=== PATIENT | female | born 1955 | race Caucasian/White ===

== ENCOUNTER → 2020-07-25 07:34 | Outpatient (BNVA) | payer MEDICARE, OTHER, SELFPAY | PROVIDERS: PCP Internal Medicine; Referring Provider Internal Medicine; Visit Provider Nurse Practitioner Gerontology | DX: E13.9 Other specified diabetes mellitus without complications (principal); S36.209S Unspecified injury of unspecified part of pancreas, sequela; E78.5 Hyperlipidemia, unspecified; E55.9 Vitamin D deficiency, unspecified; Z79.4 Long term (current) use of insulin | CPT/HCPCS: 82947; 99212 ==

== ENCOUNTER 2020-10-25 06:12 | Outpatient (REF) | payer MEDICARE, OTHER, SELFPAY ==
[2020-10-25 11:22] LABS: Estimated Average Glucose 169 mg/dL; Glucose Urine UA NEG (NEG); Hemoglobin A1c % 7.5 %; Leukocyte Esterase Urine 1+ (NEG); Nitrite Urine NEG (NEG); PH 7.5 (5.0-8.0); Specific Gravity - Urine 1.015 (1.005-1.025); Urine Blood NEG (NEG); Urine Ketones NEG (NEG); Urine Protein NEG (NEG-TRACE)
[2020-10-25 11:23] LABS: Basophils Percent Auto 0.4 % (0-2); Eosinophils Absolute Auto 0.2 X10*3/uL (0.0-0.4); Eosinophils Percent Auto 2.2 % (0-4); Hematocrit 41.7 % (37-47); Imm Gran Abs Auto 0.02 X10*3/uL (0.00-0.03); Imm Gran Pct Auto 0.2 % (0.0-0.4); Lymphocytes Absolute Auto 5.2 X10*3/uL (1.2-4.9); Lymphocytes Percent Auto 48.9 % (20-40); MANUAL DIFF FLAG SCAN; Mean Corpuscular HGB Conc 33.6 g/dl (31.0-35.0); Mean Corpuscular Hemoglobin 29.7 pg (27.0-33.0); Mean Corpuscular Volume 88.5 fL (80-98); Mean Platelet Volume 10.3 fL (9.4-12.3); Monocytes Absolute Auto 1.1 X10*3/uL (0.1-1.2); Monocytes Percent Auto 10.1 % (2-11); Neutrophils Absolute Auto 4.1 X10*3/uL (2.0-8.3); Neutrophils Percent Auto 38.2 % (45-73); Platelet Count 419 X10*3/uL (160-400); Red Blood Count 4.71 X10*6/uL (4.20-5.50); Red Cell Distribution Width 13.2 % (11.0-16.0); SCAN SMEAR FLAG 1; White Blood Count 10.6 X10*3/uL (4.8-10.8)
[2020-10-25 11:24] LABS: Appearance Urine HAZY; Color Urine YELLOW
[2020-10-25 11:44] LABS: Bacteria Urine TRACE /LPF; RBC Urine 0 /HPF (0); Squamous Epithelial Cell Urine 3+ /LPF
[2020-10-25 11:53] LABS: Alanine Aminotransferase 22 U/L (0-31); Albumin Level 4.4 g/dL (3.5-5.0); Alkaline Phosphatase 108 U/L (39-117); Anion Gap 14 (12-20); Aspartate Amino Transferase 20 U/L (5-31); Bilirubin Total 0.6 mg/dL (0.0-1.0); Blood Urea Nitrogen 14 mg/dL (9-16); Calcium 9.3 mg/dL (8.4-10.2); Carbon Dioxide 27 mmol/L (22-29); Chloride 102 mmol/L (96-108); Cholesterol 157 mg/dL; Estimated Glomerular Filt Rate > 60; Glucose Fasting 148 mg/dL (60-99); HDL Cholesterol 50 mg/dL; LDL Cholesterol Calculated 79 mg/dl; Potassium 4.3 mmol/L (3.3-5.1); Sodium 139 mmol/L (135-145); Total Protein 7.3 g/dL (6.5-8.0); Triglycerides 143 mg/dL
[2020-10-25 12:02] LABS: Creatinine Urine 64.37 mg/dL; Thyroid Stimulating Hormone 2.03 uIU/mL (0.32-4.0)
[2020-10-25 12:04] LABS: Creatinine Urine 64.89 mg/dL; Microalbum/Creatinine Ratio Ur 38.5 ug/mg cr
[2020-10-25 12:11] LABS: SLIDE REVIEW VERIFIED
[2020-10-25 12:21] LABS: Folate 18.4 ng/mL (> or = 4.0); Vitamin B12 449 pg/mL (200-900)
[2020-10-26 08:39] LABS: SARS COV2 IgG Negative (Negative)
== END 2020-10-25 06:13 | disposition home or self-care (01) ==
LOC: HO.HMGCLDS 06:12
PROVIDERS: PCP Internal Medicine; Visit Provider Internal Medicine
DX: E13.9 Other specified diabetes mellitus without complications (principal); S36.209S Unspecified injury of unspecified part of pancreas, sequela; E78.5 Hyperlipidemia, unspecified; E78.00 Pure hypercholesterolemia, unspecified; Z01.84 Encounter for antibody response examination
CPT/HCPCS: 36415; 80053; 80061; 81001; 82043; 82306; 82607; 82746; 83036; 84439; 84443; 85025; 86769

== ENCOUNTER 2020-11-06 11:11 | Outpatient (REF) | payer MEDICARE, OTHER, SELFPAY ==
[2020-11-06 13:53] LABS: Glucose Urine UA NEG (NEG); Leukocyte Esterase Urine TRACE (NEG); Nitrite Urine NEG (NEG); Specific Gravity - Urine <= 1.005 (1.005-1.025); UACC Culture Trigger YES; Urine Blood NEG (NEG); Urine Ketones NEG (NEG); Urine Protein NEG (NEG-TRACE)
[2020-11-06 13:55] LABS: Appearance Urine CLEAR; Color Urine YELLOW
[2020-11-06 14:05] LABS: Bacteria Urine TRACE /LPF; RBC Urine 0-2 /HPF (0); Squamous Epithelial Cell Urine 1+ /LPF; UACC CULT YES; WBC Urine 0-2 /HPF (0-4)
== END 2020-11-06 11:12 | disposition home or self-care (01) ==
LOC: HO.HMGCLDS 11:11
PROVIDERS: PCP Internal Medicine; Visit Provider Internal Medicine
DX: R30.0 Dysuria (principal); E78.5 Hyperlipidemia, unspecified
CPT/HCPCS: 81001; 87086

== ENCOUNTER → 2020-11-22 08:27 | Outpatient (BNVA) | payer MEDICARE, OTHER, SELFPAY | PROVIDERS: PCP Internal Medicine; Visit Provider Nurse Practitioner Gerontology | DX: Z13.89 Encounter for screening for other disorder (principal) | CPT/HCPCS: Q3014 ==

== ENCOUNTER 2021-02-05 15:10 | Outpatient (REF) | payer MEDICARE, OTHER, SELFPAY ==
--- NOTE | ~2021-02-05 | US_ITS ---
EXAMINATION: US THYROID CLINICAL INFORMATION: Nontoxic multinodular goiter. COMPARISON: Ultrasound soft tissue head/neck thyroid dated 02/09/2020 and 10/27/2018 TECHNIQUE: Linear transducer lind-scale and color Doppler examination with attention to the region of the thyroid. FINDINGS: SIZE: Measurements of the thyroid lobes and nodules are given in sagittal, anteroposterior and transverse dimensions respectively. Right Thyroid Lobe: 4.7 x 1.68 x 1.46 cm, volume 4.74 mL. Previously 4.1 x 1.8 x 1.7 cm, volume 6.6 mL. Parenchyma: The gland echotexture is homogeneous. Thyroid vascularity is normal. Left Thyroid Lobe: 3.73 x 1.68 x 1.47 cm, volume 4.83 mL. Previously 4.8 x 1.9 x 1.8 cm, volume 8.6 mL. Parenchyma: The gland echotexture is homogeneous. Thyroid vascularity is normal. Isthmus: 0.48 cm in maximum AP dimension. Previously 0.40 cm. Estimated total number of nodules greater than or equal to 1 cm: 2. Kennel Technician nodules are described as follows: 1. Location: Right inferior. Size: 1.1 x 0.75 x 0.81 cm, volume 0.35 mL. Previously: 0.90 x 0.60 x 0.90 cm, volume 0.25 mL. Nodule characteristics: Composition: Mixed cystic and solid (1). Echogenicity: Cannot be determined (1). Shape: Not taller than wide (0). Margins: Smooth (0). Echogenic Foci: Punctate echogenic foci (3). There are punctate echogenic foci. ACR TI-RADS total points: 5 Previous: n/a ACR TI-RADS category: 4 Previous: n/a Significant change in size (>/= 20% in 2 dimensions and minimal increase of 2 mm or 50% or greater increase in volume): None Change in features: None Change in ACR TI-RADS risk category: n/a 2. Location: Left mid. Size: 1.32 x 0.82 x 1.07 cm, volume 0.61 mL. Previously: 1.2 x 0.75 x 0.90 cm, volume 0.42 mL. Nodule characteristics: Composition: Spongiform (0). Echogenicity: Anechoic (0). Shape: Not taller than wide (0). Margins: Smooth (0). Echogenic Foci: None (0). ACR TI-RADS total points: 0 Previous: n/a ACR TI-RADS category: 1 Previous: n/a Significant change in size (>/= 20% in 2 dimensions and minimal increase of 2 mm or 50% or greater increase in volume): None Change in features: None Change in ACR TI-RADS risk category: n/a 3. Location: Left inferior. Size: 0.33 x 0.32 x 0.34 cm, volume 0.02 mL. Previously: 0.44 x 0.36 x 0.33 cm, volume 0.02 mL. Nodule characteristics: Composition: Cystic(0). ACR TI-RADS total points: 0 Previous: n/a ACR TI-RADS category: 1 Previous: n/a Significant change in size (>/= 20% in 2 dimensions and minimal increase of 2 mm or 50% or greater increase in volume): None Change in features: None Change in ACR TI-RADS risk category: Not available 4. Location: Left mid. Size: 0.92 x 0.55 x 0.85 cm, volume 0.22 mL. Previously: 0.85 x 0.51 x 0.63 cm, volume 0.27 mL. Nodule characteristics: Composition: Spongiform (0). Echogenicity: Anechoic (0). Shape: Not taller than wide (0). Margins: Smooth (0). Echogenic Foci: None (0). ACR TI-RADS total points: 0 Previous: n/a ACR TI-RADS category: 1 Previous: n/a Significant change in size (>/= 20% in 2 dimensions and minimal increase in TI-RADS 2 mm or 50% or greater increase in volume): None Change in features: None Change in ACR TI-RADS risk category: n/a NODES: No lymphadenopathy is seen in the tissue surrounding the thyroid gland. US/US thyroid IMPRESSION: Multiple thyroid nodules which are benign except for a right upper pole nodule which is 1.1 cm borderline ACR TI-RADS Category 4. ACR TI-RADS RECOMMENDATION REFERENCE: Ultrasound-guided fine-needle aspiration, followup ultrasound, no further followup. * TR1 (0 point) and TR 2 (2 points): No FNA or followup * TR3 (3 points): FNA if more than or equal to 2.5 cm in maximum dimension, followup ultrasound in 1, 3 and 5 years if 1.5 to 2.4 cm in maximum dimension. * TR4 (4-6 points): FNA if more than or equal to 1.5 cm in maximum dimension, followup ultrasound in 1, 2, 3 and 5 years if 1 to 1.4 cm in maximum dimension. * TR5 (more than or equal to 7 points): FNA if more than or equal to 1 cm in maximum dimension, followup ultrasound every year for 5 years if 0.5 to 0.9 cm in maximum dimension. * TR3, TR4 or TR5 nodules that are below the size threshold for followup receive no followup.
[2021-02-05 18:03] LABS: Free T4 (Free Thyroxine) 0.91 ng/dL (0.71-1.85)
== END 2021-02-05 15:11 | disposition home or self-care (01) ==
LOC: HO.HMGCX 15:10
PROVIDERS: PCP Internal Medicine; Visit Provider Internal Medicine Endocrinology, Diabetes & Metabolism
DX: E04.2 Nontoxic multinodular goiter (principal)
CPT/HCPCS: 36415; 76536; 84439; 84443

== ENCOUNTER → 2021-02-23 08:55 | Outpatient (BNVA) | payer MEDICARE, OTHER, SELFPAY | PROVIDERS: PCP Internal Medicine; Visit Provider Nurse Practitioner Gerontology | DX: E13.65 Other specified diabetes mellitus with hyperglycemia (principal); E78.5 Hyperlipidemia, unspecified; E55.9 Vitamin D deficiency, unspecified; S36.209S Unspecified injury of unspecified part of pancreas, sequela | CPT/HCPCS: 82947; 99212 ==

== ENCOUNTER → 2021-02-26 09:42 | Outpatient (BNVA) | payer MEDICARE, OTHER, SELFPAY | PROVIDERS: PCP Internal Medicine; Visit Provider Internal Medicine Endocrinology, Diabetes & Metabolism | CPT/HCPCS: Q3014 ==

== ENCOUNTER 2021-03-08 08:57 | Outpatient (REF) | payer MEDICARE, OTHER, SELFPAY ==
--- NOTE | 2021-03-08 09:34 | PM.OP ---
Brief Operative Note Date of Service: 03/08/21 Pre-op diagnosis: Nontoxic multinodular goiter Post-op diagnosis: same Procedure: This procedure was explained to the patient. Alternatives, risks and benefits were discussed. Written consent was obtained. After sterile preparation of the skin, fine-needle aspiration biopsy of right mid posterior thyroid nodule size 1.1 x 0.8 x 0.9 cm was performed under direct ultrasound guidance to confirm accurate needle placement. Four passes were performed with 27 gauge needles. Sample was submitted to cytology, initial cytology reading was adequate. Two passes were dedicated for [employer] genomic sequencing plaster model and mold maker test. Patient tolerated procedure well. Aftercare instructions were provided. Impression: uncomplicated fine-needle aspiration biopsy of right mid posterior thyroid nodule under direct ultrasound guidance. Surgeon: Aziza Orozco MD Anesthesia: local (Lidocaine 1 % 1ml) Was an Imagery Intelligence used for this Procedure?: No Estimated blood loss (mL): 0 Condition: stable Disposition: same day
== END 2021-03-08 08:58 | disposition home or self-care (01) ==
LOC: HO.US 08:57
PROVIDERS: Visit Provider Internal Medicine Endocrinology, Diabetes & Metabolism
DX: E04.2 Nontoxic multinodular goiter (principal)
CPT/HCPCS: 10005; 88172; 88173; 88177; 88305

== ENCOUNTER → 2021-03-23 09:02 | Outpatient (BNVA) | payer MEDICARE, OTHER, SELFPAY | PROVIDERS: PCP Internal Medicine; Visit Provider Internal Medicine Endocrinology, Diabetes & Metabolism | CPT/HCPCS: Q3014 ==

== ENCOUNTER → 2021-05-31 08:24 | Outpatient (BNVA) | payer MEDICARE, OTHER, SELFPAY | PROVIDERS: PCP Internal Medicine; Visit Provider Nurse Practitioner Gerontology | DX: E13.65 Other specified diabetes mellitus with hyperglycemia (principal); E78.5 Hyperlipidemia, unspecified; E55.9 Vitamin D deficiency, unspecified; S36.209S Unspecified injury of unspecified part of pancreas, sequela | CPT/HCPCS: 82947; 83036; 99212 ==

== ENCOUNTER 2021-07-27 08:36 | Outpatient (REF) | payer MEDICARE, OTHER, SELFPAY ==
[2021-07-27 11:41] LABS: Appearance Urine HAZY; Color Urine YELLOW; Glucose Urine UA NEG (NEG); Leukocyte Esterase Urine TRACE (NEG); Nitrite Urine NEG (NEG); PH 7.5 (5.0-8.0); UACC Culture Trigger YES; Urine Blood NEG (NEG); Urine Ketones NEG (NEG); Urine Protein NEG (NEG-TRACE)
[2021-07-27 12:14] LABS: RBC Urine 0-2 /HPF (0); Renal Epithelial Cells Urine TRACE /LPF; Squamous Epithelial Cell Urine 1+ /LPF; UACC CULT YES
== END 2021-07-27 08:37 | disposition home or self-care (01) ==
LOC: HO.HMGCLDS 08:36
PROVIDERS: PCP Internal Medicine; Visit Provider Internal Medicine
DX: E11.9 Type 2 diabetes mellitus without complications (principal); J44.9 Chronic obstructive pulmonary disease, unspecified; F41.1 Generalized anxiety disorder
CPT/HCPCS: 81001; 87086

== ENCOUNTER 2021-08-30 09:52 | Outpatient (REF) | payer MEDICARE, OTHER, SELFPAY ==
[2021-08-30 11:42] LABS: Creatinine Urine 157.08 mg/dL; Microalbum/Creatinine Ratio Ur 17.1 ug/mg cr
[2021-08-30 11:55] LABS: Alanine Aminotransferase 24 U/L (0-31); Albumin Level 4.3 g/dL (3.5-5.0); Alkaline Phosphatase 100 U/L (39-117); Anion Gap 15 (12-20); Aspartate Amino Transferase 21 U/L (5-31); Bilirubin Total 0.4 mg/dL (0.0-1.0); Blood Urea Nitrogen 14 mg/dL (9-16); Calcium 9.6 mg/dL (8.4-10.2); Carbon Dioxide 26 mmol/L (22-29); Chloride 105 mmol/L (96-108); Cholesterol 157 mg/dL; Estimated Glomerular Filt Rate > 60; Glucose Fasting 133 mg/dL (60-99); HDL Cholesterol 51 mg/dL; LDL Cholesterol Calculated 87 mg/dl; Potassium 4.3 mmol/L (3.3-5.1); Sodium 142 mmol/L (135-145); Total Protein 7.2 g/dL (6.5-8.0); Triglycerides 96 mg/dL
[2021-08-30 12:04] LABS: Vitamin D 25-OH Total 38.2 ng/mL (>30)
== END 2021-08-30 09:53 | disposition home or self-care (01) ==
LOC: HO.HMGCLDS 09:52
PROVIDERS: PCP Internal Medicine; Visit Provider Nurse Practitioner Gerontology
DX: E13.9 Other specified diabetes mellitus without complications (principal); S36.209S Unspecified injury of unspecified part of pancreas, sequela
CPT/HCPCS: 36415; 80053; 80061; 82043; 82306

== ENCOUNTER → 2021-10-03 08:26 | Outpatient (BNVA) | payer MEDICARE, OTHER, SELFPAY | PROVIDERS: PCP Internal Medicine; Visit Provider Nurse Practitioner Gerontology | DX: E13.65 Other specified diabetes mellitus with hyperglycemia (principal); S36.209S Unspecified injury of unspecified part of pancreas, sequela; E78.5 Hyperlipidemia, unspecified; I10 Essential (primary) hypertension; E55.9 Vitamin D deficiency, unspecified; Z79.4 Long term (current) use of insulin | CPT/HCPCS: 82947; 99212 ==

== ENCOUNTER 2021-12-10 15:57 | Inpatient (IN) | payer MEDICARE, OTHER, SELFPAY ==
--- NOTE | ~2021-12-10 | US_ITS ---
EXAMINATION: US VENOUS ULTRASOUND WITH DOPPLER LOWER EXTREMITY, BILATERAL CLINICAL INFORMATION: Pain. Cellulitis x10 days. COMPARISON: None TECHNIQUE: Ultrasound of the deep veins is performed from the hip to the calf with compression sonography and color and pulse Doppler assessment. Spectral analysis with color-flow imaging is performed. FINDINGS: RIGHT: There is normal venous compression and respiratory variation and augmented flow. The visualized common femoral vein, superficial femoral vein, profunda femoral vein, popliteal vein, and the trifurcation region shows no evidence of deep venous thrombosis. There is no significant popliteal fossa cyst. Prominent, though morphologically normal inguinal lymph node measuring up to 9 mm in short axis. LEFT: There is normal venous compression and respiratory variation and augmented flow. The visualized common femoral vein, superficial femoral vein, profunda femoral vein, popliteal vein, and the trifurcation region shows no evidence of deep venous thrombosis. There is no significant popliteal fossa cyst. Prominent though morphologically normal left inguinal lymph node measuring up to 7 mm in short axis. If the patient's symptoms persist, followup ultrasound in 5 days 7 days might be of value to exclude proximal propagation from a non-visualized calf vein. US/US venous duplex LE BI IMPRESSION: No DVT demonstrated in the bilateral lower extremities.
--- NOTE | ~2021-12-10 | XR_ITS ---
EXAMINATION: XR TIBIA AND FIBULA, RIGHT CLINICAL INFORMATION: Pain, cellulitis, suspicion for underlying osteomyelitis COMPARISON: 10/07/2019 TECHNIQUE: AP and lateral views of the right tibia and fibula were obtained. FINDINGS: There is a single partially threaded cannulated screw traversing the tibial plateau with adjacent bone cement. No fracture or malalignment. Bone mineralization is normal. No focal osteolysis. Mild soft tissue swelling in the lower leg and subcutaneous edema. No subcutaneous gas. Ankle is unremarkable. Mild lateral compartment osteoarthritis at the knee. XR/XR tibia fibula RT 2V IMPRESSION: Mild soft tissue swelling and subcutaneous edema at the right lower leg without radiographic findings of underlying osteomyelitis.
--- NOTE | ~2021-12-10 | XR_ITS ---
EXAMINATION: XR CHEST CLINICAL INFORMATION: Cough COMPARISON: 09/14/2019 TECHNIQUE: Frontal view of the chest was obtained. FINDINGS: Lungs are hyperexpanded. No consolidation, pneumothorax, or pleural effusion. Cardiac and mediastinal contours are normal. Pulmonary vasculature is normal. Bones are osteopenic. No acute osseous findings. Osteoarthritis is present in the acromioclavicular and glenohumeral joints. XR/XR chest 1V IMPRESSION: Hyperexpanded lungs. No acute pulmonary findings
[2021-12-10 16:58] VITALS: BP 187/107; PULSE 92; RESP 15; TEMP 36.3; O2SAT 98; BMI 26.9
[2021-12-10 18:01] LABS: Basophils Percent Auto 0.2 % (0-2); Eosinophils Absolute Auto 0.1 X10*3/uL (0.0-0.4); Eosinophils Percent Auto 0.7 % (0-4); Hematocrit 34.6 % (37.0-47.0); Hemoglobin 11.6 g/dl (12.0-16.0); Imm Gran Abs Auto 0.14 X10*3/uL (0.00-0.03); Imm Gran Pct Auto 0.8 % (0.0-0.4); Lymphocytes Absolute Auto 3.8 X10*3/uL (1.2-4.9); Lymphocytes Percent Auto 21.4 % (20-40); MANUAL DIFF FLAG SCAN; Mean Corpuscular HGB Conc 33.5 g/dl (31.0-35.0); Mean Corpuscular Hemoglobin 29.2 pg (27.0-33.0); Mean Corpuscular Volume 87.2 fL (80.0-98.0); Mean Platelet Volume 8.7 fL (9.4-12.3); Monocytes Absolute Auto 1.6 X10*3/uL (0.1-1.2); Monocytes Percent Auto 8.8 % (2-11); Neutrophils Absolute Auto 12.1 x10*3/uL (2.0-8.3); Neutrophils Percent Auto 68.1 % (45-73); Platelet Count 629 X10*3/uL (160-400); Red Blood Count 3.97 X10*6/uL (4.20-5.50); Red Cell Distribution Width 13.7 % (11.0-16.0); SCAN SMEAR FLAG 1; White Blood Count 17.7 X10*3/uL (4.8-10.8)
[2021-12-10 18:17] LABS: Lactic Acid 0.8 mmol/L (0.5-2.0)
[2021-12-10 18:21] LABS: Alanine Aminotransferase 31 U/L (0-31); Albumin Level 3.8 g/dL (3.5-5.0); Alkaline Phosphatase 135 U/L (39-117); Anion Gap 15 (12-20); Aspartate Amino Transferase 32 U/L (5-31); Bilirubin Total 0.3 mg/dL (0.0-1.0); Blood Urea Nitrogen 6 mg/dL (9-16); Calcium 9.6 mg/dL (8.4-10.2); Carbon Dioxide 28 mmol/L (22-29); Chloride 98 mmol/L (96-108); Creatinine Clr Calc Pharmacy 73.7; Estimated Glomerular Filt Rate > 60; Glucose Random 178 mg/dL (60-115); Potassium 3.6 mmol/L (3.3-5.1); Sodium 137 mmol/L (135-145); Total Protein 7.4 g/dL (6.5-8.0)
[2021-12-10 18:38] LABS: SLIDE REVIEW VERIFIED
[2021-12-11] VITALS (8 sets, daily range): BP systolic 139–164; BP diastolic 72–90; PULSE 78–94; RESP 14–24; TEMP 36.7–36.8; O2SAT 93–99
--- NOTE | 2021-12-11 00:50 | ED_ITS ---
HPI - Extremity Injury (Lower) General Chief Complaint: Skin/Abscess/Foreign Body Stated Complaint: both legs swelling infection Time Seen by Provider: 12/11/21 00:37 Source: patient and family Mode of arrival: ambulatory History of Present Illness HPI Narrative: 66-year-old female with history of Bechet's, bladder CA (recently completed her course of BCG), diabetes, and now presents with worsening lower extremity swelling with pain and noted worsening redness to the right ankle that initially was treated with outpatient antibiotics by her primary care provider but without improvement. Patient does describe associated chills as well as nausea. Patient states that she is been unable to take her medication for Bechet's due to undergoing the treatment for her bladder CA and then was additionally informed that she was unable to initiate treatment due to the infection in her right lower extremity. Patient states that she is developed ulcerations and painful lesions secondary to her untreated Bechet's. Related Data Home Medications Medication Instructions Recorded Confirmed aspirin 81 mg tablet,delayed 81 mg PO DAILY 07/18/20 10/03/21 release (Adult Aspirin Regimen) certolizumab pegol (Cimzia) 200 mg SUBCUT Q4W ea 07/18/20 05/31/21 multivitamin 1 tab PO DAILY 07/18/20 10/03/21 omega-3 fatty acids 1,000 mg 1,000 mg PO DAILY 07/18/20 10/03/21 capsule (Fish Oil Concentrate) biotin 10,000 mcg disintegrating 10,000 mcg PO DAILY 08/24/20 05/31/21 tablet blood-glucose meter #1 ea 08/24/20 05/31/21 omeprazole 40 mg capsule,delayed 40 mg PO DAILY cap 01/24/21 05/31/21 release cholecalciferol (vitamin D3) 10 20 mcg PO DAILY 05/31/21 10/03/21 mcg (400 unit) capsule Previous Rx's Medication Instructions Recorded blood-glucose meter (OneTouch #1 ea 07/18/20 Verio Flex Start) alcohol swabs (Alcohol Prep Pads) 1 pad TOPICAL QID #400 pad 09/19/20 pen needle, diabetic 32 gauge x #450 ea 05/03/21 atorvastatin 20 mg tablet 20 mg PO DAILY 30 Days #90 tab 07/17/21 blood sugar diagnostic (OneTouch #100 ea 12/28/21 Verio test strips) insulin lispro 100 unit/mL 2 - 6 unit (0.02 - 0.06 mL) .ROUTE 10/03/21 subcutaneous pen (Humalog KwikPen TID #15 ml (U-100) Insulin) lisinopril 2.5 mg tablet 2.5 mg PO DAILY #30 tab 10/03/21 lorazepam 1 mg tablet 1 mg PO DAILY PRN 30 Days #30 tab 10/17/21 insulin glargine 100 unit/mL (3 13 unit (0.13 mL) SUBCUT QPM 90 11/06/21 mL) subcutaneous pen (Lantus Days #11.7 ml Solostar U-100 Insulin) fluticasone propionate 50 2 spray INTRANASAL DAILY #16 g 11/09/21 mcg/actuation nasal spray,suspension (Flonase Allergy Relief) clindamycin HCl 150 mg capsule 150 mg PO Q6H 7 Days #28 cap 12/07/21 Allergies Allergy/AdvReac Type Severity Reaction Status Date / Time amoxicillin [AMOXICILLIN] Allergy Unknown HIVES Verified 12/10/21 15:09 azathioprine [From IMURAN] Allergy Unknown ABNORMAL Verified 12/10/21 15:09 LABS,HIVES etanercept [From ENBREL] Allergy Unknown HIVES Verified 12/10/21 15:09 infliximab [From REMICADE] Allergy Unknown RASH Verified 12/10/21 15:09 levofloxacin Allergy Unknown GI Upset Verified 12/10/21 15:09 nickel [NICKEL] Allergy Unknown UNKNOWN Verified 12/10/21 15:09 penicillin V Allergy Unknown hives Verified 12/10/21 15:09 Penicillins [PCN] Allergy Unknown HIVES Verified 12/10/21 15:09 Review of Systems Review of Systems: Pertinent positives and negatives as stated in HPI 10 point review of systems is otherwise negative. 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 Dysuria Essential hypertension Fractured coccyx GERD (gastroesophageal reflux disease) History of DVT (deep vein thrombosis) Hyperlipidemia LDL goal <100 Malignant neoplasm of pancreas, unspecified Non-toxic multinodular goiter Obstructive sleep apnea Osteoporosis Pulmonary nodule Right tibial fracture Thyroid nodule Tobacco abuse Type 2 diabetes mellitus with hyperglycemia Uncontrolled diabetes mellitus Vitamin D insufficiency Surgical History H/O splenectomy History of cholecystectomy History of colonoscopy History of open reduction and internal fixation (ORIF) procedure History of pancreatic surgery History of surgery History of varicose veins of lower extremity Family History Family History Father Diabetes Advanced cardiac disease Mother Asthma Osteoporosis Brain cancer Brother Lung cancer Sister Breast cancer History of Coumadin therapy Brother Colostomy in place Daughter No problems noted. Son No problems noted. Social History Social History Household Members: None Housing: House Alcohol intake: never Patient Tobacco Use Status: Current everyday Tobacco user Tobacco use type: Cigarette Cigarette Packs Per Day: 0.5 e-Cigarette/Vaping Use: Never Used Second Hand Smoke Exposure: No Advance Directives: No Advance Directives Information Provided: Yes Current occupational status: disabled Physical Exam Vital Signs: Vital Signs: Last Vital Signs Temp 98.1 F 12/11/21 00:24 Pulse 90 12/11/21 00:24 Resp 20 12/11/21 01:28 BP 164/90 H 12/11/21 00:24 Pulse Ox 99 12/11/21 00:24 BMI result Body Mass Index 26.9 VITAL SIGNS: Reviewed. GENERAL: Well developed, well nourished, in no acute distress. HEAD: Normocephalic/atraumatic EYES: PERRLA, EOMI EARS: Ext canals without abnormality OROPHARYNX: Intra oral lesions noted, posterior pharynx clear and non- erythematous without noted tonsillar enlargement/erythema/exudates NECK: Supple, no adenopathy LUNGS: Normal breath sounds. No adventitious sounds or accessory muscle use. SpO2<99> CARDIOVASCULAR: Regular rate and rhythm without noted murmurs, no JVD or lower extremity edema. ABDOMEN: Soft, non-tender, non-distended with bowel sounds. MUSCULOSKELETAL: No tenderness, deformities, or effusions noted on gross inspe ction. EXTREMITIES: No cyanosis, clubbing or edema. SKIN: Inspection of the skin reveals red lesions noted to extremities consistent with Bechet's NEUROLOGIC: Alert and oriented x 4. Strength and sensation to light touch were grossly intact x 4. Course Course Course Narrative: 66-year-old female with history and clinical presentation most consistent with cellulitis and suspect the possibility of osteomyelitis at the side prior tibial fracture. Patient will receive antibiotics after lactic acid blood cultures are obtained, COVID-19 testing is pending, no clinical suspicion for PE/DVT, chest and abdomen exams are benign at this time. 0045: I suspect infection Review of all investigations demonstrates likely cellulitic infection, patient provided with initial antibiotics, pain medication, and I discussed the case with the inpatient hospitalist who accepts admission. MDM - Extremity Injury (Lower) Lab Data Result diagrams: 12/10/21 17:51 12/10/21 17:51 Labs: Lab Results 12/10/21 12/10/21 12/10/21 Range/Units 17:51 17:51 17:51 WBC 17.7 H (4.8-10.8) X10*3/uL RBC 3.97 L (4.20-5.50) X10*6/uL Hgb 11.6 L (12.0-16.0) g/dl Hct 34.6 L (37.0-47.0) % MCV 87.2 (80.0-98.0) fL MCH 29.2 (27.0-33.0) pg MCHC 33.5 (31.0-35.0) g/dl RDW 13.7 (11.0-16.0) % Plt Count 629 H (160-400) X10*3/uL MPV 8.7 L (9.4-12.3) fL Immature Gran % (Auto) 0.8 H (0.0-0.4) % Neut % (Auto) 68.1 (45-73) % Lymph % (Auto) 21.4 (20-40) % [place] % (Auto) 8.8 (2-11) % Eos % (Auto) 0.7 (0-4) % Baso % (Auto) 0.2 (0-2) % Lymph # (Auto) 3.8 (1.2-4.9) X10*3/uL [place] # (Auto) 1.6 H (0.1-1.2) X10*3/uL Eos # (Auto) 0.1 (0.0-0.4) X10*3/uL Baso # (Auto) 0.0 (0.0-0.2) X10*3/uL Abs Immat Gran (auto) 0.14 H (0.00-0.03) X10*3/uL Absolute Neuts (auto) 12.1 H (2.0-8.3) x10*3/uL Absolute Nucleated RBC 0.000 (0.0-0.012) X10*3/uL Nucleated RBC % (auto) 0.0 (0.0-0.2) /100WBC Smear Tech's Comments VERIFIED Sodium 137 (135-145) mmol/L Potassium 3.6 (3.3-5.1) mmol/L Chloride 98 (96-108) mmol/L Carbon Dioxide 28 (22-29) mmol/L Anion Gap 15 (12-20) BUN 6 L D (9-16) mg/dL Creatinine 0.69 (0.5-1.4) mg/dL Estim Creat Clear Calc 73.7 Estimated GFR > 60 Random Glucose 178 H (60-115) mg/dL Lactic Acid 0.8 (0.5-2.0) mmol/L Calcium 9.6 (8.4-10.2) mg/dL Total Bilirubin 0.3 (0.0-1.0) mg/dL AST 32 H D (5-31) U/L ALT 31 (0-31) U/L Alkaline Phosphatase 135 H D (39-117) U/L C-Reactive Protein 17.16 H (< or = 0.50) mg/dL Total Protein 7.4 (6.5-8.0) g/dL Albumin 3.8 (3.5-5.0) g/dL COVID-19 (ANGEL) (Negative) COVID-19 Clin Com 12/11/21 12/11/21 Range/Units 01:26 01:26 WBC (4.8-10.8) X10*3/uL RBC (4.20-5.50) X10*6/uL Hgb (12.0-16.0) g/dl Hct (37.0-47.0) % MCV (80.0-98.0) fL MCH (27.0-33.0) pg MCHC (31.0-35.0) g/dl RDW (11.0-16.0) % Plt Count (160-400) X10*3/uL MPV (9.4-12.3) fL Immature Gran % (Auto) (0.0-0.4) % Neut % (Auto) (45-73) % Lymph % (Auto) (20-40) % [place] % (Auto) (2-11) % Eos % (Auto) (0-4) % Baso % (Auto) (0-2) % Lymph # (Auto) (1.2-4.9) X10*3/uL [place] # (Auto) (0.1-1.2) X10*3/uL Eos # (Auto) (0.0-0.4) X10*3/uL Baso # (Auto) (0.0-0.2) X10*3/uL Abs Immat Gran (auto) (0.00-0.03) X10*3/uL Absolute Neuts (auto) (2.0-8.3) x10*3/uL Absolute Nucleated RBC (0.0-0.012) X10*3/uL Nucleated RBC % (auto) (0.0-0.2) /100WBC Smear Tech's Comments Sodium (135-145) mmol/L Potassium (3.3-5.1) mmol/L Chloride (96-108) mmol/L Carbon Dioxide (22-29) mmol/L Anion Gap (12-20) BUN (9-16) mg/dL Creatinine (0.5-1.4) mg/dL Estim Creat Clear Calc Estimated GFR Random Glucose (60-115) mg/dL Lactic Acid 0.8 (0.5-2.0) mmol/L Calcium (8.4-10.2) mg/dL Total Bilirubin (0.0-1.0) mg/dL AST (5-31) U/L ALT (0-31) U/L Alkaline Phosphatase (39-117) U/L C-Reactive Protein (< or = 0.50) mg/dL Total Protein (6.5-8.0) g/dL Albumin (3.5-5.0) g/dL COVID-19 (ANGEL) Negative (Negative) COVID-19 Clin Com See Note Critical Care Time Critical Care Time Critical Care Time: Yes Total Critical Care Time: 30 Attestation: I personally attest to this time spent taking care of the patient. Discharge Plan Discharge Clinical Impression: Cellulitis, Sepsis, Behcet's disease, Diabetes, Bladder cancer Patient Disposition: Admitted As Inpatient
--- NOTE | 2021-12-11 00:51 | ECG_ITS ---
Test Reason : SOB Blood Pressure : / mmHG Vent. Rate : 089 BPM Atrial Rate : 089 BPM P-R Int : 188 ms QRS Dur : 080 ms QT Int : 360 ms P-R-T Axes : 052 -44 036 degrees QTc Int : 438 ms Normal sinus rhythm Left axis deviation Abnormal ECG No previous ECGs available Referred By: Gail Butcher Electronically Signed By:Tanmay King
[2021-12-11 01:15] LABS: C Reactive Protein 17.16 mg/dL (< or = 0.50)
[2021-12-11] MEDS: HYDROmorphone HCl 0.5 MG/0.5 ML SYRINGE 0.25 MG IVPUSH (01:28)
[2021-12-11] MEDS: cefTRIAXone sodium 1 GM in 0.9 % Sodium Chloride 50 ML IV (01:38)
[2021-12-11 01:40] LABS: COVID-19 Test Negative (Negative); IDNOW Serial# 16C4AD1C
[2021-12-11 01:42] LABS: Lactic Acid 0.8 mmol/L (0.5-2.0)
[2021-12-11] MEDS: vancomycin HCL 1,000 MG in 0.9 % Sodium Chloride 250 ML 270 MG IV (02:09)
[2021-12-11] MEDS: cefEPime HCl 1 GM in 0.9 % Sodium Chloride 50 ML IV (04:08)
[2021-12-11] MEDS: Cyclobenzaprine HCl 10 MG TABLET PO (04:09)
[2021-12-11] MEDS: Enoxaparin Sodium 40 MG/0.4 ML SYRINGE SUBCUT (04:10)
--- NOTE | 2021-12-11 06:15 | PM.IMHP ---
History of Present Illness Date of Service: 12/11/21 Chief Complaint: ankle pain this is a 66-year-old female with significant past medical history that includes fish at syndrome COPD, diabetes due to pancreatic cancer, hypertension, currently being treated for bladder cancer status post hyperlipidemia, anxiety, CHARLI on CPAP, presents the hospital with complaints of right ankle pain, swelling, and redness. Patient reports that her symptoms started about 1-2 weeks ago, she was seen by her manufacturing test technician without was infection but obtained labs from her without treating with antibiotics, she had worsening pain, went to [facility] last , was admitted but because she was left in the hallway due to lack of beds patient signed herself out AMA on Friday. She says that over the weekend her pain worsened to become 10/10, developed a fever of 101.2, worsening swelling as well as redness in her ankle. she called her PCP who prescribed her antibiotics over the last 3 days with clindamycin but her pain continued to worsen and therefore she decided to come to the hospital. Patient reports that the pain is now constant, associated with fever and chills, nonradiating. She otherwise has no chest pain, no shortness of breath, no abdominal pain nausea or vomiting, no diarrhea constipation, no urinary symptoms. No headache or change in vision. No orthopnea PND, no weakness numbness or tingling. patient does report pain in her calves bilaterally on arrival to the ED patient hemodynamically stable with no significant abnormal vitals Labs are significant for WBC count of 17.7, hemoglobin of 11.6, hematocrit 34.6, CRP of 17.16 no significant other abnormality venous duplex of legs bilaterally negative for any DVT Tibia fibula x-ray shows mild soft tissue swelling and subcutaneous edema at the right lower leg without radiographic findings of underlying osteomyelitis patient started on IV antibiotics and will be admitted for further management Review of Systems Review of Systems: Yes all other systems are reviewed and are negative [facility] Medical History Anxiety Behcet's syndrome COPD (chronic obstructive pulmonary disease) 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 Dysuria Essential hypertension Fractured coccyx GERD (gastroesophageal reflux disease) History of DVT (deep vein thrombosis) Hyperlipidemia LDL goal <100 Malignant neoplasm of pancreas, unspecified Non-toxic multinodular goiter Obstructive sleep apnea Osteoporosis Pulmonary nodule Right tibial fracture Thyroid nodule Tobacco abuse Type 2 diabetes mellitus with hyperglycemia Uncontrolled diabetes mellitus Vitamin D insufficiency Family History Father Diabetes Advanced cardiac disease Mother Asthma Osteoporosis Brain cancer Brother Lung cancer Sister Breast cancer History of Coumadin therapy Brother Colostomy in place Daughter No problems noted. Son No problems noted. Surgical History H/O splenectomy History of cholecystectomy History of colonoscopy History of open reduction and internal fixation (ORIF) procedure History of pancreatic surgery History of surgery History of varicose veins of lower extremity Social History Household Members: None Housing: House Alcohol intake: never Patient Tobacco Use Status: Current everyday Tobacco user Tobacco use type: Cigarette Cigarette Packs Per Day: 0.5 e-Cigarette/Vaping Use: Never Used Second Hand Smoke Exposure: No Advance Directives: No Advance Directives Information Provided: Yes Current occupational status: disabled Meds Allergies Allergy/AdvReac Type Severity Reaction Status Date / Time amoxicillin [AMOXICILLIN] Allergy Unknown HIVES Verified 12/10/21 15:09 azathioprine [From IMURAN] Allergy Unknown ABNORMAL Verified 12/10/21 15:09 LABS,HIVES etanercept [From ENBREL] Allergy Unknown HIVES Verified 12/10/21 15:09 infliximab [From REMICADE] Allergy Unknown RASH Verified 12/10/21 15:09 levofloxacin Allergy Unknown GI Upset Verified 12/10/21 15:09 nickel [NICKEL] Allergy Unknown UNKNOWN Verified 12/10/21 15:09 penicillin V Allergy Unknown hives Verified 12/10/21 15:09 Penicillins [PCN] Allergy Unknown HIVES Verified 12/10/21 15:09 Active Medications: Current Medications Acetaminophen (Acetaminophen 325 Mg Tablet) 650 mg PO Q6H PRN PRN Reason: Pain, Mild (Pain Scale 1-3) Dextrose (Dextrose 50 % 25 Gm/50 Ml Vial) 25 gm IVPUSH Q15M PRN; Protocol PRN Reason: per Hypoglycemia Standing Ord. Docusate Sodium (Docusate Sodium 100 Mg Capsule) 100 mg PO DAILY PRN PRN Reason: Constipation Enoxaparin Sodium (Enoxaparin Sodium 40 Mg/0.4 Ml Syringe) 40 mg SUBCUT Q24H MACY Last Admin: 12/11/21 04:10 Dose: 40 mg Documented by: Glucose (Glucose Gel 15 Gm Gel..Gram.) 15 gm PO Q15M PRN; Protocol PRN Reason: per Hypoglycemia Standing Ord. Vancomycin HCl 1,250 mg/ (Sodium Chloride) 250 mls @ 166.667 mls/hr IV Q24H [facility] Cefepime HCl 1 gm/ Sodium (Chloride) 50 mls @ 100 mls/hr IV Q8H [facility] Last Admin: 12/11/21 04:08 Dose: 100 mls/hr Documented by: Insulin Human Lispro (Insulin Lispro 100 Unit/Ml 3 Ml Vial) 0 unit SUBCUT QIDACHS [facility]; Protocol Morphine Sulfate (Morphine Sulfate 4 Mg/Ml Cartridge) 4 mg IVPUSH Q4H PRN; Protocol PRN Reason: Pain, Severe (Pain Scale 7-10) Ondansetron HCl (Ondansetron Hcl 4 Mg/2 Ml Vial) 4 mg IVPUSH Q8H PRN PRN Reason: Nausea and Vomiting Pharmacy Consult (Consult Rx Vancomycin Dosing) 1 each MISCELLANE DAILY PRN PRN Reason: Consult order Pharmacy Consult (Consult Rx Vancomycin Dosing) 1 each MISCELLANE DAILY PRN PRN Reason: Consult order Sodium Chloride (0.9 % Sodium Chloride Flush 3 Ml Syringe) 3 ml IVFLUSH QSHIFT [facility] Home Medications Medication Instructions Recorded Confirmed Last Taken Type aspirin 81 mg tablet,delayed 81 mg PO DAILY 07/18/20 10/03/21 Unknown History release (Adult Aspirin Regimen) certolizumab pegol (Cimzia) 200 mg SUBCUT Q4W 07/18/20 05/31/21 Unknown History multivitamin 1 tab PO DAILY 07/18/20 10/03/21 Unknown History omega-3 fatty acids 1,000 mg 1,000 mg PO DAILY 07/18/20 10/03/21 Unknown History capsule (Fish Oil Concentrate) biotin 10,000 mcg disintegrating 10,000 mcg PO DAILY 08/24/20 05/31/21 Unknown History tablet blood-glucose meter #1 ea 08/24/20 05/31/21 Unknown History omeprazole 40 mg capsule,delayed 40 mg PO DAILY cap 01/24/21 05/31/21 Unknown History release cholecalciferol (vitamin D3) 10 20 mcg PO DAILY 05/31/21 10/03/21 Unknown History mcg (400 unit) capsule Physical Exam Vital Signs and Narrative: Vital Signs: Last Vital Signs Temp 98.1 F 12/11/21 00:24 Pulse 79 12/11/21 05:55 Resp 24 H 12/11/21 05:55 BP 159/83 H 12/11/21 05:55 Pulse Ox 98 12/11/21 05:55 BMI result Body Mass Index 26.9 Const: General: cooperative and no acute distress Orientation/consciousness: patient oriented x3 Eyes: General: appearance normal, both eyes and all related structures Resp: Effort & Inspection: normal respiratory effort Auscultation: clear to auscultation bilaterally Cardio: Rate: regular rate Rhythm: regular rhythm GI: Palpation (GI): Soft to palpation Auscultation: normal bowel sounds Skin: Other: Erythema of medial aspect of right lower extremity around the ankle region Neuro: General: patient oriented x3 Cognition (Neuro): normal cognition Extrem: Other: erythema, warmth, tenderness, at the medial aspect of right ankle region Results Labs CBC and Chem 7: 12/10/21 17:51 12/10/21 17:51 Labs: Laboratory Results - last 24 hr 12/10/21 12/10/21 12/10/21 17:51 17:51 17:51 MCV 87.2 MCH 29.2 MCHC 33.5 RDW 13.7 Plt Count 629 H MPV 8.7 L Immature Gran % (Auto) 0.8 H Neut % (Auto) 68.1 Lymph % (Auto) 21.4 [place] % (Auto) 8.8 Eos % (Auto) 0.7 Baso % (Auto) 0.2 Lymph # (Auto) 3.8 [place] # (Auto) 1.6 H Eos # (Auto) 0.1 Baso # (Auto) 0.0 Abs Immat Gran (auto) 0.14 H Absolute Neuts (auto) 12.1 H Absolute Nucleated RBC 0.000 Nucleated RBC % (auto) 0.0 Smear Tech's Comments VERIFIED Anion Gap 15 Estim Creat Clear Calc 73.7 Estimated GFR > 60 Random Glucose 178 H Lactic Acid 0.8 Calcium 9.6 Total Bilirubin 0.3 AST 32 H D ALT 31 Alkaline Phosphatase 135 H D C-Reactive Protein 17.16 H Total Protein 7.4 Albumin 3.8 COVID-19 (ANGEL) COVID-19 Clin Com 12/11/21 12/11/21 01:26 01:26 MCV MCH MCHC RDW Plt Count MPV Immature Gran % (Auto) Neut % (Auto) Lymph % (Auto) [place] % (Auto) Eos % (Auto) Baso % (Auto) Lymph # (Auto) [place] # (Auto) Eos # (Auto) Baso # (Auto) Abs Immat Gran (auto) Absolute Neuts (auto) Absolute Nucleated RBC Nucleated RBC % (auto) Smear Tech's Comments Anion Gap Estim Creat Clear Calc Estimated GFR Random Glucose Lactic Acid 0.8 Calcium Total Bilirubin AST ALT Alkaline Phosphatase C-Reactive Protein Total Protein Albumin COVID-19 (ANGEL) Negative COVID-19 Clin Com See Note Imaging Radiologist's Impressions: Impressions Chest X-Ray 12/11/21 02:24 IMPRESSION: Hyperexpanded lungs. No acute pulmonary findings Tibia/Fibula X-Ray 12/11/21 02:28 IMPRESSION: Mild soft tissue swelling and subcutaneous edema at the right lower leg without radiographic findings of underlying osteomyelitis. Venous Duplex 12/11/21 04:05 IMPRESSION: No DVT demonstrated in the bilateral lower extremities. Assessment and Plan (1) Cellulitis: Status: Acute (2) Sepsis: Status: Acute Plan 66-year-old female with various medical history including pancreatic cancer status post surgical intervention, diabetes, recent bladder cancer status post mass removal from the bladder, being admitted for management of cellulitis in the right ankle # sepsis - has tachypnea, leukocytosis - no lactic acidosis, afebrile - source likely cellulitis versus osteomyelitis given her history of diabetes as well as elevated CRP - patient failed outpatient antibiotic therapy - will treat with IV antibiotics - follow cultures # right ankle cellulitis - his elevated CRP, erythema, tenderness, warmth around the medial aspect of right ankle - will treat with IV antibiotics - follow cultures - will consult Infectious Disease to rule out osteomyelitis - will not order MRI pending infectious disease recommendation # CHARLI - CPAP at bedtime # hyperlipidemia - continue statin patient will be admitted for IV antibiotics as she had failed outpatient therapy with clindamycin DVT prophylaxis: Lovenox Quality Stroke Does the patient have a stroke diagnosis?: No VTE Prior VTE?: No VTE Risk Level:: Medical - moderate - high VTE Device Contraindication: Treatment Not Indicated VTE Drug Contraindication: N/A - Med Ordered
[2021-12-11] MEDS: Morphine Sulfate 4 MG/ML CARTRIDGE IVPUSH ×3 (06:38→16:29)
[2021-12-11 06:58] LABS: Basophils Percent Auto 0.2 % (0-2); Eosinophils Absolute Auto 0.1 X10*3/uL (0.0-0.4); Eosinophils Percent Auto 0.8 % (0-4); Hematocrit 33.5 % (37.0-47.0); Hemoglobin 11.2 g/dl (12.0-16.0); Imm Gran Abs Auto 0.14 X10*3/uL (0.00-0.03); Imm Gran Pct Auto 0.8 % (0.0-0.4); Lymphocytes Absolute Auto 3.8 X10*3/uL (1.2-4.9); MANUAL DIFF FLAG SCAN; Mean Corpuscular HGB Conc 33.4 g/dl (31.0-35.0); Mean Corpuscular Hemoglobin 28.9 pg (27.0-33.0); Mean Corpuscular Volume 86.6 fL (80.0-98.0); Mean Platelet Volume 8.6 fL (9.4-12.3); Monocytes Absolute Auto 1.7 X10*3/uL (0.1-1.2); Monocytes Percent Auto 9.6 % (2-11); Neutrophils Absolute Auto 12.1 x10*3/uL (2.0-8.3); Neutrophils Percent Auto 67.6 % (45-73); Platelet Count 608 X10*3/uL (160-400); Red Blood Count 3.87 X10*6/uL (4.20-5.50); Red Cell Distribution Width 13.9 % (11.0-16.0); SCAN SMEAR FLAG 1; White Blood Count 17.9 X10*3/uL (4.8-10.8)
[2021-12-11 07:14] LABS: Anion Gap 13 (12-20); Blood Urea Nitrogen 6 mg/dL (9-16); Calcium 8.6 mg/dL (8.4-10.2); Carbon Dioxide 27 mmol/L (22-29); Chloride 99 mmol/L (96-108); Creatinine Clr Calc Pharmacy 79.4; Estimated Glomerular Filt Rate > 60; Glucose Random 218 mg/dL (60-115); Potassium 3.8 mmol/L (3.3-5.1); Sodium 135 mmol/L (135-145)
[2021-12-11 07:24] LABS: Glucose, Whole Blood 210 mg/dL (60-115)
[2021-12-11 07:27] LABS: SLIDE REVIEW VERIFIED
[2021-12-11 07:33] LABS: Erythrocyte Sedimentation Rate 65 MM/HR (0-20)
--- NOTE | 2021-12-11 08:00 | PHA.MEDREC ---
Pharmacy Consult ? Medication Reconciliation Pharmacy has reviewed the medication reconciliation completed by Nicholas. Daphney Joshi, PharmD
[2021-12-11] MEDS: Insulin Lispro 100 UNIT/ML 3 ML VIAL SUBCUT ×4 (08:04→22:30)
[2021-12-11] MEDS: 0.9 % Sodium Chloride Flush 3 ML SYRINGE IVFLUSH (08:06)
[2021-12-11] MEDS: Omeprazole 40 MG CAPSULE.DR PO (08:15)
[2021-12-11] MEDS: Aspirin Enteric Coated 81 MG TABLET.DR PO (08:15)
[2021-12-11] MEDS: Atorvastatin Calcium 20 MG TABLET PO (08:15)
[2021-12-11] MEDS: lisinopriL 2.5 MG TABLET PO (08:15)
[2021-12-11] MEDS: Multivitamin TABLET 1 TAB PO (08:15)
--- NOTE | 2021-12-11 09:00 | PHA.PROG ---
Admission Date/Time: December 11, 2021 02:02 Indication: Sepsis - cellutlis/possible osteomylitis Weight in k.946 kg Adjusted body weight in K.018 kg [place] body weight in K.4 kg Obesity Dosing Indication % IBW: Serum Creatinine - Last 168 Hours 12/10/21 12/11/21 17:51 06:37 Creatinine 0.69 0.64 Estimated CrCl and GFR - Last 168 Hours 12/10/21 12/11/21 17:51 06:37 Estim Creat Clear Calc 73.7 79.4 Estimated GFR > 60 > 60 Vancomycin Loading Dose: 1000 mg (14 mg/kg) Current Vancomycin Dosing Regimen: 750 mg Q12H Date and Time for next Vancomycin Level to be drawn: 12/12 @ 1200 Pharmacist Comments on Vancomycin Plan: Patient was given vancomycin 1000 mg in the ED 12/11 @ 0209. Since patient was no given a full loading dose, we will start the patient on Q12H dose. Due to age patient may need Q24H dosing however renal function is good therefore will trial the Q12H to get patient to therapeutic levels. Vancomycin 750 mg Q12H will begin 12/11 @ 1400. Expected AUC 196 with a trough of 15.7 Trough will be drawn prior to 4th dose. Pharmacy will monitor renal fucntion daily Daphney Joshi PharmD Vancomycin dosing will take advantage of [employer] as a clinical decision support tool that uses Bayesian modeling to calculate individual patient's pharmacokinetic parameters and forecast the patient's drug concentration time course with the target goal AUC 24 range of 400 - 600 mg/L/hr.
--- NOTE | 2021-12-11 09:17 | MHC.CM.PN ---
PT REPORTS SHE LIVES ALONE AND IS USUALLY INDEPENDENT WITH CARE PT REPORTS AT BASELINE SHE USES NO DME HOWEVER SHE HAD TO BORROW A WALKER DUE TO THE CONDITION OF HER FEET PT HAS NO SERVICES IN THE HOME PT REPORTS SHE IS VACCINATED AGAINST COVID-19, AND HAS RECEIVED THE BOOSTER PT PROVIDED A COPY OF HER HCP TODAY WHICH WILL BE SCANNED INTO EMR PT CONFIRMS HER PCP IS JOSE SCHULZ IMM DELIVERED, COPY SENT TO [facility] DC PLAN IS TBD PENDING WORKUP. HOME VS HOME WITH VNA AND POSSIBLY HI IF + FOR OSTEOMYELITIS VS STR. PTS PREFERENCE IS TO RETURN HOME IF POSSIBLE
[2021-12-11] MEDS: methylPREDNISolone Sod Succ 40 MG/ML VIAL IVPUSH (10:17)
--- NOTE | 2021-12-11 10:50 | HO.PM.IMPN ---
Subjective Subjective Date of Service: 12/11/21 Interval History: cc: right ankle pain interval history:unchanged Cardiovascular Cardiovascular: Reports no additional cardiovascular complaints Respiratory Respiratory: Reports no additional respiratory complaints Physical Exam Vital Signs: Vital Signs: Last Vital Signs Temp 98.2 F 12/11/21 09:15 Pulse 79 12/11/21 10:24 Resp 18 12/11/21 10:24 BP 139/76 12/11/21 10:24 Pulse Ox 93 12/11/21 10:24 BMI result Body Mass Index 26.9 General: AO X 3, in pain Resp: CTA bilateral, no accessory muscles used CVS: S1,S2,RRR GI: soft, non tender, non distended Neuro: motor grossly intact, alert Psych: appropriate affect, appropriate insight ext: right ankle swelling, overlying erythema Objective Data Active Medications Acetaminophen (Acetaminophen 325 Mg Tablet) 650 mg PO Q6H PRN PRN Reason: Pain, Mild (Pain Scale 1-3) Aspirin (Aspirin Enteric Coated 81 Mg Tablet.) 81 mg PO DAILY [facility] Last Admin: 12/11/21 08:15 Dose: 81 mg Documented by: AMA Atorvastatin Calcium (Atorvastatin Calcium 20 Mg Tablet) 20 mg PO DAILY [facility] Last Admin: 12/11/21 08:15 Dose: 20 mg Documented by: AMA Dextrose (Dextrose 50 % 25 Gm/50 Ml Vial) 25 gm IVPUSH Q15M PRN; Protocol PRN Reason: per Hypoglycemia Standing Ord. Docusate Sodium (Docusate Sodium 100 Mg Capsule) 100 mg PO DAILY PRN PRN Reason: Constipation Enoxaparin Sodium (Enoxaparin Sodium 40 Mg/0.4 Ml Syringe) 40 mg SUBCUT Q24H [facility] Last Admin: 12/11/21 04:10 Dose: 40 mg Documented by: JOIE Glucose (Glucose Gel 15 Gm Gel..Gram.) 15 gm PO Q15M PRN; Protocol PRN Reason: per Hypoglycemia Standing Ord. Vancomycin HCl 750 mg/ Sodium (Chloride) 265 mls @ 265 mls/hr IV Q12H [facility] Insulin Glargine (Insulin Glargine,Hum.Rec.Anlog 100 Unit/Ml 10 Ml Vial) 13 unit SUBCUT BEDTIME [facility] Insulin Human Lispro (Insulin Lispro 100 Unit/Ml 3 Ml Vial) 0 unit SUBCUT QIDACHS [facility]; Protocol Last Admin: 12/11/21 08:04 Dose: 4 unit Documented by: AMA Lisinopril (Lisinopril 2.5 Mg Tablet) 2.5 mg PO DAILY [facility]; Protocol Last Admin: 12/11/21 08:15 Dose: 2.5 mg Documented by: AMA Lorazepam (Lorazepam 1 Mg Tablet) 1 mg PO DAILY PRN PRN Reason: anxiety Morphine Sulfate (Morphine Sulfate 4 Mg/Ml Cartridge) 4 mg IVPUSH Q4H PRN; Protocol PRN Reason: Pain, Severe (Pain Scale 7-10) Last Admin: 12/11/21 10:23 Dose: 4 mg Documented by: BRAYAN Multivitamins/Vitamin C (Multivitamin Tablet) 1 tab PO DAILY [facility] Last Admin: 12/11/21 08:15 Dose: 1 tab Documented by: AMA Omeprazole (Omeprazole 40 Mg Capsule.Dr) 40 mg PO DAILY@0630 [facility] Last Admin: 12/11/21 08:15 Dose: 40 mg Documented by: AMA Ondansetron HCl (Ondansetron Hcl 4 Mg/2 Ml Vial) 4 mg IVPUSH Q8H PRN PRN Reason: Nausea and Vomiting Pharmacy Consult (Consult Rx Vancomycin Dosing) 1 each MISCELLANE DAILY PRN PRN Reason: Consult order Prednisone (Prednisone 20 Mg Tablet) 40 mg PO DAILY [facility] Sodium Chloride (0.9 % Sodium Chloride Flush 3 Ml Syringe) 3 ml IVFLUSH QSHIFT [facility] Last Admin: 12/11/21 08:06 Dose: 3 ml Documented by: AMA Labs CBC & Chem 7: 12/11/21 06:37 12/11/21 06:37 Labs: Laboratory Results - last 24 hr 12/10/21 12/10/21 12/10/21 17:51 17:51 17:51 MCV 87.2 MCH 29.2 MCHC 33.5 RDW 13.7 Plt Count 629 H MPV 8.7 L Immature Gran % (Auto) 0.8 H Neut % (Auto) 68.1 Lymph % (Auto) 21.4 [place] % (Auto) 8.8 Eos % (Auto) 0.7 Baso % (Auto) 0.2 Lymph # (Auto) 3.8 [place] # (Auto) 1.6 H Eos # (Auto) 0.1 Baso # (Auto) 0.0 Abs Immat Gran (auto) 0.14 H Absolute Neuts (auto) 12.1 H Absolute Nucleated RBC 0.000 Nucleated RBC % (auto) 0.0 Smear Tech's Comments VERIFIED ESR Anion Gap 15 Estim Creat Clear Calc 73.7 Estimated GFR > 60 POC Glucose Random Glucose 178 H Lactic Acid 0.8 Calcium 9.6 Total Bilirubin 0.3 AST 32 H D ALT 31 Alkaline Phosphatase 135 H D C-Reactive Protein 17.16 H Total Protein 7.4 Albumin 3.8 COVID-19 (ANGEL) COVID-19 Clin Com 12/11/21 12/11/21 12/11/21 01:26 01:26 06:37 MCV 86.6 MCH 28.9 MCHC 33.4 RDW 13.9 Plt Count 608 H MPV 8.6 L Immature Gran % (Auto) 0.8 H Neut % (Auto) 67.6 Lymph % (Auto) 21.0 [place] % (Auto) 9.6 Eos % (Auto) 0.8 Baso % (Auto) 0.2 Lymph # (Auto) 3.8 [place] # (Auto) 1.7 H Eos # (Auto) 0.1 Baso # (Auto) 0.0 Abs Immat Gran (auto) 0.14 H Absolute Neuts (auto) 12.1 H Absolute Nucleated RBC 0.000 Nucleated RBC % (auto) 0.0 Smear Tech's Comments VERIFIED ESR Anion Gap Estim Creat Clear Calc Estimated GFR POC Glucose Random Glucose Lactic Acid 0.8 Calcium Total Bilirubin AST ALT Alkaline Phosphatase C-Reactive Protein Total Protein Albumin COVID-19 (ANGEL) Negative COVID-19 Clin Com See Note 12/11/21 12/11/21 12/11/21 06:37 06:37 07:21 MCV MCH MCHC RDW Plt Count MPV Immature Gran % (Auto) Neut % (Auto) Lymph % (Auto) [place] % (Auto) Eos % (Auto) Baso % (Auto) Lymph # (Auto) [place] # (Auto) Eos # (Auto) Baso # (Auto) Abs Immat Gran (auto) Absolute Neuts (auto) Absolute Nucleated RBC Nucleated RBC % (auto) Smear Tech's Comments ESR 65 H Anion Gap 13 Estim Creat Clear Calc 79.4 Estimated GFR > 60 POC Glucose 210 H Random Glucose 218 H Lactic Acid Calcium 8.6 D Total Bilirubin AST ALT Alkaline Phosphatase C-Reactive Protein Total Protein Albumin COVID-19 (ANGEL) COVID-19 Clin Com Assessment and Plan (1) Behcet's disease: Status: Acute Plan 66F presented with right ankle pain and erythema SIRS due to inflammatory arthritis of right ankle in setting of Behcets flare doubt infection, but will continue iv vanc for now, follow up cultures, ID gram negative infection very unlikely, will dc cefepime will give solumedrol 40mg iv times one, then prednisone 40mg daily DM basal bolus insulin monitor closely for hyperglycemia while on steroids CHARLI cpap htn lisinopril hld statin gerd prilosec dvt prophlyaxis - lovenox full code reason for continued hospitalization:severe pain requiring iv pain meds, inability to ambulate Quality Stroke Does the patient have a stroke diagnosis?: No VTE Prior VTE?: No VTE Risk Level:: Medical - moderate - high VTE Device Contraindication: Treatment Not Indicated VTE Drug Contraindication: N/A - Med Ordered
[2021-12-11 12:35] LABS: Glucose, Whole Blood 202 mg/dL (60-115)
--- NOTE | 2021-12-11 12:54 | W.PM.IDCN ---
History of Present Illness Data of Consult Service Date: 12/11/21 Requesting physician: Vijay Orellana Primary Care Provider: Gloria Villarreal MD HPI Reason for consult: right lower redness She presents with redness and pain right lower extremity near ankle and pain on skin and pain moving ankle. Symptoms started 11/[address] from chemotherapy/ She has hospitalization at [facility] recently for this and saw Dr Granda of Rheumatology in house. 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 She also has had pancreatic cancer and surgery. While at [facility] her ESR was 30 and CRP 12.6 She had aspiration from ankle joint on 11/29 and no crystals and 30,000 WBC with negative cultures. She recieved Vancomycin,Cefepime and Flagyl there Orthopedics recommended no further aspiration. She has no tick bites or Lyme disease. Area wasnt give injection of steroids because patient has believed to be steroid induced hyperglycemia over 500 due to prior intrarticular injection. She had fever and chills then and now and now has mouth ulcers and right wrist painful reddened macular lesion which is new. 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 Dysuria Essential hypertension Fractured coccyx GERD (gastroesophageal reflux disease) History of DVT (deep vein thrombosis) Hyperlipidemia LDL goal <100 Malignant neoplasm of pancreas, unspecified Non-toxic multinodular goiter Obstructive sleep apnea Osteoporosis Pulmonary nodule Right tibial fracture Thyroid nodule Tobacco abuse Type 2 diabetes mellitus with hyperglycemia Uncontrolled diabetes mellitus Vitamin D insufficiency Family History Family History Father Diabetes Advanced cardiac disease Mother Asthma Osteoporosis Brain cancer Brother Lung cancer Sister Breast cancer History of Coumadin therapy Brother Colostomy in place Daughter No problems noted. Son No problems noted. Family history: reviewed and not pertinent Surgical History Surgical History H/O splenectomy History of cholecystectomy History of colonoscopy History of open reduction and internal fixation (ORIF) procedure History of pancreatic surgery History of surgery History of varicose veins of lower extremity Social History Social History Household Members: None Housing: House Alcohol intake: never Patient Tobacco Use Status: Current everyday Tobacco user Tobacco use type: Cigarette Cigarette Packs Per Day: 0.5 e-Cigarette/Vaping Use: Never Used Second Hand Smoke Exposure: No Advance Directives Date on File: 12/11/21 service: No Current occupational status: retired Meds Allergies Allergy/AdvReac Type Severity Reaction Status Date / Time amoxicillin [AMOXICILLIN] Allergy Unknown HIVES Verified 12/10/21 15:09 azathioprine [From IMURAN] Allergy Unknown ABNORMAL Verified 12/10/21 15:09 LABS,HIVES etanercept [From ENBREL] Allergy Unknown HIVES Verified 12/10/21 15:09 infliximab [From REMICADE] Allergy Unknown RASH Verified 12/10/21 15:09 levofloxacin Allergy Unknown GI Upset Verified 12/10/21 15:09 nickel [NICKEL] Allergy Unknown UNKNOWN Verified 12/10/21 15:09 penicillin V Allergy Unknown hives Verified 12/10/21 15:09 Penicillins [PCN] Allergy Unknown HIVES Verified 12/10/21 15:09 Active Medications: Current Medications Acetaminophen (Acetaminophen 325 Mg Tablet) 650 mg PO Q6H PRN PRN Reason: Pain, Mild (Pain Scale 1-3) Aspirin (Aspirin Enteric Coated 81 Mg Tablet.Dr) 81 mg PO DAILY [facility]S [facility]CLUDE 234 BEDS AT THE [facility] Last Admin: 12/11/21 08:15 Dose: 81 mg Documented by: Atorvastatin Calcium (Atorvastatin Calcium 20 Mg Tablet) 20 mg PO DAILY [facility]CLUDE 234 BEDS AT THE [facility] Last Admin: 12/11/21 08:15 Dose: 20 mg Documented by: Dextrose (Dextrose 50 % 25 Gm/50 Ml Vial) 25 gm IVPUSH Q15M PRN; Protocol PRN Reason: per Hypoglycemia Standing Ord. Docusate Sodium (Docusate Sodium 100 Mg Capsule) 100 mg PO DAILY PRN PRN Reason: Constipation Enoxaparin Sodium (Enoxaparin Sodium 40 Mg/0.4 Ml Syringe) 40 mg SUBCUT Q24H [facility]S [facility]CLUDE 234 BEDS AT THE [facility] Last Admin: 12/11/21 04:10 Dose: 40 mg Documented by: Glucose (Glucose Gel 15 Gm Gel..Gram.) 15 gm PO Q15M PRN; Protocol PRN Reason: per Hypoglycemia Standing Ord. Vancomycin HCl 750 mg/ Sodium (Chloride) 265 mls @ 265 mls/hr IV Q12H [facility] 234 BEDS AT THE [facility] Insulin Glargine (Insulin Glargine,Hum.Rec.Anlog 100 Unit/Ml 10 Ml Vial) 13 unit SUBCUT BEDTIME [facility]CLUDE 234 BEDS AT THE [facility] Insulin Human Lispro (Insulin Lispro 100 Unit/Ml 3 Ml Vial) 0 unit SUBCUT QIDACHS [facility]S [facility]CLUDE 234 BEDS AT THE [facility]; Protocol Last Admin: 12/11/21 08:04 Dose: 4 unit Documented by: Lisinopril (Lisinopril 2.5 Mg Tablet) 2.5 mg PO DAILY [facility] 234 BEDS AT [facility]; Protocol Last Admin: 12/11/21 08:15 Dose: 2.5 mg Documented by: Lorazepam (Lorazepam 1 Mg Tablet) 1 mg PO DAILY PRN PRN Reason: anxiety Morphine Sulfate (Morphine Sulfate 4 Mg/Ml Cartridge) 4 mg IVPUSH Q4H PRN; Protocol PRN Reason: Pain, Severe (Pain Scale 7-10) Last Admin: 12/11/21 10:23 Dose: 4 mg Documented by: Multivitamins/Vitamin C (Multivitamin Tablet) 1 tab PO DAILY [facility]CLUDE 234 BEDS AT THE [facility] Last Admin: 12/11/21 08:15 Dose: 1 tab Documented by: Omeprazole (Omeprazole 40 Mg Capsule.) 40 mg PO DAILY@0630 [facility]S [facility]CLUDE 234 BEDS AT THE [facility] Last Admin: 12/11/21 08:15 Dose: 40 mg Documented by: Ondansetron HCl (Ondansetron Hcl 4 Mg/2 Ml Vial) 4 mg IVPUSH Q8H PRN PRN Reason: Nausea and Vomiting Pharmacy Consult (Consult Rx Vancomycin Dosing) 1 each MISCELLANE DAILY PRN PRN Reason: Consult order Prednisone (Prednisone 20 Mg Tablet) 40 mg PO DAILY [facility]CLUDE 234 BEDS AT THE [facility] Sodium Chloride (0.9 % Sodium Chloride Flush 3 Ml Syringe) 3 ml IVFLUSH QSHIFT COUNTS INCLUDE 234 BEDS AT THE [facility] Last Admin: 12/11/21 08:06 Dose: 3 ml Documented by: Home Medications Medication Instructions Recorded Confirmed Last Taken Type aspirin 81 mg tablet,delayed 81 mg PO DAILY 07/18/20 12/11/21 Unknown History release (Adult Aspirin Regimen) certolizumab pegol (Cimzia) 200 mg SUBCUT Q4W ea 07/18/20 12/11/21 Unknown History multivitamin 1 tab PO DAILY 07/18/20 12/11/21 Unknown History omega-3 fatty acids 1,000 mg 1,000 mg PO DAILY 07/18/20 12/11/21 Unknown History capsule (Fish Oil Concentrate) biotin 10,000 mcg disintegrating 10,000 mcg PO DAILY 08/24/20 12/11/21 Unknown History tablet blood-glucose meter #1 ea 08/24/20 05/31/21 Unknown History omeprazole 40 mg capsule,delayed 40 mg PO DAILY cap 01/24/21 12/11/21 Unknown History release cholecalciferol (vitamin D3) 10 20 mcg PO DAILY 05/31/21 12/11/21 Unknown History mcg (400 unit) capsule clindamycin HCl 150 mg capsule 1 cap PO Q6H 12/11/21 12/11/21 Unknown History Physical Exam Vital Signs: Vital Signs: Last Vital Signs Temp 98.2 F 12/11/21 09:15 Pulse 79 12/11/21 10:24 Resp 18 12/11/21 10:24 BP 139/76 12/11/21 10:24 Pulse Ox 93 12/11/21 10:24 BMI result Body Mass Index 26.9 Const: General: cooperative HEENT: Head: Yes normal to inspection Mouth/tongue images: 1. apthous lesion 2. second apthous lesion Resp: Effort & Inspection: normal respiratory effort Cardio: Rate: regular rate Rhythm: regular rhythm GI: Palpation (GI): Soft to palpation and nontender Skin: General skin exam: no rashes or lesions noted Extrem: Hand/finger images: 1. macular lesion Ankle/foot/toe images: 1. pain on flexion ankle and touching skin Results Labs CBC & Chem 7: 12/11/21 06:37 12/11/21 06:37 Labs: Short CBC 12/10/21 12/11/21 Range/Units 17:51 06:37 WBC 17.7 H 17.9 H (4.8-10.8) X10*3/uL Hgb 11.6 L 11.2 L (12.0-16.0) g/dl Hct 34.6 L 33.5 L (37.0-47.0) % Plt Count 629 H 608 H (160-400) X10*3/uL BMP 12/10/21 12/11/21 17:51 06:37 Sodium 137 135 Potassium 3.6 3.8 Chloride 98 99 Carbon Dioxide 28 27 BUN 6 L D 6 L Creatinine 0.69 0.64 Calcium 9.6 8.6 D Liver Function 12/10/21 Range/Units 17:51 Total Bilirubin 0.3 (0.0-1.0) mg/dL AST 32 H D (5-31) U/L ALT 31 (0-31) U/L Alkaline Phosphatase 135 H D (39-117) U/L Albumin 3.8 (3.5-5.0) g/dL Assessment and Plan (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 There are multiple areas involved with tongue, and right wrist and ankle painful to touch in a method similar to erythema nodosum (2) Diabetes: Status: Acute (3) Bladder cancer: Status: Acute Plan No antibiotics (no evidence of septic joint and has been tapped) Steroids oral and possible steroid cream.
--- NOTE | 2021-12-11 16:32 | PC.NURSE ---
Pt A&Ox4, LCA, RLE medial ankle with redness and swelling, per pt, swelling has decreased since her arrival to the hospital.+ pulses on both LE at this time. Pt states she is doing foot exercises while in bed to strengthen them. Pt states pain 5-6/10 at this time, medicated as per [facility] orders for pain. Pt has sore in her mouth which appear as ulcers at this time. Call cortes within reach. Pt questioning next dose of IV antibiotics. made aware. Will continue to monitor
[2021-12-11 18:30] LABS: Glucose, Whole Blood 446 mg/dL (60-115)
--- NOTE | 2021-12-11 20:16 | PC.NURSE ---
Pt A&OX3. Pleasant and cooperative. Speech is clear and appropriate. LS-CTA. Pt denies sob/cough. BS+. Pt tolerating diet with no c/o N/V/D. PP+, slight edema to bilater feet. Skin-right medical ankle, red/warm. ALPHONSO. Pt states pain is a 2/10 with ambulation, none at rest. Declines need for pain meds at this time. Will continue to monitor.
[2021-12-11 22:09] LABS: Glucose, Whole Blood 432 mg/dL (60-115)
[2021-12-11] MEDS: Insulin Glargine,Hum.rec.anlog 100 UNIT/ML 10 ML VIAL 13 UNIT SUBCUT (22:31)
[2021-12-12 01:06] LABS: Glucose, Whole Blood 265 mg/dL (60-115)
--- NOTE | 2021-12-12 01:08 | PC.NURSE ---
HS POC 432. ordered 15 units to cover and scheduled Lantus. Pt declined the 15 units. She took 10 units and asked that we recheck her BS later. Recheck of BS around 0100, 265. Pt back to bed. Will continue to monitor.
[2021-12-12] MEDS: Enoxaparin Sodium 40 MG/0.4 ML SYRINGE SUBCUT (03:26)
[2021-12-12] MEDS: 0.9 % Sodium Chloride Flush 3 ML SYRINGE IVFLUSH ×2 (03:26→08:00)
[2021-12-12 04:00] VITALS: BP 141/89; PULSE 72; RESP 17; TEMP 36.5; O2SAT 95
[2021-12-12 05:57] LABS: Hematocrit 31.8 % (37.0-47.0); Hemoglobin 10.6 g/dl (12.0-16.0); Mean Corpuscular HGB Conc 33.3 g/dl (31.0-35.0); Mean Corpuscular Volume 86.9 fL (80.0-98.0); Mean Platelet Volume 8.8 fL (9.4-12.3); Platelet Count 626 X10*3/uL (160-400); Red Blood Count 3.66 X10*6/uL (4.20-5.50); Red Cell Distribution Width 13.8 % (11.0-16.0); White Blood Count 18.2 X10*3/uL (4.8-10.8)
[2021-12-12 06:39] LABS: Anion Gap 13 (12-20); Blood Urea Nitrogen 14 mg/dL (9-16); Calcium 9.4 mg/dL (8.4-10.2); Carbon Dioxide 28 mmol/L (22-29); Chloride 98 mmol/L (96-108); Creatinine Clr Calc Pharmacy 70.6; Estimated Glomerular Filt Rate > 60; Glucose Fasting 229 mg/dL (60-99); Potassium 4.4 mmol/L (3.3-5.1); Sodium 135 mmol/L (135-145)
[2021-12-12] MEDS: Omeprazole 40 MG CAPSULE.DR PO (07:11)
[2021-12-12 07:27] VITALS: BP 147/73; PULSE 58; RESP 18; TEMP 36.3; O2SAT 95
[2021-12-12 07:46] LABS: Glucose, Whole Blood 227 mg/dL (60-115)
[2021-12-12] MEDS: Insulin Lispro 100 UNIT/ML 3 ML VIAL SUBCUT ×2 (07:58→12:02)
[2021-12-12] MEDS: predniSONE 20 MG TABLET 40 MG PO (07:58)
[2021-12-12] MEDS: lisinopriL 2.5 MG TABLET PO (07:59)
[2021-12-12] MEDS: Multivitamin TABLET 1 TAB PO (07:59)
[2021-12-12] MEDS: Aspirin Enteric Coated 81 MG TABLET.DR PO (07:59)
[2021-12-12] MEDS: Atorvastatin Calcium 20 MG TABLET PO (07:59)
[2021-12-12] MEDS: Acetaminophen 325 MG TABLET 650 MG PO (08:04)
[2021-12-12] MEDS: Insulin Glargine,Hum.rec.anlog 100 UNIT/ML 10 ML VIAL SUBCUT (09:09)
[2021-12-12 10:51] VITALS: BP 144/67; PULSE 85; RESP 18; TEMP 36.6; O2SAT 95
--- NOTE | 2021-12-12 10:56 | PM.DS ---
DS: Providers Provider Date of Service: 12/12/21 Date of admission: 12/11/21 02:02 Primary care physician: Gloria Villarreal MD Consults: 12/11/21 02:01 Consult to Infectious Diseases Routine Consulting Provider: Paula Lopez Reason for consultation: cellulitis/ osteo? 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 hyperlipidemia, anxiety, CHARLI on CPAP, presents the hospital with complaints of right ankle pain, swelling, and redness.? Patient reports that her symptoms started about 1-2 weeks ago, she was seen by her front office clerk without was infection but obtained labs from her without treating with antibiotics, she had worsening pain, went to [facility]? last , was admitted but because she was left in the hallway due to lack of? beds patient signed herself out AMA on Friday.? She says that over the weekend her pain worsened to become 10/10, developed a fever of 101.2, worsening swelling as well as redness in her ankle. she called her PCP who prescribed her antibiotics over the last 3 days with clindamycin but her pain continued to worsen and therefore she decided to come to the hospital.? Patient reports that the pain is now constant, associated with fever and chills, nonradiating. ? She otherwise has no chest pain, no shortness of breath, no abdominal pain nausea or vomiting, no diarrhea constipation, no urinary symptoms.? No headache or change in vision.? No orthopnea PND, no weakness numbness or tingling. ? patient does report pain in her calves? bilaterally. Tibia fibula x-ray shows mild soft tissue swelling and subcutaneous edema at the right lower leg without radiographic findings of underlying osteomyelitis ?patient started on IV antibiotics and will be admitted for further management Hospital course The patient was evaluated for possible infectious etiology by infectious disease specialist who recommended no antibiotic needed as her symptoms typically describes Behcet's disease exacerbation treated with IV steroids for the 1st days then changed to p.o. prednisone with good response as the wounds and the mouth ulcers improved significantly and patient was able to tolerate diet with no reported pain in her mouth And was able to ambulate walking in the floor and going to the bathroom with no reported pain. Noted to have hyperglycemia associated with steroid usage. Lantus insulin increased to 20 units at bedtime and advised to continue with that at home while on prednisone. To follow-up with primary front office clerk as outpatient for preventive measures. Continue tapering dose of prednisone over the next 4 weeks. Time Spent with Patient Time attestation: Total time spent providing and/or coordinating discharge services: Discharge coordination time: Greater than 30 minutes Quality: Stroke Does the patient have a stroke diagnosis?: No Physical Exam Vital Signs: Vital Signs: Last Vital Signs Temp 98 F 12/12/21 10:51 Pulse 85 12/12/21 10:51 Resp 18 12/12/21 10:51 BP 144/67 H 12/12/21 10:51 Pulse Ox 95 12/12/21 10:51 BMI result Body Mass Index 26.9 Const: Other: Constitutional : Alert, oriented, not in distress Neck : Normal inspection, Supple, mouth ulcers improved Cardiovascular : RRR, S1 S2, no lower extremity edema Respiratory : Good bilateral air entry, no crackles, wheezes or rhonchi Gastrointestinal: soft, lax, Normal bowel sounds, Non tender Skin : Warm, Dry , erythema in both upper wrists and right lower extremity improved significantly with no tenderness or warmth Neurological : Alert & oriented x3, No focal deficit DS: Data Data Completed and Pending Labs on day of discharge: Laboratory Results - last 24 hr 12/11/21 12/11/21 12/11/21 12:32 18:21 22:06 WBC RBC Hgb Hct MCV MCH MCHC RDW Plt Count MPV Absolute Nucleated RBC Nucleated RBC % (auto) Sodium Potassium Chloride Carbon Dioxide Anion Gap BUN Creatinine Estim Creat Clear Calc Estimated GFR POC Glucose 202 H 446 H* 432 H* Fasting Glucose Calcium 12/12/21 12/12/21 12/12/21 01:00 05:17 05:17 WBC 18.2 H RBC 3.66 L Hgb 10.6 L Hct 31.8 L MCV 86.9 MCH 29.0 MCHC 33.3 RDW 13.8 Plt Count 626 H MPV 8.8 L Absolute Nucleated RBC 0.000 Nucleated RBC % (auto) 0.0 Sodium 135 Potassium 4.4 Chloride 98 Carbon Dioxide 28 Anion Gap 13 BUN 14 D Creatinine 0.72 Estim Creat Clear Calc 70.6 Estimated GFR > 60 POC Glucose 265 H Fasting Glucose 229 H Calcium 9.4 D 12/12/21 07:22 WBC RBC Hgb Hct MCV MCH MCHC RDW Plt Count MPV Absolute Nucleated RBC Nucleated RBC % (auto) Sodium Potassium Chloride Carbon Dioxide Anion Gap BUN Creatinine Estim Creat Clear Calc Estimated GFR POC Glucose 227 H Fasting Glucose Calcium Preliminary micro results at discharge 12/11/21 01:26 Blood Culture - Preliminary Blood - Venous No growth after 24 hours. 12/11/21 01:26 Blood Culture - Preliminary Blood - Venous No growth after 24 hours. Discharge Plan Discharge Patient Disposition: Home, Self-Care Discharge Diagnosis: Behcet's disease flare up Referrals: Gloria Villarreal MD [Primary Care Provider] - 1 Week Discharge Medications: New prednisone 10 mg tablet See Taper mg PO DAILY Qty: 55 0RF Taper: Prednisone 40 mg daily for 5 Days and 0 Hour 30 mg daily for 5 Days and 0 Hour 20 mg daily for 5 Days and 0 Hour 10 mg daily for 5 Days and 0 Hour 5 mg daily for 5 Days Rx Instructions: 40 mg for 5 days 30 mg for 5 days 20 mg for 5 days 10 mg for 5 days 5 mg for 5 days Continued (DME) blood-glucose meter [OneTouch Verio Flex Start] Kit See Rx Instructions .ROUTE .MEDSUPPLY Qty: 1 0RF Rx Instructions: As directed (DME) pen needle, diabetic 32 gauge x 5/32 needle See Rx Instructions ea subcut .MEDSUPPLY Qty: 450 11RF Rx Instructions: 4x daily atorvastatin 20 mg tablet 20 mg PO DAILY 30 Days Qty: 90 1RF (DME) OneTouch Verio test strips Strip See Rx Instructions ea Not Applicable QID Qty: 100 11RF Rx Instructions: As directed 3x daily. lorazepam 1 mg tablet 1 mg PO DAILY PRN (Reason: anxiety) 30 Days Qty: 30 2RF Lantus Solostar U-100 Insulin 100 unit/mL (3 mL) insulin pen 13 unit subcut QPM 90 Days Qty: 11.7 1RF fluticasone propionate [Flonase Allergy Relief] 50 mcg/actuation spray,suspension 2 spray intranasal DAILY Qty: 16 3RF Rx Instructions: administer into each nostril multivitamin Tablet 1 tab PO DAILY 0RF omega-3 fatty acids [Fish Oil Concentrate] 1,000 mg capsule 1,000 mg PO DAILY 0RF aspirin [Adult Aspirin Regimen] 81 mg tablet,delayed release (DR/EC) 81 mg PO DAILY 0RF Cimzia 400 mg/2 mL (200 mg/mL x 2) syringe kit 200 mg subcut Q4W 0RF omeprazole 40 mg capsule,delayed release(DR/EC) 40 mg PO DAILY 0RF Label Comments: 01/2021 taper to prn biotin 10,000 mcg tablet,disintegrating 10,000 mcg PO DAILY 0RF (DME) blood-glucose meter Misc See Rx Instructions ea .ROUTE DIRECTED Qty: 1 0RF Rx Instructions: As directed cholecalciferol (vitamin D3) 10 mcg (400 unit) capsule 20 mcg PO DAILY 0RF insulin lispro [Humalog KwikPen Insulin] 100 unit/mL insulin pen 2 - 6 unit .ROUTE TID Qty: 15 1RF Rx Instructions: 2 - 6 units 3 times a day; lisinopril 2.5 mg tablet 2.5 mg PO DAILY Qty: 30 6RF Discontinued clindamycin HCl 150 mg capsule 1 cap PO Q6H 0RF Discharge Orders: Discharge Order (Routine); Ordered 12/12/21 Ordered By: Nakul Plascencia Diet: advance to usual diet Activity on Discharge: As tolerated Stand Alone Forms: Patient Portal Discharge page Care Plan Goals: Read below Health Concerns: Read below Plan of Treatment: Read below Assessment: You were admitted to the hospital for evaluation of upper and lower extremity skin lesions associated with mouth ulcers. Believed to be a result of Behcet's disease exacerbation. Responded well to treatment with steroids. continue prednisone tapering dose as prescribed To follow-up with your front office clerk as outpatient for preventive measures Increase your Lantus insulin to 20 units at bedtime while on prednisone and continue mealtime insulin protocol Discharge Date/Time: 12/12/21 14:30
[2021-12-12 11:01] LABS: Glucose, Whole Blood 315 mg/dL (60-115)
--- NOTE | 2021-12-12 12:25 | MHC.CM.PN ---
PT MEDICALLY CLEARED FOR D/C HOME SELF CARE, NO HOME SERVICES ORDERED AND PT DENIES NEED, PT REPORTS SHE IS MUCH BETTER AND HAS BEEN VERY HAPPY W/THE CARE SHE HAS RECEIVED WHILE INPT, PT REPORTS SHE WILL NOW COME HERE IF NEEDING ED. PT'S DTR WILL BE HERE BETWEEN 1:30-2PM FOR TRANSPORT.
== END 2021-12-12 14:30 | disposition home or self-care (01) | DRG 546 ==
LOC: HO.ED 12-11 01:05 → HO.EDOVER 12-11 02:14 → HO.S3 12-12 02:16
PROVIDERS: Internal Medicine; Admitting Provider Internal Medicine; Emergency Provider Student in an Organized Health Care Education/Training Program; PCP Internal Medicine; Visit Provider Student in an Organized Health Care Education/Training Program
DX: M35.2 Behcet's disease (principal); L03.116 Cellulitis of left lower limb; E08.9 Diabetes mellitus due to underlying condition without complications; Z20.822 Contact with and (suspected) exposure to COVID-19; F17.210 Nicotine dependence, cigarettes, uncomplicated; C67.9 Malignant neoplasm of bladder, unspecified; G47.33 Obstructive sleep apnea (adult) (pediatric); E78.5 Hyperlipidemia, unspecified; Z99.89 Dependence on other enabling machines and devices; Z71.6 Tobacco abuse counseling; Z88.0 Allergy status to penicillin; Z79.4 Long term (current) use of insulin; Z79.51 Long term (current) use of inhaled steroids; Z79.52 Long term (current) use of systemic steroids; Z79.82 Long term (current) use of aspirin; Z79.899 Other long term (current) drug therapy
CPT/HCPCS: 36415; 71045; 73590; 80048; 80053; 82947; 83605; 85025; 85027; 85652; 86140; 87040; 87635; 93005; 93970; 99285; J0692; J0696; J1170; J1650; J2270; J2920; J3370

== ENCOUNTER → 2021-12-14 08:25 | Outpatient (BNVA) | payer MEDICARE, OTHER, SELFPAY | PROVIDERS: PCP Internal Medicine; Visit Provider Nurse Practitioner Gerontology | DX: E13.65 Other specified diabetes mellitus with hyperglycemia (principal); S36.209S Unspecified injury of unspecified part of pancreas, sequela; I10 Essential (primary) hypertension; E55.9 Vitamin D deficiency, unspecified; Z79.4 Long term (current) use of insulin; Z79.899 Other long term (current) drug therapy | CPT/HCPCS: 82947; 99212 ==

== ENCOUNTER 2022-01-15 08:01 | Outpatient (REF) | payer MEDICARE, OTHER, SELFPAY ==
[2022-01-15 11:38] LABS: MANUAL DIFF FLAG NO
[2022-01-15 12:00] LABS: Basophils Percent Auto 0.4 % (0-2); Eosinophils Absolute Auto 0.3 X10*3/uL (0.0-0.4); Eosinophils Percent Auto 3.7 % (0-4); Hematocrit 40.3 % (37.0-47.0); Hemoglobin 13.3 g/dl (12.0-16.0); Imm Gran Abs Auto 0.02 X10*3/uL (0.00-0.03); Imm Gran Pct Auto 0.2 % (0.0-0.4); Immature Retic Fraction 4.1 % (3.0-15.9); Lymphocytes Percent Auto 47.6 % (20-40); Mean Corpuscular Hemoglobin 29.4 pg (27.0-33.0); Mean Corpuscular Volume 89.2 fL (80.0-98.0); Mean Platelet Volume 9.6 fL (9.4-12.3); Monocytes Absolute Auto 0.8 X10*3/uL (0.1-1.2); Monocytes Percent Auto 9.4 % (2-11); Neutrophils Absolute Auto 3.2 x10*3/uL (2.0-8.3); Neutrophils Percent Auto 38.7 % (45-73); Platelet Count 433 X10*3/uL (160-400); Red Blood Count 4.52 X10*6/uL (4.20-5.50); Red Cell Distribution Width 16.1 % (11.0-16.0); Retic HGB Equivalent 34.2 pg (30.0-35.0); Reticulocyte Percent 1.2 % (0.5-1.8); Reticulocytes Absolute 0.053 X10*6/uL (0.026-0.095)
[2022-01-15 12:03] LABS: White Blood Count 8.4 X10*3/uL (4.8-10.8)
[2022-01-15 12:23] LABS: Ferritin 90 ng/mL (10-250)
[2022-01-15 12:25] LABS: Alanine Aminotransferase 17 U/L (0-31); Albumin Level 4.2 g/dL (3.5-5.0); Alkaline Phosphatase 88 U/L (39-117); Anion Gap 13 (12-20); Aspartate Amino Transferase 19 U/L (5-31); Bilirubin Total 0.4 mg/dL (0.0-1.0); Blood Urea Nitrogen 15 mg/dL (9-16); Calcium 9.7 mg/dL (8.4-10.2); Carbon Dioxide 28 mmol/L (22-29); Chloride 104 mmol/L (96-108); Cholesterol 162 mg/dL; Estimated Glomerular Filt Rate > 60; Glucose Fasting 113 mg/dL (60-99); HDL Cholesterol 56 mg/dL; Iron 72 mcg/dL (30-160); LDL Cholesterol Calculated 93 mg/dl; Percent Iron Saturation 21 % (15-50); Potassium 4.4 mmol/L (3.3-5.1); Sodium 141 mmol/L (135-145); Total Iron Binding Capacity 344 mcg/dL (228-428); Total Protein 7.1 g/dL (6.5-8.0); Triglycerides 65 mg/dL; Unsaturated Iron Binding 272 ug/dL
[2022-01-15 12:26] LABS: Erythrocyte Sedimentation Rate 5 MM/HR (0-20)
[2022-01-15 12:27] LABS: Vitamin D 25-OH Total 40.2 ng/mL (>30)
[2022-01-15 12:31] LABS: Creatinine Urine 82.03 mg/dL; Microalbum/Creatinine Ratio Ur 9.7 ug/mg cr
[2022-01-15 12:45] LABS: Folate 19.1 ng/mL (> or = 4.0); Vitamin B12 458 pg/mL (200-900)
[2022-01-17 05:25] LABS: LDL Cholesterol Direct 89 mg/dL (<100)
== END 2022-01-15 08:02 | disposition home or self-care (01) ==
LOC: HO.HMGCLDS 08:01
PROVIDERS: Absent Provider Internal Medicine; PCP Internal Medicine; Referring Provider Internal Medicine Rheumatology; Visit Provider Nurse Practitioner Gerontology
DX: D64.9 Anemia, unspecified (principal); M35.2 Behcet's disease; E13.9 Other specified diabetes mellitus without complications; S36.209S Unspecified injury of unspecified part of pancreas, sequela; E55.9 Vitamin D deficiency, unspecified; E13.65 Other specified diabetes mellitus with hyperglycemia
CPT/HCPCS: 36415; 80053; 80061; 82043; 82306; 82607; 82728; 82746; 83540; 83721; 85025; 85045; 85652

== ENCOUNTER → 2022-01-28 08:52 | Outpatient (BNVA) | payer MEDICARE, OTHER, SELFPAY | PROVIDERS: PCP Internal Medicine; Visit Provider Nurse Practitioner Gerontology | DX: E13.65 Other specified diabetes mellitus with hyperglycemia (principal); S36.209S Unspecified injury of unspecified part of pancreas, sequela; E78.5 Hyperlipidemia, unspecified; E55.9 Vitamin D deficiency, unspecified; I10 Essential (primary) hypertension; R06.2 Wheezing; Z79.4 Long term (current) use of insulin | CPT/HCPCS: 82947; 99212 ==

== ENCOUNTER 2022-02-06 16:01 | Outpatient (REF) | payer MEDICARE, OTHER, SELFPAY ==
--- NOTE | ~2022-02-06 | XR_ITS ---
EXAMINATION: XR LUMBAR SPINE XR SACRUM XR KNEE, LEFT CLINICAL INFORMATION: Low back pain and left knee pain. COMPARISON: None TECHNIQUE: Lumbar spine 2 views. Sacrum and coccyx 3 views. Left knee 3 views. FINDINGS: LUMBAR SPINE: There is normal lumbar lordosis. The vertebral heights and alignment is normal. There is loss of L4-L5 and L5-S1 disc height. No visible acute fracture, dislocation or lytic process seen. The SI joints are symmetrical and normal. SACRUM AND COCCYX: The SI joints are symmetrical and normal. No visible acute fracture, dislocation or subluxation seen. There is acute angulation of the sacrococcygeal junction without soft tissue swelling likely old injury. LEFT KNEE: The tricompartment joint space is mildly reduced. No visible fracture, dislocation or loose body seen. There is minimal suprapatellar joint effusion. No soft tissue swelling seen. XR/XR lumbar spine 2-3V IMPRESSION: Mild degenerative disc changes L4-L5 and L5-S1 disc levels; otherwise unremarkable lumbar spine. Unremarkable sacrum and coccyx exam. Mild degenerative changes tricompartment left knee. No acute fracture or dislocation seen.
--- NOTE | ~2022-02-06 | XR_ITS ---
EXAMINATION: XR LUMBAR SPINE XR SACRUM XR KNEE, LEFT CLINICAL INFORMATION: Low back pain and left knee pain. COMPARISON: None TECHNIQUE: Lumbar spine 2 views. Sacrum and coccyx 3 views. Left knee 3 views. FINDINGS: LUMBAR SPINE: There is normal lumbar lordosis. The vertebral heights and alignment is normal. There is loss of L4-L5 and L5-S1 disc height. No visible acute fracture, dislocation or lytic process seen. The SI joints are symmetrical and normal. SACRUM AND COCCYX: The SI joints are symmetrical and normal. No visible acute fracture, dislocation or subluxation seen. There is acute angulation of the sacrococcygeal junction without soft tissue swelling likely old injury. LEFT KNEE: The tricompartment joint space is mildly reduced. No visible fracture, dislocation or loose body seen. There is minimal suprapatellar joint effusion. No soft tissue swelling seen. XR/XR knee LT 3V IMPRESSION: Mild degenerative disc changes L4-L5 and L5-S1 disc levels; otherwise unremarkable lumbar spine. Unremarkable sacrum and coccyx exam. Mild degenerative changes tricompartment left knee. No acute fracture or dislocation seen.
--- NOTE | ~2022-02-06 | XR_ITS ---
EXAMINATION: XR LUMBAR SPINE XR SACRUM XR KNEE, LEFT CLINICAL INFORMATION: Low back pain and left knee pain. COMPARISON: None TECHNIQUE: Lumbar spine 2 views. Sacrum and coccyx 3 views. Left knee 3 views. FINDINGS: LUMBAR SPINE: There is normal lumbar lordosis. The vertebral heights and alignment is normal. There is loss of L4-L5 and L5-S1 disc height. No visible acute fracture, dislocation or lytic process seen. The SI joints are symmetrical and normal. SACRUM AND COCCYX: The SI joints are symmetrical and normal. No visible acute fracture, dislocation or subluxation seen. There is acute angulation of the sacrococcygeal junction without soft tissue swelling likely old injury. LEFT KNEE: The tricompartment joint space is mildly reduced. No visible fracture, dislocation or loose body seen. There is minimal suprapatellar joint effusion. No soft tissue swelling seen. XR/XR sacrum coccyx min 2V IMPRESSION: Mild degenerative disc changes L4-L5 and L5-S1 disc levels; otherwise unremarkable lumbar spine. Unremarkable sacrum and coccyx exam. Mild degenerative changes tricompartment left knee. No acute fracture or dislocation seen.
== END 2022-02-06 16:02 | disposition home or self-care (01) ==
LOC: HO.HMGCX 16:01
PROVIDERS: PCP Internal Medicine; Visit Provider Nurse Practitioner Family
DX: M25.562 Pain in left knee (principal); M79.605 Pain in left leg; M54.50 Low back pain, unspecified
CPT/HCPCS: 72100; 72220; 73562

== ENCOUNTER 2022-02-14 16:20 | Outpatient (REF) | payer MEDICARE, OTHER, SELFPAY ==
--- NOTE | ~2022-02-14 | XR_ITS ---
EXAMINATION: XR HIP, LEFT CLINICAL INFORMATION: Pain with no known injury. COMPARISON: None TECHNIQUE: Two views of the left hip. FINDINGS: No fracture or dislocation. The left hip is well aligned. Joint space is maintained. The visualized left hemipelvis is intact. Normal bowel gas pattern. XR/XR hip LT min 2V IMPRESSION: Unremarkable left hip radiographs.
--- NOTE | ~2022-02-14 | US_ITS ---
EXAMINATION: US VENOUS ULTRASOUND WITH DOPPLER LOWER EXTREMITY, LEFT CLINICAL INFORMATION: Left leg pain and swelling, rule out deep venous thrombosis. COMPARISON: None TECHNIQUE: Ultrasound of the deep veins is performed from the hip to the calf with compression sonography and color and pulse Doppler assessment. Spectral analysis with color-flow imaging is performed. FINDINGS: There is normal venous compression and respiratory variation and augmented flow. The visualized common femoral vein, superficial femoral vein, profunda femoral vein, popliteal vein, and the trifurcation region shows no evidence of deep venous thrombosis. No left popliteal cyst. The subcutaneous soft tissues are unremarkable. If the patient's symptoms persist, followup ultrasound in 5 days 7 days might be of value to exclude proximal propagation from a non-visualized calf vein. US/US venous duplex LE IMPRESSION: No evidence for deep venous thrombosis in the visualized veins of the left lower extremity.
== END 2022-02-14 16:21 | disposition home or self-care (01) ==
LOC: HO.US 16:20
PROVIDERS: PCP Internal Medicine; Visit Provider Nurse Practitioner Family
DX: I82.402 Acute embolism and thrombosis of unspecified deep veins of left lower extremity (principal); M25.552 Pain in left hip
CPT/HCPCS: 73502; 93971

== ENCOUNTER 2022-02-22 17:02 | Emergency (ER) | payer MEDICARE, OTHER, SELFPAY ==
[2022-02-22 17:40] VITALS: BP 151/91; PULSE 77; RESP 20; TEMP 36.7; O2SAT 98; BMI 27.4
[2022-02-22 17:54] LABS: Hematocrit 38.8 % (37.0-47.0); Hemoglobin 13.2 g/dl (12.0-16.0); Mean Corpuscular Hemoglobin 29.3 pg (27.0-33.0); Mean Corpuscular Volume 86.2 fL (80.0-98.0); Mean Platelet Volume 8.8 fL (9.4-12.3); Platelet Count 424 X10*3/uL (160-400); Red Cell Distribution Width 15.9 % (11.0-16.0); White Blood Count 16.6 X10*3/uL (4.8-10.8)
[2022-02-22 18:16] LABS: Alanine Aminotransferase 20 U/L (0-31); Albumin Level 4.2 g/dL (3.5-5.0); Alkaline Phosphatase 79 U/L (39-117); Anion Gap 12 (12-20); Aspartate Amino Transferase 18 U/L (5-31); Bilirubin Total 0.4 mg/dL (0.0-1.0); Blood Urea Nitrogen 10 mg/dL (9-16); Calcium 9.7 mg/dL (8.4-10.2); Carbon Dioxide 27 mmol/L (22-29); Chloride 102 mmol/L (96-108); Creatinine Clr Calc Pharmacy 59.3; Estimated Glomerular Filt Rate > 60; Glucose Random 199 mg/dL (60-115); Potassium 4.3 mmol/L (3.3-5.1); Sodium 137 mmol/L (135-145); Total Protein 7.2 g/dL (6.5-8.0)
--- NOTE | 2022-02-22 18:40 | ED_ITS ---
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 Patient tells me she has been evaluated multiple times by her PCP and specialist such as rheumatology and they do not know what is wrong with her. They told her that if this continues she needs to go to an emergency department so that is why she is here today. Patient tells me she has been taking Tylenol and ibuprofen as as well as steroids and has also had antibiotics at 1 point. Patient denies chest pain, shortness of breath, fevers, chills, nausea, vomiting, weight loss, fatigue. Related Data Home Medications Medication Instructions Recorded Confirmed aspirin 81 mg tablet,delayed 81 mg PO DAILY 07/18/20 01/24/22 release (Adult Aspirin Regimen) certolizumab pegol (Cimzia) 200 mg SUBCUT Q4W ea 07/18/20 01/24/22 multivitamin 1 tab PO DAILY 07/18/20 01/28/22 omega-3 fatty acids 1,000 mg 1,000 mg PO DAILY 07/18/20 01/28/22 capsule (Fish Oil Concentrate) biotin 10,000 mcg disintegrating 10,000 mcg PO DAILY 08/24/20 01/24/22 tablet blood-glucose meter #1 ea 08/24/20 01/24/22 omeprazole 40 mg capsule,delayed 40 mg PO DAILY cap 01/24/21 01/28/22 release cholecalciferol (vitamin D3) 10 2 PO DAILY 12/14/21 01/28/22 mcg (400 unit) tablet (Vitamin D3) blood-glucose sensor (Dexcom G6 12/24/21 01/28/22 Sensor) blood-glucose transmitter (Dexcom 12/24/21 01/28/22 G5 Transmitter) insulin glargine 100 unit/mL (3 13 unit SUBCUT QPM ml 01/28/22 01/28/22 mL) subcutaneous pen (Lantus Solostar U-100 Insulin) Previous Rx's Medication Instructions Recorded blood-glucose meter (OneTouch #1 ea 07/18/20 Verio Flex Start) pen needle, diabetic 32 gauge x #450 ea 05/03/21 atorvastatin 20 mg tablet 20 mg PO DAILY 30 Days #90 tab 07/17/21 blood sugar diagnostic (OneTouch #100 ea 09/18/21 Verio test strips) lorazepam 1 mg tablet 1 mg PO DAILY PRN 30 Days #30 tab 10/17/21 fluticasone propionate 50 2 spray INTRANASAL DAILY #16 g 11/09/21 mcg/actuation nasal spray,suspension (Flonase Allergy Relief) lisinopril 5 mg tablet 5 mg PO DAILY #30 tab 12/14/21 meloxicam 7.5 mg tablet 7.5 mg PO DAILY #14 tab 01/24/22 albuterol sulfate 90 mcg/actuation 1 inh INHALATION QID PRN #6.7 g 01/28/22 aerosol inhaler insulin lispro 100 unit/mL 5 - 12 unit (0.05 - 0.12 mL) 01/28/22 subcutaneous pen (Humalog KwikPen .ROUTE TID #15 ml (U-100) Insulin) sulfamethoxazole 800 1 tab PO BID 7 Days #14 tab 01/28/22 mg-trimethoprim 160 mg tablet (Bactrim DS) tizanidine 2 mg tablet 2 mg PO Q12H PRN #10 tab 01/30/22 lidocaine 4 % topical patch 1 patch TOPICAL DAILY PRN #15 ea 02/06/22 (Aspercreme (lidocaine)) methylprednisolone 4 mg tablets in See Rx Instructions PO PER PKG DIR 02/13/22 a dose pack (Medrol (Cj)) #21 ea morphine 15 mg immediate release 15 mg PO Q8H PRN #8 tab 02/22/22 tablet prednisone 20 mg tablet 40 mg PO DAILY 5 Days #10 tab 02/22/22 Allergies Allergy/AdvReac Type Severity Reaction Status Date / Time amoxicillin [AMOXICILLIN] Allergy Unknown HIVES Verified 01/28/22 16:31 azathioprine [From IMURAN] Allergy Unknown ABNORMAL Verified 01/28/22 16:31 LABS,HIVES etanercept [From ENBREL] Allergy Unknown HIVES Verified 01/28/22 16:31 infliximab [From REMICADE] Allergy Unknown RASH Verified 01/28/22 16:31 levofloxacin Allergy Unknown GI Upset Verified 01/28/22 16:31 nickel [NICKEL] Allergy Unknown UNKNOWN Verified 01/28/22 16:31 penicillin V Allergy Unknown hives Verified 01/28/22 16:31 Penicillins [PCN] Allergy Unknown HIVES Verified 01/28/22 16:31 Review of Systems Review of Systems: Constitutional : No Weight loss, No Fever, No Chills, No Fatigue, No Malaise ENT/Mouth : No sore throat, No Rhinorrhea Eyes: No Eye Pain, No Swelling, No Redness Cardiovascular : No Chest Pain, No SOB, No Dyspnea on Exertion, No Orthopnea, No Edema, No Palpitations Respiratory : No Cough, No Sputum, No Wheezing Gastrointestinal : No Nausea, No Vomiting, No Diarrhea, No Constipation, No abdominal Pain, No Hematochezia, No Melena Genitourinary : No Dysuria, No Urinary Frequency, No Hematuria, Musculoskeletal : No joint pain, No Myalgias, No Joint Swelling Skin : No Skin Lesions, No rash Neuro : No Weakness, No Numbness, No Dizziness, No Headache Psych : No Anxiety/Panic, No Depression All other systems reviewed and are negative Yes all other systems are reviewed and are negative PMFSH Past Medical History Attestation statement: The following information was validated with the patient. 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 Dysuria Essential hypertension Fractured coccyx GERD (gastroesophageal reflux disease) History of DVT (deep vein thrombosis) Hyperlipidemia LDL goal <100 Malignant neoplasm of pancreas, unspecified Non-toxic multinodular goiter Obstructive sleep apnea Osteoporosis Pulmonary nodule Right tibial fracture Thyroid nodule Tobacco abuse Type 2 diabetes mellitus with hyperglycemia Uncontrolled diabetes mellitus Vitamin D insufficiency Surgical History H/O splenectomy History of cholecystectomy History of colonoscopy History of open reduction and internal fixation (ORIF) procedure History of pancreatic surgery History of surgery History of surgery History of varicose veins of lower extremity Family History Family History Father Diabetes Advanced cardiac disease Mother Asthma Osteoporosis Brain cancer Brother Lung cancer Sister Breast cancer History of Coumadin therapy Brother Colostomy in place Daughter No problems noted. Son No problems noted. Social History Social History Household Members: None Housing: House Do you presently have visiting nurse or other home services: No Alcohol intake: never Patient Tobacco Use Status: Current someday Tobacco user Tobacco use type: Cigarette Cigarette Packs Per Day: 0.5 e-Cigarette/Vaping Use: Never Used Second Hand Smoke Exposure: No Advance Directives: Yes Advance Directives on File: Yes Advance Directives Date on File: 12/11/21 service: No Current occupational status: retired Cognitive needs: No Hearing needs: No Vision needs: Yes Physical Exam ED Vital Signs: Vital Signs - 24 hr 02/22/22 17:40 02/22/22 18:59 02/22/22 19:03 Temperature 98.0 F 97.7 F 97.8 F Pulse Rate 77 80 60 Respiratory Rate 20 16 16 Blood Pressure 151/91 H 140/85 H 111/69 Pulse Oximetry 98 96 94 02/22/22 22:10 Temperature 97.5 F Pulse Rate 64 Respiratory Rate 16 Blood Pressure 147/83 H Pulse Oximetry 97 BMI result Body Mass Index 27.4 VSS Appearance: Alert.? Oriented X3.? No acute distress.? Head: Normocephalic, atraumatic, no step-offs or deformities Eyes: Pupils equal, round and reactive to light.? ENT: Pharynx normal.? Neck: Normal inspection.? Neck supple.? CVS: Normal heart rate and rhythm.? Pulses normal.? Respiratory: No respiratory distress.? Breath sounds normal.? Abdomen: Soft and nontender.? Skin: Skin warm and dry.? Normal skin color.? Normal skin turgor.? Extremities: No lower extremity edema.? No calf ttp, neagitve chalo b/l. 5/5 strength to bilateral upper and lower extremities Back: No midline tenderness, no C-spine tenderness, full range of motion, no CVA tenderness bilaterally Neuro: Oriented X 3.? No motor deficit.? No sensory deficit. CN 2-12 intact . Normal hand key account representative bilaterally. Normal steady gait with coordination intact. Negative Romberg and no pronator drift Course Course Course Narrative: This case was discussed with my attending who went and obtained history and did a physical exam on this patient and he tells me that this is likely from her Bechets disease. Patient has been experiencing these symptoms unchanged for the past 2 months, is followed by a outpatient providers as well as specialist. He recommends that patient be put on a short dose of steroids, follow-up with outpatient providers and specialist as well as medication for pain control. Reevaluation(s) Reevaluation #1: Patient is noted to have an elevated white blood cell count however she has been on steroids for a while. Patient's platelets also noted to be elevated however this appears chronic in nature. No acute electrolyte abnormalities requiring intervention. CPK normal. ESR and CRP within normal limits. Time: 22:27 Reevaluation #2: Patient tells me she is feeling much better after morphine, fluids. Patient ambulating with a steady gait. She appears much better. Time: 22:27 Reevaluation #3: Plan at this time is to discharge patient home with a short course of steroids, morphine p.o.. Advised her to follow-up with specialist and PCP. Comfortable discharge home. Patient tells me she is feeling much better than she did when she arrived. Time: 22:29 Medical Decision Making [facility] Narrative Medical decision making narrative: 1841 67-year-old male presents to the emergency department atraumatic left-sided body pain x2 months worsening. Physical examination benign I suspect this is likely from patient's chronic condition as this has been going on for 2 months. Patient has been seen by multiple specialists as well as her PCP who tell her that she has Bechets disease in their not able to figure out what is causing this pain. Based off patient history and physical examination I do not suspect traumatic injury as patient does not report any trauma, there is no focal neuro deficits, unlikely that this is a stroke, ICH. Patient does not complain of chest pain or shortness of breath unlikely PE/DVT. Plan at this time is basic labs. Medical Records Medical records reviewed: Yes I reviewed the patient's medical records. Lab Data Lab results reviewed: Yes I reviewed the patient's lab results. Result diagrams: 02/22/22 17:49 02/22/22 17:49 Labs: Lab Results 02/22/22 02/22/22 02/22/22 Range/Units 17:49 17:49 17:49 WBC 16.6 H (4.8-10.8) X10*3/uL RBC 4.50 (4.20-5.50) X10*6/uL Hgb 13.2 (12.0-16.0) g/dl Hct 38.8 (37.0-47.0) % MCV 86.2 (80.0-98.0) fL MCH 29.3 (27.0-33.0) pg MCHC 34.0 (31.0-35.0) g/dl RDW 15.9 (11.0-16.0) % Plt Count 424 H (160-400) X10*3/uL MPV 8.8 L (9.4-12.3) fL Absolute Nucleated RBC 0.000 (0.0-0.012) X10*3/uL Nucleated RBC % (auto) 0.0 (0.0-0.2) /100WBC ESR 3 (0-20) MM/HR Sodium 137 (135-145) mmol/L Potassium 4.3 (3.3-5.1) mmol/L Chloride 102 (96-108) mmol/L Carbon Dioxide 27 (22-29) mmol/L Anion Gap 12 (12-20) BUN 10 (9-16) mg/dL Creatinine 0.82 (0.5-1.4) mg/dL Estim Creat Clear Calc 59.3 Estimated GFR > 60 Random Glucose 199 H (60-115) mg/dL Calcium 9.7 (8.4-10.2) mg/dL Magnesium 2.2 (1.6-2.6) mg/dL Total Bilirubin 0.4 (0.0-1.0) mg/dL AST 18 (5-31) U/L ALT 20 (0-31) U/L Alkaline Phosphatase 79 (39-117) U/L Total Creatine Kinase 77 (26-140) U/L C-Reactive Protein 0.39 (< or = 0.50) mg/dL Total Protein 7.2 (6.5-8.0) g/dL Albumin 4.2 (3.5-5.0) g/dL Critical Care Time Critical Care Time Critical Care Time: No Discharge Plan Discharge Clinical Impression: Behcet's disease Patient Disposition: Home, Self-Care Instructions: Behcet Syndrome (ED) Additional Instructions: Take your medications as prescribed. If you were prescribed antibiotics today, it is important that you take your medication to their entirety, do not skip any doses, do not finish them early. Follow-up with your primary care provider this week. Please follow-up with Hematology/rheumatology as soon as possible. Return to the emergency department with new or worsening symptoms. Such as fevers, chills, chest pain, shortness of breath, nausea, vomiting, dizziness, headache, vision changes, lethargy In case of emergency call 911 Prescriptions: New prednisone 20 mg tablet 40 mg PO DAILY 5 Days Qty: 10 0RF morphine 15 mg tablet 15 mg PO Q8H PRN (Reason: pain) Qty: 8 0RF Rx Instructions: Patient can partially filled this prescription upon request No Action (DME) blood-glucose meter [OneTouch Verio Flex Start] Kit See Rx Instructions .ROUTE .MEDSUPPLY Qty: 1 0RF Rx Instructions: As directed (DME) pen needle, diabetic 32 gauge x 5/32 needle See Rx Instructions ea subcut .MEDSUPPLY Qty: 450 11RF Rx Instructions: 4x daily atorvastatin 20 mg tablet 20 mg PO DAILY 30 Days Qty: 90 1RF (DME) OneTouch Verio test strips Strip See Rx Instructions ea Not Applicable QID Qty: 100 11RF Rx Instructions: As directed 3x daily. lorazepam 1 mg tablet 1 mg PO DAILY PRN (Reason: anxiety) 30 Days Qty: 30 2RF fluticasone propionate [Flonase Allergy Relief] 50 mcg/actuation spray ,suspension 2 spray intranasal DAILY Qty: 16 3RF Rx Instructions: administer into each nostril (DME) Dexcom G6 Sensor Device See Rx Instructions .Route 0RF Rx Instructions: As directed (DME) Dexcom G5 Transmitter Device See Rx Instructions .Route 0RF Rx Instructions: As directed tizanidine 2 mg tablet 2 mg PO Q12H PRN (Reason: muscle spasticity) Qty: 10 0RF lidocaine [Aspercreme (lidocaine HCl)] 4 % adhesive patch,medicated 1 patch topical DAILY PRN (Reason: pain) Qty: 15 0RF methylprednisolone [Medrol (Cj)] 4 mg tablets,dose pack See Rx Instructions PO PER PKG DIR Qty: 21 0RF Rx Instructions: PO PER PKG DIR multivitamin Tablet 1 tab PO DAILY 0RF omega-3 fatty acids [Fish Oil Concentrate] 1,000 mg capsule 1,000 mg PO DAILY 0RF aspirin [Adult Aspirin Regimen] 81 mg tablet,delayed release (DR/EC) 81 mg PO DAILY 0RF Cimzia 400 mg/2 mL (200 mg/mL x 2) syringe kit 200 mg subcut Q4W 0RF omeprazole 40 mg capsule,delayed release(DR/EC) 40 mg PO DAILY 0RF Label Comments: 01/2021 taper to prn sulfamethoxazole-trimethoprim [Bactrim DS] 800-160 mg tablet 1 tab PO BID 7 Days Qty: 14 0RF albuterol sulfate 90 mcg/actuation HFA aerosol inhaler 1 inh inhalation QID PRN (Reason: shortness of breath or wheezing) Qty: 6.7 1RF meloxicam 7.5 mg tablet 7.5 mg PO DAILY Qty: 14 0RF biotin 10,000 mcg tablet,disintegrating 10,000 mcg PO DAILY 0RF (DME) blood-glucose meter Misc See Rx Instructions ea .ROUTE DIRECTED Qty: 1 0RF Rx Instructions: As directed cholecalciferol (vitamin D3) [Vitamin D3] 10 mcg (400 unit) tablet 2 PO DAILY 0RF lisinopril 5 mg tablet 5 mg PO DAILY Qty: 30 11RF Lantus Solostar U-100 Insulin 100 unit/mL (3 mL) insulin pen 13 unit subcut QPM 0RF insulin lispro [Humalog KwikPen Insulin] 100 unit/mL insulin pen 5 - 12 unit .ROUTE TID Qty: 15 3RF Rx Instructions: 5 - 12 units 3 times a day; Referrals: Po,Gloria Lynn MD [Primary Care Provider] - 2 days
[2022-02-22 18:59] VITALS: BP 140/85; PULSE 80; RESP 16; TEMP 36.5; O2SAT 96
[2022-02-22 19:03] VITALS: BP 111/69; PULSE 60; RESP 16; TEMP 36.6; O2SAT 94
[2022-02-22 19:10] LABS: C Reactive Protein 0.39 mg/dL (< or = 0.50)
[2022-02-22] MEDS: Morphine Sulfate 4 MG/ML CARTRIDGE IVPUSH (19:24)
[2022-02-22 19:34] LABS: Erythrocyte Sedimentation Rate 3 MM/HR (0-20)
[2022-02-22 19:43] LABS: Magnesium 2.2 mg/dL (1.6-2.6)
[2022-02-22 22:10] VITALS: BP 147/83; PULSE 64; RESP 16; TEMP 36.4; O2SAT 97
[2022-02-22] MEDS: Morphine Sulfate 2 MG/ML CARTRIDGE IVPUSH (22:19)
[2022-02-22 22:49] LABS: Appearance Urine CLEAR; Color Urine YELLOW; Glucose Urine UA NEG (NEG); Leukocyte Esterase Urine NEG (NEG); Nitrite Urine NEG (NEG); PH 6.5 (5.0-8.0); UACC Culture Trigger NO; Urine Blood TRACE (NEG); Urine Ketones NEG (NEG); Urine Protein NEG (NEG-TRACE)
[2022-02-22 22:54] LABS: Bacteria Urine 1+ /LPF; RBC Urine 0-2 /HPF (0); Squamous Epithelial Cell Urine 2+ /LPF; WBC Urine 0 /HPF (0-4)
== END 2022-02-22 23:36 | disposition home or self-care (01) ==
PROVIDERS: Physician Assistant; Emergency Provider Internal Medicine; PCP Internal Medicine
DX: M35.2 Behcet's disease (principal); I10 Essential (primary) hypertension; E11.9 Type 2 diabetes mellitus without complications; J44.9 Chronic obstructive pulmonary disease, unspecified; G47.33 Obstructive sleep apnea (adult) (pediatric); Z86.718 Personal history of other venous thrombosis and embolism; Z79.52 Long term (current) use of systemic steroids; Z99.89 Dependence on other enabling machines and devices
CPT/HCPCS: 36415; 80053; 81001; 82550; 83735; 85027; 85652; 86140; 96374; 96376; 99283; 99284; J2270

== ENCOUNTER 2022-02-25 10:18 | Outpatient (REF) | payer MEDICARE, OTHER, SELFPAY ==
--- NOTE | ~2022-02-25 | US_ITS ---
EXAMINATION: US THYROID CLINICAL INFORMATION: Nontoxic multinodular goiter. COMPARISON: US thyroid 02/05/2021 and 02/09/2020. TECHNIQUE: Linear transducer grayscale and color Doppler examination with attention to the region of the thyroid. FINDINGS: SIZE: Measurements of the thyroid lobes and nodules are given in sagittal, anteroposterior and transverse dimensions respectively. Right Thyroid Lobe: 4.5 x 1.7 x 1.6 cm, volume 6.4 mL. Previously 4.7 x 1.7 x 1.5 cm, volume 4.7 mL. Parenchyma: The gland echotexture is homogeneous. Thyroid vascularity is normal. Left Thyroid Lobe: 4.4 x 1.7 x 1.9 cm, volume 7.4 mL. Previously 3.7 x 1.7 x 1.5 cm, volume 4.8 mL. Parenchyma: The gland echotexture is homogeneous. Thyroid vascularity is normal. Isthmus: 0.4 cm in maximum AP dimension. Previously 0.5 cm. Estimated total number of nodules greater than or equal to 1 cm: 3. Manager Primary nodules are described as follows: 1. Location: Right superior. Size: 1.0 x 0.7 x 1.0 cm, volume 0.39 mL. Previously: 1.1 x 0.8 x 0.8 cm, volume 0.35 mL. Nodule characteristics: Composition: Mixed cystic and solid (1). Echogenicity: Cannot be determined (1). Shape: Not taller than wide (0). Margins: Smooth (0). Echogenic Foci: Punctate echogenic foci (3). ACR TI-RADS total points: 5 Previous: 5 ACR TI-RADS category: 4 Previous: 4 Significant change in size (>/= 20% in 2 dimensions and minimal increase of 2 mm or 50% or greater increase in volume): Change in features: Change in ACR TI-RADS risk category: 2. Location: Left superior/mid. Size: 1.1 x 0.6 x 1.0 cm, volume 0.31 mL. Previously: 0.9 x 0.6 x 0.9 cm, volume 0.22 mL. Nodule characteristics: Composition: Spongiform (0). Echogenicity: Anechoic (0). Shape: Not taller than wide (0). Margins: Smooth (0). Echogenic Foci: None (0). ACR TI-RADS total points: 0 Previous: 0 ACR TI-RADS category: 1 Previous: 1 Significant change in size (>/= 20% in 2 dimensions and minimal increase of 2 mm or 50% or greater increase in volume): Change in features: Change in ACR TI-RADS risk category: 3. Location: Left mid. Size: 1.5 x 0.9 x 0.8 cm, volume 0.79 mL. Previously: 1.3 x 0.8 x 1.1 cm, volume 0.61 mL. Nodule characteristics: Composition: Solid/almost completely solid (2). Echogenicity: Isoechoic (1). Shape: Not taller than wide (0). Margins: Smooth (0). Echogenic Foci: None (0). ACR TI-RADS total points: 3 Previous: 0 ACR TI-RADS category: 3 Previous: 1 Significant change in size (>/= 20% in 2 dimensions and minimal increase of 2 mm or 50% or greater increase in volume): Change in features: Change in ACR TI-RADS risk category: 4. Location: Left inferior. Size: 0.4 x 0.4 x 0.4 cm, volume 0.03 mL. Previously: 0.3 x 0.3 x 0.3 cm, volume 0.02 mL. Nodule characteristics: Composition: Cystic(0). ACR TI-RADS total points: 0 Previous: 0 ACR TI-RADS category: 1 Previous: 1 Significant change in size (>/= 20% in 2 dimensions and minimal increase of 2 mm or 50% or greater increase in volume): Change in features: Change in ACR TI-RADS risk category: NODES: There is a small left level 4 cervical lymph node. US/US thyroid IMPRESSION: Stable bilateral thyroid nodules. ACR TI-RADS RECOMMENDATION REFERENCE: Ultrasound-guided fine-needle aspiration, followup ultrasound, no further follow up. * TR1 (0 point) and TR 2 (2 points): No FNA or follow up * TR3 (3 points): FNA if more than or equal to 2.5 cm in maximum dimension, followup ultrasound in 1, 3 and 5 years if 1.5 to 2.4 cm in maximum dimension. * TR4 (4-6 points): FNA if more than or equal to 1.5 cm in maximum dimension, followup ultrasound in 1, 2, 3 and 5 years if 1 to 1.4 cm in maximum dimension. * TR5 (more than or equal to 7 points): FNA if more than or equal to 1 cm in maximum dimension, followup ultrasound every year for 5 years if 0.5 to 0.9 cm in maximum dimension. * TR3, TR4 or TR5 nodules that are below the size threshold for follow up receive no follow up.
== END 2022-02-25 10:19 | disposition home or self-care (01) ==
LOC: HO.HMGCX 10:18
PROVIDERS: PCP Internal Medicine; Visit Provider Internal Medicine Endocrinology, Diabetes & Metabolism
DX: E04.2 Nontoxic multinodular goiter (principal)
CPT/HCPCS: 76536

== ENCOUNTER → 2022-02-27 14:29 | Outpatient (BNVA) | payer MEDICARE, OTHER, SELFPAY | PROVIDERS: PCP Internal Medicine; Visit Provider Internal Medicine Endocrinology, Diabetes & Metabolism | DX: E04.2 Nontoxic multinodular goiter (principal); E13.65 Other specified diabetes mellitus with hyperglycemia; S36.209S Unspecified injury of unspecified part of pancreas, sequela | CPT/HCPCS: 99212 ==

== ENCOUNTER 2022-03-01 10:32 | Outpatient (REF) | payer MEDICARE, OTHER, SELFPAY ==
[2022-03-01 12:34] LABS: Thyroid Stimulating Hormone 0.74 uIU/mL (0.32-4.0)
== END 2022-03-01 10:33 | disposition home or self-care (01) ==
LOC: HO.HMGCLDS 10:32
PROVIDERS: PCP Internal Medicine; Visit Provider Internal Medicine Endocrinology, Diabetes & Metabolism
DX: E04.2 Nontoxic multinodular goiter (principal)
CPT/HCPCS: 36415; 84439; 84443

== ENCOUNTER 2022-03-20 08:14 | Outpatient (REF) | payer MEDICARE, OTHER, SELFPAY ==
--- NOTE | ~2022-03-20 | US_ITS ---
EXAMINATION: US ABDOMEN COMPLETE CLINICAL INFORMATION: Elevated LFTs. Dilation of biliary tract. COMPARISON: MRI abdomen 09/24/2017. TECHNIQUE: Real-time imaging of the abdominal viscera. FINDINGS: PANCREAS: The visualized head and the uncinate process of the pancreas is homogeneous in echotexture. The body and tail is not seen well. The patient has a history of neoplasm with surgical resection. ABDOMINAL AORTA: The proximal, mid, and distal segments are normal in caliber. INFERIOR VENA CAVA: Visualized portions are normal. LIVER: The liver is enlarged measuring 17.4 cm in length. The intrahepatic ducts are dilated. The right hepatic duct measures 0.43 cm and the left hepatic duct measures 0.35 cm. The liver contour is normal. The liver is coarse echogenic. Previously seen cyst on MRI is not visualized on the present exam. No focal hepatic lesion. GALLBLADDER: Surgically absent. COMMON BILE DUCT: Normal in caliber measuring 1.6 cm in diameter. RIGHT KIDNEY: There is an anechoic cyst lower pole measuring 0.2 x 0.2 x 0.3 cm. No hydronephrosis or focal parenchymal lesions. The kidney measures 11.1 cm in maximum dimension. LEFT KIDNEY: Normal. No hydronephrosis. No renal calculi or focal parenchymal lesions. The kidney measures 11.4 cm in maximum dimension. SPLEEN: The spleen has been surgically removed. FREE FLUID: None. US/US abdomen complete IMPRESSION: Hepatomegaly measuring 17.4 cm. Mildly dilated intrahepatic duct. Mild hepatic steatosis. No focal lesion seen. Anechoic right renal cyst. Part of the pancreas is removed. The head and the uncinate process of the pancreas is unremarkable.
== END 2022-03-20 08:15 | disposition home or self-care (01) ==
LOC: HO.HMGCX 08:14
PROVIDERS: Visit Provider Internal Medicine
DX: K83.8 Other specified diseases of biliary tract (principal); R79.89 Other specified abnormal findings of blood chemistry
CPT/HCPCS: 76700

== ENCOUNTER → 2022-04-03 09:18 | Outpatient (BNVA) | payer MEDICARE, OTHER, SELFPAY | PROVIDERS: PCP Internal Medicine; Visit Provider Registered Nurse Diabetes Educator | DX: E13.9 Other specified diabetes mellitus without complications (principal); S36.209S Unspecified injury of unspecified part of pancreas, sequela | CPT/HCPCS: 99211 ==

== ENCOUNTER → 2022-04-08 08:58 | Outpatient (BNVA) | payer MEDICARE, OTHER, SELFPAY | PROVIDERS: PCP Internal Medicine; Visit Provider Dietitian, Registered | DX: E13.65 Other specified diabetes mellitus with hyperglycemia (principal); Z71.3 Dietary counseling and surveillance | CPT/HCPCS: 97802 ==

== ENCOUNTER → 2022-07-10 12:10 | Outpatient (BNVA) | payer MEDICARE, OTHER, SELFPAY | PROVIDERS: PCP Internal Medicine; Visit Provider Internal Medicine Endocrinology, Diabetes & Metabolism | DX: E13.9 Other specified diabetes mellitus without complications (principal); S36.209S Unspecified injury of unspecified part of pancreas, sequela | CPT/HCPCS: 82947; 83036; 99212 ==

== ENCOUNTER 2022-07-18 08:16 | Outpatient (REF) | payer MEDICARE, OTHER, SELFPAY ==
[2022-07-18 11:28] LABS: Cholesterol 157 mg/dL; HDL Cholesterol 57 mg/dL; LDL Cholesterol Calculated 86 mg/dl; Triglycerides 70 mg/dL
== END 2022-07-18 08:17 | disposition home or self-care (01) ==
LOC: HO.HMGCLDS 08:16
PROVIDERS: PCP Internal Medicine; Visit Provider Internal Medicine Endocrinology, Diabetes & Metabolism
DX: E13.9 Other specified diabetes mellitus without complications (principal); S36.209S Unspecified injury of unspecified part of pancreas, sequela
CPT/HCPCS: 36415; 80061

== ENCOUNTER → 2022-09-24 08:25 | Outpatient (BNVA) | payer MEDICARE, OTHER, SELFPAY | PROVIDERS: PCP Internal Medicine; Visit Provider Registered Nurse Diabetes Educator | DX: E13.9 Other specified diabetes mellitus without complications (principal); S36.209S Unspecified injury of unspecified part of pancreas, sequela | CPT/HCPCS: 99211 ==

== ENCOUNTER → 2022-10-30 12:53 | Outpatient (BNVA) | payer MEDICARE, OTHER, SELFPAY | PROVIDERS: PCP Internal Medicine; Visit Provider Internal Medicine Endocrinology, Diabetes & Metabolism | DX: E13.9 Other specified diabetes mellitus without complications (principal); S36.209D Unspecified injury of unspecified part of pancreas, subsequent encounter; Z79.4 Long term (current) use of insulin | CPT/HCPCS: 82947; 83036; 99212 ==

== ENCOUNTER 2022-12-02 06:17 | Observation (INO) | payer MEDICARE, OTHER, SELFPAY ==
[2022-12-02] VITALS (7 sets, daily range): BP systolic 144–177; BP diastolic 73–91; PULSE 62–95; RESP 12–24; TEMP 36.8–37.4; O2SAT 94–96; BMI 29.2; BMI 29.7
--- NOTE | ~2022-12-02 | CT_ITS ---
EXAMINATION: CT CHEST, ABDOMEN AND PELVIS WITH CONTRAST. CLINICAL INFORMATION: Shortness of breath, back pain, fever. Nausea and vomiting. COMPARISON: Abdominal ultrasound 03/20/2022. TECHNIQUE: Multidetector volumetric imaging was performed from the thoracic inlet through the pubic symphysis following administration of 85 mL Omnipaque 350 intravenous contrast. Sagittal and coronal reformatted images were obtained on the technologist's workstation. This CT examination was performed using dose optimization techniques as appropriate, variously including the following: *Automated exposure control *Adjustment of mA and/or kV according to patient size (this includes techniques or standardized protocols for targeted exams where dose is matched to indication/reason for exam; i.e. extremities or head) *Use of iterative reconstruction technique DLP: 227 and 507 mGy-cm FINDINGS: CHEST: Lung: Patchy and ground-glass opacities in the right lower lobe, for instance anteriorly just posterior to the major fissure on image 320, series 8. Background of diffuse bronchial wall thickening and scattered mucus plugging. Platelike opacities in the lung apices, right greater than left, favoring to represent scarring or subsegmental atelectasis. The central airways are patent. Scattered solid sub-6 mm pulmonary nodules bilaterally, some examples (series 8): 1. A 3 mm nodule in the right upper lobe, image 110. 2. A 5 mm nodule in the right lower lobe, image 355. 3. A 4 mm nodule in the left lower lobe, image 333. 4. A 5 mm nodule in the medial left lower lobe, image 284. Mediastinum: Normal heart size. No pericardial effusion. Coronary artery calcifications are present. Mediastinal and right hilar lymphadenopathy, for instance a technical account representative subcarinal lymph node measuring 1.1 cm short axis (8:216) and a right hilar/peribronchial lymph node measuring 2.1 x 1.6 cm (8, and 217). Pericardium/Pleura: No pleural effusion. No pleural mass or thickening. No pneumothorax. Chest Wall/Axilla: No lymphadenopathy by size criteria. ABDOMEN/PELVIS: Peritoneal Space: No free air or free fluid. Liver, Gallbladder, Biliary Tree: The liver is normal in size, shape and attenuation. There is a 1.1 cm hypodensity in the periphery of the right hepatic lobe (6:18) with heterogeneous attenuation measuring higher than simple fluid, nonspecific. The gallbladder is not identified, presumably surgically removed. There is intrahepatic and extrahepatic biliary ductal dilatation, for instance the common hepatic duct measures up to 1.6 cm in diameter and the CBD measures up to 1 cm in diameter with cut off in the periampullary region, best seen on coronal image 29 series 16. No radiopaque choledocholithiasis. Pancreas: The patient is status post distal pancreatectomy. The remaining head and uncinate process are within normal limits. No peripancreatic free fluid or fat stranding. The main duct is nondilated. Spleen: Splenectomy. Adrenal Glands: Unremarkable. Kidneys and Ureters: The kidneys are normal in size, shape, and attenuation. No hydronephrosis, hydroureter, or calculi seen. No perinephric stranding. Bladder: Unremarkable. Gastrointestinal Tract: The stomach and the small bowel are nondilated. Normal appendix. Colonic diverticulosis without pericolonic inflammatory changes. No evidence of bowel obstruction. Abdominal Wall: No significant hernia is appreciated. Lymphovascular Structures: Scattered subcentimeter short axis abdominopelvic lymph nodes, including for example a prominent 0.8 cm short axis right external iliac lymph node (14:527). No pathologically enlarged lymph nodes by CT short axis size criteria. Scattered atherosclerotic disease. The abdominal aorta is of normal diameter. Pelvic Viscera: No pelvic mass. No free fluid. Osseous Structures: No acute or aggressive osseous findings. Degenerative changes of the spine. CT/CT chest w IV con IMPRESSION: CHEST: 1. Patchy and groundglass opacities in the right lower lobe concerning for an infectious/inflammatory process, including pneumonia. A short-term followup imaging is recommended after treatment to ensure appropriate resolution. 2. Scattered sub-6 mm pulmonary nodules. There are postsurgical changes from distal pancreatectomy, suggesting perhaps the history of neoplasia; in this context metastatic disease is not excluded, and followup according to oncology guidelines with a short-term followup chest CT is recommended. 3. Nonspecific mediastinal and right hilar lymphadenopathy that could be followup with the above recommended chest CT. ABDOMEN/PELVIS: 1. Intra and extrahepatic biliary ductal dilatation with cut off of the CBD in the periampullary region; recommend further evaluation with an MR/MRCP. 2. Indeterminate 1.1 cm hypodensity in the right hepatic lobe, measuring higher than simple fluid in attenuation, this could potentially represent volume averaging within a simple cyst due to small size. Further evaluation with the above stated MRI is recommended for definite characterization. 3. Colonic diverticulosis but no evidence of acute diverticulitis.
--- NOTE | ~2022-12-02 | MR_ITS ---
EXAMINATION: MR ABDOMEN WITHOUT CONTRAST CLINICAL INFORMATION: Dilated common bile duct. COMPARISON: CT scan of the abdomen and pelvis dated 12/02/2022, abdominal ultrasound dated 03/20/2022. TECHNIQUE: MR abdomen is performed without gadolinium contrast. MRCP was performed with 3-D reformatted images performed on a separate workstation. FINDINGS: LUNG BASES: The visualized lung bases are unremarkable. LIVER, GALLBLADDER, AND BILIARY TREE: Several small T2 hyperintense foci are seen. A sales representative raw fibers focus posterolaterally in the right lobe measures 1.2 cm in AP dimension (image 4, series 4). Status post cholecystectomy. The common hepatic duct measures up to 1.6 cm (image 20, series 11). The common bile duct measures up to 1.1 cm with normal tapering distally to the pancreatic head. No intraluminal abnormality. PANCREAS: Status post distal pancreatectomy. The pancreatic head is unremarkable. No significant pancreatic ductal dilatation. SPLEEN: Unremarkable. ADRENAL GLANDS: Unremarkable. KIDNEYS AND URETERS: The kidneys are normal in size and shape. No hydronephrosis. No perinephric stranding. GASTROINTESTINAL TRACT: The stomach, visualized small bowel bowel and visualized large bowel are unremarkable. ABDOMINAL WALL: No significant hernia is appreciated. LYMPH NODES: No lymphadenopathy. VASCULAR: Unremarkable. OSSEOUS STRUCTURES: Marrow signal normal. MR/MR MRCP IMPRESSION: 1. Dilatation of the common bile duct without associated abnormality. This is similar to the previous abdominal ultrasound and is within normal limits for patient of this age status post cholecystectomy. 2. Postsurgical pancreatic changes without significant abnormality.
--- NOTE | 2022-12-02 07:07 | ECG_ITS ---
Test Reason : ABD PAIN Blood Pressure : / mmHG Vent. Rate : 092 BPM Atrial Rate : 092 BPM P-R Int : 144 ms QRS Dur : 076 ms QT Int : 360 ms P-R-T Axes : 038 -67 034 degrees QTc Int : 445 ms Normal sinus rhythm Pulmonary disease pattern Left anterior fascicular block Abnormal ECG When compared with ECG of 11-DEC-2021 01:12, No significant change was found Referred By: Gail Butcher Electronically Signed By:Tanmay King
[2022-12-02 07:26] LABS: MANUAL DIFF FLAG NO
[2022-12-02 07:29] LABS: Basophils Percent Auto 0.4 % (0-2); Eosinophils Percent Auto 0.5 % (0-4); Hematocrit 41.5 % (37.0-47.0); Hemoglobin 14.2 g/dl (12.0-16.0); Imm Gran Abs Auto 0.03 X10*3/uL (0.00-0.03); Imm Gran Pct Auto 0.4 % (0.0-0.4); Lymphocytes Absolute Auto 2.4 X10*3/uL (1.2-4.9); Lymphocytes Percent Auto 29.4 % (20-40); Mean Corpuscular HGB Conc 34.2 g/dl (31.0-35.0); Mean Corpuscular Volume 87.7 fL (80.0-98.0); Mean Platelet Volume 9.2 fL (9.4-12.3); Monocytes Percent Auto 12.7 % (2-11); Neutrophils Absolute Auto 4.6 x10*3/uL (2.0-8.3); Neutrophils Percent Auto 56.6 % (45-73); Platelet Count 323 X10*3/uL (160-400); Red Blood Count 4.73 X10*6/uL (4.20-5.50); Red Cell Distribution Width 13.6 % (11.0-16.0); White Blood Count 8.1 X10*3/uL (4.8-10.8)
--- NOTE | 2022-12-02 07:39 | ED_ITS ---
HPI - General Adult General Chief complaint: General Medical Stated complaint: abd pain Time Seen by Provider: 12/02/22 06:33 Source: patient Mode of arrival: ambulatory History of Present Illness HPI narrative: 67-year-old female with a significant past medical history of pancreatic cancer for which she had a Whipple in 2018, patient has also recently had bladder cancer and she is seen in [place] for both of these conditions that are co nsidered to be in remission/cured at this time. Patient comes in with a cough for 1 week associated with fevers and then 4 days ago began experiencing significant abdominal discomfort as well as bilateral lower extremity discomfort and then extending into the upper back with occasional headaches. Patient otherwise denies any urinary pain/burning/frequency. She reports nausea and vomiting and has been unable to eat to treat her underlying diabetes. Related Data Home Medications Medication Instructions Recorded Confirmed certolizumab pegol 400 mg/2 mL 200 mg subcut Q4W 07/18/20 11/19/22 (200 mg/mL x2) subcutaneous syringe kit ([facility]) multivitamin 1 tab PO DAILY 07/18/20 11/19/22 omega-3 fatty acids 1,000 mg 1,000 mg PO DAILY 07/18/20 11/19/22 capsule (Fish Oil Concentrate) biotin 10,000 mcg disintegrating 10,000 mcg PO DAILY 08/24/20 11/19/22 tablet blood-glucose meter #1 ea 08/24/20 11/19/22 blood-glucose sensor (Dexcom G6 12/24/21 11/19/22 Sensor device) blood-glucose transmitter (Dexcom 12/24/21 11/19/22 G5 Transmitter device) docusate sodium 100 mg capsule 100 mg PO BID 07/10/22 11/19/22 insulin glargine 100 unit/mL (3 14 unit subcut QPM 07/10/22 11/19/22 mL) subcutaneous pen (Lantus Solostar U-100 Insulin) bolus insulin pump, 200 unit 2 #10 ea 10/30/22 11/19/22 unit bolus insulin patch pump, 200 unit, disposable ([employer]) cholecalciferol (vitamin D3) 25 25 mcg PO DAILY 10/30/22 11/19/22 mcg (1,000 unit) capsule diabetic supplies, [employer]. #1 ea 10/30/22 11/19/22 ([employer] [facility] Libr[facility] Extension Department) Previous Rx's Medication Instructions Recorded blood-glucose meter (OneTouch #1 ea 07/18/20 Verio Flex Start kit) fluticasone propionate 50 2 spray intranasal DAILY #16 grams 11/09/21 mcg/actuation nasal spray,suspension (Flonase Allergy Relief) albuterol sulfate 90 mcg/actuation 1 inh inhalation QID PRN shortness 01/28/22 aerosol inhaler of breath or wheezing #6.7 grams tizanidine 2 mg tablet 2 mg PO Q12H PRN muscle spasticity 01/30/22 #10 tabs lidocaine 4 % topical patch 1 patch topical DAILY PRN pain #15 02/06/22 (Aspercreme (lidocaine)) ea omeprazole 40 mg capsule,delayed 40 mg PO DAILY #90 caps 03/26/22 release blood pressure monitor (Blood #1 ea 05/09/22 Pressure Kit) lorazepam 1 mg tablet 1 mg PO DAILY PRN anxiety 30 days 05/09/22 #30 tabs pen needle, diabetic 32 gauge x #450 ea 06/07/22 glucagon 3 mg/actuation nasal 3 mg intranasal ONCE #2 ea 07/10/22 spray (Baqsimi) blood sugar diagnostic (OneTouch #100 strips 09/20/22 Verio test strips) alcohol swabs (Alcohol Prep Pads) 400 pad topical 4-6XD #400 ea 09/26/22 insulin lispro 100 unit/mL See Rx Instructions subcut 10/08/22 subcutaneous solution (Humalog USEASDIRECTD #10 mL U-100 Insulin) atorvastatin 20 mg tablet 20 mg PO DAILY #90 tabs 11/04/22 lisinopril 10 mg tablet 10 mg PO DAILY #30 tabs 11/19/22 Allergies Allergy/AdvReac Type Severity Reaction Status Date / Time amoxicillin [AMOXICILLIN] Allergy Unknown HIVES Verified 11/19/22 13:37 azathioprine [From IMURAN] Allergy Unknown ABNORMAL Verified 11/19/22 13:37 LABS,HIVES etanercept [From ENBREL] Allergy Unknown HIVES Verified 11/19/22 13:37 infliximab [From REMICADE] Allergy Unknown RASH Verified 11/19/22 13:37 levofloxacin Allergy Unknown GI Upset Verified 11/19/22 13:37 nickel [NICKEL] Allergy Unknown UNKNOWN Verified 11/19/22 13:37 penicillin V Allergy Unknown hives Verified 11/19/22 13:37 Penicillins [PCN] Allergy Unknown HIVES Verified 11/19/22 13:37 tramadol AdvReac Nausea, Verified 11/19/22 13:37 sweating, dizzy tramadol AdvReac Intermediate Sweats Uncoded 11/19/22 13:37 Review of Systems Review of Systems: Pertinent positives and negatives as stated in HPI [facility] Past Medical History Source: nursing notes reviewed Medical History Acute sinusitis Anxiety Behcet's disease Behcet's syndrome Bladder cancer COPD (chronic obstructive pulmonary disease) 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 Dysuria Essential hypertension Fractured coccyx GERD (gastroesophageal reflux disease) History of DVT (deep vein thrombosis) Hyperlipidemia LDL goal <100 Malignant neoplasm of pancreas, unspecified Non-toxic multinodular goiter Obstructive sleep apnea Osteoporosis Pulmonary nodule Right tibial fracture Thyroid nodule Tobacco abuse Type 2 diabetes mellitus with hyperglycemia Uncontrolled diabetes mellitus Vitamin D insufficiency Surgical History H/O splenectomy History of back surgery History of cholecystectomy History of colonoscopy History of open reduction and internal fixation (ORIF) procedure History of pancreatic surgery History of surgery History of surgery History of varicose veins of lower extremity Family History Family History Father Diabetes Advanced cardiac disease Mother Asthma Osteoporosis Brain cancer Brother Lung cancer Sister Breast cancer History of Coumadin therapy Brother Colostomy in place Daughter No problems noted. Son No problems noted. Social History Social History Household Members: None Housing: House Do you presently have visiting nurse or other home services: No Alcohol intake: never Patient Tobacco Use Status: Current someday Tobacco user Tobacco use type: Cigarette Cigarette Packs Per Day: 0.5 Smoked in Last 30 Days: Yes e-Cigarette/Vaping Use: Never Used Second Hand Smoke Exposure: No Use of substances other than those prescribed or required for medical reasons: No Advance Directives: Yes Advance Directives on File: Yes Advance Directives Date on File: 12/11/21 service: No Current occupational status: retired Cognitive needs: No Hearing needs: No Vision needs: Yes Physical Exam ED Vital Signs: Vital Signs - 24 hr 12/02/22 06:23 12/02/22 09:21 12/02/22 10:30 Temperature 99.3 F Pulse Rate 95 85 Respiratory Rate 16 24 H 14 Blood Pressure 156/91 H 151/86 H Pulse Oximetry 94 94 Oxygen Delivery Method Room Air Room Air 12/02/22 11:28 Temperature 98.7 F Pulse Rate 74 Respiratory Rate 12 Blood Pressure 147/82 H Pulse Oximetry 96 Oxygen Delivery Method Room Air BMI result Body Mass Index 29.2 VITAL SIGNS: Reviewed. GENERAL: Well developed, well nourished, in moderate distress. HEAD: Normocephalic/atraumatic EYES: PERRLA, EOMI EARS: Ext canals without abnormality, TMs non-bulging and non-erythematous NOSE: Nares patent bilateral OROPHARYNX: no oral lesions noted, posterior pharynx clear NECK: Supple, no adenopathy LUNGS: Normal breath sounds. No adventitious sounds or accessory muscle use. SpO2<94> CARDIOVASCULAR: Regular rate and rhythm without noted murmurs, no JVD or lower extremity edema. ABDOMEN: Soft, diffuse mild tenderness, no pulsatile masses, distended with bowel sounds. MUSCULOSKELETAL: No tenderness, deformities, or effusions noted on gross inspection. EXTREMITIES: No cyanosis, clubbing or edema. SKIN: Inspection of the skin reveals no rashes NEUROLOGIC: Alert and oriented x 4. Strength and sensation to light touch were grossly intact x 4. Medications Administered Discontinued Medications Generic Name Dose Route Start Last Admin Trade Name Freq PRN Reason Stop Dose Admin Acetaminophen 975 mg 12/02/22 11:12 12/02/22 11:22 Acetaminophen 325 Mg Tablet PO 12/02/22 11:13 975 mg ONCE ONE Administration Fentanyl 25 mcg 12/02/22 07:41 12/02/22 08:03 Fentanyl Citrate/Pf 100 Mcg/2 Ml Vial IVPUSH 12/02/22 07:42 25 mcg ONCE ONE Administration Protocol Fentanyl 25 mcg 12/02/22 10:24 12/02/22 10:30 Fentanyl Citrate/Pf 100 Mcg/2 Ml Vial IVPUSH 12/02/22 10:25 25 mcg ONCE ONE Administration Protocol Sodium Chloride 1,000 mls @ 999 mls/hr 12/02/22 07:45 12/02/22 11:30 Ns IV 12/02/22 08:45 Infused .Q1H1M MACY Infusion Iohexol 85 ml 12/02/22 09:00 12/02/22 09:01 Iohexol 350 Mg/Ml 100 Ml Infus..Btl IV 12/02/22 09:01 85 ml ONCE ONE Administration Ketorolac Tromethamine 15 mg 12/02/22 11:12 12/02/22 11:21 Ketorolac Tromethamine 30 Mg/Ml Vial IVPUSH 12/02/22 11:13 15 mg ONCE ONE Administration Medical Decision Making Medical Decision Making [facility] Narrative: 0747: 67-year-old female with history and clinical presentation significant for past surgical history and possible SBO, verses perforation with fevers verses cancer recurrence. 1000: On review of all investigations my interpretation is that this patient dilated biliary system and known pancreatic cancer with prior surgery and removal of part of the pancreas (according to the patient). CT scan with findings of possible pneumonia in the right lower lobe although patient has no white count and is afebrile she has reported chills and has a persistent cough. Will treat empirically with antibiotics and request records from [place]. On re-evaluation patient continues to describe significant amount of body pain, given Tylenol and Toradol, lactic acid and blood cultures as well as antibiotics have been ordered. Differential Diagnosis Please see the discussion above Consult Healthcare Provider Management of the patient was discussed with: Hospitalist [id number]: Contacted the hospitalist for admission for pneumonia and intractable pain who agrees with admission. Lab Data Please see the discussion above 12/02/22 07:22 12/02/22 07:22 Labs: Lab Results 12/02/22 12/02/22 12/02/22 Range/Units 07:22 07:22 07:32 WBC 8.1 (4.8-10.8) X10*3/uL RBC 4.73 (4.20-5.50) X10*6/uL Hgb 14.2 (12.0-16.0) g/dl Hct 41.5 (37.0-47.0) % MCV 87.7 (80.0-98.0) fL MCH 30.0 (27.0-33.0) pg MCHC 34.2 (31.0-35.0) g/dl RDW 13.6 (11.0-16.0) % Plt Count 323 (160-400) X10*3/uL MPV 9.2 L (9.4-12.3) fL Immature Gran % (Auto) 0.4 (0.0-0.4) % Neut % (Auto) 56.6 (45-73) % Lymph % (Auto) 29.4 (20-40) % [place] % (Auto) 12.7 H (2-11) % Eos % (Auto) 0.5 (0-4) % Baso % (Auto) 0.4 (0-2) % Lymph # (Auto) 2.4 (1.2-4.9) X10*3/uL [place] # (Auto) 1.0 (0.1-1.2) X10*3/uL Eos # (Auto) 0.0 (0.0-0.4) X10*3/uL Baso # (Auto) 0.0 (0.0-0.2) X10*3/uL Abs Immat Gran (auto) 0.03 (0.00-0.03) X10*3/uL Absolute Neuts (auto) 4.6 (2.0-8.3) x10*3/uL Absolute Nucleated RBC 0.000 (0.0-0.012) X10*3/uL Nucleated RBC % (auto) 0.0 (0.0-0.2) /100WBC Sodium 138 (135-145) mmol/L Potassium 4.4 (3.3-5.1) mmol/L Chloride 103 (96-108) mmol/L Carbon Dioxide 27 (22-29) mmol/L Anion Gap 12 (12-20) BUN 11 (9-16) mg/dL Creatinine 0.73 (0.5-1.4) mg/dL Estim Creat Clear Calc 68.8 Estimated GFR > 60 Random Glucose 149 H (60-115) mg/dL Calcium 8.4 D (8.4-10.2) mg/dL Total Bilirubin 0.3 (0.0-1.0) mg/dL AST 30 (5-31) U/L ALT 30 (0-31) U/L Alkaline Phosphatase 86 (39-117) U/L Total Protein 6.8 (6.5-8.0) g/dL Albumin 4.0 (3.5-5.0) g/dL Lipase 16 (8-78) U/L Urine Color Yellow Urine Appearance Clear Urine pH 6.5 (5.0-9.0) Ur Specific [place] 1.015 (1.005-1.025) Urine Protein Negative (Neg-Trace) mg/dL Urine Glucose (UA) Negative (Negative) mg/dL Urine Ketones Negative (Negative) mg/dL Urine Blood Negative (Negative) Urine Nitrite Negative (Negative) Ur Leukocyte Esterase Moderate (2+) H (Negative) Urine RBC 0-2 (0-2) /HPF Urine WBC 0-5 (0-5) /HPF Ur Squamous Epith Cells 6-10 (0-2) /HPF Urine Bacteria None Seen (None Seen) Hyaline Casts 0-2 (0-2) /LPF Influenza Type A (PCR) (Negative) Influenza Type B (PCR) (Negative) RSV RNA Qual (PCR) (Negative) SARS-CoV-2 RNA (RT-PCR) (Negative) 12/02/22 Range/Units 07:46 WBC (4.8-10.8) X10*3/uL RBC (4.20-5.50) X10*6/uL Hgb (12.0-16.0) g/dl Hct (37.0-47.0) % MCV (80.0-98.0) fL MCH (27.0-33.0) pg MCHC (31.0-35.0) g/dl RDW (11.0-16.0) % Plt Count (160-400) X10*3/uL MPV (9.4-12.3) fL Immature Gran % (Auto) (0.0-0.4) % Neut % (Auto) (45-73) % Lymph % (Auto) (20-40) % [place] % (Auto) (2-11) % Eos % (Auto) (0-4) % Baso % (Auto) (0-2) % Lymph # (Auto) (1.2-4.9) X10*3/uL [place] # (Auto) (0.1-1.2) X10*3/uL Eos # (Auto) (0.0-0.4) X10*3/uL Baso # (Auto) (0.0-0.2) X10*3/uL Abs Immat Gran (auto) (0.00-0.03) X10*3/uL Absolute Neuts (auto) (2.0-8.3) x10*3/uL Absolute Nucleated RBC (0.0-0.012) X10*3/uL Nucleated RBC % (auto) (0.0-0.2) /100WBC Sodium (135-145) mmol/L Potassium (3.3-5.1) mmol/L Chloride (96-108) mmol/L Carbon Dioxide (22-29) mmol/L Anion Gap (12-20) BUN (9-16) mg/dL Creatinine (0.5-1.4) mg/dL Estim Creat Clear Calc Estimated GFR Random Glucose (60-115) mg/dL Calcium (8.4-10.2) mg/dL Total Bilirubin (0.0-1.0) mg/dL AST (5-31) U/L ALT (0-31) U/L Alkaline Phosphatase (39-117) U/L Total Protein (6.5-8.0) g/dL Albumin (3.5-5.0) g/dL Lipase (8-78) U/L Urine Color Urine Appearance Urine pH (5.0-9.0) Ur Specific [place] (1.005-1.025) Urine Protein (Neg-Trace) mg/dL Urine Glucose (UA) (Negative) mg/dL Urine Ketones (Negative) mg/dL Urine Blood (Negative) Urine Nitrite (Negative) Ur Leukocyte Esterase (Negative) Urine RBC (0-2) /HPF Urine WBC (0-5) /HPF Ur Squamous Epith Cells (0-2) /HPF Urine Bacteria (None Seen) Hyaline Casts (0-2) /LPF Influenza Type A (PCR) NEGATIVE (Negative) Influenza Type B (PCR) NEGATIVE (Negative) RSV RNA Qual (PCR) NEGATIVE (Negative) SARS-CoV-2 RNA (RT-PCR) NEGATIVE (Negative) Independent Interpretation I performed an independent interpretation of an: EKG Interpretation: Normal sinus rhythm, HR-92, no STEMI, NE/QRS/QTC is within normal limits. Radiology Impression Radiologist Impression: My interpretation is in agreement with radiology's impression of the imaging studies. External Record Review External record reviewed: Outpatient record and Prior outpatient labs Chronic Conditions Patient?s care impacted by: Diabetes Critical Care Time Critical Care Time Critical Care Time: Yes Total Critical Care Time: 60 Attestation: I personally attest to this time spent taking care of the patient. Discharge Plan Discharge Clinical Impression: Pneumonia, Intractable pain Patient Disposition: Admitted As Inpatient
[2022-12-02 07:40] LABS: Appearance Urine Clear; Color Urine Yellow; Glucose Urine UA Negative (Negative); Leukocyte Esterase Urine Moderate (2+) (Negative); Nitrite Urine Negative (Negative); PH 6.5 (5.0-9.0); Specific Gravity - Urine 1.015 (1.005-1.025); UMIC TRIGGER UACC YES; Urine Blood Negative (Negative); Urine Ketones Negative (Negative); Urine Protein Negative (Neg-Trace)
[2022-12-02 07:42] LABS: Alanine Aminotransferase 30 U/L (0-31); Alkaline Phosphatase 86 U/L (39-117); Anion Gap 12 (12-20); Aspartate Amino Transferase 30 U/L (5-31); Bilirubin Total 0.3 mg/dL (0.0-1.0); Blood Urea Nitrogen 11 mg/dL (9-16); Calcium 8.4 mg/dL (8.4-10.2); Carbon Dioxide 27 mmol/L (22-29); Chloride 103 mmol/L (96-108); Creatinine Clr Calc Pharmacy 68.8; Estimated Glomerular Filt Rate > 60; Glucose Random 149 mg/dL (60-115); Lipase 16 U/L (8-78); Potassium 4.4 mmol/L (3.3-5.1); Sodium 138 mmol/L (135-145); Total Protein 6.8 g/dL (6.5-8.0)
[2022-12-02 07:51] LABS: Bacteria Urine None Seen (None Seen); Hyaline Casts Urine 0-2 /LPF (0-2); RBC Urine 0-2 /HPF (0-2); WBC Urine 0-5 /HPF (0-5)
[2022-12-02] MEDS: 0.9 % Sodium Chloride 1,000 ML 999 ML IV (07:59)
[2022-12-02] MEDS: fentaNYL citrate/PF 100 MCG/2 ML VIAL 25 MCG IVPUSH ×2 (08:03→10:30)
[2022-12-02 08:28] LABS: Influenza A PCR NEGATIVE (Negative); Influenza B PCR NEGATIVE (Negative); Resp Syncy Virus RNA Qual PCR NEGATIVE (Negative); SARS COV2 PCR INHOUSE NEGATIVE (Negative)
--- NOTE | 2022-12-02 08:36 | PC.NURSE ---
pt son sts pt is in pain 10 mins s/p medical authorization specialist. pt appears wincing in bed, vss, rr even/unlabored. provider aware. awaiting ct scan.
[2022-12-02] MEDS: iohexoL 350 MG/ML 100 ML INFUS..BTL 85 ML IV (09:01)
[2022-12-02] MEDS: Ketorolac Tromethamine 30 MG/ML VIAL 15 MG IVPUSH (11:21)
[2022-12-02] MEDS: Acetaminophen 325 MG TABLET 975 MG PO (11:22)
[2022-12-02 12:49] LABS: Lactic Acid 0.6 mmol/L (0.5-2.0)
--- NOTE | 2022-12-02 12:59 | P.HPHOSP_ITS ---
History of Present Illness Date of Service: 12/02/22 Attending physician on admission: Nakul Plascencia Chief Complaint: abd pain 59-year-old female with history insulin-dependent type 2 diabetes, history bladder cancer on maintenance therapy and history pancreatic cancer s/p Whipple procedure in 2018 both in remission per patient following at [facility], hypertension, COPD, Behcet's disease, disease, obstructive sleep apnea on CPAP, osteoporosis, GERD, hyperlipidemia, among others presented to the ED earlier today for evaluation of cough, fevers, and abdominal is comfort. States symptoms began about 1 week ago. States there is also bilateral lower extremity discomfort radiating to the upper back associated with the abdominal pain, which is primarily epigastric. Also endorsing occasional headaches. There has been associated nausea and vomiting and decreased p.o. intake. Denies sick contacts. No sore throat, nasal congestion, dysphagia, vomiting, diarrhea, shortness of breath, wheezing, chest pain. On arrival, vital signs stable. Renal function baseline, electrolyte levels normal. Urinalysis unremarkable except for 2+ leukocytes. Negative for influenza, COVID-19, and RSV. Chest CT with right lower lobe patchy/ground- glass opacities concerning for infectious versus inflammatory process including pneumonia as well as scattered tiny pulmonary nodules. Given history of malignancy, short-term follow-up with chest CT is recommended as metastatic disease is not excluded given clinical picture. There is also nonspecific mediastinal and right hilar lymphadenopathy that should be followed up with the above-mentioned recommended chest CT. CT of the abdomen/pelvis shows intra and extrahepatic biliary ductal dilatation with cutoff of CBD in the periampullary region, recommend follow-up with MRCP. In ED, given IV ceftriaxone as well as fentanyl, ketorolac, Tylenol for pain management. She denies etoh use or illicit drug use or marijuana use. Does endorse smoking 0.5-0.75 ppd cigarettes. Review of Systems Review of Systems: General: +fevers. No malaise, unintentional weight loss HEENT: No blurred vision, diplopia. No sore throat, nasal congestion, rhinorrhe a, sinus pain, ear pain Cardiovascular: No chest pain, palpitations, or leg edema Respiratory: +cough. No shortness of breath, wheezing GI: +n/v, +abd pain. No diarrhea, constipation, melena, hematochezia : No dysuria, hematuria, increased urinary frequency, decreased urinary output MSK: No myalgia, back pain. 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 Dysuria Essential hypertension Fractured coccyx GERD (gastroesophageal reflux disease) History of DVT (deep vein thrombosis) Hyperlipidemia LDL goal <100 Malignant neoplasm of pancreas, unspecified Non-toxic multinodular goiter Obstructive sleep apnea Osteoporosis Pulmonary nodule Right tibial fracture Thyroid nodule Tobacco abuse Type 2 diabetes mellitus with hyperglycemia Uncontrolled diabetes mellitus Vitamin D insufficiency Family History Father Diabetes Advanced cardiac disease Mother Asthma Osteoporosis Brain cancer Brother Lung cancer Sister Breast cancer History of Coumadin therapy Brother Colostomy in place Daughter No problems noted. Son No problems noted. Surgical History H/O splenectomy History of back surgery History of cholecystectomy History of colonoscopy History of open reduction and internal fixation (ORIF) procedure History of pancreatic surgery History of surgery History of surgery History of varicose veins of lower extremity Social History Household Members: None Housing: House Do you presently have visiting nurse or other home services: No Alcohol intake: never Patient Tobacco Use Status: Current someday Tobacco user Tobacco use type: Cigarette Cigarette Packs Per Day: 0.5 Smoked in Last 30 Days: Yes e-Cigarette/Vaping Use: Never Used Second Hand Smoke Exposure: No Use of substances other than those prescribed or required for medical reasons: No Advance Directives: Yes Advance Directives on File: Yes Advance Directives Date on File: 12/11/21 service: No Current occupational status: retired Cognitive needs: No Hearing needs: No Vision needs: Yes Meds Allergies Allergy/AdvReac Type Severity Reaction Status Date / Time amoxicillin [AMOXICILLIN] Allergy Unknown HIVES Verified 11/19/22 13:37 azathioprine [From IMURAN] Allergy Unknown ABNORMAL Verified 11/19/22 13:37 LABS,HIVES etanercept [From ENBREL] Allergy Unknown HIVES Verified 11/19/22 13:37 infliximab [From REMICADE] Allergy Unknown RASH Verified 11/19/22 13:37 levofloxacin Allergy Unknown GI Upset Verified 11/19/22 13:37 nickel [NICKEL] Allergy Unknown UNKNOWN Verified 11/19/22 13:37 penicillin V Allergy Unknown hives Verified 11/19/22 13:37 Penicillins [PCN] Allergy Unknown HIVES Verified 11/19/22 13:37 tramadol AdvReac Nausea, Verified 11/19/22 13:37 sweating, dizzy tramadol AdvReac Intermediate Sweats Uncoded 11/19/22 13:37 Home Medications Medication Instructions Recorded Confirmed Last Taken Type certolizumab pegol 400 mg/2 mL 200 mg subcut Q4W 07/18/20 12/02/22 11/21/22 Hi story (200 mg/mL x2) subcutaneous syringe kit (Availinkzia) multivitamin 1 tab PO DAILY 07/18/20 12/02/22 Unknown History omega-3 fatty acids 1,000 mg 1,000 mg PO DAILY 07/18/20 12/02/22 Unknown History capsule (Fish Oil Concentrate) blood-glucose meter #1 ea 08/24/20 11/19/22 Unknown History blood-glucose sensor (Dexcom G6 12/24/21 11/19/22 Unknown History Sensor device) blood-glucose transmitter (Dexcom 12/24/21 11/19/22 Unknown History G5 Transmitter device) docusate sodium 100 mg capsule 100 mg PO BID 07/10/22 12/02/22 Unknown History insulin glargine 100 unit/mL (3 16 unit subcut BEDTIME 07/10/22 12/02/22 Unknown History mL) subcutaneous pen (Lantus Solostar U-100 Insulin) bolus insulin pump, 200 unit 2 #10 ea 10/30/22 11/19/22 Unknown History unit bolus insulin patch pump, 200 unit, disposable (CeQur Simplicity) cholecalciferol (vitamin D3) 25 25 mcg PO DAILY 10/30/22 12/02/22 Unknown History mcg (1,000 unit) capsule diabetic supplies, miscellan. #1 ea 10/30/22 11/19/22 Unknown History (CeQur Simplicity Parts Processor) bolus insulin pump, 200 unit 2 12/02/22 12/02/22 Unknown History unit bolus insulin patch pump, 200 unit, disposable (CeQur Simplicity) glucagon 3 mg/actuation nasal 3 mg intranasal ONCE PRN 12/02/22 12/02/22 Unknown History spray (Baqsimi) Hypoglycemia omeprazole 40 mg capsule,delayed 40 mg PO DAILY@0630 12/02/22 12/02/22 Unknown History release tizanidine 2 mg tablet 2 mg PO BID PRN Muscle Spasm 12/02/22 12/02/22 Unknown History Physical Exam Vital Signs and Narrative: Vital Signs: Last Vital Signs Temp 98.7 F 12/02/22 11:28 Pulse 74 12/02/22 11:28 Resp 12 12/02/22 11:28 BP 147/82 H 12/02/22 11:28 Pulse Ox 96 12/02/22 11:28 O2 Del Method 12/02/22 11:28 BMI result Body Mass Index 29.2 Constitutional - Awake and Alert, No apparent distress Eyes - PERRLA, EOMI Cardiovascular - S1S2, RRR, No edema Respiratory - Normal lung expansion, Normal respiratory effort, No respiratory distress, scattered wheezes bilaterally most prominent in RLL with rhonchi Gastrointestinal - mild epigastric ttp without guarding or rebound. ND; +BS - No CVA tenderness Extremities - no calf tenderness bilaterally, no swelling Skin - Warm/Dry Neurological - Alert & oriented x3, 5/5 strength BUE and BLE Psychological - Appropriate affect Results Labs 12/02/22 07:22 12/02/22 07:22 Labs: Laboratory Results - last 24 hr 12/02/22 12/02/22 12/02/22 07:22 07:22 07:32 MCV 87.7 MCH 30.0 MCHC 34.2 RDW 13.6 Plt Count 323 MPV 9.2 L Immature Gran % (Auto) 0.4 Neut % (Auto) 56.6 Lymph % (Auto) 29.4 [place] % (Auto) 12.7 H Eos % (Auto) 0.5 Baso % (Auto) 0.4 Lymph # (Auto) 2.4 [place] # (Auto) 1.0 Eos # (Auto) 0.0 Baso # (Auto) 0.0 Abs Immat Gran (auto) 0.03 Absolute Neuts (auto) 4.6 Absolute Nucleated RBC 0.000 Nucleated RBC % (auto) 0.0 Anion Gap 12 Estim Creat Clear Calc 68.8 Estimated GFR > 60 Random Glucose 149 H Lactic Acid Calcium 8.4 D Total Bilirubin 0.3 AST 30 ALT 30 Alkaline Phosphatase 86 Total Protein 6.8 Albumin 4.0 Lipase 16 Urine Color Yellow Urine Appearance Clear Urine pH 6.5 Ur Specific [place] 1.015 Urine Protein Negative Urine Glucose (UA) Negative Urine Ketones Negative Urine Blood Negative Urine Nitrite Negative Ur Leukocyte Esterase Moderate (2+) H Urine RBC 0-2 Urine WBC 0-5 Ur Squamous Epith Cells 6-10 Urine Bacteria None Seen Hyaline Casts 0-2 Influenza Type A (PCR) Influenza Type B (PCR) RSV RNA Qual (PCR) SARS-CoV-2 RNA (RT-PCR) 12/02/22 12/02/22 07:46 12:31 MCV MCH MCHC RDW Plt Count MPV Immature Gran % (Auto) Neut % (Auto) Lymph % (Auto) [place] % (Auto) Eos % (Auto) Baso % (Auto) Lymph # (Auto) [place] # (Auto) Eos # (Auto) Baso # (Auto) Abs Immat Gran (auto) Absolute Neuts (auto) Absolute Nucleated RBC Nucleated RBC % (auto) Anion Gap Estim Creat Clear Calc Estimated GFR Random Glucose Lactic Acid 0.6 Calcium Total Bilirubin AST ALT Alkaline Phosphatase Total Protein Albumin Lipase Urine Color Urine Appearance Urine pH Ur Specific [place] Urine Protein Urine Glucose (UA) Urine Ketones Urine Blood Urine Nitrite Ur Leukocyte Esterase Urine RBC Urine WBC Ur Squamous Epith Cells Urine Bacteria Hyaline Casts Influenza Type A (PCR) NEGATIVE Influenza Type B (PCR) NEGATIVE RSV RNA Qual (PCR) NEGATIVE SARS-CoV-2 RNA (RT-PCR) NEGATIVE Imaging Radiologist's Impressions: Impressions Abdomen/Pelvis CT 12/02/22 09:19 IMPRESSION: CHEST: 1. Patchy and groundglass opacities in the right lower lobe concerning for an infectious/inflammatory process, including pneumonia. A short-term followup imaging is recommended after treatment to ensure appropriate resolution. 2. Scattered sub-6 mm pulmonary nodules. There are postsurgical changes from distal pancreatectomy, suggesting perhaps the history of neoplasia; in this context metastatic disease is not excluded, and followup according to oncology guidelines with a short-term followup chest CT is recommended. 3. Nonspecific mediastinal and right hilar lymphadenopathy that could be followup with the above recommended chest CT. ABDOMEN/PELVIS: 1. Intra and extrahepatic biliary ductal dilatation with cut off of the CBD in the periampullary region; recommend further evaluation with an MR/MRCP. 2. Indeterminate 1.1 cm hypodensity in the right hepatic lobe, measuring higher than simple fluid in attenuation, this could potentially represent volume averaging within a simple cyst due to small size. Further evaluation with the above stated MRI is recommended for definite characterization. 3. Colonic diverticulosis but no evidence of acute diverticulitis. Chest CT 12/02/22 09:19 IMPRESSION: CHEST: 1. Patchy and groundglass opacities in the right lower lobe concerning for an infectious/inflammatory process, including pneumonia. A short-term followup imaging is recommended after treatment to ensure appropriate resolution. 2. Scattered sub-6 mm pulmonary nodules. There are postsurgical changes from distal pancreatectomy, suggesting perhaps the history of neoplasia; in this context metastatic disease is not excluded, and followup according to oncology guidelines with a short-term followup chest CT is recommended. 3. Nonspecific mediastinal and right hilar lymphadenopathy that could be followup with the above recommended chest CT. ABDOMEN/PELVIS: 1. Intra and extrahepatic biliary ductal dilatation with cut off of the CBD in the periampullary region; recommend further evaluation with an MR/MRCP. 2. Indeterminate 1.1 cm hypodensity in the right hepatic lobe, measuring higher than simple fluid in attenuation, this could potentially represent volume averaging within a simple cyst due to small size. Further evaluation with the above stated MRI is recommended for definite characterization. 3. Colonic diverticulosis but no evidence of acute diverticulitis. Assessment and Plan (1) Pneumonia: Status: Acute (2) Common bile duct dilatation: Status: Acute Plan 59-year-old female with history insulin-dependent type 2 diabetes, history bladder cancer on maintenance therapy and history pancreatic cancer s/p Whipple procedure in 2018 both in remission per patient following at [facility], hypertension, COPD, Behcet's disease, disease, obstructive sleep apnea on CPAP, osteoporosis, GERD, hyperlipidemia, among others to be observed for PO intolerance with biliary ductal dilitation and RLL pneumonia. #Nausea/PO intolerance- related to possible biliary duct obstruction -CT abdomen/pelvis showing intra and extrahepatic biliary ductal dilatation with cutoff of the CBD in periampullary region -Clear liquid diet. Keep NPO after midnight for MRCP am for further evaluation. Advance diet as tolerated -Appreciate GI input -ondansetron p.r.n. for nausea -pain management p.r.n. #Acute RLL pneumonia -Legionella antigen, strep pneumo antigen, and MRSA screen pending -continue IV ceftriaxone and doxycycline 100 mg b.i.d. (initiated 12/02) -guaifenesin p.r.n., tylenol prn fevers -albuterol p.r.n. 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 she has asthma, but COPD noted in multiple areas of pt chart -CT chest does not appear consistent with COPD -albuterol prn -Outpt follow up #HTN- bp reasonably controlled -continue home meds #HLD -continue statin #H/o bladder cancer on maintenance therapy and history of pancreatic cancer s/p Whipple procedure in 2018 -in remission per patient -outpatient follow-up with [facility] -Obtain most recent imaging studies from [facility] of chest and abd/pelvis given multiple pulmonary nodules and 1.1 cm hypodensity in right hepatic lobe seen on imaging studies in ED #anxiety/depression -continue home meds #GERD -continue ppi DVT prophylaxis-Lovenox Full code Time Spent With Patient Time: Total time managing care of this patient today ____ minutes. Quality Stroke Does the patient have a stroke diagnosis?: No VTE Prior VTE?: No VTE Risk Level:: Medical - moderate - high VTE Device Contraindication: Treatment Not Indicated VTE Drug Contraindication: N/A - Med Ordered
--- NOTE | 2022-12-02 13:07 | PHA.MEDREC ---
Pharmacy Consult ? Medication Reconciliation Pharmacy has completed the medication reconciliation. Pt with list at bedside. Confirmed last cimzia dose was 11/21/22. Pt with insulin patches on her person.
[2022-12-02] MEDS: cefTRIAXone sodium 1 GM in 0.9 % Sodium Chloride 50 ML IV (13:42)
[2022-12-02] MEDS: Enoxaparin Sodium 40 MG/0.4 ML SYRINGE SUBCUT (16:55)
[2022-12-02] MEDS: Doxycycline Hyclate 100 MG in 0.9 % Sodium Chloride 250 ML 166.67 MG IV (16:56)
[2022-12-02] MEDS: 0.9 % Sodium Chloride 1,000 ML 100 ML IVCONT (16:59)
[2022-12-02 18:23] LABS: Glucose, Whole Blood 190 mg/dL (60-115)
--- NOTE | 2022-12-02 19:19 | PC.NURSE ---
RN to RN report given to nurse Osullivan. Pt being transferred to room 346 and aware of plan of care. Miguel text sent to hospital transport for assistance.
[2022-12-02] MEDS: 0.9 % Sodium Chloride Flush 3 ML SYRINGE IVFLUSH (20:03)
[2022-12-02 20:11] LABS: Glucose, Whole Blood 164 mg/dL (60-115)
[2022-12-02] MEDS: Insulin Glargine,Hum.rec.anlog 100 UNIT/ML 10 ML VIAL 12 UNIT SUBCUT (22:37)
[2022-12-02] MEDS: Docusate Sodium 100 MG CAPSULE PO (22:37)
[2022-12-02] MEDS: Acetaminophen 325 MG TABLET 650 MG PO (22:54)
[2022-12-03] MEDS: 0.9 % Sodium Chloride 1,000 ML 100 ML IVCONT ×2 (02:08→20:18)
[2022-12-03] MEDS: Doxycycline Hyclate 100 MG in 0.9 % Sodium Chloride 250 ML 166.67 MG IV ×2 (02:16→15:02)
--- NOTE | 2022-12-03 02:51 | CONS_ITS ---
DATE OF SERVICE: 12/02/2022 REFERRING PHYSICIAN: FOX Diana REASON FOR CONSULTATION: Common bile duct dilation and abdominal pain. HISTORY OF PRESENT ILLNESS: The patient is a pleasant 67-year-old woman, who was admitted to the hospital after presenting to the emergency room with complaints of abdominal discomfort. She reports about 1 week of generalized abdominal discomfort with cough, fevers, and back pain. She denies any hematemesis or melena. She does have a history of distal pancreatectomy for pancreatic neuroendocrine tumor and at that time had cholecystectomy. She was evaluated with CT scanning in the emergency department, which is reviewed. This is interpreted as showing surgical changes from her distal pancreatectomy and intra and extrahepatic biliary ductal dilation, for which MRI was recommended. Liver function tests have been normal. PAST MEDICAL HISTORY: 1. Pancreatic neuroendocrine tumor as above. 2. Diabetes mellitus. 3. Bladder cancer. 4. COPD. 5. Hypertension. 6. Behcet's disease. 7. Sleep apnea, for which she uses CPAP. 8. Osteoporosis. 9. Reflux disease. 10. Hyperlipidemia. CURRENT MEDICATIONS: Her current medication list is reviewed in the chart. ALLERGIES: THERE ARE MULTIPLE ALLERGIES NOTED AND REVIEWED. FAMILY HISTORY: Noncontributory. SOCIAL HISTORY: There is no current tobacco, alcohol, or substance abuse. REVIEW OF SYSTEMS: SKIN: No pruritus. HEENT: Negative. CARDIOPULMONARY: No shortness of breath or chest pain. GASTROINTESTINAL: As above. GENITOURINARY: Negative. NEUROPSYCHIATRIC: Negative. PHYSICAL EXAMINATION: GENERAL: Shows a pleasant female, sitting comfortably in bed. VITAL SIGNS: Reviewed in the electronic medical record and are stable. SKIN: Anicteric. HEENT: Shows no scleral icterus. NECK: Without lymphadenopathy or thyromegaly. LUNGS: Clear. HEART: Shows a regular rate and rhythm. S1, S2. No murmur. ABDOMEN: Soft without focal masses or tenderness. There is no guarding or rebound. EXTREMITIES: Without edema. LABORATORY DATA: Reviewed. IMPRESSION: Abdominal pain with dilated common bile duct. There does not appear to be any evidence of biliary obstruction based on her normal liver profile and I suspect her common bile duct dilation is chronic, having been related to postcholecystectomy state. I would recommend monitoring liver functions and await the results of MRI imaging. She has been started on a proton pump inhibitor, which should treat any acid related issues as a cause of her symptoms. Thanks for asking me to see her. I will follow her in the hospital with you. MD GABY Webb/PACHECO / [phone]
[2022-12-03] MEDS: Morphine Sulfate 4 MG/ML CARTRIDGE 2 MG IVPUSH (03:26)
[2022-12-03 03:46] VITALS: BP 128/88; PULSE 66; RESP 18; TEMP 36.1; O2SAT 95
[2022-12-03] MEDS: Omeprazole 40 MG CAPSULE.DR PO (06:23)
[2022-12-03 06:47] LABS: MANUAL DIFF FLAG NO
[2022-12-03 07:07] LABS: Anion Gap 13 (12-20); Blood Urea Nitrogen 7 mg/dL (9-16); Calcium 8.3 mg/dL (8.4-10.2); Carbon Dioxide 26 mmol/L (22-29); Chloride 106 mmol/L (96-108); Creatinine Clr Calc Pharmacy 68.4; Estimated Glomerular Filt Rate > 60; Glucose Random 135 mg/dL (60-115); Potassium 3.9 mmol/L (3.3-5.1); Sodium 141 mmol/L (135-145)
[2022-12-03 07:44] LABS: Basophils Percent Auto 0.4 % (0-2); Eosinophils Absolute Auto 0.1 X10*3/uL (0.0-0.4); Eosinophils Percent Auto 1.2 % (0-4); Hematocrit 39.7 % (37.0-47.0); Hemoglobin 13.4 g/dl (12.0-16.0); Imm Gran Abs Auto 0.02 X10*3/uL (0.00-0.03); Imm Gran Pct Auto 0.3 % (0.0-0.4); Lymphocytes Absolute Auto 3.1 X10*3/uL (1.2-4.9); Lymphocytes Percent Auto 40.9 % (20-40); Mean Corpuscular HGB Conc 33.8 g/dl (31.0-35.0); Mean Corpuscular Hemoglobin 29.6 pg (27.0-33.0); Mean Corpuscular Volume 87.6 fL (80.0-98.0); Mean Platelet Volume 10.1 fL (9.4-12.3); Monocytes Absolute Auto 0.9 X10*3/uL (0.1-1.2); Monocytes Percent Auto 11.5 % (2-11); Neutrophils Absolute Auto 3.5 x10*3/uL (2.0-8.3); Neutrophils Percent Auto 45.7 % (45-73); Platelet Count 316 X10*3/uL (160-400); Red Blood Count 4.53 X10*6/uL (4.20-5.50); Red Cell Distribution Width 13.8 % (11.0-16.0); White Blood Count 7.6 X10*3/uL (4.8-10.8)
[2022-12-03 07:58] LABS: Glucose, Whole Blood 161 mg/dL (60-115)
[2022-12-03 08:00] VITALS: BP 170/88; PULSE 66; RESP 18; TEMP 36.4; O2SAT 92
[2022-12-03] MEDS: Atorvastatin Calcium 20 MG TABLET PO (10:14)
[2022-12-03] MEDS: lisinopriL 10 MG TABLET PO (10:14)
[2022-12-03] MEDS: Cholecalciferol (Vitamin D3) 25 MCG TABLET PO (10:15)
[2022-12-03] MEDS: Acetaminophen 325 MG TABLET 650 MG PO (10:15)
[2022-12-03] MEDS: Docusate Sodium 100 MG CAPSULE PO (10:15)
[2022-12-03] MEDS: Multivitamin TABLET 1 TAB PO (10:16)
[2022-12-03] MEDS: ondansetron HCL 4 MG/2 ML VIAL IVPUSH (10:16)
[2022-12-03] MEDS: 0.9 % Sodium Chloride Flush 3 ML SYRINGE IVFLUSH ×2 (10:17→15:03)
--- NOTE | 2022-12-03 10:53 | MHC.CM.PN ---
met with pt who lives alone pt had no previous servceis ,is covid vax x 4 has won ride home dc plan home no servceis
--- NOTE | 2022-12-03 11:07 | HO.PM.IMPN ---
Subjective Subjective Date of Service: 12/03/22 Interval History: Feels better overall but complain of headaches and LE pain No Abd pain coughing but no SOB Pending MRCP no other overnight events Review of Systems Review of Systems: Yes all other systems are reviewed and are negative Physical Exam Vital Signs: Vital Signs: Last Vital Signs Temp 97.5 F 12/03/22 08:00 Pulse 66 12/03/22 08:00 Resp 18 12/03/22 08:00 BP 170/88 H 12/03/22 08:00 Pulse Ox 92 12/03/22 08:00 O2 Del Method 12/03/22 08:00 BMI result Body Mass Index 29.7 Const: Other: Constitutional : Awake, interactive, not in distress Neck : Normal inspection, Supple Cardiovascular : RRR, no JVP, no lower extremity edema Respiratory : good bilateral air entry, RLL crackles, no wheezes Gastrointestinal: soft, lax, Normal bowel sounds, Non tender Skin : Warm, Dry Neurological : Alert & oriented x3, No focal deficit Objective Data Active Medications Acetaminophen (Acetaminophen 325 Mg Tablet) 650 mg PO Q6H PRN PRN Reason: Pain, Mild (Pain Scale 1-3) Last Admin: 12/03/22 10:15 Dose: 650 mg Documented By: SHARONA Albuterol Sulfate (Albuterol Sulfate (0.083%) 2.5 Mg/3 Ml Vial.Neb) 2.5 mg INHALE Q4H PRN PRN Reason: Shortness of Breath/Wheezing Atorvastatin Calcium (Atorvastatin Calcium 20 Mg Tablet) 20 mg PO DAILY [facility] Last Admin: 12/03/22 10:14 Dose: 20 mg Documented By: SHARONA Cyclobenzaprine HCl (Cyclobenzaprine Hcl 5 Mg Tablet) 5 mg PO TID PRN PRN Reason: Muscle Spasm Docusate Sodium (Docusate Sodium 100 Mg Capsule) 100 mg PO BID [facility] Last Admin: 12/03/22 10:15 Dose: 100 mg Documented By: SHARONA Enoxaparin Sodium (Enoxaparin Sodium 40 Mg/0.4 Ml Syringe) 40 mg SUBCUT Q24H [facility] Last Admin: 12/02/22 16:55 Dose: 40 mg Documented By: TAN Fluticasone Propionate (Fluticasone Propionate Nasal 16 Gm [place]) 2 spray NOSTRIL-B DAILY [facility] Last Admin: 12/03/22 10:17 Dose: Not Given Documented By: SHARONA Non-Admin Reason: Patient Refused Glucose (Glucose Gel 15 Gm Gel..Gram.) 15 gm PO Q15M PRN; Protocol PRN Reason: per Hypoglycemia Standing Ord. Guaifenesin (Guaifenesin 200 Mg/10 Ml 10 Ml Liquid) 10 ml PO Q4H PRN PRN Reason: Cough Ceftriaxone Sodium 1 gm/ (Sodium Chloride) 50 mls @ 100 mls/hr IV Q24H MACY Sodium Chloride (Ns) 1,000 mls @ 100 mls/hr IVCONT .Q10H [facility] Last Admin: 12/03/22 02:08 Dose: 100 mls/hr Documented By: JEANNETTE Doxycycline Hyclate 100 mg/ (Sodium Chloride) 250 mls @ 166.67 mls/hr IV Q12H [facility] Last Infusion: 12/03/22 03:55 Dose: 0 mls/hr Documented By: JEANNETTE Dextrose (D10) 250 mls @ 750 mls/hr IV Q15M PRN; Protocol PRN Reason: per Hypoglycemia Standing Ord. Insulin Glargine (Insulin Glargine,Hum.Rec.Anlog 100 Unit/Ml 10 Ml Vial) 12 unit SUBCUT BEDTIME [facility] Last Admin: 12/02/22 22:37 Dose: 12 unit Documented By: JEANNETTE Insulin Human Lispro (Insulin Lispro 100 Unit/Ml 3 Ml Vial) 0 unit SUBCUT TIDWM [facility] Last Admin: 12/03/22 10:19 Dose: Not Given Documented By: SHARONA Non-Admin Reason: pt's used own insulin pump Insulin Pump (Subcutaneous Insulin Pump) 1 each SUBCUT QIDACHS [facility]; Protocol Last Admin: 12/03/22 10:20 Dose: Not Given Documented By: SHARONA Non-Admin Reason: pt used own insulin pump Ketorolac Tromethamine (Ketorolac Tromethamine 30 Mg/Ml Vial) 15 mg IVPUSH Q6H PRN PRN Reason: Pain, Mild (Pain Scale 1-3) Stop: 12/07/22 13:50 Lisinopril (Lisinopril 10 Mg Tablet) 10 mg PO DAILY [facility]; Protocol Last Admin: 12/03/22 10:14 Dose: 10 mg Documented By: SHARONA Lorazepam (Lorazepam 1 Mg Tablet) 1 mg PO DAILY PRN PRN Reason: anxiety Morphine Sulfate (Morphine Sulfate 4 Mg/Ml Cartridge) 2 mg IVPUSH Q4H PRN; Protocol PRN Reason: Pain, Severe (Pain Scale 7-10) Last Admin: 12/03/22 03:26 Dose: 2 mg Documented By: JEANNETTE Multivitamins/Vitamin C (Multivitamin Tablet) 1 tab PO DAILY [facility] Last Admin: 12/03/22 10:16 Dose: 1 tab Documented By: SHARONA Omeprazole (Omeprazole 40 Mg Capsule.Dr) 40 mg PO DAILY@0630 [facility] Last Admin: 12/03/22 06:23 Dose: 40 mg Documented By: JEANNETTE Ondansetron HCl (Ondansetron Hcl 4 Mg/2 Ml Vial) 4 mg IVPUSH Q8H PRN PRN Reason: Nausea and Vomiting Last Admin: 12/03/22 10:16 Dose: 4 mg Documented By: SHARONA Sodium Chloride (0.9 % Sodium Chloride Flush 3 Ml Syringe) 3 ml IVFLUSH [facility] Last Admin: 12/03/22 10:17 Dose: 3 ml Documented By: SHARONA Tizanidine HCl (Tizanidine Hcl 4 Mg Tablet) 2 mg PO BID PRN PRN Reason: Muscle Spasm Vitamin D (Cholecalciferol (Vitamin D3) 25 Mcg Tablet) 25 mcg PO DAILY [facility] Last Admin: 12/03/22 10:15 Dose: 25 mcg Documented By: SHARONA Labs 12/03/22 05:41 12/03/22 05:41 Labs: Laboratory Results - last 24 hr 12/02/22 12/02/22 12/02/22 12:31 18:14 20:00 MCV MCH MCHC RDW Plt Count MPV Immature Gran % (Auto) Neut % (Auto) Lymph % (Auto) [place] % (Auto) Eos % (Auto) Baso % (Auto) Lymph # (Auto) [place] # (Auto) Eos # (Auto) Baso # (Auto) Abs Immat Gran (auto) Absolute Neuts (auto) Absolute Nucleated RBC Nucleated RBC % (auto) Anion Gap Estim Creat Clear Calc Estimated GFR POC Glucose 190 H 164 H Random Glucose Lactic Acid 0.6 Calcium 12/03/22 12/03/22 12/03/22 05:41 05:41 07:42 MCV 87.6 MCH 29.6 MCHC 33.8 RDW 13.8 Plt Count 316 MPV 10.1 Immature Gran % (Auto) 0.3 Neut % (Auto) 45.7 Lymph % (Auto) 40.9 H [place] % (Auto) 11.5 H Eos % (Auto) 1.2 Baso % (Auto) 0.4 Lymph # (Auto) 3.1 [place] # (Auto) 0.9 Eos # (Auto) 0.1 Baso # (Auto) 0.0 Abs Immat Gran (auto) 0.02 Absolute Neuts (auto) 3.5 Absolute Nucleated RBC 0.000 Nucleated RBC % (auto) 0.0 Anion Gap 13 Estim Creat Clear Calc 68.4 Estimated GFR > 60 POC Glucose 161 H Random Glucose 135 H Lactic Acid Calcium 8.3 L Assessment and Plan (1) Common bile duct dilatation: Status: Acute (2) Pneumonia: Status: Acute Plan 59-year-old female with history insulin-dependent type 2 diabetes, history bladder cancer on maintenance therapy and history pancreatic cancer s/p Whipple procedure in 2018 both in remission per patient following at [facility], hypertension, COPD, Behcet's disease, disease, obstructive sleep apnea on CPAP, osteoporosis, GERD, hyperlipidemia, among others to be observed for PO intolerance with biliary ductal dilitation and RLL pneumonia. # Nausea/PO intolerance Likely 2/2 RLL pneumonia improving Zofran as needed advance diet # Dilated CBD CT abdomen/pelvis showing intra and extrahepatic biliary ductal dilatation with cutoff of the CBD in periampullary region MRCP negative for any acute findings likely a result of old surgery with normal LFT GI following # Acute RLL pneumonia pending Legionella antigen, strep pneumo antigen, and MRSA screen IV ceftriaxone and doxycycline 100 mg b.i.d. (initiated 12/02) guaifenesin p.r.n tylenol prn fevers albuterol p.r.n. # Multiple sub 6mm pulmonary nodules seen on chest CT Has annual scans with [facility] given history malignancy Outpt follow up advised smoking cessation # insulin-dependent type 2 diabetes without hyperglycemia Lantus insulin continue use of insulin pump SSI diabetic diet #Mild intermittent COPD without acute exacerbation albuterol prn Outpt follow up #HTN controlled continue home meds #HLD continue statin #H/o bladder cancer on maintenance therapy and history of pancreatic cancer s/p Whipple procedure in 2018 in remission per patient outpatient follow-up with [facility] #anxiety/depression continue home meds #GERD continue ppi DVT prophylaxis-Lovenox Full code Patient will need overnight hospital stay pending final blood cultures , GI eval and safe discharge plan Time Spent With Patient Time: Total time managing care of this patient today ____ minutes. Quality Stroke Does the patient have a stroke diagnosis?: No VTE Prior VTE?: No VTE Risk Level:: Medical - moderate - high VTE Device Contraindication: Treatment Not Indicated VTE Drug Contraindication: N/A - Med Ordered
[2022-12-03] MEDS: Cyclobenzaprine HCl 10 MG TABLET PO (11:17)
[2022-12-03 11:44] LABS: Glucose, Whole Blood 202 mg/dL (60-115)
[2022-12-03] MEDS: Enoxaparin Sodium 40 MG/0.4 ML SYRINGE SUBCUT (13:17)
[2022-12-03] MEDS: Insulin Lispro 100 UNIT/ML 3 ML VIAL SUBCUT ×3 (13:18→20:30)
[2022-12-03] MEDS: cefTRIAXone sodium 1 GM in 0.9 % Sodium Chloride 50 ML IV (13:18)
[2022-12-03 16:00] VITALS: BP 145/81; PULSE 57; RESP 18; TEMP 36.6; O2SAT 93
[2022-12-03 16:28] LABS: Glucose, Whole Blood 165 mg/dL (60-115)
[2022-12-03 19:55] VITALS: BP 139/74; PULSE 59; RESP 16; TEMP 36.2; O2SAT 95
[2022-12-03 20:20] LABS: Glucose, Whole Blood 257 mg/dL (60-115)
[2022-12-03] MEDS: Insulin Glargine,Hum.rec.anlog 100 UNIT/ML 10 ML VIAL 12 UNIT SUBCUT (20:30)
[2022-12-04] MEDS: Acetaminophen 325 MG TABLET 650 MG PO (00:06)
[2022-12-04] MEDS: Cyclobenzaprine HCl 5 MG TABLET PO (00:06)
[2022-12-04] MEDS: guaiFENesin 200 MG/10 ML 10 ML LIQUID PO (00:06)
[2022-12-04] MEDS: Doxycycline Hyclate 100 MG in 0.9 % Sodium Chloride 250 ML 166.67 MG IV (02:16)
[2022-12-04 03:19] VITALS: BP 140/80; PULSE 50; RESP 16; TEMP 36.3; O2SAT 99
[2022-12-04] MEDS: Omeprazole 40 MG CAPSULE.DR PO (06:04)
[2022-12-04 06:20] LABS: Anion Gap 12 (12-20); Blood Urea Nitrogen 9 mg/dL (9-16); Calcium 8.3 mg/dL (8.4-10.2); Carbon Dioxide 26 mmol/L (22-29); Chloride 106 mmol/L (96-108); Creatinine Clr Calc Pharmacy 76.8; Estimated Glomerular Filt Rate > 60; Glucose Random 139 mg/dL (60-115); Potassium 4.1 mmol/L (3.3-5.1); Sodium 140 mmol/L (135-145)
[2022-12-04 06:24] LABS: Hematocrit 37.2 % (37.0-47.0); Hemoglobin 12.5 g/dl (12.0-16.0); Mean Corpuscular HGB Conc 33.6 g/dl (31.0-35.0); Mean Corpuscular Hemoglobin 29.7 pg (27.0-33.0); Mean Corpuscular Volume 88.4 fL (80.0-98.0); Mean Platelet Volume 10.1 fL (9.4-12.3); Platelet Count 286 X10*3/uL (160-400); Red Blood Count 4.21 X10*6/uL (4.20-5.50); Red Cell Distribution Width 13.7 % (11.0-16.0)
[2022-12-04 07:55] LABS: Glucose, Whole Blood 136 mg/dL (60-115)
[2022-12-04 07:57] VITALS: BP 174/82; PULSE 56; RESP 18; TEMP 36.6; O2SAT 93
[2022-12-04] MEDS: 0.9 % Sodium Chloride Flush 3 ML SYRINGE IVFLUSH (08:42)
[2022-12-04] MEDS: 0.9 % Sodium Chloride 1,000 ML 100 ML IVCONT (08:42)
[2022-12-04] MEDS: Atorvastatin Calcium 20 MG TABLET PO (08:43)
[2022-12-04] MEDS: Multivitamin TABLET 1 TAB PO (08:44)
[2022-12-04] MEDS: Fluticasone Propionate Nasal 16 GM SPRAY 2 SPRAY NOSTRIL-B (08:44)
[2022-12-04] MEDS: Docusate Sodium 100 MG CAPSULE PO (08:44)
[2022-12-04] MEDS: Cholecalciferol (Vitamin D3) 25 MCG TABLET PO (08:44)
[2022-12-04] MEDS: lisinopriL 10 MG TABLET PO (08:44)
--- NOTE | 2022-12-04 11:16 | P.DS_ITS ---
DS: Providers Provider Date of Service: 12/04/22 Date of admission: 12/02/22 13:51 Primary care physician: Gloria Villarreal MD Consults: 12/02/22 14:22 Consult to Gastroenterology Routine Consulting Provider: Arron Thapa Reason for consultation: epigastric pain, CBD dilitation DS: Diagnosis Discharge Diagnosis (1) Common bile duct dilatation: Status: Acute (2) Pneumonia: Status: Acute DS: Summary Hospital Course Hospital Course: from initial hpi: 59-year-old female with history insulin-dependent type 2 diabetes, history bladder cancer on maintenance therapy and history pancreatic cancer s/p Whipple procedure in 2018 both in remission per patient following at [facility], hypertension, COPD, Behcet's disease, disease, obstructive sleep apnea on CPAP, osteoporosis, GERD, hyperlipidemia, among others presented to the ED earlier today for evaluation of cough, fevers, and abdominal is comfort.? States symptoms began about 1 week ago.? States there is also bilateral lower extremity discomfort radiating to the upper back associated with the abdominal pain, which is primarily epigastric. Also endorsing occasional headaches.? There has been a ssociated nausea and vomiting and decreased p.o. intake.? Denies sick contacts.? No sore throat, nasal congestion, dysphagia, vomiting, diarrhea, shortness of breath, wheezing, chest pain. On arrival, vital signs stable.? Renal function baseline, electrolyte levels normal.? Urinalysis unremarkable except for 2+ leukocytes.? Negative for influenza, COVID-19, and RSV.? Chest CT with right lower lobe patchy/ground- glass opacities concerning for infectious versus inflammatory process including pneumonia as well as scattered tiny pulmonary nodules.? Given history of malignancy, short-term follow-up with chest CT is recommended as metastatic disease is not excluded given clinical picture.? There is also nonspecific mediastinal and right hilar lymphadenopathy that should be followed up with the above-mentioned recommended chest CT.? CT of the abdomen/pelvis shows intra and extrahepatic biliary ductal dilatation with cutoff of CBD in the periampullary region, recommend follow-up with MRCP. In ED, given IV ceftriaxone as well as fentanyl, ketorolac, Tylenol for pain management. She denies etoh use or illicit drug use or marijuana use.? Does endorse smoking 0.5-0.75 ppd cigarettes. hospital course: Patient was admitted for nausea vomiting. This resolved. Patient was able to tolerate p.o.. Imaging with right lower lobe opacities likely some aspiration pneumonitis, doubt bacterial pneumonia. Antibiotics discontinued. Dilated CBD is noted on MRCP but likely to be postsurgical changes. For diabetes she was continued on basal bolus insulin. For COPD she was given p.r.n. albuterol. For hypertension should continue antihypertensives. Hyperlipidemia is continue statin. For history of pancreatic and bladder CA she will follow-up at [facility]. For mood disorder she was continued on lorazepam. For GERD she was continued on PPI. Patient is feeling better will be discharged home. Time Spent with Patient Time attestation: Total time managing care of this patient today ____ minutes. Discharge coordination time: Greater than 30 minutes Quality: Safe Use of Opioids Does Pt have an Active Cancer Diagnosis on the Problem List?: Yes Opioid Measure Date for [facility] Report: 11/04/22 Opioid Measure Time for [facility] Report: 11:16 Quality: Stroke Does the patient have a stroke diagnosis?: No Physical Exam Vital Signs: Vital Signs: Last Vital Signs Temp 97.9 F 12/04/22 07:57 Pulse 56 12/04/22 07:57 Resp 18 12/04/22 07:57 BP 174/82 H 12/04/22 07:57 Pulse Ox 93 12/04/22 07:57 O2 Del Method 12/04/22 07:57 BMI result Body Mass Index 29.7 General: AO X 3, no acute distress Resp: CTA bilateral, no accessory muscles used CVS: S1,S2,RRR GI: soft, non tender, non distended Neuro: motor grossly intact, alert Psych: appropriate affect, appropriate insight DS: Data Data Completed and Pending Labs on day of discharge: Laboratory Results - last 24 hr 12/03/22 12/03/22 12/03/22 11:41 16:11 20:01 WBC RBC Hgb Hct MCV MCH MCHC RDW Plt Count MPV Absolute Nucleated RBC Nucleated RBC % (auto) Sodium Potassium Chloride Carbon Dioxide Anion Gap BUN Creatinine Estim Creat Clear Calc Estimated GFR POC Glucose 202 H 165 H 257 H Random Glucose Calcium 12/04/22 12/04/22 12/04/22 04:59 04:59 07:41 WBC 9.0 RBC 4.21 Hgb 12.5 Hct 37.2 MCV 88.4 MCH 29.7 MCHC 33.6 RDW 13.7 Plt Count 286 MPV 10.1 Absolute Nucleated RBC 0.000 Nucleated RBC % (auto) 0.0 Sodium 140 Potassium 4.1 Chloride 106 Carbon Dioxide 26 Anion Gap 12 BUN 9 Creatinine 0.66 Estim Creat Clear Calc 76.8 Estimated GFR > 60 POC Glucose 136 H Random Glucose 139 H Calcium 8.3 L Preliminary micro results at discharge 12/02/22 13:16 Blood Culture - Preliminary Blood - Venous No growth after 24 hours. 12/02/22 12:31 Blood Culture - Preliminary Blood - Venous No growth after 24 hours. Discharge Plan Discharge Anticipated Discharge Date/Time: 12/04/22 11:13 Patient Disposition: Home, Self-Care Discharge Diagnosis: abd pain Referrals: Po,Gloria Lynn MD [Primary Care Provider] - 1 Week Discharge Medications: Continued (DME) blood-glucose meter [OneTouch Verio Flex Start] Kit See Rx Instructions .ROUTE .MEDSUPPLY Qty: 1 0RF Rx Instructions: As directed fluticasone propionate [Flonase Allergy Relief] 50 mcg/actuation spray,suspension 2 spray intranasal DAILY Qty: 16 3RF Rx Instructions: administer into each nostril (DME) Dexcom G6 Sensor Device See Rx Instructions .Route Rx Instructions: As directed (DME) Dexcom G5 Transmitter Device See Rx Instructions .Route Rx Instructions: As directed (DME) pen needle, diabetic 32 gauge x 5/32 needle See Rx Instructions subcut .MEDSUPPLY Qty: 450 11RF Rx Instructions: 4x daily (DME) OneTouch Verio test strips Strip See Rx Instructions .ROUTE .COMPLEX Qty: 100 11RF Dose Instruction: TEST 3 TIMES A DAY Rx Instructions: TEST 3 TIMES A DAY insulin lispro [Humalog U-100 Insulin] 100 unit/mL solution See Rx Instructions subcut USEASDIRECTD Qty: 10 4RF Rx Instructions: 1 unit for small meal, 2 units for medium-size meal and 3 units for large meal subcutaneously use as directed; atorvastatin 20 mg tablet 20 mg PO DAILY Qty: 90 2RF tizanidine 2 mg Tablet 2 mg PO BID PRN (Reason: Muscle Spasm) omeprazole 40 mg Capsule,Delayed Release(Dr/Ec) 40 mg PO DAILY@0630 Baqsimi 3 mg/actuation spray,non-aerosol 3 mg intranasal ONCE PRN (Reason: Hypoglycemia) (DME) CeQur Simplicity 2 unit Device MISCELLANEOUS multivitamin Tablet 1 tab PO DAILY omega-3 fatty acids [Fish Oil Concentrate] 1,000 mg capsule 1,000 mg PO DAILY Cimzia 400 mg/2 mL (200 mg/mL x 2) syringe kit 200 mg subcut Q4W albuterol sulfate 90 mcg/actuation HFA aerosol inhaler 1 inh inhalation QID PRN (Reason: shortness of breath or wheezing) Qty: 6.7 1RF (DME) blood pressure monitor [Blood Pressure Kit] Kit See Rx Instructions .ROUTE .MEDSUPPLY Qty: 1 0RF Rx Instructions: As directed lorazepam 1 mg tablet 1 mg PO DAILY PRN (Reason: anxiety) 30 Days Qty: 30 2RF lisinopril 10 mg tablet 10 mg PO DAILY Qty: 30 11RF (DME) blood-glucose meter Misc See Rx Instructions .ROUTE DIRECTED Qty: 1 Rx Instructions: As directed docusate sodium 100 mg capsule 100 mg PO BID (DME) CeQur Simplicity 2 unit device See Rx Instructions .ROUTE .MEDSUPPLY Qty: 10 Rx Instructions: As directed (DME) CeQur Simplicity Firer Kiln Misc See Rx Instructions .ROUTE .MEDSUPPLY Qty: 1 Rx Instructions: As directed cholecalciferol (vitamin D3) 25 mcg (1,000 unit) capsule 25 mcg PO DAILY Lantus Solostar U-100 Insulin 100 unit/mL (3 mL) insulin pen 16 unit subcut BEDTIME Discharge Orders: Discharge Order (Routine); Ordered 12/04/22 Ordered By: Vijay Orellana Diet: Advance to usual diet Activity on Discharge: As tolerated Stand Alone Forms: Patient Portal Discharge page Care Plan Goals: recovery Health Concerns: n/v Plan of Treatment: resolved Assessment: see above
--- NOTE | 2022-12-04 11:33 | MHC.CM.PN ---
pt dcd home no skilled servcies ordered by
[2022-12-04 11:43] LABS: Glucose, Whole Blood 192 mg/dL (60-115)
== END 2022-12-04 12:29 | disposition home or self-care (01) ==
LOC: HO.ED 12:07 → HO.EDOVER 14:23 → HO.S3 14:44
PROVIDERS: Student in an Organized Health Care Education/Training Program; Admitting Provider Physician Assistant; Emergency Provider Student in an Organized Health Care Education/Training Program; PCP Internal Medicine; Visit Provider Internal Medicine
DX: R10.9 Unspecified abdominal pain (principal); J18.1 Lobar pneumonia, unspecified organism; K83.8 Other specified diseases of biliary tract; Z20.822 Contact with and (suspected) exposure to COVID-19; Z20.828 Contact with and (suspected) exposure to other viral communicable diseases; E11.9 Type 2 diabetes mellitus without complications; I10 Essential (primary) hypertension; E78.5 Hyperlipidemia, unspecified; M35.2 Behcet's disease; G47.33 Obstructive sleep apnea (adult) (pediatric); E04.1 Nontoxic single thyroid nodule; R91.8 Other nonspecific abnormal finding of lung field; F17.210 Nicotine dependence, cigarettes, uncomplicated; Z99.89 Dependence on other enabling machines and devices; Z85.07 Personal history of malignant neoplasm of pancreas; Z85.51 Personal history of malignant neoplasm of bladder; Z96.41 Presence of insulin pump (external) (internal); Z79.4 Long term (current) use of insulin; Z79.899 Other long term (current) drug therapy; Z79.02 Long term (current) use of antithrombotics/antiplatelets
CPT/HCPCS: 0241U; 36415; 71260; 74177; 74181; 80048; 80053; 81001; 82947; 83605; 83690; 85025; 85027; 87040; 93005; 94660; 96361; 96365; 96366; 96367; 96372; 96375; 96376; 99221; 99285; J0696; J1650; J1885; J2270; J2405; J3010; Q9967

== ENCOUNTER 2022-12-09 12:38 | Outpatient (REF) | payer MEDICARE, OTHER, SELFPAY ==
--- NOTE | ~2022-12-09 | US_ITS ---
EXAMINATION: US EXTRACRANIAL CAROTID DUPLEX, BILATERAL CLINICAL INFORMATION: Urticaria. History of diabetes mellitus, hypertension and hyperlipidemia COMPARISON: None available. TECHNIQUE: Real-time ultrasound and Doppler techniques (integrating B-mode 2-D vascular images, Doppler spectral analysis and color-flow Doppler imaging) were utilized to interrogate the extracranial carotid arteries, the vertebral arteries and proximal subclavian arteries bilaterally. The degree of stenosis is determined by criteria similar to NASCET. FINDINGS: Right Side: 1. There is no significant atherosclerotic plaque seen in the bifurcation/proximal ICA region. 2. The common carotid artery PSV proximally is 102 cm/s and distally 65.1 cm/s. 3. The proximal internal carotid artery velocities are 51.5 cm/s systolic and 14.5 cm/s diastolic. 4. The proximal external carotid artery PSV is 94.8 cm/s. 5. The vertebral artery shows antegrade flow. 6. The subclavian artery waveforms are normal. Left Side: 1. There is no significant atherosclerotic plaque seen in the bifurcation/proximal ICA region. 2. The common carotid artery PSV proximally is 95.1 cm/s and distally 76.2 cm/s. 3. The proximal internal carotid artery velocities are 30.5 cm/s systolic and 10.2 cm/s diastolic. 4. The proximal external carotid artery PSV is 76.3 cm/s. 5. The vertebral artery shows the great flow. 6. The subclavian artery waveforms are normal. US/US carotid duplex BI IMPRESSION: 1. RIGHT: Normal right internal carotid artery without atherosclerotic plaque or hemodynamically significant stenosis. 2. LEFT: Normal left internal carotid artery without atherosclerotic plaque or hemodynamically significant stenosis.
== END 2022-12-09 12:39 | disposition home or self-care (01) ==
LOC: HO.HMGCX 12:38
PROVIDERS: PCP Internal Medicine; Visit Provider Internal Medicine
DX: I65.23 Occlusion and stenosis of bilateral carotid arteries (principal); L50.9 Urticaria, unspecified
CPT/HCPCS: 93880

== ENCOUNTER → 2022-12-26 07:37 | Outpatient (BNVA) | payer MEDICARE, OTHER, SELFPAY | PROVIDERS: PCP Internal Medicine; Visit Provider Nurse Practitioner Family | DX: G47.33 Obstructive sleep apnea (adult) (pediatric) (principal); R40.0 Somnolence | CPT/HCPCS: 99202 ==

== ENCOUNTER → 2023-01-02 09:35 | Outpatient (REF) | payer MEDICARE, OTHER, SELFPAY | LOC: HO.SL 09:35 | PROVIDERS: PCP Internal Medicine; Visit Provider Nurse Practitioner Family | DX: G47.33 Obstructive sleep apnea (adult) (pediatric) (principal); R40.0 Somnolence | CPT/HCPCS: 95806 ==

== ENCOUNTER 2023-01-10 08:12 | Outpatient (REF) | payer MEDICARE, OTHER, SELFPAY ==
--- NOTE | ~2023-01-10 | US_ITS ---
EXAMINATION: US THYROID CLINICAL INFORMATION: Nontoxic multinodular goiter. COMPARISON: Thyroid ultrasound 02/21/2022 and 02/05/2021. Ultrasound-guided thyroid biopsy 03/08/2021. TECHNIQUE: Linear transducer grayscale and color Doppler examination with attention to the region of the thyroid. FINDINGS: SIZE: Measurements of the thyroid lobes and nodules are given in sagittal, anteroposterior and transverse dimensions respectively. Right Thyroid Lobe: 4.6 x 1.9 x 1.5 cm, volume 6.7 mL. Previously 4.5 x 1.7 x 1.6 cm, volume 6.4 mL. Parenchyma: The gland echotexture is homogeneous. Thyroid vascularity is normal. Left Thyroid Lobe: 4.3 x 2.3 x 1.7 cm, volume 8.5 mL. Previously 4.4 x 1.7 x 1.9 cm, volume 7.4 mL. Parenchyma: The gland echotexture is homogeneous. Thyroid vascularity is normal. Isthmus: 0.5 cm in maximum AP dimension. Previously 0.4 cm. Estimated total number of nodules greater than or equal to 1 cm: 2. Sewer Maintenance Supervisor nodules are described as follows: 1. Location: Right mid pole. Size: 0.8 x 0.8 x 0.8 cm, volume 0.28 mL. Previously: 1.0 x 0.7 x 1.0 cm, volume 0.39 mL. Nodule characteristics: Composition: Mixed cystic and solid (1). Echogenicity: Isoechoic (1). Shape: Not taller than wide (0). Margins: Smooth (0). Echogenic Foci: Punctate echogenic foci (3). ACR TI-RADS total points: 5 Previous: 5 ACR TI-RADS category: 4 Previous: 4 Significant change in size (>/= 20% in 2 dimensions and minimal increase of 2 mm or 50% or greater increase in volume): No 2. Location: Left mid pole. Size: 1.6 x 0.9 x 1.1 cm, volume 0.84 mL. Previously: 1.5 x 0.9 x 1.1 cm, volume 0.80 mL. Nodule characteristics: Composition: Mixed cystic and solid (1). Echogenicity: Hypoechoic (2). Shape: Not taller than wide (0). Margins: Smooth (0). Echogenic Foci: No definite calcification appreciated over punctate echogenic foci (0) ACR TI-RADS total points: 3 Previous: 3 ACR TI-RADS category: 3 Previous: 3 Significant change in size (>/= 20% in 2 dimensions and minimal increase of 2 mm or 50% or greater increase in volume): No 3. Location: Left mid pole. Size: 1.1 x 0.5 x 0.9 cm, volume 0.27 mL. Previously: 1.1 x 0.6 x 1.0 cm, volume 0.31 mL. Composition: Mixed cystic and solid (1). Echogenicity: Hypoechoic (2). Shape: Not taller than wide (0). Margins: Smooth (0). Echogenic Foci: None (0). ACR TI-RADS total points: 3 Previous: 0 ACR TI-RADS category: 3 Previous: 1 Significant change in size (>/= 20% in 2 dimensions and minimal increase of 2 mm or 50% or greater increase in volume): No Change in features: Yes, appears less spongiform on today's exam Change in ACR TI-RADS risk category: Yes 4. Location: Left lower pole. Size: 0.4 x 0.3 x 0.5 cm, volume 0.03 mL. Previously: 0.4 x 0.4 x 0.4 cm, volume 0.03 mL. Nodule characteristics: Composition: Cystic(0). ACR TI-RADS total points: 0 Previous: 0 ACR TI-RADS category: 1 Previous: 1 5. Location: Left lower pole. Size: 0.5 x 0.2 x 0.4 cm, volume 0.02 mL. Previously: Not seen previously. Nodule characteristics: Composition: Spongiform (0). ACR TI-RADS total points: 0 ACR TI-RADS category: 1 NODES: No lymphadenopathy is seen in the tissue surrounding the thyroid gland. US/US thyroid IMPRESSION: A 0.8 cm TR 4 right thyroid nodule is not significantly changed in size. This was previously sampled. Recommend correlation with prior pathology. A 1.6 cm TR 3 left midpole thyroid nodule is not significantly changed in size and meets criteria for continued surveillance. Remainder of thyroid nodule does not meet criteria for follow-up. ACR TI-RADS RECOMMENDATION REFERENCE: Ultrasound-guided fine-needle aspiration, followup ultrasound, no further follow up. * TR1 (0 point) and TR2 (2 points): No FNA or follow up * TR3 (3 points): FNA if more than or equal to 2.5 cm in maximum dimension, followup ultrasound in 1, 3 and 5 years if 1.5 to 2.4 cm in maximum dimension. * TR4 (4-6 points): FNA if more than or equal to 1.5 cm in maximum dimension, followup ultrasound in 1, 2, 3 and 5 years if 1 to 1.4 cm in maximum dimension. * TR5 (more than or equal to 7 points): FNA if more than or equal to 1 cm in maximum dimension, followup ultrasound every year for 5 years if 0.5 to 0.9 cm in maximum dimension. * TR3, TR4 or TR5 nodules that are below the size threshold for follow up receive no follow up.
== END 2023-01-10 08:13 | disposition home or self-care (01) ==
LOC: HO.HMGCX 08:12
PROVIDERS: PCP Internal Medicine; Visit Provider Internal Medicine Endocrinology, Diabetes & Metabolism
DX: E04.2 Nontoxic multinodular goiter (principal)
CPT/HCPCS: 76536

== ENCOUNTER → 2023-02-26 08:48 | Outpatient (BNVA) | payer MEDICARE, OTHER, SELFPAY | PROVIDERS: PCP Internal Medicine; Visit Provider Internal Medicine Endocrinology, Diabetes & Metabolism | DX: E13.9 Other specified diabetes mellitus without complications (principal); S36.209S Unspecified injury of unspecified part of pancreas, sequela; E04.2 Nontoxic multinodular goiter; Z79.4 Long term (current) use of insulin | CPT/HCPCS: 82947; 99212 ==

== ENCOUNTER → 2023-02-27 07:44 | Outpatient (BNVA) | payer MEDICARE, OTHER, SELFPAY | PROVIDERS: PCP Internal Medicine; Visit Provider Nurse Practitioner Family | DX: G47.33 Obstructive sleep apnea (adult) (pediatric) (principal); R40.0 Somnolence | CPT/HCPCS: 99212 ==

== ENCOUNTER 2023-04-04 07:59 | Outpatient (AMB) | payer MEDICARE, OTHER, SELFPAY ==
--- NOTE | 2023-04-04 08:26 | A.OFFVIS_ITS ---
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: No Accompanied by: Self / Same As Patient Allergies amoxicillin [AMOXICILLIN] Allergy (Unknown, Verified 03/05/23 08:41) HIVES azathioprine [From IMURAN] Allergy (Unknown, Verified 03/05/23 08:41) ABNORMAL LABS,HIVES etanercept [From ENBREL] Allergy (Unknown, Verified 03/05/23 08:41) HIVES infliximab [From REMICADE] Allergy (Unknown, Verified 03/05/23 08:41) RASH levofloxacin Allergy (Unknown, Verified 03/05/23 08:41) GI Upset nickel [NICKEL] Allergy (Unknown, Verified 03/05/23 08:41) UNKNOWN penicillin V Allergy (Unknown, Verified 03/05/23 08:41) hives Penicillins [PCN] Allergy (Unknown, Verified 03/05/23 08:41) HIVES tramadol Adverse Reaction (Verified 03/05/23 08:41) Nausea, sweating, dizzy HPI Comprehensive Diabetes Asmnt Most Recent Diabetes Results: No Data to Display [facility] Medical History Anxiety Behcet's disease Behcet's syndrome Bladder cancer Colon cancer screening Common bile duct dilatation COPD (chronic obstructive pulmonary disease) COVID-19 virus infection Daytime sleepiness 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 Dysuria Essential hypertension Fractured coccyx GERD (gastroesophageal reflux disease) History of DVT (deep vein thrombosis) Hyperlipidemia LDL goal <100 Left hip pain Left knee pain Low back pain radiating to left lower extremity Malignant neoplasm of pancreas, unspecified Non-toxic multinodular goiter Obstructive sleep apnea Osteoporosis Pulmonary nodule Right tibial fracture Thyroid nodule Tobacco abuse Type 2 diabetes mellitus with hyperglycemia Uncontrolled diabetes mellitus Vitamin D insufficiency Wheezes Surgical History H/O splenectomy History of back surgery History of cholecystectomy History of colonoscopy History of open reduction and internal fixation (ORIF) procedure History of pancreatic surgery History of surgery History of surgery History of varicose veins of lower extremity Family History Father Diabetes Advanced cardiac disease Mother Asthma Osteoporosis Brain cancer Brother Lung cancer Sister Breast cancer History of Coumadin therapy Brother Colostomy in place Daughter No problems noted. Son No problems noted. Social History Household Members: None Housing: House Do you presently have visiting nurse or other home services: No Alcohol intake: never Patient Tobacco Use Status: Current someday Tobacco user Tobacco use type: Cigarette Cigarette Packs Per Day: 0.5 Cigarettes Per Day: 8 Years Smoked: 50 e-Cigarette/Vaping Use: Never Used Second Hand Smoke Exposure: No Advance Directives Date on File: 12/11/21 service: No Current occupational status: retired Cognitive needs: No Hearing needs: No Vision needs: Yes Assessment & Plan Assessment & Plan (1) Type 2 diabetes mellitus with hyperglycemia: Code(s): E11.65 - Type 2 diabetes mellitus with hyperglycemia Qualifiers: Diabetes mellitus correction insulin use: with terminal press operator use Qualified Code(s): E11.65 - Type 2 diabetes mellitus with hyperglycemia; Z79.4 - terminal press operator (current) use of insulin Plan: Personal Continuous Glucose Monitor: Patients CGM information reviewed Reviewed patient's sensor data: Hypoglycemia: ? 0% Hyperglycemia:?20% Time in Range:? 80% Average glucose for the last 2 weeks? 146 mg/dL Patient reports she has stopped using CeQue device because [id number] cost is too high. Spoke with patient's insurance, insurance agreed to cover device with higher co- pay, but denied to reduce co-pay amount Will try to appeal, based on approved device Vgo is not appropriate due to basal dose of 20 units is higher than patient's basal dose of 16 units Patient's last A1c on 01/20/2023 was 6.9% At this time patient is well controlled but is interested in appealing insurance decision on CeQue device Reviewed how to interpret trend arrows Reminded patient that to check finger sticks if symptoms do not match sensor reading. Discussed lag time between finger stick and sensor data.? Patient able to insert sensor independently at home without issue.? Patient Instructions: Pt will f/u with [facility] in 3 months Coding Level of Care Code Est Pt Level 1 (70136) Diagnoses Type 2 diabetes mellitus with hyperglycemia E11.65; Z79.4 Diabetes mellitus terminal press operator insulin use: with correction use
== END 2023-04-04 08:33 | disposition home or self-care (01) ==
PROVIDERS: PCP Internal Medicine; Visit Provider Registered Nurse Diabetes Educator
DX: E11.65 Type 2 diabetes mellitus with hyperglycemia (principal); Z79.4 Long term (current) use of insulin

== ENCOUNTER → 2023-04-04 07:59 | Outpatient (BNVA) | payer MEDICARE, OTHER, SELFPAY | PROVIDERS: PCP Internal Medicine; Visit Provider Registered Nurse Diabetes Educator | DX: E11.65 Type 2 diabetes mellitus with hyperglycemia (principal); Z79.4 Long term (current) use of insulin | CPT/HCPCS: 99211 ==

== ENCOUNTER 2023-04-25 08:26 | Outpatient (AMB) | payer MEDICARE, OTHER, SELFPAY ==
--- NOTE | 2023-04-25 08:44 | AM.OFFWIN_ITS ---
Intake Vital Signs 04/25/23 08:48 BP 140/80 H Blood Pressure Location Rt brachial Position Sitting Pulse 72 Pulse Source Pulse Oximeter Temp 98.2 F Temp Source Temporal Artery Scan Pulse Oximetry (%) 98 Oxygen Delivery Method Room Air Intake Visit Reasons: EP Bee Sting/Face swelling/Hot (lobby) Intake Note: Patient here because friday she was cleaning the yard and she hot a bee nest and was stung on on the left side of face, last night she noticed she had swelling, warm to the touch and now it is traveling down her neck. Patient Tobacco Use Status: Current someday Tobacco user Allergies amoxicillin [AMOXICILLIN] Allergy (Unknown, Verified 04/25/23 09:37) HIVES azathioprine [From IMURAN] Allergy (Unknown, Verified 04/25/23 09:37) ABNORMAL LABS,HIVES etanercept [From ENBREL] Allergy (Unknown, Verified 04/25/23 09:37) HIVES infliximab [From REMICADE] Allergy (Unknown, Verified 04/25/23 09:37) RASH levofloxacin Allergy (Unknown, Verified 04/25/23 09:37) GI Upset nickel [NICKEL] Allergy (Unknown, Verified 04/25/23 09:37) UNKNOWN penicillin V Allergy (Unknown, Verified 04/25/23 09:37) hives Penicillins [PCN] Allergy (Unknown, Verified 04/25/23 09:37) HIVES tramadol Adverse Reaction (Verified 04/25/23 09:37) Nausea, sweating, dizzy Medication List - Last Reconciled 04/25/23 by Omar Duran MD [AutoPAP 5-15 cm of water humidified AIR As directed] albuterol sulfate 90 mcg/actuation 1 puff inhalation QID PRN ascorbate calcium (vitamin C) 500 mg PO DAILY 30 days atorvastatin 20 mg PO DAILY blood pressure monitor (Blood Pressure Kit) As directed blood sugar diagnostic (OneTouch Verio test strips) TEST 3 TIMES A DAY blood-glucose meter (PodioTouch Verio Flex Start kit) As directed blood-glucose sensor (Feedlooks G6 Sensor device) As directed certolizumab pegol (Cimzia) 200 mg subcut Q4W cholecalciferol (vitamin D3) 25 mcg PO DAILY fluticasone propionate 50 mcg/actuation (Flonase Allergy Relief) 2 sprays intranasal DAILY insulin glargine (Lantus Solostar U-100 Insulin) 16 units subcut BEDTIME insulin lispro (Humalog KwikPen (U-100) Insulin) inject 3-5 units prior to meals subcutaneously 3 times a day; lisinopril 20 mg PO DAILY lorazepam 1 mg PO DAILY PRN 30 days multivitamin 1 tab PO DAILY omega-3 fatty acids (Fish Oil Concentrate) 1,000 mg PO DAILY omeprazole 40 mg PO .prn ondansetron HCl 8 mg PO Q8H PRN pen needle, diabetic (Comfort EZ Pen [place]) As directed injects 4 X/day Do you need a note to return to daycare/school/sports/work: No HPI EP Bee Sting/Face swelling/Hot (lobby) HPI Details 68-year-old female presents to the office for a sick visit. Patient was stung by a bee on the left side of her cheek. Reports swelling and discomfort. 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 Dysuria Essential hypertension Fractured coccyx GERD (gastroesophageal reflux disease) History of DVT (deep vein thrombosis) Hyperlipidemia LDL goal <100 Left hip pain Left knee pain Low back pain radiating to left lower extremity Malignant neoplasm of pancreas, unspecified Non-toxic multinodular goiter Obstructive sleep apnea Osteoporosis Pulmonary nodule Right tibial fracture Thyroid nodule Tobacco abuse Type 2 diabetes mellitus with hyperglycemia Uncontrolled diabetes mellitus Vitamin D insufficiency Wheezes Surgical History H/O splenectomy History of back surgery History of cholecystectomy History of colonoscopy History of open reduction and internal fixation (ORIF) procedure History of pancreatic surgery History of surgery History of surgery History of varicose veins of lower extremity Family History Father Diabetes Advanced cardiac disease Mother Asthma Osteoporosis Brain cancer Brother Lung cancer Sister Breast cancer History of Coumadin therapy Brother Colostomy in place Daughter No problems noted. Son No problems noted. Social History Household Members: None Housing: House Do you presently have visiting nurse or other home services: No Alcohol intake: never Patient Tobacco Use Status: Current someday Tobacco user Tobacco use type: Cigarette Cigarette Packs Per Day: 0.5 Cigarettes Per Day: 8 Years Smoked: 50 e-Cigarette/Vaping Use: Never Used Second Hand Smoke Exposure: No Advance Directives Date on File: 12/11/21 service: No Current occupational status: retired Cognitive needs: No Hearing needs: No Vision needs: Yes Physical Exam Vital Signs: Last Vital Signs Temp 98.2 F 04/25/23 08:48 Pulse 72 04/25/23 08:48 BP 140/80 H 04/25/23 08:48 Pulse Ox 98 04/25/23 08:48 Oxygen Delivery Method Room Air 04/25/23 08:48 Skin Other: Face: Erythematous area over the left cheek. Tender to touch. Assessment & Plan Assessment & Plan (1) Bee sting allergy: Code(s): Z91.030 - Bee allergy status Plan: Prednisone called in. If symptoms not better to follow-up here. Coding Level of Care Code Est Pt Level 3 (81052) Diagnoses Bee sting allergy Z91.030
[2023-04-25 08:48] VITALS: BP 140/80; PULSE 72; TEMP 36.8; O2SAT 98
== END 2023-04-25 11:33 | disposition home or self-care (01) ==
PROVIDERS: PCP Internal Medicine; Visit Provider Internal Medicine
DX: Z91.030 Bee allergy status (principal)
CPT/HCPCS: 99213

== ENCOUNTER 2023-05-23 07:11 | Outpatient (REF) | payer MEDICARE, OTHER, SELFPAY ==
[2023-05-23 12:27] LABS: Free T4 (Free Thyroxine) 1.01 ng/dL (0.71-1.85); Thyroid Stimulating Hormone 1.51 uIU/mL (0.32-4.0)
== END 2023-05-23 07:12 | disposition home or self-care (01) ==
LOC: HO.HMGCLDS 07:11
PROVIDERS: PCP Internal Medicine; Visit Provider Internal Medicine Endocrinology, Diabetes & Metabolism
DX: E04.2 Nontoxic multinodular goiter (principal)
CPT/HCPCS: 36415; 84439; 84443

== ENCOUNTER 2023-05-28 08:29 | Outpatient (AMB) | payer MEDICARE, OTHER, SELFPAY ==
[2023-05-28 08:30] VITALS: BP 118/72; PULSE 74; BMI 28.7
--- NOTE | 2023-05-28 08:30 | MHC.OFFVIS ---
Intake Vital Signs 05/28/23 08:30 Height 5 ft 2.5 in Weight 159 lb 9.835 oz BMI 28.7 BP 118/72 Blood Pressure Location Lt brachial Position Sitting Pulse 74 Pulse Source Pulse Oximeter Intake Visit Reasons: DM Intake Note: Patient present today to follow up on Type 1 Diabetes Mellitus. Patient receives DME supplies through: [facility] Last Diabetic Eye exam: 09/12/2022 Last Podiatry Visit: 04/2023 Random Glucose: 181 mg/dl HgA1C: 8.0% Planograph Operator Required: No Accompanied by: Self / Same As Patient Allergies amoxicillin [AMOXICILLIN] Allergy (Unknown, Verified 05/28/23 08:34) HIVES azathioprine [From IMURAN] Allergy (Unknown, Verified 05/28/23 08:34) ABNORMAL LABS,HIVES etanercept [From ENBREL] Allergy (Unknown, Verified 05/28/23 08:34) HIVES infliximab [From REMICADE] Allergy (Unknown, Verified 05/28/23 08:34) RASH levofloxacin Allergy (Unknown, Verified 05/28/23 08:34) GI Upset nickel [NICKEL] Allergy (Unknown, Verified 05/28/23 08:34) UNKNOWN penicillin V Allergy (Unknown, Verified 05/28/23 08:34) hives Penicillins [PCN] Allergy (Unknown, Verified 05/28/23 08:34) HIVES tramadol Adverse Reaction (Verified 05/28/23 08:34) Nausea, sweating, dizzy Medication List - Last Reconciled 05/28/23 by Sukhdeep Grimm MD [AutoPAP 5-15 cm of water humidified AIR As directed] albuterol sulfate 90 mcg/actuation 1 puff inhalation QID PRN ascorbate calcium (vitamin C) 500 mg PO DAILY 30 days atorvastatin 20 mg PO DAILY blood pressure monitor (Blood Pressure Kit) As directed blood sugar diagnostic (VayaFelizTouch Verio test strips) TEST 3 TIMES A DAY blood-glucose meter (OneTouch Verio Flex Start kit) As directed blood-glucose sensor (Perfect Price G6 Sensor device) As directed certolizumab pegol (Cimzia) 200 mg subcut Q4W cholecalciferol (vitamin D3) 25 mcg PO DAILY fluticasone propionate 50 mcg/actuation (Flonase Allergy Relief) 2 sprays intranasal DAILY hydroxyzine HCl 25 mg PO TID PRN insulin glargine (Lantus Solostar U-100 Insulin) 16 units subcut BEDTIME insulin lispro (Humalog KwikPen (U-100) Insulin) inject 3-5 units prior to meals subcutaneously 3 times a day; lisinopril 20 mg PO DAILY lorazepam 1 mg PO DAILY PRN 30 days multivitamin 1 tab PO DAILY omega-3 fatty acids (Fish Oil Concentrate) 1,000 mg PO DAILY omeprazole 40 mg PO .prn ondansetron HCl 8 mg PO Q8H PRN pen needle, diabetic (Comfort EZ Pen [place]) As directed injects 4 X/day HPI HPI Comments History of Present Illness Details ?Patient is 68 yo female with DM diagnosed with diabetes s/p pancreatectomy in October 2017, who presents for continued management of diabetes.? Past medical history: malignant neoplasm of the pancreas with resection on 11/06/17, 30+ years of smoking quit in 2018, anxiety, osteoporosis, depression, MNG Bechet's Syndrome,? bladder ca w/ resection in late 2020 ?Diabetes medications: Lantus 18 units daily? Currentlly using 2? units Previous scale was Humalog Kwik pen 1 unit for small meals, 2 units for medium meals and 3 units for large meals plus correction scale.? 0.5 units for snack at night. ? Humalog correction for bg by Dean ? >200 0.5 unit ? >250 1.0 unit ? >300 1.5 unit ? Lantus for prednisone 20 units. ? Humalog for prednisone use:? ? 5 units for small meals 7 units for large meals plus a correction scale ? ? ? >200 2 unit ? >250 3 unit ? >300 4 unit ? >350 5 unit Continuous glucose monitoring:? For the past 2 weeks average blood glucose 197 ? No low blood glucose.?49 % in? target range of 70-180. 41% high, over 10?% very high, over 250.? CGM is active 93%.? Coefficient variation 51.? GMI is 7.8 . Patent shows persistent hyperglycemia throughout the day Symptoms:? reports? numbness and tingling in lower extremities Hypoglycemia:? rarely Hyperglycemia: + polyuria,? but drinks tea frequently Exercise: very active around home and works in her yard Eye exam: Aug 2023 next appt 10/2023 -? 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 Dysuria Essential hypertension Fractured coccyx GERD (gastroesophageal reflux disease) History of DVT (deep vein thrombosis) Hyperlipidemia LDL goal <100 Left hip pain Left knee pain Low back pain radiating to left lower extremity Malignant neoplasm of pancreas, unspecified Non-toxic multinodular goiter Obstructive sleep apnea Osteoporosis Pulmonary nodule Right tibial fracture Thyroid nodule Tobacco abuse Type 2 diabetes mellitus with hyperglycemia Uncontrolled diabetes mellitus Vitamin D insufficiency Wheezes Surgical History H/O splenectomy History of back surgery History of cholecystectomy History of colonoscopy History of open reduction and internal fixation (ORIF) procedure History of pancreatic surgery History of surgery History of surgery History of varicose veins of lower extremity Family History Father Diabetes Advanced cardiac disease Mother Asthma Osteoporosis Brain cancer Brother Lung cancer Sister Breast cancer History of Coumadin therapy Brother Colostomy in place Daughter No problems noted. Son No problems noted. Social History Household Members: None Housing: House Do you presently have visiting nurse or other home services: No Alcohol intake: never Patient Tobacco Use Status: Current someday Tobacco user Tobacco use type: Cigarette Cigarette Packs Per Day: 0.5 Cigarettes Per Day: 8 Years Smoked: 50 e-Cigarette/Vaping Use: Never Used Second Hand Smoke Exposure: No Advance Directives Date on File: 12/11/21 service: No Current occupational status: retired Cognitive needs: No Hearing needs: No Vision needs: Yes Physical Exam Vital Signs: Last Vital Signs Pulse 74 05/28/23 08:30 BP 118/72 05/28/23 08:30 BMI result Body Mass Index 28.7 Absence of Cushingoid features. Absence of acromegalic features. Neck exam reveals nl size thyroid about 15 gms. No thyroid nodules palpable. No carotid bruits present. Lungs CTA. Heart S1 S2, Reg R/R. No M/R/ G. Skin exam reveals absence of vitiligo or acanthosis nigricans. Abdominal exam reveals Soft NT/ND with NA BS. No organomegaly present. Extrem Other: Visual exam of foot performed. No ulcerations or open lesions. No onchomycosis, no callouses.Pulses 2 + distally. Sensation intact to monofilament exam. 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 . Plan is to Increase Lantus to 20 units and 24 units after a few days to keep AM POC<180 . Patient would be a good candidate for a automated insulin delivery system like either tandem X 2 orOmnipod and we spoke about this. If she is interested in going this direction she was schedule follow-up with the geospatial information scientist. Also prescribed glucagon rescue Baquimi . Will check lipid profile microalbumin to creatinine ratio ordered by primary care next month (2) Non-toxic multinodular goiter: Code(s): E04.2 - Nontoxic multinodular goiter Plan: This 67-year-old white female with a history of multinodular goiter status post FNA of left and right thyroid nodule with benign cytology. Recent thyroid ultrasounds are no appreciable change in the size of the nodules. She appears to be clinically euthyroid. Recent thyroid ultrasound shows stability in the size of the nodules Plan is to recheck TSH and free T4 . 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
[2023-05-28 08:45] LABS: Glucose, Whole Blood 181 mg/dL (60-115)
== END 2023-05-28 09:24 | disposition home or self-care (01) ==
PROVIDERS: PCP Internal Medicine; Visit Provider Internal Medicine Endocrinology, Diabetes & Metabolism
DX: E13.9 Other specified diabetes mellitus without complications (principal); S36.209S Unspecified injury of unspecified part of pancreas, sequela; E04.2 Nontoxic multinodular goiter; E11.65 Type 2 diabetes mellitus with hyperglycemia
CPT/HCPCS: 99214

== ENCOUNTER → 2023-05-28 08:29 | Outpatient (BNVA) | payer MEDICARE, OTHER, SELFPAY | PROVIDERS: PCP Internal Medicine; Visit Provider Internal Medicine Endocrinology, Diabetes & Metabolism | DX: E13.9 Other specified diabetes mellitus without complications (principal); S36.209S Unspecified injury of unspecified part of pancreas, sequela; E04.2 Nontoxic multinodular goiter; Z79.4 Long term (current) use of insulin | CPT/HCPCS: 82947; 83036; 99212 ==

== ENCOUNTER 2023-06-16 06:02 | Outpatient (REF) | payer MEDICARE, OTHER, SELFPAY ==
[2023-06-16 12:19] LABS: Estimated Average Glucose 180 mg/dL; Hemoglobin A1c % 7.9 % (<6.0)
[2023-06-16 12:31] LABS: Basophils Percent Auto 0.4 % (0-2); Eosinophils Absolute Auto 0.4 X10*3/uL (0.0-0.4); Eosinophils Percent Auto 3.9 % (0-4); Hematocrit 41.1 % (37.0-47.0); Hemoglobin 13.9 g/dl (12.0-16.0); Imm Gran Abs Auto 0.04 X10*3/uL (0.00-0.03); Imm Gran Pct Auto 0.4 % (0.0-0.4); Lymphocytes Absolute Auto 5.4 X10*3/uL (1.2-4.9); Lymphocytes Percent Auto 48.1 % (20-40); MANUAL DIFF FLAG SCAN; Mean Corpuscular HGB Conc 33.8 g/dl (31.0-35.0); Mean Corpuscular Hemoglobin 30.2 pg (27.0-33.0); Mean Corpuscular Volume 89.3 fL (80.0-98.0); Mean Platelet Volume 10.4 fL (9.4-12.3); Monocytes Absolute Auto 1.1 X10*3/uL (0.1-1.2); Neutrophils Absolute Auto 4.2 x10*3/uL (2.0-8.3); Neutrophils Percent Auto 37.2 % (45-73); Platelet Count 421 X10*3/uL (160-400); Red Cell Distribution Width 13.2 % (11.0-16.0); SCAN SMEAR FLAG 1; White Blood Count 11.1 X10*3/uL (4.8-10.8)
[2023-06-16 12:46] LABS: Alanine Aminotransferase 20 U/L (0-31); Albumin Level 4.1 g/dL (3.5-5.0); Alkaline Phosphatase 90 U/L (39-117); Anion Gap 15 (12-20); Aspartate Amino Transferase 22 U/L (5-31); Bilirubin Total 0.5 mg/dL (0.0-1.0); Blood Urea Nitrogen 12 mg/dL (9-16); Calcium 9.4 mg/dL (8.4-10.2); Carbon Dioxide 24 mmol/L (22-29); Chloride 105 mmol/L (96-108); Cholesterol 144 mg/dL (<200); Estimated Glomerular Filt Rate > 60; Glucose Random 120 mg/dL (60-115); HDL Cholesterol 44 mg/dL (>40); LDL Cholesterol Calculated 80 mg/dL (<100); Potassium 4.1 mmol/L (3.3-5.1); Sodium 140 mmol/L (135-145); Total Protein 7.4 g/dL (6.5-8.0); Triglycerides 102 mg/dL (<150)
[2023-06-16 13:07] LABS: Free T4 (Free Thyroxine) 0.87 ng/dL (0.71-1.85); Thyroid Stimulating Hormone 2.52 uIU/mL (0.32-4.0)
[2023-06-16 13:13] LABS: Creatinine Urine 81.95 mg/dL; Microalbum/Creatinine Ratio Ur 12.2 ug/mg cr (<30)
[2023-06-16 13:28] LABS: Folate 15.4 ng/mL (> or = 4.0); Vitamin B12 729 pg/mL (200-900)
[2023-06-16 13:36] LABS: SLIDE REVIEW VERIFIED
== END 2023-06-16 06:03 | disposition home or self-care (01) ==
LOC: HO.HMGCLDS 06:02
PROVIDERS: PCP Internal Medicine; Visit Provider Internal Medicine
DX: E11.65 Type 2 diabetes mellitus with hyperglycemia (principal); E78.00 Pure hypercholesterolemia, unspecified; Z79.4 Long term (current) use of insulin; I10 Essential (primary) hypertension
CPT/HCPCS: 36415; 80053; 80061; 82043; 82570; 82607; 82746; 83036; 84439; 84443; 85025

== ENCOUNTER 2023-06-19 09:14 | Outpatient (AMB) | payer MEDICARE, OTHER, SELFPAY ==
[2023-06-19 09:35] VITALS: BP 142/70; PULSE 73; O2SAT 96; BMI 28.6
--- NOTE | 2023-06-19 09:35 | MHC.PC.OV ---
Vital Signs 06/19/23 09:35 Height 5 ft 2.5 in Weight 159 lb BMI 28.6 BP 142/70 H Blood Pressure Location Lt brachial Position Sitting Pulse 73 Pulse Source Pulse Oximeter Pulse Oximetry (%) 96 Oxygen Delivery Method Room Air Intake Visit Reasons: 3 month f/u Allergies amoxicillin [AMOXICILLIN] Allergy (Unknown, Verified 06/19/23 09:35) HIVES azathioprine [From IMURAN] Allergy (Unknown, Verified 06/19/23 09:35) ABNORMAL LABS,HIVES etanercept [From ENBREL] Allergy (Unknown, Verified 06/19/23 09:35) HIVES infliximab [From REMICADE] Allergy (Unknown, Verified 06/19/23 09:35) RASH levofloxacin Allergy (Unknown, Verified 06/19/23 09:35) GI Upset nickel [NICKEL] Allergy (Unknown, Verified 06/19/23 09:35) UNKNOWN penicillin V Allergy (Unknown, Verified 06/19/23 09:35) hives Penicillins [PCN] Allergy (Unknown, Verified 06/19/23 09:35) HIVES tramadol Adverse Reaction (Verified 06/19/23 09:35) Nausea, sweating, dizzy Medication List - Last Reconciled 06/19/23 by Gloria Villarreal MD [AutoPAP 5-15 cm of water humidified AIR As directed] albuterol sulfate 90 mcg/actuation 1 puff inhalation QID PRN ascorbate calcium (vitamin C) 500 mg PO DAILY 30 days atorvastatin 20 mg PO DAILY blood pressure monitor (Blood Pressure Kit) As directed blood sugar diagnostic (OneTouch Verio test strips) TEST 3 TIMES A DAY blood-glucose meter (OneTouch Verio Flex Start kit) As directed blood-glucose sensor (Dexcom G6 Sensor device) As directed certolizumab pegol (Cimzia) 200 mg subcut Q4W cholecalciferol (vitamin D3) 25 mcg PO DAILY fluticasone propionate 50 mcg/actuation (Flonase Allergy Relief) 2 sprays intranasal DAILY glucagon 3 mg/actuation (Baqsimi) 3 mg intranasal ONCE hydroxyzine HCl 25 mg PO TID PRN insulin glargine (Lantus Solostar U-100 Insulin) 20 units (0.2 mL) subcut BEDTIME insulin lispro (Humalog KwikPen (U-100) Insulin) inject 3-5 units prior to meals subcutaneously 3 times a day; lisinopril 20 mg PO DAILY lorazepam 1 mg PO DAILY PRN 30 days multivitamin 1 tab PO DAILY omega-3 fatty acids (Fish Oil Concentrate) 1,000 mg PO DAILY omeprazole 40 mg PO .prn ondansetron HCl 8 mg PO Q8H PRN pen needle, diabetic (Comfort EZ [place]) As directed injects 4 X/day Tobacco use date assessed: 02/26/23 Fall risk assessment: No Falls in past year Last assessed Fall Risk: 06/19/23 Dental Screening Dental Screen Date: 06/19/23 Did you have a dental visit in the last 12 months?: Yes Did you have a dental problem in the last 6 months where you did not have access to dental care?: No Was dental information given to patient?: Patient has dentist HPI 3 month f/u HPI Details 68-year-old overweight female smoker with diabetes mellitus hypertension obstructive sleep apnea GERD COPD osteoporosis hypercholesterolemia generalized anxiety disorder 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 Patient has a pancreatic mass that is under surveillance. Colonoscopy is up-to-date mammogram due for next month. Patient follows up with Rheumatology blood work requested patient does have osteoporosis also and is on alendronate as for the Behcet's treated with Cimzia. Patient also follows up with endocrinology for the diabetes type 1(had pancreatectomy October 2017). Patient also has a mild obstructive sleep apnea under the CPAP/AutoPAP 5-15 cm water and has been using this. 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 Thyroid nodule Right tibial fracture Tobacco abuse Fractured coccyx Pulmonary nodule History of DVT (deep vein thrombosis) Behcet's syndrome COPD (chronic obstructive pulmonary disease) Osteoporosis Anxiety GERD (gastroesophageal reflux disease) Malignant neoplasm of pancreas, unspecified Obstructive sleep apnea Surgical History History of back surgery History of surgery History of colonoscopy History of varicose veins of lower extremity History of surgery History of pancreatic surgery History of open reduction and internal fixation (ORIF) procedure H/O splenectomy History of cholecystectomy Family History Father Diabetes Advanced cardiac disease Mother Asthma Osteoporosis Brain cancer Brother Lung cancer Sister Breast cancer History of Coumadin therapy Brother Colostomy in place Daughter No problems noted. Son No problems noted. Social History Household Members: None Housing: House Do you presently have visiting nurse or other home services: No Alcohol intake: never Patient Tobacco Use Status: Current someday Tobacco user Tobacco use type: Cigarette Cigarette Packs Per Day: 0.5 Cigarettes Per Day: 8 Years Smoked: 50 e-Cigarette/Vaping Use: Never Used Second Hand Smoke Exposure: No Advance Directives Date on File: 12/11/21 service: No Current occupational status: retired Cognitive needs: No Hearing needs: No Vision needs: Yes Questionnaire PHQ-9 Over the last 2 weeks, how often have you been bothered by any of the following problems? 1. Little interest or pleasure in doing things: not at all 2. Feeling down, depressed, or hopeless: not at all 3. Trouble falling or staying asleep, or sleeping too much: not at all 4. Feeling tired or having little energy: not at all 5. Poor appetite or overeating: not at all 6. Feeling bad about yourself - or that you are a failure or have let yourself or your family down: not at all 7. Trouble concentrating on things, such as reading the newspaper or watching television: not at all 8. Moving or speaking so slowly that other people could have noticed. Or the opposite - being so fidgety or restless that you have been moving around a lot more than usual: not at all 9. Thoughts that you would be better off or of hurting yourself in some way: not at all Total score: 0 Depression Screening Interpretation: Negative Source: Developed by Drs. Sukhdeep Franz, Ana Alexander, Varinder Muro and colleagues, with an educational malachi from [employer]. Thrive Questionnaire Date Thrive assessed: 11/19/22 AUDIT C Alcohol Use Questionnaire (AUDIT-C) 1. How often do you have a drink containing alcohol?: Never 3. How often do you have six or more drinks on one occasion?: Never Total Score: 0 Score Reviewed/Action Taken: No LISHA-7 AMB Questionnaire LISHA-7 Date LISHA - 7 assessed: 11/19/22 Source: Developed by Drs. Sukhdeep Franz, Ana Alexander, Varinder Muro and colleagues, with an educational malachi from [employer]. Physical exam (Primary Care) Vital Signs: Last Vital Signs Pulse 73 06/19/23 09:35 BP 142/70 H 06/19/23 09:35 Pulse Ox 96 06/19/23 09:35 Oxygen Delivery Method Room Air 06/19/23 09:35 BMI result Body Mass Index 28.6 Tobacco/Smoking Status: Tobacco use Status Tobacco use date assessed 02/26/23 06/19/23 09:36 Patient Tobacco Use Status Current someday Tobacco 06/19/23 09:36 Tobacco use type Cigarette 06/19/23 09:36 e-Cigarette/Vaping Use Never Used 06/19/23 09:36 PHQ-9: PHQ-9 Score PHQ-9: Total score 0 06/19/23 09:43 Depression Screening Interpretation: Negative Thrive Assessment: Date of Thrive Assessment Date Thrive assessed 11/19/22 06/19/23 09:36 Const General: alert; No acute distress Eyes Conjunctivae: conjunctivae normal Resp Auscultation: clear to auscultation bilaterally Cardio Rate: regular rate Rhythm: regular rhythm GI Inspection: Yes normal to inspection Extrem General: Yes normal to inspection and No edema Assessment and Plan Assessment & Plan (1) 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 Patient follows up with endocrinology and planned insulin pump patient uses the continues glucose monitor (2) Hyperlipidemia LDL goal <100: Code(s): E78.5 - Hyperlipidemia, unspecified Plan: Avoid fried foods, chicken skin, eggs, butter margarine, pastries and meat. Be it pork or beef they have a lot of cholesterol LDL goal of less than 100 and triglyceride of less than 150 patient takes atorvastatin 20 mg once a day (3) COPD (chronic obstructive pulmonary disease): Code(s): J44.9 - Chronic obstructive pulmonary disease, unspecified Qualifiers: COPD type: emphysema Emphysema type: unspecified Qualified Code(s): J43.9 - Emphysema, unspecified Plan: Patient is advised strongly to stop smoking. Patient is on inhalers (4) Tobacco abuse: Code(s): Z72.0 - Tobacco use Plan: Strongly advised to stop smoke! (5) Osteoporosis: Comment: Alendronate June 2012, September 2018 Code(s): M81.0 - Age-related osteoporosis without current pathological fracture Qualifiers: Osteoporosis type: age-related Presence of current pathological fracture: without current pathological fracture Qualified Code(s): M81.0 - Age-related osteoporosis without current pathological fracture Plan: Patient is on alendronate bone density request to be done (6) GERD (gastroesophageal reflux disease): Code(s): K21.9 - Gastro-esophageal reflux disease without esophagitis Qualifiers: Esophagitis presence: without esophagitis Qualified Code(s): K21.9 - Gastro-esophageal reflux disease without esophagitis Plan: Avoid the foods that causes that usually spicy foods, tomato products, juices, coffee, soda and foods that your sensitive to. After eating do not lie down, allow 3-4 hours before in lie down. And keep the head of bed above 30 degrees to avoid the acid from going up. (7) Obstructive sleep apnea: Comment: Study done 01/02/2023 mild, AutoPAP 5-15 cm of water Code(s): G47.33 - Obstructive sleep apnea (adult) (pediatric) Plan: Patient continues to follow-up with Neurology and continues to use the CPAP more than 4 hours a night benefits from this (8) Essential hypertension: Code(s): I10 - Essential (primary) hypertension Plan: Continue with blood pressure medication. 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
== END 2023-06-19 10:23 | disposition home or self-care (01) ==
PROVIDERS: PCP Internal Medicine; Visit Provider Internal Medicine
DX: E13.9 Other specified diabetes mellitus without complications (principal); J43.9 Emphysema, unspecified; S36.209S Unspecified injury of unspecified part of pancreas, sequela; M35.2 Behcet's disease; E78.5 Hyperlipidemia, unspecified; Z72.0 Tobacco use; M81.0 Age-related osteoporosis without current pathological fracture; K21.9 Gastro-esophageal reflux disease without esophagitis; G47.33 Obstructive sleep apnea (adult) (pediatric); I10 Essential (primary) hypertension; N32.89 Other specified disorders of bladder
CPT/HCPCS: 99214

== ENCOUNTER 2023-07-08 08:09 | Outpatient (AMB) | payer MEDICARE, OTHER, SELFPAY ==
--- NOTE | 2023-07-08 08:10 | MHC.OFFWIV ---
Intake Vital Signs 07/08/23 08:14 Weight 158 lb BP 140/80 H Blood Pressure Location Rt brachial Position Sitting Pulse 102 H Pulse Source Pulse Oximeter Temp 98.5 F Temp Source Oral Pulse Oximetry (%) 94 Oxygen Delivery Method Room Air Intake Visit Reasons: Ep, sore throat, headache (masked) Intake Note: Patient here for sore throat and headaches that started Friday. Patient Tobacco Use Status: Current someday Tobacco user Allergies amoxicillin [AMOXICILLIN] Allergy (Unknown, Verified 07/08/23 08:15) HIVES azathioprine [From IMURAN] Allergy (Unknown, Verified 07/08/23 08:15) ABNORMAL LABS,HIVES etanercept [From ENBREL] Allergy (Unknown, Verified 07/08/23 08:15) HIVES infliximab [From REMICADE] Allergy (Unknown, Verified 07/08/23 08:15) RASH levofloxacin Allergy (Unknown, Verified 07/08/23 08:15) GI Upset nickel [NICKEL] Allergy (Unknown, Verified 07/08/23 08:15) UNKNOWN penicillin V Allergy (Unknown, Verified 07/08/23 08:15) hives Penicillins [PCN] Allergy (Unknown, Verified 07/08/23 08:15) HIVES tramadol Adverse Reaction (Verified 07/08/23 08:15) Nausea, sweating, dizzy Do you need a note to return to daycare/school/sports/work: No HPI HPI Comments History of Present Illness Details This is a 68 year old female with a past medical history of insulin dependent diabetes, hypertension, OSD, hyperlipidemia and generalized anxiety disorder presenting for evaluation of a sore throat that she has had for the past 4 days. Patient denies having any fevers but has had chills and finds it difficult to swallow. She has taken Tylenol and ibuprofen with only minimal relief for discomfort. Patient denies having any hyperglycemia, cough, shortness of breath, chest pain or ear pain. 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 Thyroid nodule Right tibial fracture Tobacco abuse Fractured coccyx Pulmonary nodule History of DVT (deep vein thrombosis) Behcet's syndrome COPD (chronic obstructive pulmonary disease) Osteoporosis Anxiety GERD (gastroesophageal reflux disease) Malignant neoplasm of pancreas, unspecified Obstructive sleep apnea Surgical History History of back surgery History of surgery History of colonoscopy History of varicose veins of lower extremity History of surgery History of pancreatic surgery History of open reduction and internal fixation (ORIF) procedure H/O splenectomy History of cholecystectomy Family History Father Diabetes Advanced cardiac disease Mother Asthma Osteoporosis Brain cancer Brother Lung cancer Sister Breast cancer History of Coumadin therapy Brother Colostomy in place Daughter No problems noted. Son No problems noted. Social History Household Members: None Housing: House Do you presently have visiting nurse or other home services: No Alcohol intake: never Patient Tobacco Use Status: Current someday Tobacco user Tobacco use type: Cigarette Cigarette Packs Per Day: 0.5 Cigarettes Per Day: 8 Years Smoked: 50 e-Cigarette/Vaping Use: Never Used Second Hand Smoke Exposure: No Advance Directives Date on File: 12/11/21 service: No Current occupational status: retired Cognitive needs: No Hearing needs: No Vision needs: Yes Review of Systems Const Reports chills, Denies fever(s) and Denies headache(s) Eyes Reports as per HPI ENT Reports as per HPI, Denies dental pain, Denies headache(s), Denies sinus pressure, Reports sore throat and Denies throat swelling Card Reports as per HPI and Denies dyspnea Resp Reports as per HPI, Denies cough, Denies dyspnea and Denies wheezing GI Reports as per HPI Neuro Denies headache(s) Jose F/Lymph Denies lymphadenopathy Aller/Immun Denies throat swelling and Denies wheezing Physical Exam Vital Signs: Last Vital Signs Temp 98.5 F 07/08/23 08:14 Pulse 102 H 07/08/23 08:14 BP 140/80 H 07/08/23 08:14 Pulse Ox 94 07/08/23 08:14 Oxygen Delivery Method Room Air 07/08/23 08:14 Const General: cooperative, healthy appearing, comfortable, no acute distress, alert and awake Nutritional Appearance: overweight Orientation/consciousness: patient oriented x3 Limitations: no limitations HEENT Ears: external ears normal, TM's normal bilaterally and EAC's normal General nose exam: Normal external nose present Face and sinus: Yes sinuses nontender Mouth: lip normal, tongue normal, moist mucous membranes and malodorous breath Teeth and gingiva: dentition normal and gingiva normal Throat: Yes posterior oropharynx abnormal ( There is edema and erythema of the posterior oropharynx, uvula is midline) and Yes other (no exudates of the posterior oropharynx) Eyes General: appearance normal, both eyes and all related structures Conjunctivae: conjunctivae normal Sclerae: sclerae normal Resp Effort & Inspection: normal respiratory effort, able to speak in complete sentences and no audible wheezes Auscultation: clear to auscultation bilaterally Cardio Rate: regular rate (hr 92) Rhythm: regular rhythm Neuro General: patient oriented x3 Psych Appearance: grossly normal Mental Status: mental status grossly normal Insight: Good insight present (Psych) Judgement: Good judgement present (Psych) Results AMB Rapid Strep AMB Rapid Strep Negative Last Edit by ADIN Magallon on 07/08/23 08:26 Results Reviewed Results Reviewed: Laboratory Last Values Strep Scn Rapid Clinic Negative 07/08/23 08:25 rapid strep negative Assessment & Plan Assessment & Plan (1) Acute pharyngitis: Code(s): J02.9 - Acute pharyngitis, unspecified Plan: Given this patient's history coupled with her examination, patient will be discharged home with antibiotic therapy for management of this acute pharyngitis that clinically appears bacterial in origin. Plan antibiotic therapy as prescribed, please follow-up with your primary care physician within 5 days if your symptoms are not improving. Orders: Orders AMB Rapid Strep Screen Today Z13.9 - Encounter for screening, unspecified Medications: New clindamycin HCl 300 mg PO TID 30 caps 0RF Coding Level of Care Code Est Pt Level 3 (09852) Diagnoses Acute pharyngitis J02.9 Time Spent (min) 20
[2023-07-08 08:14] VITALS: BP 140/80; PULSE 102; TEMP 36.9; O2SAT 94
== END 2023-07-08 09:08 | disposition home or self-care (01) ==
PROVIDERS: PCP Internal Medicine; Visit Provider Physician Assistant
DX: J02.9 Acute pharyngitis, unspecified (principal)
CPT/HCPCS: 87880; 99213

== ENCOUNTER 2023-09-03 09:08 | Outpatient (AMB) | payer MEDICARE, OTHER, SELFPAY ==
--- NOTE | 2023-09-03 09:19 | MHC.OFFVIS ---
Intake Vital Signs 09/03/23 09:20 Height 5 ft 2.5 in Weight 161 lb 6 oz BMI 29.0 BP 158/90 H Blood Pressure Location Lt brachial Position Sitting Respiration 17 Pulse 91 Pulse Source Pulse Oximeter Pulse Oximetry (%) 98 Oxygen Delivery Method Room Air Intake Visit Reasons: 6m follow up CHARLI-Confirmed Intake Note: Pt presents for a 6 month follow up for CHARLI. 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: No Allergies amoxicillin [AMOXICILLIN] Allergy (Unknown, Verified 09/03/23 09:19) HIVES azathioprine [From IMURAN] Allergy (Unknown, Verified 09/03/23 09:19) ABNORMAL LABS,HIVES etanercept [From ENBREL] Allergy (Unknown, Verified 09/03/23 09:19) HIVES infliximab [From REMICADE] Allergy (Unknown, Verified 09/03/23:19) RASH levofloxacin Allergy (Unknown, Verified 09/03/23 09:19) GI Upset nickel [NICKEL] Allergy (Unknown, Verified 09/03/23 09:19) UNKNOWN penicillin V Allergy (Unknown, Verified 09/03/23 09:19) hives Penicillins [PCN] Allergy (Unknown, Verified 09/03/23 09:19) HIVES tramadol Adverse Reaction (Verified 09/03/23 09:19) Nausea, sweating, dizzy HPI HPI Comments History of Present Illness Details 68 y/o female patient presents for follow up of CHARLI on CPAP. Pt reports she still has sinus issue, congestion and phlegm in the morning. She has new CPAP and change the filter weekly. She had allergy test done and confirm that she has dust mite allergy, and started Xyzal, and it seems like help a little bit. Pt's CPAP company is [facility] but getting supplies from [facility] in [place]. The CPAP compliance and therapy response reviewed. She is on APAP [id number]. The average usage hours 5 hr 44 min. The median pressure is 12.6 and the residual AHI was 0.4/hr. She sleeps better, having rested and refresh sleep, and daytime tired has been improved. She still smokes cigarets but cut down to half pack a day. 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 Thyroid nodule Right tibial fracture Tobacco abuse Fractured coccyx Pulmonary nodule History of DVT (deep vein thrombosis) Behcet's syndrome COPD (chronic obstructive pulmonary disease) Osteoporosis Anxiety GERD (gastroesophageal reflux disease) Malignant neoplasm of pancreas, unspecified Obstructive sleep apnea Surgical History History of back surgery History of surgery History of colonoscopy History of varicose veins of lower extremity History of surgery History of pancreatic surgery History of open reduction and internal fixation (ORIF) procedure H/O splenectomy History of cholecystectomy Family History Father Diabetes Advanced cardiac disease Mother Asthma Osteoporosis Brain cancer Brother Lung cancer Sister Breast cancer History of Coumadin therapy Brother Colostomy in place Daughter No problems noted. Son No problems noted. Social History Household Members: None Housing: House Do you presently have visiting nurse or other home services: No Alcohol intake: never Patient Tobacco Use Status: Current someday Tobacco user Tobacco use type: Cigarette Cigarette Packs Per Day: 0.5 Cigarettes Per Day: 8 Years Smoked: 50 e-Cigarette/Vaping Use: Never Used Second Hand Smoke Exposure: No Advance Directives Date on File: 12/11/21 service: No Current occupational status: retired Cognitive needs: No Hearing needs: No Vision needs: Yes Review of Systems Const All systems reviewed & are unremarkable except as noted in HPI and below ENT Reports Normal hearing present Neuro Reports Normal hearing present Physical Exam Vital Signs: Last Vital Signs Pulse 91 09/03/23 09:20 Resp 17 09/03/23 09:20 BP 158/90 H 09/03/23 09:20 Pulse Ox 98 09/03/23 09:20 Oxygen Delivery Method Room Air 09/03/23 09:20 BMI result Body Mass Index 29.0 Const Orientation/consciousness: patient oriented x3 Neck Neck: Yes full ROM and Yes supple Resp Effort & Inspection: normal respiratory effort and able to speak in complete sentences Neuro General: patient oriented x3 and gait normal Cranial nerves: Yes Bilaterally intact EOM present, Yes Normal facial strength present, Yes Midline tongue present, Yes Symmetric palate elevation present, Yes Normal hearing present, Yes Ability to bilaterally rotate head present and Yes Ability to bilaterally elevate shoulders present Cognition (Neuro): normal cognition Gait exam (Neuro): Normal gait present Motor exam (neuro): 5/5 motor strength present throughout, Pronator motor function not present and no tremor noted Psych Appearance: grossly normal Mental Status: mental status grossly normal Speech and movement: Normal speech and movement present Affect: normal affect Attitude: cooperative Assessment & Plan Assessment & Plan (1) Daytime sleepiness: Code(s): R40.0 - Somnolence (2) Obstructive sleep apnea: Comment: Study done 01/02/2023 mild, AutoPAP 5-15 cm of water Code(s): G47.33 - Obstructive sleep apnea (adult) (pediatric) Plan Pt is advised to continue to use APAP 5-15cm2O. Stressed compliance, use CPAP nightly and more than 4 hours. Advised patient to cut evening smoking. Coding Level of Care Code Est Pt Level 3 (35955) Diagnoses Daytime sleepiness R40.0 Obstructive sleep apnea G47.33
[2023-09-03 09:20] VITALS: BP 158/90; PULSE 91; RESP 17; O2SAT 98; BMI 29.0
== END 2023-09-03 09:47 | disposition home or self-care (01) ==
PROVIDERS: PCP Internal Medicine; Visit Provider Nurse Practitioner Family
DX: R40.0 Somnolence (principal); G47.33 Obstructive sleep apnea (adult) (pediatric)
CPT/HCPCS: 99213

== ENCOUNTER → 2023-09-03 09:08 | Outpatient (BNVA) | payer MEDICARE, OTHER, SELFPAY | PROVIDERS: PCP Internal Medicine; Visit Provider Nurse Practitioner Family | DX: G47.33 Obstructive sleep apnea (adult) (pediatric) (principal); R40.0 Somnolence | CPT/HCPCS: 99212 ==

== ENCOUNTER 2023-09-23 08:05 | Outpatient (AMB) | payer MEDICARE, OTHER, SELFPAY ==
[2023-09-23 08:16] VITALS: BP 160/92; PULSE 97; TEMP 36.7; O2SAT 98
--- NOTE | 2023-09-23 08:16 | AM.OFFWIN_ITS ---
Intake Vital Signs 09/23/23 08:16 Height 5 ft 2.5 in BP 160/92 H Blood Pressure Location Rt brachial Position Sitting Pulse 97 Pulse Source Pulse Oximeter Temp 98.1 F Temp Source Oral Pulse Oximetry (%) 98 Oxygen Delivery Method Room Air Intake Visit Reasons: EP, sore throat, bilateral ear pain ([phone]) Intake Note: pt is here for c/o headache, sore throat, headache, possible uti Patient Tobacco Use Status: Current someday Tobacco user Allergies amoxicillin [AMOXICILLIN] Allergy (Unknown, Verified 09/23/23 08:41) HIVES azathioprine [From IMURAN] Allergy (Unknown, Verified 09/23/23 08:41) ABNORMAL LABS,HIVES etanercept [From ENBREL] Allergy (Unknown, Verified 09/23/23 08:41) HIVES infliximab [From REMICADE] Allergy (Unknown, Verified 09/23/23 08:41) RASH levofloxacin Allergy (Unknown, Verified 09/23/23 08:41) GI Upset nickel [NICKEL] Allergy (Unknown, Verified 09/23/23 08:41) UNKNOWN penicillin V Allergy (Unknown, Verified 09/23/23 08:41) hives Penicillins [PCN] Allergy (Unknown, Verified 09/23/23 08:41) HIVES tramadol Adverse Reaction (Verified 09/23/23 08:41) Nausea, sweating, dizzy Medication List - Last Reconciled 09/23/23 by Omar Duran MD [AutoPAP 5-15 cm of water humidified AIR As directed] albuterol sulfate 90 mcg/actuation 1 puff inhalation QID PRN alendronate mg PO ascorbic acid (vitamin C) 500 mg PO DAILY 90 days atorvastatin 20 mg PO DAILY blood pressure monitor (Blood Pressure Kit) As directed blood sugar diagnostic (HomeSpaceTouch Verio test strips) TEST 3 TIMES A DAY blood-glucose meter (OneTouch Verio Flex Start kit) As directed blood-glucose sensor ([facility] G6 Sensor device) As directed certolizumab pegol (Cimzia) 200 mg subcut Q4W cholecalciferol (vitamin D3) 25 mcg PO DAILY fluticasone propionate 50 mcg/actuation (Flonase Allergy Relief) 2 sprays intranasal DAILY glucagon 3 mg/actuation (Baqsimi) 3 mg intranasal ONCE hydroxyzine HCl 25 mg PO TID PRN insulin glargine (Lantus Solostar U-100 Insulin) 20 units (0.2 mL) subcut B EDTIME insulin lispro (Humalog KwikPen (U-100) Insulin) inject 3-5 units prior to meals subcutaneously 3 times a day; levocetirizine 5 mg PO DAILY lisinopril 20 mg PO DAILY lorazepam 1 mg PO DAILY PRN 30 days multivitamin 1 tab PO DAILY omega-3 fatty acids (Fish Oil Concentrate) 1,000 mg PO DAILY omeprazole 40 mg PO .prn ondansetron HCl 8 mg PO Q8H PRN pen needle, diabetic (Comfort EZ Pen [place]) As directed injects 4 X/day Do you need a note to return to daycare/school/sports/work: No HPI EP, sore throat, bilateral ear pain ([phone]) HPI Details 68-year-old female presents to the [facility] for a sick visit. Patient is reporting symptoms of sore throat, sinus congestion and ear pain. Symptoms started a few days ago. In addition patient is complaining of increased frequency of urination, burning on urination. The symptoms also started a few days ago. Patient has history of bladder cancer and sees a urologist in [place]. 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 Thyroid nodule Right tibial fracture Tobacco abuse Fractured coccyx Pulmonary nodule History of DVT (deep vein thrombosis) Behcet's syndrome COPD (chronic obstructive pulmonary disease) Osteoporosis Anxiety GERD (gastroesophageal reflux disease) Malignant neoplasm of pancreas, unspecified Obstructive sleep apnea Surgical History History of back surgery History of surgery History of colonoscopy History of varicose veins of lower extremity History of surgery History of pancreatic surgery History of open reduction and internal fixation (ORIF) procedure H/O splenectomy History of cholecystectomy Family History Father Diabetes Advanced cardiac disease Mother Asthma Osteoporosis Brain cancer Brother Lung cancer Sister Breast cancer History of Coumadin therapy Brother Colostomy in place Daughter No problems noted. Son No problems noted. Social History Household Members: None Housing: House Do you presently have visiting nurse or other home services: No Alcohol intake: never Patient Tobacco Use Status: Current someday Tobacco user Tobacco use type: Cigarette Cigarette Packs Per Day: 0.5 Cigarettes Per Day: 8 Years Smoked: 50 e-Cigarette/Vaping Use: Never Used Second Hand Smoke Exposure: No Advance Directives Date on File: 12/11/21 service: No Current occupational status: retired Cognitive needs: No Hearing needs: No Vision needs: Yes Physical Exam Vital Signs: Last Vital Signs Temp 98.1 F 09/23/23 08:16 Pulse 97 09/23/23 08:16 BP 160/92 H 09/23/23 08:16 Pulse Ox 98 09/23/23 08:16 Oxygen Delivery Method Room Air 09/23/23 08:16 Const General: cooperative and healthy appearing Nutritional Appearance: well nourished Orientation/consciousness: patient oriented x3 Limitations: no limitations HEENT Other: Throat: Congested, mild tonsillar enlargement. Head: Yes normal to inspection Eyes General: appearance normal, both eyes and all related structures Neck Neck: Yes normal visual inspection Chest Chest palpation & inspection: normal palpation of entire chest wall Resp Effort & Inspection: normal respiratory effort General: Yes no CVA tenderness Back/Spine/Pelvis Back: no CVA tenderness Neuro General: patient oriented x3 Results AMB Urinalysis, Automated UA Leukoctes 500 Chacho/uL Last Edit by Tessy Velasquez CMA on 09/23/23 08:34 UA Nitrite Negative Last Edit by Tessy Velasquez CMA on 09/23/23 08:34 UA Urobilinogen 0.2 mg/dL Last Edit by Tessy Velasquez CMA on 09/23/23 08:34 UA Protein 15 mg/dL Last Edit by Tessy Velasquez CMA on 09/23/23 08:34 UA pH 6.0 Last Edit by Tessy Velasquez CMA on 09/23/23 08:34 UA Blood 25 Leonard/uL Last Edit by Tessy Velasquez CMA on 09/23/23 08:34 UA Specific [place] 1.015 Last Edit by Tessy Velasquez CMA on 09/23/23 08:34 UA Ketone Negative Last Edit by Tessy Velasquez CMA on 09/23/23 08:34 UA Bilirubin 0 mg/dL Last Edit by Tessy Velasquez CMA on 09/23/23 08:34 UA Glucose 0 mg/dL Last Edit by Tessy Velasquez CMA on 09/23/23 08:34 Results Reviewed Results Reviewed: Laboratory Last Values Urine pH (Auto) 6.0 09/23/23 08:32 Specific [place] (Auto) 1.015 09/23/23 08:32 Urine Protein (Auto) 15 mg/dL 09/23/23 08:32 Glucose (UA)(Auto) 0 mg/dL 09/23/23 08:32 Urine Ketones (Auto) Negative 09/23/23 08:32 Urine Blood (Auto) 25 Leonard/uL 09/23/23 08:32 Urine Nitrite (Auto) Negative 09/23/23 08:32 Urine Bilirubin (Auto) 0 mg/dL 09/23/23 08:32 Urine Urobilinogen (Auto) 0.2 mg/dL 09/23/23 08:32 Leukocyte Esterase (Auto) 500 Chacho/uL 09/23/23 08:32 Assessment & Plan Assessment & Plan (1) Acute pharyngitis: Code(s): J02.9 - Acute pharyngitis, unspecified Plan: Strep test was negative. Antibiotics ordered for the bladder infection will cover the symptoms of the throat infection. (2) Urinary tract infection: Code(s): N39.0 - Urinary tract infection, site not specified Plan: Urinalysis positive for infection. Bactrim and Pyridium ordered. If symptoms do not improve to follow-up here. Orders: Orders AMB Urinalysis Automated Today Z13.9 - Encounter for screening, unspecified Coding Level of Care Code Est Pt Level 4 (23688) Diagnoses Acute pharyngitis J02.9 Urinary tract infection N39.0
== END 2023-09-23 08:46 | disposition home or self-care (01) ==
PROVIDERS: PCP Internal Medicine; Visit Provider Internal Medicine
DX: J02.9 Acute pharyngitis, unspecified (principal); N39.0 Urinary tract infection, site not specified; R39.15 Urgency of urination
CPT/HCPCS: 81003; 87880; 99214

== ENCOUNTER 2023-09-25 08:26 | Outpatient (AMB) | payer MEDICARE, OTHER, SELFPAY ==
[2023-09-25 08:27] VITALS: BP 144/78; PULSE 79; BMI 29.1
--- NOTE | 2023-09-25 08:27 | MHC.OFFVIS ---
Intake Vital Signs 09/25/23 08:27 Height 5 ft 2.5 in Weight 161 lb 13.109 oz BMI 29.1 BP 144/78 H Blood Pressure Location Lt brachial Position Sitting Pulse 79 Pulse Source Pulse Oximeter Intake Visit Reasons: f/u pancreolytic diabetes-LVM Intake Note: Patient present today to follow up on Pancreolytic Diabetes. Patient receives DME supplies through: [facility] Last Diabetic Eye exam: 08/2022 Last Podiatry Visit: 08/25/2023 Random Glucose: 157 mg/dl HgA1C: 8.7% Weather Analyst Required: No Accompanied by: Self / Same As Patient Allergies amoxicillin [AMOXICILLIN] Allergy (Unknown, Verified 09/25/23 08:34) HIVES azathioprine [From IMURAN] Allergy (Unknown, Verified 09/25/23 08:34) ABNORMAL LABS,HIVES etanercept [From ENBREL] Allergy (Unknown, Verified 09/25/23 08:34) HIVES infliximab [From REMICADE] Allergy (Unknown, Verified 09/25/23 08:34) RASH levofloxacin Allergy (Unknown, Verified 09/25/23 08:34) GI Upset nickel [NICKEL] Allergy (Unknown, Verified 09/25/23 08:34) UNKNOWN penicillin V Allergy (Unknown, Verified 09/25/23 08:34) hives Penicillins [PCN] Allergy (Unknown, Verified 09/25/23 08:34) HIVES tramadol Adverse Reaction (Verified 09/25/23 08:34) Nausea, sweating, dizzy Medication List - Last Reconciled 09/25/23 by Sukhdeep Grimm MD [AutoPAP 5-15 cm of water humidified AIR As directed] albuterol sulfate 90 mcg/actuation 1 puff inhalation QID PRN alendronate mg PO ascorbic acid (vitamin C) 500 mg PO DAILY 90 days atorvastatin 20 mg PO DAILY blood pressure monitor (Blood Pressure Kit) As directed blood sugar diagnostic (OneTouch Verio test strips) TEST 3 TIMES A DAY blood-glucose meter (OneTouch Verio Flex Start kit) As directed blood-glucose sensor ([employer] G6 Sensor device) As directed certolizumab pegol (Cimzia) 200 mg subcut Q4W cholecalciferol (vitamin D3) 25 mcg PO DAILY fluticasone propionate 50 mcg/actuation (Flonase Allergy Relief) 2 sprays intranasal DAILY glucagon 3 mg/actuation (Baqsimi) 3 mg intranasal ONCE hydroxyzine HCl 25 mg PO TID PRN insulin glargine (Lantus Solostar U-100 Insulin) 20 units (0.2 mL) subcut BEDTIME insulin lispro (Humalog KwikPen (U-100) Insulin) inject 3-5 units prior to meals subcutaneously 3 times a day; levocetirizine 5 mg PO DAILY lisinopril 20 mg PO DAILY lorazepam 1 mg PO DAILY PRN 30 days multivitamin 1 tab PO DAILY omega-3 fatty acids (Fish Oil Concentrate) 1,000 mg PO DAILY omeprazole 40 mg PO .prn ondansetron HCl 8 mg PO Q8H PRN pen needle, diabetic (Comfort EZ Pen [place]) As directed injects 4 X/day phenazopyridine (Pyridium) 200 mg PO TID 3 days sulfamethoxazole-trimethoprim 800-160 mg (Bactrim DS) 1 tab PO BID 7 days HPI HPI Comments History of Present Illness Details ?Patient is 68 yo female with DM diagnosed with diabetes s/p pancreatectomy in October 2017, who presents for continued management of diabetes.? Past medical history: malignant neoplasm of the pancreas with resection on 11/06/17, 30+ years of smoking quit in 2018, anxiety, osteoporosis, depression, MNG Bechet's Syndrome,? bladder ca w/ resection in late 2020 ?Diabetes medications: Lantus 18 units daily? Currentlly using 2? units Previous scale was Humalog Kwik pen 1 unit for small meals, 2 units for medium meals and 3 units for large meals plus correction scale.? 0.5 units for snack at night. ? Humalog correction for bg ? >200 0.5 unit ? >250 1.0 unit ? >300 1.5 unit ? Lantus for prednisone 20 units. ? Humalog for prednisone use:? ? 5 units for small meals 7 units for large meals plus a correction scale ? ? ? >200 2 unit ? >250 3 unit ? >300 4 unit ? >350 5 unit Continuous glucose monitoring:? For the past 2 weeks average blood glucose 169 ? No low blood glucose.?61 % in? target range of 70-180. 34% high, over 4?% very high, over 250.? CGM is active 93%.? Coefficient variation 46.? GMI is 7.3 . Patent shows elevated point of care post-breakfast and the persistent throughout afternoon Symptoms:? reports? numbness and tingling in lower extremities Hypoglycemia:? rarely but happens when more active Hyperglycemia: + polyuria,? but drinks tea frequently Exercise: very active around home and works in her yard Eye exam: next appt 10/2023 -? 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 Thyroid nodule Right tibial fracture Tobacco abuse Fractured coccyx Pulmonary nodule History of DVT (deep vein thrombosis) Behcet's syndrome COPD (chronic obstructive pulmonary disease) Osteoporosis Anxiety GERD (gastroesophageal reflux disease) Malignant neoplasm of pancreas, unspecified Obstructive sleep apnea Surgical History History of back surgery History of surgery History of colonoscopy History of varicose veins of lower extremity History of surgery History of pancreatic surgery History of open reduction and internal fixation (ORIF) procedure H/O splenectomy History of cholecystectomy Family History Father Diabetes Advanced cardiac disease Mother Asthma Osteoporosis Brain cancer Brother Lung cancer Sister Breast cancer History of Coumadin therapy Brother Colostomy in place Daughter No problems noted. Son No problems noted. Social History Household Members: None Housing: House Do you presently have visiting nurse or other home services: No Alcohol intake: never Patient Tobacco Use Status: Current someday Tobacco user Tobacco use type: Cigarette Cigarette Packs Per Day: 0.5 Cigarettes Per Day: 8 Years Smoked: 50 e-Cigarette/Vaping Use: Never Used Second Hand Smoke Exposure: No Advance Directives Date on File: 12/11/21 service: No Current occupational status: retired Cognitive needs: No Hearing needs: No Vision needs: Yes Physical Exam Vital Signs: Last Vital Signs Pulse 79 09/25/23 08:27 BP 144/78 H 09/25/23 08:27 BMI result Body Mass Index 29.1 Absence of Cushingoid features. Absence of acromegalic features. Neck exam reveals nl size thyroid about 15 gms. No thyroid nodules palpable. No carotid bruits present. Lungs CTA. Heart S1 S2, Reg R/R. No M/R/ G. Skin exam reveals absence of vitiligo or acanthosis nigricans. Abdominal exam reveals Soft NT/ND with NA BS. No organomegaly present. Extrem Other: Visual exam of foot performed. No ulcerations or open lesions. No onchomycosis, no callouses.Pulses 2 + distally. Sensation intact to monofilament exam. 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 . Plan is to Increase Humalog by 1 unit at a time before breakfast over several days to keep point care from increasing post-. Patient would be a good candidate for a automated insulin delivery system particularly an iLet device. I gave her information on this. IIf she is interested in going this direction she was schedule follow-up with the conservation educator. . (2) Non-toxic multinodular goiter: Code(s): E04.2 - Nontoxic multinodular goiter Plan: This 67-year-old white female with a history of multinodular goiter status post FNA of left and right thyroid nodule with benign cytology. Recent thyroid ultrasounds are no appreciable change in the size of the nodules. She appears to be clinically euthyroid. Recent thyroid ultrasound shows stability in the size of the nodules Plan is to recheck TSH and free T4 . 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
== END 2023-09-25 09:05 | disposition home or self-care (01) ==
PROVIDERS: PCP Internal Medicine; Visit Provider Internal Medicine Endocrinology, Diabetes & Metabolism
DX: E13.9 Other specified diabetes mellitus without complications (principal); S36.209S Unspecified injury of unspecified part of pancreas, sequela; E04.2 Nontoxic multinodular goiter
CPT/HCPCS: 99214

== ENCOUNTER → 2023-09-25 08:26 | Outpatient (BNVA) | payer MEDICARE, OTHER, SELFPAY | PROVIDERS: PCP Internal Medicine; Visit Provider Internal Medicine Endocrinology, Diabetes & Metabolism | DX: E13.69 Other specified diabetes mellitus with other specified complication (principal); S36.209S Unspecified injury of unspecified part of pancreas, sequela; E04.2 Nontoxic multinodular goiter | CPT/HCPCS: 82947; 83036; 99212 ==

== ENCOUNTER 2023-10-01 09:41 | Outpatient (AMB) | payer MEDICARE, OTHER, SELFPAY ==
[2023-10-01 10:07] VITALS: BP 138/80; PULSE 77; O2SAT 97; BMI 28.8
--- NOTE | 2023-10-01 10:07 | MHC.PC.OV ---
Vital Signs 10/01/23 10:07 Height 5 ft 2.5 in Weight 160 lb BMI 28.8 BP 138/80 Blood Pressure Location Lt brachial Position Sitting Pulse 77 Pulse Source Pulse Oximeter Pulse Oximetry (%) 97 Oxygen Delivery Method Room Air Intake Visit Reasons: DM Allergies amoxicillin [AMOXICILLIN] Allergy (Unknown, Verified 10/01/23 10:07) HIVES azathioprine [From IMURAN] Allergy (Unknown, Verified 10/01/23 10:07) ABNORMAL LABS,HIVES etanercept [From ENBREL] Allergy (Unknown, Verified 10/01/23 10:07) HIVES infliximab [From REMICADE] Allergy (Unknown, Verified 10/01/23 10:07) RASH levofloxacin Allergy (Unknown, Verified 10/01/23 10:07) GI Upset nickel [NICKEL] Allergy (Unknown, Verified 10/01/23 10:07) UNKNOWN penicillin V Allergy (Unknown, Verified 10/01/23 10:07) hives Penicillins [PCN] Allergy (Unknown, Verified 10/01/23 10:07) HIVES tramadol Adverse Reaction (Verified 10/01/23 10:07) Nausea, sweating, dizzy Medication List - Last Reconciled 10/01/23 by Gloria Villarreal MD [AutoPAP 5-15 cm of water humidified AIR As directed] albuterol sulfate 90 mcg/actuation 1 puff inhalation QID PRN alendronate mg PO ascorbic acid (vitamin C) 500 mg PO DAILY 90 days atorvastatin 20 mg PO DAILY blood pressure monitor (Blood Pressure Kit) As directed blood sugar diagnostic (OneTouch Verio test strips) TEST 3 TIMES A DAY blood-glucose meter (OneTouch Verio Flex Start kit) As directed blood-glucose sensor (Dexcom G6 Sensor device) As directed certolizumab pegol (Cimzia) 200 mg subcut Q4W cholecalciferol (vitamin D3) 25 mcg PO DAILY fluticasone propionate 50 mcg/actuation (Flonase Allergy Relief) 2 sprays intranasal DAILY glucagon 3 mg/actuation (Baqsimi) 3 mg intranasal ONCE hydroxyzine HCl 25 mg PO TID PRN insulin glargine (Lantus Solostar U-100 Insulin) 20 units (0.2 mL) subcut BEDTIME insulin lispro (Humalog KwikPen (U-100) Insulin) inject 3-5 units prior to meals subcutaneously 3 times a day; levocetirizine 5 mg PO DAILY lisinopril 20 mg PO DAILY lorazepam 1 mg PO DAILY PRN 30 days multivitamin 1 tab PO DAILY nitrofurantoin monohyd/m-cryst 100 mg (Macrobid) 100 mg PO Q12H 7 days omega-3 fatty acids (Fish Oil Concentrate) 1,000 mg PO DAILY omeprazole 40 mg PO .prn ondansetron HCl 8 mg PO Q8H PRN pen needle, diabetic (Comfort EZ Pen Line [place]) As directed injects 4 X/day Tobacco use date assessed: 10/01/23 Fall risk assessment: No Falls in past year Last assessed Fall Risk: 10/01/23 Dental Screening Dental Screen Date: 10/01/23 Did you have a dental visit in the last 12 months?: Yes Did you have a dental problem in the last 6 months where you did not have access to dental care?: No Was dental information given to patient?: Patient has dentist HPI DM HPI Details 68-year-old overweight female smoker with 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 Patient does follow-up with Endocrinology for the diabetes Humalog and considering insulin delivery system as for the multinodular goiter biopsy-proven benign stable. [facility] for pharyngitis antibiotic was prescribed Bactrim. Patient also has seen marine engineer for the allergic rhinitis and hives has had allergy testing and autoimmune urticaria Flonase, Xyzal treatment. Patient also has followed up with Neurology for the sleep apnea continuing with APAP 5-15 cm water. Patient also sees Rheumatology for the Behcet's syndrome and osteoarthritis continuing with Cimzia, alendronate. For the bladder cancer goes to [facility] October 2017(low-grade bladder cancer as status post TURBT August 2021 in remission) had UTI, treated with BCG. Awaiting decision for the insulin pump. [facility] Medical History Intractable pain Pneumonia Daytime sleepiness Common bile duct dilatation Colon cancer screening Left hip pain Left knee pain Wheezes Low back pain radiating to left lower extremity Bladder cancer Behcet's disease COVID-19 virus infection Essential hypertension Uncontrolled diabetes mellitus Non-toxic multinodular goiter Dysuria Hyperlipidemia LDL goal <100 Vitamin D insufficiency 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 Thyroid nodule Right tibial fracture Tobacco abuse Fractured coccyx Pulmonary nodule History of DVT (deep vein thrombosis) Behcet's syndrome COPD (chronic obstructive pulmonary disease) Osteoporosis Anxiety GERD (gastroesophageal reflux disease) Malignant neoplasm of pancreas, unspecified Obstructive sleep apnea Surgical History History of back surgery History of surgery History of colonoscopy History of varicose veins of lower extremity History of surgery History of pancreatic surgery History of open reduction and internal fixation (ORIF) procedure H/O splenectomy History of cholecystectomy Family History Father Diabetes Advanced cardiac disease Mother Asthma Osteoporosis Brain cancer Brother Lung cancer Sister Breast cancer History of Coumadin therapy Brother Colostomy in place Daughter No problems noted. Son No problems noted. Social History Household Members: None Housing: House Do you presently have visiting nurse or other home services: No Alcohol intake: never Patient Tobacco Use Status: Current someday Tobacco user Tobacco use type: Cigarette Cigarette Packs Per Day: 0.5 Cigarettes Per Day: 8 Years Smoked: 50 e-Cigarette/Vaping Use: Never Used Second Hand Smoke Exposure: No Advance Directives Date on File: 12/11/21 service: No Current occupational status: retired Cognitive needs: No Hearing needs: No Vision needs: Yes Questionnaire PHQ-9 Over the last 2 weeks, how often have you been bothered by any of the following problems? 1. Little interest or pleasure in doing things: not at all 2. Feeling down, depressed, or hopeless: not at all 3. Trouble falling or staying asleep, or sleeping too much: not at all 4. Feeling tired or having little energy: not at all 5. Poor appetite or overeating: not at all 6. Feeling bad about yourself - or that you are a failure or have let yourself or your family down: not at all 7. Trouble concentrating on things, such as reading the newspaper or watching television: not at all 8. Moving or speaking so slowly that other people could have noticed. Or the opposite - being so fidgety or restless that you have been moving around a lot more than usual: not at all 9. Thoughts that you would be better off or of hurting yourself in some way: not at all Total score: 0 Depression Screening Interpretation: Negative Depression Screening Done: Yes Source: Developed by Drs. Sukhdeep Franz, Ana Alexander, Varinder Muro and colleagues, with an educational malachi from [employer]. Thrive Questionnaire Date Thrive assessed: 10/01/23 I am a: Patient What is your living situation today?: I have a steady place to live Within the past 12 months, did the food you bought not last and you didn't have the money to get more?: Never true Within the past 12 months, did you worry whether your food would run out before you got money to buy more?: Never true Do you have trouble paying for medicines?: No Do you have trouble getting transportation to medical appointments?: No Do you have trouble paying your heating and electricity bill?: No Do you have trouble taking care of your child, family member or friend?: No Do you have trouble with day-to-day activities such as bathing, preparing meals, shopping, managing finances, etc.?: No Are you currently unemployed and looking for a job?: No Are you interested in more education?: No Currently or been in a relationship where the following occur: no concerns reported AUDIT C Alcohol Use Questionnaire (AUDIT-C) 1. How often do you have a drink containing alcohol?: Never 3. How often do you have six or more drinks on one occasion?: Never Total Score: 0 Score Reviewed/Action Taken: No LISHA-7 AMB Questionnaire LISHA-7 Date LISHA - 7 assessed: 10/01/23 Feeling nervous, anxious, or on edge: 0 = Not at all Not being able to stop or control worryin = Not at all Worrying too much about different things: 0 = Not at all Trouble relaxin = Not at all Being so restless that it is hard to sit still: 0 = Not at all Becoming easily annoyed or irritable: 0 = Not at all Feeling afraid as if something awful might happen: 0 = Not at all Total LISHA-7 score (0-4 normal; 5-9 mild; 10-14 moderate; 15-21 severe): 0 Source: Developed by Drs. Sukhdeep Franz, Ana Alexander, Varinder Muro and colleagues, with an educational malachi from [employer]. Physical exam (Primary Care) Vital Signs: Last Vital Signs Pulse 77 10/01/23 10:07 BP 138/80 10/01/23 10:07 Pulse Ox 97 10/01/23 10:07 Oxygen Delivery Method Room Air 10/01/23 10:07 BMI result Body Mass Index 28.8 Tobacco/Smoking Status: Tobacco use Status Tobacco use date assessed 10/01/23 10/01/23 10:12 Patient Tobacco Use Status Current someday Tobacco 10/01/23 10:12 Tobacco use type Cigarette 10/01/23 10:12 e-Cigarette/Vaping Use Never Used 10/01/23 10:12 PHQ-9: PHQ-9 Score PHQ-9: Total score 0 10/01/23 10:49 Depression Screening Interpretation: Negative Thrive Assessment: Date of Thrive Assessment Date Thrive assessed 10/01/23 10/01/23 10:12 Currently or been in a relationship where the following occur: no concerns reported Const General: alert; No acute distress Eyes Conjunctivae: conjunctivae normal Resp Auscultation: clear to auscultation bilaterally Cardio Rate: regular rate Rhythm: regular rhythm GI Inspection: Yes normal to inspection Extrem General: Yes normal to inspection and No edema Results AMB Urinalysis, Automated UA Leukoctes 500 Chacho/uL Last Edit by Sarita Urbina CMA on 10/01/23 10:53 UA Nitrite Negative Last Edit by Sarita Urbina CMA on 10/01/23 10:53 UA Urobilinogen 0.2 mg/dL Last Edit by Sarita Urbina CMA on 10/01/23 10:53 UA Protein 0 mg/dL Last Edit by Sarita Urbina CMA on 10/01/23 10:53 UA pH 6.0 Last Edit by Sarita Urbina CMA on 10/01/23 10:53 UA Blood 0 Leonard/uL Last Edit by Sarita Urbina CMA on 10/01/23 10:53 UA Specific Bulger 1.015 Last Edit by Sarita Urbina CMA on 10/01/23 10:53 UA Ketone Negative Last Edit by Sarita Urbina CMA on 10/01/23 10:53 UA Bilirubin 0 mg/dL Last Edit by Sarita Urbina CMA on 10/01/23 10:53 UA Glucose 0 mg/dL Last Edit by Sarita Urbina CMA on 10/01/23 10:53 Assessment and Plan Assessment & Plan (1) Obstructive sleep apnea: Comment: Study done 01/02/2023 mild, AutoPAP 5-15 cm of water Code(s): G47.33 - Obstructive sleep apnea (adult) (pediatric) Plan: Patient follows up with Neurology and continue to use the CPAP more than 4 hours a night and benefits from this (2) GERD (gastroesophageal reflux disease): Code(s): K21.9 - Gastro-esophageal reflux disease without esophagitis Qualifiers: Esophagitis presence: without esophagitis Qualified Code(s): K21.9 - Gastro-esophageal reflux disease without esophagitis Plan: GERD plan (3) COPD (chronic obstructive pulmonary disease): Code(s): J44.9 - Chronic obstructive pulmonary disease, unspecified Qualifiers: COPD type: emphysema Emphysema type: unspecified Qualified Code(s): J43.9 - Emphysema, unspecified Plan: Patient is strongly advised to stop smoking! (4) Osteoporosis: Comment: Alendronate June 2012, September 2018 Code(s): M81.0 - Age-related osteoporosis without current pathological fracture Qualifiers: Osteoporosis type: age-related Presence of current pathological fracture: without current pathological fracture Qualified Code(s): M81.0 - Age-related osteoporosis without current pathological fracture Plan: Patient on alendronate will need follow-up bone density (5) Tobacco abuse: Code(s): Z72.0 - Tobacco use Plan: Patient is strongly advised to stop smoking (6) 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 Hicks Code(s): E13.9 - Other specified diabetes mellitus without complications; S36.209S - Unspecified injury of unspecified part of pancreas, sequela Plan: Decrease the amount of carbohydrate intake, pasta, bread, rice and potatoes are all sugar and that is aside from all the sweet stuff, remember that fruits are good but they are Sweet also. Patient follows up with endocrinology planned pump for insulin (7) Hyperlipidemia LDL goal <100: Code(s): E78.5 - Hyperlipidemia, unspecified Plan: Avoid fried foods, chicken skin, eggs, butter margarine, pastries and meat. Be it pork or beef they have a lot of cholesterol LDL goal of less than 100 and triglyceride of less than 150 (8) Generalized anxiety disorder: Comment: Declined any referral for counseling Code(s): F41.1 - Generalized anxiety disorder Plan: Continue with therapy (9) Urticaria: Code(s): L50.9 - Urticaria, unspecified Plan: Patient follows up with Allergy and immunology on Xyzal as well as Flonase (10) UTI (urinary tract infection): Code(s): N39.0 - Urinary tract infection, site not specified Plan: antibiotic sent Orders: Orders AMB Urinalysis Automated Today R30.0 - Dysuria, R35.0 - Frequency of micturition UA CC w/rflx Micro + Cult 2 Weeks N39.0 - Urinary tract infection, site not specified, R30.0 - Dysuria Medications: New nitrofurantoin monohyd/m-cryst 100 mg (Macrobid) must administer with a meal/food 100 mg PO Q12H 7 days 14 caps 0RF N39.0 - Urinary tract infection, site not specified Changed From lisinopril 20 mg PO DAILY 30 tabs 11RF I10 - Essential (primary) hypertension To lisinopril 30 mg PO DAILY 30 tabs 11RF I10 - Essential (primary) hypertension Refilled lorazepam 1 mg PO DAILY 30 days PRN 30 tabs 2RF anxiety I10 - Essential (primary) hypertension Coding Level of Care Code Est Pt Level 4 (12899) Diagnoses Obstructive sleep apnea G47.33 Gastroesophageal reflux disease without esophagitis K21.9 Esophagitis presence: without esophagitis Pulmonary emphysema, unspecified emphysema type J43.9 COPD type: emphysema Emphysema type: unspecified Age-related osteoporosis without current pathological fracture M81.0 Osteoporosis type: age-related Presence of current pathological fracture: without current pathological fracture Tobacco abuse Z72.0 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 E13.9; S36.209S Hyperlipidemia LDL goal <100 E78.5 Generalized anxiety disorder F41.1 Urticaria L50.9 UTI (urinary tract infection) N39.0 Additional Codes PHQ-9 - 75982 - PHQ-9 Billing: ([id number])
== END 2023-10-01 11:11 | disposition home or self-care (01) ==
PROVIDERS: PCP Internal Medicine; Visit Provider Internal Medicine
DX: R30.0 Dysuria (principal); R35.0 Frequency of micturition
CPT/HCPCS: 81003; 99214

== ENCOUNTER 2023-10-15 11:44 | Outpatient (REF) | payer MEDICARE, OTHER, SELFPAY ==
[2023-10-15 15:04] LABS: Appearance Urine Clear; Color Urine Yellow; Glucose Urine UA Negative (Negative); Leukocyte Esterase Urine Large (3+) (Negative); Nitrite Urine Negative (Negative); PH 7.5 (5.0-9.0); Specific Gravity - Urine <= 1.005 (1.005-1.025); UMIC TRIGGER UACC YES; Urine Blood Negative (Negative); Urine Ketones Negative (Negative); Urine Protein Negative (Neg-Trace)
[2023-10-15 15:07] LABS: Bacteria Urine None Seen (None Seen); Hyaline Casts Urine 0-2 /LPF (0-2); RBC Urine 0-2 /HPF (0-2); UACC Culture Trigger YES; WBC Urine 21-50 /HPF (0-5)
== END 2023-10-15 11:45 | disposition home or self-care (01) ==
LOC: HO.HMGCLDS 11:44
PROVIDERS: PCP Internal Medicine; Visit Provider Internal Medicine
DX: R30.0 Dysuria (principal); N39.0 Urinary tract infection, site not specified
CPT/HCPCS: 81001; 81003; 87086; 87147

== ENCOUNTER 2023-10-29 11:18 | Outpatient (REF) | payer MEDICARE, OTHER, SELFPAY ==
[2023-10-29 13:32] LABS: Appearance Urine Clear; Color Urine Yellow; Glucose Urine UA Negative (Negative); Leukocyte Esterase Urine Moderate (2+) (Negative); Nitrite Urine Negative (Negative); Specific Gravity - Urine <= 1.005 (1.005-1.025); UMIC TRIGGER UACC YES; Urine Blood Negative (Negative); Urine Ketones Negative (Negative); Urine Protein Negative (Neg-Trace)
[2023-10-29 13:41] LABS: Bacteria Urine None Seen (None Seen); Hyaline Casts Urine 0-2 /LPF (0-2); RBC Urine 0-2 /HPF (0-2); UACC Culture Trigger YES
== END 2023-10-29 11:19 | disposition home or self-care (01) ==
LOC: HO.HMGCLDS 11:18
PROVIDERS: PCP Internal Medicine; Visit Provider Internal Medicine
DX: R30.0 Dysuria (principal)
CPT/HCPCS: 81001; 87086; 87147

== ENCOUNTER 2024-01-02 08:23 | Outpatient (AMB) | payer MEDICARE, OTHER, SELFPAY ==
--- NOTE | 2024-01-02 08:31 | A.OFFPC_ITS ---
Vital Signs 01/02/24 08:33 Height 5 ft 2.5 in Weight 160 lb BMI 28.8 BP 130/80 Blood Pressure Location Lt brachial Position Sitting Pulse 76 Pulse Source Pulse Oximeter Pulse Oximetry (%) 97 Oxygen Delivery Method Room Air Intake Visit Reasons: HTN DM , Intake Note: Patient is here to follow up on HTN, DM. [employer] Required: No Manager Inventory: Not Required per policy Accompanied by: Self / Same As Patient Allergies amoxicillin [AMOXICILLIN] Allergy (Unknown, Verified 01/02/24 08:32) HIVES azathioprine [From IMURAN] Allergy (Unknown, Verified 01/02/24 08:32) ABNORMAL LABS,HIVES etanercept [From ENBREL] Allergy (Unknown, Verified 01/02/24 08:32) HIVES infliximab [From REMICADE] Allergy (Unknown, Verified 01/02/24 08:32) RASH levofloxacin Allergy (Unknown, Verified 01/02/24 08:32) GI Upset nickel [NICKEL] Allergy (Unknown, Verified 01/02/24 08:32) UNKNOWN penicillin V Allergy (Unknown, Verified 01/02/24 08:32) hives Penicillins [PCN] Allergy (Unknown, Verified 01/02/24 08:32) HIVES tramadol Adverse Reaction (Verified 01/02/24 08:32) Nausea, sweating, dizzy Medication List - Last Reconciled 01/02/24 by Gloria Villarreal MD [AutoPAP 5-15 cm of water humidified AIR As directed] albuterol sulfate 90 mcg/actuation 1 puff inhalation QID PRN alendronate mg PO ascorbic acid (vitamin C) 500 mg PO DAILY 90 days atorvastatin 20 mg PO DAILY blood pressure monitor (Blood Pressure Kit) As directed blood sugar diagnostic (OneTouch Verio test strips) TEST 3 TIMES A DAY blood-glucose meter (OneTouch Verio Flex Start kit) As directed blood-glucose sensor ([employer] G6 Sensor device) As directed certolizumab pegol (Cimzia) 200 mg subcut Q4W cholecalciferol (vitamin D3) 25 mcg PO DAILY fluticasone propionate 50 mcg/actuation (Flonase Allergy Relief) 2 sprays intranasal DAILY glucagon 3 mg/actuation (Baqsimi) 3 mg intranasal ONCE hydroxyzine HCl 25 mg PO TID PRN insulin glargine (Lantus Solostar U-100 Insulin) 20 units (0.2 mL) subcut BEDTIME insulin lispro (Humalog KwikPen (U-100) Insulin) inject 3-5 units prior to meals subcutaneously 3 times a day; levocetirizine 5 mg PO DAILY lisinopril 30 mg PO DAILY lorazepam 1 mg PO DAILY PRN 30 days multivitamin 1 tab PO DAILY omega-3 fatty acids (Fish Oil Concentrate) 1,000 mg PO DAILY omeprazole 40 mg PO .prn ondansetron HCl 8 mg PO Q8H PRN pen needle, diabetic (Comfort EZ Pen Laona) As directed injects 4 X/day Tobacco use date assessed: 01/02/24 Fall risk assessment: No Falls in past year Last assessed Fall Risk: 01/02/24 Dental Screening Dental Screen Date: 10/01/23 HPI HTN DM , HPI Details 68-year-old overweight female smoker wit h uncontrolled diabetes mellitus, obstructive sleep apnea GERD COPD hypercholesterolemia generalized anxiety disorder coming in for follow-up. Last seen in September 2023. Mammogram is up-to-date colonoscopy is up-to-date June 2022. will see Dr. Grimm has dysuria and recurrent UTI finds problem in [facility] and so went to [facility] - will have a cystoscopy 01/14/2024. Also for the PET scan May requested by oncologist. 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 Thyroid nodule Right tibial fracture Tobacco abuse Fractured coccyx Pulmonary nodule History of DVT (deep vein thrombosis) Behcet's syndrome COPD (chronic obstructive pulmonary disease) Osteoporosis Anxiety GERD (gastroesophageal reflux disease) Malignant neoplasm of pancreas, unspecified Obstructive sleep apnea Surgical History History of back surgery History of surgery History of colonoscopy History of varicose veins of lower extremity History of surgery History of pancreatic surgery History of open reduction and internal fixation (ORIF) procedure H/O splenectomy History of cholecystectomy Family History Father Diabetes Advanced cardiac disease Mother Asthma Osteoporosis Brain cancer Brother Lung cancer Sister Breast cancer History of Coumadin therapy Brother Colostomy in place Daughter No problems noted. Son No problems noted. Social History Household Members: None Housing: House Do you presently have visiting nurse or other home services: No Alcohol intake: never Patient Tobacco Use Status: Current everyday Tobacco user Tobacco use type: Cigarette Cigarette Packs Per Day: 1 Cigarettes Per Day: 13 Years Smoked: 50 e-Cigarette/Vaping Use: Never Used Second Hand Smoke Exposure: No Advance Directives Date on File: 12/11/21 service: No Current occupational status: retired Cognitive needs: No Hearing needs: No Vision needs: Yes Questionnaire Thrive Questionnaire Date Thrive assessed: 10/01/23 LISHA-7 AMB Questionnaire LISHA-7 Date LISHA - 7 assessed: 10/01/23 Source: Developed by Drs. Sukhdeep Franz, Ana Alexander, Varinder Muro and colleagues, with an educational malachi from [employer]. Physical exam (Primary Care) Tobacco/Smoking Status: Tobacco use Status Tobacco use date assessed 10/01/23 10/01/23 10:12 Patient Tobacco Use Status Current someday Tobacco 10/01/23 10:12 Tobacco use type Cigarette 10/01/23 10:12 e-Cigarette/Vaping Use Never Used 10/01/23 10:12 Thrive Assessment: Date of Thrive Assessment Date Thrive assessed 10/01/23 10/01/23 10:12 Const General: alert; No acute distress Eyes Conjunctivae: conjunctivae normal Resp Auscultation: clear to auscultation bilaterally Cardio Rate: regular rate Rhythm: regular rhythm GI Inspection: Yes normal to inspection Extrem General: Yes normal to inspection and No edema Results AMB Hemoglobin A1c AMB Hemoglobin A1c 8.7 % Last Edit by NARA Wolf on 01/02/24 08:46 Assessment and Plan Assessment & Plan (1) 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 Hicks Code(s): E13.9 - Other specified diabetes mellitus without complications; S36.209S - Unspecified injury of unspecified part of pancreas, sequela Plan: Decrease the amount of carbohydrate intake, pasta, bread, rice and potatoes are all sugar and that is aside from all the sweet stuff, remember that fruits are good but they are Sweet also. Presently on Lantus 20 units once a day Humalog sliding scale (2) Hyperlipidemia LDL goal <100: Code(s): E78.5 - Hyperlipidemia, unspecified Plan: Avoid fried foods, chicken skin, eggs, butter margarine, pastries and meat. Be it pork or beef they have a lot of cholesterol LDL goal of less than 100 and triglyceride of less than 150 on atorvastatin 20 mg once a day (3) Tobacco abuse: Code(s): Z72.0 - Tobacco use Plan: Patient is strongly advised to stop smoking! (4) COPD (chronic obstructive pulmonary disease): Code(s): J44.9 - Chronic obstructive pulmonary disease, unspecified Qualifiers: COPD type: emphysema Emphysema type: unspecified Qualified Code(s): J43.9 - Emphysema, unspecified Plan: Stop smoking! Continue with the albuterol inhaler as needed (5) GERD (gastroesophageal reflux disease): Code(s): K21.9 - Gastro-esophageal reflux disease without esophagitis Qualifiers: Esophagitis presence: without esophagitis Qualified Code(s): K21.9 - Gastro-esophageal reflux disease without esophagitis Plan: Avoid the foods that causes that usually spicy foods, tomato products, juices, coffee, soda and foods that your sensitive to. After eating do not lie down, allow 3-4 hours before in lie down. And keep the head of bed above 30 degrees to avoid the acid from going up. (6) Osteoporosis: Comment: Alendronate June 2012, September 2018 Code(s): M81.0 - Age-related osteoporosis without current pathological fracture Qualifiers: Osteoporosis type: age-related Presence of current pathological fracture: without current pathological fracture Qualified Code(s): M81.0 - Age- related osteoporosis without current pathological fracture Plan: Patient is reminded about bone density (7) Obstructive sleep apnea: Comment: Study done 01/02/2023 mild, AutoPAP 5-15 cm of water Code(s): G47.33 - Obstructive sleep apnea (adult) (pediatric) Plan: Continue with CPAP more than 4 hours a night and benefits from the (8) Malignant neoplasm of pancreas, unspecified: Comment: Dr. Driver, Dr. Angeles sent to Dr. Pope 10/2017 CT scan September 2019 status post distal pancreatectomy 2017 Code(s): C25.9 - Malignant neoplasm of pancreas, unspecified Plan: Presently being monitored (9) Generalized anxiety disorder: Comment: Declined any referral for counseling Code(s): F41.1 - Generalized anxiety disorder Plan: Continue with present medication lorazepam (10) Essential hypertension: Code(s): I10 - Essential (primary) hypertension Plan: Continue with blood pressure medication. 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
[2024-01-02 08:33] VITALS: BP 130/80; PULSE 76; O2SAT 97; BMI 28.8
== END 2024-01-02 09:15 | disposition home or self-care (01) ==
PROVIDERS: PCP Internal Medicine; Visit Provider Internal Medicine
DX: E13.9 Other specified diabetes mellitus without complications (principal); J43.9 Emphysema, unspecified; C25.9 Malignant neoplasm of pancreas, unspecified; S36.209S Unspecified injury of unspecified part of pancreas, sequela; E78.5 Hyperlipidemia, unspecified; Z72.0 Tobacco use; K21.9 Gastro-esophageal reflux disease without esophagitis; M81.0 Age-related osteoporosis without current pathological fracture; G47.33 Obstructive sleep apnea (adult) (pediatric); F41.1 Generalized anxiety disorder; I10 Essential (primary) hypertension
CPT/HCPCS: 83036; 99214

== ENCOUNTER 2024-01-21 11:20 | Outpatient (AMB) | payer MEDICARE, OTHER, SELFPAY ==
[2024-01-21 11:22] VITALS: BP 160/80; PULSE 73; BMI 29.3
--- NOTE | 2024-01-21 11:22 | MHC.OFFVIS ---
Vital Signs 01/21/24 11:22 Height 5 ft 2.5 in Weight 162 lb 14.746 oz BMI 29.3 BP 160/80 H Blood Pressure Location Lt brachial Position Sitting Pulse 73 Pulse Source Pulse Oximeter Intake Visit Reasons: Type 2 dm Intake Note: Patient presents today to follow up on DMT. Last Diabetic Eye exam: 10/2023 Last Podiatry Visit: 12/01/23 Random Glucose: 197 mg/dl HgA1c: 8.7% 01/02/24 Chrome [employer]ater Required: No Accompanied by: Self / Same As Patient Allergies amoxicillin [AMOXICILLIN] Allergy (Unknown, Verified 01/21/24 11:27) HIVES azathioprine [From IMURAN] Allergy (Unknown, Verified 01/21/24 11:27) ABNORMAL LABS,HIVES etanercept [From ENBREL] Allergy (Unknown, Verified 01/21/24 11:27) HIVES infliximab [From REMICADE] Allergy (Unknown, Verified 01/21/24 11:27) RASH levofloxacin Allergy (Unknown, Verified 01/21/24 11:27) GI Upset nickel [NICKEL] Allergy (Unknown, Verified 01/21/24 11:27) UNKNOWN penicillin V Allergy (Unknown, Verified 01/21/24 11:27) hives Penicillins [PCN] Allergy (Unknown, Verified 01/21/24 11:27) HIVES tramadol Adverse Reaction (Verified 01/21/24 11:27) Nausea, sweating, dizzy Medication List - Last Reconciled 01/21/24 by Sukhdeep Grimm MD [AutoPAP 5-15 cm of water humidified AIR As directed] albuterol sulfate 90 mcg/actuation 1 puff inhalation QID PRN alendronate mg PO ascorbic acid (vitamin C) 500 mg PO DAILY 90 days atorvastatin 20 mg PO DAILY blood pressure monitor (Blood Pressure Kit) As directed blood sugar diagnostic (OneTouch Verio test strips) TEST 3 TIMES A DAY blood-glucose meter (OneTouch Verio Flex Start kit) As directed blood-glucose sensor ([employer] G6 Sensor device) As directed certolizumab pegol (Cimzia) 200 mg subcut Q4W cholecalciferol (vitamin D3) 25 mcg PO DAILY fluticasone propionate 50 mcg/actuation (Flonase Allergy Relief) 2 sprays intranasal DAILY glucagon 3 mg/actuation (Baqsimi) 3 mg intranasal ONCE hydroxyzine HCl 25 mg PO TID PRN insulin glargine (Lantus Solostar U-100 Insulin) 20 units (0.2 mL) subcut BEDTIME insulin lispro (Humalog KwikPen (U-100) Insulin) inject 3-5 units prior to meals subcutaneously 3 times a day; levocetirizine 5 mg PO DAILY lisinopril 30 mg PO DAILY lorazepam 1 mg PO DAILY PRN 30 days multivitamin 1 tab PO DAILY omega-3 fatty acids (Fish Oil Concentrate) 1,000 mg PO DAILY omeprazole 40 mg PO .prn ondansetron HCl 8 mg PO Q8H PRN pen needle, diabetic (BD Ultra-Fine Margaret Pen Needle) USE 4 PEN NEEDLES DAILY WITH INSULIN HPI Comments Details: ?Patient is 68 yo female with DM diagnosed with diabetes s/p pancreatectomy in October 2017, who presents for continued management of diabetes.? Past medical history: malignant neoplasm of the pancreas with resection on 11/06/17, 30+ years of smoking quit in 2018, anxiety, osteoporosis, depression, MNG Bechet's Syndrome,? bladder ca w/ resection in late 2020 ?Diabetes medications: Lantus 20 units daily? Currentlly using 2? units Previous scale was Humalog Kwik pen 1 unit for small meals, 2 units for medium meals and 3 units for large meals plus correction scale.? 0.5 units for snack at night. ? Humalog correction for bg ? >200 0.5 unit ? >250 1.0 unit ? >300 1.5 unit ? Lantus for prednisone 20 units. ? Humalog for prednisone use:? ? 5 units for small meals 7 units for large meals plus a correction scale ? ? ? >200 2 unit ? >250 3 unit ? >300 4 unit ? >350 5 unit Continuous glucose monitoring:? For the past 2 weeks average blood glucose 152 ?74 % in? target range of 70-180. 25% high, over 0?% very high, over 250.? CGM is active 50%.? Coefficient variation 39.? . Symptoms:? reports? numbness and tingling in lower extremities Hypoglycemia:? rarely but happens when more active Hyperglycemia: + polyuria,? but drinks tea frequently Exercise: very active around home and works in her yard Eye exam: last appt 10/2023 -? 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 Thyroid nodule Right tibial fracture Tobacco abuse Fractured coccyx Pulmonary nodule History of DVT (deep vein thrombosis) Behcet's syndrome COPD (chronic obstructive pulmonary disease) Osteoporosis Anxiety GERD (gastroesophageal reflux disease) Malignant neoplasm of pancreas, unspecified Obstructive sleep apnea Surgical History History of back surgery History of surgery History of colonoscopy History of varicose veins of lower extremity History of surgery History of pancreatic surgery History of open reduction and internal fixation (ORIF) procedure H/O splenectomy History of cholecystectomy Family History Father Diabetes Advanced cardiac disease Mother Asthma Osteoporosis Brain cancer Brother Lung cancer Sister Breast cancer History of Coumadin therapy Brother Colostomy in place Daughter No problems noted. Son No problems noted. Social History (Updated 01/02/24 @ 08:42 by NARA Wolf) Household Members: None Housing: House Do you presently have visiting nurse or other home services: No Alcohol intake: never Patient Tobacco Use Status: Current everyday Tobacco user Tobacco use type: Cigarette Cigarette Packs Per Day: 1 Cigarettes Per Day: 13 Years Smoked: 50 e-Cigarette/Vaping Use: Never Used Second Hand Smoke Exposure: No Advance Directives Date on File: 12/11/21 service: No Current occupational status: retired Cognitive needs: No Hearing needs: No Vision needs: Yes Physical Exam Vital Signs: Last Vital Signs Pulse 73 01/21/24 11:22 BP 160/80 H 01/21/24 11:22 BMI result Body Mass Index 29.3 Absence of Cushingoid features. Absence of acromegalic features. Neck exam reveals nl size thyroid about 15 gms. No thyroid nodules palpable. No carotid bruits present. Lungs CTA. Heart S1 S2, Reg R/R. No M/R/ G. Skin exam reveals absence of vitiligo or acanthosis nigricans. Abdominal exam reveals Soft NT/ND with NA BS. No organomegaly present. Extrem Other: Visual exam of foot performed. No ulcerations or open lesions. No onchomycosis, no callouses.Pulses 2 + distally. Sensation intact to monofilament exam. 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 Hicks Code(s): E13.9 - Other specified diabetes mellitus without complications; S36.209S - Unspecified injury of unspecified part of pancreas, sequela Category: Medical Plan: This 68-year-old white female with a history of diabetes status post pancreatectomy being treated with basal -bolus insulin with improved good glycemic control over the past week and no known microvascular or macrovascular complications. . Plan is to continue the current regimen Patient would be a good candidate for a automated insulin delivery system particularly an iLet device. I gave her information on this. IIf she is interested in going this direction she was schedule follow-up with the photo tech. . Will instruct patient to use the Dexcom sensor more frequently (2) Non-toxic multinodular goiter: Code(s): E04.2 - Nontoxic multinodular goiter Category: Medical Plan: This 67-year-old white female with a history of multinodular goiter status post FNA of left and right thyroid nodule with benign cytology. Recent thyroid ultrasounds are no appreciable change in the size of the nodules. She appears to be clinically euthyroid. 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
== END 2024-01-21 12:02 | disposition home or self-care (01) ==
PROVIDERS: PCP Internal Medicine; Visit Provider Internal Medicine Endocrinology, Diabetes & Metabolism
DX: E13.9 Other specified diabetes mellitus without complications (principal); S36.209S Unspecified injury of unspecified part of pancreas, sequela; E04.2 Nontoxic multinodular goiter
CPT/HCPCS: 99214

== ENCOUNTER → 2024-01-21 11:20 | Outpatient (BNVA) | payer MEDICARE, OTHER, SELFPAY | PROVIDERS: PCP Internal Medicine; Visit Provider Internal Medicine Endocrinology, Diabetes & Metabolism | DX: E13.9 Other specified diabetes mellitus without complications (principal); S36.209S Unspecified injury of unspecified part of pancreas, sequela; E04.2 Nontoxic multinodular goiter; Z79.899 Other long term (current) drug therapy; Z79.4 Long term (current) use of insulin; X58.XXXS Exposure to other specified factors, sequela | CPT/HCPCS: 82947; 99212 ==

== ENCOUNTER 2024-02-02 08:58 | Outpatient (AMB) | payer MEDICARE, OTHER, SELFPAY ==
--- NOTE | 2024-02-02 09:37 | A.OFFVIS_ITS ---
Intake Intake Visit Reasons: DM/LVM Pulmonary Function Technician Required: No Accompanied by: Self / Same As Patient Allergies amoxicillin [AMOXICILLIN] Allergy (Unknown, Verified 01/21/24 11:27) HIVES azathioprine [From IMURAN] Allergy (Unknown, Verified 01/21/24 11:) ABNORMAL LABS,HIVES etanercept [From ENBREL] Allergy (Unknown, Verified 01/21/24 11:) HIVES infliximab [From REMICADE] Allergy (Unknown, Verified 01/21/24 11:) RASH levofloxacin Allergy (Unknown, Verified 01/21/24 11:) GI Upset nickel [NICKEL] Allergy (Unknown, Verified 01/21/24 11:) UNKNOWN penicillin V Allergy (Unknown, Verified 01/21/24 11:) hives Penicillins [PCN] Allergy (Unknown, Verified 01/21/24 11:) HIVES tramadol Adverse Reaction (Verified 01/21/24 11:) Nausea, sweating, dizzy HPI Comprehensive Diabetes Asmnt Most Recent Diabetes Results: Microalb/Creat Ratio 12.2 ug/mg cr (<30) 06/16/23 Cholesterol 144 mg/dL (<200) 06/16/23 HDL Cholesterol 44 mg/dL (>40) 06/16/23 Triglycerides 102 mg/dL (<150) 06/16/23 Creatinine 0.78 mg/dL (0.5-1.4) 06/16/23 Blood Urea Nitrogen 12 mg/dL (9-16) 06/16/23 Sodium 140 mmol/L (135-145) 06/16/23 Potassium 4.1 mmol/L (3.3-5.1) 06/16/23 Chloride 105 mmol/L (96-108) 06/16/23 Carbon Dioxide 24 mmol/L (22-29) 06/16/23 Calcium 9.4 mg/dL (8.4-10.2) 06/16/23 AST 22 U/L (5-31) 06/16/23 ALT 20 U/L (0-31) 06/16/23 Total Protein 7.4 g/dL (6.5-8.0) 06/16/23 Albumin 4.1 g/dL (3.5-5.0) 06/16/23 [facility] Medical History (Updated 01/02/24 @ 08:41 by Gloria Villarreal MD) Intractable pain Pneumonia Daytime sleepiness Common bile duct dilatation Colon cancer screening Left hip pain Left knee pain Wheezes Low back pain radiating to left lower extremity Bladder cancer Behcet's disease COVID-19 virus infection Essential hypertension Uncontrolled diabetes mellitus Non-toxic multinodular goiter Dysuria Hyperlipidemia LDL goal <100 Vitamin D insufficiency 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 Thyroid nodule Right tibial fracture Tobacco abuse Fractured coccyx Pulmonary nodule History of DVT (deep vein thrombosis) Behcet's syndrome COPD (chronic obstructive pulmonary disease) Osteoporosis Anxiety GERD (gastroesophageal reflux disease) Malignant neoplasm of pancreas, unspecified Obstructive sleep apnea Surgical History History of back surgery History of surgery History of colonoscopy History of varicose veins of lower extremity History of surgery History of pancreatic surgery History of open reduction and internal fixation (ORIF) procedure H/O splenectomy History of cholecystectomy Family History Father Diabetes Advanced cardiac disease Mother Asthma Osteoporosis Brain cancer Brother Lung cancer Sister Breast cancer History of Coumadin therapy Brother Colostomy in place Daughter No problems noted. Son No problems noted. 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 Hicks Code(s): E13.9 - Other specified diabetes mellitus without complications; S36.209S - Unspecified injury of unspecified part of pancreas, sequela Plan: Pump Assessment: Type of DM: type 1 Previous DKA: no Current Insulin Rx: MDI Patient takes insulin as prescribed: yes Patient? checks BG Dexcom G7 Downloaded meter today? yes Is for the past 7 days 152 mg/dL Patient? reports glycemic control as: Good Most recent Hgb A1C: 8.7% Frequency of low BG: Several times a week Low BG treatment: Fruit juice Frequency of high BG: Several times a week Does patient check Ketones? No Reviewed with patient rules about testing for ketones, will send message to Dr. Grimm to send prescription for ketone strips to patient's pharmacy Has pt been on a pump in the past? No Reviewed insulin pump basics today with Patient. Explained pros and cons of insulin pumps. Showed pt various pumps, infusion sets, and cgms currently available. Reviewed need to wear pump / and need to change infusion set every 3 days. Also stressed importance of frequent BG checks, 4x daily minimum or use pump that is integrated with CGM.? TDD:74 units Patient demonstrated motivation for continued insulin pump education and understands the need to complete education prior to starting insulin pump for best outcome. Will follow up for continued education Patient at visit to set up an insert Dexcom G7 Instructed patient sensors water proof you can shower, or swim do not submerge sensor in water for over 30 minutes Is sensor falls off cannot put back in you need to replace sensor, customer service number given to patient for sensor replacement Sensor placed on the back of L arm Patient left visit with sensor in warmup Reviewed how to interpret trend arrows Reminded patient that to check finger sticks if symptoms do not match sensor reading. Discussed lag time between finger stick and sensor data.? Instructed patient she should always keep blood glucometer for backup testing if needed Reviewed delay of CGM from fingersticks Reminded pt that if symptoms do not match sensor still needs to check fingersticks. Patient Instructions: DIABETES PROBLEMS HOMECARE INSTRUCTIONS? for High Blood Sugar and When to Test for Ketones Hyperglycemia is the technical term for high blood glucose (blood sugar). High blood sugar happens when the body has too little insulin or when the body can't use insulin properly. What causes hyperglycemia? A number of things can cause hyperglycemia: * If you have type 1, you may not have given yourself enough insulin. ? If you have type 2, your body may have enough insulin, but it is not as effective as it should be. * You ate more than planned or exercised less than planned. * You have stress from an illness, such as a cold or flu. * You have other stress, such as family conflicts or school or dating problems. How to lower your blood sugar level. ? Take medications as directed by physician. ? Drink extra water or noncaffeinated, nonsugared drinks to prevented hydration. ? Exercise if you are not sick However, if your blood sugar is above 250 mg/dl, check your urine for ketones. If you have ketones, do not exercise Exercising when ketones are present may make your blood sugar level go even higher. You'll need to work with your doctor to find the safest way for you to lower your blood sugar level. Regularly check blood sugar or urine for sugar and acetone during illness. Diabetic ketoacidosis (DKA) Is serious condition that can lead to diabetic coma (passing out for a long time) or even . When your cells don't get the glucose they need for energy, your body begins to burn fat for energy, which produces ketones. Ketones are chemicals that the body creates when it breaks down fat to use for energy. The body does this when it doesn?t have enough insulin to use glucose, the body?s normal source of energy. When ketones build up in the blood, they make it more acidic. They are a warning sign that your diabetes is out of control or that you are getting sick. Symptoms of Diabetic Ketoacidosis (DKA) ? DKA usually develops slowly. But when vomiting occurs, this life- threatening condition can develop in a few hours. Early symptoms include the following: ? Thirst or a very dry mouth ? Frequent urination ? High blood glucose (blood sugar) levels ? High levels of ketones in the urine ? Then, other symptoms appear: ? Constantly feeling tired ? Dry or flushed skin ? Nausea, vomiting, or abdominal pain ? (Vomiting can be caused by many illnesses, not just ketoacidosis. If vomiting continues for more than 2 hours, contact your health care provider.) ? Difficulty breathing ? Fruity odor on breath ? A hard time paying attention, or confusion When should you test for ketones? It is advisable to check for ketones under the following conditions when: Your blood glucose is higher than 250mg/dl. Feeling nauseated, throwing up, or have pains in your abdominal region. Have a cold or flu. Have general body fatigue. Feel thirsty or have a very dry mouth. Have flushed skin. Have a fruity breath or a hard time breathing. You feel perplexed or in fog. How to Test Urine for Ketones You can detect ketones with a simple urine test using a test strip, similar to a blood testing strip. Ask your health care provider when and how you should test for ketones. Many experts advise to check your urine for ketones when your blood glucose is more than 250 mg/dl. When you are ill (when you have a cold or the flu, for example), check for ketones every 4 to 6 hours. And check every 4 to 6 hours when your blood sugar is more than 250 mg/dl. Also, check for ketones when you have any symptoms of DKA. How to lower your blood sugar level. ? Take medications as directed by physician. ? Drink extra water or noncaffeinated, nonsugared drinks to prevented hydration. ? Exercise if you are not sick However, if your blood sugar is above 250 mg/dl, check your urine for ketones. If you have ketones, do not exercise Exercising when ketones are present may make your blood sugar level go even higher. You'll need to work with your doctor to find the safest way for you to lower your blood sugar level. 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
== END 2024-02-02 10:06 | disposition home or self-care (01) ==
PROVIDERS: PCP Internal Medicine; Visit Provider Registered Nurse Diabetes Educator
DX: E13.9 Other specified diabetes mellitus without complications (principal); S36.209S Unspecified injury of unspecified part of pancreas, sequela

== ENCOUNTER → 2024-02-02 08:58 | Outpatient (BNVA) | payer MEDICARE, OTHER, SELFPAY | PROVIDERS: PCP Internal Medicine; Visit Provider Registered Nurse Diabetes Educator | DX: E13.9 Other specified diabetes mellitus without complications (principal); S36.209S Unspecified injury of unspecified part of pancreas, sequela | CPT/HCPCS: 99211 ==

== ENCOUNTER 2024-02-09 07:21 | Outpatient (REF) | payer MEDICARE, OTHER, SELFPAY ==
[2024-02-09 10:46] LABS: Glucose Fasting 88 mg/dL (60-99)
[2024-02-10 13:08] LABS: C Peptide 0.48 ng/mL (0.80-3.85)
== END 2024-02-09 07:22 | disposition home or self-care (01) ==
LOC: HO.HMGCLDS 07:21
PROVIDERS: PCP Internal Medicine; Visit Provider Internal Medicine Endocrinology, Diabetes & Metabolism
DX: E13.9 Other specified diabetes mellitus without complications (principal); S36.209S Unspecified injury of unspecified part of pancreas, sequela
CPT/HCPCS: 36415; 82947; 84681

== ENCOUNTER 2024-04-28 06:57 | Outpatient (AMB) | payer MEDICARE, OTHER, SELFPAY ==
--- NOTE | 2024-04-28 08:34 | MHC.AMDMED ---
Intake Intake Visit Reasons: pump training-confirmed Rivet Passer Required: No Accompanied by: Self / Same As Patient Allergies amoxicillin [AMOXICILLIN] Allergy (Unknown, Verified 01/21/24 11:27) HIVES azathioprine [From IMURAN] Allergy (Unknown, Verified 01/21/24 11:27) ABNORMAL LABS,HIVES etanercept [From ENBREL] Allergy (Unknown, Verified 01/21/24 11:) HIVES infliximab [From REMICADE] Allergy (Unknown, Verified 01/21/24 11:) RASH levofloxacin Allergy (Unknown, Verified 01/21/24 11:) GI Upset nickel [NICKEL] Allergy (Unknown, Verified 01/21/24 11:) UNKNOWN penicillin V Allergy (Unknown, Verified 01/21/24 11:) hives Penicillins [PCN] Allergy (Unknown, Verified 01/21/24 11:) HIVES tramadol Adverse Reaction (Verified 01/21/24 11:) Nausea, sweating, dizzy HPI Comprehensive Diabetes Asmnt Most Recent Diabetes Results: Microalb/Creat Ratio 12.2 ug/mg cr (<30) 06/16/23 Cholesterol 144 mg/dL (<200) 06/16/23 HDL Cholesterol 44 mg/dL (>40) 06/16/23 Triglycerides 102 mg/dL (<150) 06/16/23 Creatinine 0.78 mg/dL (0.5-1.4) 06/16/23 Blood Urea Nitrogen 12 mg/dL (9-16) 06/16/23 Sodium 140 mmol/L (135-145) 06/16/23 Potassium 4.1 mmol/L (3.3-5.1) 06/16/23 Chloride 105 mmol/L (96-108) 06/16/23 Carbon Dioxide 24 mmol/L (22-29) 06/16/23 Calcium 9.4 mg/dL (8.4-10.2) 06/16/23 AST 22 U/L (5-31) 06/16/23 ALT 20 U/L (0-31) 06/16/23 Total Protein 7.4 g/dL (6.5-8.0) 06/16/23 Albumin 4.1 g/dL (3.5-5.0) 06/16/23 [facility] Medical History (Updated 01/02/24 @ 08:41 by Gloria Villarreal MD) Intractable pain Pneumonia Daytime sleepiness Common bile duct dilatation Colon cancer screening Left hip pain Left knee pain Wheezes Low back pain radiating to left lower extremity Bladder cancer Behcet's disease COVID-19 virus infection Essential hypertension Uncontrolled diabetes mellitus Non-toxic multinodular goiter Dysuria Hyperlipidemia LDL goal <100 Vitamin D insufficiency 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 Thyroid nodule Right tibial fracture Tobacco abuse Fractured coccyx Pulmonary nodule History of DVT (deep vein thrombosis) Behcet's syndrome COPD (chronic obstructive pulmonary disease) Osteoporosis Anxiety GERD (gastroesophageal reflux disease) Malignant neoplasm of pancreas, unspecified Obstructive sleep apnea Surgical History History of back surgery History of surgery History of colonoscopy History of varicose veins of lower extremity History of surgery History of pancreatic surgery History of open reduction and internal fixation (ORIF) procedure H/O splenectomy History of cholecystectomy Family History Father Diabetes Advanced cardiac disease Mother Asthma Osteoporosis Brain cancer Brother Lung cancer Sister Breast cancer History of Coumadin therapy Brother Colostomy in place Daughter No problems noted. Son No problems noted. 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 Hicks Code(s): E13.9 - Other specified diabetes mellitus without complications; S36.209S - Unspecified injury of unspecified part of pancreas, sequela Plan: Patient presents for pump training for iLet pump and CGM training today. The following topics were reviewed today: -Pump therapy basic concepts: Basal/bolus -Device settings: Bluetooth/mobile connection (if applicable), correct date and time, sound volume -CGM settings(if integrated system): CGM graft views and trend arrows, alerts and alarms, Start new sensor Insulin delivery settings Instructed patient to only use room temperature insulin, how to load cartridge or fill pod, with insulin. Fill tubing and cannula (if applicable) Inserting infusion set or starting pod Troubleshooting after starting new pod or inserting new insulin set: Occlusion, adhesive tape sensitivity, redness Check BG 2 hours after site change Safety information: Importance of a backup plan, for manual injections, proper prescriptions and emergency supplies ketone strips, and rules for testing for ketones Patient was able to insert insulin set today without difficulty. Patient understands the basic concepts of pump therapy, how to give insulin for meals and snacks, how to troubleshoot for hyper and hypoglycemia. We were unable to connect insulin pump to patient's phone, patient's iPhone 7 can not run [employer]ix mikie. Licha Ladd pump instructor trainer canine service will connect with patient's daughter to download mikie on her phone so that when they are together pump data will be uploaded Patient will follow up with CDE as instructed Patient will contact CDE with questions or concerns, patient given IT number to support in any technical issues related to insulin pump Portions of this note were created using voice recognition software, please excuse any words or phrases that may have been misinterpreted. 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
== END 2024-04-28 09:04 | disposition home or self-care (01) ==
PROVIDERS: PCP Internal Medicine; Visit Provider Registered Nurse Diabetes Educator
DX: E13.9 Other specified diabetes mellitus without complications (principal); S36.209S Unspecified injury of unspecified part of pancreas, sequela

== ENCOUNTER → 2024-04-28 06:57 | Outpatient (BNVA) | payer MEDICARE, OTHER, SELFPAY | PROVIDERS: PCP Internal Medicine; Visit Provider Registered Nurse Diabetes Educator | DX: E13.9 Other specified diabetes mellitus without complications (principal); S36.209S Unspecified injury of unspecified part of pancreas, sequela | CPT/HCPCS: 99211 ==

== ENCOUNTER 2024-05-04 09:34 | Outpatient (AMB) | payer MEDICARE, OTHER, SELFPAY ==
--- NOTE | 2024-05-04 09:35 | A.OFFVIS_ITS ---
Vital Signs 05/04/24 09:36 Height 5 ft 2.5 in Weight 158 lb 11.725 oz BMI 28.6 BP 140/88 H Blood Pressure Location Rt brachial Position Sitting Pulse 76 Pulse Source Pulse Oximeter Intake Visit Reasons: T2DM/CONFIRMED Intake Note: Patient presents today to re-establish treatment for Type 2 Diabetes Mellitus: Last Diabetic eye exam was on: 10/2023 Last Podiatry exam was on: DUE, has a coming up appt Most recent HbA1c: 8.5%, 05/04/2024 Random Glucose- 111 mg/dL, Today Heading Repairer Required: No Accompanied by: Self / Same As Patient Allergies amoxicillin [AMOXICILLIN] Allergy (Unknown, Verified 05/04/24 09:42) HIVES azathioprine [From IMURAN] Allergy (Unknown, Verified 05/04/24 09:42) ABNORMAL LABS,HIVES etanercept [From ENBREL] Allergy (Unknown, Verified 05/04/24 09:42) HIVES infliximab [From REMICADE] Allergy (Unknown, Verified 05/04/24 09:42) RASH levofloxacin Allergy (Unknown, Verified 05/04/24 09:42) GI Upset nickel [NICKEL] Allergy (Unknown, Verified 05/04/24 09:42) UNKNOWN penicillin V Allergy (Unknown, Verified 05/04/24 09:42) hives Penicillins [PCN] Allergy (Unknown, Verified 05/04/24 09:42) HIVES tramadol Adverse Reaction (Verified 05/04/24 09:42) Nausea, sweating, dizzy HPI Comments Details: ?Patient is 68 yo female with DM diagnosed with diabetes s/p pancreatectomy in October 2017, who presents for continued management of diabetes.? Past medical history: malignant neoplasm of the pancreas with resection on 11/06/17, 30+ years of smoking quit in 2018, anxiety, osteoporosis, depression, MNG Bechet's Syndrome,? bladder ca w/ resection in late 2020 ?Diabetes medications: Lantus 18-20 units daily?back up insulin plan She was recently started on an islet insulin pump. She had some problems over the weekend with the pump telling her to change her reservoir after 2 days despite fact that she had insulin in place. She did use lantus insulin for back up until she was able to work through the issues with the islet IT. She reports she is a little unsure was set changes and still getting a custom to the technology and has questions about entering her usual meals. Dexcom average glucose: [139 ] Glucose Management indicator [ more data required%] TIme in range: [0] % very high (above 250) 13.7 % high (181-250) 85.1 % in range (70-180] 0.2 % low (69-55) 0 % very low (below 54) [ 35] Standard Deviation Total daily dose 23.2 basal 11.4. Symptoms:? reports? numbness and tingling in lower extremities Hypoglycemia:? rarely but happens when more active Hyperglycemia: + polyuria,? but drinks tea frequently Exercise: very active around home and works in her yard Eye exam: last appt 10/2023 -? no retinopathy she has a podiatry exam this week. She had a small problem with the great toe in the corner of the nail bed. No longer reddened. EXAMINATION: US THYROID CLINICAL INFORMATION: Nontoxic multinodular goiter. COMPARISON: Thyroid ultrasound 02/21/2022 and 02/05/2021. Ultrasound-guided thyroid biopsy 03/08/2021. TECHNIQUE: Linear transducer grayscale and color Doppler examination with attention to the region of the thyroid. FINDINGS: SIZE: Measurements of the thyroid lobes and nodules are given in sagittal, anteroposterior and transverse dimensions respectively. Right Thyroid Lobe: 4.6 x 1.9 x 1.5 cm, volume 6.7 mL. Previously 4.5 x 1.7 x 1.6 cm, volume 6.4 mL. Parenchyma: The gland echotexture is homogeneous. Thyroid vascularity is normal. Left Thyroid Lobe: 4.3 x 2.3 x 1.7 cm, volume 8.5 mL. Previously 4.4 x 1.7 x 1.9 cm, volume 7.4 mL. Parenchyma: The gland echotexture is homogeneous. Thyroid vascularity is normal. Isthmus: 0.5 cm in maximum AP dimension. Previously 0.4 cm. Estimated total number of nodules greater than or equal to 1 cm: 2. Registered Radiation Therapist nodules are described as follows: 1. Location: Right mid pole. Size: 0.8 x 0.8 x 0.8 cm, volume 0.28 mL. Previously: 1.0 x 0.7 x 1.0 cm, volume 0.39 mL. Nodule characteristics: Composition: Mixed cystic and solid (1). Echogenicity: Isoechoic (1). Shape: Not taller than wide (0). Margins: Smooth (0). Echogenic Foci: Punctate echogenic foci (3). ACR TI-RADS total points: 5 Previous: 5 ACR TI-RADS category: 4 Previous: 4 Significant change in size (>/= 20% in 2 dimensions and minimal increase of 2 mm or 50% or greater increase in volume): No 2. Location: Left mid pole. Size: 1.6 x 0.9 x 1.1 cm, volume 0.84 mL. Previously: 1.5 x 0.9 x 1.1 cm, volume 0.80 mL. Nodule characteristics: Composition: Mixed cystic and solid (1). Echogenicity: Hypoechoic (2). Shape: Not taller than wide (0). Margins: Smooth (0). Echogenic Foci: No definite calcification appreciated over punctate echogenic foci (0) ACR TI-RADS total points: 3 Previous: 3 ACR TI-RADS category: 3 Previous: 3 Significant change in size (>/= 20% in 2 dimensions and minimal increase of 2 mm or 50% or greater increase in volume): No 3. Location: Left mid pole. Size: 1.1 x 0.5 x 0.9 cm, volume 0.27 mL. Previously: 1.1 x 0.6 x 1.0 cm, volume 0.31 mL. Composition: Mixed cystic and solid (1). Echogenicity: Hypoechoic (2). Shape: Not taller than wide (0). Margins: Smooth (0). Echogenic Foci: None (0). ACR TI-RADS total points: 3 Previous: 0 ACR TI-RADS category: 3 Previous: 1 Significant change in size (>/= 20% in 2 dimensions and minimal increase of 2 mm or 50% or greater increase in volume): No Change in features: Yes, appears less spongiform on today's exam Change in ACR TI-RADS risk category: Yes 4. Location: Left lower pole. Size: 0.4 x 0.3 x 0.5 cm, volume 0.03 mL. Previously: 0.4 x 0.4 x 0.4 cm, volume 0.03 mL. Nodule characteristics: Composition: Cystic(0). ACR TI-RADS total points: 0 Previous: 0 ACR TI-RADS category: 1 Previous: 1 5. Location: Left lower pole. Size: 0.5 x 0.2 x 0.4 cm, volume 0.02 mL. Previously: Not seen previously. Nodule characteristics: Composition: Spongiform (0). ACR TI-RADS total points: 0 ACR TI-RADS category: 1 NODES: No lymphadenopathy is seen in the tissue surrounding the thyroid gland. US/US thyroid IMPRESSION: A 0.8 cm TR 4 right thyroid nodule is not significantly changed in size. This was previously sampled. Recommend correlation with prior pathology. A 1.6 cm TR 3 left midpole thyroid nodule is not significantly changed in size and meets criteria for continued surveillance. Remainder of thyroid nodule does not meet criteria for follow-up. 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 Thyroid nodule Right tibial fracture Tobacco abuse Fractured coccyx Pulmonary nodule History of DVT (deep vein thrombosis) Behcet's syndrome COPD (chronic obstructive pulmonary disease) Osteoporosis Anxiety GERD (gastroesophageal reflux disease) Malignant neoplasm of pancreas, unspecified Obstructive sleep apnea Surgical History History of back surgery History of surgery History of colonoscopy History of varicose veins of lower extremity History of surgery History of pancreatic surgery History of open reduction and internal fixation (ORIF) procedure H/O splenectomy History of cholecystectomy Family History Father Diabetes Advanced cardiac disease Mother Asthma Osteoporosis Brain cancer Brother Lung cancer Sister Breast cancer History of Coumadin therapy Brother Colostomy in place Daughter No problems noted. Son No problems noted. Social History Household Members: None Housing: House Do you presently have visiting nurse or other home services: No Alcohol intake: never Patient Tobacco Use Status: Current everyday Tobacco user Tobacco use type: Cigarette Cigarette Packs Per Day: 1 Cigarettes Per Day: 13 Years Smoked: 50 e-Cigarette/Vaping Use: Never Used Second Hand Smoke Exposure: No Advance Directives Date on File: 12/11/21 service: No Current occupational status: retired Cognitive needs: No Hearing needs: No Vision needs: Yes Physical Exam Vital Signs: Last Vital Signs Pulse 76 05/04/24 09:36 BP 140/88 H 05/04/24 09:36 BMI result Body Mass Index 28.6 Const Other: Absence of Cushingoid features. Absence of acromegalic features. Neck exam reveals nl size thyroid about 15 gms. No thyroid nodules palpable. No carotid bruits present. Denies on ultrasound she uses this month ultrasound in a year okay okay when we check on the shows her lower before com in Heart S1 S2, Reg R/R. No M/R G. Skin exam reveals absence of vitiligo or acanthosis nigricans. 1 Extrem Other: Visual exam of foot performed. No ulcerations or open lesions. + onchomycosis, no callouses. Sensation diminshed to monofilament exam. Vibratory sensation is diminished with 128 Hz tuning fork. Results AMB Hemoglobin A1c AMB Hemoglobin A1c 8.5 % Last Edit by NARA Schaffer on 05/04/24 10:02 Results Reviewed Results Reviewed: Laboratory Last Values Glucose (Clinic) 111 mg/dL (60-115) 05/04/24 09:47 Laboratory Tests 06/16/23 09/25/23 01/02/24 06:14 08:44 08:30 Potassium 4.1 BUN 12 Creatinine 0.78 Estimated GFR > 60 Hgb A1c (Clinic) 8.7 H 8.7 H Hemoglobin A1c % 7.9 H C-Peptide AST 22 ALT 20 Triglycerides 102 Cholesterol 144 LDL Cholesterol, Calc 80 HDL Cholesterol 44 Urine Creatinine 81.95 Urine Microalbumin 10.0 Microalb/Creat Ratio 12.2 02/09/24 07:27 Potassium BUN Creatinine Estimated GFR Hgb A1c (Clinic) Hemoglobin A1c % C-Peptide 0.48 L AST ALT Triglycerides Cholesterol LDL Cholesterol, Calc HDL Cholesterol Urine Creatinine Urine Microalbumin Microalb/Creat Ratio Assessment & Plan Assessment & Plan (1) 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 She will be seeing the community health educator later this morning and is requesting clarification on meal announcements and set changes. Had difficulty over the weekend with pump requesting early set change and needed to use [employer] for assistance. Orders: Orders Basic Metabolic Panel 3 Months E13.9 - Other specified diabetes mellitus without complications, S36.209S - Unspecified injury of unspecified part of pancreas, sequela Lipid Panel 3 Months E13.9 - Other specified diabetes mellitus without complications, S36.209S - Unspecified injury of unspecified part of pancreas, sequela AMB Hemoglobin A1c Today E11.65 - Type 2 diabetes mellitus with hyperglycemia, Z79.4 - terminal make up operator (current) use of insulin Microalbumin, Random (w Creat) 3 Months E13.9 - Other specified diabetes mellitus without complications, S36.209S - Unspecified injury of unspecified part of pancreas, sequela Thyroid Stimulating Hormone 3 Months E13.9 - Other specified diabetes mellitus without complications, S36.209S - Unspecified injury of unspecified part of pancreas, sequela Creatinine Urine 3 Months E13.9 - Other specified diabetes mellitus without complications, S36.209S - Unspecified injury of unspecified part of pancreas, sequela Medications: New glucagon 3 mg/actuation (Baqsimi) 3 mg intranasal BID 30 days PRN 2 ea 1RF unresponsive hypoglycemia E13.9 - Other specified diabetes mellitus without complications, S36.209S - Unspecified injury of unspecified part of pancreas, sequela Patient Instructions: Symptoms of DKA were reviewed: early: frequent urination, dry mouth, fatigue, feeling ill, severe symptoms: ketones in the urine, abdominal pain, nausea, vomiting and weakness. It is important to hydrate with sugar free liquids every 30 minutes and bring the sugars down to normal levels. Backup insulin plan. 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
[2024-05-04 09:36] VITALS: BP 140/88; PULSE 76; BMI 28.6
[2024-05-04 09:51] LABS: Glucose, Whole Blood 111 mg/dL (60-115)
== END 2024-05-04 10:18 | disposition home or self-care (01) ==
PROVIDERS: PCP Internal Medicine; Visit Provider Nurse Practitioner Adult Health
DX: E11.65 Type 2 diabetes mellitus with hyperglycemia (principal); Z79.4 Long term (current) use of insulin; E13.9 Other specified diabetes mellitus without complications; S36.209S Unspecified injury of unspecified part of pancreas, sequela
CPT/HCPCS: 99214; G2211

== ENCOUNTER 2024-05-04 09:34 | Outpatient (AMB) | payer MEDICARE, OTHER, SELFPAY ==
--- NOTE | 2024-05-04 11:17 | MHC.AMDMED ---
Intake Intake Visit Reasons: DM-confirmed Meat Molder Required: No Accompanied by: Self / Same As Patient Allergies amoxicillin [AMOXICILLIN] Allergy (Unknown, Verified 05/04/24 09:42) HIVES azathioprine [From IMURAN] Allergy (Unknown, Verified 05/04/24 09:42) ABNORMAL LABS,HIVES etanercept [From ENBREL] Allergy (Unknown, Verified 05/04/24 09:42) HIVES infliximab [From REMICADE] Allergy (Unknown, Verified 05/04/24 09:42) RASH levofloxacin Allergy (Unknown, Verified 05/04/24 09:42) GI Upset nickel [NICKEL] Allergy (Unknown, Verified 05/04/24 09:42) UNKNOWN penicillin V Allergy (Unknown, Verified 05/04/24 09:42) hives Penicillins [PCN] Allergy (Unknown, Verified 05/04/24 09:42) HIVES tramadol Adverse Reaction (Verified 05/04/24 09:42) Nausea, sweating, dizzy HPI Comprehensive Diabetes Asmnt Most Recent Diabetes Results: No Data to Display [facility] Medical History Intractable pain Pneumonia Daytime sleepiness Common bile duct dilatation Colon cancer screening Left hip pain Left knee pain Wheezes Low back pain radiating to left lower extremity Bladder cancer Behcet's disease COVID-19 virus infection Essential hypertension Uncontrolled diabetes mellitus Non-toxic multinodular goiter Dysuria Hyperlipidemia LDL goal <100 Vitamin D insufficiency 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 Thyroid nodule Right tibial fracture Tobacco abuse Fractured coccyx Pulmonary nodule History of DVT (deep vein thrombosis) Behcet's syndrome COPD (chronic obstructive pulmonary disease) Osteoporosis Anxiety GERD (gastroesophageal reflux disease) Malignant neoplasm of pancreas, unspecified Obstructive sleep apnea Surgical History History of back surgery History of surgery History of colonoscopy History of varicose veins of lower extremity History of surgery History of pancreatic surgery History of open reduction and internal fixation (ORIF) procedure H/O splenectomy History of cholecystectomy Family History Father Diabetes Advanced cardiac disease Mother Asthma Osteoporosis Brain cancer Brother Lung cancer Sister Breast cancer History of Coumadin therapy Brother Colostomy in place Daughter No problems noted. Son No problems noted. 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 The following topics were reviewed today: -Pump therapy basic concepts: Basal/bolus -Always dose 15 minutes prior to meals - Off pump backup insulin plan ??? High Alert: 300 mg/dl ??? Low Alert: 75 mg/dl CGM : Patient above target 13.7 % Patient at target 86.1% Patient below target 0.2% Patient's average glucose for the 3 days worth of data was 139 mg/dL Patient's data is being uploaded by her daughter's phone TDD:23.2 units Basal:11.4 Reviewed with patient how to change out insulin delivery set Patient has not been announcing meals Instructed patient to only use room temperature insulin, how to load cartridge or fill pod, with insulin. Fill tubing and cannula (if applicable) Troubleshooting after starting new pod or inserting new insulin set: Occlusion, adhesive tape sensitivity, redness Check BG 2 hours after site change Reviewed Safety information: Importance of a backup plan, for manual injections, proper prescriptions and emergency supplies ketone strips, and rules for testing for ketones Patient understands the basic concepts of pump therapy, how to give insulin for meals and snacks, how to troubleshoot for hyper and hypoglycemia. Patient will follow up with [facility] as instructed Patient will contact [facility] with questions or concerns, patient given IT number to support in any technical issues related to insulin pump Portions of this note were created using voice recognition software, please excuse any words or phrases that may have been misinterpreted. 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
== END 2024-05-04 11:23 | disposition home or self-care (01) ==
PROVIDERS: PCP Internal Medicine; Visit Provider Registered Nurse Diabetes Educator
DX: E13.9 Other specified diabetes mellitus without complications (principal); S36.209S Unspecified injury of unspecified part of pancreas, sequela

== ENCOUNTER → 2024-05-04 09:34 | Outpatient (BNVA) | payer MEDICARE, OTHER, SELFPAY | PROVIDERS: PCP Internal Medicine; Visit Provider Registered Nurse Diabetes Educator | DX: E13.9 Other specified diabetes mellitus without complications (principal); S36.209S Unspecified injury of unspecified part of pancreas, sequela | CPT/HCPCS: 82947; 83036; 99211; 99212 ==

== ENCOUNTER 2024-05-18 07:24 | Outpatient (AMB) | payer MEDICARE, OTHER, SELFPAY ==
--- NOTE | 2024-05-18 08:21 | MHC.AMDMED ---
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: No Accompanied by: Self / Same As Patient Allergies amoxicillin [AMOXICILLIN] Allergy (Unknown, Verified 05/04/24 09:42) HIVES azathioprine [From IMURAN] Allergy (Unknown, Verified 05/04/24 09:42) ABNORMAL LABS,HIVES etanercept [From ENBREL] Allergy (Unknown, Verified 05/04/24 09:42) HIVES infliximab [From REMICADE] Allergy (Unknown, Verified 05/04/24 09:42) RASH levofloxacin Allergy (Unknown, Verified 05/04/24 09:42) GI Upset nickel [NICKEL] Allergy (Unknown, Verified 05/04/24 09:42) UNKNOWN penicillin V Allergy (Unknown, Verified 05/04/24 09:42) hives Penicillins [PCN] Allergy (Unknown, Verified 05/04/24 09:42) HIVES tramadol Adverse Reaction (Verified 05/04/24 09:42) Nausea, sweating, dizzy HPI Comprehensive Diabetes Asmnt Most Recent Diabetes Results: No Data to Display [facility] Medical History Intractable pain Pneumonia Daytime sleepiness Common bile duct dilatation Colon cancer screening Left hip pain Left knee pain Wheezes Low back pain radiating to left lower extremity Bladder cancer Behcet's disease COVID-19 virus infection Essential hypertension Uncontrolled diabetes mellitus Non-toxic multinodular goiter Dysuria Hyperlipidemia LDL goal <100 Vitamin D insufficiency 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 Thyroid nodule Right tibial fracture Tobacco abuse Fractured coccyx Pulmonary nodule History of DVT (deep vein thrombosis) Behcet's syndrome COPD (chronic obstructive pulmonary disease) Osteoporosis Anxiety GERD (gastroesophageal reflux disease) Malignant neoplasm of pancreas, unspecified Obstructive sleep apnea Surgical History History of back surgery History of surgery History of colonoscopy History of varicose veins of lower extremity History of surgery History of pancreatic surgery History of open reduction and internal fixation (ORIF) procedure H/O splenectomy History of cholecystectomy Family History Father Diabetes Advanced cardiac disease Mother Asthma Osteoporosis Brain cancer Brother Lung cancer Sister Breast cancer History of Coumadin therapy Brother Colostomy in place Daughter No problems noted. Son No problems noted. 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 The following topics were reviewed today: -Pump therapy basic concepts: Basal/bolus -Always dose 15 minutes prior to meals - Off pump backup insulin plan iLet Alerts: ??? High Alert: 300 mg/dl ??? Low Alert: 75 mg/dl CGM: Above target: 16.3% At target: 83% Below target:0.7% Patient's average glucose for the past 5 days 141 mg/dL TDD:19.2 units Basal:33 units Patient reports having allergic reaction to steal cannula on true steel insulin delivery set At today's visit instructed patient on how to use Inset insulin delivery set Instructed patient to only use room temperature insulin, how to load cartridge or fill pod, with insulin. Fill tubing and cannula (if applicable) Troubleshooting after starting new pod or inserting new insulin set: Occlusion, adhesive tape sensitivity, redness Check BG 2 hours after site change Reviewed Safety information: Importance of a backup plan, for manual injections, proper prescriptions and emergency supplies ketone strips, and rules for testing for ketones Patient understands the basic concepts of pump therapy, how to give insulin for meals and snacks, how to troubleshoot for hyper and hypoglycemia. Patient will follow up with [facility] as instructed Patient will contact [facility] with questions or concerns, patient given IT number to support in any technical issues related to insulin pump Portions of this note were created using voice recognition software, please excuse any words or phrases that may have been misinterpreted. 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
== END 2024-05-18 08:28 | disposition home or self-care (01) ==
PROVIDERS: PCP Internal Medicine; Visit Provider Registered Nurse Diabetes Educator
DX: E13.9 Other specified diabetes mellitus without complications (principal); S36.209S Unspecified injury of unspecified part of pancreas, sequela

== ENCOUNTER → 2024-05-18 07:24 | Outpatient (BNVA) | payer MEDICARE, OTHER, SELFPAY | PROVIDERS: PCP Internal Medicine; Visit Provider Registered Nurse Diabetes Educator | DX: E13.9 Other specified diabetes mellitus without complications (principal); S36.209S Unspecified injury of unspecified part of pancreas, sequela | CPT/HCPCS: 99211 ==

== ENCOUNTER 2024-05-20 08:26 | Outpatient (AMB) | payer MEDICARE, OTHER, SELFPAY ==
--- NOTE | 2024-05-20 08:32 | A.OFFPC_ITS ---
Vital Signs 05/20/24 08:33 Height 5 ft 2.5 in Weight 162 lb BMI 29.2 BP 160/98 H Blood Pressure Location Rt brachial Position Sitting Pulse 79 Pulse Source Pulse Oximeter Pulse Oximetry (%) 98 Oxygen Delivery Method Room Air Intake Visit Reasons: DM ., HTN, LISHA, CHARLI Allergies amoxicillin [AMOXICILLIN] Allergy (Unknown, Verified 05/20/24 08:34) HIVES azathioprine [From IMURAN] Allergy (Unknown, Verified 05/20/24 08:34) ABNORMAL LABS,HIVES etanercept [From ENBREL] Allergy (Unknown, Verified 05/20/24 08:34) HIVES infliximab [From REMICADE] Allergy (Unknown, Verified 05/20/24 08:34) RASH levofloxacin Allergy (Unknown, Verified 05/20/24 08:34) GI Upset nickel [NICKEL] Allergy (Unknown, Verified 05/20/24 08:34) UNKNOWN penicillin V Allergy (Unknown, Verified 05/20/24 08:34) hives Penicillins [PCN] Allergy (Unknown, Verified 05/20/24 08:34) HIVES tramadol Adverse Reaction (Verified 05/20/24 08:34) Nausea, sweating, dizzy Tobacco use date assessed: 01/02/24 Fall risk assessment: No Falls in past year Last assessed Fall Risk: 05/20/24 Dental Screening Dental Screen Date: 10/01/23 HPI DM ., HTN, LISHA, CHARLI HPI Details 69-year-old overweight female smoker wit h diabetes mellitus hypertension hypercholesterolemia COPD GERD osteoporosis obstructive sleep apnea pancreatic cancer(resection of 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 Last seen in December 2023. Patient is up-to-date with colonoscopy in 07/11/2022 mammogram is up-to-date. Patient has been following up with endocrinology on the eyelid pump and CGM. Received notes also from Allergy and immunology 04/10/2024 idiopathic urticaria on Xyzal was added Flonase patient is for penicillin testing. Patient also follows up with Hematology-Oncology [facility] patient besides the pancreatic tumor had also bladder papillary urothelial carcinoma being followed by Urology concern about suspicious sites having intra-abdominal nodules and continued to be monitored. Patient also is having blood work under your rheumatology sed rate of 12 patient is being seen for the osteoporosis, alendronate, osteoarthritis of the knee and visits on Cimzia.. concern that neighbor has cancer. 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 Thyroid nodule Right tibial fracture Tobacco abuse Fractured coccyx Pulmonary nodule History of DVT (deep vein thrombosis) Behcet's syndrome COPD (chronic obstructive pulmonary disease) Osteoporosis Anxiety GERD (gastroesophageal reflux disease) Malignant neoplasm of pancreas, unspecified Obstructive sleep apnea Surgical History History of back surgery History of surgery History of colonoscopy History of varicose veins of lower extremity History of surgery History of pancreatic surgery History of open reduction and internal fixation (ORIF) procedure H/O splenectomy History of cholecystectomy Family History Father Diabetes Advanced cardiac disease Mother Asthma Osteoporosis Brain cancer Brother Lung cancer Sister Breast cancer History of Coumadin therapy Brother Colostomy in place Daughter No problems noted. Son No problems noted. Social History Household Members: None Housing: House Do you presently have visiting nurse or other home services: No Alcohol intake: never Patient Tobacco Use Status: Current everyday Tobacco user Tobacco use type: Cigarette Cigarette Packs Per Day: 1 Cigarettes Per Day: 13 Years Smoked: 50 Packs Per Year: 50 Packs per year/per ci.50 e-Cigarette/Vaping Use: Never Used Second Hand Smoke Exposure: No Advance Directives Date on File: 12/11/21 service: No Current occupational status: retired Cognitive needs: No Hearing needs: No Vision needs: Yes Questionnaire PHQ-9 Over the last 2 weeks, how often have you been bothered by any of the following problems? 1. Little interest or pleasure in doing things: not at all 2. Feeling down, depressed, or hopeless: not at all 3. Trouble falling or staying asleep, or sleeping too much: not at all 4. Feeling tired or having little energy: not at all 5. Poor appetite or overeating: not at all 6. Feeling bad about yourself - or that you are a failure or have let yourself or your family down: not at all 7. Trouble concentrating on things, such as reading the newspaper or watching television: not at all 8. Moving or speaking so slowly that other people could have noticed. Or the opposite - being so fidgety or restless that you have been moving around a lot more than usual: not at all 9. Thoughts that you would be better off or of hurting yourself in some way: not at all Total score: 0 Depression Screening Interpretation: Negative Depression Screening Done: Yes Source: Developed by Drs. Sukhdeep Franz, Ana Alexander, Varinder Muro and colleagues, with an educational malachi from [employer]. Thrive Questionnaire Date Thrive assessed: 10/01/23 AUDIT C Alcohol Use Questionnaire (AUDIT-C) 1. How often do you have a drink containing alcohol?: Never 3. How often do you have six or more drinks on one occasion?: Never Total Score: 0 Score Reviewed/Action Taken: No LISHA-7 AMB Questionnaire LISHA-7 Date LISHA - 7 assessed: 10/01/23 Source: Developed by Drs. Sukhdeep Franz, Ana Alexander, Varinder Muro and colleagues, with an educational malachi from [employer]. Physical exam (Primary Care) Vital Signs: Last Vital Signs Pulse 79 05/20/24 08:33 BP 160/98 H 05/20/24 08:33 Pulse Ox 98 05/20/24 08:33 Oxygen Delivery Method Room Air 05/20/24 08:33 BMI result Body Mass Index 29.2 Tobacco/Smoking Status: Tobacco use Status Tobacco use date assessed 01/02/24 05/20/24 08:38 Patient Tobacco Use Status Current everyday Tobacco 05/20/24 08:38 Tobacco use type Cigarette 05/20/24 08:38 e-Cigarette/Vaping Use Never Used 05/20/24 08:38 PHQ-9: PHQ-9 Score PHQ-9: Total score 0 05/20/24 08:38 Depression Screening Interpretation: Negative Thrive Assessment: Date of Thrive Assessment Date Thrive assessed 10/01/23 05/20/24 08:38 Const General: alert; No acute distress Eyes Conjunctivae: conjunctivae normal Resp Auscultation: clear to auscultation bilaterally Cardio Rate: regular rate Rhythm: regular rhythm GI Inspection: Yes normal to inspection Extrem General: Yes normal to inspection and No edema Assessment and Plan Assessment & Plan (1) 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 Hemoglobin A1c goal of less than 7.0. Patient is being followed up by Endocrinology and is on the insulin pump. stressed about the ilet having a tomy but can kink. (2) Hyperlipidemia LDL goal <100: Code(s): E78.5 - Hyperlipidemia, unspecified Plan: Avoid fried foods, chicken skin, eggs, butter margarine, pastries and meat. Be it pork or beef they have a lot of cholesterol patient is taking atorvastatin 20 mg once a day but has not had blood work for cholesterol yet and reminded about this. (3) Tobacco abuse: Code(s): Z72.0 - Tobacco use Plan: Patient is advised to strongly stop smoking! (4) COPD (chronic obstructive pulmonary disease): Code(s): J44.9 - Chronic obstructive pulmonary disease, unspecified Qualifiers: COPD type: emphysema Emphysema type: unspecified Qualified Code(s): J43.9 - Emphysema, unspecified Plan: Patient is advised to stop smoking! On albuterol right now (5) Osteoporosis: Comment: Alendronate June 2012, September 2018 Code(s): M81.0 - Age-related osteoporosis without current pathological fracture Qualifiers: Osteoporosis type: age-related Presence of current pathological fracture: without current pathological fracture Qualified Code(s): M81.0 - Age- related osteoporosis without current pathological fracture Plan: Patient is being seen by Rheumatology on alendronate and awaiting bone density (6) GERD (gastroesophageal reflux disease): Code(s): K21.9 - Gastro-esophageal reflux disease without esophagitis Qualifiers: Esophagitis presence: without esophagitis Qualified Code(s): K21.9 - Gastro-esophageal reflux disease without esophagitis Plan: Avoid the foods that causes that usually spicy foods, tomato products, juices, coffee, soda and foods that your sensitive to. After eating do not lie down, allow 3-4 hours before in lie down. And keep the head of bed above 30 degrees to avoid the acid from going up. (7) Malignant neoplasm of pancreas, unspecified: Comment: Dr. Driver, Dr. Angeles sent to Dr. Pope 10/2017 CT scan September 2019 status post distal pancreatectomy 2017 Code(s): C25.9 - Malignant neoplasm of pancreas, unspecified Plan: Continue to follow-up with Hematology-Oncology concern about intra-abdominal nodule (8) Obstructive sleep apnea: Comment: Study done 01/02/2023 mild, AutoPAP 5-15 cm of water Code(s): G47.33 - Obstructive sleep apnea (adult) (pediatric) Plan: Continue to use the CPAP more than 4 hours a night and benefits from this (9) Bladder mass: Comment: Urinary bladder cancer Code(s): N32.89 - Other specified disorders of bladder Plan: Patient continues to follow-up with urology (10) Essential hypertension: Code(s): I10 - Essential (primary) hypertension Plan: Continue with blood pressure medication. Decrease salt intake and exercise on lisinopril 30 mg once a day Orders: Orders Comprehensive Met. 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 E13.9; S36.209S Hyperlipidemia LDL goal <100 E78.5 Tobacco abuse Z72.0 Pulmonary emphysema, unspecified emphysema type J43.9 COPD type: emphysema Emphysema type: unspecified Age-related osteoporosis without current pathological fracture M81.0 Osteoporosis type: age-related Presence of current pathological fracture: without current pathological fracture Gastroesophageal reflux disease without esophagitis K21.9 Esophagitis presence: without esophagitis Malignant neoplasm of pancreas, unspecified C25.9 Obstructive sleep apnea G47.33 Bladder mass N32.89 Essential hypertension I10 Additional Codes PHQ-9 - 66736 - PHQ-9 Billing: ([id number])
[2024-05-20 08:33] VITALS: BP 160/98; PULSE 79; O2SAT 98; BMI 29.2
== END 2024-05-20 09:15 | disposition home or self-care (01) ==
PROVIDERS: PCP Internal Medicine; Visit Provider Internal Medicine
DX: E13.9 Other specified diabetes mellitus without complications (principal); J43.9 Emphysema, unspecified; C25.9 Malignant neoplasm of pancreas, unspecified; S36.209S Unspecified injury of unspecified part of pancreas, sequela; E78.5 Hyperlipidemia, unspecified; Z72.0 Tobacco use; M81.0 Age-related osteoporosis without current pathological fracture; K21.9 Gastro-esophageal reflux disease without esophagitis; G47.33 Obstructive sleep apnea (adult) (pediatric); N32.89 Other specified disorders of bladder; I10 Essential (primary) hypertension
CPT/HCPCS: 99214; G2211

== ENCOUNTER 2024-05-21 10:12 | Outpatient (AMB) | payer MEDICARE, OTHER, SELFPAY ==
--- NOTE | 2024-05-21 10:12 | A.OFFVIS_ITS ---
Vital Signs 05/21/24 10:19 Height 5 ft 2.5 in Weight 160 lb 14.999 oz BMI 29.0 BP 146/88 H Blood Pressure Location Rt brachial Position Sitting Pulse 66 Pulse Source Pulse Oximeter Intake Visit Reasons: Pump issues Intake Note: Patient presents today to address insulin pump issues: Last Diabetic eye exam was on: 10/2023 Last Podiatry exam was on: DUE, has a coming up appt Most recent HbA1c: 8.5%, 05/04/2024 Random Glucose- 181mg/dL, Today Student Activities Director Required: No Accompanied by: Self / Same As Patient Allergies amoxicillin [AMOXICILLIN] Allergy (Unknown, Verified 05/20/24 08:34) HIVES azathioprine [From IMURAN] Allergy (Unknown, Verified 05/20/24 08:34) ABNORMAL LABS,HIVES etanercept [From ENBREL] Allergy (Unknown, Verified 05/20/24 08:34) HIVES infliximab [From REMICADE] Allergy (Unknown, Verified 05/20/24 08:34) RASH levofloxacin Allergy (Unknown, Verified 05/20/24 08:34) GI Upset nickel [NICKEL] Allergy (Unknown, Verified 05/20/24 08:34) UNKNOWN penicillin V Allergy (Unknown, Verified 05/20/24 08:34) hives Penicillins [PCN] Allergy (Unknown, Verified 05/20/24 08:34) HIVES tramadol Adverse Reaction (Verified 05/20/24 08:34) Nausea, sweating, dizzy HPI Comments Details: ?Patient is 68 yo female with DM diagnosed with diabetes s/p pancreatectomy in October 2017, who presents today for trouble shooting her islet insulin pump. She started the pump earlier this month and had allergic reaction to the steel cannula and so was changed to the inlet?set. Over the past few days she has had to change the set several times for non delivery of insulin. Her blood sugars filiberto to 400 and she was negative to trace on ketones. She took the set out ye sterday and took 21 units of Lantus and has been bolusing with Humalog 4 units. She reports that she tried to get CeQUr insulin patch which was not covered by her insurance despite prior authorization. She is not certain she would like to continue with the islet pump. How can ??Back up insulin plan: ? ?Diabetes medications: Lantus 20 units daily? Humalog 2-4 No current abd pain, weakness, nausea or vomiting. 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 Thyroid nodule Right tibial fracture Tobacco abuse Fractured coccyx Pulmonary nodule History of DVT (deep vein thrombosis) Behcet's syndrome COPD (chronic obstructive pulmonary disease) Osteoporosis Anxiety GERD (gastroesophageal reflux disease) Malignant neoplasm of pancreas, unspecified Obstructive sleep apnea Surgical History History of back surgery History of surgery History of colonoscopy History of varicose veins of lower extremity History of surgery History of pancreatic surgery History of open reduction and internal fixation (ORIF) procedure H/O splenectomy History of cholecystectomy Family History Father Diabetes Advanced cardiac disease Mother Asthma Osteoporosis Brain cancer Brother Lung cancer Sister Breast cancer History of Coumadin therapy Brother Colostomy in place Daughter No problems noted. Son No problems noted. Social History Household Members: None Housing: House Do you presently have visiting nurse or other home services: No Alcohol intake: never Patient Tobacco Use Status: Current everyday Tobacco user Tobacco use type: Cigarette Cigarette Packs Per Day: 1 Cigarettes Per Day: 13 Years Smoked: 50 e-Cigarette/Vaping Use: Never Used Second Hand Smoke Exposure: No Advance Directives Date on File: 12/11/21 service: No Current occupational status: retired Cognitive needs: No Hearing needs: No Vision needs: Yes Physical Exam Vital Signs: Last Vital Signs Pulse 66 05/21/24 10:19 BP 146/88 H 05/21/24 10:19 BMI result Body Mass Index 29.0 Const General: cooperative and healthy appearing Nutritional Appearance: average body habitus Resp Effort & Inspection: normal respiratory effort and able to speak in complete sentences Results Reviewed Results Reviewed: Laboratory Last Values Glucose (Clinic) 181 mg/dL (60-115) H 05/21/24 10:22 Assessment & Plan Assessment & Plan (1) 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 She had allergic reaction to steal cannula and had an inlet set inserted 3 days ago since that time she has had to replace a twice for non delivery. She was advised to contact islet to trouble shoot in until she is back on the pump or if she decides not to go back on the pump to revert back to her previous insulin plan of Lantus 20 units and Humalog 2-4 units t.i.d. she will discuss the return/warranty policy with [employer] and we will follow up next available appointment with Caitlin ANNE to determine further course of action . We in depth reviewed Symptoms of DKA : early: frequent urination, dry mouth, fatigue, feeling ill, severe symptoms: ketones in the urine, abdominal pain, na usea, vomiting and weakness. It is important to hydrate with sugar free liquids every 30 minutes and bring the sugars down to normal levels. 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
[2024-05-21 10:19] VITALS: BP 146/88; PULSE 66; BMI 29.0
[2024-05-21 10:27] LABS: Glucose, Whole Blood 181 mg/dL (60-115)
== END 2024-05-21 10:49 | disposition home or self-care (01) ==
PROVIDERS: PCP Internal Medicine; Visit Provider Nurse Practitioner Adult Health
DX: E13.9 Other specified diabetes mellitus without complications (principal); S36.209S Unspecified injury of unspecified part of pancreas, sequela
CPT/HCPCS: 99213

== ENCOUNTER → 2024-05-21 10:12 | Outpatient (BNVA) | payer MEDICARE, OTHER, SELFPAY | PROVIDERS: PCP Internal Medicine; Visit Provider Nurse Practitioner Adult Health | DX: E13.9 Other specified diabetes mellitus without complications (principal); S36.209S Unspecified injury of unspecified part of pancreas, sequela; X58.XXXS Exposure to other specified factors, sequela; Z46.81 Encounter for fitting and adjustment of insulin pump; Z90.410 Acquired total absence of pancreas; Z79.4 Long term (current) use of insulin | CPT/HCPCS: 82947; 99212 ==

== ENCOUNTER 2024-05-25 07:45 | Outpatient (AMB) | payer MEDICARE, OTHER, SELFPAY ==
[2024-05-25 08:38] LABS: Glucose, Whole Blood 176 mg/dL (60-115)
--- NOTE | 2024-05-25 08:40 | MHC.AMDMED ---
Intake Intake Visit Reasons: Pump issues Behavioral Interventionist Required: No Accompanied by: Self / Same As Patient Allergies amoxicillin [AMOXICILLIN] Allergy (Unknown, Verified 05/20/24 08:34) HIVES azathioprine [From IMURAN] Allergy (Unknown, Verified 05/20/24 08:34) ABNORMAL LABS,HIVES etanercept [From ENBREL] Allergy (Unknown, Verified 05/20/24 08:34) HIVES infliximab [From REMICADE] Allergy (Unknown, Verified 05/20/24 08:34) RASH levofloxacin Allergy (Unknown, Verified 05/20/24 08:34) GI Upset nickel [NICKEL] Allergy (Unknown, Verified 05/20/24 08:34) UNKNOWN penicillin V Allergy (Unknown, Verified 05/20/24 08:34) hives Penicillins [PCN] Allergy (Unknown, Verified 05/20/24 08:34) HIVES tramadol Adverse Reaction (Verified 05/20/24 08:34) Nausea, sweating, dizzy HPI Comprehensive Diabetes Asmnt Most Recent Diabetes Results: Microalb/Creat Ratio 12.2 ug/mg cr (<30) 06/16/23 Cholesterol 144 mg/dL (<200) 06/16/23 HDL Cholesterol 44 mg/dL (>40) 06/16/23 Triglycerides 102 mg/dL (<150) 06/16/23 Creatinine 0.78 mg/dL (0.5-1.4) 06/16/23 Blood Urea Nitrogen 12 mg/dL (9-16) 06/16/23 Sodium 140 mmol/L (135-145) 06/16/23 Potassium 4.1 mmol/L (3.3-5.1) 06/16/23 Chloride 105 mmol/L (96-108) 06/16/23 Carbon Dioxide 24 mmol/L (22-29) 06/16/23 Calcium 9.4 mg/dL (8.4-10.2) 06/16/23 AST 22 U/L (5-31) 06/16/23 ALT 20 U/L (0-31) 06/16/23 Total Protein 7.4 g/dL (6.5-8.0) 06/16/23 Albumin 4.1 g/dL (3.5-5.0) 06/16/23 [facility] Medical History Intractable pain Pneumonia Daytime sleepiness Common bile duct dilatation Colon cancer screening Left hip pain Left knee pain Wheezes Low back pain radiating to left lower extremity Bladder cancer Behcet's disease COVID-19 virus infection Essential hypertension Uncontrolled diabetes mellitus Non-toxic multinodular goiter Dysuria Hyperlipidemia LDL goal <100 Vitamin D insufficiency 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 Thyroid nodule Right tibial fracture Tobacco abuse Fractured coccyx Pulmonary nodule History of DVT (deep vein thrombosis) Behcet's syndrome COPD (chronic obstructive pulmonary disease) Osteoporosis Anxiety GERD (gastroesophageal reflux disease) Malignant neoplasm of pancreas, unspecified Obstructive sleep apnea Surgical History History of back surgery History of surgery History of colonoscopy History of varicose veins of lower extremity History of surgery History of pancreatic surgery History of open reduction and internal fixation (ORIF) procedure H/O splenectomy History of cholecystectomy Family History Father Diabetes Advanced cardiac disease Mother Asthma Osteoporosis Brain cancer Brother Lung cancer Sister Breast cancer History of Coumadin therapy Brother Colostomy in place Daughter No problems noted. Son No problems noted. 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 Patient has decided to discontinue insulin pump therapy Over the past 5 or 6 days she has had very high readings from glucometer, has been concerned because her Dexcom was reading 50 mg/dL less than glucometer Has resumed Lantus 20 units daily Humalog 3-5 units before meals While at visit today patient requested fingerstick to be done so she can compare to her to glucometer and her CGM Clinic fingerstick reading 176 mg/dL Dexcom G7 readings 183 mg/dL OneTouch Verio: 185 mg/dL OneTouch Verio flex: 195 mg/dL The following topics were reviewed today: -Always dose 15 minutes prior to meals - Off pump backup insulin plan Message sent to provider to reorder Humalog insulin pump Patient had conversation with ELECTRICAL PROJECT MANAGER regarding insulin patch alternative to insulin pump [facility] as [facility] Portions of this note were created using voice recognition software, please excuse any words or phrases that may have been misinterpreted. 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
== END 2024-05-25 13:00 | disposition home or self-care (01) ==
PROVIDERS: PCP Internal Medicine; Visit Provider Registered Nurse Diabetes Educator
DX: E13.9 Other specified diabetes mellitus without complications (principal); S36.209S Unspecified injury of unspecified part of pancreas, sequela

== ENCOUNTER → 2024-05-25 07:45 | Outpatient (BNVA) | payer MEDICARE, OTHER, SELFPAY | PROVIDERS: PCP Internal Medicine; Visit Provider Registered Nurse Diabetes Educator | DX: E13.9 Other specified diabetes mellitus without complications (principal); S36.209S Unspecified injury of unspecified part of pancreas, sequela | CPT/HCPCS: 82947; 99211 ==

== ENCOUNTER 2024-08-04 08:20 | Outpatient (AMB) | payer MEDICARE, OTHER, SELFPAY ==
--- NOTE | 2024-08-04 08:32 | A.OFFVIS_ITS ---
Vital Signs 08/04/24 08:40 Height 5 ft 2.5 in Weight 163 lb BMI 29.3 BP 132/82 Blood Pressure Location Rt brachial Position Sitting Pulse 74 Pulse Source Pulse Oximeter Intake Visit Reasons: f/u DM2/CONF Intake Note: Patient presents today to address insulin pump issues: Last Diabetic eye exam was on: 10/2023 Last Podiatry exam was on: DUE, has a coming up appt Most recent HbA1c: 8.2%, 08/04/2024 Random Glucose- 113 mg/dL, Today Engineering Project Designer Required: No Accompanied by: Self / Same As Patient Allergies azathioprine [From IMURAN] Allergy (Unknown, Verified 05/20/24 08:34) ABNORMAL LABS,HIVES etanercept [From ENBREL] Allergy (Unknown, Verified 05/20/24 08:34) HIVES infliximab [From REMICADE] Allergy (Unknown, Verified 05/20/24 08:34) RASH levofloxacin Allergy (Unknown, Verified 05/20/24 08:34) GI Upset nickel [NICKEL] Allergy (Unknown, Verified 05/20/24 08:34) UNKNOWN tramadol Adverse Reaction (Verified 05/20/24 08:34) Nausea, sweating, dizzy HPI Comments Details: Patient is 69 yo female with DM diagnosed with diabetes s/p pancreatectomy in October 2017, who presents for continued management of diabetes.? She was started on an islet insulin pump and did not do well with the technology and she is back on basal/bolus insulin. Past medical history: malignant neoplasm of the pancreas with resection on 11/06/17, 30+ years of smoking quit in 2018, anxiety, osteoporosis, depression, MNG Bechet's Syndrome,? bladder ca w/ resection in late 2020 ?? ? Diabetes medications: Lantus 18-20 units Humalog 3-5 units Dexcom average glucose: 163 14 day continuous glucose monitor report reviewed Glucose Managment indicator 7.2 % Days with CGM data 100 % TIme in ranges: Five % very high (above 250) 32 % high ?(181-250) 63 % in range ?(70-180] 0 % low (69-55) Less than 1 % ?very low (below 54) 49 Standard Deviation Interpretation [ ] Symptoms:? reports? numbness and tingling in lower extremities Hypoglycemia:? rarely but happens when more active Hyperglycemia: + polyuria,? but drinks tea frequently Exercise: very active around home and works in her yard Eye exam: last appt 09/13 no retinopathy has appt in October Sees health program analyst regularly:has appt next week . She had a small problem with the great toe in the corner of the nail bed. No longer reddened. EXAMINATION: US THYROID CLINICAL INFORMATION: Nontoxic multinodular goiter. COMPARISON: Thyroid ultrasound 02/21/2022 and 02/05/2021. Ultrasound-guided thyroid biopsy 03/08/2021. TECHNIQUE: Linear transducer grayscale and color Doppler examination with attention to the region of the thyroid. FINDINGS: SIZE: Measurements of the thyroid lobes and nodules are given in sagittal, anteroposterior and transverse dimensions respectively. Right Thyroid Lobe: 4.6 x 1.9 x 1.5 cm, volume 6.7 mL. Previously 4.5 x 1.7 x 1.6 cm, volume 6.4 mL. Parenchyma: The gland echotexture is homogeneous. Thyroid vascularity is normal. Left Thyroid Lobe: 4.3 x 2.3 x 1.7 cm, volume 8.5 mL. Previously 4.4 x 1.7 x 1.9 cm, volume 7.4 mL. Parenchyma: The gland echotexture is homogeneous. Thyroid vascularity is normal. Isthmus: 0.5 cm in maximum AP dimension. Previously 0.4 cm. Estimated total number of nodules greater than or equal to 1 cm: 2. Multifocal Lens Assembler nodules are described as follows: 1. Location: Right mid pole. Size: 0.8 x 0.8 x 0.8 cm, volume 0.28 mL. Previously: 1.0 x 0.7 x 1.0 cm, volume 0.39 mL. Nodule characteristics: Composition: Mixed cystic and solid (1). Echogenicity: Isoechoic (1). Shape: Not taller than wide (0). Margins: Smooth (0). Echogenic Foci: Punctate echogenic foci (3). ACR TI-RADS total points: 5 Previous: 5 ACR TI-RADS category: 4 Previous: 4 Significant change in size (>/= 20% in 2 dimensions and minimal increase of 2 mm or 50% or greater increase in volume): No 2. Location: Left mid pole. Size: 1.6 x 0.9 x 1.1 cm, volume 0.84 mL. Previously: 1.5 x 0.9 x 1.1 cm, volume 0.80 mL. Nodule characteristics: Composition: Mixed cystic and solid (1). Echogenicity: Hypoechoic (2). Shape: Not taller than wide (0). Margins: Smooth (0). Echogenic Foci: No definite calcification appreciated over punctate echogenic foci (0) ACR TI-RADS total points: 3 Previous: 3 ACR TI-RADS category: 3 Previous: 3 Significant change in size (>/= 20% in 2 dimensions and minimal increase of 2 mm or 50% or greater increase in volume): No 3. Location: Left mid pole. Size: 1.1 x 0.5 x 0.9 cm, volume 0.27 mL. Previously: 1.1 x 0.6 x 1.0 cm, volume 0.31 mL. Composition: Mixed cystic and solid (1). Echogenicity: Hypoechoic (2). Shape: Not taller than wide (0). Margins: Smooth (0). Echogenic Foci: None (0). ACR TI-RADS total points: 3 Previous: 0 ACR TI-RADS category: 3 Previous: 1 Significant change in size (>/= 20% in 2 dimensions and minimal increase of 2 mm or 50% or greater increase in volume): No Change in features: Yes, appears less spongiform on today's exam Change in ACR TI-RADS risk category: Yes 4. Location: Left lower pole. Size: 0.4 x 0.3 x 0.5 cm, volume 0.03 mL. Previously: 0.4 x 0.4 x 0.4 cm, volume 0.03 mL. Nodule characteristics: Composition: Cystic(0). ACR TI-RADS total points: 0 Previous: 0 ACR TI-RADS category: 1 Previous: 1 5. Location: Left lower pole. Size: 0.5 x 0.2 x 0.4 cm, volume 0.02 mL. Previously: Not seen previously. Nodule characteristics: Composition: Spongiform (0). ACR TI-RADS total points: 0 ACR TI-RADS category: 1 NODES: No lymphadenopathy is seen in the tissue surrounding the thyroid gland. US/US thyroid IMPRESSION: A 0.8 cm TR 4 right thyroid nodule is not significantly changed in size. This was previously sampled. Recommend correlation with prior pathology. A 1.6 cm TR 3 left midpole thyroid nodule is not significantly changed in size and meets criteria for continued surveillance. Remainder of thyroid nodule does not meet criteria for follow-up. 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 Thyroid nodule Right tibial fracture Tobacco abuse Fractured coccyx Pulmonary nodule History of DVT (deep vein thrombosis) Behcet's syndrome COPD (chronic obstructive pulmonary disease) Osteoporosis Anxiety GERD (gastroesophageal reflux disease) Malignant neoplasm of pancreas, unspecified Obstructive sleep apnea Surgical History History of back surgery History of surgery History of colonoscopy History of varicose veins of lower extremity History of surgery History of pancreatic surgery History of open reduction and internal fixation (ORIF) procedure H/O splenectomy History of cholecystectomy Family History Father Diabetes Advanced cardiac disease Mother Asthma Osteoporosis Brain cancer Brother Lung cancer Sister Breast cancer History of Coumadin therapy Brother Colostomy in place Daughter No problems noted. Son No problems noted. Social History Household Members: None Housing: House Do you presently have visiting nurse or other home services: No Alcohol intake: never Patient Tobacco Use Status: Current everyday Tobacco user Tobacco use type: Cigarette Cigarette Packs Per Day: 1 Cigarettes Per Day: 13 Years Smoked: 50 e-Cigarette/Vaping Use: Never Used Second Hand Smoke Exposure: No Advance Directives Date on File: 12/11/21 service: No Current occupational status: retired Cognitive needs: No Hearing needs: No Vision needs: Yes Physical Exam Vital Signs: Last Vital Signs Pulse 74 08/04/24 08:40 BP 132/82 08/04/24 08:40 BMI result Body Mass Index 29.3 Const Other: Absence of Cushingoid features. Absence of acromegalic features. Neck exam reveals nl size thyroid about 15 gms. No thyroid nodules palpable. Heart S1 S2, Reg R/R. No M/R G. Skin exam reveals absence of vitiligo or acanthosis nigricans. 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 She has no retinopathy, neuropathy or nephropathy. Most recent sensor download shows an average glucose of 163 on basal bolus insulin. She had a brief trial on an insulin pump but did not do well with the technology and chose to go back to basal bolus insulin. She continues on a continuous glucose sensor. No change in insulin dose today The patient had an opportunity to ask questions regarding treatment plan. The patient expressed understanding and agreement with the above treatment plan. The patient is aware they should contact our office by phone for worsening glucose readings or for any low blood sugars which may warrant a change in diabetes medication. Compliance is encouraged with medications and any followup testing/consults which may have been ordered. Orders: Orders US thyroid 08/04/24 E04.2 - Nontoxic multinodular goiter AMB Hemoglobin A1c 08/04/24 E13.9 - Other specified diabetes mellitus without complications, S36.209S - Unspecified injury of unspecified part of pancreas, sequela Patient Instructions: The patient was counseled to always carry a source of sugar and on the rule of 15's: Take 3 glucose tablets and repeat again in 15 minutes if blood sugar is not in normal range. Continue to repeat every 15 minutes until blood sugar is normal. The patient was counseled to achieve a target A1C of 7% (154 avg). Fasting blood sugars should be 90-130 in the morning and less than 180 two hours after meals. Reviewed the relationship between poor diabetic control and the development of complications. 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
[2024-08-04 08:40] VITALS: BP 132/82; PULSE 74; BMI 29.3
[2024-08-04 08:44] LABS: Glucose, Whole Blood 113 mg/dL (60-115)
== END 2024-08-04 09:14 | disposition home or self-care (01) ==
PROVIDERS: PCP Internal Medicine; Visit Provider Nurse Practitioner Adult Health
DX: E13.9 Other specified diabetes mellitus without complications (principal); S36.209S Unspecified injury of unspecified part of pancreas, sequela
CPT/HCPCS: 99214

== ENCOUNTER → 2024-08-04 08:20 | Outpatient (BNVA) | payer MEDICARE, OTHER, SELFPAY | PROVIDERS: PCP Internal Medicine; Visit Provider Nurse Practitioner Adult Health | DX: E13.9 Other specified diabetes mellitus without complications (principal); E04.2 Nontoxic multinodular goiter; Z79.4 Long term (current) use of insulin; Z90.411 Acquired partial absence of pancreas | CPT/HCPCS: 82947; 83036; 99212 ==

== ENCOUNTER 2024-09-02 08:32 | Outpatient (REF) | payer MEDICARE, OTHER, SELFPAY ==
[2024-09-02 10:02] LABS: Creatinine Urine 117.35 mg/dL; Microalbum/Creatinine Ratio Ur 15.3 ug/mg cr (<30)
[2024-09-02 10:20] LABS: Estimated Average Glucose 171 mg/dL; Hemoglobin A1C 207.4047 umol/L; Hemoglobin A1c % 7.6 % (<6.0)
[2024-09-02 11:13] LABS: Alanine Aminotransferase 34 U/L (0-31); Alkaline Phosphatase 81 U/L (39-117); Anion Gap 11 (12-20); Aspartate Amino Transferase 29 U/L (5-31); Bilirubin Total 0.3 mg/dL (0.0-1.0); Blood Urea Nitrogen 10 mg/dL (9-16); Calcium 9.6 mg/dL (8.4-10.2); Carbon Dioxide 26 mmol/L (22-29); Chloride 108 mmol/L (96-108); Cholesterol 133 mg/dL (<200); Estimated Glomerular Filt Rate > 60; Glucose Random 124 mg/dL (60-115); HDL Cholesterol 48 mg/dL (>40); LDL Cholesterol Calculated 73 mg/dL (<100); Potassium 4.4 mmol/L (3.3-5.1); Sodium 141 mmol/L (135-145); Total Protein 7.1 g/dL (6.5-8.0); Triglycerides 61 mg/dL (<150)
[2024-09-02 11:32] LABS: Thyroid Stimulating Hormone 1.65 uIU/mL (0.32-4.0)
== END 2024-09-02 08:33 | disposition home or self-care (01) ==
LOC: HO.HMGCLDS 08:32
PROVIDERS: Nurse Practitioner Adult Health; PCP Internal Medicine; Visit Provider Internal Medicine
DX: E13.9 Other specified diabetes mellitus without complications (principal); S36.209S Unspecified injury of unspecified part of pancreas, sequela
CPT/HCPCS: 36415; 80053; 80061; 82043; 82570; 83036; 84443

== ENCOUNTER 2024-09-03 10:18 | Outpatient (REF) | payer MEDICARE, OTHER, SELFPAY | END 2024-09-03 10:19 | disposition home or self-care (01) | LOC: HO.HMGCX 10:18 | PROVIDERS: PCP Internal Medicine; Visit Provider Nurse Practitioner Adult Health | DX: E04.2 Nontoxic multinodular goiter (principal) | CPT/HCPCS: 76536 ==

== ENCOUNTER 2024-09-06 08:53 | Outpatient (AMB) | payer MEDICARE, OTHER, SELFPAY ==
[2024-09-06 08:56] VITALS: BP 144/80; PULSE 76; O2SAT 96; BMI 29.4
--- NOTE | 2024-09-06 08:56 | MHC.OFFVIS ---
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 Gas Operator Required: No Accompanied by: Self / Same As Patient Allergies azathioprine [From IMURAN] Allergy (Unknown, Verified 09/06/24 08:59) ABNORMAL LABS,HIVES etanercept [From ENBREL] Allergy (Unknown, Verified 09/06/24 08:59) HIVES infliximab [From REMICADE] Allergy (Unknown, Verified 09/06/24 08:59) RASH levofloxacin Allergy (Unknown, Verified 09/06/24 08:59) GI Upset nickel [NICKEL] Allergy (Unknown, Verified 09/06/24 08:59) UNKNOWN tramadol Adverse Reaction (Verified 09/06/24 08:59) Nausea, sweating, dizzy Do you need a note to return to daycare/school/sports/work: No HPI Comments Details: 68 y/o female patient presents for follow up of CHARLI on CPAP. Pt reports she still has sinus issue, congestion and phlegm in the morning. She is still feeling fatigued d/t the cat keeping her awake at night. She has new CPAP and cleans her mask, changes the filters weekly. Pt's CPAP company is [facility] but getting supplies from [employer] in [place]. Compliance Report 06/03/2024- 08/26/2024 Total Avg use >4 hours 69 days = 77%, Avg use total per night 5 hours 29 min Press [id number] w/ therapy at 8.9 to 12.4m, Leaks 10.9 -38.7 AHI 0.5 She has been a bit more stressed lately with her health concerns, pancreatic cancer, she is insulin dependent, and mammogram is pending, she has Bechet's syndrome, followed by Tax Compliance Manager. She still smokes cigarettes but wants to cut down to less than half a pack a day, would like to try sustained release Wellbutrin. BP is elevated today will f/u with Dr. Kimble, as she has been more anxious. 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 Thyroid nodule Right tibial fracture Tobacco abuse Fractured coccyx Pulmonary nodule History of DVT (deep vein thrombosis) Behcet's syndrome COPD (chronic obstructive pulmonary disease) Osteoporosis Anxiety GERD (gastroesophageal reflux disease) Malignant neoplasm of pancreas, unspecified Obstructive sleep apnea Surgical History History of back surgery History of surgery History of colonoscopy History of varicose veins of lower extremity History of surgery History of pancreatic surgery History of open reduction and internal fixation (ORIF) procedure H/O splenectomy History of cholecystectomy Family History Father Diabetes Advanced cardiac disease Mother Asthma Osteoporosis Brain cancer Brother Lung cancer Sister Breast cancer History of Coumadin therapy Brother Colostomy in place Daughter No problems noted. Son No problems noted. Social History Household Members: None Housing: House Do you presently have visiting nurse or other home services: No Alcohol intake: never Patient Tobacco Use Status: Current everyday Tobacco user Tobacco use type: Cigarette Cigarette Packs Per Day: 1 Cigarettes Per Day: 13 Years Smoked: 50 e-Cigarette/Vaping Use: Never Used Second Hand Smoke Exposure: No Advance Directives Date on File: 12/11/21 service: No Current occupational status: retired Cognitive needs: No Hearing needs: No Vision needs: Yes Review of Systems Const All systems reviewed & are unremarkable except as noted in HPI and below ENT Reports Normal hearing present Neuro Reports Normal hearing present Physical Exam Vital Signs: Last Vital Signs Pulse 76 09/06/24 08:56 BP 144/80 H 09/06/24 08:56 Pulse Ox 96 09/06/24 08:56 Oxygen Delivery Method Room Air 09/06/24 08:56 BMI result Body Mass Index 29.4 Const Orientation/consciousness: patient oriented x3 Neck Neck: Yes full ROM and Yes supple Resp Effort & Inspection: normal respiratory effort and able to speak in complete sentences Neuro General: patient oriented x3 and gait normal Cranial nerves: Yes Bilaterally intact EOM present, Yes Normal facial strength present, Yes Midline tongue present, Yes Symmetric palate elevation present, Yes Normal hearing present, Yes Ability to bilaterally rotate head present and Yes Ability to bilaterally elevate shoulders present Cognition (Neuro): normal cognition Gait exam (Neuro): Normal gait present Motor exam (neuro): 5/5 motor strength present throughout, Pronator motor function not present and no tremor noted Psych Appearance: grossly normal Mental Status: mental status grossly normal Speech and movement: Normal speech and movement present Affect: normal affect Attitude: cooperative Results Reviewed Results Reviewed: Compliance 06/03/2024- 08/26/2024 Total Avg use >4 hours 69 days = 77% Avg use total 5 hours 29 min Press [id number] w/ therapy at 8.9 to 12.4 Leaks 10.9 -38.7 AHI 0.5 Assessment & Plan Assessment & Plan (1) Mood complaints in sleep disorder: Code(s): G47.9 - Sleep disorder, unspecified Category: Medical (2) Obstructive sleep apnea: Comment: Study done 01/02/2023 mild, AutoPAP 5-15 cm of water Code(s): G47.33 - Obstructive sleep apnea (adult) (pediatric) Category: Medical (3) Fatigue due to depression: Code(s): F32.A - Depression, unspecified; R53.83 - Other fatigue Category: Medical (4) Daytime sleepiness: Code(s): R40.0 - Somnolence Category: Medical Plan Pt is advised to adjust temperature on her machine for dry mouth, drink plenty of water through the day, limit fluid intake 2-4 hours prior to bedtime. Sleep hygiene education provided. Exercise, such as low intensity yoga for stress and mood. Will start her on 100mg PO at bedtime SR Wellbutrin for mood and anxiety. Advised patient to continue to use CPAP daily, adjust temperature of the room, and try a humidifier or plants in the room to bring moisture into the air. Pt to call with any worsening concerns or questions. Coding Level of Care Code Est Pt Level 3 (27494) Diagnoses Mood complaints in sleep disorder G47.9 Obstructive sleep apnea G47.33 Fatigue due to depression F32.A; R53.83 Daytime sleepiness R40.0 Time Spent (min) 30 Comment Sleep quality improved yet still anxious
== END 2024-09-06 09:45 | disposition home or self-care (01) ==
PROVIDERS: PCP Internal Medicine; Visit Provider Physician Assistant Medical
DX: G47.9 Sleep disorder, unspecified (principal); G47.33 Obstructive sleep apnea (adult) (pediatric); F32.A Depression, unspecified; R53.83 Other fatigue; R40.0 Somnolence
CPT/HCPCS: 99213

== ENCOUNTER → 2024-09-06 08:53 | Outpatient (BNVA) | payer MEDICARE, OTHER, SELFPAY | PROVIDERS: PCP Internal Medicine; Visit Provider Physician Assistant Medical | DX: G47.33 Obstructive sleep apnea (adult) (pediatric) (principal); R53.83 Other fatigue; R40.0 Somnolence; F32.A Depression, unspecified; Z99.89 Dependence on other enabling machines and devices | CPT/HCPCS: 99212 ==

== ENCOUNTER 2024-09-10 08:34 | Outpatient (AMB) | payer MEDICARE, OTHER, SELFPAY ==
--- NOTE | 2024-09-10 08:39 | A.OFFPC_ITS ---
Vital Signs 09/10/24 08:41 Height 5 ft 2.5 in Weight 163 lb 4 oz BMI 29.4 BP 132/78 Blood Pressure Location Lt brachial Position Sitting Pulse 73 Pulse Source Pulse Oximeter Pulse Oximetry (%) 96 Oxygen Delivery Method Room Air Intake Visit Reasons: 3-4 month Follow up DM , Pancreatic cancer, CHARLI, Intake Note: Patient is here to follow up on DM, Pancreatic cancer, CAHRLI. Citizen Participation Specialist Required: No Audio Visual Design Engineer: Not Required per policy Accompanied by: Self / Same As Patient Allergies azathioprine [From IMURAN] Allergy (Unknown, Verified 09/10/24 08:40) ABNORMAL LABS,HIVES etanercept [From ENBREL] Allergy (Unknown, Verified 09/10/24 08:40) HIVES infliximab [From REMICADE] Allergy (Unknown, Verified 09/10/24 08:40) RASH levofloxacin Allergy (Unknown, Verified 09/10/24 08:40) GI Upset nickel [NICKEL] Allergy (Unknown, Verified 09/10/24 08:40) UNKNOWN tramadol Adverse Reaction (Verified 09/10/24 08:40) Nausea, sweating, dizzy Tobacco use date assessed: 09/10/24 Fall risk assessment: No Falls in past year Last assessed Fall Risk: 09/10/24 Dental Screening Dental Screen Date: 10/01/23 HPI 3-4 month Follow up DM , Pancreatic cancer, CHARLI, HPI Details The patient is a 69-year-old female presenting with concerns surrounding previous and ongoing management of Type 2 Diabetes Mellitus, obstructive sleep apnea, nicotine dependence, and arthritis. Her diabetes management has been adjusted back to insulin therapy (Fiasp, Lantus, and Humalog) due to pump complications. She reports difficulties in returning the pump and worries about potential Medicare charges. Recent lab results show a hemoglobin A1c of 7.6%, an improvement from previous values. For obstructive sleep apnea, the patient continues using CPAP therapy but reports issues with dry mouth. She mentions adjustments in the climate control settings were suggested to ameliorate this symptom. She is attempting smoking cessation with a new prescription for Wellbutrin but has yet to begin the medication. The prescription aims to support nicotine dependence management, and a structured initiation process was advised. Her rheumatoid arthritis is being managed with Simponi and recent x-rays confirmed the presence of arthritis, though she has not received direct communication regarding these results. Concerning thyroid nodules, an ultrasound indicated stability from prior assessments without any significant change. Additionally, a recent PET scan in [place] highlighted a small abnormality in the pelvis, with recommendations for follow-up scan in six months. The patient has been advised to repeat a mammogram due to dense breast tissue on previous imaging, necessitating further evaluation with diagnostic testing and an ultrasound focused on the right breast. 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 This stress has been exacerbated by her half-pack per day smoking habit and ongoing medical follow-ups. 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 Thyroid nodule Right tibial fracture Tobacco abuse Fractured coccyx Pulmonary nodule History of DVT (deep vein thrombosis) Behcet's syndrome COPD (chronic obstructive pulmonary disease) Osteoporosis Anxiety GERD (gastroesophageal reflux disease) Malignant neoplasm of pancreas, unspecified Obstructive sleep apnea Surgical History History of back surgery History of surgery History of colonoscopy History of varicose veins of lower extremity History of surgery History of pancreatic surgery History of open reduction and internal fixation (ORIF) procedure H/O splenectomy History of cholecystectomy Family History Father Diabetes Advanced cardiac disease Mother Asthma Osteoporosis Brain cancer Brother Lung cancer Sister Breast cancer History of Coumadin therapy Brother Colostomy in place Daughter No problems noted. Son No problems noted. Social History Household Members: None Housing: House Do you presently have visiting nurse or other home services: No Alcohol intake: never Patient Tobacco Use Status: Current everyday Tobacco user Tobacco use type: Cigarette Cigarette Packs Per Day: 0.5 Cigarettes Per Day: 10 Years Smoked: 50 e-Cigarette/Vaping Use: Never Used Second Hand Smoke Exposure: No Advance Directives Date on File: 12/11/21 service: No Current occupational status: retired Cognitive needs: No Hearing needs: No Vision needs: Yes Questionnaire Thrive Questionnaire Date Thrive assessed: 10/01/23 LISHA-7 AMB Questionnaire LISHA-7 Date LISHA - 7 assessed: 10/01/23 Source: Developed by Drs. Sukhdeep Franz, Ana Alexander, Varinder Muro and colleagues, with an educational malachi from [employer]. Physical exam (Primary Care) Vital Signs: Last Vital Signs Pulse 73 09/10/24 08:41 BP 132/78 09/10/24 08:41 Pulse Ox 96 09/10/24 08:41 Oxygen Delivery Method Room Air 09/10/24 08:41 BMI result Body Mass Index 29.4 Tobacco/Smoking Status: Tobacco use Status Tobacco use date assessed 09/10/24 09/10/24 08:47 Patient Tobacco Use Status Current everyday Tobacco 09/10/24 08:47 Tobacco use type Cigarette 09/10/24 08:47 e-Cigarette/Vaping Use Never Used 09/10/24 08:47 Thrive Assessment: Date of Thrive Assessment Date Thrive assessed 10/01/23 09/10/24 08:47 Const General: alert; No acute distress Eyes Conjunctivae: conjunctivae normal Resp Auscultation: clear to auscultation bilaterally Cardio Rate: regular rate Rhythm: regular rhythm GI Inspection: Yes normal to inspection Extrem General: Yes normal to inspection and No edema Coding Level of Care Code Est Pt Level 4 (61756) Complex EM visit Add On G2211 Diagnoses 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 E13.9; S36.S Malignant neoplasm of pancreas, unspecified C25.9 Age-related osteoporosis without current pathological fracture M81.0 Osteoporosis type: age-related Presence of current pathological fracture: without current pathological fracture Pulmonary emphysema, unspecified emphysema type J43.9 COPD type: emphysema Emphysema type: unspecified Tobacco abuse Z72.0 Hyperlipidemia LDL goal <100 E78.5 Generalized anxiety disorder F41.1 Gastroesophageal reflux disease without esophagitis K21.9 Esophagitis presence: without esophagitis Obstructive sleep apnea G47.33 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 Essential hypertension I10 Assessment & Plan Assessment & Plan (1) 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 Driver, Dr. Angeles sent to Dr. Pope 10/2017 CT scan September 2019 status post distal pancreatectomy 2018 ff up in [place] Code(s): C25.9 - Malignant neoplasm of pancreas, unspecified Category: Medical (3) Osteoporosis: Comment: Alendronate June 2012, September 201812/2022 Code(s): M81.0 - Age-related osteoporosis without current pathological fracture Category: Medical Qualifiers: Osteoporosis type: age-related Presence of current pathological fracture: without current pathological fracture Qualified Code(s): M81.0 - Age- related osteoporosis without current pathological fracture (4) COPD (chronic obstructive pulmonary disease): Code(s): J44.9 - Chronic obstructive pulmonary disease, unspecified Category: Medical Qualifiers: COPD type: emphysema Emphysema type: unspecified Qualified Code(s): J43.9 - Emphysema, unspecified (5) Tobacco abuse: Code(s): Z72.0 - Tobacco use Category: Medical (6) Hyperlipidemia LDL goal <100: Code(s): E78.5 - Hyperlipidemia, unspecified Category: Medical (7) Generalized anxiety disorder: Comment: Declined any referral for counseling Code(s): F41.1 - Generalized anxiety disorder Category: Medical (8) GERD (gastroesophageal reflux disease): Code(s): K21.9 - Gastro-esophageal reflux disease without esophagitis Category: Medical Qualifiers: Esophagitis presence: without esophagitis Qualified Code(s): K21.9 - Gastro-esophageal reflux disease without esophagitis (9) Obstructive sleep apnea: Comment: Study done 01/02/2023 mild, AutoPAP 5-15 cm of water Code(s): G47.33 - Obstructive sleep apnea (adult) (pediatric) Category: Medical (10) Behcet's disease: Code(s): M35.2 - Behcet's disease Category: Medical (11) Essential hypertension: Code(s): I10 - Essential (primary) hypertension Category: Medical Plan - Monitor Type 2 Diabetes Mellitus closely, with continuation on Fiasp, Lantus, and Humalog. Follow-up on resolution of pump issues and coordinate with Medicare as needed. - For obstructive sleep apnea, adjust CPAP settings to alleviate dry mouth symptoms and assess for further improvements. - Initiate Wellbutrin as planned for nicotine dependence, following structured dosage guidelines. Follow-up on smoking cessation progress. - Continue Simponi for rheumatoid arthritis management and follow up on x-ray results. - Monitor thyroid nodules with regular ultrasounds to ensure stability. Follow up on communication from endocrinology. - Schedule a follow-up PET scan in six months for the pelvic abnormality. - Proceed with diagnostic mammogram and ultrasound for the right breast due to dense tissue findings. Await further instructions from the imaging center. - Encourage stress management strategies, considering volunteering commitments. Discuss lifestyle modifications to support health.
[2024-09-10 08:41] VITALS: BP 132/78; PULSE 73; O2SAT 96; BMI 29.4
== END 2024-09-10 09:23 | disposition home or self-care (01) ==
PROVIDERS: PCP Internal Medicine; Visit Provider Internal Medicine
DX: E13.9 Other specified diabetes mellitus without complications (principal); J43.9 Emphysema, unspecified; C25.9 Malignant neoplasm of pancreas, unspecified; M35.2 Behcet's disease; S36.209S Unspecified injury of unspecified part of pancreas, sequela; M81.0 Age-related osteoporosis without current pathological fracture; Z72.0 Tobacco use; E78.5 Hyperlipidemia, unspecified; F41.1 Generalized anxiety disorder; K21.9 Gastro-esophageal reflux disease without esophagitis; G47.33 Obstructive sleep apnea (adult) (pediatric); I10 Essential (primary) hypertension

== ENCOUNTER → 2024-09-10 08:34 | Outpatient (BNVA) | payer MEDICARE, OTHER, SELFPAY | PROVIDERS: PCP Internal Medicine; Visit Provider Internal Medicine | DX: E13.9 Other specified diabetes mellitus without complications (principal); S36.209S Unspecified injury of unspecified part of pancreas, sequela; C25.9 Malignant neoplasm of pancreas, unspecified; M81.0 Age-related osteoporosis without current pathological fracture; J43.9 Emphysema, unspecified; Z72.0 Tobacco use; E78.5 Hyperlipidemia, unspecified; F41.1 Generalized anxiety disorder; K21.9 Gastro-esophageal reflux disease without esophagitis; G47.33 Obstructive sleep apnea (adult) (pediatric); M35.2 Behcet's disease; I10 Essential (primary) hypertension | CPT/HCPCS: 99212 ==

== ENCOUNTER 2024-10-27 09:08 | Outpatient (REF) | payer MEDICARE, OTHER, SELFPAY ==
[2024-10-27 14:46] LABS: Influenza A PCR POSITIVE (Negative); Influenza B PCR NEGATIVE (Negative); Resp Syncy Virus RNA Qual PCR NEGATIVE (Negative); SARS COV2 PCR INHOUSE NEGATIVE (Negative)
== END 2024-10-27 09:09 | disposition home or self-care (01) ==
LOC: HO.LAB 09:08
PROVIDERS: Physician Assistant; PCP Internal Medicine
DX: Z13.89 Encounter for screening for other disorder (principal)
CPT/HCPCS: 0241U

== ENCOUNTER 2024-10-27 09:46 | Outpatient (REF) | payer MEDICARE, OTHER, SELFPAY ==
--- NOTE | ~2024-10-27 | XR_ITS ---
EXAMINATION: XR CHEST CLINICAL INFORMATION: R05.9 - Cough, unspecified COMPARISON: December 11, 2021 TECHNIQUE: 2 views of the chest were obtained. FINDINGS: Pulmonary reticular pattern. Hyperinflated lungs. No consolidation pleural effusion or pneumothorax. Cardiomediastinal silhouette is normal in size. Kyphotic deformity thoracic spine with multilevel spondylosis. Vascular clips in the left upper quadrant abdomen below the left hemidiaphragm. XR/XR chest 2V IMPRESSION: Consider chronic interstitial lung disease without acute airspace disease. Electronically signed by: Richard Forbes MD 10/27/2024 10:11 AM MARICEL VALENTIN
== END 2024-10-27 09:47 | disposition home or self-care (01) ==
LOC: HO.HMGCX 09:46
PROVIDERS: Visit Provider Physician Assistant
DX: R05.9 Cough, unspecified (principal); J98.8 Other specified respiratory disorders; B97.89 Other viral agents as the cause of diseases classified elsewhere; R50.9 Fever, unspecified
CPT/HCPCS: 0241U; 71046; 99212

== ENCOUNTER → 2024-10-27 09:51 | Outpatient (BNV) | payer MEDICARE, OTHER, SELFPAY | PROVIDERS: Visit Provider Radiology Diagnostic Radiology | DX: R05.9 Cough, unspecified (principal) | CPT/HCPCS: 71046 ==

== ENCOUNTER 2024-11-05 07:44 | Outpatient (AMB) | payer MEDICARE, OTHER, SELFPAY ==
--- NOTE | 2024-11-05 07:10 | A.OFFVIS_ITS ---
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: No longer using the insulin pump/Pt was on prednisone: Last Diabetic eye exam was on: 10/2023 Last Podiatry exam was on: DUE, has a coming up appt Most recent HbA1c: 8.8%, 11/05/2024 Random Glucose- 201 UUmg/dL, Today Sales Stock Associate Required: No Accompanied by: Self / Same As Patient Allergies azathioprine [From IMURAN] Allergy (Unknown, Verified 10/27/24 09:25) ABNORMAL LABS,HIVES etanercept [From ENBREL] Allergy (Unknown, Verified 10/27/24 09:25) HIVES infliximab [From REMICADE] Allergy (Unknown, Verified 10/27/24 09:25) RASH levofloxacin Allergy (Unknown, Verified 10/27/24 09:25) GI Upset nickel [NICKEL] Allergy (Unknown, Verified 10/27/24 09:25) UNKNOWN tramadol Adverse Reaction (Verified 10/27/24 09:25) Nausea, sweating, dizzy Medication List - Last Reconciled 11/05/24 by Teresa Valdez NP [AutoPAP 5-15 cm of water humidified AIR As directed] acetone (urine) test (Ketostix strips) As directed albuterol sulfate 90 mcg/actuation 1 puff inhalation QID PRN alcohol swabs 400 pad topical 6XD alendronate 70 mg PO ascorbic acid (vitamin C) 500 mg PO DAILY 90 days atorvastatin 20 mg PO DAILY blood glucose control, high As directed to calibrate meter blood pressure monitor (Blood Pressure Kit) As directed blood sugar diagnostic (OneTouch Verio test strips) TEST 3 TIMES A DAY blood-glucose meter ([employer] Verio Flex Start kit) As directed blood-glucose sensor (Dexcom G7 Sensor device) As directed change every 10 days bupropion HCl SR 100 mg PO BEDTIME certolizumab pegol (Cimzia) 200 mg subcut Q4W cholecalciferol (vitamin D3) 25 mcg PO DAILY fluticasone propionate 50 mcg/actuation (Flonase Allergy Relief) 2 sprays intranasal DAILY glucagon 3 mg/actuation (Baqsimi) 3 mg intranasal BID PRN 30 days hydroxyzine HCl 25 mg PO TID PRN insulin aspart (B3) pump cart 100 unit/mL (1.6 mL) (Fiasp Pumpcart) subcutaneous ly infuse up to 50 units day of the insulin pump; 1 month insulin degludec (Tresiba FlexTouch U-200 insulin) 20 units (0.1 mL) subcut BEDTIME 90 days insulin lispro (Humalog KwikPen (U-100) Insulin) inject 3-5 units prior to meals subcutaneously 3 times a day; levocetirizine 5 mg PO DAILY PRN lisinopril 30 mg PO DAILY lorazepam 1 mg PO DAILY PRN 30 days methylprednisolone PO PER PKG DIR for 6 days multivitamin 1 tab PO DAILY omega-3 fatty acids (Fish Oil Concentrate) 1,000 mg PO DAILY omeprazole 40 mg PO .prn ondansetron 8 mg PO Q8H PRN ondansetron HCl 8 mg PO Q8H PRN pen needle, diabetic (BD Ultra-Fine Margaret Pen Needle) USE 4 PEN NEEDLES DAILY WITH INSULIN HPI Comments Details: Patient is 69 yo female with DM diagnosed with diabetes s/p pancreatectomy in October 2017, who presents for continued management of diabetes.? She was started on an islet insulin pump and did not do well with the technology and she is back on basal/bolus insulin. She was last seen in the office on 08/04 with an A1c of 8.2%, A1c 11/05/2024 8.8% Past medical history: malignant neoplasm of the pancreas with resection on 11/06/17, 30+ years of smoking quit in 2018, anxiety, osteoporosis, depression, MNG Bechet's Syndrome,? bladder ca w/ resection in late 2020 Was sick for two weeks on prednisone for 6 days ?? ? Diabetes medications: Lantus 18-20 units Humalog 3-5 units Dexcom average glucose: 179 14 day continuous glucose monitor report reviewed Glucose Managment indicator 7.6 % Days with CGM data 95 % No lows in range 52% of the time higher than target 48% of the time Numbers start to increase after breakfast No retinopathy has annual eye exam. Has a appointment scheduled for October Has neuropathy Symptoms:? reports? numbness and tingling in lower extremities. Sees podiatry. Had an area that was reddened on 1 of her nail beds which has resolved. No Nephropathy: 09/02/2024 eGFR>60 microalbumin 18.0 on BERKLEY inhibitor Has hyperlipidemiaL on statin most recent LDL 73 09/02/2024 Hypoglycemia:? rarely but happens when more active Hyperglycemia: + polyuria,? 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 Thyroid nodule Right tibial fracture Tobacco abuse Fractured coccyx Pulmonary nodule History of DVT (deep vein thrombosis) Behcet's syndrome COPD (chronic obstructive pulmonary disease) Osteoporosis Anxiety GERD (gastroesophageal reflux disease) Malignant neoplasm of pancreas, unspecified Obstructive sleep apnea Surgical History History of back surgery History of surgery History of colonoscopy History of varicose veins of lower extremity History of surgery History of pancreatic surgery History of open reduction and internal fixation (ORIF) procedure H/O splenectomy History of cholecystectomy Family History Father Diabetes Advanced cardiac disease Mother Asthma Osteoporosis Brain cancer Brother Lung cancer Sister Breast cancer History of Coumadin therapy Brother Colostomy in place Daughter No problems noted. Son No problems noted. Social History Household Members: None Housing: House Do you presently have visiting nurse or other home services: No Alcohol intake: never Patient Tobacco Use Status: Current everyday Tobacco user Tobacco use type: Cigarette Cigarette Packs Per Day: 0.5 Cigarettes Per Day: 10 Years Smoked: 50 e-Cigarette/Vaping Use: Never Used Second Hand Smoke Exposure: No Advance Directives Date on File: 12/11/21 service: No Current occupational status: retired Cognitive needs: No Hearing needs: No Vision needs: Yes Physical Exam Vital Signs: Last Vital Signs Pulse 91 11/05/24 07:56 BP 122/70 11/05/24 07:56 BMI result Body Mass Index 28.6 Const Other: Absence of Cushingoid features. Absence of acromegalic features. Neck exam reveals nl size thyroid about 15 gms. No thyroid nodules palpable. Lungs occasional scattered end-expiratory wheeze. Heart S1 S2, Reg R/R. No M/R G. Skin exam reveals absence of vitiligo or acanthosis nigricans. Visual exam of foot performed. No ulcerations or open lesions. No inter digit maceration or fissuring. No onychomycosis, no callouses. Sensation intact to monofilament exam. Vibratory sensation is normal with 128 Hz tuning fork. 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 She was ill with an upper respiratory for 2 weeks and on steroids for 6 days which did drive up her number but are overall trends show that she has high throughout the day. Unable to increase Lantus because by the morning time 4-6 a.m. she is in good range any increase of Lantus would cause hypoglycemia at night. We will switch to Tresiba insulin which has a longer and flatter affect. I will see the patient back within the month to review her numbers. (2) Non-toxic multinodular goiter: Code(s): E04.2 - Nontoxic multinodular goiter Category: Medical Plan: Refer to Dr. Castaneda Orders: Orders AMB Glucose Monitoring Today E13.9 - Other specified diabetes mellitus without complications, S36.209S - Unspecified injury of unspecified part of pancreas, sequela AMB Hemoglobin A1c Today E13.9 - Other specified diabetes mellitus without complications, S36.209S - Unspecified injury of unspecified part of pancreas, sequela Referrals Endocrinology Referral E04.2 - Nontoxic multinodular goiter Medications: New insulin degludec (Tresiba FlexTouch U-200 insulin) 20 units (0.1 mL) subcut BEDTIME 90 days 9 mL 3RF Patient Instructions: The patient had an opportunity to ask questions regarding treatment plan. The p atient expressed understanding and agreement with the above treatment plan. The patient is aware they should contact our office by phone for worsening glucose readings or for any low blood sugars which may warrant a change in diabetes medication. Compliance is encouraged with medications and any followup testing/consults which may have been ordered. Take 15 carb carbohydrate grams to treat a low sugar (3-4 glucose tablets, half a glass of juice or 15 carbohydrate grams of soft candy such as gummie snacks). Recheck your sugar in 15 minutes and re-treat again with 15 carbohydrate grams if low or still with symptoms. Do not drive a car or operate machinery if you do not know what your blood sugar is, if it is low or in excess of 300. Check your feet daily looking for any signs of infection, drainage, redness, ulceration and seek medical attention if this occurs. Break in shoes gradually and do not wear open-toed shoes or walk stocking footed or barefooted. 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
[2024-11-05 07:56] VITALS: BP 122/70; PULSE 91; BMI 28.6
[2024-11-05 08:06] LABS: Glucose, Whole Blood 201 mg/dL (60-115)
== END 2024-11-05 08:26 | disposition home or self-care (01) ==
PROVIDERS: PCP Internal Medicine; Visit Provider Nurse Practitioner Adult Health
DX: E13.9 Other specified diabetes mellitus without complications (principal); S36.209S Unspecified injury of unspecified part of pancreas, sequela; E04.2 Nontoxic multinodular goiter
CPT/HCPCS: 95251; 99214; G2211

== ENCOUNTER → 2024-11-05 07:44 | Outpatient (BNVA) | payer MEDICARE, OTHER, SELFPAY | PROVIDERS: PCP Internal Medicine; Visit Provider Nurse Practitioner Adult Health | DX: E13.9 Other specified diabetes mellitus without complications (principal); E04.2 Nontoxic multinodular goiter; S36.209S Unspecified injury of unspecified part of pancreas, sequela; X58.XXXS Exposure to other specified factors, sequela | CPT/HCPCS: 82947; 83036; 99212 ==

== ENCOUNTER 2024-12-13 07:46 | Outpatient (AMB) | payer MEDICARE, OTHER, SELFPAY ==
--- NOTE | 2024-12-13 07:47 | A.OFFVIS_ITS ---
Vital Signs 12/13/24 07:48 Height 5 ft 2.5 in Weight 164 lb 3.91 oz BMI 29.6 BP 120/82 Blood Pressure Location Lt brachial Position Sitting Pulse 78 Pulse Source Pulse Oximeter Pulse Oximetry (%) 98 Oxygen Delivery Method Room Air Intake Visit Reasons: Nontoxic multinodular goiter Intake Note: Patient present today for Nontoxic multinodular goiter office visit. Allergies azathioprine [From IMURAN] Allergy (Unknown, Verified 12/13/24 07:50) ABNORMAL LABS,HIVES etanercept [From ENBREL] Allergy (Unknown, Verified 12/13/24 07:50) HIVES infliximab [From REMICADE] Allergy (Unknown, Verified 12/13/24 07:50) RASH levofloxacin Allergy (Unknown, Verified 12/13/24 07:50) GI Upset nickel [NICKEL] Allergy (Unknown, Verified 12/13/24 07:50) UNKNOWN tramadol Adverse Reaction (Verified 12/13/24 07:50) Nausea, sweating, dizzy Medication List - Last Reconciled 12/13/24 by Regla Mcmullen MD [AutoPAP 5-15 cm of water humidified AIR As directed] acetone (urine) test (Ketostix strips) As directed albuterol sulfate 90 mcg/actuation 1 puff inhalation QID PRN alcohol swabs 400 pad topical 6XD alendronate 70 mg PO ascorbic acid (vitamin C) 500 mg PO DAILY 90 days atorvastatin 20 mg PO DAILY blood glucose control, high As directed to calibrate meter blood pressure monitor (Blood Pressure Kit) As directed blood sugar diagnostic (OneTouch Verio test strips) TEST 3 TIMES A DAY blood-glucose meter (OneTouch Verio Flex Start kit) As directed blood-glucose sensor (Dex[employer] G7 Sensor device) As directed change every 10 days bupropion HCl SR 100 mg PO BEDTIME certolizumab pegol (Cimzia) 200 mg subcut Q4W cholecalciferol (vitamin D3) 25 mcg PO DAILY fluticasone propionate 50 mcg/actuation (Flonase Allergy Relief) 2 sprays intranasal DAILY glucagon 3 mg/actuation (Baqsimi) 3 mg intranasal BID PRN 30 days hydroxyzine HCl 25 mg PO TID PRN insulin aspart (B3) pump cart 100 unit/mL (1.6 mL) (Fiasp Pumpcart) subcutaneously infuse up to 50 units day of the insulin pump; 1 month insulin degludec (Tresiba FlexTouch U-200 insulin) 20 units (0.1 mL) subcut BEDTIME 90 days insulin lispro (Humalog KwikPen (U-100) Insulin) inject 3-5 units prior to meals subcutaneously 3 times a day; levocetirizine 5 mg PO DAILY PRN lisinopril 30 mg PO DAILY lorazepam 1 mg PO DAILY PRN 30 days multivitamin 1 tab PO DAILY omega-3 fatty acids (Fish Oil Concentrate) 1,000 mg PO DAILY omeprazole 40 mg PO .prn ondansetron 8 mg PO Q8H PRN ondansetron HCl 8 mg PO Q8H PRN pen needle, diabetic (BD Ultra-Fine Margaret Pen Needle) USE 4 PEN NEEDLES DAILY WITH INSULIN HPI Comments Details: 69-year-old female coming in today for follow up of nontoxic multinodular goiter. She also sees Teresa Lua APRN for diabetes mellitus and our practice, this was not addressed today, last visit October 2024, next visit for diabetes mellitus in November 2024. HPI She has had a history of thyroid nodules at least dating back to 2016. Apparently FNA in 2016 of a right dominant nodule with benign cytology. 03/08/2021: FNA of the right midpole nodule with benign cytology, [place] category 2. Per chart review in 2020 the left-sided nodule was also biopsied with benign cytology. Interval history 09/03/2024: Ultrasound thyroid, I reviewed the images myself which showed stable size of the left superior 1.2 cm dominant nodule TR 3 category, stable left midpole 1.5 cm which even though was reported as a TR 5 category nodule due to punctate echogenic foci, when I reviewed the images myself it looks more like a spongiform nodule. Other subcentimeter right-sided nodules noted. At this point I do not have records of the left nodule biopsies, however per my review of the images none of the left-sided nodules need FNA at this point. We will continue to monitor these with surveillance ultrasounds. Reports some intermittent trouble swallowing not too often, per patient she has had dilatation before. No changes in voice. No hyperthyroid or hypothyroid symptoms. no history of head or neck radiation sister had thyroid disease , not sure if she had cancer. Physical exam General: sitting comfortably in no acute distress HEENT: normocephalic/atraumatic, Neck: supple, symmetrical, no thyromegaly , no dorsocervical or supraclavicular fat pads Cardiac: normal heart sounds Pulm: normal breath sounds B/L, no added breath sounds Abd: not distended, no tenderness Extremities: no edema, no signs of myxedema Laboratory Tests 09/02/24 08:42 TSH 1.65 US THYROID 09/03/24 CLINICAL INFORMATION: Multinodular goiter. COMPARISON: 01/10/2023, 02/25/2022. 02/05/2021. FNA right thyroid nodule 03/08/2021. TECHNIQUE: Linear transducer grayscale and color Doppler examination with attention to the region of the thyroid. FINDINGS: SIZE: Measurements of the thyroid lobes and nodules are given in sagittal, anteroposterior and transverse dimensions respectively. Right Thyroid Lobe: 4.4 x 1.9 x 1.6 cm, volume 7.0 mL. (Previously 6.7 mL). Parenchyma: The gland echotexture is homogeneous. Thyroid vascularity is normal. Left Thyroid Lobe: 4.4 x 2.0 x 1.9 cm, volume 8.8 mL. (Previously 8.5 mL). Parenchyma: The gland echotexture is homogeneous. Thyroid vascularity is normal. Isthmus: 0.5 cm in maximum AP dimension. Estimated total number of nodules greater than or equal to 1 cm: 2. Avionics Manager nodules are described as follows: 1. Location: Right upper pole. Size: 0.8 x 0.7 x 0.8 cm, volume 0.22 mL. (Unchanged) Nodule characteristics: Composition: Mixed cystic and solid (1). Echogenicity: Isoechoic (1). Shape: Not taller than wide (0). Margins: Smooth (0). Echogenic Foci: Punctate echogenic foci (3). ACR TI-RADS total points: 5 ACR TI-RADS category: 4 2. Location: Left upper pole. Size: 1.2 x 0.7 x 0.9 cm, volume 0.38 mL. (Previously 0.27 mL) Nodule characteristics: Composition: Mixed cystic and solid (1). Echogenicity: Hypoechoic (2). Shape: Not taller than wide (0). Margins: Smooth (0). Echogenic Foci: None (0). ACR TI-RADS total points: 3 ACR TI-RADS category: 3 3. Location: Left midpole. Size: 1.5 x 1.0 x 1.1 cm, volume 0.82 mL. (Unchanged) Nodule characteristics: Composition: Solid/almost completely solid (2). Echogenicity: Hypoechoic (2). Shape: Not taller than wide (0). Margins: Smooth (0). Echogenic Foci: Punctate echogenic foci (3). ACR TI-RADS total points: 7 ACR TI-RADS category: 5 4. Location: Right lower pole. Size: 0.8 x 0.5 x 0.6 cm, volume 0.12 mL. (Previously not seen) Nodule characteristics: Composition: Solid (2). Echogenicity: Isoechoic (1). Shape: Not taller than wide (0). Margins: Smooth (0). Echogenic Foci: None (0). ACR TI-RADS total points: 3 ACR TI-RADS category: 3 5. Location: Right upper pole. Size: 0.4 x 0.3 x 0.4 cm, volume 0.02 mL. (Previously not seen) Nodule characteristics: Composition: Mixed cystic and solid (1). Echogenicity: Cannot be determined (1). Shape: Not taller than wide (0). Margins: Smooth (0). Echogenic Foci: Macrocalcifications (1). ACR TI-RADS total points: 3 ACR TI-RADS category: 3 NODES: No lymphadenopathy is seen in the tissue surrounding the thyroid gland. US/US thyroid IMPRESSION: 1. Multinodular goiter. 2. Stable 0.8 cm TR category 4 nodule right upper pole. 3. Minimally enlarged 1.2 cm TR category 3 nodule left upper pole. 4. Stable 1.5 cm TR category 5 nodule left midpole. 5. Not previously imaged, 0.8 cm TR category 4 nodule right lower pole. No follow-up suggested. 6. Not previously imaged, 0.4 cm TR category 3 nodule right upper pole. No follow-up suggested. 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 Thyroid nodule Right tibial fracture Tobacco abuse Fractured coccyx Pulmonary nodule History of DVT (deep vein thrombosis) Behcet's syndrome COPD (chronic obstructive pulmonary disease) Osteoporosis Anxiety GERD (gastroesophageal reflux disease) Malignant neoplasm of pancreas, unspecified Obstructive sleep apnea Surgical History History of back surgery History of surgery History of colonoscopy History of varicose veins of lower extremity History of surgery History of pancreatic surgery History of open reduction and internal fixation (ORIF) procedure H/O splenectomy History of cholecystectomy Family History Father Diabetes Advanced cardiac disease Mother Asthma Osteoporosis Brain cancer Brother Lung cancer Sister Breast cancer History of Coumadin therapy Brother Colostomy in place Daughter No problems noted. Son No problems noted. Social History Household Members: None Housing: House Do you presently have visiting nurse or other home services: No Alcohol intake: never Patient Tobacco Use Status: Current everyday Tobacco user Tobacco use type: Cigarette Cigarette Packs Per Day: 0.5 Cigarettes Per Day: 10 Years Smoked: 50 e-Cigarette/Vaping Use: Never Used Second Hand Smoke Exposure: No Advance Directives Date on File: 12/11/21 service: No Current occupational status: retired Cognitive needs: No Hearing needs: No Vision needs: Yes Physical Exam Vital Signs: Last Vital Signs Pulse 78 12/13/24 07:48 BP 120/82 12/13/24 07:48 Pulse Ox 98 12/13/24 07:48 Oxygen Delivery Method Room Air 12/13/24 07:48 BMI result Body Mass Index 29.6 Assessment & Plan Assessment & Plan (1) Non-toxic multinodular goiter: Code(s): E04.2 - Nontoxic multinodular goiter Category: Medical Plan: 69-year-old female with a history of pancreatic and bladder cancer, with no personal history head or neck radiation, with no family history of thyroid cancer, who is coming in today for follow up of nontoxic multinodular goiter. She has had a history of thyroid nodules at least dating back to 2017. Apparently FNA in 2017 of a right dominant nodule with benign cytology. 03/08/2021: FNA of the right midpole nodule with benign cytology, [place] category 2. Per chart review in 2020 the left-sided nodule was also biopsied with benign cytology. 09/03/2024: Ultrasound thyroid, I reviewed the images myself which showed stable size of the left superior 1.2 cm dominant nodule TR 3 category, stable left midpole 1.5 cm which even though was reported as a TR 5 category nodule due to punctate echogenic foci, when I reviewed the images myself it looks more like a spongiform nodule. Other subcentimeter right-sided nodules noted. At this point I do not have records of the left nodule biopsies, however per my review of the images none of the left-sided nodules need FNA at this point. We will continue to monitor these with surveillance ultrasounds. Plan: -ordered ultrasound of the thyroid to be done in August 2025 -TSH with reflex free T4 to be done in August 2025 -follow up in September 2025 Plan See above Orders: Orders US thyroid 09/07/25 E04.2 - Nontoxic multinodular goiter TSH reflex Free T4 Today E04.2 - Nontoxic multinodular goiter Patient Instructions: Do thyroid ultrasound in August 2025, somebody is going to call you to schedule this Do thyroid blood work in August 2025 Follow up in September 2025 to discuss results Coding Level of Care Code Est Pt Level 3 (88788) Diagnoses Non-toxic multinodular goiter E04.2
[2024-12-13 07:48] VITALS: BP 120/82; PULSE 78; O2SAT 98; BMI 29.6
== END 2024-12-13 08:21 | disposition home or self-care (01) ==
LOC: HO.ENCR 07:47
PROVIDERS: PCP Internal Medicine; Visit Provider Student in an Organized Health Care Education/Training Program
DX: E04.2 Nontoxic multinodular goiter (principal)
CPT/HCPCS: 99213

== ENCOUNTER → 2024-12-13 07:46 | Outpatient (BNVA) | payer MEDICARE, OTHER, SELFPAY | PROVIDERS: PCP Internal Medicine; Visit Provider Student in an Organized Health Care Education/Training Program | DX: E04.2 Nontoxic multinodular goiter (principal) | CPT/HCPCS: 99212 ==

== ENCOUNTER 2024-12-15 12:30 | Outpatient (AMB) | payer MEDICARE, OTHER, SELFPAY ==
--- NOTE | 2024-12-15 12:33 | MHC.PC.OV ---
Vital Signs 12/15/24 12:43 12/15/24 13:15 Height 5 ft 2.5 in Weight 161 lb 8 oz BMI 29.1 BP 140/72 H 138/80 Blood Pressure Location Lt brachial Lt brachial Position Sitting Sitting Pulse 95 Pulse Source Pulse Oximeter Temp 97.0 F Temp Source Temporal Artery Scan Pulse Oximetry (%) 96 Oxygen Delivery Method Room Air Intake Visit Reasons: DM, LISHA, tobacco abuse Allergies azathioprine [From IMURAN] Allergy (Unknown, Verified 12/15/24 12:44) ABNORMAL LABS,HIVES etanercept [From ENBREL] Allergy (Unknown, Verified 12/15/24 12:44) HIVES infliximab [From REMICADE] Allergy (Unknown, Verified 12/15/24 12:44) RASH levofloxacin Allergy (Unknown, Verified 12/15/24 12:44) GI Upset nickel [NICKEL] Allergy (Unknown, Verified 12/15/24 12:44) UNKNOWN tramadol Adverse Reaction (Verified 12/15/24 12:44) Nausea, sweating, dizzy Tobacco use date assessed: 12/15/24 Fall risk assessment: No Falls in past year Last assessed Fall Risk: 12/15/24 Dental Screening Dental Screen Date: 12/15/24 Did you have a dental visit in the last 12 months?: Yes Did you have a dental problem in the last 6 months where you did not have access to dental care?: No Was dental information given to patient?: Patient has dentist HPI DM, LISHA, tobacco abuse HPI Details seeing ENDO, concern on alot of low BS- decline counselling PFS Medical History Intractable pain Pneumonia Daytime sleepiness Common bile duct dilatation Colon cancer screening Left hip pain Left knee pain Wheezes Low back pain radiating to left lower extremity Bladder cancer Behcet's disease COVID-19 virus infection Essential hypertension Uncontrolled diabetes mellitus Non-toxic multinodular goiter Dysuria Hyperlipidemia LDL goal <100 Vitamin D insufficiency 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 Thyroid nodule Right tibial fracture Tobacco abuse Fractured coccyx Pulmonary nodule History of DVT (deep vein thrombosis) Behcet's syndrome COPD (chronic obstructive pulmonary disease) Osteoporosis Anxiety GERD (gastroesophageal reflux disease) Malignant neoplasm of pancreas, unspecified Obstructive sleep apnea Surgical History History of back surgery History of surgery History of colonoscopy History of varicose veins of lower extremity History of surgery History of pancreatic surgery History of open reduction and internal fixation (ORIF) procedure H/O splenectomy History of cholecystectomy Family History Father Diabetes Advanced cardiac disease Mother Asthma Osteoporosis Brain cancer Brother Lung cancer Sister Breast cancer History of Coumadin therapy Brother Colostomy in place Daughter No problems noted. Son No problems noted. Social History Household Members: None Housing: House Do you presently have visiting nurse or other home services: No Alcohol intake: never Patient Tobacco Use Status: Current everyday Tobacco user Tobacco use type: Cigarette Cigarette Packs Per Day: 0.5 Cigarettes Per Day: 10 Years Smoked: 50 e-Cigarette/Vaping Use: Never Used Second Hand Smoke Exposure: No Advance Directives Date on File: 12/11/21 service: No Current occupational status: retired Cognitive needs: No Hearing needs: No Vision needs: Yes Questionnaire PHQ-9 Over the last 2 weeks, how often have you been bothered by any of the following problems? 1. Little interest or pleasure in doing things: not at all 2. Feeling down, depressed, or hopeless: several days 3. Trouble falling or staying asleep, or sleeping too much: not at all 4. Feeling tired or having little energy: several days 5. Poor appetite or overeating: several days 6. Feeling bad about yourself - or that you are a failure or have let yourself or your family down: not at all 7. Trouble concentrating on things, such as reading the newspaper or watching television: several days 8. Moving or speaking so slowly that other people could have noticed. Or the opposite - being so fidgety or restless that you have been moving around a lot more than usual: several days 9. Thoughts that you would be better off or of hurting yourself in some way: not at all Total score: 5 Depression Screening Interpretation: Negative Depression Screening Done: Yes 10827 - PHQ-9 Billing: Yes Source: Developed by Drs. Sukhdeep Franz, Ana Alexander, Varinder Muro and colleagues, with an educational malachi from [employer]. Thrive Questionnaire Date Thrive assessed: 12/15/24 I am a: Patient What is your living situation today?: I have a steady place to live Within the past 12 months, did the food you bought not last and you didn't have the money to get more?: Never true Within the past 12 months, did you worry whether your food would run out before you got money to buy more?: Never true Do you have trouble paying for medicines?: No Do you have trouble getting transportation to medical appointments?: No Do you have trouble paying your heating and electricity bill?: No Do you have trouble taking care of your child, family member or friend?: No Do you have trouble with day-to-day activities such as bathing, preparing meals, shopping, managing finances, etc.?: No Are you currently unemployed and looking for a job?: No Are you interested in more education?: No THRIVE Score: 0 AUDIT C Alcohol Use Questionnaire (AUDIT-C) 1. How often do you have a drink containing alcohol?: Never 3. How often do you have six or more drinks on one occasion?: Never Total Score: 0 Score Reviewed/Action Taken: No LISHA-7 AMB Questionnaire LISHA-7 Date LISHA - 7 assessed: 12/15/24 Feeling nervous, anxious, or on edge: 1 = Several days Not being able to stop or control worryin = Several days Worrying too much about different things: 1 = Several days Trouble relaxin = Several days Being so restless that it is hard to sit still: 1 = Several days Becoming easily annoyed or irritable: 0 = Not at all Feeling afraid as if something awful might happen: 1 = Several days Total LISHA-7 score (0-4 normal; 5-9 mild; 10-14 moderate; 15-21 severe): 6 Source: Developed by Drs. Sukhdeep Farnz, Ana Alexander, Varinder Muro and colleagues, with an educational malahci from [employer]. LISHA-7 Assessment Billing ILSHA-7 Assessment Tool: LISHA-7 Assessment 43947 Physical exam (Primary Care) Vital Signs: Last Vital Signs Temp 97.0 F 12/15/24 12:43 Pulse 95 12/15/24 12:43 BP 138/80 12/15/24 13:15 Pulse Ox 96 12/15/24 12:43 Oxygen Delivery Method Room Air 12/15/24 12:43 BMI result Body Mass Index 29.1 Tobacco/Smoking Status: Tobacco use Status Tobacco use date assessed 12/15/24 12/15/24 12:49 Patient Tobacco Use Status Current everyday Tobacco 12/15/24 12:35 Tobacco use type Cigarette 12/15/24 12:35 e-Cigarette/Vaping Use Never Used 12/15/24 12:35 PHQ-9: PHQ-9 Score PHQ-9: Total score 5 12/15/24 13:12 Depression Screening Interpretation: Negative Thrive Assessment: Date of Thrive Assessment Date Thrive assessed 12/15/24 12/15/24 12:49 Const General: alert; No acute distress Eyes Conjunctivae: conjunctivae normal Resp Auscultation: clear to auscultation bilaterally Cardio Rate: regular rate Rhythm: regular rhythm GI Inspection: Yes normal to inspection Extrem General: Yes normal to inspection and No edema Coding Level of Care Code Est Pt Level 4 (72578) Complex EM visit Add On G2211 Diagnoses Tobacco abuse Z72.0 Pulmonary emphysema, unspecified emphysema type J43.9 COPD type: emphysema Emphysema type: unspecified Obstructive sleep apnea G47.33 Hyperlipidemia LDL goal <100 E78.5 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 (2) COPD (chronic obstructive pulmonary disease): Code(s): J44.9 - Chronic obstructive pulmonary disease, unspecified Category: Medical Qualifiers: COPD type: emphysema Emphysema type: unspecified Qualified Code(s): J43.9 - Emphysema, unspecified Plan: Patient is advised to stopsmoking (3) Obstructive sleep apnea: Comment: Study done 01/02/2023 mild, AutoPAP 5-15 cm of water Code(s): G47.33 - Obstructive sleep apnea (adult) (pediatric) Category: Medical Plan: Continue to use the CPAP more than 4 hours a night and benefits from this. (4) Hyperlipidemia LDL goal <100: Code(s): E78.5 - Hyperlipidemia, unspecified Category: Medical Plan: Avoid fried foods, chicken skin, eggs, butter margarine, pastries and meat. Be it pork or beef they have a lot of cholesterol LDL goal of less than 100 and triglyceride of less than 150. 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 On Tresiba 20 units once a day Humalog sliding scale (6) Generalized anxiety disorder: Comment: Declined any referral for counseling Code(s): F41.1 - Generalized anxiety disorder Category: Medical Plan: Continue with present medication (7) Behcet's disease: Code(s): M35.2 - Behcet's disease Category: Medical Plan: Patient follows up with Rheumatology on Cimzia (8) Essential hypertension: Code(s): I10 - Essential (primary) hypertension Category: Medical Plan: Continue with blood pressure medication. Decrease salt intake and exercise lisinopril 30 mg once a day Plan History of Present Illness The patient is a 69-year-old female presenting for follow-up on chronic conditions, primarily diabetes and hypertension. She was previously treated successfully for pancreatic cancer with a pancreatectomy in 2018. She has a notable history of obstructive sleep apnea, which is managed with CPAP use for more than four hours nightly, and chronic obstructive pulmonary disease exacerbated by her smoking habit. Despite ongoing attempts to quit smoking with pharmacological support from Wellbutrin, she reports continued smoking. Her diabetes management was transitioned to Tresiba at a 20-unit dose daily, with reported delays due to the completion of previous insulin therapy. She described issues with conflicting blood glucose readings between her Dexcom device and fingerstick checks, reporting a considerable variance that has led to confusion regarding her glucose control. Her A1c filiberto to 8.8, possibly due to a short course of prednisone prescribed during her recent flu illness episode, which was accompanied by respiratory symptoms necessitating urgent care. Her GERD and osteoporosis are under routine observation, with osteoporosis previously treated with alendronate. The patient?s hypercholesterolemia is managed with atorvastatin, and most recent lab work shows an LDL of 73 mg/dL. She also receives management for her anxiety disorder without current engagement in counseling or therapy. Health Maintenance - Up-to-date mammogram: July 2024 - Bone density scan: December 2022 - CPAP therapy usage recommendation: >4 hours/night - Smoking cessation support: ongoing with Wellbutrin - Cholesterol LDL management goal: <100 mg/dL - Triglyceride management goal: <150 mg/dL - Endocrinology follow-up for thyroid: Ultrasound and blood work planned for August 2025 - Vaccinations: Flu shot received, pneumonia, and shingles vaccines updated Social History - Smoking: Ongoing habit with attempts to quit using Wellbutrin 100 mg - Living arrangements: Lives alone, exploring shared living options - Family: Daughter involved in healthcare sector - Lifestyle: Potential shared living plan for companionship and financial support Review of Systems - Respiratory: Reports wheezing associated with recent flu - Endocrine: Reports episodes of glucose discrepancies between Dexcom and fingerstick readings Physical Exam Results - Lab: LDL level of 73 mg/dL as of August 2024 - Past imaging: Chest X-ray in October showed chronic interstitial lung disease Plan The treatment plan focuses on managing her diabetes with Tresiba, with careful observation of blood glucose discrepancies between her devices to gauge adjustments accordingly. Her hypertension treatment with lisinopril will continue as is, though she is advised to monitor readings due to time shifts in her routine. Smoking cessation remains pivotal for her COPD management, with current efforts supported by Wellbutrin therapy necessitating potential recalibration for greater efficacy. Her regimen will continue to support her cardiovascular risk profile with atorvastatin therapy aimed at maintaining her LDL and triglycerides within conventional therapeutic targets. Regular rheumatology and endocrinology check-ups provide necessary coverage of her osteoporosis and thyroid-associated conditions. Follow-up appointments are encouraged to ensure continuity in managing these chronic health issues effectively. Patient was informed and verbally consented to the use of an ambient scribe for clinic note documentation during this visit. Discussion Notes I reviewed the significance of her recent glucose fluctuations and advised a cautious approach toward adjusting insulin therapy while promptly reporting any further discrepancies. The flu?s exacerbation of symptoms was acknowledged, emphasizing avoiding future steroid use to avert such glucose disruptions. There was reiterated encouragement on smoking cessation, particularly as it perturbs her COPD status, with Wellbutrin already in use for support. We focused on her cardiovascular risk reduction, ensuring atorvastatin dosage aligns with cholesterol management objectives. We discussed vigilance concerning blood pressure, leveraging essential records, especially observing shifts in routine as she adjusts the timing of lisinopril intake. Anticipatory guidance was issued regarding upcoming specialty appointments and procedural needs for continued health oversight. Patient Instructions - Continue Tresiba 20 units daily; monitor blood glucose for discrepancies. - Keep regular logs of blood pressure to assess stability post-time change in medication. - Strive for complete smoking cessation; continue Wellbutrin at recommended dosage. - Maintain CPAP therapy usage as recommended for obstructive sleep apnea. - Ensure follow-up with endocrinology in August 2025 for thyroid assessment. - Report any significant symptom changes or medication side effects promptly. - Follow cholesterol management goals; maintain atorvastatin regimen. - Attend scheduled specialist appointments for comprehensive health management. Medications: Refilled lorazepam 1 mg PO DAILY PRN 30 tabs 2RF anxiety 30 days I10 - Essential (primary) hypertension ondansetron 8 mg PO Q8H PRN 14 tabs 0RF nausea and vomiting
[2024-12-15 12:43] VITALS: BP 140/72; PULSE 95; TEMP 36.1; O2SAT 96; BMI 29.1
[2024-12-15 13:15] VITALS: BP 138/80
== END 2024-12-15 13:34 | disposition home or self-care (01) ==
LOC: HO.HMCH 12:30
PROVIDERS: Visit Provider Internal Medicine
DX: J43.9 Emphysema, unspecified (principal); E13.9 Other specified diabetes mellitus without complications; Z72.0 Tobacco use; M35.2 Behcet's disease; G47.33 Obstructive sleep apnea (adult) (pediatric); E78.5 Hyperlipidemia, unspecified; S36.209S Unspecified injury of unspecified part of pancreas, sequela; F41.1 Generalized anxiety disorder; I10 Essential (primary) hypertension

== ENCOUNTER → 2024-12-15 12:30 | Outpatient (BNVA) | payer MEDICARE, OTHER, SELFPAY | PROVIDERS: Visit Provider Internal Medicine | DX: J43.9 Emphysema, unspecified (principal); G47.33 Obstructive sleep apnea (adult) (pediatric); E78.5 Hyperlipidemia, unspecified; E13.9 Other specified diabetes mellitus without complications; S36.209S Unspecified injury of unspecified part of pancreas, sequela; F41.1 Generalized anxiety disorder; M35.2 Behcet's disease; I10 Essential (primary) hypertension; Z72.0 Tobacco use | CPT/HCPCS: 96127; 99212 ==

== ENCOUNTER 2025-01-12 09:21 | Outpatient (AMB) | payer MEDICARE, OTHER, SELFPAY ==
--- NOTE | 2025-01-12 09:26 | A.OFFVIS_ITS ---
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: Last Diabetic eye exam was on: 10/2023 Last Podiatry exam was on: 11/15/2024 at [facility] Most recent HbA1c: 8.8%, 11/05/2024 Random Glucose- 99 mg/dL, Today Mortician Investigator Required: No Accompanied by: Self / Same As Patient Allergies azathioprine [From IMURAN] Allergy (Unknown, Verified 01/12/25 09:27) ABNORMAL LABS,HIVES etanercept [From ENBREL] Allergy (Unknown, Verified 01/12/25 09:27) HIVES infliximab [From REMICADE] Allergy (Unknown, Verified 01/12/25 09:27) RASH levofloxacin Allergy (Unknown, Verified 01/12/25 09:27) GI Upset nickel [NICKEL] Allergy (Unknown, Verified 01/12/25 09:27) UNKNOWN tramadol Adverse Reaction (Verified 01/12/25 09:27) Nausea, sweating, dizzy Medication List - Last Reconciled 01/12/25 by Teresa Valdez NP [AutoPAP 5-15 cm of water humidified AIR As directed] acetone (urine) test (Ketostix strips) As directed albuterol sulfate 90 mcg/actuation 1 puff inhalation QID PRN alcohol swabs 400 pad topical 6XD alendronate 70 mg PO ascorbic acid (vitamin C) 500 mg PO DAILY 90 days atorvastatin 20 mg PO DAILY blood glucose control, high As directed to calibrate meter blood pressure monitor (Blood Pressure Kit) As directed blood sugar diagnostic (OneTouch Verio test strips) TEST 3 TIMES A DAY blood-glucose meter (bMenuTouch Verio Flex Start kit) As directed blood-glucose sensor (Dexcom G7 Sensor device) As directed change every 10 days bupropion HCl SR 100 mg PO BEDTIME certolizumab pegol (Cimzia) 200 mg subcut Q4W cholecalciferol (vitamin D3) 25 mcg PO DAILY fluticasone propionate 50 mcg/actuation (Flonase Allergy Relief) 2 sprays intranasal DAILY glucagon 3 mg/actuation (Baqsimi) 3 mg intranasal BID PRN 30 days hydroxyzine HCl 25 mg PO TID PRN insulin lispro (Humalog KwikPen (U-100) Insulin) inject 3-5 units prior to meals subcutaneously 3 times a day; levocetirizine 5 mg PO DAILY PRN lisinopril 30 mg PO DAILY lorazepam 1 mg PO DAILY PRN 30 days multivitamin 1 tab PO DAILY omega-3 fatty acids (Fish Oil Concentrate) 1,000 mg PO DAILY omeprazole 40 mg PO .prn ondansetron 8 mg PO Q8H PRN ondansetron HCl 8 mg PO Q8H PRN pen needle, diabetic (BD Ultra-Fine Margaret Pen Needle) USE 4 PEN NEEDLES DAILY WITH INSULIN Tresiba FlexTouch U-200 (insulin degludec) 20 units (0.1 mL) subcut BEDTIME 90 days NS HPI Comments Details: Patient is 69 yo female with DM diagnosed with diabetes s/p pancreatectomy in October 2017, who presents for continued management of diabetes.? She was started on an islet insulin pump and did not do well with the technology and she is back on basal/bolus insulin. She was last seen in the office on 08/04 with an A1c of 8.2%, A1c 11/05/2024 8.8% Past medical history: malignant neoplasm of the pancreas with resection on 11/06/17, 30+ years of smoking quit in 2018, anxiety, osteoporosis, depression, MNG Bechet's Syndrome,? bladder ca w/ resection in late 2020 Was sick for two weeks on prednisone for 6 days ?? ? Diabetes medications: Tresiba 20 units Humalog 2-4 units occasionally will take 5 units for cereal or bagel when she is doing yard work, stacking wood she will skip nshot acting dose before Always busy this time of year expecting 4 cords of wood to be stacked No retinopathy has annual eye exam each year in Oct Has neuropathy Symptoms:? reports? numbness and tingling in lower extremities. Sees podiatry. No Nephropathy: 09/02/2024 eGFR>60 microalbumin 18.0 on BERKLEY inhibitor Has hyperlipidemiaL on statin most recent LDL 73 09/02/2024 Hypoglycemia:? rarely but happens when more active Hyperglycemia: + polyuria,? 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 Thyroid nodule Right tibial fracture Tobacco abuse Fractured coccyx Pulmonary nodule History of DVT (deep vein thrombosis) Behcet's syndrome COPD (chronic obstructive pulmonary disease) Osteoporosis Anxiety GERD (gastroesophageal reflux disease) Malignant neoplasm of pancreas, unspecified Obstructive sleep apnea Surgical History History of back surgery History of surgery History of colonoscopy History of varicose veins of lower extremity History of surgery History of pancreatic surgery History of open reduction and internal fixation (ORIF) procedure H/O splenectomy History of cholecystectomy Family History Father Diabetes Advanced cardiac disease Mother Asthma Osteoporosis Brain cancer Brother Lung cancer Sister Breast cancer History of Coumadin therapy Brother Colostomy in place Daughter No problems noted. Son No problems noted. Social History Household Members: None Housing: House Do you presently have visiting nurse or other home services: No Alcohol intake: never Patient Tobacco Use Status: Current everyday Tobacco user Tobacco use type: Cigarette Cigarette Packs Per Day: 0.5 Cigarettes Per Day: 10 Years Smoked: 50 e-Cigarette/Vaping Use: Never Used Second Hand Smoke Exposure: No Advance Directives Date on File: 12/11/21 service: No Current occupational status: retired Cognitive needs: No Hearing needs: No Vision needs: Yes Physical Exam Vital Signs: Last Vital Signs Pulse 71 01/12/25 09:27 BP 122/70 01/12/25 09:27 Pulse Ox 98 01/12/25 09:27 Oxygen Delivery Method Room Air 01/12/25 09:27 BMI result Body Mass Index 29.0 Const Other: Absence of Cushingoid features. Absence of acromegalic features. Neck exam reveals nl size thyroid about 15 gms. No thyroid nodules palpable. No carotid bruits present. Lungs CTA. Heart S1 S2, Reg R/R. No M/R G. Skin exam reveals absence of vitiligo or acanthosis nigricans. No edema Visual exam of foot performed. No ulcerations or open lesions. No inter digit maceration or fissuring. + onychomycosis, no callouses. Sensation intact to monofilament exam. Vibratory sensation is normal with 128 Hz tuning fork. 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 Her glucose management indicator is substantially lower than her last A1c. She also reports that she will be expanding her activity levels stacking cord was doing yd work daily. She skips Humalog dosing pre yd work to prevent hypoglycemia. We will continue current dosing. Per insurance request degludec changed to Tresiba The patient had an opportunity to ask questions regarding treatment plan. The patient expressed understanding and agreement with the above treatment plan. The patient is aware they should contact our office by phone for worsening glucose readings or for any low blood sugars which may warrant a change in diabetes medication. Compliance is encouraged with medications and any followup testing/consults which may have been ordered. Medications: Changed From insulin degludec (Tresiba FlexTouch U-200 insulin) 20 units (0.1 mL) subcut BEDTIME 90 days 9 mL 3RF To Tresiba FlexTouch U-200 (insulin degludec) 20 units (0.1 mL) subcut BEDTIME 90 days 9 mL 3RF NS Refilled cholecalciferol (vitamin D3) 25 mcg PO DAILY 90 caps 2RF Tresiba FlexTouch U-200 (insulin degludec) 20 units (0.1 mL) subcut BEDTIME 90 days 9 mL 3RF NS Patient Instructions: Take 15 carb carbohydrate grams to treat a low sugar (3-4 glucose tablets, half a glass of juice or 15 carbohydrate grams of soft candy such as gummie snacks). Recheck your sugar in 15 minutes and re-treat again with 15 carbohydrate grams if low or still with symptoms. Do not drive a car or operate machinery if you do not know what your blood sugar is, if it is low or in excess of 300. The patient was counseled to achieve a target A1C of 7% (154 avg). Fasting blood sugars should be 90-130 in the morning and less than 180 two hours after meals. Reviewed the relationship between poor diabetic control and the development of complications. 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
[2025-01-12 09:27] VITALS: BP 122/70; PULSE 71; O2SAT 98; BMI 29.0
[2025-01-12 09:41] LABS: Glucose, Whole Blood 99 mg/dL (60-115)
--- OUTSIDE RECORDS SUMMARY | 2025-01-12 10:17 | XMS_ITS ---
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 Name Role Phone Gloria Villarreal Primary Care Provider Unavailabl e Black, Chelsie Unavailable [phone] Allergies Allergen (clinical drug ingredient) Drug/Non Drug Allergy documented on EMR Reaction Allergy Type Onset Date Status azathioprine Imuran Unknown Drug Allergy Acti ve infliximab Remicade rash Drug Allergy Active dexamethasone Dexamethasone blood pressure goes up Drug Allergy Active etanercept Etanercept hives,welt,itc jay jay Drug Allergy Active nickel Nickel Unknown Allergy Active REASON FOR VISIT At Risk Footcare, Toe Irritation Medications Medication SIG (Take, Route, Frequency, Duration) Notes Start Date End Date Status Allergy Not-Taking EpiPen 2-Cj Not-Demar ing Fosamax Not-Taking Calcium Not-Taking Vitamin D Not-Taking Alendronate Sodium 70 MG 1 tablet Orally for 30 day(s) Not-Taking LORazepam 1 MG 1 tablet at bedtime as needed Orally Once a day PRN Not-Taking Colcrys Not-Taking predniSONE Not-Takin g Humira Not-Taking Clindamycin HCl 300 MG 2 capsules Orally every 8 hrs for 10 day(s) 03/22/2021 Not-Taking predniSONE 20 MG 3 tablet Orally Once a day Not-Taking Remicade Not-Taking buPROPion HCl 100 MG 1 tablet Orally Twi ce a day for 30 day(s) Not-Taking Ibuprofen Not-Taking Aspir-81 Not-Taking Prednisone 1 tab Oral for 14 days Not-Taking Extra Depth Orthopedic Shoes (1 Pair) with Customized Heat Molded Multidensity Innersoles (3 Pair) as directed Dx: NIDDM/Polyneuropathy (E11.42), Hammertoe Foot Deformity (M20.41,M20.42), Preulcerative Skin Lesion(s) (L85.1 02/04/2019 Not-Taking Extra Depth Orthopedic Shoes (1 Pair) with Customized Heat Molded Multidensity Innersoles (3 Pair) as directed Dx: NIDDM/Polyneuropathy (E11.42), Hammertoe Foot Deformity (M20.41,M20.42), Preulcerative Skin Lesion(s) (L85.1 05/15/2020 Not-Taking Cefdinir 300 MG as directed Orally Not-Taking Cranberry Not-Taking Estradiol 0.1 MG/GM Vaginal for 90 Not-Taking Lantus Not-Taking Extra Depth Orthopedic Shoes (1 Pair) with Customized Heat Molded Multidensity Innersoles (3 Pair) as directed Dx: NIDDM/Polyneuropathy (E11.42), Hammertoe Foot Deformity (M20.41,M20.42), Preulcerative Skin Lesion(s) (L85.1 12/17/2021 Not-Taking zzzCompression Stockings 20-30mm Hg . . . for . Not-Taking Fish Oil Active HumaLOG Active Multivitamin Active Omeprazole PRN Active Extra Depth Orthopedic Shoes (1 Pair) with Customized Heat Molded Multidensity Innersoles (3 Pair) as directed Dx: IDDM/Polyneuropathy (E10.42), Hammertoe Foot Deformity (M20.41,M20.42), Preulcerative Skin Lesion(s) (L85.1) 12/01/2023 Active Vitamin C Active zzzCompression Stockings 20-30mm Hg . . . for . Active Atorvastatin Calcium 20 MG Orally Active Biotin Active Cimzia Active Social History Tobacco Use: Social History Observation Description Date Details (start date - stop date) Current Smoker NA - NA Tobacco use other than smoking: Question Answer Notes Are you an other tobacco user? No Tobacco Control (Standard) Question Answer Notes Tobacco use: Current smoker How often do you smoke cigarettes? Every day How many cigarettes a day do you smoke? 11-20 How soon after you wake up d o you smoke your first cigarette? 31-60 minutes Are you interested in quitting? Thinking about q uitting AUDIT-C (Standard) Question Answer Notes Did you have a drink containing alcohol in the p ast year? No Points 0 Interpretation Negative Vital Signs Height 5ft 2in in 08/12/2024 Weight 160 lbs 08/12/2024 BMI 29.26 kg/m2 08/12/2024 Procedures Procedure Date Ordered Date Performed Result Body Sit e 23411-IOSNYKM NAIL, 6 OR MORE 08/12/2024 N/A 18961-WMKI SKIN LESIONS, 2 TO 4 08/12/2024 N/A Encounters Encounter Location Date Provider Diagnosis [facility] [address] [place] [address] 08/12/2024 Chelsie Li Neuralgia and neuritis, unspecified M79.2 ; Type 1 diabetes mellitus with diabetic polyneuropathy E10.42 ; Tinea unguium B35.1 and Neuropathy G62.9 Assessments Encounter Date Diagnosis (ICD Code) Assessment Notes Treatment Notes Treatment Clinical Notes Section Notes 08/12/2024 Neuralgia and neuritis, unspecified (ICD-10 - M79.2) 08/12/2024 Type 1 diabetes mellitus with diabetic polyneuropathy (ICD-10 - E10.42) 08/12/2024 Tinea unguium (ICD-10 - B35.1) 08/12/2024 Neuropathy (ICD-10 - G62.9) Plan Of Treatment Pending Test Test Name Order Date 69906-RFUBVUK NAIL, 6 OR MORE 08/12/2024 [id number]-LJRN SKIN LESIONS, 2 TO 4 08/12/20 24 Next Appt Details Follow Up: prn, Reason: Provider Name:Chelsie Li , 02/21/2025 08:15:00 AM, [address] [place] [address], [phone], Procedure Notes * Category Sub-Category Detail Notes Debride Nail 6-10 Nail debridement Performance o f this nail treatment by a nonprofessional would put this patients foot and overall health at risk. Therefore, debridement to affected nail(s), as described in exam, was performed extensively to reduce/remove overall nail length, girth, thickness, subungual debris, and necrotic tissue, by manual and/or electrical means through the use of a nail nipper and/or dremel-type grinder hardboard, to a more viable healthy nail plate or bed tissue 6-10 nails in total. Silver nitrate was used for any petechial bleeding as necessary. Definitive antifungal treatment options, both pharmaceutical and surgical, have been reviewed and discussed with the patient. The patient solely prefers the use of intermittent/as needed professional debridement services for their nail condition and understands the need for additional periodic treatments to maintain effectiveness in symptomatic relief - 09583 Keratoma Treatment Parring or Cutting o f Benign Hyperkeratotic Lesion(s) (-56) 2-4 Lesions - The Benign hyperkeratotic lesions, ( _4_ ) in total, as described in exam, were pared, and/or cut utilizing a sterile 15 blade, tissue nippers, and/or power [employer] instrumentation - 01617 Progress Notes * Ana BARAJAS MDOB:[birth year] (69 yo F)Acc No.[id number]:08/12/2024 Progress Note Patient:?Ana BARAJAS M Provider:?Chelsie Li DPM :1955???Age:69 Y???Sex:Female D ate:08/12/2024 Address:[address] [place] [address] Pcp:Golria Villarreal Subjective: * Chief Complaints: * ???At Risk FootcareToe Irrit ation * HPI: ???At Risk footcare:?Pt States Last PCP Visit:?Date?05/20/2024 ???Toe pain:?Nature:?numbness.?Location:?B/L feet.?Duration:?several years.?Course:?, improved, at 60 percent, intermittent.?Aggravated by:?shoes, any pressure.?Treatments:?change in shoes-DIABETIC SHOES, have helped Voltaren gel did not help.?Pt stopped using the pump due to mechanical issues. * ROS:?General/Constitutional:?Nausea?denies.?Vomiting?denies.?Hunger Thirst?denies.?Loss appetite?denies.?Chills?denies.?Fatigue?denies.?Fever?denies.?Night Sweats?denies.?Unexplained weight loss?denies.?Unexplained weight gain?denies.?HEENTM:?Dentures?denies.?Dizziness?denies.?Glasses/contacts?denies.?Retinopathy?den ies.?Blurred/double vision?denies.?TMJ?denies.?Discharge/drainage?denies.?Implants?denies.?Sore throat?denies.?Dental implants?denies.?Hard of hearing ?denies.?Difficulty chewing/swallowing/speaking?denies.?Nose bleeds?denies.?Sore mouth?denies.?Respiratory:?On O xygen?denies.?Pneumonia/pleurisy?denies.?Bronchitis?denies.?Emphysema?denies.?Co ughing?denies.?Cough blood?denies.?Shortness of breath?denies.?Wheezing?denies.?Cardiovascular:?Pacemaker?denies.?MVP?denies.?WPW?denies.?CHF?denies.?Heart attack?denies.?Septal defect?denies.?Rapid beat?denies.?Chest pain ?denies.?Atrial Fib.?denies.?Murmur/Palpitations?denies.?Gastrointestinal:?Hemorrhoids?denies.?Stomach/Abdominal pain?denies.?Dark blood stool?denies.?Irritable bowel ?denies.?Constipation?denies.?Diarrhea?denies.?Hematology:?Swelling?denies.?Clots?denies.?Varicose Veins?denies.?Bruising?denies.?Bleeding problem?denies.?Genitourinary:?Blood urine?denies.?Frequent/Painfu/urination/bladder control?denies.?Kidney stones?denies.?Infection (UTI)?denies.?Nephropathy?denies.?sex trans dis (STD)?denies.?Prostate?denies.?Musculoskeletal:?Hammertoes?admits.?Bunions?denies.?Back Pain?denies.?Muscle Cramps/ Resting?denies.?Muscle cramps / walking?denies.?Generalized aches and pains?denies.?Weakness?denies.?Integ.:?Fritz?denies.?Scars?denies.?Corns/calluses?denies.?Ingrown nails?admits.?Painful nails?admits.?Open Sores?denies.?Rashes?denies.?Neurologic:?Difficulty sleeping?denies.?Brain disorder?denies.?Numbness?denies.?Balance t rouble?denies.?Confusion?denies.?Fainting/blackouts?denies.?Tingling?denies.?Bienvenido mors?denies.? * Medical History:? * Surgical History:?Both legs Lasser surgery & 04/2014removed galbladder 11/05/2016spline removal broken leg required surgery 07/2019bladder cancer iopsy done on leg, infection, traveled from leg to ankle- mersa right leg 05/29/24 * Hospitalization/Major Diagno stic Procedure:?TBC bladder cancer treatments-Ended 11/29/2021 2[facility] - Hospitalized for feet/Leg swelling-Left hospital because was on bed in hallway 22 hrs 11/2021[facility]- Was on Prednisone for swelling feet and legs- 2 nights 12/10/2021 * Family History:?Mother: dece ased, diagnosed with Other malignant neoplasm of unspecified site, Family history of arthritis.?Father: , diagnosed with Diabetic - NIDDM, Unspecified heart disease.? * Social History:?Tobacco Use:?Tobacco use other than smoking?Are you an other tobacco user??No ?Tobacco Control (Standard)?Tobacco use:?Current smoker ?How often do you smoke cigarettes??Every day ?How many cigarettes a day do you smoke??11-20 ?How soon after you wake up do you smoke your first cigarette??31-60 minutes ?Are you interested in quitting??Thinking about quitting ???Drugs/Alcohol:?Drugs?Have you used drugs other than those for medical reasons in the past 12 months??No ???Miscellaneous:?Caffeine: yes, frequency:, more than 4 cups per day tea. ?Children: yes, 4. ?Exercise: yes, walking, up and down stairs, yard work, house work, volunteering [employer]. ?Marital status: . 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 ???Drug/Alcohol:?AUDIT-C (Standard)?Did you have a drink containing alcohol in the past year??No ?Points?0 ?Interpretation?Negative * Medications:?TakingVitamin C zzzCompression Stockings 20-30mm Hg 1 pair closed toe- knee high . . . Atorvastatin Calcium 20 MG Tablet Orally Biotin Cimzia Fish Oil HumaLOG Multivitamin Omeprazole , Notes to Pharmacist: PRNExtra Depth Orthopedic Shoes (1 Pair) with Customized Heat Molded Multidensity Innersoles (3 Pair) as directed Dx: IDDM/Polyneuropathy (E10.42), Hammertoe Foot Deformity (M20.41,M20.42), Preulcerative Skin Lesion(s) (L85.1) Taking Vitamin C Taking zzzCompression Stockings 20-30mm Hg 1 pair closed toe- knee high . . . Taking Atorvastatin Calcium 20 MG Tablet Orally Taking Biotin Taking Cimzia Taking Fish Oil Taking HumaLOG Taking Multivitamin Taking Omeprazole , Notes to Pharmacist: PRNTaking Extra Depth Orthopedic Shoes (1 Pair) with Customized Heat Molded Multidensity Innersoles (3 Pair) as directed Dx: IDDM/Polyneuropathy (E10.42), Hammertoe Foot Deformity (M20.41,M20.42), Preulcerative Skin Lesion(s) (L85.1) Not-Taking/PRNCranberry Estradiol 0.1 MG/GM Cream Vaginal Lantus Extra Depth Orthopedic Shoes (1 Pair) with Customized Heat Molded Multidensity Innersoles (3 Pair) as directed Dx: NIDDM/Polyneuropathy (E11.42), Hammertoe Foot Deformity (M20.41,M20.42), Preulcerative Skin Lesion(s) (L85.1 zzzCompression Stockings 20-30mm Hg 1 pair closed toe- knee high . . . Aspir-81 Prednisone 1 tab Oral Extra Depth Orthopedic Shoes (1 Pair) with Customized Heat Molded Multidensity Innersoles (3 Pair) as directed Dx: NIDDM/Polyneuropathy (E11.42), Hammertoe Foot Deformity (M20.41,M20.42), Preulcerative Skin Lesion(s) (L85.1 Extra Depth Orthopedic Shoes (1 Pair) with Customized Heat Molded Multidensity Innersoles (3 Pair) as directed Dx: NIDDM/Polyneuropathy (E11.42), Hammertoe Foot Deformity (M20.41,M20.42), Preulcerative Skin Lesion(s) (L85.1 Cefdinir 300 MG Capsule as directed Orally Clindamycin HCl 300 MG Capsule 2 capsules Orally every 8 hrs predniSONE 20 MG Tablet 3 tablet Orally Once a day Remicade buPROPion HCl 100 MG Tablet 1 tablet Orally Twice a day Ibuprofen Humira Alendronate Sodium 70 MG Tablet 1 tablet Orally LORazepam 1 MG Tablet 1 tablet at bedtime as needed Orally Once a day , Notes to Pharmacist: PRNColcrys predniSONE Allergy EpiPen 2-Cj Fosamax Calcium Vitamin D Medication List reviewed and reconciled with the patientNot-Taking/PRN Cranberry Not-Taking/PRN Estradiol 0.1 MG/GM Cream Vaginal Not-Taking/PRN Lantus Not-Taking/PRN Extra Depth Orthopedic Shoes (1 Pair) with Customized Heat Molded Multidensity Innersoles (3 Pair) as directed Dx: NIDDM/Polyneuropathy (E11.42), Hammertoe Foot Deformity (M20.41,M20.42), Preulcerative Skin Lesion(s) (L85.1 Not-Taking/PRN zzzCompression Stockings 20-30mm Hg 1 pair closed toe- knee high . . . Not-Taking/PRN Aspir-81 Not-Taking/PRN Prednisone 1 tab Oral Not-Taking/PRN Extra Depth Orthopedic Shoes (1 Pair) with Customized Heat Molded Multidensity Innersoles (3 Pair) as directed Dx: NIDDM/Polyneuropathy (E11.42), Hammertoe Foot Deformity (M20.41,M20.42), Preulcerative Skin Lesion(s) (L85.1 Not-Taking/PRN Extra Depth Orthopedic Shoes (1 Pair) with Customized Heat Molded Multidensity Innersoles (3 Pair) as directed Dx: NIDDM/Polyneuropathy (E11.42), Hammertoe Foot Deformity (M20.41,M20.42), Preulcerative Skin Lesion(s) (L85.1 Not-Taking/PRN Cefdinir 300 MG Capsule as directed Orally Not-Taking/PRN Clindamycin HCl 300 MG Capsule 2 capsules Orally every 8 hrs Not-Taking/PRN predniSONE 20 MG Tablet 3 tablet Orally Once a day Not-Taking/PRN Remicade Not-Taking/PRN buPROPion HCl 100 MG Tablet 1 tablet Orally Twice a day Not-Taking/PRN Ibuprofen Not-Taking/PRN Humira Not-Taking/PRN Alendronate Sodium 70 MG Tablet 1 tablet Orally Not-Taking/PRN LORazepam 1 MG Tablet 1 tablet at bedtime as needed Orally Once a day , Notes to Pharmacist: PRNNot-Taking/PRN Colcrys Not-Taking/PRN predniSONE Not-Taking/PRN Allergy Not-Taking/PRN EpiPen 2-Cj Not-Taking/PRN Fosamax Not-Taking/PRN Calcium Not-Taking/PRN Vitamin D Medication List reviewed and reconciled with the patient * Allergies:?ImuranRemicade: r ashNickelEtanercept: hives,welt,itchingDexamethasone: blood pressure goes upyes[Allergies Verified] Objective: * Vitals:?Ht: 5ft 2in, Wt:160, BMI:29.26, Shoe size: 9, BS: 105, Ht-cm: 157.48 cm, Wt-k.57 kg. * ???Past Orders: ???Lab:HEMOGLOBIN A1C (GLYCO HEMOGLOBIN) (Order Date - 04/22/2024) (Collection Date & Time - 04/22/2024 08:45 AM) ? Value Reference Range ?TOTAL HEMOGLOBIN (HGBA1C) 7.1 * Examination: ???Ophthalmology Referral: ?DIABETES EYE EXAM?Procedure Performed:?Yes ?Date of Exam Performed?08/22/2023 ?Diabetic Retinopathy Screening:?Yes ?Findings of Diabetic Eye Exam:?no retinopathy?General Examination: ?GENERAL APPEARANCE:?Reveals a pleasant, alert, well nourished, well- developed, well hydrated individual, who demonstrates proper attention to hygiene/body habitus, and is in no acute distress, Pt serves as own historian for office visit today.?ORIENTED:?person, place, and time.?FOOT EXAM:?Lower Extremity Neurological Exam performed:?Yes ?Footwear Evaluation?Footwear Evaluation performed:?Yes?Neurological: ?SENSORY:?Neurological exam demonstrates, reduced sharp/dull pin prick discrimination , reduced vibration sensation, reduced light touch sensation, 5.07 monofilament test performed at plantar aspects of 5 varied sites per foot shows sensation, reduced, at absent , B/L, Pt relates, increased anesthesia, tingling burning right midfoot.?TINEL'S COMPRESSION:? Negative, Saphenous nerve distribution, , Medial dorsal cutaneous nerve distribution, Intermediate dorsal cutaneous nerve distribution right.?Vascular: ?DP PULSES(B):?2/4, B/L.?PT PULSES(B):?1/4, B/L.?VARICOSITIES:?present, moderate, nonpainful, B/L.?Dermatologic: ?SKIN FINDINGS:?Skin exam reveals keratotic lesion(s) located at,SUB MTH (s),2,3,Right , plantar?Heel(s) , B/L ,?.?Nails: ?NAILS are:?elongated,overgrown,dystrophic,greater than 3mm thick,discolored and friable with crumbly malodorous subungual debris, , TA, T2, T3,T5, T4, T6, T8, T9, .?Orthopedic: ?DIGITAL DEFORMITIES:?Digital contracture, PIPJ, 2-5 B/L, incompl-reducible to push-up test, no over, nor underlapping, with no further evidence of shoe producing skin irritation.?FOOTWEAR:?good condition.? Assessment: * Assessment: 1.?Neuralgia and neuritis, u nspecified - M79.2???2.?Type 1 diabetes mellitus with diabetic polyneuropathy - E10.42 (Primary)???3.?Tinea unguium - B35.1???4.?Neuropathy - G62.9??? Plan: * Treatment: 2.?Tinea unguium?Procedure: 33609-ONPUWUC NAIL, 6 OR MORE * Procedures:?Debride Nail 6-10:?Nail debridement?Performance of this nail treatment by a nonprofessional would put this patients foot and overall health at risk. Therefore, debridement to affected nail(s), as described in exam, was performed extensively to reduce/remove overall nail length, girth, thickness, subungual debris, and necrotic tissue, by manual and/or electrical means through the use of a nail nipper and/or dremel-type grinder hardboard, to a more viable healthy nail plate or bed tissue 6-10 nails in total. Silver nitrate was used for any petechial bleeding as necessary. Definitive antifungal treatment options, both pharmaceutical and surgical, have been reviewed and discussed with the patient. The patient solely prefers the use of intermittent/as needed professional debridement services for their nail condition and understands the need for additional periodic treatments to maintain effectiveness in symptomatic relief - 76065.?Keratoma Treatment:?Parring or Cutting of Benign Hyperkeratotic Lesion(s)?(-56) 2-4 Lesions - The Benign hyperkeratotic lesions, ( _4_ ) in total, as described in exam, were pared, and/or cut utilizing a sterile 15 blade, tissue nippers, and/or power dremel instrumentation - 17055.? * Procedure Codes:?94836 DEBRI DE NAIL, 6 OR MORE, Modifiers: XS 22683 TRIM SKIN LESIONS, 2 TO 4, Modifiers: XS * Preventive Medicine:? ??Counseling:?Discussion:?-12: Office or other outpatient visit for the evaluation and management of an established patient, which required a medically appropriate history and/or examination and STRAIGHTFORWARD level of MEDICAL DECISION MAKING, 1 SELF-LIMITED OR MINOR PROBLEM, MINIMAL- NO AMOUNT/COMPLEXITY OF DATA TO BE REVIEWED/ANALYZED, AND MINIMAL RISK OF COMPLICATION/MORBIDITY. The visit on the day of the encounter encompassed interpreting the data and educating the patient as to the nature of their condition, treatment options available according to their individual PMH, meds, allergies, and overall health/living conditions, as well as any potential risks or complications that may occur from a failure to adhere to, and participate in, the recommended course of therapy. The discussion included a complete verbal, and/or written explanation of the examination results, any x-rays taken, the proposed diagnosis, and outline of the treatment plan. A schedule for future care needs was also explained. The patient verbalized an understanding of the instructions at this time and agreed to be an active participant in their treatment. If the patient should think of any questions or concerns after the visit, I have encouraged the patient to call the office.?F/u Visit:?The Pt. was counseled on the remaining treatment options and importance of adherence to recomm; Discussed possible topical pain medication from a compound pharmacy. Pt defers at this time and wishes to continue with present plan.? * Follow Up:?prn * Images: * Sign off status: Completed true * Provider:?Chelsie Li DPM Date:?2023 Generated for Aquiles lomas/Lewis/Antonioitting on:?01/12/2025 10:17 AM EDT History and Physical Notes * HPI (History of Present Illness) Category Sub-Category Detail Notes Category Not es Toe pain Nature: numbness Pt stopped usin g the pump due to mechanical issues Location: B/L feet Duration: several years Course: , improved, at 60 pe rcent, intermittent Aggravated by: shoes, any pressure Treatments: change in shoes-DIAB ETIC SHOES, have helped Voltaren gel did not help At Risk footcare Pt States Last PCP Visit: Date: 4 Examination Category Sub-Category Detail Notes Category Not es Ingrown Nail INSPECTION: Neurological SENSORY: Neurological exa m demonstrates, reduced sharp/dull pin prick discrimination , reduced vibration sensation, reduced light touch sensation, 5.07 monofilament test performed at plantar aspects of 5 varied sites per foot shows sensation, reduced, at absent , B/L, Pt relates, increased anesthesia, tingling burning right midfoot TINEL'S COMPRESSION: Negative, Saphenous nerve distribution, , Medial dorsal cutaneous nerve distribution, Intermediate dorsal cutaneous nerve distribution right Dermatologic SKIN FINDINGS: Skin exam reveal s keratotic lesion(s) located at,SUB MTH (s),2,3,Right , plantar Heel(s) , B/L , Orthopedic FOOTWEAR EVALUATION: good condition DIGITAL DEFORMITIES: Digital contracture , PIPJ, 2-5 B/L, incompl-reducible to push-up test, no over, nor underlapping, with no further evidence of shoe producing skin irritation General Examination GENERAL APPEARANCE: Reveals a pleasant, alert, well nourished, well-developed, well hydrated individual, who demonstrates proper attention to hygiene/body habitus, and is in no acute distress, Pt serves as own historian for office visit today FOOT EXAM: Lower Extremity Neurological Exa m performed:: Yes ORIENTED: person, place, and t mitchell Footwear Evaluation Footwear Evaluation performe d:: Yes Ophthalmology Referral DIABETES EYE EXAM Procedure Perform ed:: Yes ?Date of Exam Performed: 08/22/2023 Diabetic Retinopathy Screening:: Yes Findings of Diabetic Eye Exam:: no retin opathy Vascular DP PULSES (B): 2/4, B/L PT PULSES (B): 1/4, B/L VARICOSITIES: present, moderate, n onpainful, B/L ROMAINE'S SIGN: PALPABLE CORDS: COMPRESSION STOCKINGS: Nails NAILS are: elongated,overgr own,dystrophic,greater than 3mm thick,discolored and friable with crumbly malodorous subungual debris, , TA, T2, T3,T5, T4, T6, T8, T9,
--- OUTSIDE RECORDS SUMMARY | 2025-01-12 10:17 | XMS_ITS ---
Author Organization [facility] [place] Address [address] 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 Name Role Phone Gloria Villarreal Primary Care Provider Unavailabl e Black, Chelsie Unavailable [phone] Allergies Allergen (clinical drug ingredient) Drug/Non Drug Allergy documented on EMR Reaction Allergy Type Onset Date Status amoxicillin Amoxicillin swelling, hives welts,itching Drug Allergy Active azathioprine Imuran Unknown Drug Allergy Acti ve infliximab Remicade rash Drug Allergy Active dexamethasone Dexamethasone blood pressure goes up Drug Allergy Active etanercept Etanercept hives,welt,itc jay jay Drug Allergy Active nickel Nickel Unknown Allergy Active Penicillin hives ,welts, swelling, itching Drug Allergy Active REASON FOR VISIT At Risk Footcare, Toe Irritation Medications Medication SIG (Take, Route, Frequency, Duration) Notes Start Date End Date Status Remicade Not-Taking Ibuprofen Not-Taking buPROPion HCl 100 MG 1 tablet Orally Twi ce a day for 30 day(s) Not-Taking Humira Not-Taking Alendronate Sodium 70 MG 1 tablet Orally for 30 day(s) Not-Taking predniSONE 20 MG 3 tablet Orally Once a day Not-Taking Extra Depth Orthopedic Shoes (1 Pair) with Customized Heat Molded Multidensity Innersoles (3 Pair) as directed Dx: NIDDM/Polyneuropathy (E11.42), Hammertoe Foot Deformity (M20.41,M20.42), Preulcerative Skin Lesion(s) (L85.1 05/15/2020 Not-Taking Extra Depth Orthopedic Shoes (1 Pair) with Customized Heat Molded Multidensity Innersoles (3 Pair) as directed Dx: NIDDM/Polyneuropathy (E11.42), Hammertoe Foot Deformity (M20.41,M20.42), Preulcerative Skin Lesion(s) (L85.1 02/04/2019 Not-Taking Clindamycin HCl 300 MG 2 capsules Orally every 8 hrs for 10 day(s) 03/22/2021 Not-Taking Cefdinir 300 MG as directed Orally Not-Taking Estradiol 0.1 MG/GM Vaginal for 90 Active zzzCompression Stockings 20-30mm Hg . . . for . Not-Taking Prednisone 1 tab Oral for 14 days Not-Taking Aspir-81 Not-Taking Extra Depth Orthopedic Shoes (1 Pair) with Customized Heat Molded Multidensity Innersoles (3 Pair) as directed Dx: IDDM/Polyneuropathy (E10.42), Hammertoe Foot Deformity (M20.41,M20.42), Preulcerative Skin Lesion(s) (L85.1) 12/01/2023 Active Extra Depth Orthopedic Shoes (1 Pair) with Customized Heat Molded Multidensity Innersoles (3 Pair) as directed Dx: NIDDM/Polyneuropathy (E11.42), Hammertoe Foot Deformity (M20.41,M20.42), Preulcerative Skin Lesion(s) (L85.1 12/17/2021 Not-Taking Omeprazole PRN Active HumaLOG Active Multivitamin Active Lantus Not-Taking zzzCompression Stockings 20-30mm Hg . . . for . Active Fish Oil Active Cimzia Active Biotin Active Atorvastatin Calcium 20 MG Orally Active Cranberry Active Calcium Not-Taking Fosamax Not-Taking Vitamin C Active Vitamin D Not-Taking predniSONE Not-Takin g Colcrys Not-Taking EpiPen 2-Cj Not-Demar ing Allergy Not-Taking LORazepam 1 MG 1 tablet at bedtime as needed Orally Once a day PRN Not-Taking Social History Tobacco Use: Social History Observation Description Date Details (start date - stop date) Current Smoker NA - NA Tobacco Use/Smoking Question Answer Notes Are you a: current smoker How often do you smoke cigarettes? every day How many cigarettes a day do you smoke? 6-10 Additional Findings: Tobacco User Light cigarett e smoker ((1-9 cigs/day) Alcohol Screen Question Answer Notes Did you have a drink containing alcohol in the p ast year? No Points 0 Interpretation Negative Tobacco use other than smoking: Question Answer Notes Are you an other tobacco user? No Problems Problem Type SNOMED Code ICD Code Onset Dates Problem Status W/U Status Risk Notes Problem Neuropathy (581192782) Neuropathy (G62.9) Active confirmed Vital Signs Height 5ft 2in in 05/07/2024 Weight 160 lbs 05/07/2024 BMI 29.26 kg/m2 05/07/2024 Procedures Procedure Date Ordered Date Performed Result Body Sit e 31580-VNQSGPE NAIL, 6 OR MORE 05/07/2024 N/A 83228-PQVV SKIN LESIONS, 2 TO 4 05/07/2024 N/A Encounters Encounter Location Date Provider Diagnosis [facility] [address] 05/07/2024 Chelsie Li Tinea unguium B35.1 ; Neuralgia and neuritis, unspecified M79.2 ; Type 1 diabetes mellitus with diabetic polyneuropathy E10.42 and Neuropathy G62.9 Assessments Encounter Date Diagnosis (ICD Code) Assessment Notes Treatment Notes Treatment Clinical Notes Section Notes 05/07/2024 Tinea unguium (ICD-10 - B35.1) 05/07/2024 Neuralgia and neuritis, unspecified (ICD-10 - M79.2) 05/07/2024 Type 1 diabetes mellitus with diabetic polyneuropathy (ICD-10 - E10.42) 05/07/2024 Neuropathy (ICD-10 - G62.9) 05/07/2024 Other Plan Of Treatment Pending Test Test Name Order Date 30002-XWTDKPV NAIL, 6 OR MORE 05/07/2024 99460-JWKZ SKIN LESIONS, 2 TO 4 05/07/20 24 Next Appt Details Follow Up: prn, Reason: Provider Name:Cehlsie Li , 02/21/2025 08:15:00 AM, [address] [facility], [place], [address], Procedure Notes * Category Sub-Category Detail Notes Debride Nail 6-10 Nail debridement Nail debridem ent performed extensively to reduce/remove overall nail length and girth, subungual debris, and necrotic tissue, by manual and electrical means with use of a nail nipper and/or dremel, to more viable healthy nail plate or bed tissue 6-10. Silver nitrate used for any petechial bleeding as necessary. Patient chooses, no pharmaceutical tx (15590) Keratoma Treatment Parring or Cutting o f Benign Hyperkeratotic Lesion(s) 70192 (2-4 Lesions) - The Benign hyperkeratotic lesions, as described above were pared, and/or cut utilizing a sterile #15 blade, tissue nippers, and/or dremel Progress Notes * Ana BARAJAS MDOB:[birth year] (69 yo F)Acc No.[id number]:05/07/2024 Progress Note Patient:?Ana Barajas M Provider:?Chelsie Li DPM :1955???Age:69 Y???Sex:Female D ate:05/07/2024 Address:[address] [place] [address] Pcp:Gloria Villarreal Subjective: * Chief Complaints: * ???At Risk FootcareToe Irrit ation * HPI: ???At Risk footcare:?Pt States Last PCP Visit:?Date?02/11/2024 ???Toe pain:?Nature:?numbness.?Location:?B/L feet.?Duration:?several years.?Course:?worse.?Aggravated by:?shoes, any pressure.?Treatments:?change in shoes.? Recent Pump fpr diabetes. * ROS:?General/Constitutional:?Nausea?denies.?Vomiting?denies.?Hunger Thirst?denies.?Loss appetite?denies.?Chills?denies.?Fatigue?denies.?Fever?denies.?Night Sweats?denies.?Unexplained weight loss?denies.?Unexplained weight gain?denies.?HEENTM:?Dentures?denies.?Dizziness?denies.?Glasses/contacts?denies.?Retinopathy?de nies.?Blurred/double vision?denies.?TMJ?denies.?Discharge/drainage?denies.?Implants?denies.?Sore throat?denies.?Dental implants?denies.?Hard of hearing ?denies.?Difficulty chewing/swallowing/speaking?denies.?Nose bleeds?denies.?Sore mouth?denies.?Respiratory:?On Oxygen?denies.?Pneumonia/pleurisy?denies.?Bronchitis?denies.?Emphysema?denies.?C oughing?denies.?Cough blood?denies.?Shortness of breath?denies.?Wheezing?denies.?Cardiovascular:?Pacemaker?denies.?MVP?denies.?WPW?denies.?CHF?denies.?Heart attack?denies.?Septal defect?denies.?Rapid beat?denies.?Chest pain ?denies.?Atrial Fib.?denies.?Murmur/Palpitations?denies.?Gastrointestinal:?Hemorrhoids?denies.?Stomach/Abdominal pain?denies.?Dark blood stool?denies.?Irritable bowel ?denies.?Constipation?denies.?Diarrhea?denies.?Hematology:?Swelling?denies.?Clots?denies.?Varicose Veins?denies.?Bruising?denies.?Bleeding problem?denies.?Genitourinary:?Blood urine?denies.?Frequent/Painfu/urination/bladder control?denies.?Kidney stones?denies.?Infection (UTI)?denies.?Nephropathy?denies.?sex trans dis (STD)?denies.?Prostate?denies.?Musculoskeletal:?Hammertoes?admits.?Bunions?denies.?Back Pain?denies.?Muscle Cramps/ Resting?denies.?Muscle cramps / walking?denies.?Generalized aches and pains?denies.?Weakness?denies.?Integ.:?Rfitz?denies.?Scars?denies.?Corns/calluses?denies.?Ingrown nails?admits.?Painful nails?admits.?Open Sores?denies.?Rashes?denies.?Neurologic:?Difficulty sleeping?denies.?Brain disorder?denies.?Numbness?denies.?Balance trouble?denies.?Confusion?denies.?Fainting/blackouts?denies.?Tingling?denies.?Tr emors?denies.? * Medical History:? * Surgical History:?Both legs Lasser surgery & 04/2014removed galbladder 11/05/2016spline removal broken leg required surgery 07/2019bladder cancer 08/2021 * Hospitalization/Major Diagno stic Procedure:?TBC bladder cancer treatments-Ended 11/29/2021 10/25/20[facility] - Hospitalized for feet/Leg swelling-Left hospital because was on bed in hallway 22 hrs 11/2021[facility]- Was on Prednisone for swelling feet and legs- 2 nights 12/10/2021 * Family History:?Mother: dece ased, diagnosed with Family history of arthritis, Other malignant neoplasm of unspecified site.?Father: , diagnosed with Diabetic - NIDDM, Unspecified heart disease.? * Social History:?Tobacco Use:?Tobacco Use/Smoking?Are you a:?current smoker ?How often do you smoke cigarettes??every day ?How many cigarettes a day do you smoke??6-10 ?Additional Findings: Tobacco User?Light cigarette smoker ((1-9 cigs/day) ?Tobacco use other than smoking?Are you an other tobacco user??No ???Drugs/Alcohol:?Drugs?Have you used drugs other than those for medical reasons in the past 12 months??No ?Alcohol Screen?Did you have a drink containing alcohol in the past year??No ?Points?0 ?Interpretation?Negative ???Miscellaneous:?Caffeine: yes, frequency:, more than 4 cups per day tea. ?Children: yes, 4. ?Exercise: yes, walking, up and down stairs, yard work, house work, volunteering [employer]. ?Marital status: . ?Occupation: Retired. * Medications:?TakingCranberry Vitamin C zzzCompression Stockings 20-30mm Hg 1 pair closed toe- knee high . . .Atorvastatin Calcium 20 MG Tablet Orally Biotin Cimzia Fish Oil HumaLOG Multivitamin Omeprazole , Notes: PRNEstradiol 0.1 MG/GM Cream Vaginal Extra Depth Orthopedic Shoes (1 Pair) with Customized Heat Molded Multidensity Innersoles (3 Pair) as directed Dx: IDDM/Polyneuropathy (E10.42), Hammertoe Foot Deformity (M20.41,M20.42), Preulcerative Skin Lesion(s) (L85.1)Taking Cranberry Taking Vitamin C Taking zzzCompression Stockings 20-30mm Hg 1 pair closed toe- knee high . . .Taking Atorvastatin Calcium 20 MG Tablet Orally Taking Biotin Taking Cimzia Taking Fish Oil Taking HumaLOG Taking Multivitamin Taking Omeprazole , Notes: PRNTaking Estradiol 0.1 MG/GM Cream Vaginal Taking Extra Depth Orthopedic Shoes (1 Pair) with Customized Heat Molded Multidensity Innersoles (3 Pair) as directed Dx: IDDM/Polyneuropathy (E10.42), Hammertoe Foot Deformity (M20.41,M20.42), Preulcerative Skin Lesion(s) (L85.1)Not-Taking/PRNLantus Extra Depth Orthopedic Shoes (1 Pair) with Customized Heat Molded Multidensity Innersoles (3 Pair) as directed Dx: NIDDM/Polyneuropathy (E11.42), Hammertoe Foot Deformity (M20.41,M20.42), Preulcerative Skin Lesion(s) (L85.1zzzCompression Stockings 20-30mm Hg 1 pair closed toe- knee high . . .Aspir-81 Prednisone 1 tab Oral Extra Depth Orthopedic Shoes (1 Pair) with Customized Heat Molded Multidensity Innersoles (3 Pair) as directed Dx: NIDDM/Polyneuropathy (E11.42), Hammertoe Foot Deformity (M20.41,M20.42), Preulcerative Skin Lesion(s) (L85.1Extra Depth Orthopedic Shoes (1 Pair) with Customized Heat Molded Multidensity Innersoles (3 Pair) as directed Dx: NIDDM/Polyneuropathy (E11.42), Hammertoe Foot Deformity (M20.41,M20.42), Preulcerative Skin Lesion(s) (L85.1Cefdinir 300 MG Capsule as directed Orally Clindamycin HCl 300 MG Capsule 2 capsules Orally every 8 hrspredniSONE 20 MG Tablet 3 tablet Orally Once a dayRemicade buPROPion HCl 100 MG Tablet 1 tablet Orally Twice a dayIbuprofen Humira Alendronate Sodium 70 MG Tablet 1 tablet Orally LORazepam 1 MG Tablet 1 tablet at bedtime as needed Orally Once a day, Notes: PRNColcrys predniSONE Allergy EpiPen 2-Cj Fosamax Calcium Vitamin D Medication List reviewed and reconciled with the patientNot-Taking/PRN Lantus Not-Taking/PRN Extra Depth Orthopedic Shoes (1 Pair) with Customized Heat Molded Multidensity Innersoles (3 Pair) as directed Dx: NIDDM/Polyneuropathy (E11.42), Hammertoe Foot Deformity (M20.41,M20.42), Preulcerative Skin Lesion(s) (L85.1Not-Taking/PRN zzzCompression Stockings 20-30mm Hg 1 pair closed toe- knee high . . .Not-Taking/PRN Aspir-81 Not-Taking/PRN Prednisone 1 tab Oral Not-Taking/PRN Extra Depth Orthopedic Shoes (1 Pair) with Customized Heat Molded Multidensity Innersoles (3 Pair) as directed Dx: NIDDM/Polyneuropathy (E11.42), Hammertoe Foot Deformity (M20.41,M20.42), Preulcerative Skin Lesion(s) (L85.1Not-Taking/PRN Extra Depth Orthopedic Shoes (1 Pair) with Customized Heat Molded Multidensity Innersoles (3 Pair) as directed Dx: NIDDM/Polyneuropathy (E11.42), Hammertoe Foot Deformity (M20.41,M20.42), Preulcerative Skin Lesion(s) (L85.1Not-Taking/PRN Cefdinir 300 MG Capsule as directed Orally Not-Taking/PRN Clindamycin HCl 300 MG Capsule 2 capsules Orally every 8 hrsNot-Taking/PRN predniSONE 20 MG Tablet 3 tablet Orally Once a dayNot- Taking/PRN Remicade Not-Taking/PRN buPROPion HCl 100 MG Tablet 1 tablet Orally Twice a dayNot-Taking/PRN Ibuprofen Not-Taking/PRN Humira Not-Taking/PRN Alendronate Sodium 70 MG Tablet 1 tablet Orally Not-Taking/PRN LORazepam 1 MG Tablet 1 tablet at bedtime as needed Orally Once a day, Notes: PRNNot-Taking/PRN Colcrys Not-Taking/PRN predniSONE Not-Taking/PRN Allergy Not-Taking/PRN EpiPen 2-Cj Not-Taking/PRN Fosamax Not-Taking/PRN Calcium Not-Taking/PRN Vitamin D Medication List reviewed and reconciled with the patient * Allergies:?Amoxicillin: swel ling, hives welts,itchingImuranRemicade: rashNickelEtanercept: hives,welt,itchingDexamethasone: blood pressure goes upPenicillin: hives ,welts, swelling, itchingyes[Allergies Verified] Objective: * Vitals:?Ht: 5ft 2in, Wt:160, BMI:29.26, Shoe size: 9, BS: 97, Ht-cm: 157.48 cm, Wt-k.57 kg. * ???Past Orders: ???Lab:HEMOGLOBIN A1C (GLYCO HEMOGLOBIN) (Order Date - 12/05/2023) (Collection Date - 12/05/2023) ? Value Reference Range ?HEMOGLOBIN A1C (HH) 8.8 * Examination: ???Ophthalmology Referral: ?DIABETES EYE EXAM?Diabetic Retinopathy Screening:?Yes ?Findings of Diabetic Eye Exam:?no [...] Intermediate dorsal cutaneous nerve distribution right.?Vascular: ?DP PULSES:?2/4, B/L.?PT PULSES:?1/4, B/L.?VARICOSITIES:?present, moderate, nonpainful, B/L.?Dermatologic: ?SKIN FINDINGS:?Skin exam reveals keratotic lesion(s) located at,SUB MTH (s),2,3,Right , Heel(s) , B/L ,?.?Nails: ?NAILS are:?elongated,overgrown,dystrophic,greater than 3mm thick,discolored and friable with crumbly malodorous subungual debris, ,?T2, T3, T4,?T6, T8, T9, .?Ingrown Nail: ?INSPECTION:?Reveals nail incurvation, pain on palpation, groove hypertrophy , groove ischemia , Lateral nail border , TA , T5.?Orthopedic: ?DIGITAL DEFORMITIES:?Digital contracture, PIPJ, 2-5 B/L, incompl-reducible to push-up test, no over, nor underlapping, with evidence of shoe producing skin irritation.?FOOTWEAR:?worn, non-supportive, shoe gear properties exacerbate patient's foot/toe deformity , shoe gear properties exacerbate patients foot/toe deformity.? Assessment: * Assessment: 1.?Tinea unguium - B35.1?2.? Neuralgia and neuritis, unspecified - M79.2 (Primary)?3.?Type 1 diabetes mellitus with diabetic polyneuropathy - E10.42?4.?Neuropathy - G62.9? Plan: * Treatment: 2.?Neuropathy?Procedure: [id number] SKIN LESIONS, 2 TO 4 * Procedures:?Debride Nail 6-10:?Nail debridement?Nail debridement performed extensively to reduce/remove overall nail length and girth, subungual debris, and necrotic tissue, by manual and electrical means with use of a nail nipper and/or dremel, to more viable healthy nail plate or bed tissue 6-10. Silver nitrate used for any petechial bleeding as necessary. Patient chooses, no pharmaceutical tx (90162).?Keratoma Treatment:?Parring or Cutting of Benign Hyperkeratotic Lesion(s)?86816 (2-4 Lesions) - The Benign hyperkeratotic lesions, as described above were pared, and/or cut utilizing a sterile #15 blade, tissue nippers, and/or dremel.? * Procedure Codes:?46726 DEBRI DE NAIL, 6 OR MORE, Modifiers: XS 85921 TRIM SKIN LESIONS, 2 TO 4, Modifiers: XS * Preventive Medicine:? ??Counseling:?Discussion:?-13: Office or other outpatient visit for the evaluation and management of an established patient, which required a medically appropriate history and/or examination and LOW level of DECISION MAKING for: 1 STABLE ACUTE UNCOMPLICATED PROBLEM, 2 OR MORE MINOR PROBLEMS, OR 1 STABLE CHRONIC PROBLEM, THAT POSE(S) A LOW RISK FOR MORBIDITY/MORTALITY. The visit on the day of the [...] have encouraged the patient to call the office.?Neuritis/Neuropathy:?The patient was counseled on the diagnosis, possible etiologies (including mechanical stress, injury, entrapment, chemotherapy, diabetes, vertebral disk herniation if hx), treatment options, and importance for adherence to recommendations in order to address the patients Neuritis/Neuropathy. The advantages and disadvantages re: Accomidative mechanical support/offloading, Topical vs PO analgesics including aspercream/Voltaren gel/Lidoderm patches/Neurontin/Lyrica along with their potential side effects were discussed with the patient to their satisfaction. Also discussed the use of therapeutic injectable cortisone if needed. Surgical treatment, if considered an option, was discussed as well. If surgery is warranted, we discussed the potential successful outcomes as well as the possible complications such as failure, painful scar, permanent tingling/numbness/neuralgea/or intractable pain. Patient questions re: medication use, dosage, and possible side effects and drug interactions were reviewed and the answers to each understood. If the condition worsens, the patient was instructed to contact the office for an appointment. The patient verbally confirmed a full understanding of the above, tight glycemic control, Recommened Alpha Lipoic Acid 600mg Daily, Recommended Topical analgesics including aspercream/Voltaren gel/Lidoderm patches.? * Follow Up:?prn * Images: * Sign off status: Completed true * Provider:?Chelsie Li DPM Date:?2023 Generated for Aquiles lomas/Lewis/Martin on:?01/12/2025 10:17 AM EDT History and Physical Notes * HPI (History of Present Illness) Category Sub-Category Detail Notes Category Not es Toe pain Nature: numbness Recent Pump fpr diabetes Location: B/L feet Duration: several years Course: worse Aggravated by: shoes, any pressure Treatments: change in shoes At Risk footcare Pt States Last PCP Visit: Date: 4 Examination Category Sub-Category Detail Notes Category Not es Ingrown Nail INSPECTION: Reveals nail inc urvation, pain on palpation, groove hypertrophy , groove ischemia , Lateral nail border , TA , T5 Neurological SENSORY: Neurological exa m demonstrates, reduced [...] keratotic lesion(s) located at,SUB MTH (s),2,3,Right , Heel(s) , B/L , Orthopedic FOOTWEAR EVALUATION: worn, non-s upportive, shoe gear properties exacerbate patient's foot/toe deformity , shoe gear properties exacerbate patients foot/toe deformity DIGITAL DEFORMITIES: Digital contracture , PIPJ, 2-5 B/L, incompl-reducible to push-up test, no over, nor underlapping, with evidence of shoe producing skin irritation General [...] d:: Yes Ophthalmology Referral DIABETES EYE EXAM Diabetic Retinopa thy Screening:: Yes Findings of Diabetic Eye Exam:: no retin opathy Vascular DP PULSES (B): 2/4, B/L PT PULSES (B): 1/4, B/L VARICOSITIES: present, moderate, n onpainful, B/L ROMAINE'S SIGN: PALPABLE CORDS: COMPRESSION STOCKINGS: Nails NAILS are: elongated,overgr own,dystrophic,greater than 3mm thick,discolored and friable with crumbly malodorous subungual debris, , T2, T3, T4, T6, T8, T9,
--- OUTSIDE RECORDS SUMMARY | 2025-01-12 10:18 | XMS_ITS ---
Author Organization [facility] [place] Address [address] [facility] [place] [address] Care Team Providers Care Oleo Hasher And Renderer Name Role Phone Gloria Villarreal Primary Care Provider Unavailabl e Black, Chelsie Unavailable [phone] Allergies Allergen (clinical drug ingredient) Drug/Non Drug Allergy documented on EMR Reaction Allergy Type Onset Date Status azathioprine Imuran Unknown Drug Allergy Acti ve infliximab Remicade rash Drug Allergy Active dexamethasone Dexamethasone blood pressure goes up Drug Allergy Active etanercept Etanercept hives,welt,itc jay jay Drug Allergy Active nickel Nickel Unknown Allergy Active REASON FOR VISIT At Risk Footcare, Ingrown Nail, Skin problem(s) Medications Medication SIG (Take, Route, Frequency, Duration) Notes Start Date End Date Status Fish Oil Active Cimzia Active Biotin Active Atorvastatin Calcium 20 MG Orally Active zzzCompression Stockings 20-30mm Hg . . . for . Active Vitamin C Active Calcium Not-Taking Calcium Active Ammonium Lactate 12 % 1 application Externally to affected areas of dry skin to feet except for between the toes Twice a day for 30 days Active Vitamin D Not-Taking Fosamax Not-Taking EpiPen 2-Cj Not-Demar ing Allergy Not-Taking predniSONE Not-Takin g Colcrys Not-Taking LORazepam 1 MG 1 tablet at bedtime as needed Orally Once a day PRN Not-Taking Alendronate Sodium 70 MG 1 tablet Orally for 30 day(s) Not-Taking Humira Not-Taking Ibuprofen Not-Taking buPROPion HCl 100 MG 1 tablet Orally Twi ce a day for 30 day(s) Not-Taking Remicade Not-Taking predniSONE 20 MG 3 tablet Orally Once a day Not-Taking Clindamycin HCl 300 MG 2 capsules Orally every 8 hrs for 10 day(s) 03/22/2021 Not-Taking Cefdinir 300 MG as directed Orally Not-Taking Extra Depth Orthopedic Shoes (1 Pair) with Customized Heat Molded Multidensity Innersoles (3 Pair) as directed Dx: NIDDM/Polyneuropathy (E11.42), Hammertoe Foot Deformity (M20.41,M20.42), Preulcerative Skin Lesion(s) (L85.1 05/15/2020 Not-Taking Extra Depth Orthopedic Shoes (1 Pair) with Customized Heat Molded Multidensity Innersoles (3 Pair) as directed Dx: NIDDM/Polyneuropathy (E11.42), Hammertoe Foot Deformity (M20.41,M20.42), Preulcerative Skin Lesion(s) (L85.1 02/04/2019 Not-Taking Prednisone 1 tab Oral for 14 days Not-Taking Aspir-81 Not-Taking zzzCompression Stockings 20-30mm Hg . . . for . Not-Taking Extra Depth Orthopedic Shoes (1 Pair) with Customized Heat Molded Multidensity Innersoles (3 Pair) as directed Dx: NIDDM/Polyneuropathy (E11.42), Hammertoe Foot Deformity (M20.41,M20.42), Preulcerative Skin Lesion(s) (L85.1 12/17/2021 Not-Taking Estradiol 0.1 MG/GM Vaginal for 90 Not-Taking Cranberry Not-Taking Extra Depth Orthopedic Shoes (1 Pair) with Customized Heat Molded Multidensity Innersoles (3 Pair) as directed Dx: IDDM/Polyneuropathy (E10.42), Hammertoe Foot Deformity (M20.41,M20.42), Preulcerative Skin Lesion(s) (L85.1) 12/01/2023 Active Omeprazole PRN Active Lantus Not-Taking Multivitamin Active HumaLOG Active Social History Tobacco Use: Social History Observation Description Date Details (start date - stop date) Current Smoker 10/25/1991 - NA Tobacco use other than smoking: Question Answer Notes Are you an other tobacco user? No Tobacco Control (Standard) Question Answer Notes Tobacco use: Current smoker When did you start smoking? 10/25/1991 How often do you smoke cigarettes? Every day How many cigarettes a day do you smoke? 11-20 How soon after you wake up d o you smoke your first cigarette? 31-60 minutes Are you interested in quitting? Thinking about q uitting Additional Findings: Tobacco user Modera te cigarette smoker (10-19 cigs/day) AUDIT-C (Standard) Question Answer Notes Did you have a drink containing alcohol in the p ast year? No Points 0 Interpretation Negative Vital Signs Height 5ft 2in in 11/15/2024 Weight 160 lbs 11/15/2024 BMI 29.26 kg/m2 11/15/2024 Blood pressure systolic 120 mm Hg 11/15/19 25 Blood pressure diastolic 60 mm Hg 025 Procedures Procedure Date Ordered Date Performed Result Body Sit e 81124-XQDHXQJ NAIL, 6 OR MORE 11/15/2024 N/A 78100-Ilnsnjxb Plate 11/15/2024 N/A 43737-IWYV SKIN LESIONS, 2 TO 4 11/15/2024 N/A Encounters Encounter Location Date Provider Diagnosis [facility] [place] [address] [place] [address] 11/15/2024 Chelsie Black Type 1 diabetes mellitus with diabetic polyneuropathy E10.42 ; Tinea unguium B35.1 ; Ingrown nail L60.0 and Xerosis of skin L85.3 Assessments Encounter Date Diagnosis (ICD Code) Assessment Notes Treatment Notes Treatment Clinical Notes Section Notes 11/15/2024 Type 1 diabetes mellitus with diabetic polyneuropathy (ICD-10 - E10.42) 11/15/2024 Tinea unguium (ICD-10 - B35.1) 11/15/2024 Ingrown nail (ICD-10 - L60.0) 11/15/2024 Xerosis of skin (ICD-10 - L85.3) Plan Of Treatment Medication Medication Name Sig Start Date Stop Date Notes Ammonium Lactate 12 % 1 application Exte rnally to affected areas of dry skin to feet except for between the toes Twice a day for 30 days Pending Test Test Name Order Date 72736-VZANWRI NAIL, 6 OR MORE 11/15/2024 42205-Bpysedzd Plate 11/15/2024 70941-FWUT SKIN LESIONS, 2 TO 4 11/15/19 25 Next Appt Details Follow Up: 2 Weeks,prn, Reas on: Provider Name:Chelsie Li , 02/21/2025 08:15:00 AM, [address] [place] [address], [place], [address], Procedure Notes * Category Sub-Category Detail Notes Nail Avulsion Procedure A fine sterile e levator was placed between the eponychium, nail fold, and nail plate to separate the structures. A sterile nail splitter, and/or sterile 316 blade, was then used to longitudinally section the nail along its entire length through the eponychium to the area under the nail fold. The offending portion of nail was from the nail bed with a rolling action and then removed with a hemostat. No underlying bone was identified. There was minimal bleeding as hemostasis was achieved through the temporary use of either a digital tourniquet or the aforementioned local with epinephrine. A bacitracin sterile dressing was applied. Local wound aftercare instructions were discussed and dispensed. The patient was informed of both conservative and future surgical procedures to prevent recurrence. Tylenol or Motrin was recommended for pain or discomfort (62984), DIABETES: Matricectomy deferred at this time due to diabetes risk Anesthesia , was deferred - MARCIE ROPATHY: patient has medically documented neuropathic condition affecting sensation Location , Lateral nail borde r, TA Debride Nail 6-10 Nail debridement Due to the cl inical pathology outlined in the exam findings, performance of this nail treatment is medically necessary as its management by an unskilled/untrained nonprofessional would put this patients foot and overall health at risk. Therefore, debridement to affected nail(s), as described in exam ( , T2, T3,T5, T4, T6, T8, T9_ ), was performed exclusively by the physician of record to reduce/remove overall nail length, girth, thickness, subungual debris, and necrotic tissue, by manual and/or electrical means through the use of a nail nipper and/or dremel-type gold nib grinder, to a more viable healthy nail plate [...] to maintain effectiveness in symptomatic relief - 19319 Keratoma Treatment Parring or Cutting o f Benign Hyperkeratotic Lesion(s) (-56) 2-4 Lesions - Due to the at risk nature of the patients medical condition as documented in the exam findings, performance of this keratoderma treatment is medically necessary as its management by an unskilled/untrained nonprofessional would put this patients foot and overall health at risk. Therefore, the benign hyperkeratotic lesions, ( 4 ) in total, locations as stated and described in the exam ( ,SUB MTH (s),2,3,Right , plantar Heel(s) , B/L , ), were pared, and/or cut utilizing a sterile 15 blade, tissue nippers, and/or power dremel instrumentation by the physician of record - 57225 Progress Notes * Ana BARAJAS MDOB:[birth year] (69 yo F)Acc No.[id number]:11/15/2024 Progress Note Patient:?Ana BARAJAS M Provider:?Chelsie Li DPM :1955???Age:69 Y???Sex:Female D ate:11/15/2024 Address:[address] [place], [place] [id number] Pcp:Gloria Villarreal Subjective: * Chief Complaints: * ???At Risk FootcareIngrown N ailSkin problem(s) * HPI: ???At Risk footcare:?Pt States Last PCP Visit:?Date?05/20/2024 ???Skin problems:?Nature:?dryness , scaling.?Location:?B/L .?Duration:?several days.?Course:?worse.? * ROS:?General/Constitutional:?Nausea?denies.?Vomiting?denies.?Hunger Thirst?denies.?Loss appetite?denies.?Chills?denies.?Fatigue?denies.?Fever?denies.?Night Sweats?denies.?Unexplained weight loss?denies.?Unexplained [...] was on bed in hallway 22 hrs 11/2021[facility]- Was on Prednisone for swelling feet and legs- 2 nights 12/10/2021 * Family History:?Mother: dece ased, diagnosed with Other malignant neoplasm of unspecified site, Family history of arthritis.?Father: , diagnosed with Diabetic - NIDDM, Unspecified heart disease.? * Social History:?Tobacco Use:?Tobacco use other than smoking?Are you an other tobacco user??No ?Tobacco Control (Standard)?Tobacco use:?Current smoker ?When did you start smoking??10/25/1991 ?How often do you smoke cigarettes??Every day ?How many cigarettes a day do you smoke??11-20 ?How soon after you wake up do you smoke your first cigarette??31-60 minutes ?Are you interested in quitting??Thinking about quitting ?Additional Findings: Tobacco user?Moderate cigarette smoker (10-19 cigs/day) ???Drugs/Alcohol:?Drugs?Have you used drugs other than those for medical reasons in the past 12 months??No ???Miscellaneous:?Caffeine: yes, frequency:, more than 4 cups per day tea. ?Children: yes, 4. ?Exercise: yes, walking, up and down stairs, yard work, house work, volunteering [employer]. ?Marital status: . 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 ???Drug/Alcohol:?AUDIT-C (Standard)?Did you have a drink containing alcohol in the past year??No ?Points?0 ?Interpretation?Negative * Medications:?TakingCalcium V itamin C zzzCompression Stockings 20-30mm Hg 1 pair closed toe- knee high . . . Atorvastatin Calcium 20 MG Tablet Orally Biotin Cimzia Fish Oil HumaLOG Multivitamin Omeprazole , Notes to Pharmacist: PRNExtra Depth Orthopedic Shoes (1 Pair) with Customized Heat Molded Multidensity Innersoles (3 Pair) as directed Dx: IDDM/Polyneuropathy (E10.42), Hammertoe Foot Deformity (M20.41,M20.42), Preulcerative Skin Lesion(s) (L85.1) Taking Calcium Taking Vitamin C Taking zzzCompression Stockings 20-30mm [...] Allergies:?ImuranRemicade: r ashNickelEtanercept: hives,welt,itchingDexamethasone: blood pressure goes up Objective: * Vitals:?Ht:5ft 2in, Wt:160, BMI:29.26, Shoe size:9, BP:120/60mm Hg, BS:169, Ht- cm: 157.48 cm, Wt-k.58 kg. * ???Past Orders: ???Lab:HEMOGLOBIN A1C (GLYCO HEMOGLOBIN) (Order Date - 07/23/2024) (Collection Date & Time - 11/15/2024 07:59 AM) ? Value Reference Range ?HEMOGLOBIN A1C % (HH) 8.3 * Examination: ???Ophthalmology Referral: ?DIABETES EYE EXAM?Procedure Performed:?Yes ?Date of Exam Performed?07/24/2024 ?Diabetic Retinopathy Screening:?Yes ?Retinal Screening Performed:?Yes ?Findings of Diabetic Eye Exam:?no retinopathy?General Examination: ?GENERAL APPEARANCE:?Reveals a pleasant, alert, well nourished, well- developed, well hydrated individual, who demonstrates proper attention to hygiene/body habitus, and is in no acute distress, Pt serves as own historian for office visit today.?ORIENTED:?person, place, and time.?FOOT EXAM:?Lower Extremity Neurological Exam performed:?Yes ?Visual exam of foot performed:?Yes ?Date?11/15/2024 ?Sensory testing performed:?sensations diminished ?Sensory and motor testing performed:?sensations diminished ?Pedal pulse taking performed:?1+?Neurological: ?SENSORY:?Neurological exam demonstrates, reduced sharp/dull pin prick discrimination , reduced vibration sensation, reduced light touch sensation, 5.07 monofilament test performed at plantar aspects of 5 varied sites per foot shows sensation, reduced, at absent , B/L, Pt relates?anesthesia, tingling burning right midfoot.?Vascular: ?DP PULSES (B):?2, B/L.?PT PULSES (B):?/, B/L.?VARICOSITIES:?present, moderate, nonpainful, B/L.?Dermatologic: ?SKIN FINDINGS:?Skin exam reveals keratotic lesion(s) located at?,SUB MTH (s),2,3,Right , plantar?Heel(s) , B/L ,? , Skin shows sign(s) of, dryness, scaling, in a stocking fashion, no fissure(s) present, B/L.?Nails: ?NAILS are:?elongated,overgrown,dystrophic,greater than 3mm thick,discolored and friable with crumbly malodorous subungual debris, ?T2, T3,T5, T4, T6, T8, T9, .?Ingrown Nail: ?INSPECTION:?Reveals nail incurvation, dull pain on palpation due to neuropathy, groove hypertrophy, Lateral nail border, TA.? Assessment: * Assessment: 1.?Type 1 diabetes mellitus with diabetic polyneuropathy - E10.42 (Primary)???2.?Tinea unguium - B35.1???3.?Ingrown nail - L60.0???4.?Xerosis of skin - L85.3???Specify :Acute problem, Uncomplicated (3),Rx Management (4)??? Plan: * Treatment: 2.?Tinea unguium?Procedure: 07554-LHDBALM NAIL, 6 OR MORE 3.?Ingrown nail?Procedure: 23631-Uwufsbmy Plate 4.?Xerosis of skin? Start Ammonium Lactate Cream, 12 %, 1 application, Externally to affected areas of dry skin to feet except for between the toes, Twice a day, 30 days, 280, Refills 3.?? * Procedures:?Debride Nail 6-10:?Nail debridement?Due to the clinical pathology outlined in the exam findings, performance of this nail treatment is medically necessary as its management by an unskilled/untrained nonprofessional would put this patients foot and overall health at risk. Therefore, debridement to affected nail(s), as described in exam ( , T2, T3,T5, T4, T6, T8, T9_ ), was performed exclusively by the physician of record to reduce/remove overall nail length, girth, thickness, subungual debris, and necrotic tissue, by manual and/or electrical means through the use of a nail nipper and/or dremel-type gold nib grinder, to a more viable healthy nail plate [...] to maintain effectiveness in symptomatic relief - 40986.?Keratoma Treatment:?Parring or Cutting of Benign Hyperkeratotic Lesion(s)?(-56) 2-4 Lesions - Due to the at risk nature of the patients medical condition as documented in the exam findings, performance of this keratoderma treatment is medically necessary as its management by an unskilled/untrained nonprofessional would put this patients foot and overall health at risk. Therefore, the benign hyperkeratotic lesions, ( 4 ) in total, locations as stated and described in the exam ( ,SUB MTH (s),2,3,Right , plantar Heel(s) , B/L , ), were pared, and/or cut utilizing a sterile 15 blade, tissue nippers, and/or power dremel instrumentation by the physician of record - 00128.?Nail Avulsion:?Location?, Lateral nail border, TA.?Anesthesia?, was deferred - NEUROPATHY: patient has medically documented neuropathic condition affecting sensation.?Procedure?A fine sterile elevator was placed between the eponychium, nail fold, and nail plate to separate the structures. A sterile nail splitter, and/or sterile 316 blade, was then used to longitudinally section the nail along its entire length through the eponychium to the area under the nail fold. The offending portion of nail was from the nail bed with a rolling action and then removed with a hemostat. No underlying bone was identified. There was minimal bleeding as hemostasis was achieved through the temporary use of either a digital tourniquet or the aforementioned local with epinephrine. A bacitracin sterile dressing was applied. Local wound aftercare instructions were discussed and dispensed. The patient was informed of both conservative and future surgical procedures to prevent recurrence. Tylenol or Motrin was recommended for pain or discomfort (01727), DIABETES: Matricectomy deferred at this time due to diabetes risk.? * Procedure Codes:?87129 DEBRI DE NAIL, 6 OR MORE, Modifiers: XS 70706 Avulsion Plate, [place]: [place] [address] TRIM SKIN LESIONS, 2 TO 4, Modifiers: XS 3052F HG A1C>EQUAL 8.0%<EQUAL 9.0% * Preventive Medicine:? ??Counseling:?Tobacco use:?Type of Tobacco Use Cessation Counseling provided?Smoking cessation education ?Patient counseled on the dangers of smoking and urged to quit:?11/15/2024 ?Discussion:?-13: Office or other outpatient visit for the [...] have encouraged the patient to call the office.?Xerosis:?The patient was counseled on the diagnosis, potential etiologies, and treatment options for their skin condition. We discussed the risks and benefits of each option from performing no treatment, to utilizing OTC topical skin creams/ointments, to utilizing prescription topical creams/ointments, to utilizing customized compounded topical medications and use of nocturnal occlusion with any/all previously detailed therapies. We discussed the advantages and disadvantages of each possible treatment and importance for adherence to all the recommended therapies for optimum success and avoid potential complications such as open sore/infection/possible hospitalization. We discussed the potential effectiveness of each topical preparation as well as each ones possible side effects and/or patient medication interactions. Patient questions re: use, dosage, successful outcomes, and application consistency were reviewed and the patient verbalized that all answers were clearly understood. The patient has decided to apply Rx skin creams to their feet save the interspaces while paying special attention to the heels. Such was sent to their pharmacy at the time of visit.? ??Screening/Special Tests:?Fall Risk?Screening:?No falls in the past year ?FALLS: Screening for Future Fall Risk?Have you had any falls with injury in the past year??No * Follow Up:?2 Weeks,prn * Images: * Sign off status: Completed true * Provider:?Chelsie Li DPM Date:?2024 Generated for Aquiles lomas/Lewis/Antonioitting on:?01/12/2025 10:17 AM EDT History and Physical Notes * HPI (History of Present Illness) Category Sub-Category Detail Notes Category Not es Skin problems Nature: dryness , scaling Location: B/L Duration: several days Course: worse At Risk footcare Pt States Last PCP Visit: Date: Examination Category Sub-Category Detail Notes Category Not es Ingrown Nail INSPECTION: Reveals nail inc urvation, dull pain on palpation due to neuropathy, groove hypertrophy, Lateral nail border, TA Neurological SENSORY: Neurological exa m demonstrates, reduced sharp/dull pin prick discrimination , reduced vibration sensation, reduced light touch sensation, 5.07 monofilament test performed at plantar aspects of 5 varied sites per foot shows sensation, reduced, at absent , B/L, Pt relates anesthesia, tingling burning right midfoot Dermatologic SKIN FINDINGS: Skin exam reveal s keratotic lesion(s) located at ,SUB MTH (s),2,3,Right , plantar Heel(s) , B/L , , Skin shows sign(s) of, dryness, scaling, in a stocking fashion, no fissure(s) present, B/L General Examination GENERAL APPEARANCE: Reveals a pleasant, alert, well nourished, well-developed, well hydrated individual, who demonstrates proper attention to hygiene/body habitus, and is in no acute distress, Pt serves as own historian for office visit today FOOT EXAM: Lower Extremity Neurological Exa m performed:: Yes Visual exam of foot performed:: Yes Date: 11/15/2024 Sensory testing performed:: sensations d iminished Sensory and motor testing performed:: se nsations diminished Pedal pulse taking performed:: 1+ ORIENTED: person, place, and t mitchell Ophthalmology Referral DIABETES EYE EXAM Procedure Perform ed:: Yes ?Date of Exam Performed: 07/24/2024 Diabetic Retinopathy Screening:: Yes Retinal Screening Performed:: Yes Findings of Diabetic Eye Exam:: no retin opathy Vascular DP PULSES (B): 2/4, B/L PT PULSES (B): 1/4, B/L VARICOSITIES: present, moderate, n onpainful, B/L ROMAINE'S SIGN: PALPABLE CORDS: COMPRESSION STOCKINGS: Nails NAILS are: elongated,overgr own,dystrophic,greater than 3mm thick,discolored and friable with crumbly malodorous subungual debris, T2, T3,T5, T4, T6, T8, T9,
--- OUTSIDE RECORDS SUMMARY | 2025-01-12 10:18 | XMS_ITS | Patient Health Record ---
Author Organization [facility] Lor Epstein Address [address] [place] [address] Care Team Providers Care Senior Naval Parachutist Name Role Phone PhilGloria Primary Care Provider Unavailabl e Black, Chelsie Unavailable [phone] Allergies Allergen (clinical drug ingredient) Drug/Non Drug Allergy documented on EMR Reaction Allergy Type Onset Date Status azathioprine Imuran Unknown Drug Allergy Acti ve infliximab Remicade rash Drug Allergy Active dexamethasone Dexamethasone blood pressure goes up Drug Allergy Active etanercept Etanercept hives,welt,itc jay jay Drug Allergy Active nickel Nickel Unknown Allergy Active Results Component Value Reference Range Notes HEMOGLOBIN A1C (GLYCOHEMOGLO BIN) Reviewed date:08/12/2024 08:46:24 AM Interpretation: Performing Lab: Notes/Report: TOTAL HEMOGLOBIN (HGBA1C) 7.1 HEMOGLOBIN A1C (GLYCOHEMOGLO BIN) Reviewed date:11/15/2024 08:00:00 AM Interpretation: Performing Lab: Notes/Report: HEMOGLOBIN A1C % (HH) 8.3 Reason For Referral No Information Medications Medication SIG (Take, Route, Frequency, Duration) Notes Start Date End Date Status Vitamin C Active Remicade Not-Taking Calcium Active predniSONE 20 MG 3 tablet Orally Once [...] 1 tab Oral for 14 days Not-Taking Fish Oil Active Cimzia Active Biotin Active Humira Not-Taking Atorvastatin Calcium 20 MG Orally Active Ibuprofen Not-Taking zzzCompression Stockings 20-30mm Hg . . . for . Active buPROPion HCl 100 MG 1 tablet Orally Twi ce a day for 30 day(s) Not-Taking Estradiol 0.1 MG/GM Vaginal for 90 Not-Taking Calcium Not-Taking Cranberry Not-Taking Fosamax Not-Taking Extra Depth Orthopedic Shoes (1 Pair) with Customized Heat Molded Multidensity Innersoles (3 Pair) as directed Dx: IDDM/Polyneuropathy (E10.42), Hammertoe Foot Deformity (M20.41,M20.42), Preulcerative Skin Lesion(s) (L85.1) 12/01/2023 Active EpiPen 2-Cj Not-Demar ing Omeprazole PRN Active Allergy Not-Taking Multivitamin Active predniSONE Not-Takin g HumaLOG Active Colcrys Not-Taking LORazepam 1 MG 1 tablet at bedtime as needed Orally Once a day PRN Not-Taking Alendronate Sodium 70 MG 1 tablet Orally for 30 day(s) Not-Taking Aspir-81 Not-Taking zzzCompression Stockings 20-30mm Hg . . . for . Not-Taking Extra Depth Orthopedic Shoes (1 Pair) with Customized Heat Molded Multidensity Innersoles (3 Pair) as directed Dx: NIDDM/Polyneuropathy (E11.42), Hammertoe Foot Deformity (M20.41,M20.42), Preulcerative Skin Lesion(s) (L85.1 12/17/2021 Not-Taking Ammonium Lactate 12 % 1 application Externally to affected areas of dry skin to feet except for between the toes Twice a day for 30 days Active Lantus Not-Taking Vitamin D Not-Taking Immunizations Vaccine Route Administration Date Status Comme nts COVID-19 Moderna Vaccine Unknown 11/23/2020 Administere d 1st 10/26/20 Influenza Unknown 10/23/2018 Administered Influenza Unknown 05/24/2019 Administered Influenza Unknown 04/24/2020 Administered Influenza Unknown 05/23/2022 Administered Influenza Unknown 06/23/2023 Administered Social History Tobacco Use: Social History Observation [...] ast year? No Points 0 Interpretation Negative Problems Problem Type SNOMED Code ICD Code Onset Dates Problem Status W/U Status Risk Notes Problem Acquired hammer toe of right foot (757617803808993 5) Other hammer toe(s) (acquired), right foot (M20.41) Active confirmed Problem Acquired hammer toe of left foot (150389560014703 3) Other hammer toe(s) (acquired), left foot (M20.42) Active confirmed Problem Acquired hallux valgus (46013478) Hallux valgus (acquired), right foot (M20.11) Active confirmed Problem Polyneuropathy due to diabetes mellitus type I (290382607) Type 1 diabetes mellitus with diabetic polyneuropathy (E10.42) Active confirmed Problem Arthritis (1179148) Arthritis (M19.90) Active confirmed Problem Neuropathy (146948757) Neuropathy (G62.9) Active confirmed Problem Ulcer of toe of right foot (disorder) (471689892684253 01) Skin ulcer of toe of right foot, limited to breakdown of skin (L97.511) Active confirmed Problem Localized, primary osteoarthritis of the ankle and/or foot (419708451) Arthritis of joint of lesser toe, left (M19.072) Active confirmed Problem Ulcer of toe of left foot (disorder) (796358520610056 02) Skin ulcer of toe of left foot, limited to breakdown of skin (L97.521) Active confirmed Nonapplicable Vital Signs Blood pressure diastolic 60 mm Hg 11/15/2024 Height 5ft 2in in 11/15/2024 Blood pressure systolic 120 mm Hg 11/15/2024 Weight 160 lbs 11/15/2024 BMI 29.26 kg/m2 11/15/2024 Procedures Procedure Date Ordered Date Performed Result Body Sit e 19358-ZIGJIJD NAIL, 6 OR MORE 02/04/2024 N/A 29874 I&D ABSCESS- SIMPLE,SINGLE 02/04/2024 N/A 29496-RUSO SKIN LESIONS, 2 TO 4 02/04/2024 N/A 45060- Removal of Foreign Body, Subcut 02/04/2024 N/A 06870-IPBZILT NAIL, 6 OR MORE 05/07/2024 N/A 15519-LZVC SKIN LESIONS, 2 TO 4 05/07/2024 N/A 40319-ZRAWZTQ NAIL, 6 OR MORE 08/12/2024 N/A 27367-HUDF SKIN LESIONS, 2 TO 4 08/12/2024 N/A 29378-UWJFUOM NAIL, 6 OR MORE 11/15/2024 N/A 45387-Wyrqoltv Plate 11/15/2024 N/A 48412-QBMD SKIN LESIONS, 2 TO 4 11/15/2024 N/A Encounters Encounter Location Date Provider Diagnosis [facility] [address] [place] [address] [place] [address] 02/04/2024 Chelsie Black Tinea unguium B35.1 ; Type 1 diabetes mellitus with diabetic polyneuropathy E10.42 ; Abscess of toe, right L02.611 and Puncture wound with foreign body, right foot, initial encounter S91.341A [facility] [place] [address] 02/18/2024 Chelsie Black Skin ulcer of toe of right foot, limited to breakdown of skin L97.511 [facility] [place] [address] 05/07/2024 Chelsie Black Tinea unguium B35.1 ; Neuralgia and neuritis, unspecified M79.2 ; Type 1 diabetes mellitus with diabetic polyneuropathy E10.42 and Neuropathy G62.[address] [address] 08/12/2024 Chelsie Li Neuralgia and neuritis, unspecified M79.2 ; Type 1 diabetes mellitus with diabetic polyneuropathy E10.42 ; Tinea unguium B35.1 and Neuropathy G62.[address] [address] 11/15/2024 Chelsie Li Type 1 diabetes mellitus with diabetic polyneuropathy E10.42 ; Tinea unguium B35.1 ; Ingrown nail L60.0 and Xerosis of skin L85.[address] [address] 02/03/2024 Chelsie Li Assessments Encounter Date Diagnosis (ICD Code) Assessment Notes Treatment Notes Treatment Clinical Notes Section Notes 02/04/2024 Tinea unguium (ICD-10 - B35.1) 02/18/2024 Skin ulcer of toe of right foot, limited to breakdown of skin (ICD-10 - L97.511) Patient Educated with: WOUND CARE INSTRUCTIONS. pdf (WOUND CARE INSTRUCTIONS. pdf) 05/07/2024 Tinea unguium (ICD-10 - B35.1) 05/07/2024 Neuralgia and neuritis, unspecified (ICD-10 - M79.2) 08/12/2024 Neuralgia and neuritis, unspecified (ICD-10 - M79.2) 08/12/2024 Type 1 diabetes mellitus with diabetic polyneuropathy (ICD-10 - E10.42) 11/15/2024 Type 1 diabetes mellitus with diabetic polyneuropathy (ICD-10 - E10.42) 11/15/2024 Tinea unguium (ICD-10 - B35.1) 05/07/2024 Type 1 diabetes mellitus with diabetic polyneuropathy (ICD-10 - E10.42) 02/04/2024 Type 1 diabetes mellitus with diabetic polyneuropathy (ICD-10 - E10.42) 08/12/2024 Tinea unguium (ICD-10 - B35.1) 02/04/2024 Abscess of toe, right (ICD-10 - L02.611) Patient Educated with: WOUND CARE INSTRUCTIONS. pdf (WOUND CARE INSTRUCTIONS. pdf) 05/07/2024 Neuropathy (ICD-10 - G62.9) 11/15/2024 Ingrown nail (ICD-10 - L60.0) 08/12/2024 Neuropathy (ICD-10 - G62.9) 11/15/2024 Xerosis of skin (ICD-10 - L85.3) 02/04/2024 Puncture wound with foreign body, right foot, initial encounter (ICD-10 - S91.341A) 02/04/2024 Other 02/18/2024 Other 05/07/2024 Other Plan Of Treatment Pending Test Test Name Order Date 60811-DEREVRO NAIL, 6 OR MORE 02/04/2019 04001-TZURBCJ NAIL, 6 OR MORE 05/06/2019 36261-SJSBREF NAIL, 6 OR MORE 08/09/2019 35040-PFHFMDM NAIL, 6 OR MORE 11/04/2019 93692-PXHULSU NAIL, 6 OR MORE 02/10/2020 07496-JFIRQNO NAIL, 6 OR MORE 05/15/2020 30421-GHYGCDO NAIL, 6 OR MORE 08/21/2020 07039-FCRURCC NAIL, 6 OR MORE 11/20/2020 05193-GTRSOAM NAIL, 6 OR MORE 03/22/2021 89835-KTCZUHR NAIL, 6 OR MORE 07/05/2021 87874-XLMFNLE NAIL, 6 OR MORE 09/20/2021 97596-KTYOMYT NAIL, 6 OR MORE 12/17/2021 46726-GNVFOCH NAIL, 6 OR MORE 03/04/2022 81772-HAYLGZF NAIL, 6 OR MORE 05/16/2022 07111-PHDCJBY NAIL, 6 OR MORE 07/22/2022 52257-MVHICKA NAIL, 6 OR MORE 10/31/2022 89754-FYXCTKI NAIL, 6 OR MORE 01/09/2023 36756-VEFUTUO NAIL, 6 OR MORE 03/20/2023 30337-GFNYDBO NAIL, 6 OR MORE 06/09/2023 61926-UNGURYO NAIL, 6 OR MORE 08/25/2023 74182-AMTSXMG NAIL, 6 OR MORE 12/01/2023 89592-GWIOQWQ NAIL, 6 OR MORE 02/04/2024 16685-IWEMXUA NAIL, 6 OR MORE 05/07/2024 91349-RRLQRNF NAIL, 6 OR MORE 08/12/2024 65482-IVFOMNR NAIL, 6 OR MORE 11/15/2024 20452-GHRSCOG NAIL, 1-5 02/20/2015 65852-Tdamrtqw Plate 08/09/2019 76055-Tsismxwa Plate 12/17/2021 00682-Qyzkaqpu Plate 05/15/2020 88082-Enywkgid Plate 11/20/2020 38352-Swapzkrk Plate 11/15/2024 48680-Kytsrjma Plate 12/01/2023 42217-Yaxmbywu Plate 10/31/2022 70458-Egqntnnw Plate 07/05/2021 63058-Wvcsgxlv Plate Each Additional 05/2023 33072-Xkybirwf Plate Each Additional 07/2024 15105-Bunsqskq Plate Each Additional 64944-Fsabjiah Plate Each Additional 57862- Debride <25 sq cm 06/09/2023 74089 I&D ABSCESS- SIMPLE,SINGLE 024 71924-FKDS SKIN LESIONS, OVER 4 06/09/20 23 27757-UOSU SKIN LESIONS, OVER 4 08/25/20 23 74599-ITQU SKIN LESIONS, OVER 4 01/10/20 23 64940-TYYQ SKIN LESIONS, OVER 4 03/20/20 23 34128-FHSN SKIN LESIONS, 2 TO 4 10/31/19 27575-TGEQ SKIN LESIONS, 2 TO 4 07/22/20 83935-UAVT SKIN LESIONS, 2 TO 4 05/16/20 66819-ZSQR SKIN LESIONS, 2 TO 4 02/04/20 59220-RIYL SKIN LESIONS, 2 TO 4 12/01/19 09928-ZXHZ SKIN LESIONS, 2 TO 4 11/15/19 15269-WVAK SKIN LESIONS, 2 TO 4 08/12/20 80497-DHRI SKIN LESIONS, 2 TO 4 05/07/20 98446-NVWI SKIN LESIONS, 2 TO 4 08/09/20 34858-YIUG SKIN LESIONS, 2 TO 4 02/05/20 82449-RITK SKIN LESIONS, 2 TO 4 05/06/20 56935-PDDH SKIN LESIONS, 2 TO 4 08/21/20 20 11821-NKKN SKIN LESIONS, 2 TO 4 05/15/20 55609-MSJJ SKIN LESIONS, 2 TO 4 02/10/20 20 19417-FAKV SKIN LESIONS, 2 TO 4 11/04/19 20 72380-CVCN SKIN LESIONS, 2 TO 4 03/04/20 11624-QSGF SKIN LESIONS, 2 TO 4 12/18/19 84825-EBAH SKIN LESIONS, 2 TO 4 09/20/20 21 44810-DPCU SKIN LESIONS, 2 TO 4 11/21/19 12481-IYBP SKIN LESIONS, 2 TO 4 07/05/20 11376-LNUU SKIN LESIONS, 2 TO 4 03/22/20 89246- Removal of Foreign Body, Subcut 0 02/04/2024 Next Appt Details Provider Name:Chelsie Li , 02/21/2025 08:15:00 AM, [address] [place] [address], [address], Insurance Providers Payer Name Payer Address Payer Phone Subscriber Number Group Number Insured Name Patient Relationship to Insured Coverage Start Date Coverage End Date [facility] [employer] [address] [facility] [address] [id number] Ana Childress Self - patient is the insured [facility] [address] [place] [id number] Ana Childress Self - patient is the insured Medical (General) History Medical History History ICD Code Anxiety Arthritis Cataracts Neuropathy Mumps Chicken pox Back,Hip,and Knee pain CAD (Cholesterol) Cancer Depression Diabetes mellitus Numbness Osteoporosis Reflux ( GERD) Stomach ulcer Urinary tract infections Surgical History Surgery Date(Month/Year) Both legs [facility] surgery & 04/2014 removed galbladder 11/05/2016 spline removal broken leg required surgery 07/2019 bladder cancer 08/2021 biopsy done on leg, andrae n, traveled from leg to ankle- mersa right leg 05/29/24 Hospitalization History Reason Date(Month/Year) [facility]- Was on Pre dnisone for swelling feet and legs- 2 nights 12/10/2021 [facility] ER - Hospitalized f or feet/Leg swelling-Left hospital because was on bed in hallway 22 hrs 11/2021 [facility] bladder cancer treatments-Ended 11/2910/25/2021
== END 2025-01-12 10:01 | disposition home or self-care (01) ==
LOC: HO.ENCR 09:21
PROVIDERS: Visit Provider Nurse Practitioner Adult Health
DX: E13.9 Other specified diabetes mellitus without complications (principal); S36.209S Unspecified injury of unspecified part of pancreas, sequela
CPT/HCPCS: 99214; G2211

== ENCOUNTER → 2025-01-12 09:21 | Outpatient (BNVA) | payer MEDICARE, OTHER, SELFPAY | PROVIDERS: Visit Provider Nurse Practitioner Adult Health | DX: E13.9 Other specified diabetes mellitus without complications (principal); S36.209S Unspecified injury of unspecified part of pancreas, sequela; Z79.4 Long term (current) use of insulin | CPT/HCPCS: 82947; 99212 ==

== ENCOUNTER 2025-02-18 10:12 | Outpatient (AMB) | payer MEDICARE, OTHER, SELFPAY ==
[2025-02-18 10:18] VITALS: BP 148/94; PULSE 85; TEMP 36.8; O2SAT 96; BMI 29.8
--- NOTE | 2025-02-18 10:18 | AM.OFFWIN_ITS ---
Intake Vital Signs 02/18/25 10:18 Height 5 ft 2.5 in Weight 165 lb 8 oz BMI 29.8 BP 148/94 H Blood Pressure Location Lt brachial Position Sitting Pulse 85 Pulse Source Pulse Oximeter Temp 98.2 F Temp Source Oral Pulse Oximetry (%) 96 Oxygen Delivery Method Room Air Intake Visit Reasons: EP ?infection on arms Intake Note: Pt presents to the office today for c/o possible poison kathy on her arms and face x6 days. Pt states she was working outside in her yard last friday. Patient Tobacco Use Status: Current everyday Tobacco user Allergies azathioprine [From IMURAN] Allergy (Unknown, Verified 02/18/25 10:22) ABNORMAL LABS,HIVES etanercept [From ENBREL] Allergy (Unknown, Verified 02/18/25 10:22) HIVES infliximab [From REMICADE] Allergy (Unknown, Verified 02/18/25 10:22) RASH levofloxacin Allergy (Unknown, Verified 02/18/25 10:22) GI Upset nickel [NICKEL] Allergy (Unknown, Verified 02/18/25 10:22) UNKNOWN tramadol Adverse Reaction (Verified 02/18/25 10:22) Nausea, sweating, dizzy HPI EP ?infection on arms HPI Details This is a 70-year-old female patient who presents to the walk-in clinic today with a worsening poison kathy rash. She states that she was exposed to poison kathy while working in her yd last Friday, and developed a rash the following day. She states that she has been using sybp-yvz-sudalxw products, however rash only seems to be spreading. She is extremely itchy, and having difficulty sleeping at night due to this. Rash is on her arms, R>L, and she also has some areas developing on her face. 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 Thyroid nodule Right tibial fracture Tobacco abuse Fractured coccyx Pulmonary nodule History of DVT (deep vein thrombosis) Behcet's syndrome COPD (chronic obstructive pulmonary disease) Osteoporosis Anxiety GERD (gastroesophageal reflux disease) Malignant neoplasm of pancreas, unspecified Obstructive sleep apnea Surgical History History of back surgery History of surgery History of colonoscopy History of varicose veins of lower extremity History of surgery History of pancreatic surgery History of open reduction and internal fixation (ORIF) procedure H/O splenectomy History of cholecystectomy Family History Father Diabetes Advanced cardiac disease Mother Asthma Osteoporosis Brain cancer Brother Lung cancer Sister Breast cancer History of Coumadin therapy Brother Colostomy in place Daughter No problems noted. Son No problems noted. Social History Household Members: None Housing: House Do you presently have visiting nurse or other home services: No Alcohol intake: never Patient Tobacco Use Status: Current everyday Tobacco user Tobacco use type: Cigarette Cigarette Packs Per Day: 0.5 Cigarettes Per Day: 10 Years Smoked: 50 e-Cigarette/Vaping Use: Never Used Second Hand Smoke Exposure: No Advance Directives Date on File: 12/11/21 service: No Current occupational status: retired Cognitive needs: No Hearing needs: No Vision needs: Yes Review of Systems Const All systems reviewed & are unremarkable except as noted in HPI and below Physical Exam Const General: cooperative and no acute distress Resp Effort & Inspection: normal respiratory effort Auscultation: clear to auscultation bilaterally Cardio Rate: regular rate Rhythm: regular rhythm Skin Other: Rash consistent with contact dermatitis most significantly on her right arm, with some blistered areas, and some areas that have scabbed over. Surrounding erythema and scratch gomez present. Smaller areas also present on left arm and on left cheek/upper lip area. Extrem General: Yes capillary refill normal and Yes no clubbing, cyanosis or edema Psych Appearance: grossly normal Mental Status: mental status grossly normal Speech and movement: Normal speech and movement present Assessment & Plan Assessment & Plan (1) Contact dermatitis due to plant: Code(s): L25.5 - Unspecified contact dermatitis due to plants, except food Plan: Will start patient on prednisone taper and also hydroxyzine for bedtime. We reviewed indications, use, possible side effects of these medications, including increased glucose levels on the prednisone. History of DM, and is aware she will need to monitor BS more closely. If she does not improve with time and treatment, she can return to the clinic for further evaluation. She verbalizes understanding and agrees to plan. Medications: New 2 prednisone Take 4 tabs for two days, then take 3 tabs for two days, then take 2 tabs for two days, then take 1 tab for 2 days. 10 mg PO DAILY 20 tabs 0RF L25.5 - Unspecified contact dermatitis due to plants, except food hydroxyzine HCl Take one tablet up to twice a day as needed for itching. Do not take other hydroxyzine-containing medication while taking this med. 25 mg PO BID 7 days 14 tabs 0RF L25.5 - Unspecified contact dermatitis due to plants, except food Coding Level of Care Code Est Pt Level 4 (18299) Diagnoses Contact dermatitis due to plant L25.5
--- OUTSIDE RECORDS SUMMARY | 2025-02-18 10:51 | XMS_ITS | Patient Health Record ---
Author Organization [facility] Address [address] [place] [address] Care Team Providers Care Industrial Maintenance Tech Name Role Phone PhilGloria Primary Care Provider Unavailabl e Black, Chelsie Unavailable [phone] Allergies Allergen (clinical drug ingredient) Drug/Non Drug [...] Problem Acquired hammer toe of right foot (689802304431419 5) Other hammer toe(s) (acquired), right foot (M20.41) Active confirmed Problem Acquired hammer toe of left foot (781717333744764 3) Other hammer toe(s) (acquired), left foot (M20.42) Active confirmed Problem Acquired hallux valgus (41108882) Hallux valgus (acquired), right foot (M20.11) Active confirmed Problem Polyneuropathy due to diabetes mellitus type I (614208576) Type 1 diabetes mellitus with diabetic polyneuropathy (E10.42) Active confirmed Problem Arthritis (2873470) Arthritis (M19.90) Active confirmed Problem Neuropathy (170222001) Neuropathy (G62.9) Active confirmed Problem Ulcer of toe of right foot (disorder) (010015897161311 01) Skin ulcer of toe of right foot, limited to breakdown of skin (L97.511) Active confirmed Problem Localized, primary osteoarthritis of the ankle and/or foot (391018318) Arthritis of joint of lesser toe, left (M19.072) Active confirmed Problem Ulcer of toe of left foot (disorder) (985709104790299 02) Skin ulcer of toe of left foot, limited to breakdown of skin (L97.521) Active confirmed Nonapplicable Vital Signs Blood pressure diastolic 60 mm Hg 11/15/2024 Height 5ft 2in in 11/15/2024 Blood pressure systolic 120 mm Hg 11/15/2024 Weight 160 lbs 11/15/2024 BMI 29.26 kg/m2 11/15/2024 Procedures Procedure Date Ordered Date Performed Result Body Sit e 94443-EHRQHXH NAIL, 6 OR MORE 05/07/2024 N/A 33793-ERER SKIN LESIONS, 2 TO 4 05/07/2024 N/A 91113-PJYOTOX NAIL, 6 OR MORE 08/12/2024 N/A 56691-IUAW SKIN LESIONS, 2 TO 4 08/12/2024 N/A 10961-COZYEUD NAIL, 6 OR MORE 11/15/2024 N/A 66273-Cqdkratd Plate 11/15/2024 N/A 37941-IAHV SKIN LESIONS, 2 TO 4 11/15/2024 N/A Encounters Encounter Location Date Provider Diagnosis [address] [address] 05/07/2024 Chelsie Black Tinea unguium B35.1 ; Neuralgia and neuritis, unspecified M79.2 ; Type 1 diabetes mellitus with diabetic polyneuropathy E10.42 and Neuropathy G62.[address] [address] 08/12/2024 Chelsie Black Neuralgia and neuritis, unspecified M79.2 ; Type 1 diabetes mellitus with diabetic polyneuropathy E10.42 ; Tinea unguium B35.1 and Neuropathy G62.[address] [address] 11/15/2024 Chelsie Black Type 1 diabetes mellitus [...] E10.42) 08/12/2024 Tinea unguium (ICD-10 - B35.1) 05/07/2024 Neuropathy (ICD-10 - G62.9) 11/15/2024 Ingrown nail (ICD-10 - L60.0) 08/12/2024 Neuropathy (ICD-10 - G62.9) 11/15/2024 Xerosis of skin (ICD-10 - L85.3) 05/07/2024 Other Plan Of Treatment Pending Test Test Name Order Date 48719-VDGZGQJ NAIL, 6 OR MORE 02/04/2019 81292-TQSLKUI NAIL, 6 OR MORE 05/06/2019 04607-JCVMAEY NAIL, 6 OR MORE 08/09/2019 69124-GMDHMYR NAIL, 6 OR MORE 11/04/2019 77842-RXNHXSZ NAIL, 6 OR MORE 02/10/2020 81333-QIZXHLT NAIL, 6 OR MORE 05/15/2020 55804-WDLGUXD NAIL, 6 OR MORE 08/21/2020 91167-LMOVYZT NAIL, 6 OR MORE 11/20/2020 16792-ERMFPKG NAIL, 6 OR MORE 03/22/2021 97556-KJBBDBH NAIL, 6 OR MORE 07/05/2021 38843-WMVMPIQ NAIL, 6 OR MORE 09/20/2021 73618-DACOWYR NAIL, 6 OR MORE 12/17/2021 74065-NRDVMUS NAIL, 6 OR MORE 03/04/2022 12306-VJJSGXD NAIL, 6 OR MORE 05/16/2022 53380-JKZZITP NAIL, 6 OR MORE 07/22/2022 28402-KYTQVWW NAIL, 6 OR MORE 10/31/2022 45622-RCQBARN NAIL, 6 OR MORE 01/09/2023 46967-RQCPQZW NAIL, 6 OR MORE 03/20/2023 65349-DMSLMKB NAIL, 6 OR MORE 06/09/2023 42150-KFZIHPH NAIL, 6 OR MORE 08/25/2023 45861-ZVWUQTN NAIL, 6 OR MORE 12/01/2023 86359-CMCWKWY NAIL, 6 OR MORE 02/04/2024 83365-JSSAFEM NAIL, 6 OR MORE 05/07/2024 39916-DMQRNRJ NAIL, 6 OR MORE 08/12/2024 09576-HATIDBJ NAIL, 6 OR MORE 11/15/2024 16456-XFYGQUJ NAIL, 1-5 02/20/2015 55765-Sjcjphrs Plate 08/09/2019 63437-Qemrhkqd Plate 12/17/2021 59718-Afiszapz Plate 05/15/2020 60800-Wurgdevb Plate 11/20/2020 21060-Ycypzhvl Plate 11/15/2024 30026-Wxwlugvq Plate 12/01/2023 13565-Ldveegwe Plate 10/31/2022 34162-Cuuasjeq Plate 07/05/2021 11158-Hpthfcoz Plate Each Additional 05/2023 27035-Lwlnibot Plate Each Additional 07/2024 97917-Ozqibphg Plate Each Additional 39734-Bkqywrex Plate Each Additional 01007- Debride <25 sq cm 06/09/2023 54919 I&D ABSCESS- SIMPLE,SINGLE 024 33657-AXNK SKIN LESIONS, OVER 4 06/09/20 23 57014-DOHJ SKIN LESIONS, OVER 4 08/25/20 23 05949-NATM SKIN LESIONS, OVER 4 01/10/20 23 59583-MMFV SKIN LESIONS, OVER 4 03/20/20 23 69990-IFXS SKIN LESIONS, 2 TO 4 10/31/19 23 40810-MQPW SKIN LESIONS, 2 TO 4 07/22/20 26484-OXYH SKIN LESIONS, 2 TO 4 05/16/20 49721-VRZL SKIN LESIONS, 2 TO 4 02/04/20 24 87329-NLWN SKIN LESIONS, 2 TO 4 12/01/19 09661-JLSR SKIN LESIONS, 2 TO 4 11/15/19 25 21282-YMOL SKIN LESIONS, 2 TO 4 08/12/20 24 21604-XDIF SKIN LESIONS, 2 TO 4 05/07/20 24 76349-JEXZ SKIN LESIONS, 2 TO 4 08/09/20 62400-BDCN SKIN LESIONS, 2 TO 4 02/05/20 26650-STDB SKIN LESIONS, 2 TO 4 05/06/20 91443-IVKO SKIN LESIONS, 2 TO 4 08/21/20 33076-RYFU SKIN LESIONS, 2 TO 4 05/15/20 74580-KCLS SKIN LESIONS, 2 TO 4 02/10/20 33676-DSJQ SKIN LESIONS, 2 TO 4 11/04/19 70923-FZSF SKIN LESIONS, 2 TO 4 03/04/20 32593-LZJS SKIN LESIONS, 2 TO 4 12/18/19 17655-HMEU SKIN LESIONS, 2 TO 4 09/20/20 91177-MAKC SKIN LESIONS, 2 TO 4 11/21/19 04283-ABLW SKIN LESIONS, 2 TO 4 07/05/20 79465-LUKX SKIN LESIONS, 2 TO 4 03/22/20 90400- Removal of Foreign Body, Subcut 0 02/04/2024 Next Appt Details Provider Name:Chelsie Li , 02/21/2025 08:15:00 AM, [address] [facility], [place], [address], Insurance Providers Payer Name Payer Address Payer Phone Subscriber Number Group Number Insured Name Patient Relationship to Insured Coverage Start Date Coverage End Date Medicare National [employer] [address] [facility] [place] [address] [id number] Ana Childress Self - patient is the insured [facility] [address] [place] [address] [id number] Ana Childress Self - patient is the [...] bladder cancer 08/2021 biopsy done on leg, infectio n, traveled from leg to ankle- [place] right leg 05/29/24 Hospitalization History Reason Date(Month/Year) [facility]- Was on Pre dnisone for swelling feet and legs- 2 nights 12/10/2021 [facility] ER - Hospitalized f or feet/Leg swelling-Left hospital because was on bed in hallway 22 hrs 11/2021 [facility] bladder cancer treatments-Ended 11/2910/25/2021
== END 2025-02-18 10:58 | disposition home or self-care (01) ==
PROVIDERS: PCP Internal Medicine; Visit Provider Nurse Practitioner Family
DX: L25.5 Unspecified contact dermatitis due to plants, except food (principal)

== ENCOUNTER → 2025-02-18 10:12 | Outpatient (BNVA) | payer MEDICARE, OTHER, SELFPAY | PROVIDERS: PCP Internal Medicine; Visit Provider Nurse Practitioner Family | DX: L25.5 Unspecified contact dermatitis due to plants, except food (principal) | CPT/HCPCS: 99212 ==

== ENCOUNTER 2025-05-31 11:18 | Outpatient (AMB) | payer MEDICARE, OTHER, SELFPAY ==
--- OUTSIDE RECORDS SUMMARY | 2012-04-01 | XMS_ITS | Encounter Summary ---
Author Organization [facility] Address [address] [place] [address] Phone Care Team Providers Care Home Hospice Rn Name Role Phone Unavailable Primary Care Provider Unavailabl e Encounter Details Date Type Department Care Team (Late st Contact Info) Description 04/01/2012 Hospital Encounter [facility],Outside Imaging [address] [place] [address] Unknown, Unknown, Social History Tobacco Use Types [...] It is not the complete legal health record.[facility]
--- OUTSIDE RECORDS SUMMARY | 2013-08-27 01:00 | XMS_ITS | Encounter Summary ---
Author Organization [facility] Address [address] [place] [address] Phone Care Team Providers Care Application Security Engineer Name Role Phone Unavailable Primary Care Provider Unavailabl e Encounter Details Date Type Department Care Team (Late st Contact Info) Description 08/27/2013 Hospital Encounter [facility],Outside Imaging [address] [place], [place] [phone] Unknown, Unknown, Social History Tobacco Use Types [...] It is not the complete legal health record.[facility]
[2025-05-31 11:18] VITALS: BP 134/76; PULSE 74; O2SAT 97; BMI 29.0
--- NOTE | 2025-05-31 11:18 | A.OFFPC_ITS ---
Vital Signs 05/31/25 11:18 Height 5 ft 2.5 in Weight 161 lb BMI 29.0 BP 134/76 Blood Pressure Location Lt brachial Position Sitting Pulse 74 Pulse Source Pulse Oximeter Pulse Oximetry (%) 97 Oxygen Delivery Method Room Air Intake Visit Reasons: Annual Exam - see comments Allergies azathioprine (From IMURAN) Allergy (Unknown, Verified 05/31/25 11:19) ABNORMAL LABS,HIVES etanercept (From ENBREL) Allergy (Unknown, Verified 05/31/25 11:19) HIVES infliximab (From REMICADE) Allergy (Unknown, Verified 05/31/25 11:19) RASH levofloxacin Allergy (Unknown, Verified 05/31/25 11:19) GI Upset nickel (NICKEL) Allergy (Unknown, Verified 05/31/25 11:19) UNKNOWN tramadol Adverse Reaction (Verified 05/31/25 11:19) Nausea, sweating, dizzy Medication List - Last Reconciled 05/31/25 by Gloria Villarreal MD [AutoPAP 5-15 cm of water humidified AIR As directed] acetone (urine) test (Ketostix strips) As directed albuterol sulfate 90 mcg/actuation 1 puff inhalation QID PRN alcohol swabs 400 pad topical 6XD alendronate 70 mg PO ascorbic acid (vitamin C) 500 mg PO DAILY 90 days atorvastatin 20 mg PO DAILY blood glucose control, high As directed to calibrate meter blood pressure monitor (Blood Pressure Kit) As directed blood sugar diagnostic (OneTouch Verio test strips) TEST 3 TIMES A DAY blood-glucose meter (OneTouch Verio Flex Start kit) As directed blood-glucose sensor ([employer] G7 Sensor device) As directed change every 10 days bupropion HCl XL (Wellbutrin XL) 300 mg PO QAM certolizumab pegol (Cimzia) 200 mg subcut Q4W cholecalciferol (vitamin D3) 25 mcg PO DAILY fluticasone propionate 50 mcg/actuation (Flonase Allergy Relief) 2 sprays intranasal DAILY glucagon 3 mg/actuation (Baqsimi) 3 mg intranasal BID PRN 30 days hydroxyzine HCl 25 mg PO BID 7 days insulin lispro (Humalog KwikPen (U-100) Insulin) inject 3-5 units prior to meals subcutaneously 3 times a day; levocetirizine 5 mg PO DAILY PRN lisinopril 30 mg PO DAILY lorazepam 1 mg PO DAILY PRN 30 days multivitamin 1 tab PO DAILY omega-3 fatty acids (Fish Oil Concentrate) 1,000 mg PO DAILY omeprazole 40 mg PO .prn ondansetron 8 mg PO Q8H PRN pen needle, diabetic (BD Ultra-Fine Margaret Pen Needle) USE 4 PEN NEEDLES DAILY WITH INSULIN Tresiba FlexTouch U-200 (insulin degludec) 20 units (0.1 mL) subcut BEDTIME 90 days NS Tobacco use date assessed: 12/15/24 Fall risk assessment: No Falls in past year Last assessed Fall Risk: 05/31/25 Dental Screening Dental Screen Date: 12/15/24 HPI Annual Exam - see comments HPI Details seeing [place] doctor for the pancreatic mass- july MRI to check increase in size 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 Thyroid nodule Right tibial fracture Tobacco abuse Fractured coccyx Pulmonary nodule History of DVT (deep vein thrombosis) Behcet's syndrome COPD (chronic obstructive pulmonary disease) Osteoporosis Anxiety GERD (gastroesophageal reflux disease) Malignant neoplasm of pancreas, unspecified Obstructive sleep apnea Surgical History History of back surgery History of surgery History of colonoscopy History of varicose veins of lower extremity History of surgery History of pancreatic surgery History of open reduction and internal fixation (ORIF) procedure H/O splenectomy History of cholecystectomy Family History Father Diabetes Advanced cardiac disease Mother Asthma Osteoporosis Brain cancer Brother Lung cancer Sister Breast cancer History of Coumadin therapy Brother Colostomy in place Daughter No problems noted. Son No problems noted. Social History (Updated 05/31/25 @ 12:04 by Gloria Villarreal MD) Household Members: None Housing: House Do you presently have visiting nurse or other home services: No Alcohol intake: never Patient Tobacco Use Status: Current everyday Tobacco user Tobacco use type: Cigarette Cigarette Packs Per Day: 0.5 Cigarettes Per Day: 10 Years Smoked: 49 , still smoking (05/2025) e-Cigarette/Vaping Use: Never Used Second Hand Smoke Exposure: No Advance Directives Date on File: 12/11/21 service: No Current occupational status: retired Cognitive needs: No Hearing needs: No Vision needs: Yes Questionnaire PHQ-9 Over the last 2 weeks, how often have you been bothered by any of the following problems? 1. Little interest or pleasure in doing things: not at all 2. Feeling down, depressed, or hopeless: several days 3. Trouble falling or staying asleep, or sleeping too much: not at all 4. Feeling tired or having little energy: several days 5. Poor appetite or overeating: several days 6. Feeling bad about yourself - or that you are a failure or have let yourself or your family down: not at all 7. Trouble concentrating on things, such as reading the newspaper or watching television: several days 8. Moving or speaking so slowly that other people could have noticed. Or the opposite - being so fidgety or restless that you have been moving around a lot more than usual: several days 9. Thoughts that you would be better off or of hurting yourself in some way: not at all Total score: 5 Depression Screening Interpretation: Negative Depression Screening Done: Yes Source: Developed by Drs. Sukhdeep Franz, Ana Alexander, Varinder Muro and colleagues, with an educational malachi from [employer]. Thrive Questionnaire Date Thrive assessed: 12/15/24 AUDIT C Alcohol Use Questionnaire (AUDIT-C) 1. How often do you have a drink containing alcohol?: Never 3. How often do you have six or more drinks on one occasion?: Never Total Score: 0 Score Reviewed/Action Taken: No LISHA-7 AMB Questionnaire LISHA-7 Date LISHA - 7 assessed: 12/15/24 Source: Developed by Drs. Sukhdeep Franz, Ana Alexander, Varinder Muro and colleagues, with an educational malachi from [employer]. Review of Systems Const Denies poor appetite and Denies weakness Eyes Denies no additional complaints ENT Reports Normal hearing present, Denies dizziness, Denies nasal congestion, Denies tinnitus and Denies sore throat Card Denies chest pain, Denies syncope, Denies rapid heart rate and Denies dyspnea Resp Denies cough and Denies dyspnea GI Denies change in stool character, Reports constipation, Denies diarrhea, Denies nausea and Denies vomiting Denies urinary frequency, Denies difficulty voiding and Denies dysuria Neuro Reports Normal hearing present, Denies confusion, Denies dizziness, Denies syncope and Denies weakness Psych Denies confusion Physical exam (Primary Care) Vital Signs: Last Vital Signs Pulse 74 05/31/25 11:18 BP 134/76 05/31/25 11:18 Pulse Ox 97 05/31/25 11:18 Oxygen Delivery Method Room Air 05/31/25 11:18 BMI result Body Mass Index 29.0 Tobacco/Smoking Status: Tobacco use Status Tobacco use date assessed 12/15/24 05/31/25 11:20 Patient Tobacco Use Status Current everyday Tobacco 05/31/25 12:04 Tobacco use type Cigarette 05/31/25 12:04 e-Cigarette/Vaping Use Never Used 05/31/25 12:04 PHQ-9: PHQ-9 Score PHQ-9: Total score 5 05/31/25 17:18 Depression Screening Interpretation: Negative Thrive Assessment: Date of Thrive Assessment Date Thrive assessed 12/15/24 05/31/25 11:20 Const General: No confusion Orientation/consciousness: No confusion HENMT Head: Yes normocephalic Ears: external ears normal and TM's normal bilaterally Face and sinus: Yes normal facial exam Mouth: moist mucous membranes Throat: Yes tonsils normal Eyes Conjunctivae: conjunctivae normal Pupils: Equal, round and reactive pupils present and Pupil accommodation reflex normal Direct Ophthalmoscopy: normal light reflex Neck Neck: No lymphadenopathy Thyroid: Thyroid normal Chest Chest palpation & inspection: normal inspection of the chest Resp Effort & Inspection: normal respiratory effort and no audible wheezes Auscultation: clear to auscultation bilaterally, no crackles, no wheezes and lung sounds not diminished Cardio Rate: regular rate Rhythm: regular rhythm Peripheral pulses: radial pulses present and dorsalis pedis present GI Palpation (GI): no masses Auscultation: normal bowel sounds and normoactive bowel sounds Rectal Exam - Female: deferred Skin General skin exam: no rashes or lesions noted Rashes: no rashes Neuro General: No confusion Cranial nerves: Yes Equal, round and reactive pupils present and Yes Normal hearing present Cognition (Neuro): normal cognition Gait exam (Neuro): Normal gait present Motor exam (neuro): 5/5 motor strength present throughout Deep tendon reflexes (DTR's): Right brachioradialis reflex intensity grade: 2+, Left brachioradialis reflex intensity grade: 2+, Right patellar reflex intensity grade: 2+ and Left patellar reflex intensity grade: 2+ Extrem General: No edema Results AMB Hemoglobin A1c AMB Hemoglobin A1c 7.7 % Last Edit by Sarita Urbina CMA on 05/31/25 11 :42 Immunizations pneumoc 20-benita conj-dip cr(PF) 0.5 mL IM syringe Performing Provider: Gloria Villarreal MD [facility] Administered by: NARA Rivera on 05/31/25 12:20 Dose Route Admin Location Dispensed Lot Number Expiration Date [facility] Inspector Plumbing 0.5 mL IM Left Deltoid 0.5 mL [id number] 05/23/26 [employer] Total Dispensed Waste 0.5 mL 0 % VIS Given Date VIS Provided VIS Publication Date 05/31/25 Single Vaccine 25 Eligibility Eligibility Date Funding Source Not [facility] Eligible 05/31/25 Private Results Reviewed Results Reviewed: Laboratory Last Values Hgb A1c (Clinic) 7.7 % (4.0-6.0) H 05/31/25 11:21 Coding Level of Care Code Est Pt Prev Care >65y(08418) Diagnoses Annual physical exam Z00.00 Tobacco abuse Z72.0 Obstructive sleep apnea G47.33 Pulmonary emphysema, unspecified emphysema type J43.9 COPD type: emphysema Emphysema type: unspecified Bladder mass N32.89 Gastroesophageal reflux disease without esophagitis K21.9 Esophagitis presence: without esophagitis Age-related osteoporosis without current pathological fracture M81.0 Osteoporosis type: age-related Presence of current pathological fracture: without current pathological fracture Hyperlipidemia LDL goal <100 E78.5 Essential hypertension I10 Generalized anxiety disorder F41.1 Type 2 diabetes mellitus with hyperglycemia E11.65 Tinnitus H93.19 Malignant neoplasm of pancreas, unspecified C25.9 Right shoulder pain M25.511 Primary pancreatic neuroendocrine tumor D3A.8 Assessment & Plan Assessment & Plan (1) Annual physical exam: Code(s): Z00.00 - Encounter for general adult medical examination without abnormal findings Category: Medical Plan: Patient is advised to eat healthy, keep well hydrated, keep active and have adequate sleep. (2) Tobacco abuse: Code(s): Z72.0 - Tobacco use Category: Medical Plan: Patient is advised strongly to stop smoking! (3) Obstructive sleep apnea: Comment: Study done 01/02/2023 mild, AutoPAP 5-15 cm of water Code(s): G47.33 - Obstructive sleep apnea (adult) (pediatric) Category: Medical Plan: Continue to use the CPAP more than 4 hours a night and benefits from this (4) COPD (chronic obstructive pulmonary disease): Code(s): J44.9 - Chronic obstructive pulmonary disease, unspecified Category: Medical Qualifiers: COPD type: emphysema Emphysema type: unspecified Qualified Code(s): J43.9 - Emphysema, unspecified Plan: Stop smoking patient point patient on albuterol inhaler (5) Bladder mass: Comment: Urinary bladder cancer [facility] Dr. Aranda. 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 After eating do not lie down, allow 3-4 hours before in lie down. And keep the head of bed above 30 degrees to avoid the acid from going up. (7) Osteoporosis: Comment: Alendronate June 2012, September 201812/2022 Code(s): M81.0 - Age-related osteoporosis without current pathological fracture Category: Medical Qualifiers: Osteoporosis type: age-related Presence of current pathological fracture: without current pathological fracture Qualified Code(s): M81.0 - Age- related osteoporosis without current pathological fracture Plan: Patient continues to follow-up with Rheumatology on alendronate patient does need bone density (8) Hyperlipidemia LDL goal <100: Code(s): E78.5 - Hyperlipidemia, unspecified Category: Medical Plan: Avoid fried foods, chicken skin, eggs, butter margarine, pastries and meat. Be it pork or beef they have a lot of cholesterol LDL goal of less than 100 and triglyceride of less than 150 (9) Essential hypertension: Code(s): I10 - Essential (primary) hypertension Category: Medical Plan: Continue with blood pressure medication. Decrease salt intake and exercise patient is on lisinopril 30 mg once a day (10) Generalized anxiety disorder: Comment: Declined any referral for counseling Code(s): F41.1 - Generalized anxiety disorder Category: Medical Plan: Continue with present medication (11) Type 2 diabetes mellitus with hyperglycemia: Code(s): E11.65 - Type 2 diabetes mellitus with hyperglycemia Category: Medical Plan: Decrease the amount of carbohydrate intake, pasta, bread, rice and potatoes are all sugar and that is aside from all the sweet stuff, remember that fruits are good but they are Sweet also. Hemoglobin A1c goal of less than 7.0 patient is under endocrinology (12) Tinnitus: Code(s): H93.19 - Tinnitus, unspecified ear Category: Medical (13) Malignant neoplasm of pancreas, unspecified: Comment: Dr. Driver, Dr. Angeles sent to Dr. 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 The patient has a history of obstructive sleep apnea, for which she uses a CPAP machine regularly, experiencing benefits from its use. She is advised to continue using the CPAP for more than 4 hours each night. In 2017, the patient underwent a pancreatectomy due to a pancreatic mass, which was malignant. She is currently under surveillance for any recurrence and plans to transfer treatment closer to home to avoid frequent travel to [place]. The patient has osteoporosis and is currently on alendronate therapy. Her last bone density scan was in December 2022, and she is due for another scan this year. The patient has a history of gastroesophageal reflux disease (GERD) and is advised to continue her current management plan. She has chronic obstructive pulmonary disease (COPD) and uses an albuterol inhaler as needed. The patient has hypercholesterolemia, with her last LDL cholesterol recorded at 73 mg/dL in August. Her cholesterol management plan includes maintaining an LDL goal of less than 100 mg/dL. The patient has an anxiety disorder and is currently on bupropion, with a request to increase the dosage to 300 mg once daily due to insufficient response at the current dose. She has hypertension and is on lisinopril 30 mg once daily, with her blood pressure being monitored regularly. 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 She was treated for contact dermatitis in January with prednisone and nidosizine. The patient has diabetes mellitus, with a recent blood sugar level of 7.7, and is under endocrinology care. She reports tinnitus, which has become constant, and a hearing test has been requested. The patient reports shoulder pain, likely due to moving furniture, and an x-ray has been requested to rule out any significant injury. Health Maintenance - Smoking cessation strongly advised - Annual physical examination conducted - Bone density scan recommended this year - Mammogram up to date as of July 2024 - Colonoscopy performed in 2021 - Pneumonia vaccination administered - Flu vaccination planned for June Social History - Smoking: Smokes about half a pack per day - Alcohol: Denies alcohol consumption - Living situation: Lives alone but recently started home sharing Review of Systems - Respiratory: Reports use of CPAP for sleep apnea, denies dyspnea - Gastrointestinal: Reports GERD, denies abdominal pain - Neurological: Reports tinnitus, denies headaches - Musculoskeletal: Reports shoulder pain, denies joint swelling Physical Exam General: Cooperative, healthy appearing, comfortable, no acute distress and well developed Orientation: Patient oriented x3 Limitations: No limitations Head: Normal to inspection Ears: Hearing grossly normal bilaterally, but patient reports constant ringing in the ears Nose: Normal external nose present Face and sinus: Normal facial exam Eyes: Appearance normal, both eyes and all related structures Neck: Normal visual inspection and Yes full ROM Respiratory: Normal respiratory effort and able to speak in complete sentences. Clear to auscultation bilaterally Cardiovascular: Regular rate and rhythm. Normal S1 and S2 GI: Normal to inspection. Soft to palpation and nontender, but patient reports lumpy stomach at the site of previous surgery Skin: No rashes or lesions noted Neuro: Patient oriented x3 Extremities: Normal to inspection, but patient reports pain in the right shoulder after moving furniture, x-ray requested Results - Labs: Normal sedimentation rate, normal renal function, normal C-reactive protein, normal liver function, normal blood count, normal platelet count - Blood sugar: 7.7 - Cholesterol: LDL 73 mg/dL (August) Plan Patient was informed and verbally consented to the use of an ambient scribe for clinic note documentation during this visit. 1. Obstructive Sleep Apnea The patient is advised to continue using the CPAP machine for more than 4 hours each night to manage her obstructive sleep apnea effectively. 2. Pancreatic Malignancy Status Post Pancreatectomy The patient is under surveillance for recurrence of pancreatic malignancy and plans to transfer treatment closer to home to reduce travel burden. 3. Osteoporosis The patient is on alendronate therapy and is due for a bone density scan this year to monitor her osteoporosis. 4. Gastroesophageal Reflux Disease (Gerd) The patient is advised to continue her current management plan for GERD. 5. Chronic Obstructive Pulmonary Disease (Copd) The patient uses an albuterol inhaler as needed for COPD management. 6. Hypercholesterolemia The patient's cholesterol management plan includes maintaining an LDL goal of less than 100 mg/dL. 7. Anxiety Disorder The patient is on bupropion and has requested an increase in dosage to 300 mg once daily due to insufficient response at the current dose. 8. Hypertension The patient is on lisinopril 30 mg once daily, and her blood pressure is being monitored regularly. 9. 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 10. Contact Dermatitis The patient was treated with prednisone and nidosizine for contact dermatitis in January. 11. Diabetes Mellitus The patient is under endocrinology care for diabetes mellitus, with a recent blood sugar level of 7.7. 12. Tinnitus A hearing test has been requested due to the patient's report of constant tinnitus. 13. Shoulder Pain An x-ray has been requested to evaluate the patient's shoulder pain, likely due to moving furniture. Discussion Notes During the visit, I discussed the importance of smoking cessation with the patient and advised her to continue using the CPAP machine for her sleep apnea. We reviewed her current medications, including the need to adjust her bupropion dosage for anxiety management. 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 We planned for a hearing test due to her tinnitus and an x-ray for her shoulder pain. The patient was informed about the need for a bone density scan and the benefits of maintaining her cholesterol and blood pressure goals. Patient Instructions - Stop smoking to improve overall health. - Use CPAP machine for more than 4 hours each night. - Continue current medications and follow up with specialists as scheduled. - Schedule a bone density scan this year. - Attend hearing test appointment for tinnitus evaluation. - Get an x-ray for shoulder pain if symptoms persist. Orders: Orders Complete Blood Count Auto Diff 3 Months . - Type 2 diabetes mellitus with hyperglycemia Creatinine Urine 3 Months E11. - Type 2 diabetes mellitus with hyperglycemia Hemoglobin A1c 3 Months E11. - Type 2 diabetes mellitus with hyperglycemia Free T4 (Free Thyroxine) 3 Months E11. - Type 2 diabetes mellitus with hyperglycemia Lipid Panel 3 Months E11. - Type 2 diabetes mellitus with hyperglycemia, E78.00 - Pure hypercholesterolemia, unspecified Vitamin B12 and Folate 3 Months E11. - Type 2 diabetes mellitus with hyperglycemia Vitamin D 25-OH Total 3 Months E11. - Type 2 diabetes mellitus with hyperglycemia XR shoulder RT min 2V Today M25.511 - Pain in right shoulder Pneumococcal 20 Immunization Today Z23 - Encounter for immunization AMB Hemoglobin A1c Today Z13.9 - Encounter for screening, unspecified Comprehensive Met. Panel 3 Months E11.65 - Type 2 diabetes mellitus with hyperglycemia Microalbumin, Random (w Creat) 3 Months E11.65 - Type 2 diabetes mellitus with hyperglycemia Thyroid Stimulating Hormone 3 Months E11.65 - Type 2 diabetes mellitus with hyperglycemia UA CC w/rflx Micro + Cult 3 Months E11.65 - Type 2 diabetes mellitus with hyperglycemia, R30.0 - Dysuria Referrals Speech and Hearing Referral H93.19 - Tinnitus, unspecified ear Medications: New bupropion HCl XL (Wellbutrin XL) 300 mg PO QAM 30 tabs 0RF
--- OUTSIDE RECORDS SUMMARY | 2025-05-31 13:41 | XMS_ITS | Encounter Summary ---
Author Organization [facility] Address [address] [place] [address] Phone Care Team Providers Care Video Game Programmer Name Role Phone Pcp, Unknown Primary Care Provider Gloria Dahl MD Primary Care Provider [phone] Reason for Referral * MRI/CAT Scan - Closed Specialty Diagnoses / Procedures Referred By Contac t Referred To Contact Radiology Diagnoses LLQ abdominal pain Abnormal findings on diagnostic imaging of liver and biliary tract Procedures MRI Pelvis (GI/) Lee Albarran MD Phone: tel: fax: mailto:[email or web address] Referral ID Status Reason Start Date Expiration Date Visits Re quested Visits Authorized [id number] Closed 04/10/2022 04/10/2023 1 1 * MRI/CAT Scan - Closed Specialty Diagnoses / Procedures Referred By Contac t Referred To Contact Radiology Diagnoses LLQ abdominal pain Abnormal findings on diagnostic imaging of liver and biliary tract Procedures MRI Cholangiopancreatography (MRCP) Lee Albarran MD Phone: tel: fax: mailto:[email or web address] Referral ID Status Reason Start Date Expiration Date Visits Re quested Visits Authorized [id number] Closed 04/10/2022 04/10/2023 1 1 Encounter Details Date Type Department Care Team (Latest Contact Info) Description 04/10/2022 Transcribe Orders Virtual Department [address] [place] [address] Julee Castrejon NP [address] [place] [address] [email or web address] LLQ abdominal pain (Primary Dx); Abnormal findings on diagnostic imaging of liver and biliary tract Social History Tobacco Use Types Packs/Day Years Used Date Smoking Tobacco: Never Assessed Comments Unknown Sex and Gender Information Value Date Recorded Sex Assigned at Not on file Legal Sex Female 9:58 AM EDT Gender Identity Not on file Sexual Orientation Not on file documented as of this encounter Plan of Treatment Not on file documented as of this encounter Results * MRI CHOLANGIOPANCREATOGRAPHY (MRCP) WITH AND WITHOUT CONTRAST (04/26/2022 11:27 AM EDT) Anatomical Region Laterality Modality Pancreas, Biliary Magnetic Reson ance 04/27/2022 10:0 4 AM EDT Impressions 04/27/2022 11:41 AM EDT -Moderate extrahepatic and mild intrahepatic bile duct dilation without discernible obstructing stone or mass. In the absence of LFT abnormalities, this is likely related to any combination of reservoir effect from prior cholecystectomy and/or ampullary stenosis/dysfunction. Consider follow-up ultrasound in 6 months to confirm stability. -No pelvic mass or evidence of acute pelvic pathology. -Prior distal pancreatectomy with expected appearance of the operative bed. This report has been forwarded to an automated communication system which will electronically notify appropriate providers of potentially important findings. Narrative 04/27/2022 11:41 AM EDT MRI CHOLANGIOPANCREATOGRAPHY (MRCP) WITH AND WITHOUT CONTRAST, MRI PELVIS WITH AND WITHOUT CONTRAST TECHNIQUE: Multiplanar MR imaging of the abdomen and pelvis was performed using T1, T2, fat saturated, and diffusion weighted techniques. 2D and 3D MRCP sequences were performed. Dynamic multiphase imaging was also performed after administration of an intravenous gadolinium contrast agent. COMPARISON: None FINDINGS: Lower Chest: Normal. No effusions. Liver: Benign cysts. No suspicious focal liver lesion. Biliary: Prior cholecystectomy. Moderate extrahepatic bile duct dilation to the level of the ampulla, with the CBD measuring up to 1.8 cm; no discernible obstructing mass or stone. Mild intrahepatic bile duct dilation. Spleen: Absent. Pancreas: Prior distal pancreatectomy. Adrenal Glands: Normal. No nodules. Kidneys/Ureters: Normal. No solid masses or hydronephrosis. Bowel: Normal. No dilatation or wall thickening. Peritoneum/Retroperitoneum: Normal. No masses or fluid. Pelvic organs: Normal appearance of the uterus. Ovaries not discretely visualized, though there is no adnexal mass. Lymph Nodes: Normal. No lymphadenopathy. Vessels: Normal. No abdominal aortic aneurysm. Bones/Soft Tissues: Normal. No focal marrow replacing lesions. Procedure Note Wayne Raymond MD - 04/27/2022 MRI CHOLANGIOPANCREATOGRAPHY (MRCP) WITH AND WITHOUT CONTRAST, MRI PELVISWITH AND WITHOUT CONTRAST TECHNIQUE: Multiplanar MR imaging of the abdomen and pelvis was performedusing T1, T2, fat saturated, and diffusion weighted techniques. 2D and 3DMRCP sequences were performed. Dynamic multiphase imaging was alsoperformed after administration of an intravenous gadolinium contrastagent. COMPARISON: None FINDINGS: Lower Chest: Normal. No effusions. Liver: Benign cysts. No suspicious focal liver lesion. Biliary: Prior cholecystectomy. Moderate extrahepatic bile duct dilationto the level of the ampulla, with the CBD measuring up to 1.8 cm; nodiscernible obstructing mass or stone. Mild intrahepatic bile ductdilation. Spleen: Absent. Pancreas: Prior distal pancreatectomy. Adrenal Glands: Normal. No nodules. Kidneys/Ureters: Normal. No solid masses or hydronephrosis. Bowel: Normal. No dilatation or wall thickening. Peritoneum/Retroperitoneum: Normal. No masses or fluid. Pelvic organs: Normal appearance of the uterus. Ovaries not discretelyvisualized, though there is no adnexal mass. Lymph Nodes: Normal. No lymphadenopathy. Vessels: Normal. No abdominal aortic aneurysm. Bones/Soft Tissues: Normal. No focal marrow replacing lesions. IMPRESSION: -Moderate extrahepatic and mild intrahepatic bile duct dilation withoutdiscernible obstructing stone or mass. In the absence of LFTabnormalities, this is likely related to any combination of reservoireffect from prior cholecystectomy and/or ampullary stenosis/dysfunction.Consider follow-up ultrasound in 6 months to confirm stability. -No pelvic mass or evidence of acute pelvic pathology. -Prior distal pancreatectomy with expected appearance of the operativebed. This report has been forwarded to an automated communication system whichwill electronically notify appropriate providers of potentially importantfindings. us Lee Albarran MD IMG MR ABDOMEN Final Result * MRI PELVIS WITH AND WITHOUT CONTRAST (04/26/2022 11:27 AM EDT) Anatomical Region Laterality Modality Pelvis Magnetic Resonan ce 04/27/2022 10:0 4 AM EDT Impressions 04/27/2022 11:41 AM EDT -Moderate extrahepatic and mild intrahepatic bile duct dilation without discernible obstructing stone or mass. In the absence of LFT abnormalities, this is likely related to any combination of reservoir effect from prior cholecystectomy and/or ampullary stenosis/dysfunction. Consider follow-up ultrasound in 6 months to confirm stability. -No pelvic mass or evidence of acute pelvic pathology. -Prior distal pancreatectomy with expected appearance of the operative bed. This report has been forwarded to an automated communication system which will electronically notify appropriate providers of potentially important findings. Narrative 04/27/2022 11:41 AM EDT MRI CHOLANGIOPANCREATOGRAPHY (MRCP) WITH AND WITHOUT CONTRAST, MRI PELVIS WITH AND WITHOUT CONTRAST TECHNIQUE: Multiplanar MR imaging of the abdomen and pelvis was performed using T1, T2, fat saturated, and diffusion weighted techniques. 2D and 3D MRCP sequences were performed. Dynamic multiphase imaging was also performed after administration of an intravenous gadolinium contrast agent. COMPARISON: None FINDINGS: Lower Chest: Normal. No effusions. Liver: Benign cysts. No suspicious focal liver lesion. Biliary: Prior cholecystectomy. Moderate extrahepatic bile duct dilation to the level of the ampulla, with the CBD measuring up to 1.8 cm; no discernible obstructing mass or stone. Mild intrahepatic bile duct dilation. Spleen: Absent. Pancreas: Prior distal pancreatectomy. Adrenal Glands: Normal. No nodules. Kidneys/Ureters: Normal. No solid masses or hydronephrosis. Bowel: Normal. No dilatation or wall thickening. Peritoneum/Retroperitoneum: Normal. No masses or fluid. Pelvic organs: Normal appearance of the uterus. Ovaries not discretely visualized, though there is no adnexal mass. Lymph Nodes: Normal. No lymphadenopathy. Vessels: Normal. No abdominal aortic aneurysm. Bones/Soft Tissues: Normal. No focal marrow replacing lesions. Procedure Note Wayne Raymond MD - 04/27/2022 MRI CHOLANGIOPANCREATOGRAPHY (MRCP) WITH AND WITHOUT CONTRAST, MRI PELVISWITH AND WITHOUT CONTRAST TECHNIQUE: Multiplanar MR imaging of the abdomen and pelvis was performedusing T1, T2, fat saturated, and diffusion weighted techniques. 2D and 3DMRCP sequences were performed. Dynamic multiphase imaging was alsoperformed after administration of an intravenous gadolinium contrastagent. COMPARISON: None FINDINGS: Lower Chest: Normal. No effusions. Liver: Benign cysts. No suspicious focal liver lesion. Biliary: Prior cholecystectomy. Moderate extrahepatic bile duct dilationto the level of the ampulla, with the CBD measuring up to 1.8 cm; nodiscernible obstructing mass or stone. Mild intrahepatic bile ductdilation. Spleen: Absent. Pancreas: Prior distal pancreatectomy. Adrenal Glands: Normal. No nodules. Kidneys/Ureters: Normal. No solid masses or hydronephrosis. Bowel: Normal. No dilatation or wall thickening. Peritoneum/Retroperitoneum: Normal. No masses or fluid. Pelvic organs: Normal appearance of the uterus. Ovaries not discretelyvisualized, though there is no adnexal mass. Lymph Nodes: Normal. No lymphadenopathy. Vessels: Normal. No abdominal aortic aneurysm. Bones/Soft Tissues: Normal. No focal marrow replacing lesions. IMPRESSION: -Moderate extrahepatic and mild intrahepatic bile duct dilation withoutdiscernible obstructing stone or mass. In the absence of LFTabnormalities, this is likely related to any combination of reservoireffect from prior cholecystectomy and/or ampullary stenosis/dysfunction.Consider follow-up ultrasound in 6 months to confirm stability. -No pelvic mass or evidence of acute pelvic pathology. -Prior distal pancreatectomy with expected appearance of the operativebed. This report has been forwarded to an automated communication system whichwill electronically notify appropriate providers of potentially importantfindings. Lee Albarran MD IMG MR PELVIS Final Result documented in this encounter Visit Diagnoses Diagnosis LLQ abdominal pain- Primary Abdominal pain, left lower quadrant Abnormal findings on diagnostic imaging of liver and biliary tract LLQ abdominal pain Abdominal pain, left lower quadrant Abnormal findings on diagnostic imaging of liver and biliary tract LLQ abdominal pain Abdominal pain, left lower quadrant Abnormal findings on diagnostic imaging of liver and biliary tract documented in this encounter Care Teams Video Game Programmer Relationship Specialty Start Date End Date Pcp, Unknown PCP - General 04/10/22 04/14/22 Po, Gloria Taylor MD [address] [place] [address] [id number] PCP - General Internal Medicine 04/15/22 documented as of this encounter Additional Source Comments The information contained in this document represents components of the legal health record. It is not the complete legal health record.[facility]
--- OUTSIDE RECORDS SUMMARY | 2025-05-31 13:41 | XMS_ITS | Patient Health Record ---
Author Organization [facility] Lor Gramajoley Address [address] [place] [address] Care Team Providers Care Racebook Writer Name Role Phone PhilMichelleovidio Primary Care Provider Unavailabl e Black, Chelsie Unavailable [phone] Allergies Allergen (clinical drug ingredient) Drug/Non Drug Allergy documented on EMR Reaction Allergy Type Onset Date Status azathioprine Imuran Unknown Drug Allergy Acti ve infliximab Remicade rash Drug Allergy Active dexamethasone Dexamethasone blood pressure goes up Drug Allergy Active etanercept Etanercept hives,welt,itc jay jay Drug Allergy Active nickel Nickel Unknown Allergy Active Results Component Value Reference Range Notes HEMOGLOBIN A1C (GLYCOHEMOGLO BIN) Reviewed date:11/15/2024 08:00:00 AM Interpretation: Performing Lab: Notes/Report: HEMOGLOBIN A1C % (HH) 8.3 Reason For Referral No Information Medications Medication SIG (Take, Route, Frequency, Duration) Notes Start Date End Date Status Extra Depth Orthopedic Shoes (1 Pair) with Customized Heat Molded Multidensity Innersoles (3 Pair) as directed Dx: IDDM/Polyneuropathy (E10.42), Hammertoe Foot Deformity (M20.41,M20.42), Preulcerative Skin Lesion(s) (L85.1) 02/21/2025 Active Prednisone 1 tab Oral; Duration : 14 days Not-Taking Extra Depth Orthopedic Shoes [...] Cefdinir 300 MG as directed Orally Not-Taking Calcium Active Clindamycin HCl 300 MG 2 capsules Orally every 8 hrs; Duration: 10 day(s) 03/22/2021 Not-Taking Vitamin C Active predniSONE 20 MG 3 tablet Orally Once a day Not-Taking zzzCompression Stockings 20-30mm Hg . . .; Duration: . Active Remicade Not-Taking Atorvastatin Calcium 20 MG Orally Active buPROPion HCl 100 MG 1 tablet Orally Twi ce a day; Duration: 30 day(s) Not-Taking Biotin Active Ibuprofen Not-Taking Cimzia Active Humira Not-Taking Fish Oil Active HumaLOG Active Alendronate Sodium 70 MG 1 tablet Orally ; Duration: 30 day(s) Not-Taking LORazepam 1 MG 1 tablet at bedtime as needed Orally Once a day PRN Not-Taking Multivitamin Active Colcrys Not-Taking Omeprazole PRN Active predniSONE Not-Takin g Extra Depth Orthopedic Shoes (1 Pair) with Customized Heat Molded Multidensity Innersoles (3 Pair) as directed Dx: IDDM/Polyneuropathy (E10.42), Hammertoe Foot Deformity (M20.41,M20.42), Preulcerative Skin Lesion(s) (L85.1) 12/01/2023 Active Allergy Not-Taking Ammonium Lactate 12 % 1 application Externally to affected areas of dry skin to feet except for between the toes Twice a day; Duration: 30 days Active EpiPen 2-Cj Not-Demar ing Cranberry Not-Taking Fosamax Not-Taking Estradiol 0.1 MG/GM Vaginal; Duration: 90 Not-Taking Calcium Not-Taking Lantus Not-Taking Vitamin D Not-Taking Extra Depth Orthopedic Shoes (1 Pair) with Customized Heat Molded Multidensity Innersoles (3 Pair) as directed Dx: NIDDM/Polyneuropathy (E11.42), Hammertoe Foot Deformity (M20.41,M20.42), Preulcerative Skin Lesion(s) (L85.1 12/17/2021 Not-Taking zzzCompression Stockings 20-30mm Hg . . .; Duration: . Not-Takin g Aspir-81 Not-Taking Immunizations Vaccine Route Administration Date Status Comme nts Influenza Unknown 10/23/2018 Administered Influenza Unknown 05/24/2019 Administered Influenza Unknown 04/24/2020 Administered Influenza Unknown 05/23/2022 Administered Influenza Unknown 06/23/2023 Administered COVID-19 Moderna Vaccine Unknown 11/23/2020 Administere d 1st 10/26/20 Social History Tobacco Use: Social History Observation [...] Problem Acquired hammer toe of right foot ([id number] ) Other hammer toe(s) (acquired), right foot (M20.41) Active confirmed Problem Acquired hammer toe of left foot ([id number] ) Other hammer toe(s) (acquired), left foot (M20.42) Active confirmed Problem Polyneuropathy due to diabetes mellitus type I (189905549) Type 1 diabetes mellitus with diabetic polyneuropathy (E10.42) Active confirmed Vital Signs Blood pressure diastolic 63 mm Hg 02/21/2025 Height 5ft2in in 02/21/2025 Blood pressure systolic 120 mm Hg 02/21/2025 Weight 160 lbs 02/21/2025 BMI 29.26 kg/m2 02/21/2025 Procedures Procedure Date Ordered Date Performed Result Body Sit e 03347-LSOPEJY NAIL, 6 OR MORE 08/12/2024 N/A 82697-NDTX SKIN LESIONS, 2 TO 4 08/12/2024 N/A 38324-ZTDIFIA NAIL, 6 OR MORE 11/15/2024 N/A 32716-Tkvuckbc Plate 11/15/2024 N/A 46209-UPJP SKIN LESIONS, 2 TO 4 11/15/2024 N/A 81983-QRDXZIP NAIL, 6 OR MORE 02/21/2025 N/A 80989-JAHK SKIN LESIONS, 2 TO 4 02/21/2025 N/A Encounters Encounter Location Date Provider Diagnosis [address] [address] 08/12/2024 Chelsie Li Neuralgia and neuritis, unspecified M79.2 ; Type 1 diabetes mellitus with diabetic polyneuropathy E10.42 ; Tinea unguium B35.1 and Neuropathy G62.[address] [address] 11/15/2024 Chelsie Li Type 1 diabetes mellitus with diabetic polyneuropathy E10.42 ; Tinea unguium B35.1 ; Ingrown nail L60.0 and Xerosis of skin L85.[address] [address] 02/21/2025 Chelsie Li Type 1 diabetes mellitus with diabetic polyneuropathy E10.42 ; Other hammer toe(s) (acquired), right foot M20.41 ; Tinea unguium B35.1 ; Xerosis of skin L85.3 and Other hammer toe(s) (acquired), left foot M20.[address] [address] 04/19/2025 Chelsie Li Assessments Encounter Date Diagnosis (ICD Code) Assessment Notes Treatment Notes Treatment Clinical Notes Section Notes 08/12/2024 Neuralgia and neuritis, unspecified (ICD-10 - M79.2) 08/12/2024 Type 1 diabetes mellitus with diabetic polyneuropathy (ICD-10 - E10.42) 11/15/2024 Type 1 diabetes mellitus with diabetic polyneuropathy (ICD-10 - E10.42) 02/21/2025 Other hammer toe(s) (acquired), right foot (ICD-10 - M20.41) Patient Educated with: DIABETIC FOOT CARE INSTRUCTIONS. pdf (DIABETIC FOOT CARE INSTRUCTIONS. pdf) 02/21/2025 Type 1 diabetes mellitus with diabetic polyneuropathy (ICD-10 - E10.42) 02/21/2025 Tinea unguium (ICD-10 - B35.1) 08/12/2024 Tinea unguium (ICD-10 - B35.1) 11/15/2024 Tinea unguium (ICD-10 - B35.1) 02/21/2025 Xerosis of skin (ICD-10 - L85.3) 11/15/2024 Ingrown nail (ICD-10 - L60.0) 08/12/2024 Neuropathy (ICD-10 - G62.9) 11/15/2024 Xerosis of skin (ICD-10 - L85.3) 02/21/2025 Other hammer toe(s) (acquired), left foot (ICD-10 - M20.42) Plan Of Treatment Pending Test Test Name Order Date 12262-SZCTHTC NAIL, 6 OR MORE 02/04/2019 58628-VOIGVYX NAIL, 6 OR MORE 05/06/2019 75910-WXSQSHM NAIL, 6 OR MORE 08/09/2019 68756-OVNHFIV NAIL, 6 OR MORE 11/04/2019 96809-JFMHRHC NAIL, 6 OR MORE 02/10/2020 36279-FPYDJPO NAIL, 6 OR MORE 05/15/2020 07795-UODKNAO NAIL, 6 OR MORE 08/21/2020 64954-FZHZEOC NAIL, 6 OR MORE 11/20/2020 71170-CDCSKOF NAIL, 6 OR MORE 03/22/2021 69368-KWXXRVM NAIL, 6 OR MORE 07/05/2021 96660-EMGEILW NAIL, 6 OR MORE 09/20/2021 00445-QSDQSPA NAIL, 6 OR MORE 12/17/2021 31474-CVPDRGU NAIL, 6 OR MORE 03/04/2022 08633-NIJWBIP NAIL, 6 OR MORE 05/16/2022 68311-SRDDYQD NAIL, 6 OR MORE 07/22/2022 51527-IPSRAWE NAIL, 6 OR MORE 10/31/2022 84035-COPXNDB NAIL, 6 OR MORE 01/09/2023 54140-KJGRKTZ NAIL, 6 OR MORE 03/20/2023 62228-HNSBFEL NAIL, 6 OR MORE 06/09/2023 33952-NMARNLY NAIL, 6 OR MORE 08/25/2023 06326-PCKGSAK NAIL, 6 OR MORE 12/01/2023 41566-HZUJDEP NAIL, 6 OR MORE 02/04/2024 88785-VVCWUWW NAIL, 6 OR MORE 05/07/2024 13589-XYFJPKI NAIL, 6 OR MORE 08/12/2024 87797-BSNYPAA NAIL, 6 OR MORE 11/15/2024 59719-GDXSJBU NAIL, 6 OR MORE 02/21/2025 47327-ZUWCPLS NAIL, 1-5 02/20/2015 26537-Tmiqrqcx Plate 08/09/2019 72058-Vpqvzdzc Plate 12/17/2021 11922-Njcrsmhf Plate 05/15/2020 52309-Kbvntjuf Plate 11/20/2020 36992-Dwbzyqws Plate 12/01/2023 02633-Hevpxskz Plate 10/31/2022 78094-Acardslu Plate 07/05/2021 92306-Wqwavljn Plate 11/15/2024 90198-Tynhdqkd Plate Each Additional 05/2023 03523-Cublhxjm Plate Each Additional 07/2024 24579-Zspajxot Plate Each Additional 01332-Mykibxzd Plate Each Additional 12147- Debride <25 sq cm 06/09/2023 55700 I&D ABSCESS- SIMPLE,SINGLE 024 50342-OFOY SKIN LESIONS, OVER 4 06/09/20 23 04155-UIQY SKIN LESIONS, OVER 4 08/25/20 84629-EIWV SKIN LESIONS, OVER 4 01/10/20 23 41906-DBVK SKIN LESIONS, OVER 4 03/20/20 23 98084-RBWI SKIN LESIONS, 2 TO 4 10/31/19 15950-ETCS SKIN LESIONS, 2 TO 4 07/22/20 22 40788-YNDF SKIN LESIONS, 2 TO 4 05/16/20 07134-OKSM SKIN LESIONS, 2 TO 4 02/04/20 24 70566-CAIQ SKIN LESIONS, 2 TO 4 12/01/19 26648-FYQU SKIN LESIONS, 2 TO 4 06/02/20 25 44028-BGNE SKIN LESIONS, 2 TO 4 11/15/19 25 78460-BJEF SKIN LESIONS, 2 TO 4 08/12/20 24 64570-EINI SKIN LESIONS, 2 TO 4 05/07/20 24 51281-EDLS SKIN LESIONS, 2 TO 4 08/09/20 80210-TWII SKIN LESIONS, 2 TO 4 02/05/20 19 28188-EXST SKIN LESIONS, 2 TO 4 05/06/20 45061-APBX SKIN LESIONS, 2 TO 4 08/21/20 26497-DBHH SKIN LESIONS, 2 TO 4 05/15/20 17963-PJPT SKIN LESIONS, 2 TO 4 02/10/20 19014-SNNE SKIN LESIONS, 2 TO 4 11/04/19 08432-DBNY SKIN LESIONS, 2 TO 4 03/04/20 00034-LHRH SKIN LESIONS, 2 TO 4 12/18/19 07930-IRDV SKIN LESIONS, 2 TO 4 09/20/20 45234-NKKZ SKIN LESIONS, 2 TO 4 11/21/19 23054-KNPE SKIN LESIONS, 2 TO 4 07/05/20 93816-PYKV SKIN LESIONS, 2 TO 4 03/22/20 24579- Removal of Foreign Body, Subcut 0 02/04/2024 Next Appt Details Provider Name:Chelsie Li , 06/02/2025 08:00:00 AM, [address] [place], [address], Insurance Providers Payer Name Payer Address Payer Phone Subscriber Number Group Number Insured Name Patient Relationship to Insured Coverage Start Date Coverage End Date Medicare [employer] [address] [place] [address] [id number] Ana Childress Self - patient is the insured [facility] [address] [place] [address] [id number] Ana Childress Self - patient is the insured Medical (General) History Medical History History ICD Code Anxiety Arthritis Cataracts Neuropathy Mumps Chicken pox Back,Hip,and Knee pain CAD (Cholesterol) Cancer Depression Diabetes mellitus Numbness Osteoporosis Reflux ( GERD) Stomach ulcer Urinary tract infections Other hammer toe(s) (acquired), right fo ot M20.41 Other hammer toe(s) (acquired), left shelia t M20.42 Hallux valgus (acquired), right foot M20 .11 Arthritis of joint of lesser toe, left M 19.072 Arthritis M19.90 Neuropathy G62.9 Surgical History Surgery Date(Month/Year) Both legs [facility] surgery & 04/2014 removed galbladder 11/05/2016 spline removal broken leg required surgery 07/2019 bladder cancer 08/2021 biopsy done on leg, infectio n, traveled from leg to ankle- jian right leg 05/29/24 Hospitalization History Reason Date(Month/Year) [facility]- Was on Pre dnisone for swelling feet and legs- 2 nights 12/10/2021 [facility] - Hospitalized f or feet/Leg swelling-Left hospital because was on bed in hallway 22 hrs 11/2021 [facility] bladder cancer treatments-Ended 11/2910/25/2021
--- OUTSIDE RECORDS SUMMARY | 2025-05-31 13:41 | XMS_ITS | Encounter Summary ---
Author Organization [facility] Address [address] [place] [address] Phone Care Team Providers Care Stock Grader Name Role Phone Gloria Villarreal MD Primary Care Provider [phone] Encounter Details Date Type Department Care Team (Late st Contact Info) Description 07/08/2022 Procedure Pass [facility] Endoscopy Admitting Dept Virtual Department [address] [place] [address] Social History Tobacco Use Types Packs/Day Years Used Date Smoking Tobacco: Some Days Smokeless Tobacco: Never Comments:few cigarettes a fe w days a week Alcohol Use Standard Drinks/Week Comments Not Currently 0 (1 standard drink = 0.6 oz pur e alcohol) Comments Unknown Sex and Gender Information Value Date Recorded Sex Assigned at Not on file Legal Sex Female 9:58 AM EDT Gender Identity Not on file Sexual Orientation Not on file documented as of this encounter Plan of Treatment Not on file documented as of this encounter Visit Diagnoses Not on filedocumented in this encounter Care Teams Stock Grader Relationship Specialty Start Date End Date Gloria Villarreal MD [address] [place] [id number] PCP - General Internal Medicine 04/15/22 documented as of this encounter Additional Source Comments The information contained in this document represents components of the legal health record. It is not the complete legal health record.[facility]
--- OUTSIDE RECORDS SUMMARY | 2025-05-31 13:41 | XMS_ITS | Clinical Summary ---
Author Organization [facility] Address [address] [place] [address] Phone Care Team Providers Care Distribution Designer Name Role Phone Gloria Villarreal MD Primary Care Provider [phone] Allergies Active Allergy Reactions Criticality Noted Date Comments Amoxicillin Hives 07/05/2022 Azathioprine 07/05/2022 Dexamethasone 05/16/2022 Other reaction(s): blood pressure goes up Etanercept 07/05/2022 Levofloxacin Hives 07/05/2022 Nickel 07/05/2022 Penicillins 07/05/2022 Infliximab 07/05/2022 Tramadol Dizziness,Nausea and /or Vomiting 07/05/2022 Medications atorvastatin (LIPITOR) 20 MG tablet Take 20 mg by mouth daily. 2 Active CHOLECALCIFERO L 10 mcg (400 unit) tablet Take 800 Units by mouth daily. 2 Active docusate sodium (COLACE) 100 MG capsule Take 100 mg by mouth 2 (two) times a day. 2 Active lisinopril (PRINIVIL,ZEST RIL) 5 MG tablet Take 5 mg by mouth daily. 2 Active HUMALOG KWIKPEN INSULIN 100 unit/mL kwikpen INJECT 5-12 UNITS SUBCUTANEOUSLY 3 TIMES A DAY 2 Active LORazepam (ATIVAN) 1 MG tablet 1 MG ORALLY DAILY NEEDED FOR ANXIETY FOR 30 DAYS 2 Active insulin glargine 100 unit/mL (3 mL) InPn injection pen Inject 14 Units under the skin nightly at bedtime. Active certolizumab pegol (CIMZIA) 400 mg (200 mg x 2 vials) Kit Inject 400 mg under the skin every 30 (thirty) days. Active omeprazole (PRILOSEC) 40 MG capsule Take 40 mg by mouth. Active Social History Tobacco Use Types Packs/Day Years [...] on file Sexual Orientation Not on file Last Filed Vital Signs Vital Sign Reading Time Taken Comments Blood Pressure 142/80 07/08/2022 9:47 AM EDT Pulse 79 07/08/2022 9:47 AM EDT Temperature 36.1 C (97 F) 07/08/2022 9:28 AM EDT Respiratory Rate 16 07/08/2022 9:47 AM EDT Oxygen Saturation 98% 07/08/2022 9:47 AM EDT Inhaled Oxygen Concentration - - Weight 71.7 kg (158 lb) 07/05/2022 2:29 PM EDT Height 157.5 cm (5' 2 ) 04/24/2022 7:29 PM EDT Body Mass Index 28.9 04/24/2022 7:29 PM EDT Plan of Treatment Health Maintenance Due Date Last Done Comments LIPID PANEL 1954 DEPRESSION SCREENING 1966 SMOKING Hx and SMOKELESS TOBACCO SCREENING 1967 HEPATITIS C SCREENING 01/27/1972 MAMMOGRAM 1994 COLOGUARD 1999 FIT TEST 1999 FOBT 1999 SIGMOIDOSCOPY 1999 VIRTUAL COLONOSCOPY 1999 RSV VACCINE (1 - Risk 60-74 years 1-dose series) 2014 OSTEOPOROSIS SCREENING INITIAL (ONE-TIME) 2019 PNEUMOCOCCAL VACCINES (50+ years) (3 of 3 - PPSV23, PCV20 or PCV21) 11/11/2022 11/11/2017, 11/11/2017 CREATININE LEVEL 04/10/2023 04/10/2022 POTASSIUM LEVEL 04/10/2023 04/10/2022 INFLUENZA VACCINE (#1) 2025 2, 06/09/2021, 04/24/2020, Additional history exists COVID-19 VACCINE ( season) 2025 09/06/2021, 11/23/2020, 10/26/2020 Adult Td,Tdap Booster 06/04/2031 06/04/2021, 013 COLONOSCOPY 07/08/2032 07/08/2022 COLORECTAL CANCER SCREENING 07/08/2032 HIB VACCINES Aged Out 11/11/2017 No longer eligi ble based on patient's age to complete this topic MENINGOCOCCAL VACCINES (ACWY) Aged Out 11/11/2017 No longer eligible based on patient's age to complete this topic MENINGOCOCCAL VACCINES (B) Aged Out 11/11/2017 N o longer eligible based on patient's age to complete this topic ZOSTER VACCINES Completed 05/08/2021, 01/22/2021 HEPATITIS A VACCINES Aged Out No long er eligible based on patient's age to complete this topic Medical Devices Implanted Type Area Stemming Machine Operator Device Identifier Shelf Expiration Date Model / Serial / Lot R Knee Pin Procedures Procedure Name Priority Date/Time Associated Diagnosis Comments ENDOSCOPY, COLON 07/08/2022 8:59 AM EDT COMPREHENSIVE METABOLIC PANEL Routine 04/10/2022 10:16 AM EDT Abdominal pain, unspecified abdominal location Abnormal findings on diagnostic imaging of liver and biliary tract from Last 3 Months or Most Recently Relevant to Health Maintenance Results * ENDOSCOPY, COLON (07/08/2022 8:59 AM EDT) Narrative Transcriptions Deion, Giuliano R, MD - 07/08/2022 8:59 AM EDT Patient Name: Ana Barajas Attending MD:: GIULIANO CHRISTENSEN MD Procedure Date: 07/08/2022 8:59 AM Date of : 1955 Age: 67 Admit Type: Outpatient Gender: Female Room: [place] [address] Referring MD: Gloria Villarreal MD Exam Type: Colonoscopy Indications: Colon cancer screening in patient at [facility]: Colorectal cancer in brother, Last colonoscopy 5years ago Medications: Propofol per Anesthesia Procedure: Informed consent was obtained from the patientafter discussion of the indications, limitations, alternatives, benefits, and risks of the procedure. Risks specifically discussed include but are not limited to medication reactions, missed lesions, bleeding, perforation, or the need for emergent surgery. Throughout the procedure, the patient's blood pressure, pulse, end-tidal CO2, and oxygensaturations were monitored continuously. The Olympus adult variable colonoscope [id number] #3 was introduced through the anus and advanced to the cecum, identified by appendiceal orifice andileocecal valve. The colonoscopy was performed without difficulty. The patient tolerated the procedurefairly well. The quality of the bowel preparation wasgood. The ileocecal valve, appendiceal orifice, andrectum were photographed. Complications: No immediate complications. Estimated blood loss:None. Findings: The perianal and digital rectal examinations were normal. Pertinent negatives include normalsphincter tone. Many small and large-mouthed diverticula were foundin the sigmoid colon, descending colon and transverse colon. Retroflexion in the right colon was performed. The exam was otherwise without abnormality ondirect and retroflexion views. Impression: - Diverticulosis in the sigmoid colon, in the descending colon and in the transverse colon. - The examination was otherwise normal on directand retroflexion views. - No specimens collected. Recommendation: - Repeat colonoscopy in 7 years for screeningpurposes. GIULIANO CHRISTENSEN MD 07/08/2022 9:29:01 AM This report has been signed electronically. Number of Addenda: 0 Note Initiated On: 07/08/2022 8:59 AM Procedure Code(s): --- Professional --- G0105, Colorectal cancer screening; colonoscopy on individual at high risk --- Technical --- G0105, Colorectal cancer screening; colonoscopy on individual at high risk Diagnosis Code(s): --- Professional --- Z80.0, Family history of malignant neoplasm of digestive organs K57.30, Diverticulosis of large intestine without perforation or abscess without bleeding --- Technical --- Z80.0, Family history of malignant neoplasm of digestive organs K57.30, Diverticulosis of large intestine without perforation or abscess without bleeding CPT copyright 2020 [employer]. All rights reserved. The codes documented in this report are preliminary and upon invoice coder reviewmay be revised to meet current compliance requirements. Procedure Date: 07/08/2022 8:59:[address] [place] [address] Gloria Villarreal MD GI PROCEDURE ORDERABLES Final Result * (ABNORMAL) Comprehensive metabolic panel (04/10/2022 10:16 AM EDT) SODIUM 139 133 - 146 mmol/L [facility] POTASSIUM 4.1 3.3 - 5.1 mmol/L [facility] CHLORIDE 102 96 - 108 mmol/L [facility] CO2 27 21 - 35 mmol/L [facility] BUN 11 6 - 19 mg/dL [facility] CREATININE 0.60 0.5 - 1.5 mg/dL [facility] GLUCOSE 161(H) 70 - 99 mg/dL [facility] ALBUMIN 4.6 3.9 - 4.8 g/dL [facility] TOTAL PROTEIN 7.2 6.5 - 8.0 g/dL [facility] CALCIUM 9.6 8.4 - 10.3 mg/dL [facility] ALKALINE PHOSPHATASE 87 39 - 117 U/L [facility] TOTAL BILIRUBIN 0.2 0.0 - 1.2 mg/dL [facility] AST 21 0 - 37 U/L [facility] ALT 20 0 - 40 U/L [facility] GLOBULIN 2.6 1 - 4.8 g/dL [facility] EGFR 98 >59 mL/min/1.7 3m2 [facility] Comment:Estimated glomerular filtration rate calculated using the CKD-EPI refit equation. ANION GAP 14 10 - 20 mmol/L [facility] Blood 04/10/2022 10:1 6 AM EDT 04/10/2022 10:21 AM EDT Julee Castrejon NP LAB BLOOD ORDERABLES Final Result [facility] [address] [place] [address] from Last 3 Months or Most Recently Relevant to Health Maintenance Insurance MEDICARE PART A & B [employer] MED[employer] ENHANCE SUPPLEMENT MEDICARE PART A & B [employer] ENHANCE SUPPLEMENT MEDICARE PART A & B [facility] MEDICARE ENHANCE SUPPLEMENT MEDICARE PART A & B [facility] MEDICARE ENHANCE SUPPLEMENT MEDICARE PART A & B MEDICARE ENHANCE SUPPLEMENT MEDICARE PART A & B [facility] MEDICARE ENHANCE SUPPLEMENT MEDICARE PART A & B [facility] MEDICARE ENHANCE SUPPLEMENT MEDICARE PART A & B [facility] MEDICARE ENHANCE SUPPLEMENT MEDICARE PART A & B [employer] MEDIC[employer] ENHANCE SUPPLEMENT Care Teams Distribution Designer Relationship Specialty Start Date End Date Gloria Villarreal MD [address] [place] [phone] PCP - General Internal Medicine 04/15/22 Additional Source Comments The information contained in this document represents components of the legal health record. It is not the complete legal health record.[facility]
--- OUTSIDE RECORDS SUMMARY | 2025-05-31 13:41 | XMS_ITS | Encounter Summary ---
Author Organization [facility] Address [address] [place] [address] Phone Care Team Providers Care Legal Investigator Name Role Phone Gloria Villarreal MD Primary Care Provider [phone] Encounter Details Date Type Department Care Team (Latest Contact Info) Description 01/02/2023 Transcribe Orders Virtual Department [address] [place] [address] Julee Castrejon NP [address] [place] [address] [email or web address] Abnormal findings on diagnostic imaging of liver and biliary tract (Primary Dx) Social History Tobacco Use Types Packs/Day Years [...] documented as of this encounter Visit Diagnoses Diagnosis Abnormal findings on diagnostic imaging of liver and biliary tract- Primary documented in this encounter Care Teams Legal Investigator Relationship Specialty Start Date End Date Gloria Villarreal MD [address] [place] [address] PCP - General Internal Medicine 04/15/22 documented as of this encounter Additional Source Comments The information contained in this document represents components of the legal health record. It is not the complete legal health record.[facility]
--- OUTSIDE RECORDS SUMMARY | 2025-05-31 13:41 | XMS_ITS | Clinical Summary ---
Author Organization [facility] Address [address] [place] [address] Care Team Providers Care Gun Profiler Name Role Phone Destin Holt MD Primary Care Provider Unavaila ble Social History Tobacco Use Types Packs/Day Years Used Date Smoking Tobacco: Never Assessed Comments Unknown Sex and Gender Information Value Date Recorded Sex Assigned at Not on file Legal Sex Female 18:50 EST Gender Identity Not on file Sexual Orientation Not on file Plan of Treatment Health Maintenance Due Date Last Done Comments Hepatitis C Screen 1955 Fall Risk Screening 2019 COVID-19 Vaccine (2023- season) 2024 RSV Immunization ( o r 60+ Years) (1 - 1-dose 75+ series) 2029 Care Teams Gun Profiler Relationship Specialty Start Date End Date Destin Holt MD [address] [facility] [place] [address] PCP - General 06/05/10
--- OUTSIDE RECORDS SUMMARY | 2025-05-31 13:41 | XMS_ITS | Encounter Summary ---
Author Organization [facility] Address [address] [place] [address] Phone Care Team Providers Care Warehouse Packer Name Role Phone Pcp, Unknown Primary Care Provider Unavailaminata e Gloria Villarreal MD Primary Care Provider [phone] Encounter Details Date Type Department Care Team (Late st Contact Info) Description 04/10/2022 Procedure Pass [address] [place] [address] Social History Tobacco Use Types Packs/Day Years [...] on filedocumented in this encounter Care Teams Warehouse Packer Relationship Specialty Start Date End Date Pcp, Unknown PCP - General 04/10/22 04/14/22 Gloria Villarreal MD [address] [place] [address] PCP - General Internal Medicine 04/15/22 documented as of this encounter Additional Source Comments The information contained in this document represents components of the legal health record. It is not the complete legal health record.[facility]
--- OUTSIDE RECORDS SUMMARY | 2025-05-31 13:41 | XMS_ITS | Encounter Summary ---
Author Organization [facility] Address [address] [place] [address] Phone Care Team Providers Care Batchmaker Name Role Phone Pcp, Unknown Primary Care Provider Unavailaminata e Gloria Villarreal MD Primary Care Provider [phone] Encounter Details Date Type Department Care Team (Late st Contact Info) Description 04/10/2022 Procedure Pass [address] [place] [address] Social History Tobacco Use Types Packs/Day Years [...] on filedocumented in this encounter Care Teams Batchmaker Relationship Specialty Start Date End Date Pcp, Unknown PCP - General 04/10/22 04/14/22 Gloria Villarreal MD [address] [place] [address] PCP - General Internal Medicine 04/15/22 documented as of this encounter Additional Source Comments The information contained in this document represents components of the legal health record. It is not the complete legal health record.[facility]
== END 2025-05-31 12:40 | disposition home or self-care (01) ==
PROVIDERS: PCP Internal Medicine; Visit Provider Internal Medicine
DX: Z00.00 Encounter for general adult medical examination without abnormal findings (principal); J43.9 Emphysema, unspecified; E11.65 Type 2 diabetes mellitus with hyperglycemia; C25.9 Malignant neoplasm of pancreas, unspecified; D3A.8 Other benign neuroendocrine tumors; Z72.0 Tobacco use; G47.33 Obstructive sleep apnea (adult) (pediatric); N32.89 Other specified disorders of bladder; K21.9 Gastro-esophageal reflux disease without esophagitis; E78.5 Hyperlipidemia, unspecified; I10 Essential (primary) hypertension; Z23 Encounter for immunization

== ENCOUNTER → 2025-05-31 11:18 | Outpatient (BNVA) | payer MEDICARE, OTHER, SELFPAY | PROVIDERS: PCP Internal Medicine; Visit Provider Internal Medicine | DX: Z00.00 Encounter for general adult medical examination without abnormal findings (principal); G47.33 Obstructive sleep apnea (adult) (pediatric); J43.9 Emphysema, unspecified; N32.89 Other specified disorders of bladder; K21.9 Gastro-esophageal reflux disease without esophagitis; M81.0 Age-related osteoporosis without current pathological fracture; E78.5 Hyperlipidemia, unspecified; I10 Essential (primary) hypertension; F41.1 Generalized anxiety disorder; E11.65 Type 2 diabetes mellitus with hyperglycemia; H93.19 Tinnitus, unspecified ear; C25.9 Malignant neoplasm of pancreas, unspecified; M25.511 Pain in right shoulder; D3A.8 Other benign neuroendocrine tumors; E78.00 Pure hypercholesterolemia, unspecified; M35.2 Behcet's disease; L25.9 Unspecified contact dermatitis, unspecified cause; Z23 Encounter for immunization; Z72.0 Tobacco use | CPT/HCPCS: 83036; 90471; 90677; 96127; 99397 ==

== ENCOUNTER 2025-06-02 10:12 | Outpatient (REF) | payer MEDICARE, OTHER, SELFPAY ==
--- OUTSIDE RECORDS SUMMARY | 2012-04-01 | XMS_ITS | Encounter Summary ---
Author Organization [facility] Address [address] [place] [phone] Phone Care Team Providers Care Haz Tech Name Role Phone Unavailable Primary Care Provider Unavailabl e Encounter Details Date Type Department Care Team (Late st Contact Info) Description 04/01/2012 Hospital Encounter [facility],Outside Imaging [address] [place] [address] Unknown, Unknown, Social History Tobacco Use Types [...] is not the complete legal health record.[facility]
--- OUTSIDE RECORDS SUMMARY | 2013-08-27 01:00 | XMS_ITS | Encounter Summary ---
Author Organization [facility] Address [address] [place] [address] Phone Care Team Providers Care Jewel Corner Brushing Machine Operator Name Role Phone Unavailable Primary Care Provider Unavailabl e Encounter Details Date Type Department Care Team (Late st Contact Info) Description 08/27/2013 Hospital Encounter [facility],Outside Imaging [address] [place], [place] [phone] Unknown, Unknown, Social History Tobacco Use Types [...] It is not the complete legal health record.[facility]
--- NOTE | ~2025-06-02 | XR_ITS ---
EXAMINATION: XR SHOULDER, RIGHT CLINICAL INFORMATION: M25.511 - Pain in right shoulder COMPARISON: None available. TECHNIQUE: AP external rotation, Grashey, scapular Y, and axillary views of the right shoulder. FINDINGS: There is minimal degenerative changes AC joint. There is no AC joint separation. There is likely a subacromial spur. Small marginal osteophyte are present involving humeral head and glenoid. There is also central osteophyte involving the inferomedial humeral head. The joint is not dislocated. 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 Probable subacromial spur. Electronically signed by: Bony Soto MD 06/02/2025 11:05 AM EDT
--- OUTSIDE RECORDS SUMMARY | 2025-06-02 12:26 | XMS_ITS | Encounter Summary ---
Author Organization [facility] Address [address] [place] [address] Phone Care Team Providers Care Inspector Government Property Name Role Phone Pcp, Unknown Primary Care Provider Unavailaminata e Gloria Villarreal MD Primary Care Provider Encounter Details Date Type Department Care Team (Late st Contact Info) Description 04/10/2022 Procedure Pass [address] [place] [address] Social History Tobacco Use Types Packs/Day Years [...] on filedocumented in this encounter Care Teams Inspector Government Property Relationship Specialty Start Date End Date Pcp, Unknown PCP - General 04/10/22 04/14/22 Gloria Villarreal MD [address] [place] [address] PCP - General Internal Medicine 04/15/22 documented as of this encounter Additional Source Comments The information contained in this document represents components of the legal health record. It is not the complete legal health record.[facility]
--- OUTSIDE RECORDS SUMMARY | 2025-06-02 12:26 | XMS_ITS | Clinical Summary ---
Author Organization [facility] Address [address] [place] [address] Care Team Providers Care Aircraft Cabin Cleaner Name Role Phone Destin Holt MD Primary [...] - 1-dose 75+ series) 2029 Care Teams Aircraft Cabin Cleaner Relationship Specialty Start Date End Date Destin Holt MD [address] [facility] [place] [address] PCP - General 06/05/10
--- OUTSIDE RECORDS SUMMARY | 2025-06-02 12:26 | XMS_ITS | Encounter Summary ---
Author Organization [facility] Address [address] [place] [address] Phone Care Team Providers Care Assembly Member Name Role Phone Gloria Villarreal MD Primary Care Provider [phone] Encounter Details Date Type Department Care Team (Latest Contact Info) Description 01/02/2023 Transcribe Orders Virtual Department [address] [place] [address] Julee Castrejon NP [address] [place] [address] [email or web address] Abnormal findings on diagnostic imaging of liver [...] Primary documented in this encounter Care Teams Assembly Member Relationship Specialty Start Date End Date Gloria Villarreal MD [address] [place] [address] PCP - General Internal Medicine 04/15/22 documented as of this encounter Additional Source Comments The information contained in this document represents components of the legal health record. It is not the complete legal health record.[facility]
--- OUTSIDE RECORDS SUMMARY | 2025-06-02 12:26 | XMS_ITS | Encounter Summary ---
Author Organization [facility] Address [address] [place] [address] Phone Care Team Providers Care Housekeeper Nanny Name Role Phone Pcp, Unknown Primary Care Provider Gloria Dahl MD Primary Care Provider [phone] Reason for Referral * MRI/CAT Scan - Closed Specialty Diagnoses / Procedures Referred By Contac t Referred To Contact Radiology Diagnoses LLQ abdominal pain Abnormal findings on diagnostic imaging of liver and biliary tract Procedures MRI Pelvis (GI/) Lee Albarran MD Phone: tel: fax: [email or web address] Referral ID Status Reason Start Date Expiration Date Visits Re quested Visits Authorized [id number] Closed 04/10/2022 04/10/2023 1 1 * MRI/CAT Scan - Closed Specialty Diagnoses / Procedures Referred By Contac t Referred To Contact Radiology Diagnoses LLQ abdominal pain Abnormal findings on diagnostic imaging of liver and biliary tract Procedures MRI Cholangiopancreatography (MRCP) Lee Albarran MD Phone: tel: fax: mailto:[email or web address] Referral ID Status Reason Start Date Expiration Date Visits Re quested Visits Authorized [id number] Closed 04/10/2022 04/10/2023 1 1 Encounter Details Date Type Department Care Team (Latest Contact Info) Description 04/10/2022 Transcribe Orders Virtual Department [address] [place] [address] Julee Castrejon NP [address] [place] [address] [email or web address] LLQ abdominal pain (Primary Dx); Abnormal findings [...] tract documented in this encounter Care Teams Housekeeper Nanny Relationship Specialty Start Date End Date Pcp, Unknown PCP - General 04/10/22 04/14/22 Po, Gloria Taylor MD [address] [place] [address] [place] [phone] PCP - General Internal Medicine 04/15/22 documented as of this encounter Additional Source Comments The information contained in this document represents components of the legal health record. It is not the complete legal health record.[facility]
--- OUTSIDE RECORDS SUMMARY | 2025-06-02 12:26 | XMS_ITS | Encounter Summary ---
Author Organization [facility] Address [address] [place] [address] Phone Care Team Providers Care Medicare Sales Executive Name Role Phone Gloria Villarreal MD Primary Care Provider [phone] Encounter Details Date Type Department Care Team (Late st Contact Info) Description 07/08/2022 Procedure Pass [facility] Endoscopy Admitting Dept Virtual Department [address] [place] [address] Social History Tobacco Use Types Packs/Day Years [...] on filedocumented in this encounter Care Teams Medicare Sales Executive Relationship Specialty Start Date End Date Gloria Villarreal MD [address] [place] [address] PCP - General Internal Medicine 04/15/22 documented as of this encounter Additional Source Comments The information contained in this document represents components of the legal health record. It is not the complete legal health record.[facility]
--- OUTSIDE RECORDS SUMMARY | 2025-06-02 12:26 | XMS_ITS | Clinical Summary ---
Author Organization [facility] Address [address] [place] [address] Phone Care Team Providers Care House Supervisor Name Role Phone Gloria Villarreal MD Primary Care Provider [phone] Allergies Active Allergy Reactions Criticality Noted Date [...] this topic Medical Devices Implanted Type Area Pricing Intern Device Identifier Shelf Expiration Date Model / [...] 67 Admit Type: Outpatient Gender: Female Room: [place] [address] Referring MD: Gloria Villarreal MD Exam Type: Colonoscopy Indications: Colon cancer screening in patient at [facility]: Colorectal cancer in brother, Last colonoscopy 5years [...] monitored continuously. The Olympus adult variable colonoscope [id number] #3 was introduced through the anus and [...] or abscess without bleeding CPT copyright 2020 [employer]. All rights reserved. The codes documented in this report are preliminary and upon heavy equipment sales associate reviewmay be revised to meet current compliance requirements. Procedure Date: 07/08/2022 8:59:[address] [place] [address] Gloria Villarreal MD GI PROCEDURE ORDERABLES Final Result * (ABNORMAL) Comprehensive metabolic panel (04/10/2022 10:16 AM EDT) SODIUM 139 133 - 146 mmol/L [facility] POTASSIUM 4.1 3.3 - 5.1 mmol/L [facility] CHLORIDE 102 96 - 108 mmol/L [facility] CO2 27 21 - 35 mmol/L [facility] BUN 11 6 - 19 mg/dL [facility] CREATININE 0.60 0.5 - 1.5 mg/dL [facility] GLUCOSE 161(H) 70 - 99 mg/dL [facility] ALBUMIN 4.6 3.9 - 4.8 g/dL [facility] TOTAL PROTEIN 7.2 6.5 - 8.0 g/dL [facility] CALCIUM 9.6 8.4 - 10.3 mg/dL [facility] ALKALINE PHOSPHATASE 87 39 - 117 U/L [facility] TOTAL BILIRUBIN 0.2 0.0 - 1.2 mg/dL [facility] AST 21 0 - 37 U/L [facility] ALT 20 0 - 40 U/L [facility] GLOBULIN 2.6 1 - 4.8 g/dL [facility] EGFR 98 >59 mL/min/1.7 3m2 [facility] Comment:Estimated glomerular filtration rate calculated using the CKD-EPI refit equation. ANION GAP 14 10 - 20 mmol/L [facility] Blood 04/10/2022 10:1 6 AM EDT 04/10/2022 10:21 AM EDT Julee Castrejon NP LAB BLOOD ORDERABLES Final Result [facility] [address] [place] [address] from Last 3 Months or Most Recently Relevant to Health Maintenance Insurance MEDICARE PART A & B [employer] MEDIC[employer] ENHANCE SUPPLEMENT [facility] Address: [address] [place] [address] MEDICARE PART A & B [employer] MEDIC[employer] ENHANCE SUPPLEMENT [facility] Address: [address] [place] [address] MEDICARE PART A & B [facility] MEDICARE ENHANCE SUPPLEMENT MEDICARE PART A & B [facility] MEDICARE ENHANCE SUPPLEMENT MEDICARE PART A & B MEDICARE ENHANCE SUPPLEMENT MEDICARE PART A & B [facility] MEDICARE ENHANCE SUPPLEMENT MEDICARE PART A & B [facility] MEDICARE ENHANCE SUPPLEMENT MEDICARE PART A & B [facility] MEDICARE ENHANCE SUPPLEMENT [facility] Address: [address] [place] [address] MEDICARE PART A & B [employer] MEDIC[employer] ENHANCE SUPPLEMENT [facility] Address: [address] [place] [address] Care Teams House Supervisor Relationship Specialty Start Date End Date Gloria Villarreal MD [address] [place] [phone] PCP - General Internal Medicine 04/15/22 Additional Source Comments The information contained in this document represents components of the legal health record. It is not the complete legal health record.[facility]
--- OUTSIDE RECORDS SUMMARY | 2025-06-02 12:26 | XMS_ITS | Encounter Summary ---
Author Organization [facility] Address [address] [place] [address] Phone Care Team Providers Care Electrical Instrument Technician Name Role Phone Pcp, Unknown Primary Care Provider Unavailaminata e Gloria Villarreal MD Primary Care Provider [phone] Encounter Details Date Type Department Care Team (Late st Contact Info) Description 04/10/2022 Procedure Pass [address] [place] [address] Social History Tobacco Use Types Packs/Day Years [...] on filedocumented in this encounter Care Teams Electrical Instrument Technician Relationship Specialty Start Date End Date Pcp, Unknown PCP - General 04/10/22 04/14/22 Gloria Villarreal MD [address] [place] [address] PCP - General Internal Medicine 04/15/22 documented as of this encounter Additional Source Comments The information contained in this document represents components of the legal health record. It is not the complete legal health record.[facility]
== END 2025-06-02 10:13 | disposition home or self-care (01) ==
LOC: HO.HMGCX 10:12
PROVIDERS: PCP Internal Medicine; Visit Provider Internal Medicine
DX: M25.511 Pain in right shoulder (principal)
CPT/HCPCS: 73030

== ENCOUNTER → 2025-06-02 10:15 | Outpatient (BNV) | payer MEDICARE, OTHER, SELFPAY | PROVIDERS: PCP Internal Medicine; Visit Provider Radiology Diagnostic Radiology | DX: M19.011 Primary osteoarthritis, right shoulder (principal) | CPT/HCPCS: 73030 ==

== ENCOUNTER 2025-06-27 09:14 | Outpatient (AMB) | payer MEDICARE, OTHER, SELFPAY ==
--- OUTSIDE RECORDS SUMMARY | 2012-04-01 | XMS_ITS | Encounter Summary ---
Author Organization [facility] Address [address] [place] [address] Phone Care Team Providers Care Cheese Pancake Roller Name Role Phone Unavailable Primary Care Provider Unavailabl e Encounter Details Date Type Department Care Team (Late st Contact Info) Description 04/01/2012 Hospital Encounter [facility],Outside Imaging [address] [place] [address] Unknown, Unknown, Social History Tobacco Use Types [...] It is not the complete legal health record.[facility]
--- OUTSIDE RECORDS SUMMARY | 2013-08-27 01:00 | XMS_ITS | Encounter Summary ---
Author Organization [facility] Address [address] [place] [address] Phone Care Team Providers Care Bottler Name Role Phone Unavailable Primary Care Provider Unavailabl e Encounter Details Date Type Department Care Team (Late st Contact Info) Description 08/27/2013 Hospital Encounter [facility],Outside Imaging [address] [place], [place] [phone] Unknown, Unknown, Social History Tobacco Use Types [...]
[2025-06-27 09:19] VITALS: BP 122/84; PULSE 69; O2SAT 97; BMI 29.2
--- NOTE | 2025-06-27 09:19 | MHC.OFFVIS ---
Vital Signs 06/27/25 09:19 Height 5 ft 2.5 in Weight 162 lb 7.691 oz BMI 29.2 BP 122/84 Blood Pressure Location Lt brachial Position Sitting Pulse 69 Pulse Source Pulse Oximeter Pulse Oximetry (%) 97 Oxygen Delivery Method Room Air Intake Visit Reasons: T1DM Intake Note: Patient present today for Type 1 Diabetes Mellitus Last Diabetic eye exam: Last exam was on 03/2025 Last Podiatry Visit: Last appt was on 05/03/25 [facility] Random Glucose: 112 mg/dl HgA1C: 7.7% 05/31/25 Unhairing Machine Operator Required: No Accompanied by: Self / Same As Patient Allergies azathioprine (From IMURAN) Allergy (Unknown, Verified 06/27/25 09:21) ABNORMAL LABS,HIVES etanercept (From ENBREL) Allergy (Unknown, Verified 06/27/25 09:21) HIVES infliximab (From REMICADE) Allergy (Unknown, Verified 06/27/25 09:21) RASH levofloxacin Allergy (Unknown, Verified 06/27/25 09:21) GI Upset nickel (NICKEL) Allergy (Unknown, Verified 06/27/25 09:21) UNKNOWN tramadol Adverse Reaction (Verified 06/27/25 09:21) Nausea, sweating, dizzy Medication List - Last Reconciled 06/27/25 by Regla Mcmullen MD [AutoPAP 5-15 cm of water humidified AIR As directed] acetone (urine) test (Ketostix strips) As directed albuterol sulfate 90 mcg/actuation 1 puff inhalation QID PRN alcohol swabs 400 pad topical 6XD alendronate 70 mg PO ascorbic acid (vitamin C) 500 mg PO DAILY 90 days atorvastatin 20 mg PO DAILY blood glucose control, high As directed to calibrate meter blood pressure monitor (Blood Pressure Kit) As directed blood sugar diagnostic (OneTouch Verio test strips) TEST 3 TIMES A DAY blood-glucose meter (OneTouch Verio Flex Start kit) As directed blood-glucose sensor ([employer] G7 Sensor device) As directed change every 10 days bupropion HCl XL (Wellbutrin XL) 300 mg PO QAM certolizumab pegol (Cimzia) 200 mg subcut Q4W cholecalciferol (vitamin D3) 25 mcg PO DAILY fluticasone propionate 50 mcg/actuation (Flonase Allergy Relief) 2 sprays intranasal DAILY glucagon 3 mg/actuation (Baqsimi) 3 mg intranasal BID PRN 30 days hydroxyzine HCl 25 mg PO BID 7 days insulin lispro (Humalog KwikPen (U-100) Insulin) inject 3-5 units prior to meals subcutaneously 3 times a day; levocetirizine 5 mg PO DAILY PRN lisinopril 30 mg PO DAILY lorazepam 1 mg PO DAILY PRN 30 days multivitamin 1 tab PO DAILY omega-3 fatty acids (Fish Oil Concentrate) 1,000 mg PO DAILY omeprazole 40 mg PO .prn ondansetron 8 mg PO Q8H PRN pen needle, diabetic (BD Ultra-Fine Margaret Pen Needle) USE 4 PEN NEEDLES DAILY WITH INSULIN Tresiba FlexTouch U-200 (insulin degludec) 20 units (0.1 mL) subcut BEDTIME 90 days NS HPI Comments Details: 70 yo female with insulin dependent diabetes DM diagnosed with diabetes s/p pancreatectomy in October 2017, who presents for continued management of diabetes.? She was started on an islet insulin pump and did not do well with the technology and she is back on basal/bolus insulin. 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 bladder ca w/ resection in late 2020 Diabetes medications: Tresiba 20 units at bedtime Humalog 2-4 units occasionally will take 5 units for cereal or bagel when she is doing yard work, stacking wood she will skip nshot acting dose before DEXCOM G7 downloaded from June 14 to 06/27/2025 Average glucose 162 mg/dL G CT 7.2% Coefficient of variation 29.6% Time CGM active 95% Within target range 66% High 29% Very high 5% Low 0% Very low 0% Interpretation: Having some postprandial hyperglycemia mostly after dinner. Random Glucose: 112 mg/dl Last Diabetic eye exam: Last exam was on 03/2025 No retinopathy has annual eye exam each year Has neuropathy Symptoms:? reports? numbness and tingling in lower extremities. - Last Podiatry Visit: Last appt was on 05/03/25 @ [facility] No Nephropathy: 09/02/2024 eGFR>60 microalbumin 18.0 on lisinopril 30 mg Has hyperlipidemiaL on atorvastatin 20 mg most recent LDL 73 09/02/2024 Hypoglycemia:? rarely but happens when more active Hyperglycemia: + polyuria,? but drinks tea frequently Exercise: very active around home and works in her yard Physical exam General: sitting comfortably in no acute distress Cardiac: normal heart sounds Pulm: normal breath sounds B/L, no added breath sounds Abd: not distended, no tenderness Extremities: no edema, no signs of myxedema Laboratory Tests 06/16/23 09/02/24 09/02/24 06:14 08:42 08:50 Hgb 13.9 Hct 41.1 Plt Count 421 H D Creatinine 0.75 Estimated GFR > 60 Hgb A1c (Clinic) Hemoglobin A1c % 7.6 H AST 29 ALT 34 H Triglycerides 61 Cholesterol 133 LDL Cholesterol, Calc 73 HDL Cholesterol 48 TSH 1.65 Urine Creatinine 117.35 Urine Microalbumin 18.0 Microalb/Creat Ratio 15.3 11/05/24 05/31/25 08:12 11:21 Hgb Hct Plt Count Creatinine Estimated GFR Hgb A1c (Clinic) 8.8 H 7.7 H Hemoglobin A1c % AST ALT Triglycerides Cholesterol LDL Cholesterol, Calc HDL Cholesterol TSH Urine Creatinine Urine Microalbumin Microalb/Creat Ratio [facility] Medical History (Updated 06/27/25 @ 09:54 by Regla Mcmullen MD) Dyslipidemia Intractable pain Pneumonia Daytime sleepiness Common bile duct dilatation Colon cancer screening Left hip pain Left knee pain Wheezes Low back pain radiating to left lower extremity Bladder cancer Behcet's disease COVID-19 virus infection Essential hypertension Uncontrolled diabetes mellitus Non-toxic multinodular goiter Dysuria Hyperlipidemia LDL goal <100 Vitamin D insufficiency 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 Thyroid nodule Right tibial fracture Tobacco abuse Fractured coccyx Pulmonary nodule History of DVT (deep vein thrombosis) Behcet's syndrome COPD (chronic obstructive pulmonary disease) Osteoporosis Anxiety GERD (gastroesophageal reflux disease) Malignant neoplasm of pancreas, unspecified Obstructive sleep apnea Surgical History History of back surgery History of surgery History of colonoscopy History of varicose veins of lower extremity History of surgery History of pancreatic surgery History of open reduction and internal fixation (ORIF) procedure H/O splenectomy History of cholecystectomy Family History Father Diabetes Advanced cardiac disease Mother Asthma Osteoporosis Brain cancer Brother Lung cancer Sister Breast cancer History of Coumadin therapy Brother Colostomy in place Daughter No problems noted. Son No problems noted. Social History Household Members: None Housing: House Do you presently have visiting nurse or other home services: No Alcohol intake: never Patient Tobacco Use Status: Current everyday Tobacco user Tobacco use type: Cigarette Cigarette Packs Per Day: 0.5 Cigarettes Per Day: 10 Years Smoked: 49 , still smoking (05/2025) e-Cigarette/Vaping Use: Never Used Second Hand Smoke Exposure: No Advance Directives Date on File: 12/11/21 service: No Current occupational status: retired Cognitive needs: No Hearing needs: No Vision needs: Yes Physical Exam Vital Signs: Last Vital Signs Pulse 69 06/27/25 09:19 BP 122/84 06/27/25 09:19 Pulse Ox 97 06/27/25 09:19 Oxygen Delivery Method Room Air 06/27/25 09:19 BMI result Body Mass Index 29.2 Office Procedures Glucose Monitoring Details Details: see [facility] [address] - Glucose monitoring, continuous-physician I&R Procedure code (CPT) selection complete Results Reviewed Results Reviewed: Laboratory Last Values Glucose (Clinic) 112 mg/dL (60-115) 06/27/25 09:25 Assessment & Plan Assessment & Plan (1) 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 Dexcom G7 data shows she is Having some postprandial hyperglycemia mostly after dinner. Per insurance request degludec changed to Tresiba A1c down to 05/31/25 7.7% From 11/05/2024 8.8% Plan: -Continue Tresiba 20 units daily at bedtime Continue Humalog 2-4 units before breakfast or lunch, increase to 5-6 units prior to dinner -she would be due for repeat annual labs prior to her next visit, these have already been ordered by her PCP, The patient had an opportunity to ask questions regarding treatment plan. The patient expressed understanding and agreement with the above treatment plan. The patient is aware they should contact our office by phone for worsening glucose readings or for any low blood sugars which may warrant a change in diabetes medication. Compliance is encouraged with medications and any followup testing/consults which may have been ordered. (2) Dyslipidemia: Code(s): E78.5 - Hyperlipidemia, unspecified Category: Medical Plan: LDL 73 mg/dL from August 2024 Continue atorvastatin 20 mg daily Plan I spent 30 minutes in reviewing the record, seeing the patient and documenting in the medical record. Orders: Orders AMB Glucose Monitoring Today E13.9 - Other specified diabetes mellitus without complications, S36.209S - Unspecified injury of unspecified part of pancreas, sequela Patient Instructions: Continue Tresiba 20 units daily at bedtime Continue Humalog 2-4 units before breakfast or lunch, increase to 5-6 units prior to dinner Do ultrasound of the thyroid sometime in August or September 2025, we will follow up in October 2025 to discuss results, someone should be calling you to schedule the ultrasound, if you do not hear from anyone by August 2025, you can call the [facility] and connect with the ultrasound to schedule the appointment Coding Level of Care Code Est Pt Level 4 (23977) Diagnoses 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
[2025-06-27 09:30] LABS: Glucose, Whole Blood 112 mg/dL (60-115)
--- OUTSIDE RECORDS SUMMARY | 2025-06-27 10:25 | XMS_ITS | Encounter Summary ---
Author Organization [facility] Address [address] [place] [address] Phone Care Team Providers Care Upset Welding Machine Operator Name Role Phone Pcp, Unknown Primary Care Provider Gloria Dahl MD Primary Care Provider [phone] Reason for Referral * MRI/CAT Scan - Closed Specialty Diagnoses / Procedures Referred By Contac t Referred To Contact Radiology Diagnoses LLQ abdominal pain Abnormal findings on diagnostic imaging of liver and biliary tract Procedures MRI Pelvis (GI/) Lee Albarran MD Phone: tel: fax: [email or web address] Referral ID Status Reason Start Date Expiration Date Visits Re quested Visits Authorized [id number] Closed 04/10/2022 04/10/2023 1 1 * MRI/CAT Scan - Closed Specialty Diagnoses / Procedures Referred By Contac t Referred To Contact Radiology Diagnoses LLQ abdominal pain Abnormal findings on diagnostic imaging of liver and biliary tract Procedures MRI Cholangiopancreatography (MRCP) Lee Albarran MD Phone: tel: fax: mailto:[email or web address] Referral ID Status Reason Start Date Expiration Date Visits Re quested Visits Authorized [id number] Closed 04/10/2022 04/10/2023 1 1 Encounter Details Date Type Department Care Team (Latest Contact Info) Description 04/10/2022 Transcribe Orders Virtual Department [address] [place] [address] Julee Castrejon CNP [address] [place] [address] [email or web address] abdominal pain (Primary Dx); Abnormal findings [...] tract documented in this encounter Care Teams Upset Welding Machine Operator Relationship Specialty Start Date End Date Pcp, Unknown PCP - General 04/10/22 04/14/22 Po, Gloria Taylor MD [address] [place] [address] PCP - General Internal Medicine 04/15/22 documented as of this encounter Additional Source Comments The information contained in this document represents components of the legal health record. It is not the complete legal health record.[facility]
--- OUTSIDE RECORDS SUMMARY | 2025-06-27 10:25 | XMS_ITS | Encounter Summary ---
Author Organization [facility] Address [address] [place] [address] Phone Care Team Providers Care Cloth Bleaching Range Operator Chief Name Role Phone Gloria Villarreal MD Primary Care Provider [phone] Encounter Details Date Type Department Care Team (Latest Contact Info) Description 01/02/2023 Transcribe Orders Virtual Department [address] [place] [address] Julee Castrejon CNP [address] [place] [address] [email or web address] Abnormal findings on diagnostic imaging of liver [...] Primary documented in this encounter Care Teams Cloth Bleaching Range Operator Chief Relationship Specialty Start Date End Date Gloria Villarreal MD [address] [place] [address] PCP - General Internal Medicine 04/15/22 documented as of this encounter Additional Source Comments The information contained in this document represents components of the legal health record. It is not the complete legal health record.[facility]
--- OUTSIDE RECORDS SUMMARY | 2025-06-27 10:25 | XMS_ITS | Clinical Summary ---
Author Organization [facility] Address [address] [place] [address] Phone Care Team Providers Care Ship Surveyor Name Role Phone Gloria Villarreal MD Primary Care Provider [phone] Allergies Active Allergy Reactions Criticality Noted Date [...] COLONOSCOPY 1999 RSV VACCINE (1 - Risk 50-74 years 1-dose series) 01/27/2004 OSTEOPOROSIS SCREENING INITIAL (ONE-TIME) 2019 PNEUMOCOCCAL VACCINES [...] this topic Medical Devices Implanted Type Area Morphologist Device Identifier Shelf Expiration Date Model / [...] - 07/08/2022 8:59 AM EDT Patient Name: nAa Barajas Attending MD:: GIULIANO CHRISTENSEN MD Procedure Date: 07/08/2022 8:59 AM Date of : 1955 Age: 67 Admit Type: Outpatient Gender: Female Room: [place] [address] Referring MD: Gloria Villarreal MD Exam Type: Colonoscopy Indications: Colon cancer screening in patient at [facility]: Colorectal cancer in brother, Last colonoscopy [...] monitored continuously. The Olympus adult variable colonoscope [id number] #[id number] was introduced through the anus and [...] or abscess without bleeding CPT copyright 2020 [employer]. All rights reserved. The codes documented in this report are preliminary and upon clinical nurse occupational medicine reviewmay be revised to meet current compliance requirements. Procedure Date: 07/08/2022 8:59:[address] [place] [address] Gloria Villarreal MD GI PROCEDURE ORDERABLES Final Result * (ABNORMAL) Comprehensive metabolic panel (04/10/2022 10:16 AM EDT) SODIUM 139 133 - 146 mmol/L [facility] POTASSIUM 4.1 3.3 - 5.1 mmol/L [facility] CHLORIDE 102 96 - 108 mmol/L [facility] CO2 27 21 - 35 mmol/L [facility] BUN 11 6 - 19 mg/dL [facility] CREATININE 0.60 0.5 - 1.5 mg/dL [facility] GLUCOSE 161(H) 70 - 99 mg/dL [facility] ALBUMIN 4.6 3.9 - 4.8 g/dL [facility] TOTAL PROTEIN 7.2 6.5 - 8.0 g/dL [facility] CALCIUM 9.6 8.4 - 10.3 mg/dL [facility] ALKALINE PHOSPHATASE 87 39 - 117 U/L [facility] TOTAL BILIRUBIN 0.2 0.0 - 1.2 mg/dL [facility] AST 21 0 - 37 U/L [facility] ALT 20 0 - 40 U/L [facility] GLOBULIN 2.6 1 - 4.8 g/dL [facility] EGFR 98 >59 mL/min/1.7 3m2 [facility] Comment:Estimated glomerular filtration rate calculated using the CKD-EPI refit equation. ANION GAP 14 10 - 20 mmol/L [facility] Blood 04/10/2022 10:1 6 AM EDT 04/10/2022 10:21 AM EDT Julee Castrejon [facility] BLOOD ORDERABLES Final Result [facility] [address] [place] [address] from Last 3 Months or Most Recently Relevant to Health Maintenance Insurance MEDICARE PART A & B [employer] MEDIC[employer] ENHANCE SUPPLEMENT [facility] Address: [address] [place] [address] MEDICARE PART A & B [employer] MED[employer] ENHANCE SUPPLEMENT [facility] Address: [address] [place] [address] MEDICARE PART A & B [facility] MEDICARE ENHANCE SUPPLEMENT MEDICARE PART A & B [facility] MEDICARE ENHANCE SUPPLEMENT MEDICARE PART A & B MEDICARE ENHANCE SUPPLEMENT MEDICARE PART A & B [facility] MEDICARE ENHANCE SUPPLEMENT MEDICARE PART A & B [facility] MEDICARE ENHANCE SUPPLEMENT MEDICARE PART A & B [facility] MEDICARE ENHANCE SUPPLEMENT [facility] Address: [address] [place] [address] MEDICARE PART A & B [employer] MED[employer] ENHANCE SUPPLEMENT [facility] Address: [address] [place] [address] Care Teams Ship Surveyor Relationship Specialty Start Date End Date Gloria Villarreal MD [address] [place] [phone] PCP - General Internal Medicine 04/15/22 Additional Source Comments The information contained in this document represents components of the legal health record. It is not the complete legal health record.[facility]
--- OUTSIDE RECORDS SUMMARY | 2025-06-27 10:25 | XMS_ITS | Clinical Summary ---
Author Organization [facility] Address [address] [place] [address] Care Team Providers Care Lead Embedded Software Engineer Name Role Phone Destin Holt MD Primary [...] 1955 Fall Risk Screening 2019 COVID-19 Vaccine (2023-25 season) 2024 RSV Immunization ( o r 60+ Years) (1 - 1-dose 75+ series) 2029 Care Teams Lead Embedded Software Engineer Relationship Specialty Start Date End Date Destin Holt MD [address] [facility] [place] [address] PCP - General 06/05/10
--- OUTSIDE RECORDS SUMMARY | 2025-06-27 10:25 | XMS_ITS | Encounter Summary ---
Author Organization [facility] Address [address] [place] [address] Phone Care Team Providers Care Sewage Disposal Worker Name Role Phone Pcp, Unknown Primary Care Provider Unavailaminata e Gloria Villarreal MD Primary Care Provider [phone] Encounter Details Date Type Department Care Team (Late st Contact Info) Description 04/10/2022 Procedure Pass [address] [place] [address] Social History Tobacco Use Types Packs/Day Years [...] on filedocumented in this encounter Care Teams Sewage Disposal Worker Relationship Specialty Start Date End Date Pcp, Unknown PCP - General 04/10/22 04/14/22 Gloria Villarreal MD [address] [place] [address] PCP - General Internal Medicine 04/15/22 documented as of this encounter Additional Source Comments The information contained in this document represents components of the legal health record. It is not the complete legal health record.[facility]
--- OUTSIDE RECORDS SUMMARY | 2025-06-27 10:25 | XMS_ITS | Encounter Summary ---
Author Organization [facility] Address [address] [place] [address] Phone Care Team Providers Care Warehouse Administrative Assistant Name Role Phone Pcp, Unknown Primary Care Provider Unavailaminata e Gloria Villarreal MD Primary Care Provider [phone] Encounter Details Date Type Department Care Team (Late st Contact Info) Description 04/10/2022 Procedure Pass [address] [place] [address] Social History Tobacco Use Types Packs/Day Years [...] filedocumented in this encounter Care Teams Warehouse Administrative Assistant Relationship Specialty Start Date End Date Pcp, Unknown PCP - General 04/10/22 04/14/22 Gloria Villarreal MD [address] [place] [address] PCP - General Internal Medicine 04/15/22 documented as of this encounter Additional Source Comments The information contained in this document represents components of the legal health record. It is not the complete legal health record.[facility]
--- OUTSIDE RECORDS SUMMARY | 2025-06-27 10:25 | XMS_ITS | Patient Health Record ---
Author Organization [facility] Lor Gramajoley Address [address] [place] [address] Care Team Providers Care Promotional Demonstrator Name Role Phone PhilGloria Primary Care Provider Unavailabl e Black, Chelsie Unavailable [phone] Allergies Allergen (clinical drug ingredient) Drug/Non Drug [...] Lab: Notes/Report: HEMOGLOBIN A1C % (HH) 8.3 HEMOGLOBIN A1C (GLYCOHEMOGLO BIN) Reviewed date:06/02/2025 08:03:13 AM Interpretation: Performing Lab: Notes/Report: HEMOGLOBIN A1C % (HH) 7.6 Reason For Referral No Information Medications Medication SIG (Take, Route, Frequency, Duration) Notes Start Date End Date Status Extra Depth Orthopedic Shoes (1 Pair) with Customized Heat Molded Multidensity Innersoles (3 Pair) as directed Dx: IDDM/Polyneuropathy (E10.42), Hammertoe Foot Deformity (M20.41,M20.42), Preulcerative Skin Lesion(s) (L85.1) 12/01/2023 Active Ammonium Lactate 12 % 1 application Externally to affected areas of dry skin to feet except for between the toes Twice a day; Duration: 30 days Active Fish Oil Active Humira Not-Taking HumaLOG Active Alendronate Sodium 70 MG 1 tablet Orally ; Duration: 30 day(s) Not-Taking Multivitamin Active LORazepam 1 MG 1 tablet at bedtime as needed Orally Once a day PRN Not-Taking Omeprazole PRN Active Colcrys Not-Taking zzzCompression Stockings 20-30mm Hg . . .; Duration: . Active predniSONE 20 MG 3 tablet Orally Once a day Not-Taking Atorvastatin Calcium 20 MG Orally Active Remicade Not-Taking Biotin Active buPROPion HCl 100 MG 1 tablet Orally Twi ce a day; Duration: 30 day(s) Not-Taking Cimzia Active Ibuprofen Not-Taking Cefdinir 300 MG as directed Orally Not-Taking Clindamycin HCl 300 MG 2 capsules Orally every 8 hrs; Duration: 10 day(s) 03/22/2021 Not-Taking Wellbutrin Active Extra Depth Orthopedic Shoes (1 Pair) with Customized Heat Molded Multidensity Innersoles (3 Pair) as directed Dx: NIDDM/Polyneuropathy (E11.42), Hammertoe Foot Deformity (M20.41,M20.42), Preulcerative Skin Lesion(s) (L85.1 05/15/2020 Not-Taking Calcium Active Vitamin C Active zzzCompression Stockings 20-30mm Hg . . .; Duration: . Not-Takin g Aspir-81 Not-Taking Prednisone 1 tab Oral; Duration : 14 days Not-Taking Tresiba Active Extra Depth Orthopedic Shoes (1 Pair) with Customized Heat Molded Multidensity Innersoles (3 Pair) as directed Dx: NIDDM/Polyneuropathy (E11.42), Hammertoe Foot Deformity (M20.41,M20.42), Preulcerative Skin Lesion(s) (L85.1 02/04/2019 Not-Taking Cranberry Not-Taking Fosamax Not-Taking Estradiol 0.1 MG/GM Vaginal; Duration: 90 Not-Taking Calcium Not-Taking Lantus Not-Taking Vitamin D Not-Taking Extra Depth Orthopedic Shoes (1 Pair) with Customized Heat Molded Multidensity Innersoles (3 Pair) as directed Dx: NIDDM/Polyneuropathy (E11.42), Hammertoe Foot Deformity (M20.41,M20.42), Preulcerative Skin Lesion(s) (L85.1 12/17/2021 Not-Taking predniSONE Not-Takin g Allergy Not-Taking Extra Depth Orthopedic Shoes (1 Pair) with Customized Heat Molded Multidensity Innersoles (3 Pair) as directed Dx: IDDM/Polyneuropathy (E10.42), Hammertoe Foot Deformity (M20.41,M20.42), Preulcerative Skin Lesion(s) (L85.1) 02/21/2025 Active EpiPen 2-Cj Not-Demar ing Immunizations Vaccine Route Administration Date Status Comme nts Influenza Unknown 10/23/2018 Administered Influenza Unknown 05/24/2019 Administered Influenza Unknown 04/24/2020 Administered Influenza Unknown 05/23/2022 Administered Influenza Unknown 06/23/2023 Administered Influenza Unknown 06/22/2024 Administered COVID-19 Moderna Vaccine Unknown 11/23/2020 Administere [...] Problem Acquired hammer toe of right foot (7341390900450109 ) Other hammer toe(s) (acquired), right foot (M20.41) Active confirmed Problem Acquired hammer toe of left foot (4909224463935564 ) Other hammer toe(s) (acquired), left foot (M20.42) Active confirmed Problem Polyneuropathy due to diabetes mellitus type I (862544736) Type 1 diabetes mellitus with diabetic polyneuropathy (E10.42) Active confirmed Vital Signs Blood pressure diastolic 76 mm Hg 06/02/2025 Height 5ft 2in in 06/02/2025 Blood pressure systolic 130 mm Hg 06/02/2025 Weight 160 lbs 06/02/2025 BMI 29.26 kg/m2 06/02/2025 Procedures Procedure Date Ordered Date Performed Result Body Sit e 44063-CWWFERV NAIL, 6 OR MORE 08/12/2024 N/A 91986-ABCZ SKIN LESIONS, 2 TO 4 08/12/2024 N/A 95474-VUQOBNK NAIL, 6 OR MORE 11/15/2024 N/A 95298-Wtnozntj Plate 11/15/2024 N/A 54395-MALR SKIN LESIONS, 2 TO 4 11/15/2024 N/A 59666-SOAVOVH NAIL, 6 OR MORE 02/21/2025 N/A 02281-UMOK SKIN LESIONS, 2 TO 4 02/21/2025 N/A 40918-TBQPYLJ NAIL, 6 OR MORE 06/02/2025 N/A 88558-Ronsusxn Plate 06/02/2025 N/A 25397-DZIA SKIN LESIONS, 2 TO 4 06/02/2025 N/A Encounters Encounter Location Date Provider Diagnosis [address] [address] 08/12/2024 Chelsie Black Neuralgia and neuritis, unspecified M79.2 ; Type 1 diabetes mellitus with diabetic polyneuropathy E10.42 ; Tinea unguium B35.1 and Neuropathy G62.[address] [address] 11/15/2024 Chelsie Black Type 1 diabetes mellitus with diabetic polyneuropathy E10.42 ; Tinea unguium B35.1 ; Ingrown nail L60.0 and Xerosis of skin L85.[address] [address] 02/21/2025 Chelsie Black Type 1 diabetes mellitus with diabetic polyneuropathy E10.42 ; Other hammer toe(s) (acquired), right foot M20.41 ; Tinea unguium B35.1 ; Xerosis of skin L85.3 and Other hammer toe(s) (acquired), left foot M20.[address] [address] 06/02/2025 Chelsie Li Type 1 diabetes mellitus with diabetic polyneuropathy E10.42 ; Tinea unguium B35.1 and Ingrown nail L60.0 [facility] [place] [address] [place] [address] 04/19/2025 Chelsie Li Assessments Encounter Date Diagnosis [...] mellitus with diabetic polyneuropathy (ICD-10 - E10.42) 06/02/2025 Tinea unguium (ICD-10 - B35.1) 06/02/2025 Type 1 diabetes mellitus with diabetic polyneuropathy (ICD-10 - E10.42) 06/02/2025 Ingrown nail (ICD-10 - L60.0) 11/15/2024 Tinea unguium (ICD-10 - B35.1) 02/21/2025 Tinea unguium (ICD-10 - B35.1) 08/12/2024 Tinea unguium (ICD-10 - B35.1) 02/21/2025 Xerosis of skin (ICD-10 - L85.3) 11/15/2024 Ingrown nail (ICD-10 - L60.0) 08/12/2024 Neuropathy (ICD-10 - G62.9) 11/15/2024 Xerosis of skin (ICD-10 - L85.3) 02/21/2025 Other hammer toe(s) (acquired), left foot (ICD-10 - M20.42) 06/02/2025 Other Plan Of Treatment Pending Test Test Name Order Date 86693-ONNLHCL NAIL, 6 OR MORE 02/04/2019 53973-IRCFCPJ NAIL, 6 OR MORE 05/06/2019 36854-MEPKWJB NAIL, 6 OR MORE 08/09/2019 47602-DJPJTPH NAIL, 6 OR MORE 11/04/2019 53782-WBGUOVL NAIL, 6 OR MORE 02/10/2020 26548-BEDLBTQ NAIL, 6 OR MORE 05/15/2020 05341-HFEKNAA NAIL, 6 OR MORE 08/21/2020 06093-WFNISLD NAIL, 6 OR MORE 11/20/2020 56388-YWDCBJX NAIL, 6 OR MORE 03/22/2021 78984-HKCCACS NAIL, 6 OR MORE 07/05/2021 32891-SZWWSJT NAIL, 6 OR MORE 09/20/2021 70735-WPXBROW NAIL, 6 OR MORE 12/17/2021 88376-HTVHKEQ NAIL, 6 OR MORE 03/04/2022 22510-NUDKLXF NAIL, 6 OR MORE 05/16/2022 26646-SMLYOBS NAIL, 6 OR MORE 07/22/2022 95556-WLISPOB NAIL, 6 OR MORE 10/31/2022 71412-XVBHZEC NAIL, 6 OR MORE 01/09/2023 44167-PQENMOT NAIL, 6 OR MORE 03/20/2023 46539-WYUVTPC NAIL, 6 OR MORE 06/09/2023 24184-UOGPMQI NAIL, 6 OR MORE 08/25/2023 30716-WYIGZNC NAIL, 6 OR MORE 12/01/2023 57088-OIFTEFZ NAIL, 6 OR MORE 02/04/2024 52238-QLEASTY NAIL, 6 OR MORE 05/07/2024 38060-TWSCDLC NAIL, 6 OR MORE 08/12/2024 51433-LRPFMIL NAIL, 6 OR MORE 11/15/2024 36915-YESHIDD NAIL, 6 OR MORE 02/21/2025 08710-FIJNGHF NAIL, 6 OR MORE 06/02/2025 23587-IHEUBRS NAIL, 1-5 02/20/2015 69931-Fteijant Plate 08/09/2019 37384-Qotbhfdr Plate 12/17/2021 32935-Mmxjzvkv Plate 05/15/2020 52277-Muebvhai Plate 11/20/2020 98352-Zzakttzp Plate 12/01/2023 51533-Jxmpxwkc Plate 10/31/2022 01078-Oaryhroh Plate 07/05/2021 53609-Rokfgnhr Plate 11/15/2024 68641-Dwpanmym Plate 06/02/2025 52605-Gvyebtri Plate Each Additional 05/2023 88465-Eqjjaveh Plate Each Additional 07/2024 10345-Gzdcmiko Plate Each Additional 46248-Ugslsabj Plate Each Additional 69233- Debride <25 sq cm 06/09/2023 82882 I&D ABSCESS- SIMPLE,SINGLE 024 42815-PVCA SKIN LESIONS, OVER 4 06/09/20 11612-CPTA SKIN LESIONS, OVER 4 08/25/20 34928-PWBU SKIN LESIONS, OVER 4 01/10/20 94779-JHDN SKIN LESIONS, OVER 4 03/20/20 07669-SNRU SKIN LESIONS, 2 TO 4 10/31/19 65643-QCEX SKIN LESIONS, 2 TO 4 07/22/20 21335-TLSN SKIN LESIONS, 2 TO 4 05/16/20 25373-VQQX SKIN LESIONS, 2 TO 4 02/04/20 78496-WOZB SKIN LESIONS, 2 TO 4 12/01/19 20942-KLTW SKIN LESIONS, 2 TO 4 02/22/20 60005-AOPF SKIN LESIONS, 2 TO 4 11/15/19 83795-XYYB SKIN LESIONS, 2 TO 4 08/12/20 92684-UEPX SKIN LESIONS, 2 TO 4 05/07/20 42364-XVCB SKIN LESIONS, 2 TO 4 08/09/20 84084-HHLY SKIN LESIONS, 2 TO 4 02/05/20 44096-EBCS SKIN LESIONS, 2 TO 4 05/06/20 71749-TYYL SKIN LESIONS, 2 TO 4 08/21/20 16616-KHWW SKIN LESIONS, 2 TO 4 05/15/20 89770-ZSCA SKIN LESIONS, 2 TO 4 02/10/20 90985-AGWM SKIN LESIONS, 2 TO 4 11/04/19 32840-JAXI SKIN LESIONS, 2 TO 4 03/04/20 72359-STAZ SKIN LESIONS, 2 TO 4 12/18/19 94617-KHRC SKIN LESIONS, 2 TO 4 09/20/20 20575-NKBD SKIN LESIONS, 2 TO 4 03/01/20 21 82224-ACAO SKIN LESIONS, 2 TO 4 07/05/20 21 38466-HNDL SKIN LESIONS, 2 TO 4 03/22/20 21 49484-QDKR SKIN LESIONS, 2 TO 4 06/02/20 34478- Removal of Foreign Body, Subcut 0 02/04/2024 Next Appt Details Provider Name:Chelsie Li , 09/08/2025 08:30:00 AM, [address] [facility], [place], [address], Insurance Providers Payer Name Payer Address Payer Phone Subscriber Number Group Number Insured Name Patient Relationship to Insured Coverage Start Date Coverage End Date Medicare National Govt [employer] [address] [place] [address] [phone] [id number] Jean-Claude alexis Ana Self - patient is the insured [place] [address] [place] [address] [id number] Jean-Claude alexis Ana Self - patient is the insured Medical [...] infectio n, traveled from leg to ankle- [facility] right leg 05/29/24 Hospitalization History Reason Date(Month/Year) [facility]- Was on Pre dnisone for swelling feet and legs- 2 nights 12/10/2021 [facility] - Hospitalized f or feet/Leg swelling-Left hospital because was on bed in hallway 22 hrs 11/2021 [facility] bladder cancer treatments-Ended 11/2910/25/2021
--- OUTSIDE RECORDS SUMMARY | 2025-06-27 10:25 | XMS_ITS | Encounter Summary ---
Author Organization Located [facility] Address [address] [place] [address] Phone Care Team Providers Care Interactive Video Technician Name Role Phone Gloria Villarreal MD Primary Care Provider [phone] Encounter Details Date Type Department Care Team (Late st Contact Info) Description 07/08/2022 Procedure Pass [facility]oscopy Admitting Dept Virtual Department [address] [place] [address] Social History Tobacco Use Types Packs/Day Years [...] on filedocumented in this encounter Care Teams Interactive Video Technician Relationship Specialty Start Date End Date Gloria Villarreal MD [address] [place] [address] PCP - General Internal Medicine 04/15/22 documented as of this encounter Additional Source Comments The information contained in this document represents components of the legal health record. It is not the complete legal health record.[facility]
== END 2025-06-27 09:54 | disposition home or self-care (01) ==
LOC: HO.ENCR 09:15
PROVIDERS: PCP Internal Medicine; Visit Provider Student in an Organized Health Care Education/Training Program
DX: E13.9 Other specified diabetes mellitus without complications (principal); S36.209S Unspecified injury of unspecified part of pancreas, sequela; E78.5 Hyperlipidemia, unspecified
CPT/HCPCS: 95251; 99214

== ENCOUNTER → 2025-06-27 09:14 | Outpatient (BNVA) | payer MEDICARE, OTHER, SELFPAY | PROVIDERS: PCP Internal Medicine; Visit Provider Student in an Organized Health Care Education/Training Program | DX: E13.9 Other specified diabetes mellitus without complications (principal); S36.209S Unspecified injury of unspecified part of pancreas, sequela; E78.5 Hyperlipidemia, unspecified; Z79.4 Long term (current) use of insulin | CPT/HCPCS: 82947; 99212 ==

== ENCOUNTER 2025-09-06 09:12 | Outpatient (AMB) | payer MEDICARE, OTHER, SELFPAY ==
--- OUTSIDE RECORDS SUMMARY | 2012-03-31 23:00 | XMS_ITS | Encounter Summary ---
Author Organization [facility] Address [address] [place] [address] Phone Care Team Providers Care Control Analyst Name Role Phone Unavailable Primary Care Provider Unavailabl e Encounter Details Date Type Department Care Team (Late st Contact Info) Description 04/01/2012 Hospital Encounter [facility],Outside Imaging [address] [place] [address] Unknown, Unknown, Social History Tobacco Use Types [...] It is not the complete legal health record.[facility]
--- OUTSIDE RECORDS SUMMARY | 2013-08-27 | XMS_ITS | Encounter Summary ---
Author Organization [facility] Address [address] [place] [address] Phone Care Team Providers Care Cytotechnologist Name Role Phone Unavailable Primary Care Provider Unavailabl e Encounter Details Date Type Department Care Team (Late st Contact Info) Description 08/27/2013 Hospital Encounter [facility],Outside Imaging [address] [place], [place] [phone] Unknown, Unknown, Social History Tobacco Use Types [...] Procedure Name Priority Date/Time Associated Diagnosis Comments XR SPINE OUTSIDE (NO INTERPRETATION) Routine 08/27/2013 12:00 AM EST documented in this encounter Results * XR SPINE OUTSIDE(NO INTERPRETATION) (08/27/2013 12:00 AM EST) Narrative SYSTEMGENERATED, DOCUMENTATION - 04/26/2022 6:53 AM EDT This study is for PACS storage only and not for interpretation. us Unknown Unknown MD KRISHNA OUTSIDE IMAGING W/OUT INT ERPRETATION Final Result documented in this encounter Visit Diagnoses Not on filedocumented in this encounter Additional Source Comments The information contained in this document represents components of the legal health record. It is not the complete legal health record.[facility]
--- NOTE | 2025-09-06 09:26 | MHC.OFFVIS ---
Vital Signs 09/06/25 09:29 Height 5 ft 2.5 in Weight 165 lb 8 oz BMI 29.8 BP 126/82 Blood Pressure Location Lt brachial Position Sitting Pulse 68 Pulse Source Pulse Oximeter Pulse Oximetry (%) 96 Oxygen Delivery Method Room Air Intake Visit Reasons: Follow Up 1yr Intake Note: Patient presents follow up CHARLI. Compliance in chart(85/90days, >=4hrs-83%, Average Usage-6hr 3min, Med Pressure-8.9, Med Leaks-8.7, AHI-0.4). Accompanied by: Self / Same As Patient Allergies azathioprine (From IMURAN) Allergy (Unknown, Verified 09/06/25 09:33) ABNORMAL LABS,HIVES etanercept (From ENBREL) Allergy (Unknown, Verified 09/06/25 09:33) HIVES infliximab (From REMICADE) Allergy (Unknown, Verified 09/06/25 09:33) RASH levofloxacin Allergy (Unknown, Verified 09/06/25 09:33) GI Upset nickel (NICKEL) Allergy (Unknown, Verified 09/06/25 09:33) UNKNOWN tramadol Adverse Reaction (Verified 09/06/25 09:33) Nausea, sweating, dizzy HPI Comments Details: 70 y/o female patient presents for follow up of CHARLI on CPAP therapy. CHARLI Compliance is reviewed with pt. 05/2025-08/2025 Total use is 85/90 days and >4hours is 83%. Avg use is 6hrs. Med press 8.9cmH20 and Leaks 8.7/min, AHI is She washes her mask, rinses hoses, changes filters and fills reservoir with water She was very stressed the night of the HST, and did not sleep well, she is usually fatigued 2-3x in the afternoons. Pt reports she still has sinus issue, congestion and phlegm in the morning. She has new CPAP with her nasal pillows, pressures are good for her, leaks have improved. She orders her supplies from [employer] in [place]. RLS symptoms of paresthesias r>l, this wakes her up at night, though the discomfort is worse during the daytime. She has been a bit more stressed lately with her health concerns, pancreatic cancer q 6months she is monitored by [facility] in [place], due to increased nodules. 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 BP has improved. STM is poor at baseline, however improved with use of cpap. She stays active, volunteers in the [employer] center and Tuesdays of the month, she is involved with the community and takes care of her 92 year old mother in law. 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 Thyroid nodule Right tibial fracture Tobacco abuse Fractured coccyx Pulmonary nodule History of DVT (deep vein thrombosis) Behcet's syndrome COPD (chronic obstructive pulmonary disease) Osteoporosis Anxiety GERD (gastroesophageal reflux disease) Malignant neoplasm of pancreas, unspecified Obstructive sleep apnea Surgical History History of back surgery History of surgery History of colonoscopy History of varicose veins of lower extremity History of surgery History of pancreatic surgery History of open reduction and internal fixation (ORIF) procedure H/O splenectomy History of cholecystectomy Family History Father Diabetes Advanced cardiac disease Mother Asthma Osteoporosis Brain cancer Brother Lung cancer Sister Breast cancer History of Coumadin therapy Brother Colostomy in place Daughter No problems noted. Son No problems noted. Social History Household Members: None Housing: House Do you presently have visiting nurse or other home services: No Alcohol intake: never Patient Tobacco Use Status: Current everyday Tobacco user Tobacco use type: Cigarette Cigarette Packs Per Day: 0.5 Cigarettes Per Day: 10 Years Smoked: 49 , still smoking (05/2025) e-Cigarette/Vaping Use: Never Used Second Hand Smoke Exposure: No Advance Directives Date on File: 12/11/21 service: No Current occupational status: retired Cognitive needs: No Hearing needs: No Vision needs: Yes Review of Systems ENT Reports Normal hearing present Neuro Reports Normal hearing present Physical Exam Vital Signs: Last Vital Signs Pulse 68 09/06/25 09:29 BP 126/82 09/06/25 09:29 Pulse Ox 96 09/06/25 09:29 Oxygen Delivery Method Room Air 09/06/25 09:29 BMI result Body Mass Index 29.8 Const Orientation/consciousness: patient oriented x3 Eyes Pupils: Equal, round and reactive pupils present Neck Neck: Yes full ROM and Yes supple Resp Effort & Inspection: normal respiratory effort and able to speak in complete sentences Neuro General: patient oriented x3, gait normal and moves all extremities Cranial nerves: Yes Equal, round and reactive pupils present, Yes Normal facial strength present, Yes Midline tongue present, Yes Normal hearing present, Yes Ability to bilaterally rotate head present and Yes Ability to bilaterally elevate shoulders present Cognition (Neuro): normal cognition Gait exam (Neuro): Normal gait present and Antalgic gait present Motor exam (neuro): 5/5 motor strength present throughout, Pronator motor function not present and no tremor noted Psych Appearance: grossly normal Mental Status: mental status grossly normal Speech and movement: Normal speech and movement present Affect: normal affect Attitude: cooperative Results Reviewed Results Reviewed: CHARLI Compliance is reviewed with pt. 05/2025-08/2025 Total use is 85/90 days and >4hours is 83%. Avg use is 6hrs. Med press 8.9cmH20 and Leaks 8.7/min, AHI is She washes her mask, rinses hoses, changes filters and fills reservoir with water Assessment & Plan Assessment & Plan (1) Obstructive sleep apnea: Comment: Study done 01/02/2023 mild charli, AutoPAP 5-15 cm of water Code(s): G47.33 - Obstructive sleep apnea (adult) (pediatric) Category: Medical (2) Mood complaints in sleep disorder: Code(s): G47.9 - Sleep disorder, unspecified Category: Medical (3) Fatigue due to depression: Code(s): F32.A - Depression, unspecified; R53.83 - Other fatigue Category: Medical (4) Daytime sleepiness: Code(s): R40.0 - Somnolence Category: Medical Plan Pt is advised to adjust temperature on her machine for dry mouth, drink plenty of water through the day, limit fluid intake 2-4 hours prior to bedtime. Sleep hygiene education provided. Exercise, such as low intensity yoga for stress and mood. RLS / bilateral paresthesias Will start her on 100mg gabapentin at bedtime for peripheral neuropathy, as A1c is now 7.7. Mood irritability continue SR Wellbutrin for mood and anxiety. Advised patient to continue to use CPAP daily, adjust temperature of the room, and try a humidifier or plants in the room to bring moisture into the air. Pt to f/u in 6months. Medications: New gabapentin 100 mg PO BEDTIME 90 caps 0RF 3 months Patient Instructions: Please complete the following fasting labs to rule out deficiencies. CBC/CMP/ B12/ Vit D/ TSH/ Homocysteine and MMA/ Ferritin. Sleep Hygiene provided: set a scheduled bedtime and wake time to help regulate the circadian rhythm and balance the release of pituitary hormones. Sleep in a dark room, temperatures below 68 degrees, and no devices n bed. Limit caffeinated products 6 hours prior to bed, and limit fluids 2-4 hours prior to bed. Gentle night yoga, diffusing essential oils, and playing soft music can be relaxing. Coding Level of Care Code Est Pt Level 4 (19437) Diagnoses Obstructive sleep apnea G47.33 Mood complaints in sleep disorder G47.9 Fatigue due to depression F32.A; R53.83 Daytime sleepiness R40.0
[2025-09-06 09:29] VITALS: BP 126/82; PULSE 68; O2SAT 96; BMI 29.8
--- OUTSIDE RECORDS SUMMARY | 2025-09-06 10:32 | XMS_ITS | Encounter Summary ---
Author Organization [facility] Address [address] [place] [address] Phone Care Team Providers Care Leather Sorter Name Role Phone Gloria Villarreal MD Primary Care Provider [phone] Encounter Details Date Type Department Care Team (Latest Contact Info) Description 01/02/2023 Transcribe Orders Virtual Department [address] [place] [address] Julee Castrejon CNP [address] [place] [address] [email or web address] Abnormal findings on diagnostic [...] Primary documented in this encounter Care Teams Leather Sorter Relationship Specialty Start Date End Date Gloria Villarreal MD [address] [place] [address] PCP - General Internal Medicine 04/15/22 documented as of this encounter Additional Source Comments The information contained in this document represents components of the legal health record. It is not the complete legal health record.[facility]
--- OUTSIDE RECORDS SUMMARY | 2025-09-06 10:32 | XMS_ITS | Encounter Summary ---
Author Organization [facility] Address [address] [place] [address] Phone Care Team Providers Care Content Management Consultant Name Role Phone Pcp, Unknown Primary Care Provider Unavailaminata e Gloria Villarreal MD Primary Care Provider [phone] Encounter Details Date Type Department Care Team (Late st Contact Info) Description 04/10/2022 Procedure Pass [address] [place] [address] Social History Tobacco Use Types Packs/Day Years [...] on filedocumented in this encounter Care Teams Content Management Consultant Relationship Specialty Start Date End Date Pcp, Unknown PCP - General 04/10/22 04/14/22 Gloria Villarreal MD [address] [place] [address] PCP - General Internal Medicine 04/15/22 documented as of this encounter Additional Source Comments The information contained in this document represents components of the legal health record. It is not the complete legal health record.[facility]
--- OUTSIDE RECORDS SUMMARY | 2025-09-06 10:32 | XMS_ITS | Encounter Summary ---
Author Organization [facility] Address [address] [place] [address] Phone Care Team Providers Care Network Support Technician Name Role Phone Pcp, Unknown Primary Care Provider Gloria Dahl MD Primary Care Provider [phone] Reason for Referral * MRI/CAT Scan - Closed Specialty Diagnoses / Procedures Referred By Contac t Referred To Contact Radiology Diagnoses LLQ abdominal pain Abnormal findings on diagnostic imaging of liver and biliary tract Procedures MRI Pelvis (GI/) Lee Albarran MD Phone: tel: fax: [email or web address] Referral ID Status Reason Start Date Expiration Date Visits Re quested Visits Authorized [id number] Closed 04/10/2022 04/10/2023 1 1 * MRI/CAT Scan - Closed Specialty Diagnoses / Procedures Referred By Contac t Referred To Contact Radiology Diagnoses LLQ abdominal pain Abnormal findings on diagnostic imaging of liver and biliary tract Procedures MRI Cholangiopancreatography (MRCP) Lee Albarran MD Phone: tel: fax: mailto:[email or web address] Referral ID Status Reason Start Date Expiration Date Visits Re quested Visits Authorized [id number] Closed 04/10/2022 04/10/2023 1 1 Encounter Details Date Type Department Care Team (Latest Contact Info) Description 04/10/2022 Transcribe Orders Virtual Department [address] [place] [address] Julee Castrejon CNP [address] [place] [address] LLQ abdominal pain (Primary Dx); Abnormal findings [...] tract documented in this encounter Care Teams Network Support Technician Relationship Specialty Start Date End Date Pcp, Unknown PCP - General 04/10/22 04/14/22 Po, Gloria Taylor MD [address] [place] [address] PCP - General Internal Medicine 04/15/22 documented as of this encounter Additional Source Comments The information contained in this document represents components of the legal health record. It is not the complete legal health record.[facility]
--- OUTSIDE RECORDS SUMMARY | 2025-09-06 10:32 | XMS_ITS | Clinical Summary ---
Author Organization [facility] Address [address] [place] [address] Care Team Providers Care Comber Tender Name Role Phone Destin Holt MD Primary [...] 1955 Fall Risk Screening 2019 COVID-19 Vaccine (2024- season) 2025 RSV Immunization ( o r 60+ Years) (1 - 1-dose 75+ series) 2029 Care Teams Comber Tender Relationship Specialty Start Date End Date Destin Holt MD [address] [facility] [address] PCP - General 06/05/10
--- OUTSIDE RECORDS SUMMARY | 2025-09-06 10:33 | XMS_ITS | Clinical Summary ---
Author Organization [facility] Address [address] [place] [address] Phone Care Team Providers Care Track Patrol Name Role Phone Gloria Villarreal MD Primary Care Provider [phone] Allergies Active Allergy Reactions Criticality Noted Date [...] VACCINES (50+ years) (3 of 3 - PCV20 or PCV21) 11/11/2022 11/11/2017, 11/11/2017 CREATININE LEVEL 04/10/2023 04/10/2022 POTASSIUM LEVEL 04/10/2023 04/10/2022 INFLUENZA VACCINE (#1) 2025 2, 06/09/2021, 04/24/2020, Additional history exists COVID-19 VACCINE ( - season) 2025 09/06/2021, 11/23/2020, 10/26/2020 Adult Td,Tdap [...] this topic Medical Devices Implanted Type Area Magnetic Tape Winder Device Identifier Shelf Expiration Date Model / Serial / Lot R Knee Pin Procedures Procedure Name Priority Date/Time Associated Diagnosis Comments ENDOSCOPY, COLON 07/08/2022 8:59 AM EDT COMPREHENSIVE METABOLIC PANEL (CMP) Routine 04/10/2022 10:16 AM EDT Abdominal pain, [...] 68 Admit Type: Outpatient Gender: Female Room: [place] [address] Referring MD: Gloria Villarreal MD Exam Type: Colonoscopy Indications: Colon cancer screening in patient at [facility]: Colorectal cancer in brother, Last colonoscopy 5years [...] monitored continuously. The Olympus adult variable colonoscope [id number] #3 was introduced through the anus and [...] or abscess without bleeding CPT copyright 2020 [employer]. All rights reserved. The codes documented in this report are preliminary and upon tunnel miner reviewmay be revised to meet current compliance requirements. Procedure Date: 07/08/2022 8:59:[address] [place] [address] Gloria Villarreal MD GI PROCEDURE ORDERABLES Final Result * (ABNORMAL) Comprehensive metabolic panel (04/10/2022 10:16 AM EDT) SODIUM 139 133 - 146 mmol/L [facility] POTASSIUM 4.1 3.3 - 5.1 mmol/L [facility] CHLORIDE 102 96 - 108 mmol/L [facility] CO2 27 21 - 35 mmol/L [facility] BUN 11 6 - 19 mg/dL [facility] CREATININE 0.60 0.5 - 1.5 mg/dL [facility] GLUCOSE 161(H) 70 - 99 mg/dL [facility] ALBUMIN 4.6 3.9 - 4.8 g/dL [facility] TOTAL PROTEIN 7.2 6.5 - 8.0 g/dL [facility] CALCIUM 9.6 8.4 - 10.3 mg/dL [facility] ALKALINE PHOSPHATASE 87 39 - 117 U/L [facility] TOTAL BILIRUBIN 0.2 0.0 - 1.2 mg/dL [facility] AST 21 0 - 37 U/L [facility] ALT 20 0 - 40 U/L [facility] GLOBULIN 2.6 1 - 4.8 g/dL [facility] EGFR 98 >59 mL/min/1.7 3m2 [facility] Comment:Estimated glomerular filtration rate calculated using the CKD-EPI refit equation. ANION GAP 14 10 - 20 mmol/L [facility] Blood 04/10/2022 10:1 6 AM EDT 04/10/2022 10:21 AM EDT Julee Castrejon CNP LAB BLOOD BKR ORDERABLES F inal Result [facility] [address] [place] [address] from Last 3 Months or Most Recently Relevant to Health Maintenance Insurance MEDICARE PART A & B [employer] MEDICARE ENHANCE SUPPLEMENT MEDICARE PART A & B [facility] MEDICARE ENHANCE SUPPLEMENT MEDICARE PART A & B [facility] MEDICARE ENHANCE SUPPLEMENT MEDICARE PART A & B Member Subscriber Plan / Payer ( fective 2019-) Name:Ana Barajas Member ID:[id number] Relation to Subscriber:Self Name:Ana Barajas Subscriber ID:[id number] Payer ID:[id number] Group ID:Not on file Type:Medicare Address: Social[employer] [address] [facility] MEDICARE ENHANCE SUPPLEMENT MEDICARE PART A & B Member Subscriber Plan / Payer ( fective 2019-Present) Name:Ana Barajas Member ID:[id number] Relation to Subscriber:Self Name:Ana Barajas Subscriber ID:[id number] Payer ID:[id number] Group ID:Not on file Type:Medicare Address: [employer] [address] [place] [address] [place] [address] MEDICARE ENHANCE SUPPLEMENT MEDICARE PART A & B [facility] MEDICARE ENHANCE SUPPLEMENT MEDICARE PART A & B [facility] MEDICARE ENHANCE SUPPLEMENT MEDICARE PART A & B [facility] MEDICARE ENHANCE SUPPLEMENT MEDICARE PART A & B [employer] MEDIC[employer] ENHANCE SUPPLEMENT Care Teams Track Patrol Relationship Specialty Start Date End Date Gloria Villarreal MD [address] [place] [address] [place] [address] PCP - General Internal Medicine 04/15/22 Additional Source Comments The information contained in this document represents components of the legal health record. It is not the complete legal health record.[facility]
--- OUTSIDE RECORDS SUMMARY | 2025-09-06 10:33 | XMS_ITS | Encounter Summary ---
Author Organization [facility] Address [address] [place] [address] Phone Care Team Providers Care Clipper Machine Name Role Phone Gloria Villarreal MD Primary Care Provider [phone] Encounter Details Date Type Department Care Team (Late st Contact Info) Description 07/08/2022 Procedure Pass [facility] Endoscopy Admitting Dept Virtual Department [address] [place] [address] Social History Tobacco Use Types Packs/Day Years [...] on filedocumented in this encounter Care Teams Clipper Machine Relationship Specialty Start Date End Date Gloria Villarreal MD [address] [place] [address] PCP - General Internal Medicine 04/15/22 documented as of this encounter Additional Source Comments The information contained in this document represents components of the legal health record. It is not the complete legal health record.[facility]
--- OUTSIDE RECORDS SUMMARY | 2025-09-06 10:33 | XMS_ITS | Encounter Summary ---
Author Organization [facility] Address [address] [place] [address] Phone Care Team Providers Care Rental Counter Clerk Name Role Phone Pcp, Unknown Primary Care Provider Unavailaminata e Gloria Villarreal MD Primary Care Provider [phone] Encounter Details Date Type Department Care Team (Late st Contact Info) Description 04/10/2022 Procedure Pass [address] [place] [address] Social History Tobacco Use Types Packs/Day Years [...] on filedocumented in this encounter Care Teams Rental Counter Clerk Relationship Specialty Start Date End Date Pcp, Unknown PCP - General 04/10/22 04/14/22 Gloria Villarreal MD [address] [place] [address] PCP - General Internal Medicine 04/15/22 documented as of this encounter Additional Source Comments The information contained in this document represents components of the legal health record. It is not the complete legal health record.[facility]
== END 2025-09-06 10:22 | disposition home or self-care (01) ==
LOC: HO.HSMS 09:13
PROVIDERS: PCP Internal Medicine; Visit Provider Physician Assistant Medical
DX: G47.33 Obstructive sleep apnea (adult) (pediatric) (principal); G47.9 Sleep disorder, unspecified; F32.A Depression, unspecified; R53.83 Other fatigue; R40.0 Somnolence
CPT/HCPCS: 99214

== ENCOUNTER → 2025-09-06 09:12 | Outpatient (BNVA) | payer MEDICARE, OTHER, SELFPAY | PROVIDERS: PCP Internal Medicine; Visit Provider Physician Assistant Medical | DX: G47.33 Obstructive sleep apnea (adult) (pediatric) (principal); G47.9 Sleep disorder, unspecified; R40.0 Somnolence; R53.83 Other fatigue; F32.A Depression, unspecified; Z99.89 Dependence on other enabling machines and devices | CPT/HCPCS: 99212 ==

== ENCOUNTER 2025-09-07 08:16 | Outpatient (REF) | payer MEDICARE, OTHER, SELFPAY ==
--- OUTSIDE RECORDS SUMMARY | 2012-03-31 23:00 | XMS_ITS | Encounter Summary ---
Author Organization [facility] Address [address] [place] [phone] Phone Care Team Providers Care Belt Changer Name Role Phone Unavailable Primary Care Provider Unavailabl e Encounter Details Date Type Department Care Team (Late st Contact Info) Description 04/01/2012 Hospital Encounter [facility],Outside Imaging [address] [place] [address] Unknown, Unknown, Social History Tobacco Use Types Packs/Day Years Used Date Smoking Tobacco: Some Days Smokeless Tobacco: Never Comments:few cigarettes a fe w days a week Alcohol Use Standard Drinks/Week Comments Not Currently 0 (1 standard drink = 0.6 oz pur e alcohol) Education Answer Date Recorded Are you interested in more education? Not on arthur e 01/18/2023 Are you concerned about learning? Not on file 01/18/2023 No 01/18/2023 No 01/18/2023 Digital Access Answer Date Recorded No 02/18/2023 No 02/18/2023 Reliable internet access at home? Not on file 02/18/2023 Device with a working camera? Not on file Comments Unknown Sex and Gender Information Value Date Recorded Sex Assigned at Not on file Legal Sex Female 9:58 AM EDT Gender Identity Not on file Sexual Orientation Not on file documented as of this encounter Plan of Treatment Not on file documented as of this encounter Procedures Procedure Name Priority Date/Time Associated Diagnosis Comments MRI SPINE MUSCULOSKELETAL FOCUS OUTSIDE (NO INTERPRETATION) Routine 04/01/2012 12:00 AM EDT documented in this encounter Results * MRI Spine (Bone) Outside (No Interpretation) (04/01/2012 12:00 AM EDT) Narrative SYSTEMGENERATED, DOCUMENTATION - 04/26/2022 6:52 AM EDT This study is for PACS storage only and not for interpretation. us Unknown Unknown MD KRISHNA OUTSIDE IMAGING W/OUT INT ERPRETATION Final Result documented in this encounter Visit Diagnoses Not on filedocumented in this encounter Additional Source Comments The information contained in this document represents components of the legal health record. It is not the complete legal health record.[facility]
--- OUTSIDE RECORDS SUMMARY | 2013-08-27 | XMS_ITS | Encounter Summary ---
Author Organization [facility] Address [address] [place] [phone] Phone Care Team Providers Care Senior Software Project Manager Name Role Phone Unavailable Primary Care Provider Unavailabl e Encounter Details Date Type Department Care Team (Late st Contact Info) Description 08/27/2013 Hospital Encounter [facility],Outside Imaging [address] [place], [place] [phone] Unknown, Unknown, Social History Tobacco Use Types [...] It is not the complete legal health record.[facility]
--- NOTE | ~2025-09-07 | US_ITS ---
EXAMINATION: US THYROID CLINICAL INFORMATION: Goiter COMPARISON: September 03, 2024. TECHNIQUE: Linear transducer grayscale and color Doppler examination with attention to the region of the thyroid. FINDINGS: SIZE: Measurements of the thyroid lobes and nodules are given in sagittal, anteroposterior and transverse dimensions respectively. Right Thyroid Lobe: 4.6 x 1.9 x 1.8 cm, volume 7.9 mL. Previous: 4.4 x 1.9 x 1.6 cm, volume: 7.0 cc. Parenchyma: The gland echotexture is heterogeneous. Thyroid vascularity is increased. Left Thyroid Lobe: 4.2 x 2.2 x 1.7 cm, volume 8.7 mL. Previous: 4.4 x 2.0 x 1.9 cm, volume: 8.8 cc. Parenchyma: The gland echotexture is heterogeneous. Thyroid vascularity is increased. Isthmus: 0.51 cm in maximum AP dimension. Previous: 0.50 cm. Estimated total number of nodules greater than or equal to 1 cm: 2. [employer] nodules are described as follows: 1. Location: The upper pole left lobe. Size: 1.4 x 1.0 x 1.1 cm, volume 0.80 mL. Previous: 1.5 x 0.97 x 1.1 cm, volume: 0.80 cc. Nodule characteristics: Composition: Spongiform (0). Echogenicity: Shape: Margins: Echogenic Foci: ACR TI-RADS total points: 0 ACR TI-RADS category: 1 2. Location: The midportion left lobe. Size: 1.1 x 0.6 x 1.1 cm, volume 0.40 mL. Previous: 1.2 x 0.7 x 0.9 cm, volume: 0.38 cc. Nodule characteristics: Composition: Spongiform (0). Echogenicity: Shape: Margins: Echogenic Foci: ACR TI-RADS total points: 0 ACR TI-RADS category: 1 3. Location: The upper pole right lobe. Size: 0.35 x 0.37 x 0.40 cm, volume 0.03 mL. Previous: Not seen. Nodule characteristics: Composition: Spongiform (0). Echogenicity: Shape: Margins: Echogenic Foci: ACR TI-RADS total points: 0 ACR TI-RADS category: 1 4. Location: The upper pole right lobe. Size: 0.42 x 0.4 x 0.5 cm, volume 0.04 mL. Previous: 0.4 x 0.3 x 0.4 cm, volume: 0.02 cc. Nodule characteristics: Composition: Spongiform (0). Echogenicity: Shape: Margins: Echogenic Foci: ACR TI-RADS total points: 0 ACR TI-RADS category: 1 5. Location: Lower pole left lobe. Size: 0.5 x 0.3 x 0.45 cm, volume 0.04 mL. Previous: 0.24 x 0.57 x 0.44 cm, volume: 0.03 cc. Nodule characteristics: Composition: Spongiform (0). Echogenicity: Shape: Margins: Echogenic Foci: ACR TI-RADS total points: 0 ACR TI-RADS category: 1 NODES: No lymphadenopathy is seen in the tissue surrounding the thyroid gland. US/US thyroid IMPRESSION: ACR TI RADS category 1 ACR TI-RADS RECOMMENDATION REFERENCE: Ultrasound-guided fine-needle aspiration, followup ultrasound, no further follow up. * TR1 (0 point) and TR2 (2 points): No FNA or follow up. * TR3 (3 points): FNA if more than or equal to 2.5 cm in maximum dimension, followup ultrasound in 1, 3 and 5 years if 1.5 to 2.4 cm in maximum dimension. * TR4 (4-6 points): FNA if more than or equal to 1.5 cm in maximum dimension, followup ultrasound in 1, 2, 3 and 5 years if 1 to 1.4 cm in maximum dimension. * TR5 (more than or equal to 7 points): FNA if more than or equal to 1 cm in maximum dimension, followup ultrasound every year for 5 years if 0.5 to 0.9 cm in maximum dimension. * TR3, TR4 or TR5 nodules that are below the size threshold for followup receive no follow up. Electronically signed by: Richard Forbes MD 09/07/2025 09:34 AM EST
--- OUTSIDE RECORDS SUMMARY | 2025-09-07 08:25 | XMS_ITS | Patient Health Record ---
Author Organization [facility] Address [address] [place] [address] Care Team Providers Care Windows And Doors Installer Name Role Phone PhilMichelleovidio Primary Care Provider Unavailabl e Black, Chelsie Unavailable [phone] Allergies Allergen (clinical drug ingredient) Drug/Non Drug Allergy documented on EMR Reaction Allergy Type Onset Date Status azathioprine Imuran Unknown Drug Allergy Acti ve infliximab Remicade rash Drug Allergy Active dexamethasone Dexamethasone blood pressure goes up Drug Allergy Active etanercept Etanercept hives,welt,itc jay jay Drug Allergy Active nickel Nickel Unknown Allergy Active Results Component Value Reference Range Notes HEMOGLOBIN A1C (GLYCOHEMOGLO BIN) Reviewed date:06/02/2025 08:03:13 [...] Problem Acquired hammer toe of right foot (2278647353206072 ) Other hammer toe(s) (acquired), right foot (M20.41) Active confirmed Problem Acquired hammer toe of left foot (7325400251162770 ) Other hammer toe(s) (acquired), left foot (M20.42) Active confirmed Problem Polyneuropathy due to diabetes mellitus type I (381631338) Type 1 diabetes mellitus with diabetic polyneuropathy (E10.42) Active confirmed Vital Signs Blood pressure diastolic 76 mm Hg 06/02/2025 Height 5ft 2in in 06/02/2025 Blood pressure systolic 130 mm Hg 06/02/2025 Weight 160 lbs 06/02/2025 BMI 29.26 kg/m2 06/02/2025 Procedures Procedure Date Ordered Date Performed Result Body Sit e 09631-DPZMUUS NAIL, 6 OR MORE 11/15/2024 N/A 01686-Pumffdkt Plate 11/15/2024 N/A 76216-YCZX SKIN LESIONS, 2 TO 4 11/15/2024 N/A 98308-DYIZQPY NAIL, 6 OR MORE 02/21/2025 N/A 07950-BTUD SKIN LESIONS, 2 TO 4 02/21/2025 N/A 66048-PBKUPXC NAIL, 6 OR MORE 06/02/2025 N/A 18963-Ukzlxnmf Plate 06/02/2025 N/A 62298-AEYY SKIN LESIONS, 2 TO 4 06/02/2025 N/A Encounters Encounter Location Date Provider Diagnosis [address] [address] 11/15/2024 Chelsie Li Type 1 diabetes mellitus with diabetic polyneuropathy E10.42 ; Tinea unguium B35.1 ; Ingrown nail L60.0 and Xerosis of skin L85.[address] [address] 02/21/2025 Chelsie Li Type 1 diabetes mellitus with diabetic polyneuropathy E10.42 ; Other hammer toe(s) (acquired), right foot M20.41 ; Tinea unguium B35.1 ; Xerosis of skin L85.3 and Other hammer toe(s) (acquired), left foot M20.[address] [address] 06/02/2025 Chelsie Li Type 1 diabetes mellitus with diabetic polyneuropathy E10.42 ; Tinea unguium B35.1 and Ingrown nail L60.[address] [address] 04/19/2025 Chelsiejodie Li [address] [address] 08/09/2025 Chelsie Li Assessments Encounter Date Diagnosis (ICD [...] B35.1) 02/21/2025 Tinea unguium (ICD-10 - B35.1) 02/21/2025 Xerosis of skin (ICD-10 - L85.3) 11/15/2024 Ingrown nail (ICD-10 - L60.0) 11/15/2024 Xerosis of skin (ICD-10 - L85.3) 02/21/2025 Other hammer toe(s) (acquired), left foot (ICD-10 - M20.42) 06/02/2025 Other Plan Of Treatment Pending Test Test Name Order Date 94569-XGMCODS NAIL, 6 OR MORE 02/04/2019 63156-GCGMNLW NAIL, 6 OR MORE 05/06/2019 79032-SVUYPOG NAIL, 6 OR MORE 08/09/2019 08117-CZDNASJ NAIL, 6 OR MORE 11/04/2019 49327-SBQOJCR NAIL, 6 OR MORE 02/10/2020 46943-FZPFAXV NAIL, 6 OR MORE 05/15/2020 48340-IUMIJZD NAIL, 6 OR MORE 08/21/2020 16210-WPCOQUO NAIL, 6 OR MORE 11/20/2020 18833-QZOALCT NAIL, 6 OR MORE 03/22/2021 45352-KMMLRHG NAIL, 6 OR MORE 07/05/2021 43661-GPXPWNA NAIL, 6 OR MORE 09/20/2021 76535-ETRFULL NAIL, 6 OR MORE 12/17/2021 89959-ZBBGTAT NAIL, 6 OR MORE 03/04/2022 63212-NIEYPSO NAIL, 6 OR MORE 05/16/2022 19786-RSKVTKM NAIL, 6 OR MORE 07/22/2022 63393-CRYRTLC NAIL, 6 OR MORE 10/31/2022 48567-AJGCVXF NAIL, 6 OR MORE 01/09/2023 17000-QHTGALP NAIL, 6 OR MORE 03/20/2023 15193-AKEOTAW NAIL, 6 OR MORE 06/09/2023 92867-ZEWVQBB NAIL, 6 OR MORE 08/25/2023 52302-GPPILDI NAIL, 6 OR MORE 12/01/2023 62236-SGQCCCT NAIL, 6 OR MORE 02/04/2024 31170-MBQNNUM NAIL, 6 OR MORE 05/07/2024 91829-CBXXVJF NAIL, 6 OR MORE 08/12/2024 03765-XAKANSB NAIL, 6 OR MORE 11/15/2024 47043-MTEFHJB NAIL, 6 OR MORE 02/21/2025 10659-YTHTDZA NAIL, 6 OR MORE 06/02/2025 58836-SBRAAOJ NAIL, 1-5 02/20/2015 30386-Pwuqoqkp Plate 08/09/2019 98803-Iyfgvvip Plate 12/17/2021 70044-Spznnwup Plate 05/15/2020 47816-Cndjgupx Plate 11/20/2020 93727-Gowndlbu Plate 12/01/2023 52804-Volmucws Plate 10/31/2022 06218-Xgsgdhle Plate 07/05/2021 07194-Klsjwhcx Plate 11/15/2024 02868-Yjukjsah Plate 06/02/2025 20881-Jjilvpbc Plate Each Additional 05/2023 60593-Uwibcxfc Plate Each Additional 07/2024 94415-Mhpwfarh Plate Each Additional 24427-Nzzbaxpl Plate Each Additional 58231- Debride <25 sq cm 06/09/2023 02953 I&D ABSCESS- SIMPLE,SINGLE 024 43362-NNBU SKIN LESIONS, OVER 4 06/09/20 23 38927-BCSB SKIN LESIONS, OVER 4 08/25/20 23 21733-HFHW SKIN LESIONS, OVER 4 01/10/20 23 65014-GOMZ SKIN LESIONS, OVER 4 03/20/20 23 88352-EKHS SKIN LESIONS, 2 TO 4 10/31/19 23 55758-ULHW SKIN LESIONS, 2 TO 4 07/22/20 67779-FETI SKIN LESIONS, 2 TO 4 05/16/20 44213-MGKD SKIN LESIONS, 2 TO 4 02/04/20 01425-CVMP SKIN LESIONS, 2 TO 4 12/01/19 28423-LFLX SKIN LESIONS, 2 TO 4 02/22/20 29595-BXGX SKIN LESIONS, 2 TO 4 11/15/19 73562-XTIO SKIN LESIONS, 2 TO 4 08/12/20 57195-BAAO SKIN LESIONS, 2 TO 4 05/07/20 53408-TDGO SKIN LESIONS, 2 TO 4 08/09/20 97107-JMHH SKIN LESIONS, 2 TO 4 02/05/20 39650-MUTN SKIN LESIONS, 2 TO 4 05/06/20 77484-VXAA SKIN LESIONS, 2 TO 4 08/21/20 74836-BBRF SKIN LESIONS, 2 TO 4 05/15/20 13354-SECH SKIN LESIONS, 2 TO 4 02/10/20 35287-XKJI SKIN LESIONS, 2 TO 4 11/04/19 45265-EGWB SKIN LESIONS, 2 TO 4 03/04/20 62073-UGRH SKIN LESIONS, 2 TO 4 12/18/19 42505-VFPL SKIN LESIONS, 2 TO 4 09/20/20 60557-ZDWC SKIN LESIONS, 2 TO 4 11/21/19 81158-MAHO SKIN LESIONS, 2 TO 4 07/05/20 19659-QAMP SKIN LESIONS, 2 TO 4 03/22/20 26048-ZFMP SKIN LESIONS, 2 TO 4 06/02/20 82642- Removal of Foreign Body, Subcut 0 02/04/2024 Next Appt Details Provider Name:Chelsie Li , 09/12/2025 01:45:00 PM, [address], [place], [address], Insurance Providers Payer Name Payer Address Payer Phone Subscriber Number Group Number Insured Name Patient Relationship to Insured Coverage Start Date Coverage End Date Medicare National [employer]t [employer] [address] [place] [address] [id number] Ana Childress Self - patient is the insured [facility] [address] [place] [phone] [id number] Ana Childress Self - patient is the [...] infectio n, traveled from leg to ankle- [facility] right leg 05/29/24 Hospitalization History Reason Date(Month/Year) [facility]- Was on Pre dnisone for swelling feet and legs- 2 nights 12/10/2021 [facility] - Hospitalized f or feet/Leg swelling-Left hospital because was on bed in hallway 22 hrs 11/2021 [facility] bladder cancer treatments-Ended 11/2910/25/2021
--- OUTSIDE RECORDS SUMMARY | 2025-09-07 08:25 | XMS_ITS | Encounter Summary ---
Author Organization [facility] Address [address] [place] [address] Phone Care Team Providers Care Respiratory Therapist Name Role Phone Pcp, Unknown Primary Care Provider Gloria Dahl MD Primary Care Provider Reason for Referral * MRI/CAT Scan - Closed Specialty Diagnoses / Procedures Referred By Contac t Referred To Contact Radiology Diagnoses LLQ abdominal pain Abnormal findings on diagnostic imaging of liver and biliary tract Procedures MRI Pelvis (GI/) Lee Albarran MD Phone: tel: fax: mailto:[email or web address] Referral ID Status Reason Start Date Expiration Date Visits Re quested Visits Authorized [id number] Closed 04/10/2022 04/10/2023 1 1 * MRI/CAT Scan - Closed Specialty Diagnoses / Procedures Referred By Contac t Referred To Contact Radiology Diagnoses LLQ abdominal pain Abnormal findings on diagnostic imaging of liver and biliary tract Procedures MRI Cholangiopancreatography (MRCP) Lee Albarran MD Phone: tel: fax: mailto:[email or web address] Referral ID Status Reason Start Date Expiration Date Visits Re quested Visits Authorized [id number] Closed 04/10/2022 04/10/2023 1 1 Encounter Details Date Type Department Care Team (Latest Contact Info) Description 04/10/2022 Transcribe Orders Virtual Department [address] [place] [address] Julee Castrejon CNP [address] [place] [address] [email or web address] LLQ abdominal pain (Primary Dx); Abnormal findings [...] tract documented in this encounter Care Teams Respiratory Therapist Relationship Specialty Start Date End Date Pcp, Unknown PCP - General 04/10/22 04/14/22 Po, Gloria Taylor MD [address] [place] [address] PCP - General Internal Medicine 04/15/22 documented as of this encounter Additional Source Comments The information contained in this document represents components of the legal health record. It is not the complete legal health record.[facility]
--- OUTSIDE RECORDS SUMMARY | 2025-09-07 08:25 | XMS_ITS | Encounter Summary ---
Author Organization [facility] Address [address] [place] [address] Phone Care Team Providers Care Media Strategist Name Role Phone Pcp, Unknown Primary Care Provider Unavailaminata e Gloria Villarreal MD Primary Care Provider [phone] Encounter Details Date Type Department Care Team (Late st Contact Info) Description 04/10/2022 Procedure Pass [address] [place] [address] Social History Tobacco Use Types Packs/Day Years [...] on filedocumented in this encounter Care Teams Media Strategist Relationship Specialty Start Date End Date Pcp, Unknown PCP - General 04/10/22 04/14/22 Gloria Villarreal MD [address] [place] [address] PCP - General Internal Medicine 04/15/22 documented as of this encounter Additional Source Comments The information contained in this document represents components of the legal health record. It is not the complete legal health record.[facility]
--- OUTSIDE RECORDS SUMMARY | 2025-09-07 08:25 | XMS_ITS | Encounter Summary ---
Author Organization [facility] Address [address] [place] [address] Phone Care Team Providers Care Business Services Vice President Name Role Phone Pcp, Unknown Primary Care Provider Unavailaminata e Gloria Villarreal MD Primary Care Provider [phone] Encounter Details Date Type Department Care Team (Late st Contact Info) Description 04/10/2022 Procedure Pass [address] [place] [address] Social History Tobacco Use Types Packs/Day Years [...] on filedocumented in this encounter Care Teams Business Services Vice President Relationship Specialty Start Date End Date Pcp, Unknown PCP - General 04/10/22 04/14/22 Gloria Villarreal MD [address] [place] [address] PCP - General Internal Medicine 04/15/22 documented as of this encounter Additional Source Comments The information contained in this document represents components of the legal health record. It is not the complete legal health record.[facility]
--- OUTSIDE RECORDS SUMMARY | 2025-09-07 08:25 | XMS_ITS | Clinical Summary ---
Author Organization [facility] Address [address] [place] [address] Phone Care Team Providers Care Director Women Name Role Phone Gloria Villarreal MD Primary Care Provider [phone] Allergies Active Allergy Reactions Criticality Noted Date [...] this topic Medical Devices Implanted Type Area Vacuum Form Operator Device Identifier Shelf Expiration Date Model [...] 68 Admit Type: Outpatient Gender: Female Room: [place] [address] Referring MD: Gloria Villarreal MD Exam Type: Colonoscopy Indications: Colon cancer screening in patient at [facility]: Colorectal cancer in brother, Last colonoscopy 5years [...] monitored continuously. The Olympus adult variable colonoscope [id number] #3 was introduced through the anus and [...] or abscess without bleeding CPT copyright 2020 [employer]. All rights reserved. The codes documented in this report are preliminary and upon hims coder reviewmay be revised to meet current compliance requirements. Procedure Date: 07/08/2022 8:59:[address] [place] [address] Gloria Villarreal MD GI PROCEDURE ORDERABLES Final Result * (ABNORMAL) Comprehensive metabolic panel (04/10/2022 10:16 AM EDT) SODIUM 139 133 - 146 mmol/L [facility] POTASSIUM 4.1 3.3 - 5.1 mmol/L [facility] CHLORIDE 102 96 - 108 mmol/L [facility] CO2 27 21 - 35 mmol/L [facility] BUN 11 6 - 19 mg/dL [facility] CREATININE 0.60 0.5 - 1.5 mg/dL [facility] GLUCOSE 161(H) 70 - 99 mg/dL [facility] ALBUMIN 4.6 3.9 - 4.8 g/dL [facility] TOTAL PROTEIN 7.2 6.5 - 8.0 g/dL [facility] CALCIUM 9.6 8.4 - 10.3 mg/dL [facility] ALKALINE PHOSPHATASE 87 39 - 117 U/L [facility] TOTAL BILIRUBIN 0.2 0.0 - 1.2 mg/dL [facility] AST 21 0 - 37 U/L [facility] ALT 20 0 - 40 U/L [facility] GLOBULIN 2.6 1 - 4.8 g/dL [facility] EGFR 98 >59 mL/min/1.7 3m2 [facility] Comment:Estimated glomerular filtration rate calculated using the CKD-EPI refit equation. ANION GAP 14 10 - 20 mmol/L [facility] Blood 04/10/2022 10:1 6 AM EDT 04/10/2022 10:21 AM EDT Julee Castrejon CNP LAB BLOOD BKR ORDERABLES F inal Result [facility] [address] [place] [address] from Last 3 Months or Most Recently Relevant to Health Maintenance Insurance MEDICARE PART A & B [employer] MEDICARE ENHANCE SUPPLEMENT MEDICARE PART A & B [facility] MEDICARE ENHANCE SUPPLEMENT MEDICARE PART A & B [facility] MEDICARE ENHANCE SUPPLEMENT MEDICARE PART A & B Member Subscriber Plan / Payer ( fective 2019-) Name:Ana Barajas Member ID:[id number] Relation to Subscriber:Self Name:Ana Barajas Subscriber ID:[id number] Payer ID:[id number] Group ID:Not on file Type:Medicare Address: [employer] [address] [facility] MEDICARE ENHANCE SUPPLEMENT MEDICARE PART A & B Member Subscriber Plan / Payer ( fective 2019-Present) Name:Ana Barajas Member ID:[id number] Relation to Subscriber:Self Name:Ana Barajas Subscriber ID:[id number] Payer ID:[id number] Group ID:Not on file Type:Medicare Address: [employer] [address] [place] [address] [place] [address] MEDICARE ENHANCE SUPPLEMENT MEDICARE PART A & B [facility] MEDICARE ENHANCE SUPPLEMENT MEDICARE PART A & B [facility] MEDICARE ENHANCE SUPPLEMENT MEDICARE PART A & B [facility] MEDICARE ENHANCE SUPPLEMENT MEDICARE PART A & B [employer] MEDIC[employer] ENHANCE SUPPLEMENT Care Teams Director Women Relationship Specialty Start Date End Date Gloria Villarreal MD [address] [place] [address] [place] [address] PCP - General Internal Medicine 04/15/22 Additional Source Comments The information contained in this document represents components of the legal health record. It is not the complete legal health record.[facility]
--- OUTSIDE RECORDS SUMMARY | 2025-09-07 08:25 | XMS_ITS | Clinical Summary ---
Author Organization [facility] Address [address] [place] [address] Care Team Providers Care Electrochemist Name Role Phone Destin Holt MD Primary [...] - 1-dose 75+ series) 2029 Care Teams Electrochemist Relationship Specialty Start Date End Date Destin Holt MD [address] [facility] [place] [address] PCP - General 06/05/10
--- OUTSIDE RECORDS SUMMARY | 2025-09-07 08:25 | XMS_ITS | Encounter Summary ---
Author Organization [facility] Address [address] [place] [address] Phone Care Team Providers Care Channel Account Manager Name Role Phone Gloria Villarreal MD Primary Care Provider [phone] Encounter Details Date Type Department Care Team (Latest Contact Info) Description 01/02/2023 Transcribe Orders Virtual Department [address] [place] [address] Julee Castrejon CNP [address] [place] [address] [email or web address] Abnormal findings on diagnostic imaging of liver [...] Primary documented in this encounter Care Teams Channel Account Manager Relationship Specialty Start Date End Date Gloria Villarreal MD [address] [place] [address] PCP - General Internal Medicine 04/15/22 documented as of this encounter Additional Source Comments The information contained in this document represents components of the legal health record. It is not the complete legal health record.[facility]
--- OUTSIDE RECORDS SUMMARY | 2025-09-07 08:26 | XMS_ITS | Encounter Summary ---
Author Organization [facility] Address [address] [place] [address] Phone Care Team Providers Care Customer Leader Name Role Phone Gloria Villarreal MD Primary Care Provider [phone] Encounter Details Date Type Department Care Team (Late st Contact Info) Description 07/08/2022 Procedure Pass [facility] Endoscopy Admitting Dept Virtual Department [address] [place] [address] Social History Tobacco Use Types Packs/Day Years [...] on filedocumented in this encounter Care Teams Customer Leader Relationship Specialty Start Date End Date Gloria Villarreal MD [address] [place] [id number] PCP - General Internal Medicine 04/15/22 documented as of this encounter Additional Source Comments The information contained in this document represents components of the legal health record. It is not the complete legal health record.[facility]
[2025-09-07 10:32] LABS: Appearance Urine Clear; Glucose Urine UA Negative (Negative); PH 7.0 (5.0-9.0); Specific Gravity - Urine 1.015 (1.005-1.025); UMIC TRIGGER UACC YES
[2025-09-07 10:42] LABS: MANUAL DIFF FLAG NO
[2025-09-07 10:44] LABS: UACC Culture Trigger YES
[2025-09-07 10:52] LABS: Hematocrit 41.7 % (37.0-47.0); Hemoglobin 14.1 g/dl (12.0-16.0); Imm Gran Abs Auto 0.02 X10*3/uL (0.00-0.03); Imm Gran Pct Auto 0.2 % (0.0-0.4); Lymphocytes Absolute Auto 3.7 X10*3/uL (1.2-4.9); Mean Corpuscular HGB Conc 33.8 g/dl (31.0-35.0); Mean Corpuscular Hemoglobin 30.8 pg (27.0-33.0); Mean Corpuscular Volume 91.0 fL (80.0-98.0); NRBC Abs Auto 0.000 X10*3/uL (0.0-0.012); NRBC Pct Auto 0.0 /100WBC (0.0-0.2); Platelet Count 355 X10*3/uL (160-400); Red Blood Count 4.58 X10*6/uL (4.20-5.50); White Blood Count 10.3 X10*3/uL (4.8-10.8)
[2025-09-07 11:17] LABS: Alanine Aminotransferase 39 U/L (0-31); Albumin Level 4.4 g/dL (3.5-5.0); Alkaline Phosphatase 108 U/L (39-117); Anion Gap 13 (12-20); Aspartate Amino Transferase 39 U/L (5-31); Blood Urea Nitrogen 15 mg/dL (9-16); Calcium 9.3 mg/dL (8.4-10.2); Carbon Dioxide 25 mmol/L (22-29); Chloride 103 mmol/L (96-108); Cholesterol 152 mg/dL (<200); Estimated Glomerular Filt Rate > 60; HDL Cholesterol 63 mg/dL (>40); Potassium 4.0 mmol/L (3.3-5.1); Sodium 137 mmol/L (135-145); Total Protein 7.2 g/dL (6.5-8.0); Triglycerides 46 mg/dL (<150)
[2025-09-07 11:29] LABS: Microalbum/Creatinine Ratio Ur 17.3 ug/mg cr (<30)
[2025-09-07 11:53] LABS: Folate 14.4 ng/mL (> or = 4.0); Vitamin B12 527 pg/mL (200-900)
[2025-09-07 11:56] LABS: Free T4 (Free Thyroxine) 1.00 ng/dL (0.71-1.85); Thyroid Stimulating Hormone 2.10 uIU/mL (0.32-4.0)
== END 2025-09-07 08:17 | disposition home or self-care (01) ==
LOC: HO.HMGCX 08:16
PROVIDERS: Absent Provider Internal Medicine; PCP Internal Medicine; Visit Provider Student in an Organized Health Care Education/Training Program
DX: E04.2 Nontoxic multinodular goiter (principal); E11.65 Type 2 diabetes mellitus with hyperglycemia; E78.00 Pure hypercholesterolemia, unspecified; R30.0 Dysuria
CPT/HCPCS: 36415; 76536; 80053; 80061; 81001; 82043; 82306; 82570; 82607; 82746; 83036; 84439; 84443; 85025; 87086

== ENCOUNTER → 2025-09-07 08:29 | Outpatient (BNV) | payer MEDICARE, OTHER, SELFPAY | PROVIDERS: Absent Provider Internal Medicine; PCP Internal Medicine; Visit Provider Radiology Diagnostic Radiology | DX: E04.2 Nontoxic multinodular goiter (principal) | CPT/HCPCS: 76536 ==

== ENCOUNTER 2025-09-14 11:05 | Outpatient (AMB) | payer MEDICARE, OTHER, SELFPAY ==
--- OUTSIDE RECORDS SUMMARY | 2012-03-31 23:00 | XMS_ITS | Encounter Summary ---
Author Organization [facility] Address [address] [place] [address] Phone Care Team Providers Care Professor Of Journalism Name Role Phone Unavailable Primary Care Provider Unavailabl e Encounter Details Date Type Department Care Team (Late st Contact Info) Description 04/01/2012 Hospital Encounter [facility],Outside Imaging [address] [place] [address] Unknown, Unknown, Social History Tobacco Use Types [...] is not the complete legal health record.[facility]
--- OUTSIDE RECORDS SUMMARY | 2013-08-27 | XMS_ITS | Encounter Summary ---
Author Organization [facility] Address [address] [place] [address] Phone Care Team Providers Care Commander Internal Affairs Name Role Phone Unavailable Primary Care Provider Unavailabl e Encounter Details Date Type Department Care Team (Late st Contact Info) Description 08/27/2013 Hospital Encounter [facility],Outside Imaging [address] [place], [place] [phone] Unknown, Unknown, Social History Tobacco Use Types [...] It is not the complete legal health record.[facility]
--- OUTSIDE RECORDS SUMMARY | 2025-09-08 03:30 | XMS_ITS ---
Author Organization [facility] Address [address] [place] [address] Care Team Providers Care Telephone Sex Worker Name Role Phone Gloria Villarreal Primary Care Provider Chelsie Sim [phone] Encounters Encounter Location Date Provider Diagnosis [facility] [address] [place] [address] 09/08/2025 Chelsie Li Plan Of Treatment Next Appt Details Provider Name:Chelsie Li , 12/19/2025 02:45:00 PM, [address] [place] [address], [phone], Progress Notes * Ana BARAJAS MDOB:[birth year] (70 yo F)Acc No.[id number]:09/08/2025 Progress Note Patient: Ana ORNELAS Provider: Gurjit Li DPM :1955 A ge:70 Y S ex:Female Date:09/08/2025 Address:[address] [place], [place] [id number] Pcp:Gloria Villarreal Subjective: * Chief Complaints: * * Medical History: Objective: * Vitals: Assessment: Plan: * Treatment: * Images: * The named appointment provid er may or may not be the originator of this progress note, and it is not deemed complete until electronically signed by the appointment provider. Sign off status: Pending * Provider: Gurjit Li DPM Date: 1 11/09/2024 Generated for Aquiles lomas/Lewis/Martin on: 11/15/2024 11:11 AM EST
--- OUTSIDE RECORDS SUMMARY | 2025-09-12 08:45 | XMS_ITS ---
Author Organization [facility] Address [address] [facility] [place] [address] Care Team Providers Care Build Technician Name Role Phone Gloria Villarreal Primary Care Provider Unavailabl e Black, Chelsie Unavailable [phone] Allergies Allergen (clinical drug ingredient) Drug/Non Drug Allergy documented on EMR Reaction Allergy Type Onset Date Status Information temporarily unavailable Imuran Unknown Drug Allergy Active Information temporarily unavailable Remicade rash Drug Allergy Active Information temporarily unavailable Dexamethasone blood pressure goes up Drug Allergy Active Information temporarily unavailable Etanercept hives,welt,itch ing Drug Allergy Active Information temporarily unavailable Nickel Unknown Allergy Active REASON FOR VISIT At Risk Footcare, Toe Irritation Medications Medication SIG (Take, Route, Frequency, Duration) Notes Start Date End Date Status Ammonium Lactate 12 % 1 application Externally to affected areas of dry skin to feet except for between the toes Twice a day; Duration: 30 days Active Extra Depth Orthopedic Shoes (1 Pair) with Customized Heat Molded Multidensity Innersoles (3 Pair) as directed Dx: IDDM/Polyneuropathy (E10.42), Hammertoe Foot Deformity (M20.41,M20.42), Preulcerative Skin Lesion(s) (L85.1) 02/21/2025 Active Cranberry Not-Taking Estradiol 0.1 MG/GM Vaginal; Duration: 90 Not-Taking Lantus Not-Taking Fish Oil Active HumaLOG Active Multivitamin Active Omeprazole PRN Active Extra Depth Orthopedic Shoes (1 Pair) with Customized Heat Molded Multidensity Innersoles (3 Pair) as directed Dx: IDDM/Polyneuropathy (E10.42), Hammertoe Foot Deformity (M20.41,M20.42), Preulcerative Skin Lesion(s) (L85.1) 12/01/2023 Active Vitamin C Active zzzCompression Stockings 20-30mm Hg . . .; Duration: . Active Atorvastatin Calcium 20 MG Orally Active Biotin Active Cimzia Active Calcium Active Calcium Not-Taking Vitamin D Not-Taking Tresiba Active Wellbutrin Active Allergy Not-Taking EpiPen 2-Cj Not-Demar ing Fosamax Not-Taking Colcrys Not-Taking predniSONE Not-Takin g buPROPion HCl 100 MG 1 tablet Orally Twi ce a day; Duration: 30 day(s) Not-Taking Ibuprofen Not-Taking Humira Not-Taking Alendronate Sodium 70 MG 1 tablet Orally ; Duration: 30 day(s) Not-Taking LORazepam 1 MG 1 tablet at bedtime as needed Orally Once a day PRN Not-Taking Cefdinir 300 MG as directed Orally Not-Taking Clindamycin HCl 300 MG 2 capsules Orally every 8 hrs; Duration: 10 day(s) 03/22/2021 Not-Taking predniSONE 20 MG 3 tablet Orally Once a day Not-Taking Remicade Not-Taking Extra Depth Orthopedic Shoes (1 Pair) [...] (M20.41,M20.42), Preulcerative Skin Lesion(s) (L85.1 02/04/2019 Not-Taking Social History Tobacco Use: Social History [...] Negative Vital Signs Height 5ft 2in in 09/12/2025 Weight 160 lbs 09/12/2025 BMI 29.26 kg/m2 09/12/2025 Blood pressure systolic 128 mm Hg 09/12/20 25 Blood pressure diastolic 65 mm Hg 025 Procedures Procedure Date Ordered Date Performed Result Body Sit e 47660-GMUXUHD NAIL, 6 OR MORE 09/12/2025 N/A 49060-BIGJ SKIN LESIONS, OVER 4 09/12/2025 N/A Encounters Encounter Location Date Provider Diagnosis [facility] [address] [place] [address] 09/12/2025 Chelsie Black Type 1 diabetes mellitus with diabetic polyneuropathy E10.42 ; Other hammer toe(s) (acquired), right foot M20.41 ; Tinea unguium B35.1 and Other hammer toe(s) (acquired), left foot M20.42 Assessments Encounter Date Diagnosis (ICD Code) Assessment Notes Treatment Notes Treatment Clinical Notes Section Notes 09/12/2025 Type 1 diabetes mellitus with diabetic polyneuropathy (ICD-10 - E10.42) 09/12/2025 Other hammer toe(s) (acquired), right foot (ICD-10 - M20.41) Response to treatment, Improvement 09/12/2025 Tinea unguium (ICD-10 - B35.1) 09/12/2025 Other hammer toe(s) (acquired), left foot (ICD-10 - M20.42) Response to treatment, Improvement Plan Of Treatment Pending Test Test Name Order Date [id number] NAIL, 6 OR MORE 09/12/2025 71930-YMSQ SKIN LESIONS, OVER 4 09/12/20 25 Next Appt Details Follow Up: prn, Reason: Provider Name:Chelsie Li , 12/19/2025 02:45:00 PM, [address] [place] [address], [id number], Procedure Notes * Category Sub-Category Detail Notes Debride Nail 6-10 Nail debridement Due to [...] use of a nail nipper and/or dremel-type meal grinder tender, to a more viable healthy nail plate [...] to maintain effectiveness in symptomatic relief - 49152 Keratoma Treatment Parring or Cutting o f Benign Hyperkeratotic Lesion(s) (-57) More than 4 Lesions - Due to the at risk nature of the patients medical condition as documented in the exam findings, performance of this keratoderma treatment is medically necessary as its management by an unskilled/untrained nonprofessional would put this patients foot and overall health at risk. Therefore, the benign hyperkeratotic lesions, (5_) in total, locations as stated and described in the exam (,SUB MTH (s),2,3,Right 5,Left, plantar Heel(s) , B/L ), were pared, and/or cut utilizing a sterile 15 blade, tissue nippers, and/or power dremel instrumentation by the physician of record - [id number] Progress Notes * LUISAna Guallpa OB:[birth year] (70 yo F)Acc No.[id number]:09/12/2025 Progress Note Patient: Ana ORNELAS Provider: Gurjit Li DPM :1955 A ge:70 Y S ex:Female Date:09/12/2025 Address:[address] [place] [address] Pcp:Gloria Villarreal Subjective: * Chief Complaints: * A t Risk FootcareToe Irritation * HPI: A t Risk footcare: Pt States Last PCP Visit: D ate: 0 05/31/2025 T oe pain: Treatments: R x shoes . * ROS: G eneral/Constitutional: Nausea d enies. V omiting d enies. H tomasa Thirst d enies. L oss appetite d enies. C hills d enies. F atigue d enies.?Fever d enies. N ight Sweats d enies. U nexplained weight loss d enies. U nexplained weight gain d enies. H EENTM: Dentures d enies. D izziness d enies. G lasses/contacts d enies. R etinopathy d enies. B lurred/double vision d enies. T MJ?denies. D ischarge/drainage d enies. I mplants d enies. S ore throat d enies. D ental implants d enies. H chad of hearing d enies. D ifficulty chewing/swallowing/speaking d enies. N ose bleeds d enies. S ore mouth d enies. ? R espiratory: On Oxygen d enies. P neumonia/pleurisy d enies.?Bronchitis d enies. E mphysema d enies. C oughing d enies. C ough blood?denies. S hortness of breath d enies. W heezing d enies. C ardiovascular: Pacemaker d enies. M COAL CHUTE WORKER d enies. W PW d enies. C HF d enies. H eart attack d enies. S eptal defect d enies. R apid beat d enies. C hest pain d enies. A trial Fib. d enies. M urmur/Palpitations d enies. G astrointestinal: Hemorrhoids d enies. S tomach/Abdominal pain d enies. D ark blood stool d enies. I rritable bowel d enies. C onstipation d enies. D iarrhea d enies. H ematology: Swelling d enies. C lots d enies. V aricose Veins d enies. B ruising d enies. B leeding problem d enies. G enitourinary: Blood urine d enies. F requent/Painfu/urination/bladder control d enies. K idney stones d enies. I nfection (UTI) d enies. N ephropathy d enies. s ex trans dis (STD) d enies. P rostate d enies. M usculoskeletal: Hammertoes a dmits. B unions d enies. B ack Pain d enies. M uscle Cramps/ Resting d enies. M uscle cramps / walking d enies.?Generalized aches and pains d enies. W eakness d enies. I nteg.: Fritz d enies. S cars d enies. C orns/calluses?, admits. I ngrown nails a dmits. P ainful nails , denies. O pen Sores?denies. R ashes d enies. N eurologic: Difficulty sleeping d enies. B rain disorder d enies. N umbness d enies. B alance trouble d enies. C onfusion d enies. F ainting/blackouts d enies. T ingling d enies. T remors d enies. * Medical History: * Surgical History: B oth legs Lasser surgery & 04/2014removed galbladder 11/05/2016spline removal broken leg required surgery 07/2019bladder cancer 1biopsy done on leg, infection, traveled from leg to ankle- mers right leg 05/29/24 * Hospitalization/Major Diagno stic Procedure: T [facility] bladder cancer treatments-Ended 11/29/2021 10/25/[facility] - Hospitalized for feet/Leg swelling-Left hospital because was on bed in hallway 22 hrs 11/2021[facility]- Was on Prednisone for swelling feet and legs- 2 nights 12/10/2021 * Family History: M other: , diagnosed with Family history of arthritis, Other malignant neoplasm of unspecified site. F ather: , diagnosed with Unspecified heart disease, Diabetic - NIDDM.? * Social History: T obacco Use: T obacco use other than smoking A re you an other tobacco user? N o Tobacco Control (Standard) T obacco use: C urrent smoker W hen did you start smoking? 0 10/25/1991 H ow often do you smoke cigarettes? E very day H ow many cigarettes a day do you smoke? 1 1-20 H ow soon after you wake up do you smoke your first cigarette? 3 1-60 minutes A re you interested in quitting? T hinking about quitting A dditional Findings: Tobacco user M oderate cigarette smoker (10-19 cigs/day) D rugs/Alcohol: D rugs H ave you used drugs other than those for medical reasons in the past 12 months? N o M iscellaneous: C affeine: yes, frequency:, more than 4 cups per day tea. Children: yes, 4. Exercise: yes, walking, up and down stairs, yard work, house work, volunteering [employer]. Marital status: . 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 D rug/Alcohol: A GREG-C (Standard) D id you have a drink containing alcohol in the past year? N o P oints 0 I nterpretation N egative * Medications: T akingTresiba Wellbutrin Calcium Vitamin C zzzCompression Stockings 20-30mm Hg 1 pair closed toe- knee high . . . Atorvastatin Calcium 20 MG Tablet Orally Biotin Cimzia Fish Oil HumaLOG Multivitamin Omeprazole , Notes to Pharmacist: PRNExtra Depth Orthopedic Shoes (1 Pair) with Customized Heat Molded Multidensity Innersoles (3 Pair) as directed Dx: IDDM/Polyneuropathy (E10.42), Hammertoe Foot Deformity (M20.41,M20.42), Preulcerative Skin Lesion(s) (L85.1) Ammonium Lactate 12 % Cream 1 application Externally to affected areas of dry skin to feet except for between the toes Twice a day Extra Depth Orthopedic Shoes (1 Pair) with Customized Heat Molded Multidensity Innersoles (3 Pair) as directed Dx: IDDM/Polyneuropathy (E10.42), Hammertoe Foot Deformity (M20.41,M20.42), Preulcerative Skin Lesion(s) (L85.1) Taking Tresiba Taking Wellbutrin Taking Calcium Taking Vitamin C Taking zzzCompression [...] Deformity (M20.41,M20.42), Preulcerative Skin Lesion(s) (L85.1) Taking Ammonium Lactate 12 % Cream 1 application Externally to affected areas of dry skin to feet except for between the toes Twice a day Taking Extra Depth Orthopedic Shoes (1 Pair) [...] reviewed and reconciled with the patient * Allergies: I muranRemicade: rashNickelEtanercept: hives,welt,itchingDexamethasone: blood pressure goes upyes[Allergies Verified] Objective: * Vitals: H t:5ft 2in, Wt:160, BMI:29.26, Shoe size:9, BP:128/65mm Hg, BS:120, Ht-cm: 157.48 cm, Wt-k.58 kg. * P ast Orders: L ab:HEMOGLOBIN A1C (GLYCOHEMOGLOBIN) (Order Date - 05/31/2025) (Collection Date & Time - 06/02/2025 08:02 AM) Value Reference Range HEMOGLOBIN A1C % (HH) 7.6 * Examination: O phthalmology Referral: DIABETES EYE EXAM P rocedure Performed: Claribel Leigh ate of Exam Performed 1 10/23/2023 D iabetic Retinopathy Screening: Claribel Abrams indings of Diabetic Eye Exam: n o retinopathy G eneral Examination: GENERAL APPEARANCE: R eveals a pleasant, alert, well nourished, well-developed, well hydrated individual, who demonstrates proper attention to hygiene/body habitus, and is in no acute distress, Pt serves as own historian for office visit today. ORIENTED: p erson, place, and time. Footwear Evaluation F ootwear Evaluation performed: Y es N eurological: SENSORY: Neurological exam demonstrates inability for patient to distinguish sharp/dull pin prick discrimination, reduced, light touch sensation, reduced, vibration sensation,reduced, proprioception identification, in a stocking fashion, B/L. Test with 5.07 Columbia-David monofilament performed at plantar aspects of 5 varied sites per foot shows sensation absent in at least 2 locations, B/L, Pt relates anesthesia, tingling burning right midfoot.? V ascular: DP PULSES (B): 2 /4, B/L. PT PULSES (B): 1 /4, B/L. CAPILLARY FILL TIME: i mmediate, all digits, B/L. TROPHIC CONDITION-TEXTURE/ELASTICITY/TURGOR/HAIR GROWTH (B):?normal, B/L. TEMPERTURE GRADIENT (C): n ormal, warm to cool, proximal to distal, B/L, B/L. PIGMENTATION: n ormal, B/L. EDEMA (C): a bsent, B/L. VARICOSITIES: p resent, moderate, nonpainful, B/L. ? D ermatologic: SKIN FINDINGS: S kin exam reveals keratotic lesion(s) located at ,SUB MTH (s),2,3,Right 5,Left, plantar Heel(s) , B/L ,. N ails: NAILS are: e longated,overgrown,dystrophic,greater than 3mm thick,discolored and friable with crumbly malodorous subungual debris, T 2, T3,T5, T4, T6, T8, T9, . O rthopedic: DIGITAL DEFORMITIES: D igital contracture, PIPJ, 2-5 B/L, incompl-reducible with WB, or to push-up test, no over, nor underlapping. FOOTWEAR EVALUATION: g ood condition, exhibit proper fit and accommodation for pedal deformities. OT were inspected and noted to be worn, but in good condition giving proper support at the present time. Assessment: * Assessment: 1. O ther hammer toe(s) (acquired), right foot - M20.41 (Primary) S pecify :Chronic problem, Stable (1=3,2=4) N otes :Response to treatment, Improvement 2 . T ype 1 diabetes mellitus with diabetic polyneuropathy - E10.42 3 . T inea unguium - B35.1 4 . O ther hammer toe(s) (acquired), left foot - M20.42 S pecify :Chronic problem, Stable (1=3,2=4) N otes :Response to treatment, Improvement Plan: * Treatment: 2. T inea unguium P rocedure: [id number] NAIL, 6 OR MORE * Procedures: D ebride Nail 6-10: Nail debridement D ue to the clinical pathology outlined in the [...] use of a nail nipper and/or dremel-type meal grinder tender, to a more viable healthy nail plate [...] to maintain effectiveness in symptomatic relief - 20533. K eratoma Treatment: Parring or Cutting of Benign Hyperkeratotic Lesion(s) ( -57) More than 4 Lesions - Due to the at risk nature of the patients medical condition as documented in the exam findings, performance of this keratoderma treatment is medically necessary as its management by an unskilled/untrained nonprofessional would put this patients foot and overall health at risk. Therefore, the benign hyperkeratotic lesions, (5_) in total, locations as stated and described in the exam (,SUB MTH (s),2,3,Right 5 ,Left, p lantar H eel(s) , B /L ) , were pared, and/or cut utilizing a sterile 15 blade, tissue nippers, and/or power dremel instrumentation by the physician of record - [id number]. * Procedure Codes: 1 1721 DEBRIDE NAIL, 6 OR MORE, Modifiers: XS M1372 Mst rec gsa >=7 and<[id number] TRIM SKIN LESIONS, OVER 4, Modifiers: XS * Preventive Medicine: Counseling: T obacco use: Patient counseled on the dangers of smoking and urged to quit: 1 11/13/2024 D iscussion: - 13: Office or other outpatient visit for the [...] have encouraged the patient to call the office. S hoe Gear Counseling: A thorough inspection of the patients Rxed shoe gear and inserts was performed and findings communicated. We reviewed the many important medical advantages for adhering to regularly wearing these shoe and insert accommodative devices daily as well as reviewed the fact that a failure in accepting these recommendations may be deleterious, unable to prevent, and result in many pedal complications such as skin irritation, skin ulceration, infection, and even loss of toe/foot/leg/or even their life. Time was also spent reviewing the proper foot care techniques including daily skin moisturization, daily foot inspection for any interruption in skin integrity, open lesions, or sign of infection such as redness/malodor/drainage/swelling as well as daily shoe inspection for the presence of trapped foreign bodies in the shoe as well as insert wear. Patient questions re: shoes, inserts, and self foot inspections were answered to their satisfaction as the patient verbally confirmed a full understanding of the above information.? Screening/Special Tests: F all Risk Screening: N o falls in the past year F ALLS: Screening for Future Fall Risk Have you had two or more falls in the past year? N o Have you had any falls with injury in the past year? N o * Follow Up: p rn * Images: * Sign off status: Completed true * Provider: Gurjit Li DPM Date: 11/13/2024 Generated for Aquiles lomas/Lewis/Martin on: 11/15/2024 11:11 AM EST History and Physical Notes * HPI (History of Present Illness) Category Sub-Category Detail Notes Category Not es Toe pain Treatments: Rx shoes At Risk footcare Pt States Last PCP Visit: Date:: 05/31/20 25 Examination Category Sub-Category Detail Notes Category Not es Neurological SENSORY: Neurological exa m demonstrates inability for patient to distinguish sharp/dull pin prick discrimination, reduced, light touch sensation, reduced, vibration sensation,reduced, proprioception identification, in a stocking fashion, B/L. Test with 5.07 Columbia-David monofilament performed at plantar aspects of 5 varied sites per foot shows sensation absent in at least 2 locations, B/L, Pt relates anesthesia, tingling burning right midfoot Dermatologic SKIN FINDINGS: Skin exam reveal s keratotic lesion(s) located at ,SUB MTH (s),2,3,Right 5,Left, plantar Heel(s) , B/L , Orthopedic FOOTWEAR EVALUATION: good condit ion, exhibit proper fit and accommodation for pedal deformities. OT were inspected and noted to be worn, but in good condition giving proper support at the present time DIGITAL DEFORMITIES: Digital contracture , PIPJ, 2-5 B/L, incompl-reducible with WB, or to push-up test, no over, nor underlapping General Examination GENERAL APPEARANCE: Reveals a pleasant, alert, well nourished, well-developed, well hydrated individual, who demonstrates proper attention to hygiene/body habitus, and is in no acute distress, Pt serves as own historian for office visit today ORIENTED: person, place, and t mitchell Footwear Evaluation Footwear Evaluation performe d:: Yes Ophthalmology Referral DIABETES EYE EXAM Procedure Perform ed:: Yes Date of Exam Performed: 08/22/2024 Diabetic Retinopathy Screening:: Yes Findings of Diabetic Eye Exam:: no retin opathy Vascular DP PULSES (B): 2/4, B/L PT PULSES (B): 1/4, B/L CAPILLARY FILL TIME: immediate, all digi ts, B/L TEMPERTURE GRADIENT (C): normal, warm to cool, proximal to distal, B/L, B/L TROPHIC CONDITION-TEXTURE/ELASTICITY/TURGOR/HAIR GROWTH (B): normal, B/L EDEMA (C): absent, B/L VARICOSITIES: present, moderate, n onpainful, B/L PIGMENTATION: normal, B/L Nails NAILS are: elongated,overgr own,dystrophic,greater than 3mm thick,discolored and friable with crumbly malodorous subungual debris, T2, T3,T5, T4, T6, T8, T9,
--- OUTSIDE RECORDS SUMMARY | 2025-09-14 11:11 | XMS_ITS | Patient Health Record ---
Author Organization [facility] Lor Gramajoley Address [address] [place] [address] Care Team Providers Care Staff Internist Office Based Only Name Role Phone PhilGloria Primary Care Provider Unavailabl e Black, Chelsie Unavailable [phone] Allergies Allergen (clinical drug ingredient) Drug/Non Drug [...] Twice a day; Duration: 30 days Active Allergy Not-Taking Extra Depth Orthopedic Shoes (1 Pair) with Customized Heat Molded Multidensity Innersoles (3 Pair) as directed Dx: IDDM/Polyneuropathy (E10.42), Hammertoe Foot Deformity (M20.41,M20.42), Preulcerative Skin Lesion(s) (L85.1) 02/21/2025 Active EpiPen 2-Cj Not-Demar ing Cranberry Not-Taking Fosamax Not-Taking Estradiol 0.1 MG/GM Vaginal; Duration: 90 Not-Taking Lantus Not-Taking buPROPion HCl 100 MG 1 tablet Orally Twi ce a day; Duration: 30 day(s) Not-Taking Ibuprofen Not-Taking Fish Oil Active Humira Not-Taking HumaLOG Active Alendronate Sodium 70 MG 1 tablet Orally ; Duration: 30 day(s) Not-Taking Multivitamin Active LORazepam 1 MG 1 tablet at bedtime as needed Orally Once a day PRN Not-Taking Omeprazole PRN Active Colcrys Not-Taking Extra Depth Orthopedic Shoes (1 Pair) with Customized Heat Molded Multidensity Innersoles (3 Pair) as directed Dx: IDDM/Polyneuropathy (E10.42), Hammertoe Foot Deformity (M20.41,M20.42), Preulcerative Skin Lesion(s) (L85.1) 12/01/2023 Active predniSONE Not-Takin g Calcium Active Cefdinir 300 MG as directed Orally Not-Taking Vitamin C Active Clindamycin HCl 300 MG 2 capsules Orally every 8 hrs; Duration: 10 day(s) 03/22/2021 Not-Taking zzzCompression Stockings 20-30mm Hg . . .; Duration: . Active predniSONE 20 MG 3 tablet Orally Once a day Not-Taking Atorvastatin Calcium 20 MG Orally Active Remicade Not-Taking Biotin Active Cimzia Active Calcium Not-Taking Vitamin D Not-Taking Extra Depth Orthopedic [...] (M20.41,M20.42), Preulcerative Skin Lesion(s) (L85.1 02/04/2019 Not-Taking Wellbutrin Active Extra Depth Orthopedic Shoes (1 Pair) with Customized Heat Molded Multidensity Innersoles (3 Pair) as directed Dx: NIDDM/Polyneuropathy (E11.42), Hammertoe Foot Deformity (M20.41,M20.42), Preulcerative Skin Lesion(s) (L85.1 05/15/2020 Not-Taking Immunizations Vaccine Route Administration Date Status Comme nts Influenza Unknown 10/23/2018 Administered Influenza Unknown 05/24/2019 Administered Influenza Unknown 04/24/2020 Administered Influenza Unknown 05/23/2022 Administered Influenza Unknown 06/23/2023 Administered Influenza Unknown 06/22/2024 Administered Influenza Unknown 06/24/2025 Administered COVID-19 Moderna Vaccine Unknown 11/23/2020 Administere [...] Problem Acquired hammer toe of right foot (878254009953695 5) Other hammer toe(s) (acquired), right foot (M20.41) Active confirmed Response to treatment, Improvement Problem Acquired hammer toe of left foot (691160284542769 3) Other hammer toe(s) (acquired), left foot (M20.42) Active confirmed Response to treatment, Improvement Problem Polyneuropathy due to diabetes mellitus type I (642631647) Type 1 diabetes mellitus with diabetic polyneuropathy (E10.42) Active confirmed Vital Signs Blood pressure diastolic 65 mm Hg 09/12/2025 Height 5ft 2in in 09/12/2025 Blood pressure systolic 128 mm Hg 09/12/2025 Weight 160 lbs 09/12/2025 BMI 29.26 kg/m2 09/12/2025 Procedures Procedure Date Ordered Date Performed Result Body Sit e 79111-OHQVVSX NAIL, 6 OR MORE 11/15/2024 N/A 67536-Bwqocrqy Plate 11/15/2024 N/A 83840-VRPE SKIN LESIONS, 2 TO 4 11/15/2024 N/A 78830-VCWBPRX NAIL, 6 OR MORE 02/21/2025 N/A 52110-VRSI SKIN LESIONS, 2 TO 4 02/21/2025 N/A 33913-ZNRMJPY NAIL, 6 OR MORE 06/02/2025 N/A 53103-Eiubfdxf Plate 06/02/2025 N/A 85128-WITO SKIN LESIONS, 2 TO 4 06/02/2025 N/A 48557-NKODTVT NAIL, 6 OR MORE 09/12/2025 N/A 10937-GTUY SKIN LESIONS, OVER 4 09/12/2025 N/A Encounters Encounter Location Date Provider Diagnosis [address] [address] 11/15/2024 Chelsie Black Type 1 diabetes mellitus with diabetic polyneuropathy E10.42 ; Tinea unguium B35.1 ; Ingrown nail L60.0 and Xerosis of skin L85.[address] [address] 02/21/2025 Chelsie Black Type 1 diabetes mellitus with diabetic polyneuropathy E10.42 ; Other hammer toe(s) (acquired), right foot M20.41 ; Tinea unguium B35.1 ; Xerosis of skin L85.3 and Other hammer toe(s) (acquired), left foot M20.[address] [address] 06/02/2025 Chelsie Black Type 1 diabetes mellitus with diabetic polyneuropathy E10.42 ; Tinea unguium B35.1 and Ingrown nail L60.[address] [address] 09/12/2025 Chelsie Black Type 1 diabetes mellitus with diabetic polyneuropathy E10.42 ; Other hammer toe(s) (acquired), right foot M20.41 ; Tinea unguium B35.1 and Other hammer toe(s) (acquired), left foot M20.42 [facility] [address] [address] 04/19/2025 Chelsie Guillermo [facility] [address] [address] 08/09/2025 Chelsie Li Assessments Encounter Date Diagnosis [...] - M20.41) Response to treatment, Improvement 09/12/2025 Type 1 diabetes mellitus with diabetic polyneuropathy (ICD-10 - E10.42) 11/15/2024 Tinea unguium (ICD-10 - B35.1) 09/12/2025 Tinea unguium (ICD-10 - B35.1) 06/02/2025 Ingrown nail (ICD-10 - L60.0) 02/21/2025 Tinea unguium (ICD-10 - B35.1) 02/21/2025 Xerosis of skin (ICD-10 - L85.3) 11/15/2024 Ingrown nail (ICD-10 - L60.0) 09/12/2025 Other hammer toe(s) (acquired), left foot (ICD-10 - M20.42) Response to treatment, Improvement 11/15/2024 Xerosis of skin (ICD-10 - L85.3) 02/21/2025 Other hammer toe(s) (acquired), left foot (ICD-10 - M20.42) 06/02/2025 Other Plan Of Treatment Pending Test Test Name Order Date 66543-EVZGCUJ NAIL, 6 OR MORE 02/04/2019 86703-MELXICN NAIL, 6 OR MORE 05/06/2019 24758-EAZKMPS NAIL, 6 OR MORE 08/09/2019 98503-DAEMAIR NAIL, 6 OR MORE 11/04/2019 50359-ADEWJMN NAIL, 6 OR MORE 02/10/2020 92130-PGIVRUU NAIL, 6 OR MORE 05/15/2020 67274-SDFRFPK NAIL, 6 OR MORE 08/21/2020 00577-XUFARIR NAIL, 6 OR MORE 11/20/2020 15834-GGGPKJE NAIL, 6 OR MORE 03/22/2021 42412-HYDJSXZ NAIL, 6 OR MORE 07/05/2021 08233-HIKYVRX NAIL, 6 OR MORE 09/20/2021 88949-ZIUJXYM NAIL, 6 OR MORE 12/17/2021 97175-VQGNDMZ NAIL, 6 OR MORE 03/04/2022 34390-PUMRNSU NAIL, 6 OR MORE 05/16/2022 02948-LVRBKKR NAIL, 6 OR MORE 07/22/2022 50850-WEJWDBU NAIL, 6 OR MORE 10/31/2022 42417-XGJQCJL NAIL, 6 OR MORE 01/09/2023 70067-MDJFNYI NAIL, 6 OR MORE 03/20/2023 26534-UNQAXOL NAIL, 6 OR MORE 06/09/2023 17347-KHAYLHG NAIL, 6 OR MORE 08/25/2023 96775-PDSIGFO NAIL, 6 OR MORE 12/01/2023 17360-CSYITEC NAIL, 6 OR MORE 02/04/2024 77951-JDXJRSS NAIL, 6 OR MORE 05/07/2024 07295-MGEKRDM NAIL, 6 OR MORE 08/12/2024 26821-TVCLRQX NAIL, 6 OR MORE 11/15/2024 79604-CTLDPKT NAIL, 6 OR MORE 02/21/2025 97060-JDJIHAY NAIL, 6 OR MORE 06/02/2025 87258-JCFMWUN NAIL, 6 OR MORE 09/12/2025 44295-HVVCXIN NAIL, 1-5 02/20/2015 78753-Jlygxjea Plate 08/09/2019 17441-Nxrqnita Plate 12/17/2021 85779-Ogibvxdm Plate 05/15/2020 09914-Toobjchp Plate 11/20/2020 30957-Fhnazubm Plate 12/01/2023 17408-Pxgsqwrk Plate 10/31/2022 69418-Xhpfodxj Plate 07/05/2021 88660-Mcyjohpw Plate 11/15/2024 37195-Rrxadvfh Plate 06/02/2025 47315-Zjubnmdg Plate Each Additional 05/2023 16597-Oyvvdxwh Plate Each Additional 07/2024 13320-Omstmccy Plate Each Additional 53559-Ohtngpel Plate Each Additional 84688- Debride <25 sq cm 06/09/2023 78192 I&D ABSCESS- SIMPLE,SINGLE 024 68151-YJEB SKIN LESIONS, OVER 4 06/09/20 23 41988-ENFK SKIN LESIONS, OVER 4 08/25/20 76289-UNDA SKIN LESIONS, OVER 4 01/10/20 23 92978-ZUCQ SKIN LESIONS, OVER 4 03/20/20 23 86796-JNHJ SKIN LESIONS, OVER 4 09/12/20 25 55561-JCFC SKIN LESIONS, 2 TO 4 06/02/20 40695-YRPQ SKIN LESIONS, 2 TO 4 10/31/19 22743-RWAQ SKIN LESIONS, 2 TO 4 07/22/20 18512-LGXP SKIN LESIONS, 2 TO 4 05/16/20 51780-MOXC SKIN LESIONS, 2 TO 4 02/04/20 24 66176-IIZT SKIN LESIONS, 2 TO 4 12/01/19 24 36010-UWQW SKIN LESIONS, 2 TO 4 02/22/20 29427-BLAM SKIN LESIONS, 2 TO 4 11/15/19 13933-VFGM SKIN LESIONS, 2 TO 4 08/12/20 77681-WXNS SKIN LESIONS, 2 TO 4 05/07/20 42492-XAUZ SKIN LESIONS, 2 TO 4 08/09/20 92583-BRIR SKIN LESIONS, 2 TO 4 02/05/20 76557-TRMT SKIN LESIONS, 2 TO 4 05/06/20 72487-QSRF SKIN LESIONS, 2 TO 4 08/21/20 87053-WZWO SKIN LESIONS, 2 TO 4 08/24/20 20 00842-GOWY SKIN LESIONS, 2 TO 4 02/10/20 20 70364-JBMK SKIN LESIONS, 2 TO 4 11/04/19 20 01061-QKRO SKIN LESIONS, 2 TO 4 03/04/20 22 48237-REOK SKIN LESIONS, 2 TO 4 12/18/19 22 37830-ZBAT SKIN LESIONS, 2 TO 4 09/20/20 21 67282-DQHW SKIN LESIONS, 2 TO 4 11/21/19 21 20747-VUED SKIN LESIONS, 2 TO 4 07/05/20 21 83822-LSNB SKIN LESIONS, 2 TO 4 03/22/20 91634- Removal of Foreign Body, Subcut 0 02/04/2024 Next Appt Details Provider Name:Chelsie iL , 12/19/2025 02:45:00 PM, [address] [place], [address], Insurance Providers Payer Name Payer Address Payer Phone Subscriber Number Group Number Insured Name Patient Relationship to Insured Coverage Start Date Coverage End Date Medicare National [employer]t [employer] [address] [place] [address] [id number] Jean-Claude alexis Ana Self - patient is the insured [place] [address] [place] [address] [phone] [id number] Jean-Claude alexis Ana Self - patient is [...] infectio n, traveled from leg to ankle- [facility] right leg 05/29/24 Hospitalization History Reason Date(Month/Year) [facility]- Was on Pre dnisone for swelling feet and legs- 2 nights 12/10/2021 [facility] - Hospitalized f or feet/Leg swelling-Left hospital because was on bed in hallway 22 hrs 11/2021 [facility] bladder cancer treatments-Ended 11/2910/25/2021
--- OUTSIDE RECORDS SUMMARY | 2025-09-14 11:11 | XMS_ITS | Encounter Summary ---
Author Organization [facility] Address [address] [place] [address] Care Team Providers Care Robotics Systems Engineer Name Role Phone Glroia Villarreal Unavailable Lewis Wilkins Jr. Unavailable [phone] Alhaji Lauren MD Unavailable [phone] Encounter Details Date Type Department Care Team (Late st Contact Info) Description 08/03/2025 Telephone [facility] Medical Oncology [facility] Center [address] [facility], 9th [place] [address] Alhaji Lauren MD [address] [address] Social History Tobacco Use Types Packs/Day Years Used Date Smoking Tobacco: Some Days Cigarettes Passive Smoke Exposure: Never Smokeless Tobacco: Never Comments Unknown Sex and Gender Information Value Date Recorded Sex Assigned at Not on file Legal Sex Female 1:26 PM EST Gender Identity Not on file Sexual Orientation Not on file documented as of this encounter Miscellaneous Notes * Telephone Encounter - Vinny Escalante - 08/03/2025 11:58 AM EST Pt wants to CANCEL Tele-health appt for 08/08. Please call toRE-SCHEDULE a lab appt and In-Person MD appt - before 2pm today or later this afternoon. documented in this encounter Plan of Treatment Upcoming Encounters Date Type Department Care Team (Late st Contact Info) Description 01/25/2026 9:15 AM EDT Office Visit [facility] Urology (Surgical Specialties) [address] [address] Dominga Singleton MD [address] [place] [address] In Person with Physician 01/30/2026 12:30 PM EDT Appointment [facility] PET Scan [address] [address] Alhaji Lauren MD [address] [place] [address] In Person with Resource 01/30/2026 1:45 PM EDT Appointment [facility] PET Scan [address] [address] Alhaji Lauren MD [address] [place] [address] In Person with Resource 02/07/2026 9:45 AM EDT Lab [facility] Medical Oncology [address] [address] Alhaji Lauren MD [address] [place] [address] In Person with Resource 02/07/2026 10:30 AM EDT Office Visit [facility] Medical Oncology [address] [address] Alhaji Lauren MD [address] [place] [address] In Person with Physician documented as of this encounter Visit Diagnoses Not on filedocumented in this encounter Care Teams Robotics Systems Engineer Relationship Specialty Start Date End Date Gloria Villarreal [address] [place] [address] [address] PCP - Insurance Assigned PCP 01/14/24 Lewis Wilkins Jr. [facility] [place] [address] Rheumatology 02/21/24 Alhaji Lauren MD [address] [address] Consulting Provider Medical Oncology 07/26/24 documented as of this encounter
--- OUTSIDE RECORDS SUMMARY | 2025-09-14 11:11 | XMS_ITS | Encounter Summary ---
Author Organization [facility] Address [address] [place] [address] Care Team Providers Care Scrap Cutter Name Role Phone Gloria Villarreal Unavailable Lewis Wilkins Jr. Unavailable [phone] Alhaji Lauren MD Unavailable [phone] Reason for Visit * Reason Onset Date Comments Appointment 08/13/2024 Encounter Details Date Type Department Care Team (Late st Contact Info) Description 08/13/2024 Telephone [facility] Medical Oncology [facility] [address] [facility], 9th [place] [address] Alhaji Lauren MD [address] [place] [address] Appointment Social History Tobacco Use Types Packs/Day Years Used Date Smoking Tobacco: Never Assessed Comments Unknown Sex and Gender Information Value Date Recorded Sex Assigned at Not on file Legal Sex Female 1:26 PM EST Gender Identity Not on file Sexual Orientation Not on file documented as of this encounter Miscellaneous Notes * Telephone Encounter - Renetta Da Silva - 08/13/2024 1:00 PM EST Pt returning call * Telephone Encounter - Elen Cannon - 08/13/2024 10:12 AM EST 2nd call: Pt has been trying to book follow up appt with documented in this encounter Plan of Treatment Upcoming Encounters Date Type Department Care Team (Late st Contact Info) Description 01/25/2026 9:15 AM EDT Office Visit [facility] Urology (Surgical Specialties) [address] [place] [address] Dominga Singleton MD [address] [place] [address] In Person with Physician 01/30/2026 12:30 PM EDT Appointment [facility] PET Scan [address] [address] Alhaji Lauren MD [address] [place] [address] In Person with Resource 01/30/2026 1:45 PM EDT Appointment [facility] PET Scan [address] [address] Alhaji Lauren MD [address] [place] [address] In Person with Resource 02/07/2026 9:45 AM EDT Lab [facility] Medical Oncology [address], [place] [address] Alhaji Lauren MD [address] [place] [address] In Person with Resource 02/07/2026 10:30 AM EDT Office Visit [facility] Medical Oncology [address] [address] Alhaji Lauren MD [address] [place] [address] In Person with Physician documented as of this encounter Visit Diagnoses Not on filedocumented in this encounter Care Teams Scrap Cutter Relationship Specialty Start Date End Date Po, Lorenver [address] [facility] [address] [address] PCP - Insurance Assigned PCP 01/14/24 Lewis Wilkins Jr. [address] [place] [address] Rheumatology 02/21/24 Alhaji Lauren MD [address] [place] [address] [address] [place] [address] Consulting Provider Medical Oncology 07/26/24 documented as of this encounter
--- OUTSIDE RECORDS SUMMARY | 2025-09-14 11:11 | XMS_ITS | Encounter Summary ---
Author Organization [facility] Address [address] [facility] [address] [place] [address] Phone Care Team Providers Care Apparel Trimmings Sales Representative Name Role Phone Gloria Villarreal MD Primary Care Provider [phone] Encounter Details Date Type Department Care Team (Latest Contact Info) Description 01/02/2023 Transcribe Orders Virtual Department [address] [place] [address] Julee Castrejon CNP [address] [place] [address] [email or web address] Abnormal findings on [...] Primary documented in this encounter Care Teams Apparel Trimmings Sales Representative Relationship Specialty Start Date End Date Gloria Villarreal MD [address] [place] [address] PCP - General Internal Medicine 04/15/22 documented as of this encounter Additional Source Comments The information contained in this document represents components of the legal health record. It is not the complete legal health record.[facility]
--- OUTSIDE RECORDS SUMMARY | 2025-09-14 11:11 | XMS_ITS | Clinical Summary ---
Author Organization [facility] Address [address] [place] [address] Phone Care Team Providers Care Inspector Of Weights And Measures Name Role Phone Gloria Villarreal MD Primary Care Provider [phone] Allergies Active Allergy Reactions Criticality Noted Date [...] this topic Medical Devices Implanted Type Area Treasury Analyst Device Identifier Shelf Expiration Date Model / [...] 68 Admit Type: Outpatient Gender: Female Room: [place] [address] Referring MD: Gloria Villarreal MD Exam Type: Colonoscopy Indications: Colon cancer screening in patient at [facility]: Colorectal cancer in brother, Last colonoscopy [...] monitored continuously. The Olympus adult variable colonoscope [id number] #3 was introduced through the anus and [...] or abscess without bleeding CPT copyright 2020 [employer]. All rights reserved. The codes documented in this report are preliminary and upon computer language coder reviewmay be revised to meet current compliance requirements. Procedure Date: 07/08/2022 8:59:[address] [place] [address] Gloria Villarreal MD GI PROCEDURE ORDERABLES Final Result * (ABNORMAL) Comprehensive metabolic panel (04/10/2022 10:16 AM EDT) SODIUM 139 133 - 146 mmol/L [facility] POTASSIUM 4.1 3.3 - 5.1 mmol/L [facility] CHLORIDE 102 96 - 108 mmol/L [facility] CO2 27 21 - 35 mmol/L [facility] BUN 11 6 - 19 mg/dL [facility] CREATININE 0.60 0.5 - 1.5 mg/dL [facility] GLUCOSE 161(H) 70 - 99 mg/dL [facility] ALBUMIN 4.6 3.9 - 4.8 g/dL [facility] TOTAL PROTEIN 7.2 6.5 - 8.0 g/dL [facility] CALCIUM 9.6 8.4 - 10.3 mg/dL [facility] ALKALINE PHOSPHATASE 87 39 - 117 U/L [facility] TOTAL BILIRUBIN 0.2 0.0 - 1.2 mg/dL [facility] AST 21 0 - 37 U/L [facility] ALT 20 0 - 40 U/L [facility] GLOBULIN 2.6 1 - 4.8 g/dL [facility] EGFR 98 >59 mL/min/1.7 3m2 [facility] Comment:Estimated glomerular filtration rate calculated using the CKD-EPI refit equation. ANION GAP 14 10 - 20 mmol/L [facility] Blood 04/10/2022 10:1 6 AM EDT 04/10/2022 10:21 AM EDT Julee Castrejon CNP LAB BLOOD BKR ORDERABLES F inal Result [facility] [address] [place] [address] from Last 3 Months or Most Recently Relevant to Health Maintenance Insurance MEDICARE PART A & B [facility] MEDIC[facility] ENHANCE SUPPLEMENT MEDICARE PART A & B [facility] MEDICARE ENHANCE SUPPLEMENT MEDICARE PART A & B [facility] MEDICARE ENHANCE SUPPLEMENT MEDICARE PART A & B Member Subscriber Plan / Payer ( fective 2019-) Name:Ana Barajas Member ID:[id number] Relation to Subscriber:Self Name:Ana Barajas Subscriber ID:[id number] Payer ID:[id number] Group ID:Not on file Type:Medicare Address: [employer] [address] [facility] MEDICARE ENHANCE SUPPLEMENT MEDICARE PART A & B Member Subscriber Plan / Payer ( fective 2019-Present) Name:Ana Barajas Member ID:[id number] Relation to Subscriber:Self Name:Ana Barajas Subscriber ID:[id number] Payer ID:[id number] Group ID:Not on file Type:Medicare Address: [employer] [address] [place] [address] [place] [address] MEDICARE ENHANCE SUPPLEMENT MEDICARE PART A & B [facility] MEDICARE ENHANCE SUPPLEMENT MEDICARE PART A & B [facility] MEDICARE ENHANCE SUPPLEMENT MEDICARE PART A & B [facility] MEDICARE ENHANCE SUPPLEMENT MEDICARE PART A & B [facility] MEDIC[employer] ENHANCE SUPPLEMENT Care Teams Inspector Of Weights And Measures Relationship Specialty Start Date End Date Gloria Villarreal MD [address] [place] [address] [place] [address] PCP - General Internal Medicine 04/15/22 Additional Source Comments The information contained in this document represents components of the legal health record. It is not the complete legal health record.[facility]
--- OUTSIDE RECORDS SUMMARY | 2025-09-14 11:11 | XMS_ITS | Encounter Summary ---
Author Organization [facility] Address [address] [place] [address] Care Team Providers Care Heel Sewer Name Role Phone Gloria Villarreal Unavailable Lewis Wilkins Jr. Unavailable [phone] Alhaji Lauren MD Unavailable [phone] Reason for Visit * Reason Onset Date Comments call bck 08/05/2025 Encounter Details Date Type Department Care Team (Late st Contact Info) Description 08/05/2025 Telephone [facility] Medical Oncology [facility] Center [address] [facility], 9th [place] [address] Alhaji Lauren MD [address] [place] [address] call bck Social History Tobacco Use Types Packs/Day Years Used Date Smoking Tobacco: Some Days Cigarettes Passive Smoke Exposure: Never Smokeless Tobacco: Never Comments Unknown Sex and Gender Information Value Date Recorded Sex Assigned at Not on file Legal Sex Female 1:26 PM EST Gender Identity Not on file Sexual Orientation Not on file documented as of this encounter Miscellaneous Notes * Telephone Encounter - Janay Carroll - 08/05/2025 9:16 AM EST Pt is returning missed call from Pema [phone] documented in this encounter Plan of Treatment Upcoming Encounters Date Type Department Care Team (Late st Contact Info) Description 01/25/2026 9:15 AM EDT Office Visit [facility] Urology (Surgical Specialties) [address] [address] Dominga Singleton MD [address] [place] [address] In Person with Physician 01/30/2026 12:30 PM EDT Appointment [facility] PET Scan [address] [address] Alhaji Lauren MD [address] [place] [address] In Person with Resource 01/30/2026 1:45 PM EDT Appointment [facility] PET Scan [address] [address] Alhaji Lauren MD [address] [place] [address] In Person with Resource 02/07/2026 9:45 AM EDT Lab [facility] Medical Oncology [address] [address] Alhaji Lauren MD [address] [place] [address] In Person with Resource 02/07/2026 10:30 AM EDT Office Visit [facility] Medical Oncology [address] [address] Alhaji Lauren MD [address] [place] [address] In Person with Physician documented as of this encounter Visit Diagnoses Not on filedocumented in this encounter Care Teams Heel Sewer Relationship Specialty Start Date End Date Gloria Villarreal [address] [place] [address] PCP - Insurance Assigned PCP 01/14/24 Lewis Wilkins Jr. [address] [place] [address] Rheumatology 02/21/24 Alhaji Lauren MD [address] [address] Consulting Provider Medical Oncology 07/26/24 documented as of this encounter
--- OUTSIDE RECORDS SUMMARY | 2025-09-14 11:11 | XMS_ITS | Clinical Summary ---
Author Organization [facility] Address [address] [place] [address] Care Team Providers Care Prison Guard Supervisor Name Role Phone Destin Holt MD Primary [...] 1955 Fall Risk Screening 2019 COVID-19 Vaccine (2024-26 season) 2025 RSV Immunization ( o r 60+ Years) (1 - 1-dose 75+ series) 2029 Care Teams Prison Guard Supervisor Relationship Specialty Start Date End Date Destin Holt MD [address] [facility] [place] [address] PCP - General 06/05/10
--- OUTSIDE RECORDS SUMMARY | 2025-09-14 11:11 | XMS_ITS | Encounter Summary ---
Author Organization Nhung Cifuentes [facility] Address [address] [place] [address] Care Team Providers Care Recycling Crew Supervisor Name Role Phone Gloria Villarreal Unavailable Lewis Wilkins Jr. Unavailable [phone] Alhaji Lauren MD Unavailable [phone] Encounter Details Date Type Department Care Team (Late st Contact Info) Description 07/23/2024 Telephone [facility] Medical Oncology [address] [place] [address] Lewis Wilkins Jr. [facility] [place] [address] Social History Tobacco Use Types Packs/Day Years Used Date Smoking Tobacco: Never Assessed Comments Unknown Sex and Gender Information Value Date Recorded Sex Assigned at Not on file Legal Sex Female 1:26 PM EST Gender Identity Not on file Sexual Orientation Not on file documented as of this encounter Plan of Treatment Upcoming Encounters Date Type Department Care Team (Late Contact Info) Description 01/25/2026 9:15 AM EDT Office Visit [facility] Urology (Surgical Specialties) [address] [address] Dominga Singleton MD [address] [place] [address] In Person with Physician 01/30/2026 12:30 PM EDT Appointment [facility] PET Scan [address] [address] Alhaji Lauren MD [address] Treyjodie PEDRAZA [address] [place] [address] In Person with Resource 01/30/2026 1:45 PM EDT Appointment [facility] PET Scan [address] [address] Alhaji Lauren MD [facility] Sarah Powers [address] [address] In Person with Resource 02/07/2026 9:45 AM EDT Lab [facility] Medical Oncology [address] [address] Alhaji Lauren MD [facility] Juliazac Treyjodie [address] [address] In Person with Resource 02/07/2026 10:30 AM EDT Office Visit [facility] Oncology [address] [address] Alhaji Lauren MD [address] [place] [address] [address] In Person with Physician documented as of this encounter Visit Diagnoses Not on filedocumented in this encounter Care Teams Recycling Crew Supervisor Relationship Specialty Start Date End Date Gloria Villarreal [address] [place] [address] PCP - Insurance Assigned PCP 01/14/24 Lewis Wilkins Jr. [address] [place] [address] Rheumatology 02/21/24 Alhaji Lauren MD [facility] Juliazac Treyjodie PEDRAZA [address] [place] [address] Consulting Provider Medical Oncology 07/26/24 documented as of this encounter
--- OUTSIDE RECORDS SUMMARY | 2025-09-14 11:11 | XMS_ITS | Encounter Summary ---
Author Organization [facility] Address [address] [place] [address] Phone Care Team Providers Care Grey Roll Man Name Role Phone Gloria Villarreal MD Primary Care Provider [phone] Encounter Details Date Type Department Care Team (Late st Contact Info) Description 07/08/2022 Procedure Pass [facility] Endoscopy Admitting Dept Virtual Department [address] [place] [address] Social History Tobacco Use Types Packs/Day Years [...] on filedocumented in this encounter Care Teams Grey Roll Man Relationship Specialty Start Date End Date Gloria Villarreal MD [address] [place] [phone] PCP - General Internal Medicine 04/15/22 documented as of this encounter Additional Source Comments The information contained in this document represents components of the legal health record. It is not the complete legal health record.[facility]
--- OUTSIDE RECORDS SUMMARY | 2025-09-14 11:12 | XMS_ITS | Clinical Summary ---
Author Organization Nhung Cifuentes [facility] Address [address] [place] [address] Care Team Providers Care Technical Data Analyst Name Role Phone Gloria Villarreal Unavailable Lewis Wilkins Jr. Unavailable [phone] Alhaji Lauren MD Unavailable [phone] Allergies Active Allergy Reactions Criticality Noted Date Comments Amoxicillin Unknown Azathioprine Unknown Etanercept Unknown Infliximab Other (See Comments) Other Reaction(s): lesions Nickel Unknown Penicillins Unknown Tramadol Other (See Comments),GI Intolerance Other Reaction(s): Lightheadedness Medications alendronate (FOSAMAX) 70 MG tablet 1 tablet(s) by mouth once a week 3 Active acetaminophen (acetaminophen Extra Strength) 500 MG tablet by mouth as needed 1 Active atorvaSTATin (LIPITOR) 20 MG tablet 1 tablet(s) by mouth once daily 8 Active diphenhydrAMINE (BenadryL) 25 mg capsule 1 capsule(s) by mouth as needed for itching 9 Active biotin 10,000 mcg cap capsule 1 capsule(s) by mouth once a day 1 Active aspirin-acetami nophen-caffeine (EXCEDRIN EXTRA STRENGTH) 250-250-65 mg per tablet by mouth as needed 1 Active certolizumab pegoL (CIMZIA) 400 mg/2 mL (200 mg/mL x 2) SyKt 1 dose subcutaneous monthly 0 Active omega 3-apj-ifk-fish oil (Fish OiL) 1,000 mg (120 mg-180 mg) cap capsule(s) oral 0 Active insulin lispro (HumaLOG U-100 Insulin) 100 unit/mL injection per sliding scale 8 Active insulin glargine (LANTUS SOLOSTAR U-100 INSULIN) 100 unit/mL (3 mL) SubQ Pen 14 units sq once daily in the pm 3 Active lisinopriL (PRINIVIL,ZESTR IL) 2.5 MG tablet 1 tablet(s) by mouth once a day 2 Active LORazepam (ATIVAN) 1 MG tablet 1 tablet(s) by mouth as needed 8 Active ondansetron (ZOFRAN) 4 MG tablet 1 tablet(s) by mouth Q8hour as needed for nausea/vomiting 2 Active multivitamin per tablet tablet(s) by mouth once a day 8 Active aspirin 81 MG EC tablet tablet(s) by mouth once a day 8 Active omeprazole (PriLOSEC) [address] capsule 1 capsule(s) by mouth once a day 1 Active cholecalciferol (VITAMIN D3) 10 mcg (400 unit) cap capsule 2 capsule(s) by mouth once a day 1 Active Encounters Date Type Department Care Team Description 08/08/2025 9:30 AM EST Telemedicine [facility] Oncology [address] [address] Alhaji Lauren MD Neuroendocrine tumor (HCC) (Primary Dx) 08/05/[address] [address] Alhaji Lauren MD call k 08/03/[address] [address] Alhaji Lauren MD 07/25/2025 8:13 AM EST - 07/25/2025 11:59 PM EST Hospital Encounter [facility] CT Scan [address] [place] [address] Alhaji Lauren MD Neuroendocrine tumor (HCC) (Primary Dx) Discharge Disposition: Home or Self Care from Last 3 Months Social History Tobacco Use Types Packs/Day Years Used Date Smoking Tobacco: Some Days Cigarettes Passive Smoke Exposure: Never Smokeless Tobacco: Never Tobacco Cessation:Ready to Q uit: Not Asked; Counseling Given: Not Answered Comments Unknown Sex and Gender Information Value Date Recorded Sex Assigned at Not on file Legal Sex Female 1:26 PM EST Gender Identity Not on file Sexual Orientation Not on file Last Filed Vital Signs Vital Sign Reading Time Taken Comments Blood Pressure 156/85 02/01/2025 8:57 AM EDT Pulse 75 02/01/2025 8:57 AM EDT Temperature 36.9 C (98.4 F) 02/01/2025 8:57 AM EDT Respiratory Rate 16 02/01/2025 8:57 AM EDT Oxygen Saturation 96% 02/01/2025 8:57 AM EDT Inhaled Oxygen Concentration - - Weight 74.5 kg (164 lb 4.8 oz) 02/01/2025 8:57 A M EDT Height 159.2 cm (5' 2.68 ) 02/01/2025 8:57 AM ED T Body Mass Index 29.41 02/01/2025 8:57 AM EDT Plan of Treatment Upcoming Encounters Date Type Department Care Team (Late st Contact Info) Description 01/25/2026 9:15 AM EDT Office Visit [facility] Urology (Surgical Specialties) [address] [address] Dominga Singleton MD [address] [place] [address] In Person with Physician 01/30/2026 12:30 PM EDT Appointment [facility] PET Scan [address] [address] Alhaji Lauren MD [address] [place] [address] In Person with Resource 01/30/2026 1:45 PM EDT Appointment [facility] PET Scan [address] [address] Alhaji Lauren MD [address] GAN [address] [place] [address] In Person with Resource 02/07/2026 9:45 AM EDT Lab [facility] Oncology [address] [place] [address] Alhaji Lauren MD [address] [address] In Person with Resource 02/07/2026 10:30 AM EDT Office Visit [address], [address] [place] [address] Alhaji Lauren MD [address] [address] In Person with Physician Health Maintenance Due Date Last Done Comments Hemoglobin A1c 1954 Lipid Panel 1954 Urine Microalbumin 1954 Depression Screening 1966 Hepatitis C Screening 01/27/1972 Breast Cancer Screening 1994 CT Colonography 1999 Colonoscopy 1999 Colorectal Cancer Screening 1999 FIT 1999 FOBT 1999 Multitarget Stool DNA (Cologuard) 1999 Sigmoidoscopy 1999 Osteoporosis Screening 2019 Medicare Initial AWV [id number] 01/21/2020 Pneumococcal Vaccine: 50+ Years (3 of 3 - PCV20 or PCV21) 11/11/2022 11/11/2017, 11/11/2017 COVID-19 Vaccine (2024- season) 2025 11/11/2022, 09/06/2021, 11/23/2020, Additional history exists Influenza Vaccine (#1) 2025 , 06/25/2024, 07/01/2023, Additional history exists Blood Pressure 02/01/2026 02/01/2025 DTaP,Tdap,and Td Vaccines (3 - Td or Tdap) 06/04/2031 06/04/2021, 02/19/2013 Meningococcal Vaccines Aged Out 11/11/2017, 2017 No longer eligible based on patient's age to complete this topic Zoster Vaccine Completed 05/08/2021, 01/22/2021 Meningococcal B Vaccines Aged Out No longer eligible based on patient's age to complete this topic Procedures Procedure Name Priority Date/Time Associated Diagnosis Comments POCI CREATININE Routine 07/25/2025 9:[address] CHEST W CONTRAST Routine 07/25/2025 8 :58 AM EST Neuroendocrine tumor (HCC) CTA ABDOMEN AND PELVIS W WO CONTRAST (GI BLEED) Routine 07/25/2025 8:58 AM EST Neuroendocrine tumor (HCC) from Last 3 Months Results * POCT Creatinine (07/25/2025 9:36 AM EST) Pathologist [facility] Creatinine, POC 0.8 0.4 - 1.1 mg/dL 07/25/2025 8:37 AM EST [facility] Comment: @Serial Exweyo=[id number] @Flyer Repairer YY=[id number] Hydroxyurea may cause falsely elevated values with this method. eGFR, POC 79 Greater than or equal to 60 mL/min/1.73m 2 07/25/2025 8:37 AM EST [facility] Comment:eGFR is calculated u sing the 2020 CKD-EPI equation. Blood 07/25/2025 9:36 AM EST 07/25/2025 8:37 AM EST us Alhaji Lauren MD POCT ORDERABLES - DEVICE Fin al Result [facility] [address] [place] [address], * CT Angiogram Abdomen Pelvis With and Without Contrast : Arteriogram (07/25/2025 8:58 AM EST) Anatomical Region Laterality Modality Abdomen, Pelvis Computed Tomogra phy 07/28/2025 11:3 8 AM EST Impressions 08/01/2025 1:34 PM EST 1. Mild interval increase in size of gastrohepatic lymph node now measuring up to 0.8 cm, previously 0.6 cm which was also previously noted to have increased DOTATATE avidity on recent PET/CT from 24 Jan 2025, concerning for progression of disease. 2. Multiple punctate hyperenhancing arterial foci throughout the liver are nonspecific but may represent flash filling hemangiomas and are largely unchanged when compared to the prior study from 26 July 2024. These were not previously DOTATATE avid. Attention on follow-up. 3. Chest findings are separately reported. BY ELECTRONICALLY SIGNING THIS REPORT, I THE ATTENDING PHYSICIAN ATTEST THAT I HAVE REVIEWED THE IMAGES FOR THE ABOVE PROCEDURE(S) AND AGREE WITH THE FINDINGS DOCUMENTED. MD Peewee Torres MD, electronically signed on Aug 01 2025 01:34PM Narrative 08/01/2025 1:34 PM EST EXAMINATION: CT ANGIOGRAM ABDOMEN PELVIS W WO CONTRAST INDICATION: Neuroendocrine tumor restaging; TECHNIQUE: Abdomen and pelvis CTA: Non-contrast and multiphasic post-contrast images were acquired through the abdomen and pelvis. MIP reconstructions were performed on independent workstation and reviewed on PACS. DOSE: Acquisition sequence: 1) Stationary Acquisition 3.6 s, 0.5 cm; CTDIvol = 21.9 mGy (Body) DLP = 10.9 mGy-cm 2) Spiral Acquisition 3.5 s, 21.5 cm; CTDIvol = 21.6 mGy (Body) DLP = 463.5 mGy-cm 3) Spiral Acquisition 8.2 s, 62.9 cm; CTDIvol = 25.2 mGy (Body) DLP = 1,584.9 mGy-cm Total DLP (Body) = 2,059 mGy-cm COMPARISON: CT abdomen and pelvis with contrast from 26 July 2024. PET-CT neuroendocrine from 24 Jan 2025. FINDINGS: VASCULAR: Minimal atherosclerosis. No abdominal aortic aneurysm. LOWER CHEST: Chest findings reported separately. ABDOMEN: LIVER: Normal liver contour. Multiple hyperenhancing arterial foci is nonspecific but may represent flash filling hemangiomas (03:17, 22, 25), unchanged when compared to the prior study from 26 July 2020. These were not DOTATATE avid. Similar appearance of multiple scattered hepatic cysts. BILE DUCTS: Mild increase in central intrahepatic biliary ductal dilatation, [id number]-[id number]-[id number]-right. Unchanged prominence of the common bile duct, which tapers smoothly to the ampulla, likely reservoir effect from prior cholecystectomy. GALLBLADDER: Surgically absent. PANCREAS: Status post prior distal pancreatectomy. Pancreatic remnant is unremarkable and without focal lesion or ductal dilatation. SPLEEN: Prior splenectomy. ADRENALS: Normal. KIDNEYS AND URETERS: No hydronephrosis or hydroureter. No concerning renal lesion. GASTROINTESTINAL: Limited assessment of the stomach is unremarkable. No bowel dilatation. Colonic diverticulosis, no diverticulitis. Appendix is normal. PELVIS: REPRODUCTIVE ORGANS: Uterus and bilateral adnexae are unremarkable (evaluation limited using CT). BLADDER: Unremarkable. PERITONEUM/RETROPERITONEUM: No free fluid. LYMPH NODES: Mild interval increase in gastrohepatic lymph node measuring up to 0.8 cm, previously 0.6 cm (07:23). This was also noted to have increase in FDG avidity on the recent PET/CT from 24 Jan 2025, concerning for progression of disease. Additional 0.5 cm gastrohepatic lymph node (03:19), unchanged. BONES: No worrisome osseous lesion or acute fracture. SOFT TISSUES: Small fat containing umbilical hernia. Procedure Note Peewee Stanton MD - 08/01/2025 EXAMINATION: CT ANGIOGRAM ABDOMEN PELVIS W WO CONTRAST INDICATION: Neuroendocrine tumor restaging; TECHNIQUE: Abdomen and pelvis CTA: Non-contrast and multiphasic post-contrast images were acquired through the abdomen and pelvis. MIP reconstructions were performed on independent workstation and reviewed on PACS. DOSE: Acquisition sequence: 1) Stationary Acquisition 3.6 s, 0.5 cm; CTDIvol = 21.9 mGy (Body) DLP = 10.9 mGy-cm 2) Spiral Acquisition 3.5 s, 21.5 cm; CTDIvol = 21.6 mGy (Body) DLP = 463.5 mGy-cm 3) Spiral Acquisition 8.2 s, 62.9 cm; CTDIvol = 25.2 mGy (Body) DLP = 1,584.9 mGy-cm Total DLP (Body) = 2,059 mGy-cm COMPARISON: CT abdomen and pelvis with contrast from 26 July 2024. PET-CT neuroendocrine from 24 Jan 2025. FINDINGS: VASCULAR: Minimal atherosclerosis. No abdominal aortic aneurysm. LOWER CHEST: Chest findings reported separately. ABDOMEN: LIVER: Normal liver contour. Multiple hyperenhancing arterial foci is nonspecific but may represent flash filling hemangiomas (03:17, 22, 25), unchanged when compared to the prior study from 26 July 2020. These were not DOTATATE avid. Similar appearance of multiple scattered hepatic cysts. BILE DUCTS: Mild increase in central intrahepatic biliary ductal dilatation, [id number]-nyps-right. Unchanged prominence of the common bile duct, which tapers smoothly to the ampulla, likely reservoir effect from prior cholecystectomy. GALLBLADDER: Surgically absent. PANCREAS: Status post prior distal pancreatectomy. Pancreatic remnant is unremarkable and without focal lesion or ductal dilatation. SPLEEN: Prior splenectomy. ADRENALS: Normal. KIDNEYS AND URETERS: No hydronephrosis or hydroureter. No concerning renal lesion. GASTROINTESTINAL: Limited assessment of the stomach is unremarkable. No bowel dilatation. Colonic diverticulosis, no diverticulitis. Appendix is normal. PELVIS: REPRODUCTIVE ORGANS: Uterus and bilateral adnexae are unremarkable (evaluation limited using CT). BLADDER: Unremarkable. PERITONEUM/RETROPERITONEUM: No free fluid. LYMPH NODES: Mild interval increase in gastrohepatic lymph node measuring up to 0.8 cm, previously 0.6 cm (07:23). This was also noted to have increase in FDG avidity on the recent PET/CT from 24 Jan 2025, concerning for progression of disease. Additional 0.5 cm gastrohepatic lymph node (03:19), unchanged. BONES: No worrisome osseous lesion or acute fracture. SOFT TISSUES: Small fat containing umbilical hernia. IMPRESSION: 1. Mild interval increase in size of gastrohepatic lymph node now measuring up to 0.8 cm, previously 0.6 cm which was also previously noted to have increased DOTATATE avidity on recent PET/CT from 24 Jan 2025, concerning for progression of disease. 2. Multiple punctate hyperenhancing arterial foci throughout the liver are nonspecific but may represent flash filling hemangiomas and are largely unchanged when compared to the prior study from 26 July 2024. These were not previously DOTATATE avid. Attention on follow-up. 3. Chest findings are separately reported. BY ELECTRONICALLY SIGNING THIS REPORT, I THE ATTENDING PHYSICIAN ATTEST THAT I HAVE REVIEWED THE IMAGES FOR THE ABOVE PROCEDURE(S) AND AGREE WITH THE FINDINGS DOCUMENTED. MD Peewee Torres MD, electronically signed on Aug 01 2025 01:34PM us Alhaji Lauren MD IMG CT ORDERABLES Final Resu lt * CT Chest With Contrast (07/25/2025 8:58 AM EST) Anatomical Region Laterality Modality Chest Computed Tomogra phy 07/26/2025 4:19 PM EST Impressions 07/27/2025 10:52 AM EST Multiple stable 2-4 mm pulmonary nodules. No new or growing pulmonary nodules. Stable multiple small mediastinal and hilar lymph nodes, including the previously PET avid left supraclavicular and right lower paratracheal lymph nodes. No new or enlarging intrathoracic lymph nodes. Please refer to separately dictated CT abdominopelvic report from same date for subdiaphragmatic findings. BY ELECTRONICALLY SIGNING THIS REPORT, I THE ATTENDING PHYSICIAN ATTEST THAT I HAVE REVIEWED THE IMAGES FOR THE ABOVE PROCEDURE(S) AND AGREE WITH THE FINDINGS DOCUMENTED. MD Gentry Nguyen MD, electronically signed on Jul 27 2025 10:52AM Narrative 07/27/2025 10:52 AM EST EXAMINATION: CT CHEST W CONTRAST INDICATION: neuroenodocrine tumor restaging; TECHNIQUE: Contiguous axial images were obtained through the chest with intravenous contrast. Coronal, sagittal and MIP reformats were performed. DOSE: Acquisition sequence: 1) Stationary Acquisition 3.6 s, 0.5 cm; CTDIvol = 21.9 mGy (Body) DLP = 10.9 mGy-cm 2) Spiral Acquisition 3.5 s, 21.5 cm; CTDIvol = 21.6 mGy (Body) DLP = 463.5 mGy-cm 3) Spiral Acquisition 8.2 s, 62.9 cm; CTDIvol = 25.2 mGy (Body) DLP = 1,584.9 mGy-cm Total DLP (Body) = 2,059 mGy-cm Note: This radiation dose report was copied from accession #[id number] (CT ANGIOGRAM ABDOMEN PELVIS W WO CONTRAST) COMPARISON: Prior PET chest CT of 24 Jan 2025, CT chest dated 26 July 2024 FINDINGS: NECK, THORACIC INLET, AXILLAE AND CHEST WALL: Similar hypodense nodules measuring up to 7 mm in left lobe of thyroid, warrants further imaging evaluation with dedicated thyroid ultrasound.. Stable 8 mm left supraclavicular lymph node (05:31), was avid on recent PET-CT study. No soft tissue abnormality, however evaluation of the breasts is exclusively reserved for dedicated breast imaging. HEART AND VASCULATURE: The heart is normal in size and shape. No pericardial effusion. No significant atherosclerotic calcifications in the coronary arteries. The aorta and pulmonary arteries are normal in caliber throughout. No central pulmonary embolism within the limitation of this nondedicated technique. MEDIASTINUM AND LULU: The esophagus is unremarkable. Small mediastinal and hilar lymph nodes measuring up to 8 mm in right lower paratracheal station (5:107), non enlarged or growing. PLEURA: No pleural effusions. No pneumothorax. LUNGS: Multiple stable 2-4 mm pulmonary nodules series 5, image 39, 47, 48, 56, 65, 69, 135, 138, 147, 170. No new or growing pulmonary nodules. No focal lung consolidations. Mild subsegmental atelectasis in middle lobe, lingular segment and both lower lobes. The central airways are patent. Mild diffuse bilateral bronchial wall thickening, consistent with airway inflammation. CHEST CAGE: No suspicious osseous lesions. No acute fractures. UPPER ABDOMEN: Please see separate abdominopelvic CT report from the same date for subdiaphragmatic findings. Procedure Note Gentry Reilly MD - 07/27/2025 EXAMINATION: CT CHEST W CONTRAST INDICATION: neuroenodocrine tumor restaging; TECHNIQUE: Contiguous axial images were obtained through the chest with intravenous contrast. Coronal, sagittal and MIP reformats were performed. DOSE: Acquisition sequence: 1) Stationary Acquisition 3.6 s, 0.5 cm; CTDIvol = 21.9 mGy (Body) DLP = 10.9 mGy-cm 2) Spiral Acquisition 3.5 s, 21.5 cm; CTDIvol = 21.6 mGy (Body) DLP = 463.5 mGy-cm 3) Spiral Acquisition 8.2 s, 62.9 cm; CTDIvol = 25.2 mGy (Body) DLP = 1,584.9 mGy-cm Total DLP (Body) = 2,059 mGy-cm Note: This radiation dose report was copied from accession #[id number] (CT ANGIOGRAM ABDOMEN PELVIS W WO CONTRAST) COMPARISON: Prior PET chest CT of 24 Jan 2025, CT chest dated 26 July 2024 FINDINGS: NECK, THORACIC INLET, AXILLAE AND CHEST WALL: Similar hypodense nodules measuring up to 7 mm in left lobe of thyroid, warrants further imaging evaluation with dedicated thyroid ultrasound.. Stable 8 mm left supraclavicular lymph node (05:31), was avid on recent PET-CT study. No soft tissue abnormality, however evaluation of the breasts is exclusively reserved for dedicated breast imaging. HEART AND VASCULATURE: The heart is normal in size and shape. No pericardial effusion. No significant atherosclerotic calcifications in the coronary arteries. The aorta and pulmonary arteries are normal in caliber throughout. No central pulmonary embolism within the limitation of this nondedicated technique. MEDIASTINUM AND LULU: The esophagus is unremarkable. Small mediastinal and hilar lymph nodes measuring up to 8 mm in right lower paratracheal station (5:107), non enlarged or growing. PLEURA: No pleural effusions. No pneumothorax. LUNGS: Multiple stable 2-4 mm pulmonary nodules series 5, image 39, 47, 48, 56, 65, 69, 135, 138, 147, 170. No new or growing pulmonary nodules. No focal lung consolidations. Mild subsegmental atelectasis in middle lobe, lingular segment and both lower lobes. The central airways are patent. Mild diffuse bilateral bronchial wall thickening, consistent with airway inflammation. CHEST CAGE: No suspicious osseous lesions. No acute fractures. UPPER ABDOMEN: Please see separate abdominopelvic CT report from the same date for subdiaphragmatic findings. IMPRESSION: Multiple stable 2-4 mm pulmonary nodules. No new or growing pulmonary nodules. Stable multiple small mediastinal and hilar lymph nodes, including the previously PET avid left supraclavicular and right lower paratracheal lymph nodes. No new or enlarging intrathoracic lymph nodes. Please refer to separately dictated CT abdominopelvic report from same date for subdiaphragmatic findings. BY ELECTRONICALLY SIGNING THIS REPORT, I THE ATTENDING PHYSICIAN ATTEST THAT I HAVE REVIEWED THE IMAGES FOR THE ABOVE PROCEDURE(S) AND AGREE WITH THE FINDINGS DOCUMENTED. Om Abran Panta, MD Gentry Tommie, MD, electronically signed on Jul 27 2025 10:52AM Alhaji Lauren MD IMG CT ORDERABLES Final Resu lt from Last 3 Months Insurance MEDICARE [facility] MEDICARE SUPPLEMENT MEDICARE [facility] MEDICARE SUPPLEMENT Advance Directives Documents on File Type Date Recorded Patient Nurse Receptionist Expl anation Health Care Proxy 09/18/2021 12:00 AM Adv ance Care Planning_HEALTH CARE PROXY: HCP Care Teams Technical Data Analyst Relationship Specialty Start Date End Date Gloria Villarreal [address] [address] PCP - Insurance Assigned PCP 01/14/24 Lewis Wilkins Jr. [facility] [place] [address] Rheumatology 02/21/24 Alhaji Lauren MD [address] [place] [address] 9 [place] [address] Consulting Provider Medical Oncology 07/26/24
--- OUTSIDE RECORDS SUMMARY | 2025-09-14 11:12 | XMS_ITS | Encounter Summary ---
Author Organization [facility] Cif[employer] [facility] Address [address] [place] [id number] Care Team Providers Care Medical Practice Administrator Name Role Phone Gloria Villarreal Unavailable Lewis Wilkins Jr. Unavailable [phone] Alhaji Lauren MD Unavailable [phone] Encounter Details Date Type Department Care Team (Late st Contact Info) Description 07/20/2024 Telephone [facility] Medical Oncology [address] [place] [address] Alhaji Lauren MD [address] [place] [id number] Social History Tobacco Use Types Packs/Day Years [...] Description 01/25/2026 9:15 AM EDT Office Visit [facility] Urology (Surgical Specialties) [address] [address] Dominga Singleton MD [address] [place] [address] In Person with Physician 01/30/2026 12:30 PM EDT Appointment [facility] PET Scan [address] [place] [address] Alhaji Lauren MD [address] PEDRAZA [address] [place] [address] In Person with Resource 01/30/2026 1:45 PM EDT Appointment [facility] PET Scan [address] [address] Alhaji Lauren MD [address] [address] In Person with Resource 02/07/2026 9:45 AM EDT Lab [facility] Medical Oncology [address] [address] Alhaji Lauren MD [address] [place], [place] [address]zac Powers [address] [address] In Person with Resource 02/07/2026 10:30 AM EDT Office Visit [facility] Medical Oncology [address] [address] Alhaji Lauren MD [address] [place] [address] [address] In Person with Physician documented as of this encounter Visit Diagnoses Not on filedocumented in this encounter Care Teams Medical Practice Administrator Relationship Specialty Start Date End Date Gloria Villarreal [address] [place] [address] PCP - Insurance Assigned PCP 01/14/24 Lewis Wilkins Jr. [address] [place] [address] Rheumatology 02/21/24 Alhaji Lauren MD [facility] Juliazac Priya PEDRAZA [address] [place] [address] Consulting Provider Medical Oncology 07/26/24 documented as of this encounter
--- OUTSIDE RECORDS SUMMARY | 2025-09-14 11:12 | XMS_ITS | Encounter Summary ---
Author Organization [facility] Address [address] [place] [address] Phone Care Team Providers Care Local Driver Name Role Phone Pcp, Unknown Primary Care Provider Unavailaminata e Gloria Villarreal MD Primary Care Provider [phone] Encounter Details Date Type Department Care Team (Late st Contact Info) Description 04/10/2022 Procedure Pass [address] [place] [address] Social History Tobacco Use Types Packs/Day Years [...] on filedocumented in this encounter Care Teams Local Driver Relationship Specialty Start Date End Date Pcp, Unknown PCP - General 04/10/22 04/14/22 Gloria Villarreal MD [address] [place] [address] PCP - General Internal Medicine 04/15/22 documented as of this encounter Additional Source Comments The information contained in this document represents components of the legal health record. It is not the complete legal health record.[facility]
--- OUTSIDE RECORDS SUMMARY | 2025-09-14 11:12 | XMS_ITS | Encounter Summary ---
Author Organization [facility] Address [address] [place] [address] Phone Care Team Providers Care Wire Bound Box Machine Operator Name Role Phone Pcp, Unknown Primary Care Provider Gloria Dahl MD Primary Care Provider [phone] Reason for Referral * MRI/CAT Scan - Closed Specialty Diagnoses / Procedures Referred By Contac t Referred To Contact Radiology Diagnoses LLQ abdominal pain Abnormal findings on diagnostic imaging of liver and biliary tract Procedures MRI Pelvis (GI/) Lee Albarran MD Phone: tel: fax: mailto:[email or web address] Referral ID Status Reason Start Date Expiration Date Visits Re quested Visits Authorized [id number] Closed 04/10/2022 04/10/2023 1 1 * MRI/CAT Scan - Closed Specialty Diagnoses / Procedures Referred By Contac t Referred To Contact Radiology Diagnoses LLQ abdominal pain Abnormal findings on diagnostic imaging of liver and biliary tract Procedures MRI Cholangiopancreatography (MRCP) Lee Albarran MD Phone: tel: fax: mailto:[email or web address] Referral ID Status Reason Start Date Expiration Date Visits Re quested Visits Authorized [id number] Closed 04/10/2022 04/10/2023 1 1 Encounter Details Date Type Department Care Team (Latest Contact Info) Description 04/10/2022 Transcribe Orders Virtual Department [address] [place] [address] Julee Castrejon CNP [address] [place] [address] [email or web address] abdominal pain (Primary Dx); Abnormal findings [...] tract documented in this encounter Care Teams Wire Bound Box Machine Operator Relationship Specialty Start Date End Date Pcp, Unknown PCP - General 04/10/22 04/14/22 Po, Gloria Taylor MD [address] [place] [address] PCP - General Internal Medicine 04/15/22 documented as of this encounter Additional Source Comments The information contained in this document represents components of the legal health record. It is not the complete legal health record.[facility]
--- OUTSIDE RECORDS SUMMARY | 2025-09-14 11:12 | XMS_ITS | Encounter Summary ---
Author Organization [facility] Address [address] [place] [address] Phone Care Team Providers Care Chemistry Technician Name Role Phone Pcp, Unknown Primary Care Provider Unavailaminata e Gloria Villarreal MD Primary Care Provider [phone] Encounter Details Date Type Department Care Team (Late st Contact Info) Description 04/10/2022 Procedure Pass [address] [place] [address] Social History Tobacco Use Types Packs/Day Years [...] on filedocumented in this encounter Care Teams Chemistry Technician Relationship Specialty Start Date End Date Pcp, Unknown PCP - General 04/10/22 04/14/22 Gloria Villarreal MD [address] [place] [address] PCP - General Internal Medicine 04/15/22 documented as of this encounter Additional Source Comments The information contained in this document represents components of the legal health record. It is not the complete legal health record.[facility]
[2025-09-14 11:23] VITALS: BP 140/78; PULSE 75; O2SAT 96; BMI 29.3
--- NOTE | 2025-09-14 11:23 | A.OFFPC_ITS ---
Vital Signs 09/14/25 11:23 Height 5 ft 2.5 in Weight 163 lb BMI 29.3 BP 140/78 H Blood Pressure Location Lt brachial Position Sitting Pulse 75 Pulse Source Pulse Oximeter Pulse Oximetry (%) 96 Oxygen Delivery Method Room Air Intake Visit Reasons: 3 month f/u Allergies azathioprine (From IMURAN) Allergy (Unknown, Verified 09/14/25 11:23) ABNORMAL LABS,HIVES etanercept (From ENBREL) Allergy (Unknown, Verified 09/14/25 11:23) HIVES infliximab (From REMICADE) Allergy (Unknown, Verified 09/14/25 11:23) RASH levofloxacin Allergy (Unknown, Verified 09/14/25 11:23) GI Upset nickel (NICKEL) Allergy (Unknown, Verified 09/14/25 11:23) UNKNOWN tramadol Adverse Reaction (Verified 09/14/25 11:23) Nausea, sweating, dizzy Medication List - Last Reconciled 09/14/25 by Gloria Villarreal MD [AutoPAP 5-15 cm of water humidified AIR As directed] acetone (urine) test (Ketostix strips) As directed albuterol sulfate 90 mcg/actuation 1 puff inhalation QID PRN alcohol swabs 400 pad topical 6XD alendronate 70 mg PO ascorbic acid (vitamin C) 500 mg PO DAILY 90 days atorvastatin 20 mg PO DAILY blood glucose control, high As directed to calibrate meter blood pressure monitor (Blood Pressure Kit) As directed blood sugar diagnostic (OneTouch Verio test strips) TEST 3 TIMES A DAY blood-glucose meter (OneTouch Verio Flex Start kit) As directed blood-glucose sensor (Tinypay.me G7 Sensor device) As directed change every 10 days bupropion HCl XL (Wellbutrin XL) 300 mg PO QAM certolizumab pegol (Cimzia) 200 mg subcut Q4W cholecalciferol (vitamin D3) 25 mcg PO DAILY fluticasone propionate 50 mcg/actuation (Flonase Allergy Relief) 2 sprays intranasal DAILY gabapentin 100 mg PO BEDTIME 3 months glucagon 3 mg/actuation (Baqsimi) 3 mg intranasal BID PRN 30 days hydroxyzine HCl 25 mg PO BID 7 days insulin lispro (Humalog KwikPen (U-100) Insulin) inject 3-5 units prior to meals subcutaneously 3 times a day; levocetirizine 5 mg PO DAILY PRN lisinopril 30 mg PO DAILY lorazepam 1 mg PO DAILY PRN 30 days multivitamin 1 tab PO DAILY omega-3 fatty acids (Fish Oil Concentrate) 1,000 mg PO DAILY omeprazole 40 mg PO .prn ondansetron 8 mg PO Q8H PRN pen needle, diabetic (BD Ultra-Fine Margaret Pen Needle) USE 4 PEN NEEDLES DAILY WITH INSULIN Tresiba FlexTouch U-200 (insulin degludec) 20 units (0.1 mL) subcut BEDTIME 90 days NS Tobacco use date assessed: 12/15/24 Fall risk assessment: No Falls in past year Last assessed Fall Risk: 09/14/25 Dental Screening Dental Screen Date: 12/15/24 HPI 3 month f/u HPI Details panreaTIC mass npo treamtent but see [place] HPI Comments History of Present Illness Details History of Present Illness The patient is a 70-year-old female presenting for a follow-up visit for management of multiple chronic conditions. She has a history of a neuroendocrine tumor of the pancreas diagnosed in 2017 and a history of urinary bladder cancer. She is followed by oncology in [place], and a recent CT in July showed that her pancreatic nodules are growing very slowly, with her oncologist recommending continued observation without treatment at this time. The patient has a history of type 2 diabetes mellitus and is followed by endocrinology. Her most recent hemoglobin A1c was 7.5%, and she reports postprandial hyperglycemia, mainly after dinner. Her insulin regimen includes Tresiba and Humalog, though her insurer is switching her from Tresiba back to Lantus in September. Her cardiovascular history includes hypertension, hypercholesterolemia, and bilateral carotid artery stenosis. She takes lisinopril 30 mg for blood pressure and reports good readings at home, as well as atorvastatin 20 mg for cholesterol, with a recent LDL of 80 mg/dL. Her pulmonary history is significant for being a smoker with COPD and obstructive sleep apnea. Her COPD is stable on an albuterol inhaler, and she demonstrates excellent compliance (94%) with her CPAP machine, which she reports is beneficial. An in-lab sleep study determined her sleep apnea was severe. Musculoskeletal history includes osteoporosis, for which she takes alendronate, and osteoarthritis of the shoulder. She received a cortisone injection for her shoulder pain, which provided significant relief. Her last bone density scan was in December 2022. Other chronic conditions include GERD, allergic rhinitis with idiopathic urticaria, and generalized anxiety disorder. She follows with gastroenterology, with her last colonoscopy in June 2022, and has a family history of colon cancer. She also sees specialists for allergy, rheumatology, and urology. Recent lab work done under rheumatology showed a normal CBC, electrolytes, and renal function, but mildly elevated liver enzymes and an HbA1c of 7.5%. Urinalysis was negative for proteinuria but did show white blood cells, though the patient is asymptomatic. Health Maintenance The patient was advised that her mammogram is due. Her immunizations are up to date. A follow-up visit is scheduled in 3 months. Social History - Substance Use: The patient is a curren t smoker. - Living Situation: As of May, the patient participates in a home-sharing program, living with and caring for a 54-year-old man with special needs. - Activity Level: The patient has been p articipating in physical therapy and has been encouraged to be more active. Results - Labs: - CBC: Normal blood count with no anemia . - CMP: Normal renal function and electro lytes. - Blood sugar was 114 mg/dL. - Two liver function tests were mildly e levated. - Hemoglobin A1c: 7.5%. - Lipid Panel: LDL 80 mg/dL, Triglycerid es 46 mg/dL, HDL 63 mg/dL. - Vitamins/Hormones: B12, vitamin D, fol ic acid, and thyroid function are within normal limits. - Urinalysis: Negative for proteinuria, positive for white blood cells. - Imaging: - Shoulder X-ray (May): Showed mod erate degenerative arthritis of the glenohumeral joint and an osteophyte. - Thyroid Ultrasound: Low-risk (Category 1) with no significant findings. - CT Scan (Pancreas, July): Showed s low growth of neuroendocrine tumor nodules. 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 Thyroid nodule Right tibial fracture Tobacco abuse Fractured coccyx Pulmonary nodule History of DVT (deep vein thrombosis) Behcet's syndrome COPD (chronic obstructive pulmonary disease) Osteoporosis Anxiety GERD (gastroesophageal reflux disease) Malignant neoplasm of pancreas, unspecified Obstructive sleep apnea Surgical History History of back surgery History of surgery History of colonoscopy History of varicose veins of lower extremity History of surgery History of pancreatic surgery History of open reduction and internal fixation (ORIF) procedure H/O splenectomy History of cholecystectomy Family History Father Diabetes Advanced cardiac disease Mother Asthma Osteoporosis Brain cancer Brother Lung cancer Sister Breast cancer History of Coumadin therapy Brother Colostomy in place Daughter No problems noted. Son No problems noted. Social History Household Members: None Housing: House Do you presently have visiting nurse or other home services: No Alcohol intake: never Patient Tobacco Use Status: Current everyday Tobacco user Tobacco use type: Cigarette Cigarette Packs Per Day: 0.5 Cigarettes Per Day: 10 Years Smoked: 49 , still smoking (05/2025) e-Cigarette/Vaping Use: Never Used Second Hand Smoke Exposure: No Advance Directives Date on File: 12/11/21 service: No Current occupational status: retired Cognitive needs: No Hearing needs: No Vision needs: Yes Questionnaire PHQ-9 Over the last 2 weeks, how often have you been bothered by any of the following problems? 1. Little interest or pleasure in doing things: not at all 2. Feeling down, depressed, or hopeless: not at all 3. Trouble falling or staying asleep, or sleeping too much: not at all 4. Feeling tired or having little energy: not at all 5. Poor appetite or overeating: not at all 6. Feeling bad about yourself - or that you are a failure or have let yourself or your family down: not at all 7. Trouble concentrating on things, such as reading the newspaper or watching television: not at all 8. Moving or speaking so slowly that other people could have noticed. Or the opposite - being so fidgety or restless that you have been moving around a lot more than usual: not at all 9. Thoughts that you would be better off or of hurting yourself in some way: not at all Total score: 0 Depression Screening Interpretation: Negative Depression Screening Done: Yes Source: Developed by Drs. Sukhdeep Franz, Ana Alexander, Varinder Muro and colleagues, with an educational malachi from [employer]. Thrive Questionnaire Date Thrive assessed: 12/15/24 I am a: Patient What is your living situation today?: I have a steady place to live Within the past 12 months, did the food you bought not last and you didn't have the money to get more?: Never true Within the past 12 months, did you worry whether your food would run out before you got money to buy more?: Sometimes True Do you have trouble paying for medicines?: Yes Do you have trouble getting transportation to medical appointments?: No Do you have trouble paying your heating and electricity bill?: Yes Do you have trouble taking care of your child, family member or friend?: No Do you have trouble with day-to-day activities such as bathing, preparing meals, shopping, managing finances, etc.?: No Are you currently unemployed and looking for a job?: No Are you interested in more education?: No Please select the resources that you would like help with: None Currently or been in a relationship where the following occur: I choose not to answer THRIVE Score: 2 AUDIT C Alcohol Use Questionnaire (AUDIT-C) 1. How often do you have a drink containing alcohol?: Never 3. How often do you have six or more drinks on one occasion?: Never Total Score: 0 LISHA-7 AMB Questionnaire LISHA-7 Date LISHA - 7 assessed: 12/15/24 Feeling nervous, anxious, or on edge: 1 = Several days Not being able to stop or control worryin = Several days Worrying too much about different things: 1 = Several days Trouble relaxin = Several days Being so restless that it is hard to sit still: 1 = Several days Becoming easily annoyed or irritable: 1 = Several days Feeling afraid as if something awful might happen: 1 = Several days Total LISHA-7 score (0-4 normal; 5-9 mild; 10-14 moderate; 15-21 severe): 7 Source: Developed by Drs. Sukhdeep Franz, Ana Alexander, Varinder Muro and colleagues, with an educational malachi from [employer]. LISHA-7 Assessment Billing LISHA-7 Assessment Tool: LISHA-7 Assessment 39248 Review of Systems Narrative Review of Systems - Skin: Reports hives on her back after missing an allergy pill. - Reports very dry skin on hands and feet, with small splits under her nails. - Gastrointestinal: Reports normal bowel movements. - Genitourinary: Denies urinary symptoms, including dysuria or nocturia. - Musculoskeletal: Reports prior severe shoulder pain that fully resolved after a cortisone injection. - Psychiatric: Reports stress and aggravation related to dealing with insurance companies and the healthcare system. Physical exam (Primary Care) Vital Signs: Last Vital Signs Pulse 75 09/14/25 11:23 BP 140/78 H 09/14/25 11:23 Pulse Ox 96 09/14/25 11:23 Oxygen Delivery Method Room Air 09/14/25 11:23 BMI result Body Mass Index 29.3 Tobacco/Smoking Status: Tobacco use Status Tobacco use date assessed 12/15/24 09/14/25 11:24 Patient Tobacco Use Status Current everyday Tobacco 09/14/25 11:24 Tobacco use type Cigarette 09/14/25 11:24 e-Cigarette/Vaping Use Never Used 09/14/25 11:24 PHQ-9: PHQ-9 Score PHQ-9: Total score 0 09/14/25 12:09 Depression Screening Interpretation: Negative Thrive Assessment: Date of Thrive Assessment Date Thrive assessed 12/15/24 09/14/25 11:24 Currently or been in a relationship where the following occur: I choose not to answer Narrative Physical Exam - Constitutional: The patient is an overweight female. - Vitals: Blood pressure 140/x mmHg. - Cardiovascular: Regular rate and rhythm on auscultation. - Respiratory: Lungs are clear to auscultation. 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 E13.9; S36.209S Essential hypertension I10 Hyperlipidemia LDL goal <100 E78.5 Generalized anxiety disorder F41.1 Age-related osteoporosis without current pathological fracture M81.0 Osteoporosis type: age-related Presence of current pathological fracture: without current pathological fracture Gastroesophageal reflux disease without esophagitis K21.9 Esophagitis presence: without esophagitis Bladder mass N32.89 Malignant neoplasm of pancreas, unspecified C25.9 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 Pulmonary emphysema, unspecified emphysema type J43.9 COPD type: emphysema Emphysema type: unspecified Obstructive sleep apnea G47.33 Tobacco abuse Z72.0 Additional Codes LISHA-7 Assessment Billing - LISHA-7 Assessment Tool: LISHA-7 Assessment 35099 ([id number]) Assessment & Plan Assessment & Plan (1) 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 Patient follows up with endocrinology on Tresiba short-acting insulin. Hemoglobin A1c goal of less than 7.0 (2) Essential hypertension: Code(s): I10 - Essential (primary) hypertension Category: Medical Plan: Continue with blood pressure medication. Decrease salt intake and exercise continue with lisinopril 30 mg once a day (3) Hyperlipidemia LDL goal <100: Code(s): E78.5 - Hyperlipidemia, unspecified Category: Medical Plan: Avoid fried foods, chicken skin, eggs, butter margarine, pastries and meat. Be it pork or beef they have a lot of cholesterol LDL goal of less than 100 and triglyceride of less than 150 patient is on atorvastatin 20 mg once a day (4) Generalized anxiety disorder: Comment: Declined any referral for counseling Code(s): F41.1 - Generalized anxiety disorder Category: Medical Plan: Continue with present therapy (5) Osteoporosis: Comment: Alendronate June 2012, September 201812/2022 Code(s): M81.0 - Age-related osteoporosis without current pathological fracture Category: Medical Qualifiers: Osteoporosis type: age-related Presence of current pathological fracture: without current pathological fracture Qualified Code(s): M81.0 - Age- related osteoporosis without current pathological fracture Plan: Discussed about calcium and vitamin-D patient is on alendronate and repeat bone density requested (6) GERD (gastroesophageal reflux disease): Code(s): K21.9 - Gastro-esophageal reflux disease without esophagitis Category: Medical Qualifiers: Esophagitis presence: without esophagitis Qualified Code(s): K21.9 - Gastro-esophageal reflux disease without esophagitis Plan: Avoid the foods that causes that usually spicy foods, tomato products, juices, coffee, soda and foods that your sensitive to. After eating do not lie down, allow 3-4 hours before in lie down. And keep the head of bed above 30 degrees to avoid the acid from going up. (7) Bladder mass: Comment: Urinary bladder cancer [facility] Dr. Aranda. 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 Driver, Dr. Angeles sent to Dr. Pope 10/2017 CT scan September 2019 status post distal pancreatectomy 2017 ff up in [place] July 2023 2 subcentimeter intra-abdominal nodules, PET January 2024 of ADD the lymph nodes January 2025 modest progression of lymph nodes Code(s): C25.9 - Malignant neoplasm of pancreas, unspecified Category: Medical Plan: Continue to follow-up with Gastroenterology (9) Behcet's disease: Code(s): M35.2 - Behcet's disease Category: Medical Plan: Continue to follow-up with Rheumatology (10) COPD (chronic obstructive pulmonary disease): Code(s): J44.9 - Chronic obstructive pulmonary disease, unspecified Category: Medical Qualifiers: COPD type: emphysema Emphysema type: unspecified Qualified Code(s): J43.9 - Emphysema, unspecified Plan: On albuterol inhaler stable (11) Obstructive sleep apnea: Comment: Study done 01/02/2023 mild bertin, AutoPAP 5-15 cm of water Code(s): G47.33 - Obstructive sleep apnea (adult) (pediatric) Category: Medical Plan: Continue to use the CPAP more than 4 hours a night and benefits from this follows up with Neurology (12) Tobacco abuse: Code(s): Z72.0 - Tobacco use Category: Medical Plan: Patient is strongly advised to stop smoking Plan Plan Patient was informed and verbally consented to the use of an ambient scribe for clinic note documentation during this visit. 1. Type 2 Diabetes Mellitus The patient's hemoglobin A1c is 7.5%, which is above the target goal of less than 7.0%. She will continue to follow up with endocrinology for management. Her insulin regimen will be changed from Tresiba back to Lantus in September due to insurance coverage. 2. Hypertension The patient's blood pressure was 140/x in the office, but she reports good readings at home. She will continue her current therapy of lisinopril 30 mg once a day. 3. Hypercholesterolemia The patient's LDL is 80, which is below the goal of less than 100. She will continue atorvastatin 20 mg once a day. 4. Osteoporosis The patient is on alendronate. A repeat bone density scan has been requested as it is now due. 5. Elevated Liver Enzymes Recent labs showed mildly elevated liver enzymes. An ultrasound of the liver will be ordered for further evaluation. 6. Neuroendocrine Tumor Of Pancreas The patient follows up with oncology in [place]. A recent CT scan showed slow tumor growth, and her specialist has not recommended starting treatment yet. The patient was advised to call her specialist for clarification on the treatment plan and to ensure all medical records are sent over. 7. Obstructive Sleep Apnea The patient reports good compliance and benefit from her CPAP machine. She will continue to use CPAP for more than 4 hours per night and follow up with neurology as needed. 8. Chronic Obstructive Pulmonary Disease And Tobacco Use Disorder The patient's COPD is stable on an albuterol inhaler. She was strongly advised to stop smoking. 9. Generalized Anxiety Disorder The patient requested a refill for lorazepam, which was sent to the pharmacy. Discussion Notes I reviewed the patient's recent lab results with her. We discussed that her hemoglobin A1c is 7.5%, which is mildly elevated above the goal of less than 7.0. I informed her that her cholesterol numbers are excellent, with an LDL of 80. I also noted that two of her liver numbers are mildly elevated and that we should re-evaluate this with an ultrasound, to which she agreed. We discussed the finding of white blood cells in her urine, and I reassured her that since she has no symptoms, no treatment is needed at this time. We discussed health maintenance, including the need for a repeat bone density scan, which I have ordered. I strongly advised her to quit smoking. I refilled her lorazepam as requested. We scheduled a follow-up visit in three months. Patient Instructions - Continue your current medications, including lisinopril for blood pressure, atorvastatin for cholesterol, and alendronate for osteoporosis. - Continue to check your blood pressure at home. - Continue to follow up with your enterprise systems architect for your diabetes. - Be aware that your insulin may be switched from Tresiba to Lantus in September due to your insurance plan. - It is strongly recommended that you quit smoking. - We will be ordering an ultrasound of your liver to investigate your lab results. - An order has been placed for you to get a repeat bone density scan. - Your prescription for lorazepam has been refilled. - Please schedule a mammogram, as it is now due. - Continue using your CPAP machine every night. - Contact your oncology team in [place] to get more information about the treatment plan for your pancreas. - Please schedule a follow-up appointment in three months. Orders: Orders US abdomen complete Today R79.89 - Other specified abnormal findings of blood chemistry Medications: Refilled lorazepam 1 mg PO DAILY PRN 30 tabs 0RF anxiety 30 days I10 - Essential (primary) hypertension
== END 2025-09-14 12:17 | disposition home or self-care (01) ==
LOC: HO.HMCH 11:07
PROVIDERS: PCP Internal Medicine; Visit Provider Internal Medicine
DX: E13.9 Other specified diabetes mellitus without complications (principal); S36.209S Unspecified injury of unspecified part of pancreas, sequela; I10 Essential (primary) hypertension; E78.5 Hyperlipidemia, unspecified; F41.1 Generalized anxiety disorder; M81.0 Age-related osteoporosis without current pathological fracture; K21.9 Gastro-esophageal reflux disease without esophagitis; N32.89 Other specified disorders of bladder; C25.9 Malignant neoplasm of pancreas, unspecified; M35.2 Behcet's disease; J43.9 Emphysema, unspecified; G47.33 Obstructive sleep apnea (adult) (pediatric); Z72.0 Tobacco use

== ENCOUNTER → 2025-09-14 11:05 | Outpatient (BNVA) | payer MEDICARE, OTHER, SELFPAY | PROVIDERS: PCP Internal Medicine; Visit Provider Internal Medicine | DX: E13.9 Other specified diabetes mellitus without complications (principal); S36.209S Unspecified injury of unspecified part of pancreas, sequela; C25.9 Malignant neoplasm of pancreas, unspecified; I10 Essential (primary) hypertension; E78.00 Pure hypercholesterolemia, unspecified; M81.0 Age-related osteoporosis without current pathological fracture; F41.1 Generalized anxiety disorder; G47.33 Obstructive sleep apnea (adult) (pediatric); R74.8 Abnormal levels of other serum enzymes; R82.90 Unspecified abnormal findings in urine; M35.2 Behcet's disease; J43.9 Emphysema, unspecified; Z13.39 Encounter for screening examination for other mental health and behavioral disorders; Z72.0 Tobacco use; Z79.4 Long term (current) use of insulin; Z85.51 Personal history of malignant neoplasm of bladder; Z90.410 Acquired total absence of pancreas; Z99.89 Dependence on other enabling machines and devices | CPT/HCPCS: 96127; 99212 ==